=== PATIENT | female | born 1965 | race Caucasian/White ===

== ENCOUNTER 2019-10-14 17:10 | Emergency (ER) | payer MEDICARE, MEDICAID, SELFPAY ==
[2019-10-14 17:58] VITALS: BP 164/110; PULSE 99; RESP 18; TEMP 36.8; O2SAT 96; BMI 38.5
--- NOTE | 2019-10-14 19:07 | W.ED.HA ---
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 She has a past history of migraines and currently sees Dr. Powell for migraines. This headache is her typical migraine. She has right retro-orbital pain, photophobia and nausea. She has not had any vomiting. This started today and she rates this migraine and an 8/10. She denies any chest pain, shortness of breath, abdominal pain, upper respiratory symptoms, sinus pain and pressure. Review of Systems General: Reports: 10 or more systems reviewed and unremarkable except in HPI and below PFSH ED PFSH: Statuses (acute, chronic, etc) shown below reflect problem list status as previously entered and may not be historically accurate Social History Smoking and tobacco status: never smoked Physical Exam Narrative: EXAM NARRATIVE: Patient is a 54-year-old female who was lying in her exam room with the lights off. She appeared to be in moderate pain due to migraine. Const: COMMON NORMALS: oriented x3 HENMT: COMMON NORMALS: normocephalic HEAD & SCALP: normocephalic MOUTH: oral and palatal mucosa normal and moist mucous membranes abnormal (mild dryness) THROAT: posterior oropharynx normal and uvula midline Neck/C-Spine: COMMON NORMALS: supple GENERAL: Yes normal visual inspection Resp: COMMON NORMALS: normal respiratory effort, no retractions, no use of accessory muscles and clear to auscultation bilaterally AUSCULTATION: clear to auscultation bilaterally Cardio: COMMON NORMALS: regular rate, regular rhythm, S1 normal heart sound, S2 normal heart sound, no gallops, no clicks, no murmurs and peripheral pulses 2+ throughout RATE: regular rate RHYTHM: regular rhythm HEART SOUNDS: S1 normal and S2 normal PERIPHERAL PULSES: pulses 2+ throughout GI: COMMON NORMALS: normal to inspection, nondistended, normoactive bowel sounds, soft to palpation, non-tender and no masses PALPATION: Yes soft : COMMON NORMALS: Yes no CVA tenderness BLADDER/KIDNEY EXAM: Yes no CVA tenderness Back/Pelvis: COMMON NORMALS: no CVA tenderness Neuro: COMMON NORMALS: oriented x3, CN's II-XII intact bilaterally, moves all extremities, no focal motor deficits and no sensory deficits noted SENSORY EXAM: Yes extremities (intact) MOTOR EXAM: strength 5/5 throughout Course Vital Signs: Vital signs: Vital Signs Temperature 98.3 F 10/14/19 17:58 Pulse Rate 100 10/14/19 21:05 Respiratory Rate 14 10/14/19 21:05 Blood Pressure 151/97 10/14/19 21:05 Pulse Oximetry 95 10/14/19 21:05 MDM - Headache MDM Narrative: Medical decision making narrative: Patient is a 54-year-old female who comes into the ED with an acute migraine. Patient has a past medical history of chronic migraines and sees Dr. Powell for migraine management. Physical exam was unremarkable and no neurological deficits found upon examination. Patient was given IV fluids, Decadron, Toradol, Reglan, Benadryl While in the ED. Her migraine greatly improved and she was discharged and told to follow-up with primary care doctor in 5-7 days. Discharge Plan Discharge Patient Disposition: Home, Self-Care Clinical Impression: Migraine Qualifiers: Migraine type: ophthalmoplegic Intractability: intractable Qualified Code(s): G43.B1 - Ophthalmoplegic migraine, intractable Condition: Stable Prescriptions: No Action pregabalin [Lyrica] 200 mg capsule 200 mg PO TID RF: 0 albuterol sulfate [ProAir HFA] 90 mcg/actuation HFA aerosol inhaler 2 puff INHALATION QID PRN (Reason: shortness of breath or wheezing) RF: 0 Linzess 290 mcg capsule 290 mcg PO QAM RF: 0 estradiol [Estrace] 2 mg tablet 2 mg PO ONCE RF: 0 losartan 50 mg tablet 50 mg PO ONCE RF: 0 furosemide 20 mg tablet 20 mg PO BID RF: 0 Aimovig Autoinjector 140 mg/mL auto-injector 140 mg SUBCUT .MONTHLY RF: 0 diltiazem HCl [Cardizem CD] 300 mg capsule,extended release 24hr 300 mg PO QAM RF: 0 pantoprazole [Protonix] 40 mg tablet,delayed release (DR/EC) 40 mg PO QAM RF: 0 duloxetine [Cymbalta] 60 mg capsule,delayed release(DR/EC) 60 mg PO BID RF: 0 clonidine HCl 0.1 mg tablet 0.1 mg PO ONCE PRN (Reason: hypertensive emergency) RF: 0 Discharge Orders: Discharge Order (Routine); Ordered 10/14/19 Ordered By: Alex Salazar Referrals: Estephania Booker DO [Primary Care Provider] - Discharge Diet: Regular Discharge Activity: Resume usual activity Activity Restrictions/Additional Instructions: Follow-up here primary care doctor in 5-7 days. Contact neurologist to follow-up on recent migraines. 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
[2019-10-14 19:09] VITALS: BP 136/107; PULSE 91; RESP 16; O2SAT 95
[2019-10-14] MEDS: sodium chloride 0.9% 1,000 ML 999 ML IV (19:49)
[2019-10-14] MEDS: diphenhydrAMINE 50 mg/mL SDV 1mL 25 MG IVP (19:52)
[2019-10-14] MEDS: metoclopramide 5 mg/mL SDV 2 mL 10 MG IV (19:52)
[2019-10-14] MEDS: dexamethasone 10 mg/mL INJ IVP (19:53)
[2019-10-14] MEDS: ketorolac 30 mg/mL INJ IVP (19:54)
[2019-10-14 19:57] VITALS: BP 173/104; PULSE 95; RESP 16; O2SAT 95
[2019-10-14 20:57] VITALS: BP 170/118; PULSE 99; RESP 16; O2SAT 96
[2019-10-14 21:05] VITALS: BP 151/97; PULSE 100; RESP 14; O2SAT 95
--- NOTE | 2019-10-14 21:11 | PC.NURSE ---
CATHETER INTACT UPON REMOVAL
== END 2019-10-14 21:11 | disposition home or self-care (01) ==
PROVIDERS: Emergency Provider Physician Assistant; Family Provider Family Medicine; PCP Family Medicine
DX: G43.B1 Ophthalmoplegic migraine, intractable (principal)
CPT/HCPCS: 96360; 96374; 99281; J1100; J1200; J1885; J2765; J7030

== ENCOUNTER → 2019-10-23 14:13 | Outpatient (BNVA) | payer MEDICARE, MEDICAID, SELFPAY | PROVIDERS: Family Provider Family Medicine; PCP Family Medicine; Visit Provider Specialist | DX: G43.019 Migraine without aura, intractable, without status migrainosus (principal); F44.5 Conversion disorder with seizures or convulsions; F60.3 Borderline personality disorder | CPT/HCPCS: 99214 ==

== ENCOUNTER 2019-10-29 13:19 | Outpatient (CLI) | payer MEDICARE, MEDICAID, SELFPAY ==
--- NOTE | 2019-10-29 13:50 | XR_ITS ---
WS: [id number] RIGHT SHOULDER: 3 VIEW(S) TECHNIQUE: Internal and external rotation with Y view. HISTORY: PAIN IN RIGHT SHOULDER COMPARISON: None available. No fracture or dislocation or soft tissue abnormality. Glenohumeral and AC joints are unremarkable. XR/XR shoulder RT min 2V* [id number] IMPRESSION: Normal RIGHT shoulder.
== END 2019-10-29 13:20 | disposition home or self-care (01) ==
LOC: RADWPI 13:23
PROVIDERS: Family Provider Family Medicine; PCP Family Medicine; Visit Provider Family Medicine
DX: M25.511 Pain in right shoulder (principal)
CPT/HCPCS: 73030

== ENCOUNTER 2019-11-10 19:13 | Emergency (ER) | payer MEDICARE, MEDICAID, SELFPAY ==
[2019-11-10 19:24] VITALS: BP 154/91; PULSE 89; RESP 16; TEMP 36.9; O2SAT 97; BMI 37.4
--- NOTE | 2019-11-10 20:36 | W.ED.HA ---
HPI - Headache General: Chief Complaint: Headache Stated Complaint: MIGRAINE Time Seen by Provider: 11/10/19 20:21 Source: patient Mode of arrival: ambulatory Limitations: no limitations History of Present Illness: HPI Narrative: Patient comes in today for complaints of migraine. Patient reports headache is similar to previous migraines. Patient reports not being able to refill her Aimovig prior to close of pharmacy on Tuesday. Patient tried DHE spray without any relief of pain Review of Systems General: Reports: 10 or more systems reviewed and unremarkable except in HPI and below Neuro: Reports: headache PFSH ED PFSH: Statuses (acute, chronic, etc) shown below reflect problem list status as previously entered and may not be historically accurate Medical History (Updated 11/10/19 @ 23:12 by ELLYN Barksdale) Depression with anxiety (Acute) Herpes genitalia (Acute) Hot flashes (Acute) HTN (hypertension) with goal to be determined (Acute) Irritable bowel disease (Acute) Family History (Updated 10/24/19 @ 13:48 by Inga Damon MA) Other Anesthesia complication CAD (coronary artery disease) Cancer Chronic kidney disease (CKD) Dementia Diabetes Hypertension Psychiatric illness Stroke Suicide Denies family history of Clotting disorder Hyperlipidemia Bleeding disorder Family history of premature coronary artery disease Lung disease Social History Smoking and tobacco status: never smoked Alcohol intake: former Desire information about alcohol rehabilitation?: No Counseling given: No Desire information about substance/drug rehabilitation?: No Counseling given: No Adopted: No Caregiver/support person: Yes Lives independently: Yes Housing: House Marital status: Number of children: 1 Number of grandchildren: 4 Highest education level completed: Some College, No Degree service: No Current occupational status: retired and disabled Current occupational exposures/hazards: No Pets and animals: No History of recent travel: No Leisure activites: reading Sexually active: No Current gender identity: Female Special lisa needs: No Agree to transfusion: Yes Physical Exam Const: COMMON NORMALS: no apparent distress and oriented x3 GENERAL APPEARANCE: cooperative HENMT: COMMON NORMALS: normocephalic, external ears normal, EAC's normal, TM's normal bilaterally and external nose normal HEAD & SCALP: normal to inspection and normocephalic FACE & SINUS: normal facial exam NOSE: external nose normal GENERAL EAR: hearing not grossly impaired EXTERNAL EAR: Yes external ears normal EXTERNAL AUDITORY CANAL: EAC's normal TYMPANIC MEMBRANE: TM's normal bilaterally MOUTH: oral and palatal mucosa normal THROAT: posterior oropharynx normal Eye: COMMON NORMALS: PERRL and EOMs intact bilaterally PUPIL: Yes PERRL Neck/C-Spine: COMMON NORMALS: full ROM and no lymphadenopathy Lymph: LYMPHATIC: no lymphedema noted Chest: COMMONS NORMALS: inspection of chest normal and palpation of chest normal Resp: COMMON NORMALS: normal respiratory effort and clear to auscultation bilaterally AUSCULTATION: clear to auscultation bilaterally Cardio: COMMON NORMALS: regular rate and regular rhythm RATE: regular rate RHYTHM: regular rhythm GI: COMMON NORMALS: normal to inspection, nondistended, normoactive bowel sounds and non-tender : COMMON NORMALS: Yes no CVA tenderness BLADDER/KIDNEY EXAM: Yes no CVA tenderness Back/Pelvis: COMMON NORMALS: no CVA tenderness and thoracic and lumbar spine normal to inspection Extremity: COMMON NORMALS: normal to inspection GENERAL: No edema Neuro: COMMON NORMALS: oriented x3, moves all extremities and no focal motor deficits Psych: COMMON NORMALS: mental status grossly normal and cooperative Skin: COMMON NORMALS: no rashes or lesions noted GENERAL SKIN EXAM: no rashes or lesions noted Course ED course: 2133, patient reports minimal pain relief from treatment at this time, will infuse 500 ml of saline and treat further with 15 mg toradol and 12.5 mg promethazine. wjw Vital Signs: Vital signs: Vital Signs Temperature 98.4 F 11/10/19 19:24 Pulse Rate 74 11/10/19 23:27 Respiratory Rate 18 11/10/19 23:27 Blood Pressure 182/97 11/10/19 23:27 Pulse Oximetry 100 11/10/19 23:27 MDM - Headache MDM Narrative: Medical decision making narrative: Patient comes in today with complaints of migraine. On exam patient appeared well with no focal neural deficits. Differential diagnosis includes migraine, status migrainous, tension headache, malingering. Patient was medicated with Benadryl and Reglan with minimal relief of headache, we then dosed patient with some Toradol and promethazine which she reported some improvement. Patient then asked for a dose of DHE and was given 1 mg. Patient did have some further improvement after the DHE rating her pain at a 4 out of 10 scale. Patient then was wanting to go home to sleep. Patient was recommended to follow-up with primary care or return for worsening signs and symptoms. Patient reports understanding agreed to plan. Discharge Plan Discharge Patient Disposition: Home, Self-Care Clinical Impression: Migraine Qualifiers: Migraine type: without aura Status migrainosus presence: without status migrainosus Intractability: intractable Qualified Code(s): G43.019 - Migraine without aura, intractable, without status migrainosus Condition: Stable Prescriptions: No Action dihydroergotamine [Migranal] 0.5 mg/pump act. (4 mg/mL) spray,non-aerosol 1 spray INTRANASAL .COMPLEX PRN (Reason: Episodic migraine) Qty: 4 RF: 0 clonidine HCl 0.1 mg tablet 0.1 mg PO ONCE PRN (Reason: hypertensive emergency) 30 Days Qty: 30 RF: 0 diltiazem HCl [Cardizem CD] 300 mg capsule,extended release 24hr 300 mg PO QAM 90 Days Qty: 90 RF: 0 duloxetine [Cymbalta] 60 mg capsule,delayed release(DR/EC) 120 mg PO DAILY 90 Days Qty: 180 RF: 0 estradiol [Estrace] 2 mg tablet 2 mg PO DAILY Qty: 30 RF: 0 furosemide 20 mg tablet 20 mg PO BID 90 Days Qty: 180 RF: 0 Linzess 290 mcg capsule 290 mcg PO QAM 90 Days Qty: 90 RF: 0 losartan 50 mg tablet 50 mg PO DAILY 90 Days Qty: 90 RF: 0 pantoprazole [Protonix] 40 mg tablet,delayed release (DR/EC) 40 mg PO QAM 90 Days Qty: 90 RF: 0 pregabalin [Lyrica] 200 mg capsule 200 mg PO TID 30 Days Qty: 90 RF: 0 acyclovir 400 mg tablet 400 mg PO BID 60 Days Qty: 60 RF: 0 Aimovig Autoinjector 140 mg/mL auto-injector 140 mg SUBCUT .MONTHLY RF: 0 dihydroergotamine 0.5 mg/pump act. (4 mg/mL) spray,non-aerosol 1 spray INTRANASAL .prn PRN (Reason: migraine headache) Qty: 5 RF: 3 Seroquel 100 mg tablet 100 mg PO DAILY RF: 0 Discharge Orders: Discharge Order (Routine); Ordered 11/10/19 Ordered By: Daniel Soto Referrals: Estephania Booker DO [Primary Care Provider] - Discharge Diet: Usual diet Discharge Activity: Increase activity as tolerated Patient Instructions: Headache - Migraine (Adult) Activity Restrictions/Additional Instructions: Drink plenty of water Continue routine medications as directed Follow-up with primary care in one week Discharge Date/Time: 11/10/19 23:28 Coding Level of Care Code ED Environmental Compliance Inspector for Chg Fwd Exam Problem Focused
[2019-11-10] MEDS: diphenhydrAMINE 50 mg/mL SDV 1mL IVP (20:48)
[2019-11-10] MEDS: metoclopramide 5 mg/mL SDV 2 mL 10 MG IVP (20:49)
[2019-11-10] MEDS: ketorolac 30 mg/mL INJ 15 MG IVP (21:54)
[2019-11-10] MEDS: promethazine 25 mg/mL SDV 1 mL 12.5 MG IV (21:54)
[2019-11-10] MEDS: sodium chloride 0.9% 500 ML 999 ML IV (21:55)
--- NOTE | 2019-11-10 21:56 | PC.NURSE ---
PHENERGEN 12.5 MG DILUTED IN SALINE BAG OF 500 ML.
[2019-11-10] MEDS: dihydroergotamine 1 mg/mL Inj IVP (22:49)
[2019-11-10 23:27] VITALS: BP 182/97; PULSE 74; RESP 18; O2SAT 100
== END 2019-11-10 23:28 | disposition home or self-care (01) ==
PROVIDERS: Emergency Provider Nurse Practitioner Family; Family Provider Family Medicine; PCP Family Medicine
DX: G43.019 Migraine without aura, intractable, without status migrainosus (principal); I10 Essential (primary) hypertension
CPT/HCPCS: 96360; 96374; 96375; 99282; 99283; J1110; J1200; J1885; J2550; J2765; J7040

== ENCOUNTER 2019-11-13 15:42 | Emergency (ER) | payer MEDICARE, MEDICAID, SELFPAY ==
[2019-11-13 15:48] VITALS: BP 166/88; PULSE 94; RESP 16; TEMP 36.6; O2SAT 98; BMI 38.0
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
[2019-11-13 18:10] VITALS: BP 148/80; PULSE 90; RESP 18; TEMP 37; O2SAT 98
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
[2019-11-13] MEDS: HYDROcodone-acetaminophen 10-325 mg Tablet 1 TAB PO (18:31)
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
[2019-11-13] MEDS: dexamethasone 10 mg/mL INJ IM (20:25)
[2019-11-13] MEDS: diphenhydrAMINE 50 mg/mL SDV 1mL 25 MG IM (20:26)
[2019-11-13] MEDS: metoclopramide 5 mg/mL SDV 2 mL 10 MG IM (20:29)
[2019-11-13] MEDS: SUMAtriptan 6 mg/0.5 mL SDV SUBCUT (20:30)
[2019-11-13 21:22] VITALS: BP 160/82; PULSE 89; RESP 14; TEMP 36.7; O2SAT 97
== END 2019-11-13 20:45 | disposition home or self-care (01) ==
PROVIDERS: Emergency Provider Physician Assistant; Family Provider Family Medicine; PCP Family Medicine
DX: S13.4XXA Sprain of ligaments of cervical spine, initial encounter (principal); G44.209 Tension-type headache, unspecified, not intractable; I10 Essential (primary) hypertension; R40.2412 Glasgow coma scale score 13-15, at arrival to emergency department; V89.2XXA Person injured in unspecified motor-vehicle accident, traffic, initial encounter; Y92.410 Unspecified street and highway as the place of occurrence of the external cause
CPT/HCPCS: 70450; 71046; 72125; 72131; 96372; 99281; 99283; J1100; J1200; J2765; J3030

== ENCOUNTER → 2019-11-22 09:50 | Outpatient (BNVA) | payer MEDICARE, MEDICAID, SELFPAY | PROVIDERS: Family Provider Family Medicine; PCP Family Medicine; Visit Provider Nurse Practitioner | DX: M54.16 Radiculopathy, lumbar region (principal); S13.4XXA Sprain of ligaments of cervical spine, initial encounter; X58.XXXA Exposure to other specified factors, initial encounter; Z79.891 Long term (current) use of opiate analgesic | CPT/HCPCS: 99214 ==

== ENCOUNTER 2019-11-24 18:10 | Emergency (ER) | payer MEDICARE, MEDICAID, SELFPAY ==
[2019-11-24 18:30] VITALS: BP 170/94; PULSE 100; RESP 28; TEMP 36.7; O2SAT 98; BMI 37.4
--- NOTE | 2019-11-24 19:01 | PC.NURSE ---
Patient reports that she has a severe migraine. Patient states this migraine started around 1600. Patient reports that she took her PRN medication that the neurologist prescribed. Patient states nothing has helped. Patient reports that she is nauseous and is having light sensitivity.
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
[2019-11-24] MEDS: ondansetron 2 mg/ML SDV 2 mL 8 MG IVP (19:35)
[2019-11-24] MEDS: ketorolac 30 mg/mL INJ IVP (19:36)
[2019-11-24] MEDS: methocarbamol 750 mg Tablet PO (19:37)
[2019-11-24] MEDS: sodium chloride 0.9% 1,000 ML 999 ML IV (19:41)
[2019-11-24] MEDS: dexamethasone 4 mg/mL INJ 6 MG IVP (20:30)
[2019-11-24] MEDS: diphenhydrAMINE 50 mg/mL SDV 1mL IVP (21:30)
[2019-11-24] MEDS: dihydroergotamine 1 mg/mL Inj 0.5 MG IVP (21:33)
[2019-11-24] MEDS: HYDROcodone-acetaminophen 7.5-325 mg Tablet 1 TAB PO (21:52)
[2019-11-24 22:42] VITALS: BP 142/90; PULSE 98; RESP 16; O2SAT 98
== END 2019-11-24 22:42 | disposition home or self-care (01) ==
PROVIDERS: Emergency Provider Nurse Practitioner Family; Family Provider Family Medicine; PCP Family Medicine
DX: G43.909 Migraine, unspecified, not intractable, without status migrainosus (principal)
CPT/HCPCS: 96360; 96361; 96374; 96375; 99282; 99283; J1100; J1110; J1200; J1885; J2405; J7030

== ENCOUNTER → 2019-11-26 14:10 | Outpatient (BNVA) | payer MEDICARE, MEDICAID, SELFPAY | PROVIDERS: Family Provider Family Medicine; PCP Family Medicine; Visit Provider Nurse Practitioner Psychiatric/Mental Health | DX: F33.3 Major depressive disorder, recurrent, severe with psychotic symptoms (principal); F40.218 Other animal type phobia | CPT/HCPCS: 99214 ==

== ENCOUNTER 2019-12-12 10:34 | Outpatient (RCR) | payer OTHER, MEDICARE, MEDICAID, SELFPAY | END 2020-01-08 23:59 | disposition home or self-care (01) | LOC: SPT 10:34 | PROVIDERS: Family Provider Family Medicine; PCP Family Medicine; Referring Provider Family Medicine; Visit Provider Family Medicine | DX: S13.4XXD Sprain of ligaments of cervical spine, subsequent encounter (principal); X58.XXXD Exposure to other specified factors, subsequent encounter | CPT/HCPCS: 97110; 97161 ==

== ENCOUNTER → 2020-01-14 08:46 | Outpatient (BNVA) | payer MEDICARE, MEDICAID, SELFPAY | PROVIDERS: Family Provider Family Medicine; PCP Family Medicine; Visit Provider Nurse Practitioner Psychiatric/Mental Health | DX: F33.3 Major depressive disorder, recurrent, severe with psychotic symptoms (principal); F40.218 Other animal type phobia | CPT/HCPCS: 99214 ==

== ENCOUNTER → 2020-01-16 08:50 | Outpatient (BNVA) | payer MEDICARE, MEDICAID, SELFPAY | PROVIDERS: Family Provider Family Medicine; PCP Family Medicine; Visit Provider Anesthesiology | DX: G89.29 Other chronic pain (principal); M54.16 Radiculopathy, lumbar region; Z79.891 Long term (current) use of opiate analgesic | CPT/HCPCS: 99214 ==

== ENCOUNTER → 2020-02-05 08:25 | Outpatient (BNVA) | payer MEDICARE, MEDICAID, SELFPAY | PROVIDERS: Family Provider Family Medicine; PCP Family Medicine; Visit Provider Social Worker | DX: F33.3 Major depressive disorder, recurrent, severe with psychotic symptoms (principal); F60.3 Borderline personality disorder | CPT/HCPCS: 90834 ==

== ENCOUNTER 2020-02-12 20:10 | Emergency (ER) | payer MEDICARE, MEDICAID, SELFPAY ==
[2020-02-12 20:16] VITALS: BP 159/99; PULSE 96; RESP 18; TEMP 36.6; O2SAT 99; BMI 35.6
--- NOTE | 2020-02-12 22:01 | ED_ITS ---
HPI - Headache General: Chief Complaint: Headache Stated Complaint: migraine Time Seen by Provider: 02/12/20 21:47 Source: patient Mode of arrival: ambulatory Limitations: no limitations History of Present Illness: HPI Narrative: Patient is a 54-year-old female who presents to ED today with complaints of a migraine headache that began around 1 PM this afternoon. Patient states she has a history of migraine headaches and states her headache today feels identical. She is having some nausea without vomiting. She states she tried to doses of her sumatriptan as well as a Tylenol migraine without relief. She is currently rating her headache at a 9.5/10. MD elicited complaint: headache and migraine Pertinent past history: migraines Onset (ago): hour(s) Onset description: gradually Severity: severe Pain scale (0-10): 9 Relieving factors: rest Associated symptoms: Reports no associated symptoms and nausea; Deny chest pain, confusion, fever(s), malaise, rash or vomiting Treatments prior to arrival: acetaminophen and migraine medication Review of Systems Const: Denies: fever, chills, fatigue or malaise Eyes: Reports: photophobia; Denies: change in vision, blurry vision, eye discomfort, floaters or seeing flashes ENMT: Denies: throat pain, enlarged tonsils, painful swallowing or nasal congestion Card: Denies: chest pain Resp: Denies: shortness of breath GI: Reports: nausea; Denies: abdominal pain or vomiting Musc: Denies: neck pain or back pain Skin/Breast: Denies: rash Neuro: Reports: headache; Denies: numbness in extremities, weakness in extremities, changes in sensation, lack of coordination, difficulty walking, frequent falls, dizziness, vertigo, confusion, behavioral changes, slurred speech, difficulty communicating thoughts or seizure-like activity [facility] ED PFSH: Surgical History (Updated 02/07/20 @ 10:56 by Krys Colón APN, JOHNATHON) H/O tubal ligation (~2008) History of augmentation of both breasts (~2012) SILICONE IMPLANTS Hx of abdominoplasty (~2009) Hx of section (~2008) Hx of decompressive lumbar laminectomy L5-S1 [facility] IN [place], [place]. Hx of hernia repair (~2012) umbilical Hx of hysterectomy (~2008) CHRISTINA-- ovaries spared. Social History Smoking and tobacco status: never smoked Alcohol intake: current Alcohol intake frequency: holidays/special occasions only Physical Exam Const: COMMON NORMALS: no apparent distress, average body habitus, oriented x3, no limitations, healthy appearing, alert and well nourished ORIENTATION/CONSCIOUSNESS: Yes oriented to person, Yes oriented to place and Yes oriented to time HENMT: COMMON NORMALS: normocephalic, head/scalp atraumatic, hearing grossly normal bilaterally, external ears normal, EAC's normal, TM's normal bilaterally, nasal mucous membranes and turbinates normal and oropharynx normal HEAD & SCALP: normocephalic and atraumatic FACE & SINUS: normal facial exam and sinuses nontender NOSE: nasal mucous membranes and turbinates normal EXTERNAL EAR: Yes external ears normal EXTERNAL AUDITORY CANAL: EAC's normal TYMPANIC MEMBRANE: TM's normal bilaterally Eye: COMMON NORMALS: PERRL and EOMs intact bilaterally PUPIL: Yes PERRL Neck/C-Spine: COMMON NORMALS: full ROM, no lymphadenopathy and no meningeal signs Resp: COMMON NORMALS: normal respiratory effort and clear to auscultation bila terally AUSCULTATION: clear to auscultation bilaterally Cardio: COMMON NORMALS: regular rate and regular rhythm RATE: regular rate RHYTHM: regular rhythm Neuro: [place] COMA SCALE: document GCS findings Institute coma scale eye opening: Spontaneous Institute coma scale verbal response: Orientated Institute coma scale motor response: Obey commands Institute coma scale total score: 15 COMMON NORMALS: oriented x3, CN's II-XII intact bilaterally, moves all extremities, no focal motor deficits, no sensory deficits noted and gait normal SENSORIUM/ORIENTATION: Yes alert, Yes oriented to person, Yes oriented to place and Yes oriented to time MENINGEAL SIGNS: Yes no meningeal signs Skin: COMMON NORMALS: no rashes or lesions noted GENERAL SKIN EXAM: no rashes or lesions noted Course Vital Signs: Vital signs: Vital Signs Temperature 97.8 F 02/12/20 20:16 Pulse Rate 96 02/12/20 20:16 Respiratory Rate 18 02/12/20 20:16 Blood Pressure 159/99 02/12/20 20:16 Pulse Oximetry 99 02/12/20 20:16 MDM - Headache MDM Narrative: Medical decision making narrative: pts SILVERMAN down from a 9.5/10 to a 0/10; she is ready to be discharged Discharge Plan Discharge Patient Disposition: Home, Self-Care Clinical Impression: Migraine Qualifiers: Migraine type: without aura Status migrainosus presence: without status migrainosus Intractability: not intractable Qualified Code(s): G43.009 - Migraine without aura, not intractable, without status migrainosus Condition: Stable Prescriptions: No Action diphenhydramine HCl 25 mg tablet 25 mg PO ONCE PRN (Reason: Headache) RF: 0 sumatriptan 5 mg/actuation spray,non-aerosol 20 mg INTRANASAL Q2H MDD 40mg in 24 hours PRN (Reason: migraine headache) Qty : 6 RF: 0 estradiol 2 mg tablet 2 mg PO DAILY Qty: 90 RF: 3 fluconazole [Diflucan] 150 mg tablet 150 mg PO Q5D Qty: 2 RF: 0 clonidine HCl 0.1 mg tablet 0.1 mg PO DAILY PRN (Reason: high bp) RF: 0 pregabalin 150 mg capsule 150 mg PO TID 30 Days Qty: 90 RF: 2 duloxetine [Cymbalta] 60 mg capsule,delayed release(DR/EC) 120 mg PO DAILY 90 Days Qty: 180 RF: 2 Aimovig Autoinjector 140 mg/mL auto-injector 140 mg SUBCUT .MONTHLY Qty: 1 RF: 6 diltiazem HCl 300 mg capsule,extended release 24 hr 300 mg PO DAILY Qty: 90 RF: 3 Discharge Orders: Discharge Order (Routine); Ordered 02/12/20 Ordered By: Emilia Loaiza Referrals: Samuel Miguel MD [Primary Care Provider] - Estephania Booker DO [Family Provider] - Discharge Diet: Usual diet Discharge Activity: Increase activity as tolerated Patient Instructions: Headache - Migraine (Adult), Migraine Headache (ED) Coding Level of Care Code 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
[2020-02-12] MEDS: sodium chloride 0.9% 1,000 ML 999 ML IV (22:26)
[2020-02-12] MEDS: dexamethasone 10 mg/mL INJ 8 MG IVP (22:28)
[2020-02-12] MEDS: ketorolac 60 mg/2 mL INJ 30 MG IVP (22:32)
[2020-02-12] MEDS: diphenhydrAMINE 50 mg/mL SDV 1mL IVP (22:32)
[2020-02-12] MEDS: metoclopramide 5 mg/mL SDV 2 mL 10 MG IVP (22:33)
[2020-02-12 23:10] VITALS: BP 116/55; PULSE 82; RESP 18; O2SAT 98
== END 2020-02-12 23:11 | disposition home or self-care (01) ==
PROVIDERS: Emergency Provider Physician Assistant; Family Provider Family Medicine; PCP Family Medicine
DX: G43.009 Migraine without aura, not intractable, without status migrainosus (principal)
CPT/HCPCS: 12345; 96361; 96374; 96375; 99282; 99283; J1100; J1200; J1885; J2765; J7030

== ENCOUNTER → 2020-02-22 14:49 | Outpatient (BNVA) | payer MEDICARE, MEDICAID, SELFPAY | PROVIDERS: Family Provider Family Medicine; PCP Family Medicine; Visit Provider Obstetrics & Gynecology | DX: N89.8 Other specified noninflammatory disorders of vagina (principal) | CPT/HCPCS: 87491; 87591; 87661 ==

== ENCOUNTER → 2020-03-10 08:20 | Outpatient (BNVA) | payer MEDICARE, MEDICAID, SELFPAY | PROVIDERS: Family Provider Family Medicine; PCP Family Medicine; Visit Provider Nurse Practitioner Psychiatric/Mental Health | DX: F33.3 Major depressive disorder, recurrent, severe with psychotic symptoms (principal); F40.218 Other animal type phobia | CPT/HCPCS: 99214 ==

== ENCOUNTER 2020-03-24 18:32 | Emergency (ER) | payer MEDICARE, MEDICAID, SELFPAY ==
[2020-03-24 18:39] VITALS: BP 111/79; PULSE 96; RESP 15; TEMP 36.5; O2SAT 99; BMI 38.3
--- NOTE | 2020-03-24 18:51 | W.ED.HA ---
HPI - Headache General: Chief Complaint: Headache Stated Complaint: walker Time Seen by Provider: 03/24/20 18:47 History of Present Illness: HPI Narrative: Patient is complaining classic migraine medication she is at home was not working which is sumatriptan and started around 12:00 with the pain MD elicited complaint: migraine Onset (ago): hour(s) Time: 12:00 Location: frontal and occipital Severity: severe Quality & Timing: aching and similar to previous headaches Exacerbating factors: light and noise Relieving factors: nothing Associated symptoms: Reports no associated symptoms; Deny chest pain, fever(s), nausea, rash or vomiting Review of Systems Const: Denies: fever(s), chills or body aches Eyes: Denies: change in vision or blurry vision ENMT: Denies: throat pain or nasal congestion Card: Denies: chest pain or dyspnea on exertion Resp: Denies: dyspnea, productive cough or non-productive cough GI: Denies: abdominal pain, nausea or vomiting Musc: Denies: extremity pain Skin/Breast: Denies: rash Neuro: Denies: headache(s) Psych: Denies: anxiety or depression Cecil/Lymph: Denies: easy bruising PFSH ED PFSH: Medical History Chronic low back pain Depression with anxiety Fear of insects (Unknown) Specifically tics Herpes genitalia Hot flashes HTN (hypertension) with goal to be determined Irritable bowel disease Long-term current use of opiate analgesic Lumbar radiculitis Major depressive disorder, recurrent, severe with psychotic symptoms Pain management contract signed Vaginal Discharge Surgical History H/O tubal ligation (~2008) History of augmentation of both breasts (~2012) SILICONE IMPLANTS Hx of abdominoplasty (~2009) Hx of section (~2008) Hx of decompressive lumbar laminectomy L5-S1 [facility] IN [place], [place]. Hx of hernia repair (~2012) umbilical Hx of hysterectomy (~2008) CHRISTINA-- ovaries spared. Family History Other Anesthesia complication CAD (coronary artery disease) Cancer Chronic kidney disease (CKD) Dementia Diabetes Hypertension Psychiatric illness Stroke Suicide Denies family history of Clotting disorder Hyperlipidemia Bleeding disorder Family history of premature coronary artery disease Lung disease Social History Smoking and tobacco status: never smoked Alcohol intake: current Alcohol intake frequency: holidays/special occasions only Alcohol type: wine Physical Exam Const: COMMON NORMALS: no acute distress, average body habitus and patient oriented x3 HENMT: COMMON NORMALS: normocephalic HEAD & SCALP: normal to inspection and normocephalic FACE & SINUS: normal facial exam Eye: COMMON NORMALS: conjunctivae normal GENERAL EYE: appearance normal, both eyes and all related structures CONJUNCTIVA: Yes conjunctivae normal Neck/C-Spine: COMMON NORMALS: no JVD Chest: COMMONS NORMALS: normal inspection of the chest Resp: COMMON NORMALS: normal respiratory effort and clear to auscultation bilaterally AUSCULTATION: clear to auscultation bilaterally Cardio: COMMON NORMALS: no JVD, regular rate and regular rhythm RATE: regular rate RHYTHM: regular rhythm GI: COMMON NORMALS: Normal to inspection, nondistended, normoactive bowel sounds present Extremity: COMMON NORMALS: normal to inspection and full ROM Neuro: COMMON NORMALS: patient oriented x3, CN's II-XII intact bilaterally, moves all extremities, no focal motor deficits and no sensory deficits noted Course Vital Signs: Vital signs: Vital Signs Temperature 97.7 F 03/24/20 18:39 Pulse Rate 96 03/24/20 18:39 Respiratory Rate 15 03/24/20 18:39 Blood Pressure 111/79 03/24/20 18:39 Pulse Oximetry 99 03/24/20 18:39 Discharge Plan Discharge Prescriptions: No Action diphenhydramine HCl 25 mg tablet 25 mg PO ONCE PRN (Reason: Headache) RF: 0 sumatriptan 5 mg/actuation spray,non-aerosol 20 mg INTRANASAL Q2H MDD 40mg in 24 hours PRN (Reason: migraine headache) Qty: 6 RF: 0 estradiol 2 mg tablet 2 mg PO DAILY Qty: 90 RF: 3 clonidine HCl 0.1 mg tablet 0.1 mg PO DAILY PRN (Reason: high bp) RF: 0 pregabalin 150 mg capsule 150 mg PO TID 30 Days Qty: 90 RF: 2 duloxetine [Cymbalta] 60 mg capsule,delayed release(DR/EC) 120 mg PO DAILY 90 Days Qty: 180 RF: 2 quetiapine [Seroquel] 50 mg tablet 50 mg PO .bedtime Qty: 30 RF: 1 Aimovig Autoinjector 140 mg/mL auto-injector 140 mg SUBCUT .MONTHLY Qty: 1 RF: 6 diltiazem HCl 300 mg capsule,extended release 24 hr 300 mg PO DAILY Qty: 90 RF: 3 Coding Level of Care Code ED 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
[2020-03-24] MEDS: sodium chloride 0.9% 1,000 ML 125 ML IV (19:22)
[2020-03-24] MEDS: dexamethasone 4 mg/mL INJ 8 MG IVP (19:24)
[2020-03-24] MEDS: ondansetron 2 mg/ML SDV 2 mL 8 MG IVP (19:24)
[2020-03-24] MEDS: diphenhydrAMINE 50 mg/mL SDV 1mL IVP (19:24)
[2020-03-24 20:51] VITALS: BP 160/86; PULSE 90; RESP 18; O2SAT 98
[2020-03-24] MEDS: ketorolac 30 mg/mL INJ IVP (20:56)
[2020-03-24 22:11] VITALS: BP 159/85; PULSE 86; RESP 18; O2SAT 97
== END 2020-03-24 22:13 | disposition home or self-care (01) ==
PROVIDERS: Emergency Provider Nurse Practitioner Family; PCP Family Medicine
DX: R51 Headache (principal); I10 Essential (primary) hypertension
CPT/HCPCS: 12345; 96361; 96365; 96374; 96375; 99283; J0131; J1100; J1200; J1885; J2405; J7030

== ENCOUNTER → 2020-03-26 15:20 | Outpatient (BNVA) | payer MEDICARE, MEDICAID, SELFPAY | PROVIDERS: PCP Family Medicine; Visit Provider Specialist | DX: G43.111 Migraine with aura, intractable, with status migrainosus (principal); M54.81 Occipital neuralgia | CPT/HCPCS: 64450; 99214; J1030; J3490 ==

== ENCOUNTER 2020-03-31 19:30 | Emergency (ER) | payer MEDICARE, MEDICAID, SELFPAY ==
[2020-03-31 19:35] VITALS: BP 185/75; PULSE 97; RESP 16; TEMP 37.1; O2SAT 98; BMI 38.7
--- NOTE | 2020-03-31 19:47 | W.ED.HA ---
HPI - Headache General: Chief Complaint: Headache Stated Complaint: migraine Time Seen by Provider: 03/31/20 19:40 Source: patient Mode of arrival: ambulatory Limitations: no limitations History of Present Illness: HPI Narrative: Patient is a 54-year-old female presents to ED today with a complaint of a migraine headache. Patient has an extensive migraine headache history and states her headache today feels identical to previous migraines. Patient recently saw Dr. Powell where she had nerve blocks of her occipital and postauricular nerves with Depo-Medrol and Bupivacaine. She has previously been on Botox and taken several other prophylactic and abortive medications for her migraines. She complains of some nausea without vomiting and blurry vision which is common for her migraines. She has no other complaints at this time. MD elicited complaint: headache and migraine Onset description: gradually Location: right, frontal and parietal Severity: severe Pain scale (0-10): 9 Associated symptoms: Reports nausea; Deny chest pain, confusion, fever(s), malaise, rash or vomiting Review of Systems General: Reports: 10 or more systems reviewed and unremarkable except in HPI and below Const: Denies: fever(s), chills, body aches, change in appetite, change in weight, fatigue or malaise Eyes: Reports: blurry vision and photophobia; Denies: floaters or seeing flashes ENMT: Denies: throat pain, enlarged tonsils or odynophagia Card: Denies: chest pain Resp: Denies: dyspnea GI: Reports: nausea; Denies: abdominal pain, vomiting or diarrhea Musc: Denies: neck pain or back pain Skin/Breast: Denies: rash Neuro: Reports: headache(s); Denies: numbness in extremities, weakness in extremities, sensory changes, lack of coordination, difficulty walking, frequent falls, dizziness, vertigo, confusion or Slurred speech present [facility] ED PFSH: Medical History (Updated 03/31/20 @ 21:19 by BRI Staples) Chronic low back pain Depression with anxiety Fear of insects (Unknown) Specifically tics Herpes genitalia Hot flashes HTN (hypertension) with goal to be determined Irritable bowel disease Long-term current use of opiate analgesic Lumbar radiculitis Major depressive disorder, recurrent, severe with psychotic symptoms Pain management contract signed Vaginal Discharge Surgical History H/O tubal ligation (~2008) History of augmentation of both breasts (~2012) SILICONE IMPLANTS Hx of abdominoplasty (~2009) Hx of section (~2008) Hx of decompressive lumbar laminectomy L5-S1 [facility] IN [place], [place]. Hx of hernia repair (~2012) umbilical Hx of hysterectomy (~2008) CHRISTINA-- ovaries spared. Family History Other Anesthesia complication CAD (coronary artery disease) Cancer Chronic kidney disease (CKD) Dementia Diabetes Hypertension Psychiatric illness Stroke Suicide Denies family history of Clotting disorder Hyperlipidemia Bleeding disorder Family history of premature coronary artery disease Lung disease Social History Smoking and tobacco status: never smoked Alcohol intake: current Alcohol intake frequency: holidays/special occasions only Alcohol type: wine History of recent travel: No Physical Exam Const: COMMON NORMALS: average body habitus, patient oriented x3, no limitations, healthy appearing, alert and well nourished GENERAL APPEARANCE: cooperative and in distress (sitting in dark room with hand over head) ORIENTATION/CONSCIOUSNESS: Yes oriented to person, Yes oriented to place and Yes oriented to time HENMT: COMMON NORMALS: normocephalic, atraumatic, hearing grossly normal bilaterally, external ears normal, EAC's normal, TM's normal bilaterally, Normal external nose present, Normal nasal mucous membranes and turbinates present, moist oral mucous membranes and oropharynx normal HEAD & SCALP: normal to inspection, normocephalic and atraumatic FACE & SINUS: normal facial exam and sinuses nontender NOSE: Normal external nose present and Normal nasal mucous membranes and turbinates present EXTERNAL EAR: Yes external ears normal EXTERNAL AUDITORY CANAL: EAC's normal TYMPANIC MEMBRANE: TM's normal bilaterally Eye: COMMON NORMALS: Equal, round and reactive pupils present, EOMs intact bilaterally, conjunctivae normal and no scleral icterus CONJUNCTIVA: Yes conjunctivae normal PUPIL: Yes Equal, round and reactive pupils present Neck/C-Spine: COMMON NORMALS: full ROM, no lymphadenopathy and no meningeal signs Resp: COMMON NORMALS: normal respiratory effort and clear to auscultation bilaterally AUSCULTATION: clear to auscultation bilaterally Cardio: COMMON NORMALS: regular rate and regular rhythm RATE: regular rate RHYTHM: regular rhythm Neuro: [place] COMA SCALE: document GCS findings [place] coma scale eye opening: Spontaneous [place] coma scale verbal response: Orientated [place] coma scale motor response: Obey commands [place] coma scale total score: 15 COMMON NORMALS: patient oriented x3, CN's II-XII intact bilaterally, moves all extremities, no focal motor deficits, no sensory deficits noted and gait normal SENSORIUM/ORIENTATION: Yes alert, Yes oriented to person, Yes oriented to place and Yes oriented to time MENINGEAL SIGNS: Yes no meningeal signs Skin: COMMON NORMALS: no rashes or lesions noted GENERAL SKIN EXAM: no rashes or lesions noted Course Vital Signs: Vital signs: Vital Signs Temperature 98.7 F 03/31/20 19:35 Pulse Rate 97 03/31/20 19:35 Respiratory Rate 16 03/31/20 19:35 Blood Pressure 185/75 03/31/20 19:35 Pulse Oximetry 98 03/31/20 19:35 MDM - Headache MDM Narrative: Medical decision making narrative: SILVERMAN down from a 06/19 to a 12/17; she feels comfortable and could like to go home; recommend she follow up with Dr. Powell as scheduled or as needed Discharge Plan Discharge Patient Disposition: Home, Self-Care Clinical Impression: Migraine headache Qualifiers: Migraine type: without aura Status migrainosus presence: without status migrainosus Intractability: not intractable Qualified Code(s): G43.009 - Migraine without aura, not intractable, without status migrainosus Condition: Stable Prescriptions: No Action diphenhydramine HCl 25 mg tablet 25 mg PO DAILY PRN (Reason: Headache) RF: 0 sumatriptan 5 mg/actuation spray,non-aerosol 20 mg INTRANASAL Q2H MDD 40mg in 24 hours PRN (Reason: migraine headache) Qty: 6 RF: 0 estradiol 2 mg tablet 2 mg PO DAILY Qty: 90 RF: 3 clonidine HCl 0.1 mg tablet 0.1 mg PO DAILY PRN (Reason: high bp) RF: 0 pregabalin 150 mg capsule 150 mg PO TID 30 Days Qty: 90 RF: 2 duloxetine [Cymbalta] 60 mg capsule,delayed release(DR/EC) 120 mg PO DAILY 90 Days Qty: 180 RF: 2 quetiapine [Seroquel] 50 mg tablet 50 mg PO .bedtime Qty: 30 RF: 1 Aimovig Autoinjector 140 mg/mL auto-injector 140 mg SUBCUT .MONTHLY Qty: 1 RF: 6 acyclovir 400 mg tablet 400 mg PO DAILY RF: 0 acetaminophen [Tylenol Extra Strength] 500 mg Tablet 500 mg PO Q6H PRN (Reason: Pain) RF: 0 pantoprazole 40 mg tablet,delayed release (DR/EC) 40 mg PO DAILY RF: 0 furosemide 20 mg tablet 20 mg PO DAILY RF: 0 diltiazem HCl 300 mg Capsule,Extended Release 24 Hr 300 mg PO DAILY RF: 0 Excedrin Migraine 250-250-65 mg Tablet 2 tab PO PRN PRN (Reason: Migraine Headache) RF: 0 Discharge Orders: Discharge Order (Routine); Ordered 03/31/20 Ordered By: Emilia Loaiza Referrals: Krys Bailey DO [Primary Care Provider] - Patient Instructions: Headache - Migraine (Adult), Migraine Headache (ED) Activity Restrictions/Additional Instructions: Please follow up with Dr. Powell as needed. Coding Level of Care Code ED Pediatrician for Melag Fwd Exam Comprehensive
[2020-03-31] MEDS: ketorolac 60 mg/2 mL INJ 30 MG IVP (20:25)
[2020-03-31] MEDS: dexamethasone 10 mg/mL INJ 6 MG IV (20:25)
[2020-03-31] MEDS: diphenhydrAMINE 50 mg/mL SDV 1mL IVP (20:25)
[2020-03-31] MEDS: ondansetron 2 mg/ML SDV 2 mL 4 MG IVP (20:32)
[2020-03-31] MEDS: sodium chloride 0.9% 1,000 ML 999 ML IV (20:33)
[2020-03-31 22:08] VITALS: BP 162/82; PULSE 88; RESP 18; O2SAT 99
== END 2020-03-31 22:10 | disposition home or self-care (01) ==
PROVIDERS: Emergency Provider Physician Assistant; PCP Family Medicine
DX: G43.009 Migraine without aura, not intractable, without status migrainosus (principal); I10 Essential (primary) hypertension
CPT/HCPCS: 12345; 96361; 96374; 96375; 99282; 99283; J1100; J1200; J1885; J2405; J7030

== ENCOUNTER → 2020-04-07 07:37 | Outpatient (BNVA) | payer MEDICARE, MEDICAID, SELFPAY | PROVIDERS: PCP Family Medicine; Visit Provider Nurse Practitioner Psychiatric/Mental Health | DX: F33.3 Major depressive disorder, recurrent, severe with psychotic symptoms (principal); F40.218 Other animal type phobia | CPT/HCPCS: 99214 ==

== ENCOUNTER 2020-04-13 20:21 | Emergency (ER) | payer MEDICARE, MEDICAID, SELFPAY ==
[2020-04-13 20:36] VITALS: BP 184/92; PULSE 98; RESP 18; TEMP 36.8; O2SAT 98; BMI 39.0
--- NOTE | 2020-04-13 21:21 | ED_ITS ---
HPI - Headache General: Chief Complaint: Headache Stated Complaint: migraine Time Seen by Provider: 04/13/20 21:16 Source: patient Mode of arrival: ambulatory Limitations: no limitations History of Present Illness: HPI Narrative: 54-year-old female who has a long history of migraines. Patient states this began gradually at 2:00 and is worsened. States pain is currently an 8 out of 10. She has photophobia and phonophobia it is improved with dark room. She denies any vomiting or fever. MD elicited complaint: headache Pertinent past history: migraines Onset (ago): hour(s) Onset description: gradually Severity: moderate Quality & Timing: throbbing Associated symptoms: Deny chest pain, fever(s), nausea, rash or vomiting Review of Systems Const: Denies: fever(s), chills, body aches or change in appetite Eyes: Denies: blurry vision or eye discomfort ENMT: Denies: throat pain or dental pain Card: Denies: chest pain Resp: Denies: dyspnea GI: Denies: abdominal pain, nausea, vomiting or diarrhea : Denies: dysuria Musc: Denies: neck pain or back pain Skin/Breast: Denies: rash Neuro: Reports: headache(s) Psych: Denies: depression Cecil/Lymph: Denies: easy bruising All/Imm: Denies: urticaria PFSH ED PFSH: Medical History Chronic low back pain Depression with anxiety Fear of insects (Unknown) Specifically tics Herpes genitalia Hot flashes HTN (hypertension) with goal to be determined Irritable bowel disease Long-term current use of opiate analgesic Lumbar radiculitis Major depressive disorder, recurrent, severe with psychotic symptoms Pain management contract signed Vaginal Discharge Surgical History H/O tubal ligation (~2008) History of augmentation of both breasts (~2012) SILICONE IMPLANTS Hx of abdominoplasty (~2009) Hx of section (~2008) Hx of decompressive lumbar laminectomy L5-S1 [facility] IN [place], [place]. Hx of hernia repair (~2012) umbilical Hx of hysterectomy (~2008) CHRISTINA-- ovaries spared. Family History Other Anesthesia complication CAD (coronary artery disease) Cancer Chronic kidney disease (CKD) Dementia Diabetes Hypertension Psychiatric illness Stroke Suicide Denies family history of Clotting disorder Hyperlipidemia Bleeding disorder Family history of premature coronary artery disease Lung disease Social History Smoking and tobacco status: never smoked Alcohol intake: current Alcohol intake frequency: holidays/special occasions only Alcohol type: wine History of recent travel: No Physical Exam Const: COMMON NORMALS: no acute distress, patient oriented x3 and healthy appearing HENMT: COMMON NORMALS: normocephalic and atraumatic HEAD & SCALP: normocephalic and atraumatic Eye: COMMON NORMALS: Equal, round and reactive pupils present and EOMs intact bilaterally PUPIL: Yes Equal, round and reactive pupils present Neck/C-Spine: COMMON NORMALS: full ROM and supple Chest: COMMONS NORMALS: normal inspection of the chest and normal palpation of entire chest wall Resp: COMMON NORMALS: normal respiratory effort, No retractions, No use of accessory muscles and clear to auscultation bilaterally AUSCULTATION: clear to auscultation bilaterally Cardio: COMMON NORMALS: regular rate, regular rhythm and No murmurs present (Cardio) RATE: regular rate RHYTHM: regular rhythm GI: COMMON NORMALS: Normal to inspection, nondistended, normoactive bowel sounds present, Soft to palpation, non-tender and no masses PALPATION: Yes Soft to palpation Extremity: COMMON NORMALS: normal to inspection and full ROM Neuro: COMMON NORMALS: patient oriented x3, moves all extremities and no focal motor deficits Psych: COMMON NORMALS: mental status grossly normal, Normal thought process present and cooperative THOUGHT PROCESS: Normal thought process present Skin: COMMON NORMALS: no rashes or lesions noted and no wounds GENERAL SKIN EXAM: no rashes or lesions noted Course Vital Signs: Vital signs: Vital Signs Temperature 98.2 F 04/13/20 20:36 Pulse Rate 90 04/13/20 22:17 Respiratory Rate 18 04/13/20 22:17 Blood Pressure 172/104 04/13/20 22:17 Pulse Oximetry 99 04/13/20 22:17 MDM - Headache MDM Narrative: Medical decision making narrative: Patient presents here with headache that is likely a migraine headache. Patient's headache is improved here after Reglan and Benadryl. She has no signs of meningitis or subarachnoid hemorrhage. She does have slight high blood pressure likely due to her headache. Patient's pupils are equal round and reactive. She is to follow-up with primary care doctor in 2 to 4 days and return if worsening. Discharge Plan Discharge Patient Disposition: Home, Self-Care Clinical Impression: Migraine headache Qualifiers: Migraine type: unspecified Status migrainosus presence: without status migrainosus Intractability: not intractable Qualified Code(s): G43.909 - Migraine, unspecified, not intractable, without status migrainosus Condition: Stable Prescriptions: No Action diphenhydramine HCl 25 mg tablet 25 mg PO DAILY PRN (Reason: Headache) RF: 0 sumatriptan 5 mg/actuation spray,non-aerosol 20 mg INTRANASAL Q2H MDD 40mg in 24 hours PRN (Reason: migraine headache) Qty: 6 RF: 0 estradiol 2 mg tablet 2 mg PO DAILY Qty: 90 RF: 3 clonidine HCl 0.1 mg tablet 0.1 mg PO DAILY PRN (Reason: high bp) RF: 0 pregabalin 150 mg capsule 150 mg PO TID 30 Days Qty: 90 RF: 2 duloxetine [Cymbalta] 60 mg capsule,delayed release(DR/EC) 120 mg PO DAILY 90 Days Qty: 180 RF: 2 quetiapine [Seroquel] 50 mg tablet 50 mg PO .bedtime Qty: 30 RF: 3 cyproheptadine 4 mg tablet 4 mg PO .bedtime Qty: 30 RF: 3 Aimovig Autoinjector 140 mg/mL auto-injector 140 mg SUBCUT .MONTHLY Qty: 1 RF: 6 acyclovir 400 mg tablet 400 mg PO DAILY RF: 0 acetaminophen [Tylenol Extra Strength] 500 mg Tablet 500 mg PO Q6H PRN (Reason: Pain) RF: 0 pantoprazole 40 mg tablet,delayed release (DR/EC) 40 mg PO DAILY RF: 0 furosemide 20 mg tablet 20 mg PO DAILY RF: 0 diltiazem HCl 300 mg Capsule,Extended Release 24 Hr 300 mg PO DAILY RF: 0 Excedrin Migraine 250-250-65 mg Tablet 2 tab PO PRN PRN (Reason: Migraine Headache) RF: 0 Discharge Orders: Discharge Order (Routine); Ordered 04/13/20 Ordered By: Urmila Pereyra Referrals: Krys Bailey DO [Primary Care Provider] - 1-3 days Discharge Diet: Advance as tolerated Discharge Activity: Resume usual activity Patient Instructions: Migraine Headache (ED) Coding Level of Care Code ED Technical Communication Teacher for Chg Fwd Exam Comprehensive
[2020-04-13] MEDS: diphenhydrAMINE 50 mg/mL SDV 1mL IVP (22:00)
[2020-04-13] MEDS: ketorolac 30 mg/mL INJ IVP (22:05)
[2020-04-13] MEDS: metoclopramide 5 mg/mL SDV 2 mL 10 MG IVP (22:16)
[2020-04-13 22:17] VITALS: BP 172/104; PULSE 90; RESP 18; O2SAT 99
== END 2020-04-13 23:01 | disposition home or self-care (01) ==
PROVIDERS: Emergency Provider Emergency Medicine; PCP Family Medicine
DX: G43.909 Migraine, unspecified, not intractable, without status migrainosus (principal); I10 Essential (primary) hypertension
CPT/HCPCS: 12345; 96374; 96375; 99283; J1200; J1885; J2765

== ENCOUNTER 2020-04-15 20:18 | Emergency (ER) | payer MEDICARE, MEDICAID, SELFPAY ==
[2020-04-15 20:23] VITALS: BP 203/91; PULSE 102; RESP 17; TEMP 36.9; O2SAT 98; BMI 36.7
--- NOTE | 2020-04-15 21:05 | W.ED.GENADLT ---
HPI - General Adult General: Chief complaint: General Medical Stated complaint: high bp Time Seen by Provider: 04/15/20 21:05 History of Present Illness: HPI narrative: Patient is a 54-year-old female comes to the ED with elevated blood pressure and headache. Patient says that she saw her PCP today and her blood pressure was elevated and doctor was putting her on an additional blood pressure medication. The pharmacy will have the prescription tomorrow morning. She states that after her appointment she started having more elevated blood pressures at home and then developed a headache. She describes the headache is retro-orbital to the left eye. She has nausea and photophobia. She currently rates it a 10 out of 10. Patient says before she came to the ED she did take a clonidine to help with her blood pressure. Denies any fever, chills, numbness tingling to extremities, changes in vision, weakness to extremities, vomiting, bladder or bowel symptoms. Associated symptoms: Reports headache(s) and nausea; Deny chest pain, dyspnea, rash, palpitations or vomiting Review of Systems Const: Denies: fever(s), chills or fatigue Eyes: Reports: photophobia; Denies: change in vision or eye discomfort ENMT: Denies: throat pain, odynophagia, nasal discharge or nasal congestion Card: Denies: chest pain, palpitations, edema, swelling of feet/ankles, dyspnea on exertion or orthopnea Resp: Denies: dyspnea, productive cough or non-productive cough GI: Reports: nausea; Denies: abdominal pain, vomiting, diarrhea, constipation or hematochezia : Denies: flank pain, dysuria or hematuria Musc: Denies: neck pain, back pain or extremity swelling Skin/Breast: Denies: rash or new lesions Neuro: Reports: headache(s); Denies: numbness in extremities or weakness in extremities PFS ED PFSH: Medical History Chronic low back pain Depression with anxiety Fear of insects (Unknown) Specifically tics Herpes genitalia Hot flashes HTN (hypertension) with goal to be determined Irritable bowel disease Long-term current use of opiate analgesic Lumbar radiculitis Major depressive disorder, recurrent, severe with psychotic symptoms Pain management contract signed Vaginal Discharge Surgical History H/O tubal ligation (~2008) History of augmentation of both breasts (~2012) SILICONE IMPLANTS Hx of abdominoplasty (~2009) Hx of section (~2008) Hx of decompressive lumbar laminectomy L5-S1 [facility] IN [place], [place]. Hx of hernia repair (~2012) umbilical Hx of hysterectomy (~2008) CHRISTINA-- ovaries spared. Family History Other Anesthesia complication CAD (coronary artery disease) Cancer Chronic kidney disease (CKD) Dementia Diabetes Hypertension Psychiatric illness Stroke Suicide Denies family history of Clotting disorder Hyperlipidemia Bleeding disorder Family history of premature coronary artery disease Lung disease Social History Smoking and tobacco status: never smoked Alcohol intake: current Alcohol intake frequency: holidays/special occasions only Alcohol type: wine History of recent travel: No Physical Exam Const: COMMON NORMALS: patient oriented x3 HENMT: COMMON NORMALS: normocephalic HEAD & SCALP: normocephalic MOUTH: Normal oral and palatal mucosa present THROAT: posterior oropharynx normal and uvula midline Eye: COMMON NORMALS: Equal, round and reactive pupils present, EOMs intact bilaterally, conjunctivae normal and normal visual escobar by confrontation CONJUNCTIVA: Yes conjunctivae normal PUPIL: Yes Equal, round and reactive pupils present Neck/C-Spine: COMMON NORMALS: supple GENERAL: Yes normal visual inspection Resp: COMMON NORMALS: normal respiratory effort, No retractions, No use of accessory muscles and clear to auscultation bilaterally AUSCULTATION: clear to auscultation bilaterally Cardio: COMMON NORMALS: regular rate, regular rhythm, S1 normal heart sound present, S2 normal heart sound present, No gallops present (Cardio), No clicks present (Cardio), No murmurs present (Cardio) and Peripheral pulses 2+ throughout RATE: regular rate RHYTHM: regular rhythm HEART SOUNDS: S1 normal heart sound present and S2 normal heart sound present PERIPHERAL PULSES: Peripheral pulses 2+ throughout GI: COMMON NORMALS: Normal to inspection, nondistended, normoactive bowel sounds present, Soft to palpation, non-tender and no masses PALPATION: Yes Soft to palpation : COMMON NORMALS: Yes no CVA tenderness BLADDER/KIDNEY EXAM: Yes no CVA tenderness Back/Pelvis: COMMON NORMALS: no CVA tenderness Extremity: COMMON NORMALS: normal to inspection and no pedal edema Neuro: COMMON NORMALS: patient oriented x3, CN's II-XII intact bilaterally, moves all extremities, no focal motor deficits and no sensory deficits noted COORDINATION/BALANCE: ognvxd-dl-drry test normal and pzsu-mh-mjmx test normal SPEECH: speech normal GAIT: Yes Normal gait present SENSORY EXAM: Yes extremities (intact) MOTOR EXAM: 5/5 motor strength present throughout COORDINATION: xoccoh-mn-ywfo test normal and fami-gj-jpxm test normal Skin: COMMON NORMALS: no rashes or lesions noted GENERAL SKIN EXAM: no rashes or lesions noted and dry skin Course Reevaluation(s): Reevaluation #1: Patient's blood pressure decreased and headache have improved after meds. Patient is ready to go home and rest. Vital Signs: Vital signs: Vital Signs Temperature 98.5 F 04/15/20 23:54 Pulse Rate 90 04/15/20 23:54 Respiratory Rate 18 04/15/20 23:54 Blood Pressure 150/82 04/15/20 23:54 Pulse Oximetry 97 04/15/20 23:54 MDM - General Adult MDM Narrative: Medical decision making narrative: Patient is a 54-year-old female comes to the ED with high blood pressure and headache. Patient was seen at PCP today and she had elevated blood pressure and prescribed an additional blood pressure medication for her that she will picker and packer at the pharmacy tomorrow morning. After appointment with PCP her blood pressure continued to elevate and she started developing a headache. Neurological exam was normal and there is no acute findings. Patient's migraine had nausea, photophobia and was retro-orbital to the left eye. EKG showed normal sinus rhythm with no ST segment elevation or depression seen. CT of the head showed no acute findings. Patient's blood pressure decreased and headache improved after IV fluids, Toradol, Decadron, Benadryl, Reglan and hydralazine. Patient's blood pressure was 203/91 when she arrived in the ED and after treatment for discharge her blood pressure was 150/82. Patient was told to follow-up with PCP in 7 to 10 days. She was also told to picker and packer her new blood pressure medication tomorrow and to take as prescribed. She can return to ED if she has any worsening symptoms. Patient understood and agreed with plan. Lab Data: Attestation: I reviewed the patient's lab results. Labs: Lab Results 04/15/20 04/15/20 04/15/20 Range/Units 21:37 21:37 21:45 WBC 7.6 (4.0-10.0) 10^3/ uL RBC 4.36 (4.1-5.3) 10^6/u L Hgb 12.6 (11.5-15.3) g/dL Hct 37.8 (37.0-47.0) % MCV 86.7 (81-99) fL MCH 28.9 (28.0-34.0) pg MCHC 33.3 (30.0-36.0) g/dL RDW 14.0 (12.1-15.1) % Plt Count 249 (130-400) 10^3/c mm MPV 10.9 H (7.4-10.4) fL Neut % (Auto) 58.8 % Lymph % (Auto) 32.6 % Coffey % (Auto) 6.3 % Eos % (Auto) 1.7 % Baso % (Auto) 0.3 % Neut # (Auto) 4.5 (1.8-7.7) 10^3/u L Lymph # (Auto) 2.5 (0.8-4.8) 10^3/u L Coffey # (Auto) 0.5 (0.2-0.9) 10^3/u L Eos # (Auto) 0.1 (0.0-0.8) 10^3/u L Baso # (Auto) 0.0 (0.0-0.1) 10^3/u L Nucleated RBC % (a uto) 0 % Nucleated RBCs # 0.0 /100WBC Sodium 136 (136-145) mmol/L Potassium 3.1 L (3.5-5.1) mmol/L Chloride 97 L (98-107) mmol/L Carbon Dioxide 28 (22-29) mmol/L Anion Gap 14.1 (5-19) BUN 9 (6-20) mg/dL Creatinine 0.9 (0.5-0.9) mg/dL GFR Calculation 65.5 L (90-130) mL/min Glucose 127 H (65-115) mg/dL Calculated Osmolal ity 280 L (285-295) mOsm/k g Calcium 9.1 (8.5-10.5) mg/dL Total Bilirubin 0.2 (0.15-1.2) mg/dL AST 12 (0-32) U/L ALT 12 (0-33) U/L Alkaline Phosphata se 94 (35-105) IU/L Total Protein 6.5 L (6.6-8.7) g/dL Albumin 3.8 (3.5-5.2) g/dL Globulin 2.7 (1.3-4.6) g/dL Urine Color Yellow (Yellow) Urine Appearance Hazy A (CLEAR) Urine pH 5 (5-7) Ur Specific Gravit y 1.015 (1.005-1.030) Urine Protein Neg (Negative) Urine Glucose (UA) Norm (Normal) Urine Ketones Negative (Negative) Urine Blood Neg (Negative) Urine Nitrate Negative (Negative) Urine Bilirubin Neg (NEGATIVE) Urine Urobilinogen Norm (Negative) mg/dL Ur Leukocyte Estelle ase Negative (Negative) Urine RBC 0-4 H (0-2) /hpf Urine WBC None (0-5) /hpf Ur Squamous Epith Cells 10-15 H (0-5) Ur Transition Epit h Cell None /hpf Amorphous Sediment Not Reportable Urine Bacteria Trace (NONE) Urine Mucus 1+ Imaging Data^: CT Head: Attestation: I personally reviewed and interpreted this imaging study as follows: Radiologist's impression: [place] [address] CT Scan Report Signed Patient: Anne Payne Unit #: [id number] : 1965 Age/Sex: 54 / F ADM Date: 04/15/20 Loc: ER Room/Bed: Attending Dr: Ordering Provider/Ordering MD: Alex Salazar Date of Service: 04/15/20 Procedure(s): CT head wo con* [id number] Accession Number(s): [id number] Report Number: [id number] PROCEDURE INFORMATION: Exam: CT Head Without Contrast Exam date and time: 04/15/2020 9:51 PM Age: 54 years old Clinical indication: Pain; Headache and other: High BP; Headache not specified; Additional info: Elevated BP with SILVERMAN TECHNIQUE: Imaging protocol: Computed tomography of the head without contrast. Radiation optimization: All CT scans at this facility use at least one of these dose optimization techniques: automated exposure control; mA and/or kV adjustment per patient size (includes targeted exams where dose is matched to clinical indication); or iterative reconstruction. COMPARISON: CT head wo con* [id number] 11/13/2019 7:17 PM RADIATION DOSE METRICS: Total DLP (mGy-cm): 842.24 FINDINGS: Brain: No acute intracranial hemorrhage or mass effect. No definite acute infarct by CT. Ventricles: Ventricle size is normal for age. Bones/joints: No definite acute skull fracture. Sinuses: Included paranasal sinuses are essentially clear. Mastoid air cells: No significant acute finding. CT/CT head wo con* [id number] IMPRESSION: 1. No acute intracranial hemorrhage or mass effect. 2. Other findings discussed above. Radiation Dose CTDIVOL = (mGy): DLP = 842.24 (mGy-cm) Dictated By: Colton Santillan MD Signed By: Colton Santillan MD Signed Date/Time: 04/15/202223 DD/ 22 EKG Data^: EKG 1: Attestation: I personally reviewed and interpreted this EKG as follows: EKG interpretation date: 04/15/20 Computer generated interpretation: Head CT 04/15/20 21:37 IMPRESSION: 1. No acute intracranial hemorrhage or mass effect. 2. Other findings discussed above. Radiation Dose CTDIVOL = (mGy): DLP = 842.24 (mGy-cm) Normal sinus rhythm. Ventricular rate 89 bpm, no ST segment elevation or depression seen. P waves present. Discharge Plan Discharge Patient Disposition: Home, Self-Care Clinical Impression: Hypertensive urgency Migraine Qualifiers: Migraine type: without aura Status migrainosus presence: without status migrainosus Intractability: not intractable Qualified Code(s): G43.009 - Migraine without aura, not intractable, without status migrainosus Condition: Stable Prescriptions: No Action diphenhydramine HCl 25 mg tablet 25 mg PO DAILY PRN (Reason: Headache) RF: 0 sumatriptan 5 mg/actuation spray,non-aerosol 20 mg INTRANASAL Q2H MDD 40mg in 24 hours PRN (Reason: migraine headache) Qty: 6 RF: 0 estradiol 2 mg tablet 2 mg PO DAILY Qty: 90 RF: 3 clonidine HCl 0.1 mg tablet 0.1 mg PO DAILY PRN (Reason: high bp) RF: 0 pregabalin 150 mg capsule 150 mg PO TID 30 Days Qty: 90 RF: 2 duloxetine [Cymbalta] 60 mg capsule,delayed release(DR/EC) 120 mg PO DAILY 90 Days Qty: 180 RF: 2 quetiapine [Seroquel] 50 mg tablet 50 mg PO .bedtime Qty: 30 RF: 3 cyproheptadine 4 mg tablet 4 mg PO .bedtime Qty: 30 RF: 3 losartan 50 mg tablet 50 mg PO DAILY Qty: 30 RF: 0 Aimovig Autoinjector 140 mg/mL auto-injector 140 mg SUBCUT .MONTHLY Qty: 1 RF: 6 acyclovir 400 mg tablet 400 mg PO DAILY RF: 0 acetaminophen [Tylenol Extra Strength] 500 mg Tablet 500 mg PO Q6H PRN (Reason: Pain) RF: 0 pantoprazole 40 mg tablet,delayed release (DR/EC) 40 mg PO DAILY RF: 0 furosemide 20 mg tablet 40 mg PO DAILY RF: 0 diltiazem HCl 300 mg Capsule,Extended Release 24 Hr 300 mg PO DAILY RF: 0 Excedrin Migraine 250-250-65 mg Tablet 2 tab PO PRN PRN (Reason: Migraine Headache) RF: 0 Discharge Orders: Discharge Order (Routine); Ordered 04/15/20 Ordered By: Alex Salazar Referrals: Krys Bailey DO [Primary Care Provider] - Discharge Diet: Regular Discharge Activity: Increase activity as tolerated Patient Instructions: Headache - Migraine (Adult), Hypertensive Crisis (ED) Activity Restrictions/Additional Instructions: Follow-up with medical provider as directed in 7-10 days. Continue taking all home medications as previously prescribed. Make sure to picker and packer new blood pressure medication tomorrow and take as prescribed. Return to the ER or your medical provider if condition worsens. Please read and understand discharge instructions. If any questions, please ask. Discharge Date/Time: 04/15/20 23:55 Coding Level of Care Code ED Production Line Worker for Melag Fwd Exam Comprehensive
[2020-04-15 21:15] VITALS: RESP 18
--- NOTE | 2020-04-15 21:37 | CTR_ITS ---
PROCEDURE INFORMATION: Exam: CT Head Without Contrast Exam date and time: 04/15/2020 9:51 PM Age: 54 years old Clinical indication: Pain; Headache and other: High BP; Headache not specified; Additional info: Elevated BP with SILVERMAN TECHNIQUE: Imaging protocol: Computed tomography of the head without contrast. Radiation optimization: All CT scans at this facility use at least one of these dose optimization techniques: automated exposure control; mA and/or kV adjustment per patient size (includes targeted exams where dose is matched to clinical indication); or iterative reconstruction. COMPARISON: CT head wo con* [id number] 11/13/2019 7:17 PM RADIATION DOSE METRICS: Total DLP (mGy-cm): 842.24 FINDINGS: Brain: No acute intracranial hemorrhage or mass effect. No definite acute infarct by CT. Ventricles: Ventricle size is normal for age. Bones/joints: No definite acute skull fracture. Sinuses: Included paranasal sinuses are essentially clear. Mastoid air cells: No significant acute finding. CT/CT head wo con* [id number] IMPRESSION: 1. No acute intracranial hemorrhage or mass effect. 2. Other findings discussed above. Radiation Dose CTDIVOL = (mGy): DLP = 842.24 (mGy-cm)
--- NOTE | 2020-04-15 21:45 | ECG_ITS ---
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 Measurements Intervals [place] Rate: 89 P: 49 VA: 155 QRS: 47 QRSD: 84 T: 63 QT: 336 QTc: 409 Interpretive Statements SINUS RHYTHM Compared to ECG 03/20/2019 18:22:07 No significant changes Electronically Signed On 04-17-2020 17:13:26 CDT by Magda Jones M.D. [id number]
[2020-04-15 21:47] LABS: Basophils % 0.3 %; Eosinophils # 0.1 10^3/uL (0.0-0.8); Eosinophils % 1.7 %; Hematocrit 37.8 % (37.0-47.0); Hemoglobin 12.6 g/dL (11.5-15.3); Lymphocytes # 2.5 10^3/uL (0.8-4.8); Lymphocytes % 32.6 %; Mean Corpuscular HGB Conc 33.3 g/dL (30.0-36.0); Mean Corpuscular Hemoglobin 28.9 pg (28.0-34.0); Mean Corpuscular Volume 86.7 fL (81-99); Mean Platelet Volume 10.9 fL (7.4-10.4); Monocytes # 0.5 10^3/uL (0.2-0.9); Monocytes % 6.3 %; Neutrophils # 4.5 10^3/uL (1.8-7.7); Neutrophils % 58.8 %; Nucleated Red Blood Cells % 0 %; Platelet Count 249 10^3/cmm (130-400); Red Blood Count 4.36 10^6/uL (4.1-5.3); White Blood Count 7.6 10^3/uL (4.0-10.0)
[2020-04-15 22:01] LABS: Alanine Aminotransferase 12 U/L (0-33); Albumin Level 3.8 g/dL (3.5-5.2); Alkaline Phosphatase 94 IU/L (35-105); Anion Gap 14.1 (5-19); Aspartate Amino Transferase 12 U/L (0-32); Blood Urea Nitrogen 9 mg/dL (6-20); Calcium 9.1 mg/dL (8.5-10.5); Carbon Dioxide 28 mmol/L (22-29); Chloride 97 mmol/L (98-107); Globulin 2.7 g/dL (1.3-4.6); Glomerular Filtration Rate 65.5 mL/min (90-130); Glucose 127 mg/dL (65-115); Osmolality Calculated 280 mOsm/kg (285-295); Potassium 3.1 mmol/L (3.5-5.1); Sodium 136 mmol/L (136-145); Total Bilirubin 0.2 mg/dL (0.15-1.2); Total Protein 6.5 g/dL (6.6-8.7)
[2020-04-15 22:15] VITALS: BP 200/120; PULSE 90; RESP 18; O2SAT 97
[2020-04-15 22:25] LABS: Add Urine Microscopic? YES; Bilirubin Urine Neg (NEGATIVE); Blood Urine Neg (Negative); Glucose Urine UA Norm (Normal); Ketones Urine Negative (Negative); Leukocyte Esterase Urine Negative (Negative); Nitrate Urine Negative (Negative); Protein Urine Neg (Negative); Specific Gravity, Urine 1.015 (1.005-1.030); Urine Appearance Hazy (CLEAR); Urine Color Yellow (Yellow); Urobilinogen Urine Norm (Negative); pH Urine 5 (5-7)
[2020-04-15 22:26] LABS: Add Urine Culture? No; Bacteria Urine TRACE; Mucus Urine 1+; RBC Urine 0-4 /hpf (0-2)
[2020-04-15] MEDS: potassium chloride ER 10 mEq Tablet 40 MEQ PO (22:55)
[2020-04-15] MEDS: diphenhydrAMINE 50 mg/mL SDV 1mL 25 MG IVP (22:55)
[2020-04-15] MEDS: ketorolac 30 mg/mL INJ IVP (22:55)
[2020-04-15] MEDS: sodium chloride 0.9% 500 ML IV (22:55)
[2020-04-15] MEDS: dexamethasone 10 mg/mL INJ IVP (22:56)
[2020-04-15] MEDS: metoclopramide 5 mg/mL SDV 2 mL 10 MG IVP (22:56)
[2020-04-15 23:00] VITALS: RESP 18
[2020-04-15] MEDS: hyDRALAzine 20 mg/mL INJ 1 mL 10 MG IVP (23:32)
[2020-04-15 23:47] VITALS: BP 150/82
[2020-04-15 23:54] VITALS: BP 150/82; PULSE 90; RESP 18; TEMP 36.9; O2SAT 97
== END 2020-04-15 23:55 | disposition home or self-care (01) ==
PROVIDERS: Emergency Provider Physician Assistant; PCP Family Medicine
DX: I16.0 Hypertensive urgency (principal); G43.009 Migraine without aura, not intractable, without status migrainosus; I10 Essential (primary) hypertension
CPT/HCPCS: 12345; 36415; 70450; 80053; 81001; 81003; 82044; 83036; 85025; 93005; 96360; 96361; 96374; 96375; 99283; 99284; J0360; J1100; J1200; J1885; J2765; J7040

== ENCOUNTER → 2020-04-24 12:36 | Outpatient (BNVA) | payer MEDICARE, MEDICAID, SELFPAY | PROVIDERS: PCP Family Medicine; Visit Provider Specialist | DX: R29.90 Unspecified symptoms and signs involving the nervous system (principal); G43.711 Chronic migraine without aura, intractable, with status migrainosus; F33.3 Major depressive disorder, recurrent, severe with psychotic symptoms; E66.9 Obesity, unspecified; S13.4XXA Sprain of ligaments of cervical spine, initial encounter; X58.XXXA Exposure to other specified factors, initial encounter | CPT/HCPCS: 99213 ==

== ENCOUNTER → 2020-05-14 11:21 | Outpatient (BNVA) | payer MEDICARE, MEDICAID, SELFPAY | PROVIDERS: PCP Family Medicine; Referring Provider Dermatology; Visit Provider Dermatology | DX: D22.9 Melanocytic nevi, unspecified (principal); L82.1 Other seborrheic keratosis; D23.9 Other benign neoplasm of skin, unspecified; L85.3 Xerosis cutis; Z85.820 Personal history of malignant melanoma of skin | CPT/HCPCS: 99203 ==

== ENCOUNTER → 2020-05-20 08:15 | Outpatient (BNVA) | payer MEDICARE, MEDICAID, SELFPAY | PROVIDERS: PCP Family Medicine; Visit Provider Nurse Practitioner Psychiatric/Mental Health | DX: F33.3 Major depressive disorder, recurrent, severe with psychotic symptoms (principal); F40.218 Other animal type phobia | CPT/HCPCS: 99214 ==

== ENCOUNTER 2020-06-07 08:10 | Emergency (ER) | payer MEDICARE, MEDICAID, SELFPAY ==
[2020-06-07 08:15] VITALS: BP 139/79; PULSE 83; RESP 17; TEMP 36.3; O2SAT 99; BMI 38.7
--- NOTE | 2020-06-07 08:18 | ECG_ITS ---
[facility] Test Date: 2020-06-07 Pat Name: Anne Payne Department: Room: Gender: Female Awning Spreader: : 1965 Requested By: Moy Van Order Number: [id number] Reza MD: Pito Ni M.D. Measurements Intervals [place] Rate: 72 P: 37 ID: [id number] QRS: 40 QRSD: 93 T: 50 QT: 400 QTc: 440 Interpretive Statements SINUS RHYTHM LOW QRS VOLTAGE IN PRECORDIAL LEADS [QRS DEFLECTION < 1.0 mV IN CHEST LEADS] Compared to ECG 04/15/2020 22:01:16 Low QRS voltage now present Electronically Signed On 06-07-2020 20:52:30 CDT by Piot Ni M.D. [id number]
--- NOTE | 2020-06-07 08:18 | XRR_ITS ---
PROCEDURE INFORMATION: Exam: XR Chest, 1 View Exam date and time: 06/07/2020 8:19 AM Age: 54 years old Clinical indication: Other: Passed out; Additional info: Dyspnea/cough TECHNIQUE: Imaging protocol: XR of the chest Views: 1 view. COMPARISON: CR XR chest 2V* [id number] 11/13/2019 6:42 PM FINDINGS: Lungs: Unremarkable. No consolidation. Pleural space: Unremarkable. No pleural effusion. No pneumothorax. Heart/Mediastinum: Unremarkable. No cardiomegaly. Bones/joints: Unremarkable. XR/XR chest 1V portable [id number] IMPRESSION: No acute findings.
[2020-06-07] MEDS: sodium chloride 0.9% 1,000 ML 999 ML IV (08:42)
--- NOTE | 2020-06-07 08:50 | ED_ITS ---
HPI - Syncope General: Chief Complaint: Syncope Stated Complaint: SYNCOPE, 9 TEETH PULLED ON TUESDAY Time Seen by Provider: 06/07/20 08:15 History of Present Illness: HPI narrative: 54-year-old female presents emergency room after syncopal episode. She recently had 9 teeth extractions. He is currently on oral antibiotics from the dentist is concerned about having a infection in the gumline. This morning she had gotten up was doing some things about the house got a little bit lightheaded and dizzy sat on the toilet continue to be dizzy and kind of slipped off the toilet she never really passed out there is no loss consciousness she did not strike her head. MD complaint: almost passed out Onset (ago): minute(s) Prodromal symptoms: lightheaded Witnessed: No Context: standing up Associated symptoms: Reports lightheadedness, nausea, vertigo and weakness; Deny abdominal pain, chest pain, fever(s), headache(s) or short of breath Treatments prior to arrival: none Review of Systems Const: Denies: fever(s), chills, body aches, change in appetite, fatigue or malaise ENMT: Denies: throat pain, ear or mastoid pain, nasal discharge or nasal congestion Card: Reports: lightheadedness; Denies: chest pain Resp: Denies: dyspnea, productive cough or non-productive cough GI: Reports: nausea; Denies: abdominal pain : Denies: flank pain, difficulty voiding, dysuria, urinary frequency or urinary urgency Skin/Breast: Denies: rash or pruritus Neuro: Reports: vertigo; Denies: headache(s) PFS ED PFSH: Medical History Chronic low back pain Depression with anxiety Fear of insects (Unknown) Specifically tics Herpes genitalia History of malignant melanoma Hot flashes HTN (hypertension) with goal to be determined Inappropriate sinus tachycardia Irritable bowel disease Long-term current use of opiate analgesic Lumbar radiculitis Major depressive disorder, recurrent, severe with psychotic symptoms Malignant hypertension Pain management contract signed Vaginal Discharge Surgical History H/O tubal ligation (~2008) History of augmentation of both breasts (~2012) SILICONE IMPLANTS Hx of abdominoplasty (~2009) Hx of section (~2008) Hx of decompressive lumbar laminectomy L5-S1 [facility] [place], [place]. Hx of hernia repair (~2012) umbilical Hx of hysterectomy (~2008) CHRISTINA-- ovaries spared. Family History Other Anesthesia complication CAD (coronary artery disease) Cancer Chronic kidney disease (CKD) Dementia Diabetes Hypertension Psychiatric illness Stroke Suicide Denies family history of Clotting disorder Hyperlipidemia Bleeding disorder Family history of premature coronary artery disease Lung disease Social History Smoking and tobacco status: never smoked Alcohol intake: current Alcohol intake frequency: holidays/special occasions only Alcohol type: wine History of recent travel: No Physical Exam Const: COMMON NORMALS: no acute distress GENERAL APPEARANCE: cooperative and comfortable ORIENTATION/CONSCIOUSNESS: Yes awake, Yes oriented to person, Yes oriented to place and Yes oriented to time HENMT: COMMON NORMALS: normocephalic, atraumatic, hearing grossly normal bilaterally, external ears normal, EAC's normal, TM's normal bilaterally, Normal nasal mucous membranes and turbinates present, moist oral mucous membranes and oropharynx normal HEAD & SCALP: normocephalic and atraumatic NOSE: Normal nasal mucous membranes and turbinates present EXTERNAL EAR: Yes external ears normal EXTERNAL AUDITORY CANAL: EAC's normal TYMPANIC MEMBRANE: TM's normal bilaterally OTHER: Gumline looks good no signs of infection or abscess Eye: COMMON NORMALS: Equal, round and reactive pupils present, EOMs intact bilaterally, conjunctivae normal and no scleral icterus CONJUNCTIVA: Yes conjunctivae normal PUPIL: Yes Equal, round and reactive pupils present Neck/C-Spine: COMMON NORMALS: no JVD Lymph: LYMPHATIC: no lymphadenopathy noted and no lymphedema noted Resp: COMMON NORMALS: normal respiratory effort, No retractions, No use of accessory muscles and clear to auscultation bilaterally AUSCULTATION: clear to auscultation bilaterally Cardio: COMMON NORMALS: no JVD, regular rate, regular rhythm and No murmurs present (Cardio) RATE: regular rate RHYTHM: regular rhythm GI: COMMON NORMALS: Soft to palpation and No hepatosplenomegaly present AUSCULTATION: Yes normoactive bowel sounds PALPATION: Yes Soft to palpation, No Tenderness to palpation present (GI), No Guarding due to palpation present (GI) and Yes No hepatosplenomegaly present Extremity: COMMON NORMALS: normal to inspection, capillary refill normal, no clubbing, cyanosis or edema, no calf tenderness and no pedal edema Neuro: SENSORIUM/ORIENTATION: Yes oriented to person, Yes oriented to place and Yes oriented to time Skin: COMMON NORMALS: no rashes or lesions noted GENERAL SKIN EXAM: no rashes or lesions noted Course Vital Signs: Vital signs: Vital Signs Temperature 97.4 F L 06/07/20 08:15 Pulse Rate 77 06/07/20 09:01 Respiratory Rate 17 06/07/20 08:15 Blood Pressure 94/68 06/07/20 09:01 Pulse Oximetry 99 06/07/20 08:15 MDM - Syncope MDM Narrative: Medical decision making narrative: Hold Eve recheck with primary care doctor within the week follow-up with dentist as scheduled continue to take her current antibiotics prescribed by the dentist. Lab Data: Labs: Lab Results 06/07/20 06/07/20 06/07/20 Range/Units 08:33 08:33 08:53 WBC 4.2 (4.0-10.0) 10^3/ uL RBC 3.86 L (4.1-5.3) 10^6/u L Hgb 11.4 L (11.5-15.3) g/dL Hct 34.7 L (37.0-47.0) % MCV 89.9 (81-99) fL MCH 29.5 (28.0-34.0) pg MCHC 32.9 (30.0-36.0) g/dL RDW 13.7 (12.1-15.1) % Plt Count 198 (130-400) 10^3/c mm MPV 12.0 H (7.4-10.4) fL Neut % (Auto) 50.4 % Lymph % (Auto) 37.7 % [place] % (Auto) 8.3 % Eos % (Auto) 2.6 % Baso % (Auto) 0.5 % Neut # (Auto) 2.13 (1.8-7.7) 10^3/u L Lymph # (Auto) 1.6 (0.8-4.8) 10^3/u L [place] # (Auto) 0.4 (0.2-0.9) 10^3/u L Eos # (Auto) 0.1 (0.0-0.8) 10^3/u L Baso # (Auto) 0.0 (0.0-0.1) 10^3/u L Nucleated RBC % (a uto) 0 % Nucleated RBCs # 0.0 /100WBC Sodium 138 (136-145) mmol/L Potassium 3.2 L (3.5-5.1) mmol/L Chloride 100 (98-107) mmol/L Carbon Dioxide 29 (22-29) mmol/L Anion Gap 12.2 (5-19) BUN 27 H (6-20) mg/dL Creatinine 1.2 H (0.5-0.9) mg/dL GFR Calculation 47.0 L (90-130) mL/min Glucose 125 H (65-115) mg/dL Calculated Osmolal ity 284 L (285-295) mOsm/k g Calcium 8.7 (8.5-10.5) mg/dL Magnesium 2.0 (1.7-2.3) mg/dL Total Bilirubin 0.2 (0.15-1.2) mg/dL AST 15 (0-32) U/L ALT 13 (0-33) U/L Alkaline Phosphata se 95 (35-105) IU/L Total Protein 6.2 L (6.6-8.7) g/dL Albumin 3.5 (3.5-5.2) g/dL Globulin 2.7 (1.3-4.6) g/dL Urine Color Straw (Yellow) Urine Appearance Clear (CLEAR) Urine pH 5 (5-7) Ur Specific Gravit y 1.015 (1.005-1.030) Urine Protein Neg (Negative) Urine Glucose (UA) Norm (Normal) Urine Ketones Negative (Negative) Urine Blood Neg (Negative) Urine Nitrate Negative (Negative) Urine Bilirubin Neg (NEGATIVE) Urine Urobilinogen Norm (Negative) mg/dL Ur Leukocyte Estelle ase Negative (Negative) Discharge Plan Discharge Patient Disposition: Home Clinical Impression: Near syncope, Hypokalemia, Medication side effects Condition: Stable Prescriptions: Held furosemide 40 mg tablet 40 mg PO DAILY Qty: 90 RF: 2 Hold Instructions: Resume on 06/18/20. No Action diphenhydramine HCl 25 mg tablet 25 mg PO DAILY PRN (Reason: Headache) RF: 0 sumatriptan 5 mg/actuation spray,non-aerosol 20 mg INTRANASAL Q2H MDD 40mg in 24 hours PRN (Reason: migraine headache) Qty: 6 RF: 0 duloxetine [Cymbalta] 60 mg capsule,delayed release(DR/EC) 60 mg PO .morning 90 Days Qty: 90 RF: 2 quetiapine [Seroquel] 50 mg tablet 50 mg PO .bedtime Qty: 30 RF: 3 estradiol 2 mg tablet 2 mg PO DAILY Qty: 90 RF: 3 clonidine HCl 0.1 mg tablet 0.1 mg PO DAILY PRN (Reason: high bp) RF: 0 pregabalin 150 mg capsule 150 mg PO TID 30 Days Qty: 90 RF: 2 cyproheptadine 4 mg tablet 4 mg PO .bedtime Qty: 30 RF: 3 valsartan-hydrochlorothiazide 160-12.5 mg tablet 1 tab PO BID Qty: 60 RF: 6 Aimovig Autoinjector 140 mg/mL auto-injector 140 mg SUBCUT .MONTHLY Qty: 1 RF: 6 pantoprazole 40 mg tablet,delayed release (DR/EC) 40 mg PO DAILY Qty: 90 RF: 1 carvedilol 6.25 mg tablet 6.25 mg PO BID Qty: 180 RF: 3 potassium chloride [Klor-Con 10] 10 mEq tablet extended release 10 meq PO DAILY Qty: 90 RF: 3 acetaminophen [Tylenol Extra Strength] 500 mg Tablet 500 mg PO Q6H PRN (Reason: Pain) RF: 0 acyclovir 400 mg tablet 400 mg PO DAILY PRNRF: 0 diltiazem HCl 300 mg Capsule,Extended Release 24 Hr 300 mg PO DAILY RF: 0 Excedrin Migraine 250-250-65 mg Tablet 2 tab PO PRN PRN (Reason: Migraine Headache) RF: 0 Discharge Orders: Discharge Order (Routine); Ordered 06/07/20 Ordered By: Moy Galvan Referrals: Krys Bailey DO [Primary Care Provider] - Discharge Diet: Usual diet Discharge Activity: Increase activity as tolerated Activity Restrictions/Additional Instructions: Follow-up with Dr. Bailey in 7 to 10 days sooner if you have further problems. Hold Lasix until you see Dr. Bailey back please Coding Level of Care Code ED Mannequin Molder for Chg Fwd Exam Comprehensive
[2020-06-07 08:53] LABS: Basophils % 0.5 %; Eosinophils # 0.1 10^3/uL (0.0-0.8); Eosinophils % 2.6 %; Hematocrit 34.7 % (37.0-47.0); Hemoglobin 11.4 g/dL (11.5-15.3); Lymphocytes # 1.6 10^3/uL (0.8-4.8); Lymphocytes % 37.7 %; Mean Corpuscular HGB Conc 32.9 g/dL (30.0-36.0); Mean Corpuscular Hemoglobin 29.5 pg (28.0-34.0); Mean Corpuscular Volume 89.9 fL (81-99); Monocytes # 0.4 10^3/uL (0.2-0.9); Monocytes % 8.3 %; Neutrophils # 2.13 10^3/uL (1.8-7.7); Neutrophils % 50.4 %; Nucleated Red Blood Cells % 0 %; Platelet Count 198 10^3/cmm (130-400); Red Blood Count 3.86 10^6/uL (4.1-5.3); Red Cell Distribution Width 13.7 % (12.1-15.1); White Blood Count 4.2 10^3/uL (4.0-10.0)
[2020-06-07 09:01] VITALS: BP 94/63; BP 94/68; BP 96/60; PULSE 77; PULSE 81
[2020-06-07 09:29] LABS: Alanine Aminotransferase 13 U/L (0-33); Albumin Level 3.5 g/dL (3.5-5.2); Alkaline Phosphatase 95 IU/L (35-105); Anion Gap 12.2 (5-19); Aspartate Amino Transferase 15 U/L (0-32); Blood Urea Nitrogen 27 mg/dL (6-20); Calcium 8.7 mg/dL (8.5-10.5); Carbon Dioxide 29 mmol/L (22-29); Chloride 100 mmol/L (98-107); Globulin 2.7 g/dL (1.3-4.6); Glucose 125 mg/dL (65-115); Osmolality Calculated 284 mOsm/kg (285-295); Potassium 3.2 mmol/L (3.5-5.1); Sodium 138 mmol/L (136-145); Total Bilirubin 0.2 mg/dL (0.15-1.2); Total Protein 6.2 g/dL (6.6-8.7)
[2020-06-07 09:47] LABS: Add Urine Microscopic? NO
[2020-06-07 09:49] LABS: Bilirubin Urine Neg (NEGATIVE); Blood Urine Neg (Negative); Glucose Urine UA Norm (Normal); Ketones Urine Negative (Negative); Leukocyte Esterase Urine Negative (Negative); Nitrate Urine Negative (Negative); Protein Urine Neg (Negative); Specific Gravity, Urine 1.015 (1.005-1.030); Urine Appearance Clear (CLEAR); Urine Color Straw (Yellow); Urobilinogen Urine Norm (Negative); pH Urine 5 (5-7)
[2020-06-07] MEDS: potassium chloride oral liq 20 mEq/15 mL UDC 40 MEQ PO (10:14)
[2020-06-07 10:52] VITALS: BP 100/70; PULSE 77; RESP 18; O2SAT 99
== END 2020-06-07 10:54 | disposition home or self-care (01) ==
PROVIDERS: Emergency Provider Family Medicine; PCP Family Medicine
DX: R55 Syncope and collapse (principal); E87.6 Hypokalemia; T50.905A Adverse effect of unspecified drugs, medicaments and biological substances, initial encounter; I10 Essential (primary) hypertension
CPT/HCPCS: 12345; 71045; 80053; 81003; 83735; 85025; 93005; 96360; 99283; J7030

== ENCOUNTER → 2020-06-11 13:23 | Outpatient (BNVA) | payer MEDICARE, MEDICAID, SELFPAY | PROVIDERS: PCP Family Medicine; Visit Provider Anesthesiology | DX: G89.29 Other chronic pain (principal); M54.42 Lumbago with sciatica, left side; M54.41 Lumbago with sciatica, right side; M54.16 Radiculopathy, lumbar region | CPT/HCPCS: 99213; 99214 ==

== ENCOUNTER → 2020-06-24 09:33 | Outpatient (BNVA) | payer MEDICARE, MEDICAID, SELFPAY | PROVIDERS: PCP Family Medicine; Visit Provider Nurse Practitioner Psychiatric/Mental Health | DX: F33.3 Major depressive disorder, recurrent, severe with psychotic symptoms (principal); F40.218 Other animal type phobia | CPT/HCPCS: 99214 ==

== ENCOUNTER 2020-06-27 09:50 | Outpatient (CLI) | payer MEDICARE, MEDICAID, SELFPAY ==
--- NOTE | 2020-06-27 10:00 | XR_ITS ---
WS: [id number] PROCEDURE: XR chest 2V* [id number] CLINICAL INFORMATION: RIGHT SIDED CHEST PAIN COMPARISON: June 07, 2020 FINDINGS: Heart: Normal cardiac silhouette. Lungs: Lungs are clear. No consolidation or pleural fluid. Bones: Normal visualized bony structures. No visualized rib fractures. Cystectomy clips. XR/XR chest 2V* [id number] IMPRESSION: Normal chest
== END 2020-06-27 09:51 | disposition home or self-care (01) ==
PROVIDERS: Family Provider Family Medicine; PCP Family Medicine; Visit Provider Surgery
DX: R07.9 Chest pain, unspecified (principal)
CPT/HCPCS: 71046

== ENCOUNTER → 2020-07-23 07:40 | Outpatient (BNVA) | payer MEDICARE, MEDICAID, SELFPAY | PROVIDERS: Family Provider Family Medicine; PCP Family Medicine; Visit Provider Nurse Practitioner Psychiatric/Mental Health | DX: F33.3 Major depressive disorder, recurrent, severe with psychotic symptoms (principal); F40.218 Other animal type phobia | CPT/HCPCS: 99214 ==

== ENCOUNTER → 2020-08-05 09:00 | Outpatient (BNVA) | payer MEDICARE, MEDICAID, SELFPAY | PROVIDERS: PCP Family Medicine; Referring Provider Dermatology; Visit Provider Orthopaedic Surgery | DX: M48.062 Spinal stenosis, lumbar region with neurogenic claudication (principal); M47.897 Other spondylosis, lumbosacral region | CPT/HCPCS: 72100 ==

== ENCOUNTER 2020-08-08 07:52 | Outpatient (CLI) | payer MEDICARE, MEDICAID, SELFPAY ==
--- NOTE | 2020-08-08 08:00 | USCV_ITS ---
Anne Payne Age: 55 Gender: F : 1965 Exam Date: 08/08/2020 08:16 Ordering Phys: Krys Bailey DO Technologist: Kristy Meehan Exam Location: [facility] [place] Indication: SYNCOPE Risk Factors: Unknown Previous Vascular Surgery: None Right Brachial BP: / Left Brachial BP: / Right Left Velocity (cm/s) Spectral Plaque Velocity (cm/s) Spectral Plaque Syst/Diast Broadening Syst/Diast Broadening 110.30/26.50 Prox CCA 90.10 / 22.30 71.70/ 25.40 Mid CCA 78.00 / 25.70 68.40/ 15.40 Distal CCA 66.00 / 23.20 68.60/ 19.70 Prox ICA 61.00 / 11.50 82.30/ 20.60 Mid ICA 75.00 / 30.50 73.80/ 20.60 Distal ICA 75.80 / 31.30 85.80 ECA 69.20 1.15 ICA/CCA 0.97 Antegrade Vertebral Antegrade 39.30/ 9.70 cm/s 45.30/ 14.00 cm/s Tri Subclavian Tri 44.50 104.6 0 FINDINGS Comparison: none available. No significant elevation of systolic or diastolic velocities. Waveforms are normal. No significant amount of calcified plaque or intimal thickening identified. CONCLUSIONS Normal carotid doppler ultrasound. Dr. Ebony Meléndez DO (Electronically Signed) Final Date: 08 August 2020 09:55 S
--- NOTE | 2020-08-08 08:45 | USCV_ITS ---
Anne Payne Age: 55 Gender: F : 1965 Exam Date: 08/08/2020 07:53 Ordering Phys: Krys Bailey DO Technologist: Kristy Meehan [place] [facility] [place]: syncope BP: 122 / 87 HR: 73 Rhythm: Sinus Technical Quality: Adequate MEASUREMENTS (Male / Female) Normal Values 2D ECHO LV Diastolic Diameter PLAX 3.4 cm 4.2 - 5.9 / 3.9 - 5.3 cm LV Systolic Diameter PLAX 2.4 cm LV Chamber Size 3.3 cm IVS Diastolic Thickness 1.0 cm 0.6 - 1.0 / 0.6 - 0.9 cm IVS Systolic Thickness 2.0 cm LVPW Diastolic Thickness 1.5 cm 0.6 - 1.0 / 0.6 - 0.9 cm LVPW Systolic Thickness 1.4 cm RV Chamber Size 2.9 cm LVOT Diameter 2.0 cm LV Ejection Fraction 2D Teich 60.6 % LV Ejection Fraction MOD 2C 34.6 % LV Ejection Fraction 2C AL 38.4 % LA Diameter 3.3 cm LA Width 2.3 cm LA Height 3.3 cm RA Width 2.9 cm RA Height 3.3 cm Aorta at Sinotubular Diameter 2.7 cm M-MODE LV Diastolic Diameter MM 4.4 cm 4.2 - 5.9 / 3.9 - 5.3 cm LV Systolic Diameter MM 2.6 cm LV Ejection Fraction MM Teich 71.5 % IVS Diastolic Thickness MM 1.2 cm 0.6 - 1.0 / 0.6 - 0.9 cm IVS Systolic Thickness MM 1.3 cm LVPW Diastolic Thickness MM 1.2 cm 0.6 - 1.0 / 0.6 - 0.9 cm LVPW Systolic Thickness MM 1.5 cm RV Diastolic Diameter MM 1.5 cm Aortic Annulus Diameter 3.2 cm LA Ao Ratio MM 1.2 DOPPLER AV Peak Velocity 115.7 cm/s LVOT Peak Velocity 64.0 cm/s AV Area Cont Eq vti 2.0 cm squared AV Area Cont Eq pk 1.8 cm squared MV Area PHT 5.0 cm squared Mitral E to A Ratio 1.3 MV E' Velocity 51.0 cm/s Mitral E to MV E' Ratio 8.9 Mitral E to LV E' Lateral Ratio 8.2 Mitral E to LV E' Septal Ratio 9.8 TR Peak Velocity 240.8 cm/s TR Peak Gradient 23.2 mmHg TR Mean Velocity 179.9 cm/s TR Mean Gradient 14.2 mmHg TR Velocity Time Integral 74.8 cm TV Peak E Velocity 70.0 cm/s PV Peak Velocity 69.0 cm/s RV Acceleration Time 0.2 s RV Ejection Time 0.3 s RV AcT/ET 0.6 FINDINGS Left Ventricle Normal left ventricular cavity size. Normal left ventricular systolic function. No regional wall motion abnormalities. Left ventricular ejection fraction is estimated at 60 %. Normal diastolic function. Right Ventricle The right ventricle is normal in size and function. RVSP could not be calculated due to incomplete tricuspid regurgitation velocity profile. Right Atrium The right atrium is normal in size. Left Atrium The left atrium is normal in size. Mitral Valve Thickened mitral valve. No mitral valve stenosis. Mild mitral valve regurgitation. Aortic Valve Mild aortic valve calcification. No aortic valve stenosis. Trace to mild aortic valve regurgitation. Tricuspid Valve Moderate tricuspid valve regurgitation. Pulmonic Valve Structurally normal pulmonic valve without significant stenosis. There is no pulmonic regurgitation. Pericardium Normal pericardium without effusion. Aorta Normal ascending aorta dimension. CONCLUSIONS 1-Normal left ventricular cavity size. Normal left ventricular systolic function. No regional wall motion abnormalities. Left ventricular ejection fraction is estimated at 60 %. Normal diastolic function. 2-Mild aortic valve calcification. No aortic valve stenosis. Trace to mild aortic valve regurgitation. 3-Moderate tricuspid valve regurgitation. 4-There is no pericardial effusion. 5-The right ventricle is normal in size and function. RVSP could not be calculated due to incomplete tricuspid regurgitation velocity profile. 6-Right atrial pressure is around 5 mm of mercury. 7-No significant change since the prior echocardiogram study of 08/28/2019. Harjit Simon MD (Electronically Signed) Final Date: 08 August 2020 15:34 S
== END 2020-08-08 07:53 | disposition home or self-care (01) ==
LOC: US 07:55
PROVIDERS: PCP Family Medicine; Visit Provider Family Medicine
DX: R55 Syncope and collapse (principal); I08.2 Rheumatic disorders of both aortic and tricuspid valves
CPT/HCPCS: 80048; 93306; 93880

== ENCOUNTER → 2020-08-14 14:21 | Outpatient (BNVA) | payer MEDICARE, MEDICAID, SELFPAY | PROVIDERS: PCP Family Medicine; Visit Provider Family Medicine | DX: R53.83 Other fatigue (principal) | CPT/HCPCS: 84443; 85025 ==

== ENCOUNTER → 2020-08-15 07:42 | Outpatient (BNVA) | payer MEDICARE, MEDICAID, SELFPAY | PROVIDERS: PCP Family Medicine; Visit Provider Family Medicine | DX: R53.83 Other fatigue (principal); D64.9 Anemia, unspecified | CPT/HCPCS: 82607 ==

== ENCOUNTER → 2020-08-19 08:26 | Outpatient (BNVA) | payer MEDICARE, MEDICAID, SELFPAY | PROVIDERS: PCP Family Medicine; Visit Provider Nurse Practitioner Psychiatric/Mental Health | DX: F33.3 Major depressive disorder, recurrent, severe with psychotic symptoms (principal); F40.218 Other animal type phobia | CPT/HCPCS: 99214 ==

== ENCOUNTER 2020-08-26 07:44 | Outpatient (CLI) | payer OTHER, MEDICARE, MEDICAID, SELFPAY ==
--- NOTE | 2020-08-26 07:59 | MR_ITS ---
WS: [id number] MRI LUMBAR SPINE WITH AND WITHOUT CONTRAST. HISTORY: Lumbar stenosis COMPARISON: 12/14/2016 TECHNIQUE: Sagittal and axial multisequence imaging is submitted. Sagittal and axial T1 fat sat seque nces post-ProHance 17 cc IV. Prior LEFT L5-S1 laminectomy defect. Normal posterior lumbar alignment. Disc space narrowing is moderate at L5-S1 with endplate osteochond rosis. No fractures or additional marrow edema. Vertebral body heights are well-maintained. The remaining discs other than L5-S1 are normal. Conus terminates normally at L1-2 disc level. L1-L2: Normal. L2-L3: Normal. L3-L4: Small amount of fluid in the facet joints bilaterally. No stenosis or disc herniations. L4-L5: No central stenosis. Small amount of fluid in the facet joints. No disc protrusions. L5-S1: Central vertebral body osteophyte encroaches upon the ventral thecal sac. This osteophyte exte nds just greater to the LEFT of midline and abuts but does not displace the LEFT S1 nerve root. Addit ional bilateral foraminal osteophytes. Bilateral foraminal osteophytes with encroachment upon the L5 nerve root but no displacement. There is mild leftward deviation of the thecal sac at the L5-S1 level which is probably due to adhesi ons and postsurgical changes. Deviation of the thecal sac extends towards the laminectomy defect. Postoperative changes are noted in the paravertebral soft tissues at the L5 level. No evidence for di scitis or osteomyelitis. MR/MR lumbar spine wo/w con [id number] IMPRESSION: 1. Prior LEFT L5-S1 laminectomy defect. Mild deformity of the thecal sac at th is level is probably due to adhesions and postoperative scarring with the theca l sac being deviated towards the laminectomy site. 2. Central and bilateral foraminal osteophyte disease at the L5-S1 level. Encr oachment upon the LEFT S1 and bilateral L5 nerve roots but no displacement or s evere stenosis.
== END 2020-08-26 07:45 | disposition home or self-care (01) ==
LOC: RADWPI 07:51
PROVIDERS: PCP Family Medicine; Visit Provider Orthopaedic Surgery
DX: M48.062 Spinal stenosis, lumbar region with neurogenic claudication (principal); M96.1 Postlaminectomy syndrome, not elsewhere classified; M25.78 Osteophyte, vertebrae
CPT/HCPCS: 72158; A9579

== ENCOUNTER 2020-09-21 18:41 | Emergency (ER) | payer MEDICARE, MEDICAID, SELFPAY ==
[2020-09-21 18:42] VITALS: BP 163/82; PULSE 86; RESP 18; TEMP 36.8; O2SAT 95; BMI 36.4
--- NOTE | 2020-09-21 18:50 | W.ED.HA ---
HPI - Headache General: Chief Complaint: Headache Stated Complaint: migraine Time Seen by Provider: 09/21/20 18:45 History of Present Illness: HPI Narrative: Patient is a 55-year-old female comes to the ED with a migraine. Patient has a past medical history of migraines. She says this migraine is just like all her past migraines. She symptoms started this morning and she has headache, nausea and photophobia. She took some prescribed sumatriptan nasal spray this morning and it did not help. She rates her migraine at a 8.5 out of 10. Denies any fever, chills, vision changes, weakness or numbness to extremities or face or any other neurological symptoms. Associated symptoms: Reports nausea; Deny chest pain, fever(s), rash or vomiting Review of Systems Const: Denies: fever(s), chills or fatigue Eyes: Reports: photophobia; Denies: change in vision or eye discomfort ENMT: Denies: throat pain, odynophagia, nasal discharge or nasal congestion Card: Denies: chest pain, palpitations, edema, swelling of feet/ankles, dyspnea on exertion or orthopnea Resp: Denies: dyspnea, productive cough or non-productive cough GI: Reports: nausea; Denies: abdominal pain, vomiting, diarrhea, constipation or hematochezia : Denies: flank pain, dysuria or hematuria Musc: Denies: neck pain, back pain or extremity swelling Skin/Breast: Denies: rash or new lesions Neuro: Reports: headache(s); Denies: numbness in extremities or weakness in extremities PFS ED PFSH: Medical History Depression with anxiety Fear of insects (Unknown) Specifically tics Herpes genitalia History of malignant melanoma Hot flashes HTN (hypertension) with goal to be determined Inappropriate sinus tachycardia Irritable bowel disease Long-term current use of opiate analgesic Lumbar radiculitis Major depressive disorder, recurrent, severe with psychotic symptoms Malignant hypertension Pain management contract signed Vaginal Discharge Surgical History H/O tubal ligation (~2008) History of augmentation of both breasts (~2012) SILICONE IMPLANTS Hx of abdominoplasty (~2009) Hx of section (~2008) Hx of decompressive lumbar laminectomy L5-S1 [facility] [place], [place]. Hx of hernia repair (~2012) umbilical Hx of hysterectomy (~2008) CHRISTINA-- ovaries spared. Family History Other Anesthesia complication CAD (coronary artery disease) Cancer Chronic kidney disease (CKD) Dementia Diabetes Hypertension Psychiatric illness Stroke Suicide Denies family history of Clotting disorder Hyperlipidemia Bleeding disorder Family history of premature coronary artery disease Lung disease Social History Smoking and tobacco status: never smoked Alcohol intake: current Alcohol intake frequency: holidays/special occasions only Alcohol type: wine History of recent travel: No Physical Exam Const: COMMON NORMALS: no acute distress, patient oriented x3 and alert GENERAL APPEARANCE: cooperative and comfortable HENMT: COMMON NORMALS: normocephalic HEAD & SCALP: normocephalic MOUTH: Normal oral and palatal mucosa present THROAT: posterior oropharynx normal and uvula midline Eye: COMMON NORMALS: Equal, round and reactive pupils present, EOMs intact bilaterally, conjunctivae normal and normal visual escobar by confrontation CONJUNCTIVA: Yes conjunctivae normal PUPIL: Yes Equal, round and reactive pupils present Neck/C-Spine: COMMON NORMALS: supple GENERAL: Yes normal visual inspection Resp: COMMON NORMALS: normal respiratory effort, No retractions, No use of accessory muscles and clear to auscultation bilaterally AUSCULTATION: clear to auscultation bilaterally Cardio: COMMON NORMALS: regular rate, regular rhythm, S1 normal heart sound present, S2 normal heart sound present, No gallops present (Cardio), No clicks present (Cardio), No murmurs present (Cardio) and Peripheral pulses 2+ throughout RATE: regular rate RHYTHM: regular rhythm HEART SOUNDS: S1 normal heart sound present and S2 normal heart sound present PERIPHERAL PULSES: Peripheral pulses 2+ throughout GI: COMMON NORMALS: Normal to inspection, nondistended, normoactive bowel sounds present, Soft to palpation, non-tender and no masses PALPATION: Yes Soft to palpation : COMMON NORMALS: Yes no CVA tenderness BLADDER/KIDNEY EXAM: Yes no CVA tenderness Back/Pelvis: COMMON NORMALS: no CVA tenderness Extremity: COMMON NORMALS: normal to inspection and no pedal edema Neuro: COMMON NORMALS: patient oriented x3, CN's II-XII intact bilaterally, moves all extremities, no focal motor deficits and no sensory deficits noted SENSORIUM/ORIENTATION: Yes alert SENSORY EXAM: Yes extremities (intact) MOTOR EXAM: 5/5 motor strength present throughout Skin: GENERAL SKIN EXAM: dry skin Course Reevaluation(s): Reevaluation #1: After patient received IV meds she says her migraine is down to a 3 out of 10. Patient is feeling much better and says she would like to go home and rest. Time: 20:01 Vital Signs: Vital signs: Vital Signs Temperature 98.2 F 09/21/20 18:42 Pulse Rate 74 09/21/20 19:48 Respiratory Rate 18 09/21/20 19:48 Blood Pressure 132/70 09/21/20 19:48 Pulse Oximetry 97 09/21/20 19:48 MDM - Headache MDM Narrative: Medical decision making narrative: Patient is a 55-year-old female comes to the ED with a migraine. She has a history of migraines and says that this migraine is just like all her past migraines. Denies any neurological symptoms. Neuro exam is normal. Vitals are stable. Patient was given migraine cocktail of IV fluids, Toradol, Decadron, Reglan and Benadryl. After meds patient's migraine greatly improved and she is ready to go home and rest. Patient was discharged and told to follow-up with PCP at her next scheduled appointment. Return to ED precautions given. Patient understood and agree with plan. Discharge Plan Discharge Patient Disposition: Home Clinical Impression: Migraine headache Qualifiers: Migraine type: without aura Status migrainosus presence: without status migrainosus Intractability: not intractable Qualified Code(s): G43.009 - Migraine without aura, not intractable, without status migrainosus Condition: Stable Prescriptions: No Action diphenhydramine HCl 25 mg tablet 25 mg PO DAILY PRN (Reason: Headache) RF: 0 sumatriptan 5 mg/actuation spray,non-aerosol 20 mg INTRANASAL Q2H MDD 40mg in 24 hours PRN (Reason: migraine headache) Qty: 6 RF: 0 duloxetine [Cymbalta] 60 mg capsule,delayed release(DR/EC) 60 mg PO .morning 90 Days Qty: 90 RF: 2 estradiol 2 mg tablet 2 mg PO DAILY Qty: 90 RF: 3 clonidine HCl 0.1 mg tablet 0.1 mg PO DAILY PRN (Reason: high bp) RF: 0 pregabalin 100 mg capsule 100 mg PO TID 30 Days Qty: 90 RF: 0 valsartan-hydrochlorothiazide 160-12.5 mg tablet 1 tab PO BID Qty: 60 RF: 6 cyproheptadine 4 mg tablet 4 mg PO .bedtime Qty: 30 RF: 3 quetiapine [Seroquel] 50 mg tablet 50 mg PO .bedtime Qty: 30 RF: 3 pantoprazole 40 mg tablet,delayed release (DR/EC) 40 mg PO DAILY Qty: 90 RF: 1 carvedilol 6.25 mg tablet 6.25 mg PO BID Qty: 180 RF: 3 potassium chloride [Klor-Con 10] 10 mEq tablet extended release 10 meq PO DAILY Qty: 90 RF: 3 acetaminophen [Tylenol Extra Strength] 500 mg Tablet 500 mg PO Q6H PRN (Reason: Pain) RF: 0 acyclovir 400 mg tablet 400 mg PO DAILY PRNRF: 0 furosemide 40 mg tablet 40 mg PO DAILY Qty: 90 RF: 2 Hold Instructions: Resume on 06/18/20. Excedrin Migraine 250-250-65 mg Tablet 2 tab PO PRN PRN (Reason: Migraine Headache) RF: 0 diltiazem HCl 300 mg capsule,extended release 24 hr 300 mg PO DAILY RF: 0 Discharge Orders: Discharge ED (Routine); Ordered 09/21/20 Ordered By: Alex Salazar Referrals: Krys Bailey DO [Primary Care Provider] - Discharge Diet: Regular Discharge Activity: Resume usual activity Patient Instructions: Migraine Headache (ED) Activity Restrictions/Additional Instructions: Follow-up with medical provider as directed. Continue taking all home medications as prescribed. Return to the ER or your medical provider if condition worsens. Please read and understand discharge instructions. If any questions, please ask. Coding Level of Care Code ED Yard Jacker for Suzette Fwrichy Exam Comprehensive
[2020-09-21] MEDS: sodium chloride 0.9% 500 ML 999 ML IV (19:25)
[2020-09-21] MEDS: metoclopramide 5 mg/mL SDV 2 mL 10 MG IVP (19:27)
[2020-09-21] MEDS: ketorolac 30 mg/mL INJ IVP (19:30)
[2020-09-21] MEDS: diphenhydrAMINE 50 mg/mL SDV 1mL 25 MG IVP (19:32)
[2020-09-21] MEDS: dexamethasone 4 mg/mL INJ 10 MG IVP (19:35)
[2020-09-21 19:48] VITALS: BP 132/70; PULSE 74; RESP 18; O2SAT 97
--- NOTE | 2020-09-21 19:49 | PC.NURSE ---
pt pain 12/17 from 05/19. 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
== END 2020-09-21 20:35 | disposition home or self-care (01) ==
PROVIDERS: Emergency Provider Physician Assistant; PCP Family Medicine
DX: G43.009 Migraine without aura, not intractable, without status migrainosus (principal); I10 Essential (primary) hypertension
CPT/HCPCS: 12345; 96361; 96374; 96375; 99282; 99283; J1100; J1200; J1885; J2765; J7040

== ENCOUNTER 2020-09-24 13:38 | Emergency (ER) | payer MEDICARE, MEDICAID, SELFPAY ==
[2020-09-24 13:41] VITALS: BP 149/80; PULSE 85; RESP 18; TEMP 36.3; O2SAT 97; BMI 37.7
[2020-09-24 14:19] VITALS: O2SAT 96
[2020-09-24] MEDS: promethazine 25 mg/mL SDV 1 mL IM (15:16)
[2020-09-24] MEDS: ketorolac 30 mg/mL INJ IVP (15:16)
[2020-09-24] MEDS: sodium chloride 0.9% 1,000 ML 999 ML IV (15:17)
[2020-09-24] MEDS: valproic acid inj 500 MG in sodium chloride 0.9% 50 ML 55 MG IV (15:17)
[2020-09-24 15:22] VITALS: BP 131/81; PULSE 80; O2SAT 96
--- NOTE | 2020-09-24 15:37 | W.ED.HA ---
HPI - Headache General: Chief Complaint: Headache Stated Complaint: migraine Time Seen by Provider: 09/24/20 14:10 History of Present Illness: HPI Narrative: 55-year-old female comes in complaining of headache. She has had migraines in the past as well states this feels like her typical migraine. It is on the left side causing photophobia and autophobia and nausea. She has tried several [id number] medications with no relief. MD elicited complaint: migraine Onset description: gradually Location: left, frontal and temporal Severity: severe Quality & Timing: throbbing Exacerbating factors: exertion, light and noise Relieving factors: nothing and dark room Context: occurred at rest Associated symptoms: Deny chest pain, confusion, cough, diaphoresis, eye pain, eye redness, fever(s), lightheadedness, loss of vision, malaise, nausea, neck stiffness, numbness, paresthesias, photophobia, pre-syncope, rash, seizures, short of breath, sound sensitivity, syncope, vomiting or weakness Treatments prior to arrival: acetaminophen and ibuprofen Review of Systems Const: Denies: fever(s), malaise or diaphoresis ENMT: Denies: throat pain, ear or mastoid pain, nasal discharge or nasal congestion Card: Denies: chest pain, lightheadedness, syncope or pre-syncope Resp: Denies: dyspnea, productive cough or non-productive cough GI: Denies: nausea or vomiting : Denies: flank pain, difficulty voiding, dysuria, urinary frequency or urinary urgency Skin/Breast: Denies: rash Neuro: Denies: confusion PFSH ED PFSH: Medical History (Updated 09/24/20 @ 16:20 by Moy Galvan DO) Depression with anxiety Fear of insects (Unknown) Specifically tics Herpes genitalia History of malignant melanoma Hot flashes HTN (hypertension) with goal to be determined Inappropriate sinus tachycardia Irritable bowel disease Long-term current use of opiate analgesic Lumbar radiculitis Major depressive disorder, recurrent, severe with psychotic symptoms Malignant hypertension Pain management contract signed Vaginal Discharge Surgical History H/O tubal ligation (~2008) History of augmentation of both breasts (~2012) SILICONE IMPLANTS Hx of abdominoplasty (~2009) Hx of section (~2008) Hx of decompressive lumbar laminectomy L5-S1 [facility] IN [place], [place]. Hx of hernia repair (~2012) umbilical Hx of hysterectomy (~2008) CHRISTINA-- ovaries spared. Family History Other Anesthesia complication CAD (coronary artery disease) Cancer Chronic kidney disease (CKD) Dementia Diabetes Hypertension Psychiatric illness Stroke Suicide Denies family history of Clotting disorder Hyperlipidemia Bleeding disorder Family history of premature coronary artery disease Lung disease Social History Smoking and tobacco status: never smoked Alcohol intake: current Alcohol intake frequency: holidays/special occasions only Alcohol type: wine History of recent travel: No Physical Exam Const: COMMON NORMALS: no acute distress GENERAL APPEARANCE: cooperative and comfortable ORIENTATION/CONSCIOUSNESS: Yes awake, Yes oriented to person, Yes oriented to place and Yes oriented to time HENMT: COMMON NORMALS: normocephalic, atraumatic and hearing grossly normal bilaterally HEAD & SCALP: normocephalic and atraumatic Eye: COMMON NORMALS: Equal, round and reactive pupils present, EOMs intact bilaterally, conjunctivae normal and no scleral icterus CONJUNCTIVA: Yes conjunctivae normal PUPIL: Yes Equal, round and reactive pupils present DIRECT OPHTHALMOSCOPY: No photophobia Neck/C-Spine: COMMON NORMALS: no JVD Resp: COMMON NORMALS: normal respiratory effort, No retractions, No use of accessory muscles and clear to auscultation bilaterally AUSCULTATION: clear to auscultation bilaterally Cardio: COMMON NORMALS: no JVD, regular rate, regular rhythm and No murmurs present (Cardio) RATE: regular rate RHYTHM: regular rhythm GI: COMMON NORMALS: Soft to palpation and No hepatosplenomegaly present AUSCULTATION: Yes normoactive bowel sounds PALPATION: Yes Soft to palpation, No Tenderness to palpation present (GI), No Guarding due to palpation present (GI) and Yes No hepatosplenomegaly present Extremity: COMMON NORMALS: normal to inspection, capillary refill normal, no clubbing, cyanosis or edema, no calf tenderness and no pedal edema Neuro: SENSORIUM/ORIENTATION: Yes oriented to person, Yes oriented to place and Yes oriented to time Skin: COMMON NORMALS: no rashes or lesions noted GENERAL SKIN EXAM: no rashes or lesions noted Course Vital Signs: Vital signs: Vital Signs Temperature 97.3 F L 09/24/20 13:41 Pulse Rate 80 09/24/20 15:22 Respiratory Rate 18 09/24/20 13:41 Blood Pressure 131/81 09/24/20 15:22 Pulse Oximetry 96 09/24/20 15:22 MDM - Headache MDM Narrative: Medical decision making narrative: improved after meds. d/c home with promethizine to use prn for headaches. Discharge Plan Discharge Patient Disposition: Home Clinical Impression: Migraine Condition: Stable Prescriptions: New promethazine 25 mg tablet 25 mg PO Q6H PRN (Reason: prn headache/migraine) Qty: 20 RF: 0 No Action diphenhydramine HCl 25 mg tablet 25 mg PO DAILY PRN (Reason: Headache) RF: 0 sumatriptan 5 mg/actuation spray,non-aerosol 20 mg INTRANASAL Q2H MDD 40mg in 24 hours PRN (Reason: migraine headache) Qty: 6 RF: 0 clonidine HCl 0.1 mg tablet 0.1 mg PO DAILY PRN (Reason: high bp) RF: 0 acetaminophen [Tylenol Extra Strength] 500 mg Tablet 1,000 mg PO PRN RF: 0 acyclovir 400 mg tablet 400 mg PO DAILY PRN (Reason: UNKNOWN) RF: 0 multivitamin Tablet 1 tab PO DAILY@08 RF: 0 furosemide 40 mg tablet 40 mg PO DAILY@08 RF: 0 carvedilol 6.25 mg tablet 6.25 mg PO BID@08,20 RF: 0 valsartan-hydrochlorothiazide 160-12.5 mg tablet 1 tab PO BID@, RF: 0 Klor-Con 10 10 mEq tablet extended release 10 meq PO DAILY@08 RF: 0 cyproheptadine 4 mg tablet 4 mg PO DAILY@20 RF: 0 pantoprazole 40 mg tablet,delayed release (DR/EC) 40 mg PO DAILY@08 RF: 0 estradiol 2 mg tablet 2 mg PO DAILY@08 RF: 0 Cymbalta 60 mg capsule,delayed release(DR/EC) 60 mg PO DAILY@08 RF: 0 pregabalin 100 mg capsule 100 mg PO TID@08,,20 RF: 0 Seroquel 50 mg tablet 50 mg PO DAILY@20 RF: 0 Excedrin Migraine 250-250-65 mg Tablet 2 tab PO PRN PRN (Reason: Migraine Headache) RF: 0 diltiazem HCl 300 mg capsule,extended release 24 hr 300 mg PO DAILY@08 RF: 0 Discharge Orders: Discharge ED (Routine); Ordered 09/24/20 Ordered By: Moy Galvan Referrals: Krys Bailey DO [Primary Care Provider] - Coding Level of Care Code ED Retail Assistant Store Manager for Chg Fwd Exam Comprehensive
[2020-09-24 16:10] VITALS: BP 136/91; PULSE 78; O2SAT 95
[2020-09-24 16:30] VITALS: BP 136/91; PULSE 82; O2SAT 96
== END 2020-09-24 16:30 | disposition home or self-care (01) ==
PROVIDERS: Emergency Provider Family Medicine; PCP Family Medicine
DX: G43.909 Migraine, unspecified, not intractable, without status migrainosus (principal); I10 Essential (primary) hypertension
CPT/HCPCS: 12345; 96365; 96372; 96375; 99283; J1885; J2550; J7030

== ENCOUNTER → 2020-09-25 08:44 | Outpatient (BNVA) | payer MEDICARE, MEDICAID, SELFPAY | PROVIDERS: PCP Family Medicine; Visit Provider Nurse Practitioner Psychiatric/Mental Health | DX: F33.3 Major depressive disorder, recurrent, severe with psychotic symptoms (principal); F40.218 Other animal type phobia | CPT/HCPCS: 99213 ==

== ENCOUNTER 2020-10-06 14:33 | Outpatient (CLI) | payer MEDICARE, MEDICAID, SELFPAY ==
--- NOTE | 2020-10-06 14:42 | MM_ITS ---
WS: [id number] Exam: [id number] Date/Time of Exam: 10/06/2020 2:46 PM Reason For Exam: SCREENING VIEWS: MLO and CC views both breasts. Breast implant displacement MLO and CC views also included Comparison made with prior exam of 09/20/2018. Findings: There was no sign of mass, architectural distortion or suspicious calcification in either breast. He terogeneously dense MM/[id number] Impression: BI-RADS: 2-Benign FOLLOW-UP: 1 Year Follow-up This mammogram was also analyzed by the Computer Aided Detection System R2 Imag e Police Surgeon.
== END 2020-10-06 14:34 | disposition home or self-care (01) ==
LOC: RADSHAW 14:39
PROVIDERS: PCP Family Medicine; Visit Provider Family Medicine
DX: Z12.31 Encounter for screening mammogram for malignant neoplasm of breast (principal)
CPT/HCPCS: 77067

== ENCOUNTER → 2020-10-14 08:46 | Outpatient (BNVA) | payer MEDICARE, MEDICAID, SELFPAY | PROVIDERS: PCP Family Medicine; Visit Provider Specialist | DX: G43.711 Chronic migraine without aura, intractable, with status migrainosus (principal); R55 Syncope and collapse; F07.81 Postconcussional syndrome; M54.16 Radiculopathy, lumbar region; R26.9 Unspecified abnormalities of gait and mobility | CPT/HCPCS: 99214 ==

== ENCOUNTER 2020-10-20 05:35 | Day surgery (SDC) | payer MEDICARE, MEDICAID, SELFPAY ==
[2020-10-16 10:58] VITALS: BMI 38.8
--- NOTE | 2020-10-16 11:30 | ANES.PREANE2 ---
Pre-Anesthetic Assessment Pre-Anesthetic Assessment: Height/Weight: Height 1.52 m Weight 90.265 kg Preop Diagnosis: Back pain Proposed Procedure: Operation Date: 10/20/20 07:00 Proposed Procedures p left revision L5 S1 decompression M48.062 [id number](Left) - Rell Gómez DO Familial anesthetic complications: PONV Social: Social History: No alcohol and No tobacco Exam: Pre-Anes Outpt Exam: alert, oriented x 3, clear to auscultation bilaterally and regular rate & rhythm Airway: Cervical ROM: WNL MP: 3 Dentition: False (uppers) CV/HEM: CV/HEM: HTN Comments: tachycardia Musc/skel: Comments: chronic pain Neuropsych: Neuropsych: CVA (2016) and Seizure Anesthetic Plan: ASA status: 3 Anesthesia: General and MAC Risk of > 500 ml blood loss (7ml/kg in children): No PFSH Anesthesia PFSH: Medical History (Updated 10/14/20 @ 11:01 by Lynn Powell MD) Depression with anxiety Fear of insects (Unknown) Specifically tics Herpes genitalia History of malignant melanoma Hot flashes HTN (hypertension) with goal to be determined Inappropriate sinus tachycardia Irritable bowel disease Long-term current use of opiate analgesic Lumbar radiculitis Major depressive disorder, recurrent, severe with psychotic symptoms Malignant hypertension Pain management contract signed Vaginal Discharge Surgical History H/O tubal ligation (~2008) History of augmentation of both breasts (~2012) SILICONE IMPLANTS Hx of abdominoplasty (~2009) Hx of section (~2008) Hx of decompressive lumbar laminectomy L5-S1 [facility] IN [place], [place]. Hx of hernia repair (~2012) umbilical Hx of hysterectomy (~2008) CHRISTINA-- ovaries spared. Family History Other Anesthesia complication CAD (coronary artery disease) Cancer Chronic kidney disease (CKD) Dementia Diabetes Hypertension Psychiatric illness Stroke Suicide Denies family history of Clotting disorder Hyperlipidemia Bleeding disorder Family history of premature coronary artery disease Lung disease Social History Smoking and tobacco status: never smoked Alcohol intake: current Alcohol intake frequency: holidays/special occasions only Alcohol type: wine History of recent travel: No Data Anesthesia Cardiac Studies: No Data to Display
[2020-10-20] VITALS (8 sets, daily range): BP systolic 114–163; BP diastolic 53–96; PULSE 71–100; RESP 15–20; TEMP 36.2–36.7; O2SAT 92–99
--- NOTE | 2020-10-20 | XR_ITS ---
WS: [id number] INTRAOPERATIVE TECHNIQUE: 3 Spot fluoroscopic images for intraoperative purposes. FLUOROSCOPY TIME: 18.5 seconds CLINICAL INFORMATION: left revision L5/S1 decompression COMPARISON: None. FINDINGS: Localization marker over the left L5-S1 interspace posteriorly. XR/XR lumbar spine 2-3V* [id number] IMPRESSION: Images obtained for intraoperative purposes.
--- NOTE | 2020-10-20 | SCC_ITS ---
Procedure Done: 1. Revision laminectomy with patial facetectomy L5/S1 18.5 seconds of fluoroscopic guidance, for a cumulative dose of 17.34 mGy, was provided to Dr. Gómez by the radiology department. C-arm images of the lumbar spine were saved for the patient's permanent record. [facility]
[2020-10-20] MEDS: sodium chloride 0.9% 1,000 ML 30 ML IV (06:24)
--- NOTE | 2020-10-20 06:46 | W.PM.OPSUD ---
Surgery/Procedure H&P Update DATE OF PROCEDURE: October 20, 2020 DATE H&P PERFORMED: 10/20/20 PREOP DIAGNOSIS: Lumbar stenosis PLANNED PROCEDURE: Operation Date: 10/20/20 07:00 Proposed Procedures p left revision L5 S1 decompression M48.062 [id number](Left) - Rell Gómez DO
--- NOTE | 2020-10-20 06:47 | P.HP_ITS ---
Providers/Chief Complaint Primary Care Provider: Krys Bailey DO Chief Complaint: left revision l5 s1 decompression History of Present Illness Anne Menezes Elmer is a 55 year old female Details: Onset: Unsure when the back pain started Duration: approx. a few months Characteristics: stabbing Severity: 4 on 1-10 scale Location: lower back Radiating symptoms: down both legs to feet Aggravating factors: standing Alleviating factors: laying down or reclining, getting off feet Neuro deficits: [X] denies numbness, weakness, incontinence of bowel/bladder, saddle anesthesia. Prior tx: Pain management, injections, prescription medications Review of Systems Eyes: Denies: photophobia ENMT: Denies: enlarged tonsils Psych: Denies: sleeping more All/Imm: Denies: acute wheezing Medications/Allergies Home Medications Medication Instructions Recorded Confirmed Last Taken Type diphenhydramine HCl 25 mg tablet 25 mg PO DAILY PRN tab 11/22/19 10/16/20 03/21/20 History clonidine HCl 0.1 mg tablet 0.1 mg PO DAILY PRN tab 11/26/19 10/16/20 04/15/20 History sumatriptan 5 mg/actuation nasal 20 mg INTRANASAL Q2H PRN #6 each 01/11/20 10/16/20 04/15/20 Rx spray MDD 40mg in 24 hours acetaminophen [Tylenol Extra 1,000 mg PO PRN 03/24/20 10/20/20 10/18/20 History Strength] jbghemr-sqawxijrqbsws-dcyzxunt 2 tab PO PRN PRN 03/31/20 10/16/20 09/24/20 08:00 History [Excedrin Migraine] acyclovir 400 mg tablet 400 mg PO DAILY PRN 05/19/20 10/16/20 Unknown History diltiazem HCl 300 mg capsule,24 300 mg PO DAILY@ cap 06/27/20 10/20/20 10/20/20 History hr,extended release carvedilol 6.25 mg PO BID@09/24/20 10/20/20 10/20/20 History estradiol 2 mg PO DAILY@09/24/20 10/20/20 10/19/20 History furosemide 40 mg PO DAILY@09/24/20 10/20/20 09/24/20 History multivitamin 1 tab PO DAILY@08 09/24/20 10/20/20 10/19/20 History pantoprazole 40 mg PO DAILY@08 09/24/20 10/20/20 10/19/20 History potassium chloride [Klor-Con 10] 10 meq PO DAILY@08 09/24/20 10/16/20 09/24/20 History promethazine 25 mg PO Q6H PRN #20 tab 09/24/20 10/16/20 Unknown Rx valsartan-hydrochlorothiazide 1 tab PO BID@,09/24/20 10/20/20 10/20/20 History cyproheptadine 4 mg tablet 4 mg PO .bedtime #30 tab 09/25/20 10/20/20 10/18/20 Rx duloxetine 60 mg capsule,delayed 60 mg PO .morning #30 cap 09/25/20 10/20/20 10/19/20 Rx release pregabalin 100 mg capsule 100 mg PO TID@,, #90 cap 09/25/20 10/20/20 10/19/20 Rx quetiapine 50 mg tablet 50 mg PO .9 pm #30 tab 09/25/20 10/20/20 10/19/20 Rx erenumab-aooe 140 mg/mL 140 mg SUBCUT .monthly #1 ml 10/14/20 10/20/20 10/16/20 Rx subcutaneous auto-injector Allergies Allergy/AdvReac Type Severity Reaction Status Date / Time risperidone [From Risperdal] Allergy Unconscious Verified 10/14/20 08:52 Sulfa (Sulfonamide Allergy ALGY-Hives Verified 10/14/20 08:52 Antibiotics) tramadol Allergy ADR-Migrain Verified 10/14/20 08:52 e PFSH Acute PFSH: Medical History (Updated 10/14/20 @ 11:01 by Lynn Powell MD) Depression with anxiety Fear of insects (Unknown) Specifically tics Herpes genitalia History of malignant melanoma Hot flashes HTN (hypertension) with goal to be determined Inappropriate sinus tachycardia Irritable bowel disease Long-term current use of opiate analgesic Lumbar radiculitis Major depressive disorder, recurrent, severe with psychotic symptoms Malignant hypertension Pain management contract signed Vaginal Discharge Surgical History H/O tubal ligation (~2008) History of augmentation of both breasts (~2012) SILICONE IMPLANTS Hx of abdominoplasty (~2009) Hx of section (~2008) Hx of decompressive lumbar laminectomy L5-S1 [facility] IN [place], [place]. Hx of hernia repair (~2012) umbilical Hx of hysterectomy (~2008) CHRISTINA-- ovaries spared. Family History Other Anesthesia complication CAD (coronary artery disease) Cancer Chronic kidney disease (CKD) Dementia Diabetes Hypertension Psychiatric illness Stroke Suicide Denies family history of Clotting disorder Hyperlipidemia Bleeding disorder Family history of premature coronary artery disease Lung disease Social History Smoking and tobacco status: never smoked Alcohol intake: current Alcohol intake frequency: holidays/special occasions only Alcohol type: wine History of recent travel: No Vitals/I&O/Wt Last Vital Signs Temp 97.1 F L 10/20/20 06:07 Pulse 87 10/20/20 06:07 Resp 18 10/20/20 06:07 BP 114/96 10/20/20 06:07 Pulse Ox 99 10/20/20 06:07 Physical Exam Narrative: EXAM NARRATIVE: CONSTITUTIONAL: The patient is a normal appearing [] in no apparent distress. GENERAL: Patient in no acute distress. CARDIAC: Regular rate and rhythm. CHEST: Normal inspiratory effort, normal respiratory rate. ABDOMEN: Soft and nontender. SKIN: Clear, warm and intact. NEURO?PSYCH: The patient is alert and oriented to person, place and time. Sensorv /SILT Motor StrengthShoulder abduction C5 5/5Wrist extension C6 5/5Elbow extension C7 5/5Hand Drug Safety Data Management Specialist C8 5/5Finger abduction T15/5 Radial/ Ulnar/ Median n intact LowerSensory (SILT)Motor StrengthHin flexion L2/3Ant/inner thigh 5/5Hip adduction L2/3 5/5Knee extension L4 Lat thigh, 5/5Toe dorsiflexion L5 5/5Ankle dorsiflexion L5/ P72Mzddvty flexion S1 5/5 DTRBleeps 2+Triceps 2+Brachioradialis 2+Patellar 2+Achilles 2+ MUSCULOSKELETAL: [] UPPEREXTREMITIES: The patient had full active ROM in fingers, wrist, elbow, and shoulder. The patient demonstrated ability to fully flex/extend/abduct /adduct fingers, make ok sign, cross 2nd/3rd digits, extend 1st digit fully.. Radial pulse 2+, CR<2 seconds. LOWER EXTREMITIES: Pt has full, active ROM of toes, ankle, knee, and hip. Dorsalis pedis/posterior tibialis pulses 2+, CR<2 seconds. SPINE: Skin warm, dry, intact. A&P Assessment and plan (1) Lumbar stenosis with neurogenic claudication: Surgery today revision L5/S1 decompression Status: Acute Attestations Medical Necessity Statement*: radicular pain failed conservative therapy Coding Level of Care Code Acute Die Repair for [facility] Diagnoses Lumbar stenosis with neurogenic claudication M48.062
--- NOTE | 2020-10-20 06:48 | P.ANESUD_ITS ---
Pre-Anesthetic Update Pre-Anesthetic Assessment: Date of Surgery/Procedure: 10/20/20 Preop Fatoumata gnosis: Lumbar stenosis Proposed Procedure: Operation Date: 10/20/20 07:00 Proposed Procedures p left revision L5 S1 decompression M48.062 [id number](Left) - Rell Gómez, DO Any changes to Pre-Anesthetic Assessment?: No Last Intake: Intake Last Liquid Date 10/19/20 Last Liquid Time 20:00 Last Solid Date 10/19/20 Last Solid Time 20:00 Vitals: Temperature 97.1 F L 10/20/20 06:07 Temperature Source Temporal Artery S can 10/20/20 06:07 Pulse Rate 87 10/20/20 06:07 Respiratory Rate 18 10/20/20 06:07 Blood Pressure 114/96 10/20/20 06:07 Blood Pressure Glenna n 102 10/20/20 06:07 Pulse Oximetry 99 10/20/20 06:07 Oxygen Delivery Me thod 10/20/20 06:07 Exam: Pre-Anes Outpt Exam: alert, oriented x 3, clear to auscultation bilaterally and regular rate & rhythm Cardiac Studies: No Data to Display
--- NOTE | 2020-10-20 07:51 | SUR.OPER ---
daughter updated of surgical status
--- NOTE | 2020-10-20 08:35 | PM.OP ---
Operative Report Date of procedure: October 20, 2020 Pre-op Diagnosis: Lumbar stenosis Post-op diagnosis: same Procedure Done: 1. Revision laminectomy with patial facetectomy L5/S1 Surgeon: Rell Gómez Anesthesia: General Estimated blood loss (mL): 5 Condition: stable Disposition: PACU Procedure: 1. Revision laminectomy with patial facetectomy L5/S1 Patient is brought to the operative suite after undergoing anesthesia was placed in the prone position. All areas impingement were well-padded. Patient was prepped and draped normal sterile fashion. Skin incision made over the L5-S1 level using previous skin incision. This was also confirmed using C-arm guidance. Dilators were passed to the retractor was placed and docked onto the L5 lamina and the L5-S1 facet. Scar tissue was taken down from the lamina and the facet joint. Previous laminectomy site was identified. High-speed bur was used take down more of the lamina. More of the medial aspect of facet was taken down. Kerrison rongeur was used to take down the medial aspect of facet joint as well as the remaining lamina. The S1 nerve was directly visualized disc was directly visualize did not see any place where there is any impingement on the nerve. Pelvic the nerve is complete decompressed at this point. Wounds were irrigated and wound was closed with Vicryl and Monocryl suture sterile dressings applied patient transferred to the PACU in stable condition.
--- NOTE | 2020-10-20 15:28 | ANE.PACU2 ---
Inpatient post-anesthesia follow up: Airway intact: Yes Vital signs: Temperature 98.1 F Pulse Rate 71 Respiratory Rate 18 Blood Pressure 148/62 Pulse Oximetry 96 Oxygen Delivery Me thod Room Air Oxygen Flow Rate 8 Fraction of Inspir ed Oxygen Hydration adequate: Yes Nausea and vomiting: No Pain level: 3 Mental status: Baseline
== END 2020-10-20 09:42 | disposition home or self-care (01) ==
PROVIDERS: PCP Family Medicine; Visit Provider Orthopaedic Surgery
PROC: (CPT 63005; principal; 2020-10-20 07:00)
DX: M48.062 Spinal stenosis, lumbar region with neurogenic claudication (principal); Z79.891 Long term (current) use of opiate analgesic; F41.8 Other specified anxiety disorders; I10 Essential (primary) hypertension; Z86.73 Personal history of transient ischemic attack (TIA), and cerebral infarction without residual deficits
CPT/HCPCS: 63042; 12345; 72100; 76000; J0131; J0690; J1100; J2405; J2704; J2710; J3010; J3490; J7030

== ENCOUNTER 2020-11-07 12:45 | Outpatient (CLI) | payer MEDICARE, MEDICAID, SELFPAY ==
--- NOTE | 2020-11-07 13:00 | MR_ITS ---
WS: [id number] MRI HEAD WITHOUT CONTRAST TECHNIQUE: Sagittal T1, T2 axial, T2 axial FLAIR, axial and coronal T1 images, axial susceptibility w eighted imaging, axial diffusion weighted images, and coronal T2 images were obtained. CLINICAL INFORMATION: G43.711 - Chronic migraine without aura, intractable, with status migrainosus COMPARISON: CT April 15, 2020, MRI 5 16,017 FINDINGS: No evidence of restricted diffusion to suggest acute ischemia. Ventricular system and basal cisterns are patent. Small foci of T2 hyperintensity in the frontal subcortical white matter nonspecific in a patient this age but can be seen with migraine headaches. This is slightly progressed since 2017. Mil d parenchymal volume loss. Normal posterior fossa. Normal vascular flow voids at the skull base. No e xtra-axial fluid collections. No evidence of mass or mass effect. Paranasal sinuses and mastoid air cells are well aerated. No hemosiderin on the susceptibly weighted images. Normal optic chiasm and pituitary infundibulum. Mild symmetric atrophy involving the temporal lobes and hippocampal formations. No signal abnormalities in the mesial temporal lobes. MR/MR head wo con* [id number] IMPRESSION: 1. No evidence of restricted diffusion to suggest acute is ischemia. 2. A few tiny foci of T2 hyperintensity in the subcortical white matter nonspe cific but can be seen with migraine headaches. Mild parenchymal volume loss. 3. No extra-axial fluid collections. No evidence of mass or mass effect. 4. No other significant findings.
== END 2020-11-07 12:46 | disposition home or self-care (01) ==
LOC: RADSHAW 12:45
PROVIDERS: PCP Family Medicine; Visit Provider Specialist
DX: G43.711 Chronic migraine without aura, intractable, with status migrainosus (principal)
CPT/HCPCS: 70551; 87635

== ENCOUNTER → 2020-11-20 08:16 | Outpatient (BNVA) | payer MEDICARE, MEDICAID, SELFPAY | PROVIDERS: PCP Family Medicine; Visit Provider Nurse Practitioner Psychiatric/Mental Health | DX: F33.3 Major depressive disorder, recurrent, severe with psychotic symptoms (principal); F40.218 Other animal type phobia | CPT/HCPCS: 99214 ==

== ENCOUNTER 2021-01-04 18:11 | Emergency (ER) | payer MEDICARE, MEDICAID, SELFPAY ==
[2021-01-04 18:23] VITALS: BP 110/67; PULSE 81; RESP 18; TEMP 37.1; O2SAT 98; BMI 34.7
[2021-01-04] MEDS: ketorolac 30 mg/mL INJ IVP (19:44)
[2021-01-04] MEDS: diphenhydrAMINE 50 mg/mL SDV 1mL IVP (19:46)
[2021-01-04 20:09] VITALS: BP 129/76; PULSE 80; RESP 17; O2SAT 98
[2021-01-04 20:29] LABS: ABG PH Result 7.46 (7.35-7.45); Arterial Blood Gas Hematocrit 37.5 % (37-47); Base Excess ABG 4.6 mmol/L (-2.0-2.0); Blood Gas Allen Test Pos; Blood Gas Sample Site Radial, right; Blood Gas Sample Type Arterial; HCO3 ABG 28.9 mmol/L (22-26); Ionized Calcium Level - ABG 1.2 mmol/L (1.1-1.4); Methemoglobin 0.6 % (0.4-1.5); Oxygen Saturation ABG 95.6; PO2 ABG 84.2 mmHg (80.0-100.0); Potassium Level - ABG 3.3 mmol/L (3.5-5.0); Total Hemoglobin 12.2 g/dL (12-16)
[2021-01-04] MEDS: dexamethasone 10 mg/mL INJ IVP (20:32)
[2021-01-04] MEDS: magnesium sulfate premix 2 GM/50 ML PIGGYBACK IV (20:32)
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
[2021-01-04 21:50] VITALS: BP 112/49; PULSE 70; RESP 16; O2SAT 96
== END 2021-01-04 21:51 | disposition home or self-care (01) ==
PROVIDERS: Emergency Provider Family Medicine; PCP Family Medicine
DX: G43.019 Migraine without aura, intractable, without status migrainosus (principal); I10 Essential (primary) hypertension
CPT/HCPCS: 36600; 80051; 82330; 82805; 96365; 96375; 99284; J1100; J1200; J1885; J3475

== ENCOUNTER → 2021-01-07 07:48 | Outpatient (BNVA) | payer MEDICARE, MEDICAID, SELFPAY | PROVIDERS: PCP Family Medicine; Visit Provider Nurse Practitioner Psychiatric/Mental Health | DX: F33.3 Major depressive disorder, recurrent, severe with psychotic symptoms (principal); F40.218 Other animal type phobia | CPT/HCPCS: 99214 ==

== ENCOUNTER 2021-01-10 16:12 | Emergency (ER) | payer MEDICARE, MEDICAID, SELFPAY ==
[2021-01-10 16:15] VITALS: BP 109/73; PULSE 85; RESP 18; TEMP 36.6; O2SAT 97; BMI 34.0
[2021-01-10 17:02] VITALS: O2SAT 96
--- NOTE | 2021-01-10 17:02 | W.ED.ABDPA2 ---
HPI - Abdominal Pain General: Chief Complaint: Abdominal Pain Stated Complaint: N/V/D Time Seen by Provider: 01/10/21 17:00 History of Present Illness: HPI narrative: Patient's had vomiting and nonstop diarrhea since about 2 or 3:00 this morning where woke her up out of her sleep. Patient ate 1 of those mandrin fruit cups that are like in the plastic containers in the juice with the plastic peel-off and it had been since November. In feel it tasted badly. She has had mostly nonstop diarrhea since then and had 2 episodes of vomiting she denies any recent antibiotics as the stool smells like normal diarrhea she denies any fevers. He said at one point she was on the toilet having vomiting and diarrhea at the same time and that she nearly passed out. She is feels really weak and dehydrated she has some mild lower abdominal cramping and spasms as she describes it but denies any significant pain or feeling that she has an acute abdomen like an appendicitis that she feels she has some form of food poisoning She has had her gallbladder out. He said the nausea medication EMS gave in route did help Review of Systems General: Reports: 10 or more systems reviewed and unremarkable except in HPI and below Narrative: General: denies fatigue, fever or chills HEENT: denies ear pain, denies nasal congestion, denies vision changes, denies sore throat Neck: denies masses or pain Resp: denies cough, denies shortness of breath, denies pleuritic pain Cardio: denies chest pain, denies edema GI: crampy abdominal pain, 2 times of vomiting however she did tried to take water and that made her vomit as well she had too numerous times to count her diarrhea, denies black/tarry or bloody stools : denies hematuria, denies dysuria Neuro: denies headache, denies dizziness, denies motor or sensory changes Musculoskeletal: denies pain, denies swelling Skin: denies rashes Psych: denies SI or HI Endocrine: denies thyroid symptoms, denies lymphadenopathy all over ROS reviewed and patient denies PFSH ED PFSH: Medical History (Updated 01/10/21 @ 17:07 by Catie Webber DO) Depression with anxiety Fear of insects (Unknown) Specifically tics Herpes genitalia History of malignant melanoma Hot flashes HTN (hypertension) with goal to be determined Inappropriate sinus tachycardia Irritable bowel disease Long-term current use of opiate analgesic Lumbar radiculitis Major depressive disorder, recurrent, severe with psychotic symptoms Malignant hypertension Pain management contract signed Vaginal Discharge Surgical History H/O tubal ligation (~2008) History of augmentation of both breasts (~2012) SILICONE IMPLANTS Hx of abdominoplasty (~2009) Hx of section (~2008) Hx of decompressive lumbar laminectomy L5-S1 [place]. Hx of hernia repair (~2012) umbilical Hx of hysterectomy (~2008) CHRISTINA-- ovaries spared. Family History Other Anesthesia complication CAD (coronary artery disease) Cancer Chronic kidney disease (CKD) Dementia Diabetes Hypertension Psychiatric illness Stroke Suicide Denies family history of Clotting disorder Hyperlipidemia Bleeding disorder Family history of premature coronary artery disease Lung disease Social History Smoking and tobacco status: never smoked Alcohol intake: current Alcohol intake frequency: holidays/special occasions only Alcohol type: wine History of recent travel: No Physical Exam Narrative: EXAM NARRATIVE: General: a/o/3, no distress Head: atraumatic HEENT: normal eyes, normal conjunctiva, normal hearing, normal external nose, normal mouth, mucous membranes dry Neck: FROM, trachea midline Chest: normal expansion, no gross deformities Resp: normal speech, no retractions, no accessory muscle use, CTA bilaterally Cardio: regular rate and rhythm and no murmur, no peripheral edema, normal peripheral pulses GI: soft, flat mild lower abdominal tenderness bilaterally. More on the left side than the right tender, no guarding normal BS no rebound or guarding : deferred Musculoskeletal: FROM, no pain or gross deformities Neuro: a/o appropriate for age, no gross motor or sensory deficitys, CN II-XII grossly intact, normal coordination, normal speech Skin: no rashes Psych: cooperative, normal mood and effect Course Vital Signs: Vital signs: Vital Signs Temperature 97.8 F 01/10/21 16:15 Pulse Rate 86 01/10/21 17:17 Respiratory Rate 18 01/10/21 16:15 Blood Pressure 107/67 04/03/21 17:17 Pulse Oximetry 96 01/10/21 17:02 MDM - Abdominal Pain MDM Narrative: Medical decision making narrative: Denies an IV in place we will give her a liter of fluids and check some labs her WBC was not elevated she does not appear to have an acute abdomen discussed with her about a CT scan she feels at this time if maybe we could just try to hydrate her up and she could keep some ice chips down she would be fine to go home she denies right lower quadrant pain specifically she says it just feels more crampy and sore from all of the physical activity Patient had some diarrhea here in the emergency department denies any significant pain Discussed with patient Imodium however she is afraid to take any of that which I agree with really if she has some type of viral infection she needs to expel patient agrees she is smiling and laughing Fletcher give her a liter fluids and then discharge her Differential Diagnosis: Differential diagnosis abdominal pain: Likely abdominal pain and gastroenteritis Medical Records: Attestation: I reviewed the patient's medical records. Lab Data: Attestation: I reviewed the patient's lab results. Labs: Lab Results 01/10/21 01/10/21 01/10/21 Range/Units 16:00 16:00 17:25 WBC 9.6 (4.0-10.0) 10^3/ uL RBC 5.35 H (4.1-5.3) 10^6/u L Hgb 15.7 H (11.5-15.3) g/dL Hct 46.9 (37.0-47.0) % MCV 87.7 (81-99) fL MCH 29.3 (28.0-34.0) pg MCHC 33.5 (30.0-36.0) g/dL RDW 13.3 (12.1-15.1) % Plt Count 314 (130-400) 10^3/c mm MPV 12.0 H (7.4-10.4) fL Neut % (Auto) 78.8 % Lymph % (Auto) 14.6 % [place] % (Auto) 5.3 % Eos % (Auto) 0.7 % Baso % (Auto) 0.3 % Neut # (Auto) 7.52 (1.8-7.7) 10^3/u L Lymph # (Auto) 1.4 (0.8-4.8) 10^3/u L [place] # (Auto) 0.5 (0.2-0.9) 10^3/u L Eos # (Auto) 0.1 (0.0-0.8) 10^3/u L Baso # (Auto) 0.0 (0.0-0.1) 10^3/u L Nucleated RBC % (a uto) 0 % Nucleated RBCs # 0.0 /100WBC Sodium 138 (136-145) mmol/L Potassium 3.6 (3.5-5.1) mmol/L Chloride 100 (98-107) mmol/L Carbon Dioxide 27 (22-29) mmol/L Anion Gap 14.6 (5-19) BUN 18 (6-20) mg/dL Calculated Osmolal ity 289 (285-295) mOsm/k g Calcium 9.2 (8.5-10.5) mg/dL Total Bilirubin 0.4 (0.15-1.2) mg/dL AST 9 (0-32) U/L ALT 11 (0-33) U/L Alkaline Phosphata se 94 (35-105) IU/L Albumin 4.2 (3.5-5.2) g/dL Globulin 2.2 (1.3-4.6) g/dL Lipase 30 (13-60) U/L Amorphous Sediment Not Reportable Discharge Plan Discharge Clinical Impression: Gastroenteritis Condition: Stable Prescriptions: New Zofran 4 mg tablet 4 mg PO Q6H Qty: 10 RF: 0 No Action diphenhydramine HCl 25 mg tablet 25 mg PO DAILY PRN (Reason: Headache) RF: 0 sumatriptan 5 mg/actuation spray,non-aerosol 20 mg INTRANASAL Q2H MDD 40mg in 24 hours PRN (Reason: migraine headache) Qty: 6 RF: 0 Aimovig Autoinjector 140 mg/mL auto-injector 140 mg SUBCUT .monthly Qty: 1 RF: 2 Seroquel 50 mg tablet 50 mg PO .9 pm Qty: 30 RF: 6 cyproheptadine 4 mg tablet 4 mg PO .bedtime Qty: 30 RF: 6 clonidine HCl 0.1 mg tablet 0.1 mg PO DAILY PRN (Reason: high bp) RF: 0 Cymbalta 60 mg capsule,delayed release(DR/EC) 60 mg PO .morning Qty: 30 RF: 6 linaclotide 72 mcg capsule 72 mcg PO QAM Qty: 30 RF: 0 pantoprazole 40 mg tablet,delayed release (DR/EC) 40 mg PO DAILY@08 Qty: 90 RF: 0 losartan-hydrochlorothiazide 100-25 mg tablet 1 tab PO DAILY Qty: 90 RF: 3 pregabalin 100 mg capsule 100 mg PO TID@08,13,20 Qty: 90 RF: 0 acetaminophen [Tylenol Extra Strength] 500 mg Tablet 1,000 mg PO PRN RF: 0 acyclovir 400 mg tablet 400 mg PO TID PRN (Reason: herpes outbreak) Qty: 21 RF: 2 multivitamin Tablet 1 tab PO DAILY@08 RF: 0 furosemide 40 mg tablet 40 mg PO DAILY@08 RF: 0 carvedilol 6.25 mg tablet 6.25 mg PO BID@08,20 RF: 0 potassium chloride [Klor-Con 10] 10 mEq tablet extended release 10 meq PO DAILY@08 RF: 0 estradiol 2 mg tablet 2 mg PO DAILY@08 RF: 0 promethazine 25 mg tablet 25 mg PO Q6H PRN (Reason: prn headache/migraine) Qty: 20 RF: 0 Excedrin Migraine 250-250-65 mg Tablet 2 tab PO PRN PRN (Reason: Migraine Headache) RF: 0 diltiazem HCl 300 mg capsule,extended release 24 hr 300 mg PO DAILY@08 RF: 0 Discharge Orders: Discharge ED (Routine); Ordered 01/10/21 Ordered By: Catie Webber Referrals: Krys Bailey DO [Primary Care Provider] - Discharge Diet: Advance as tolerated and Clear Liquid Discharge Activity: Limit activity as instructed Patient Instructions: Gastroenteritis (ED), Acute Nausea and Vomiting (ED) Activity Restrictions/Additional Instructions: Use the nausea medication as needed Clear liquids and advance her diet as tolerated you can try some Imodium [id number] for diarrhea keep hydrated with Sprite and/or Gatorade sometimes soothe your stomach a little bit better than just start water return if you have abdominal pain or fevers especially in her right lower quadrant Return of bloody stools Thank you for choosing [facility] for your healthcare needs today. Please realize this is an emergency room and that we are providing you with a medical screening exam and this may not be complete and all inclusive of all the testing and or work up that you may need to determine your ailment or severity of your illness. It is very important that you follow up as instructed or that you return to the Emergency Department should you have concerns or if your condition changes or worsens in any way. Coding Level of Care Code ED Guidance Director for 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
[2021-01-10 17:09] LABS: Basophils % 0.3 %; Eosinophils # 0.1 10^3/uL (0.0-0.8); Eosinophils % 0.7 %; Hematocrit 46.9 % (37.0-47.0); Hemoglobin 15.7 g/dL (11.5-15.3); Lymphocytes # 1.4 10^3/uL (0.8-4.8); Lymphocytes % 14.6 %; Mean Corpuscular HGB Conc 33.5 g/dL (30.0-36.0); Mean Corpuscular Hemoglobin 29.3 pg (28.0-34.0); Mean Corpuscular Volume 87.7 fL (81-99); Monocytes # 0.5 10^3/uL (0.2-0.9); Monocytes % 5.3 %; Neutrophils # 7.52 10^3/uL (1.8-7.7); Neutrophils % 78.8 %; Nucleated Red Blood Cells % 0 %; Platelet Count 314 10^3/cmm (130-400); Red Blood Count 5.35 10^6/uL (4.1-5.3); Red Cell Distribution Width 13.3 % (12.1-15.1); White Blood Count 9.6 10^3/uL (4.0-10.0)
[2021-01-10] MEDS: sodium chloride 0.9% 1,000 ML 999 ML IV (17:15)
[2021-01-10] MEDS: dicyclomine 20 mg Tablet PO (17:15)
[2021-01-10] MEDS: promethazine 25 mg Tablet PO (17:15)
[2021-01-10 17:17] VITALS: BP 107/67; PULSE 86
[2021-01-10 17:25] LABS: Alanine Aminotransferase 11 U/L (0-33); Albumin Level 4.2 g/dL (3.5-5.2); Alkaline Phosphatase 94 IU/L (35-105); Anion Gap 14.6 (5-19); Aspartate Amino Transferase 9 U/L (0-32); Blood Urea Nitrogen 18 mg/dL (6-20); Calcium 9.2 mg/dL (8.5-10.5); Carbon Dioxide 27 mmol/L (22-29); Chloride 100 mmol/L (98-107); Globulin 2.2 g/dL (1.3-4.6); Glomerular Filtration Rate 57.8 mL/min (90-130); Glucose 124 mg/dL (65-115); Lipase 30 U/L (13-60); Osmolality Calculated 289 mOsm/kg (285-295); Potassium 3.6 mmol/L (3.5-5.1); Sodium 138 mmol/L (136-145); Total Bilirubin 0.4 mg/dL (0.15-1.2); Total Protein 6.4 g/dL (6.6-8.7)
[2021-01-10 17:36] LABS: Bilirubin Urine 1+ (Negative); Blood Urine Neg (Negative); Glucose Urine UA Norm (Normal); Ketones Urine 1+ (Negative); Leukocyte Esterase Urine Negative (Negative); Nitrate Urine Negative (Negative); Protein Urine Neg (Negative); Specific Gravity, Urine 1.025 (1.005-1.030); Urine Appearance Clear (CLEAR); Urine Color Yellow (Yellow); Urobilinogen Urine Norm (Negative); pH Urine 5 (5-7)
[2021-01-10 17:38] LABS: Add Urine Culture? No; Bacteria Urine TRACE /hpf; WBC Urine 0-4 /hpf (0-5)
[2021-01-10 18:10] VITALS: BP 107/93; PULSE 84; O2SAT 94
== END 2021-01-10 18:10 | disposition home or self-care (01) ==
PROVIDERS: Emergency Provider Emergency Medicine; PCP Family Medicine
DX: K52.9 Noninfective gastroenteritis and colitis, unspecified (principal); I10 Essential (primary) hypertension
CPT/HCPCS: 80053; 81001; 83690; 85025; 96360; 99283; J7030; Q0169

== ENCOUNTER 2021-01-12 11:54 | Inpatient (IN) | payer MEDICARE, MEDICAID, SELFPAY ==
[2021-01-12] VITALS (8 sets, daily range): BP systolic 106–138; BP diastolic 66–94; PULSE 87–105; RESP 16–18; TEMP 36.5–36.8; O2SAT 94–96; BMI 33.6
--- NOTE | 2021-01-12 12:45 | CT_ITS ---
WS: [id number] CT ABDOMEN AND PELVIS WITH CONTRAST HISTORY: abdominal pain, N/V/D TECHNIQUE: Imaging performed of the abdomen and pelvis with IV contrast. Single phase imaging of the abdomen. Coronal and sagittal reformats are submitted. All CT scans at [facility] use at least one of these dose optimization techniques: automated exposure control; mA and/or kV adjustment per patient size (includes targeted exams where dose is matched to clinical indication); or iterativ e reconstruction. IV CONTRAST: Omnipaque 300; 95 mL IV. Oral contrast: No DLP: 1817.95 mGy.cm COMPARISON: 07/10/2019 Lower thorax: Bilateral interstitial thickening at the lung bases. Heart is normal size. Small hiatal hernia. Bilateral breast implants. Liver/biliary system: Normal size liver. Low-attenuation lesions along the RIGHT lobe of the liver we re similar to prior study from 03/20/2019. No bile duct dilatation. Gallbladder: Status post cholecystectomy. Pancreas: Normal size pancreas. Pancreatic duct is top normal at 2 mm. Spleen: Normal. Adrenal glands: Normal. Right kidney: Normal. Left kidney: 6 mm cyst cortex upper pole. No obstruction or solid mass. Aorta: Mild atherosclerosis with no aneurysm. Lymphadenopathy: None. Free fluid: Small amount of free fluid in the pelvis. Small amount of free fluid extends along the RI GHT paracolic gutter. GI tract: There is marked dilatation of the small bowel and stomach with fluid. Small bowel loops hammad sure up to 3.6 cm in diameter. There is a transition point in the RIGHT lower quadrant which is proba simone secondary to an adhesion. The appendix is normal. Mildly collapsed colon. No ischemic changes. Abdominal wall: Unremarkable abdominal wall. No hernia. Pelvis: Small amount of free fluid in the pelvis. Prior hysterectomy. Urinary bladder is normal. Bones: Bilateral osteonecrosis involving the femoral heads. CT/CT abdomen pelvis w con* [id number] IMPRESSION: 1. High grade distal small bowel obstruction. Transition point RIGHT lower stephon drant is probably due to an adhesion. 2. Normal appendix. 3. Prior cholecystectomy and hysterectomy. 4. Small amount of ascites. 5. Bilateral femoral head osteonecrosis.
--- NOTE | 2021-01-12 12:46 | W.ED.NAVMDI ---
HPI - Nausea/Vomiting/Diarrhea General: Chief complaint: Nausea/Vomiting/Diarrhea Stated complaint: N/V/D Time Seen by Provider: 01/12/21 12:32 Source: patient Mode of arrival: ambulatory Limitations: no limitations History of Present Illness: HPI Narrative: Patient is a 55-year-old female who presents to ED today for reevaluation for abdominal pain, nausea, vomiting, diarrhea. Patient was seen in our facility 2 days ago. Please refer to providers note for that particular visit. Patient tells me symptoms began 3-4 days ago. She tells me she has having countless episodes of vomiting and diarrhea daily. When asked to specifically quantify she tells me she is having 40 episodes of diarrhea daily and approximately 15 episodes of vomiting. She denies hematochezia, melanotic stools, or hematemesis. She has not been running fevers although feels sweaty. She is complaining of diffuse abdominal cramping. Patient was discharged 2 days ago with a prescription for nausea but states this has not been helping. She denies recent antibiotic use. Denies sick contacts. Denies recent hospitalization. MD elicited complaint: nausea, vomiting, diarrhea and abdominal pain Onset (ago): day(s) Description of diarrhea: watery Associated nausea: Yes Associated abdominal pain: Yes Location of pain: Diffuse Pain consistency: constant Quality: cramping Associated symtoms: Reports nausea; Denies change in vision, chest pain, dysuria, fatigue, headache(s), malaise, palpitations or syncope Review of Systems Const: Denies: fever(s), chills, body aches, fatigue or malaise Eyes: Denies: change in vision or blurry vision Card: Denies: chest pain, palpitations, irregular heart rhythm, lightheadedness, syncope or dyspnea on exertion Resp: Denies: dyspnea, productive cough or pain on inspiration GI: Reports: abdominal pain, nausea, vomiting, diarrhea and GI cramping; Denies: hematemesis, heartburn, pain on defecation, hematochezia, melena or white/light colored stool : Denies: flank pain or dysuria Musc: Denies: neck pain, back pain or joint pain Skin/Breast: Denies: rash Neuro: Denies: headache(s) PFSH ED PFSH: Medical History (Updated 01/12/21 @ 15:50 by BRI Staples) Depression with anxiety Fear of insects (Unknown) Specifically tics Herpes genitalia History of malignant melanoma Hot flashes HTN (hypertension) with goal to be determined Inappropriate sinus tachycardia Irritable bowel disease Long-term current use of opiate analgesic Lumbar radiculitis Major depressive disorder, recurrent, severe with psychotic symptoms Malignant hypertension Pain management contract signed Vaginal Discharge Surgical History H/O tubal ligation (~2008) History of augmentation of both breasts (~2012) SILICONE IMPLANTS Hx of abdominoplasty (~2009) Hx of section (~2008) Hx of decompressive lumbar laminectomy L5-S1 [place]. Hx of hernia repair (~2012) umbilical Hx of hysterectomy (~2008) CHRISTINA-- ovaries spared. Family History Other Anesthesia complication CAD (coronary artery disease) Cancer Chronic kidney disease (CKD) Dementia Diabetes Hypertension Psychiatric illness Stroke Suicide Denies family history of Clotting disorder Hyperlipidemia Bleeding disorder Family history of premature coronary artery disease Lung disease Social History Smoking and tobacco status: never smoked Alcohol intake: current Alcohol intake frequency: holidays/special occasions only Alcohol type: wine History of recent travel: No Physical Exam Const: COMMON NORMALS: no acute distress, patient oriented x3, no limitations and alert GENERAL APPEARANCE: cooperative NUTRITIONAL APPEARANCE: obese ORIENTATION/CONSCIOUSNESS: Yes awake, Yes oriented to person, Yes oriented to place and Yes oriented to time HENMT: COMMON NORMALS: normocephalic and atraumatic HEAD & SCALP: normocephalic and atraumatic Resp: COMMON NORMALS: normal respiratory effort and clear to auscultation bilaterally AUSCULTATION: clear to auscultation bilaterally Cardio: COMMON NORMALS: regular rhythm RATE: tachycardic (mild) RHYTHM: regular rhythm GI: COMMON NORMALS: no masses INSPECTION: Yes scar (previous open hernia repair/c section/lap vinay) AUSCULTATION: Yes Hypoactive bowel sounds present (upper abdomen; normal bowel sounds to lower quadrants ) PALPATION: Yes Tenderness to palpation present (GI) (diffusely) and Yes Guarding due to palpation present (GI) : COMMON NORMALS: Yes no CVA tenderness BLADDER/KIDNEY EXAM: Yes no CVA tenderness Back/Pelvis: COMMON NORMALS: no CVA tenderness Extremity: COMMON NORMALS: normal to inspection Neuro: COMMON NORMALS: patient oriented x3 SENSORIUM/ORIENTATION: Yes alert, Yes oriented to person, Yes oriented to place and Yes oriented to time Skin: COMMON NORMALS: no rashes or lesions noted GENERAL SKIN EXAM: no rashes or lesions noted Course Consultations: Consultation #1: Dr. Lambert-will consult on patient while in hospital Consultation #2: Dr. Cosby-accepts admit Vital Signs: Vital signs: Vital Signs Temperature 97.7 F 01/12/21 12:27 Pulse Rate 87 01/12/21 13:30 Respiratory Rate 16 01/12/21 13:30 Blood Pressure 106/74 01/12/21 13:30 Pulse Oximetry 94 01/12/21 13:30 MDM - Nausea/Vomiting/Diarrhea MDM Narrative: Medical decision making narrative: Patient here with a distal small bowel obstruction most likely from adhesions. Her previous abdominal surgeries include an open ventral hernia repair, complete hysterectomy, laparoscopic cholecystectomy. CBC is nonconcerning. CMP showing a potassium of 2.8. I will start her on 20meq potassium and add a magnesium. She minor renal insufficiency most likely from volume loss. I have spoken to Dr. Lambert who agrees with NG tube and will consult on patient while in the hospital. I spoke to hospitalist Dr. Cosby who will admit patient. I have spoken to Dr. Trammell who will write admit orders on patient. Lab Data: Labs: Lab Results 01/12/21 01/12/21 01/12/21 Range/Units 13:50 13:50 13:50 WBC 5.8 (4.0-10.0) 10^3/ uL RBC 5.26 (4.1-5.3) 10^6/u L Hgb 15.4 H (11.5-15.3) g/dL Hct 46.3 (37.0-47.0) % MCV 88.0 (81-99) fL MCH 29.3 (28.0-34.0) pg MCHC 33.3 (30.0-36.0) g/dL RDW 13.4 (12.1-15.1) % Plt Count 337 (130-400) 10^3/c mm MPV 11.4 H (7.4-10.4) fL Neut % (Auto) 64.2 % Lymph % (Auto) 22.4 % [place] % (Auto) 11.7 % Eos % (Auto) 0.7 % Baso % (Auto) 0.7 % Neut # (Auto) 3.69 (1.8-7.7) 10^3/u L Lymph # (Auto) 1.3 (0.8-4.8) 10^3/u L [place] # (Auto) 0.7 (0.2-0.9) 10^3/u L Eos # (Auto) 0.0 (0.0-0.8) 10^3/u L Baso # (Auto) 0.0 (0.0-0.1) 10^3/u L Nucleated RBC % (a uto) 0 % Nucleated RBCs # 0.0 /100WBC Sodium 134 L (136-145) mmol/L Potassium 2.8 L* (3.5-5.1) mmol/L Chloride 94 L (98-107) mmol/L Carbon Dioxide 26 (22-29) mmol/L Anion Gap 16.8 (5-19) BUN 23 H (6-20) mg/dL Creatinine 1.3 H (0.5-0.9) mg/dL GFR Calculation 42.7 L (90-130) mL/min Glucose 130 H (65-115) mg/dL Calculated Osmolal ity 283 L (285-295) mOsm/k g Lactic Acid 1.2 (0.5-2.2) mmol/L Calcium 8.3 L (8.5-10.5) mg/dL Total Bilirubin 0.5 (0.15-1.2) mg/dL AST 9 (0-32) U/L ALT 12 (0-33) U/L Alkaline Phosphata se 87 (35-105) IU/L Total Protein 7.1 (6.6-8.7) g/dL Albumin 4.0 (3.5-5.2) g/dL Globulin 3.1 (1.3-4.6) g/dL Lipase 17 (13-60) U/L Imaging Data^: CT Abd/Pel: Radiologist's impression: [address] [place] [address] CT Scan Report Signed Patient: Anne Payne #: [id number] : 1965Acct#:[id number] Age/Sex: 55 / FADM Date: 01/12/21 Loc: ERRoom/Bed: Attending Dr: Ordering Provider/Ordering MD: Emilia Loaiza Date of Service: 01/12/21 Procedure(s): CT abdomen pelvis w con* [id number] Accession Number(s): [id number] Report Number: [id number] WS: [id number] CT ABDOMEN AND PELVIS WITH CONTRAST HISTORY: abdominal pain, N/V/D TECHNIQUE: Imaging performed of the abdomen and pelvis with IV contrast. Single phase imaging of the abdomen. Coronal and sagittal reformats are submitted. All CT scans at [facility] use at least one of these dose optimization techniques: automated exposure control; mA and/or kV adjustment per patient size (includes targeted exams where dose is matched to clinical indication); or iterative reconstruction. IV CONTRAST: Omnipaque 300; 95 mL IV. Oral contrast: No DLP: 1817.95 mGy.cm COMPARISON: 07/10/2019 Lower thorax: Bilateral interstitial thickening at the lung bases. Heart is normal size. Small hiatal hernia. Bilateral breast implants. Liver/biliary system: Normal size liver. Low-attenuation lesions along the RIGHT lobe of the liver were similar to prior study from 03/20/2019. No bile duct dilatation. Gallbladder: Status post cholecystectomy. Pancreas: Normal size pancreas. Pancreatic duct is top normal at 2 mm. Spleen: Normal. Adrenal glands: Normal. Right kidney: Normal. Left kidney: 6 mm cyst cortex upper pole. No obstruction or solid mass. Aorta: Mild atherosclerosis with no aneurysm. Lymphadenopathy: None. Free fluid: Small amount of free fluid in the pelvis. Small amount of free fluid extends along the RIGHT paracolic gutter. GI tract: There is marked dilatation of the small bowel and stomach with fluid. Small bowel loops measure up to 3.6 cm in diameter. There is a transition point in the RIGHT lower quadrant which is probably secondary to an adhesion. The appendix is normal. Mildly collapsed colon. No ischemic changes. Abdominal wall: Unremarkable abdominal wall. No hernia. Pelvis: Small amount of free fluid in the pelvis. Prior hysterectomy. Urinary bladder is normal. Bones: Bilateral osteonecrosis involving the femoral heads. CT/CT abdomen pelvis w con* [id number] IMPRESSION: 1. High grade distal small bowel obstruction. Transition point RIGHT lower quadrant is probably due to an adhesion. 2. Normal appendix. 3. Prior cholecystectomy and hysterectomy. 4. Small amount of ascites. 5. Bilateral femoral head osteonecrosis. Dictated By:Ebony Meléndez DO Signed By:Ebony Meléndez DOSigned Date/Time:01/12/21 1431 DD/ 1425 Discharge Plan Discharge Patient Disposition: Admitted As Inpatient Clinical Impression: Small bowel obstruction due to adhesions, Acute hypokalemia Condition: Stable Prescriptions: No Action diphenhydramine HCl 25 mg tablet 25 mg PO DAILY PRN (Reason: Headache) RF: 0 sumatriptan 5 mg/actuation spray,non-aerosol 20 mg INTRANASAL Q2H MDD 40mg in 24 hours PRN (Reason: migraine headache) Qty: 6 RF: 0 Aimovig Autoinjector 140 mg/mL auto-injector 140 mg SUBCUT .monthly Qty: 1 RF: 2 clonidine HCl 0.1 mg tablet 0.1 mg PO DAILY PRN (Reason: high bp) RF: 0 pantoprazole 40 mg tablet,delayed release (DR/EC) 40 mg PO DAILY@08 Qty: 90 RF: 0 pregabalin 100 mg capsule 100 mg PO TID@08,,20 Qty: 90 RF: 0 acetaminophen [Tylenol Extra Strength] 500 mg Tablet 1,000 mg PO PRN RF: 0 acyclovir 400 mg tablet 400 mg PO TID PRN (Reason: herpes outbreak) Qty: 21 RF: 2 furosemide 40 mg tablet See Rx Instructions .ROUTE .COMPLEX RF: 0 carvedilol 6.25 mg tablet 6.25 mg PO BID@,20 RF: 0 potassium chloride [Klor-Con 10] 10 mEq tablet extended release See Rx Instructions .ROUTE .COMPLEX RF: 0 estradiol 2 mg tablet 2 mg PO DAILY@08 RF: 0 promethazine 25 mg tablet 25 mg PO Q6H PRN (Reason: prn headache/migraine) Qty: 20 RF: 0 Excedrin Migraine 250-250-65 mg Tablet 2 tab PO PRN PRN (Reason: Migraine Headache) RF: 0 diltiazem HCl 300 mg capsule,extended release 24 hr 300 mg PO DAILY@08 RF: 0 ondansetron HCl [Zofran] 4 mg tablet 4 mg PO Q6H Qty: 10 RF: 0 losartan-hydrochlorothiazide 100-25 mg tablet 1 tab PO DAILY@0800 RF: 0 Cymbalta 60 mg capsule,delayed release(DR/EC) 60 mg PO DAILY@0800 RF: 0 Referrals: Krys Bailey DO [Primary Care Provider] - Coding Level of Care Code ED Wholesale Account Manager for Chg Fwd Exam Comprehensive
[2021-01-12 14:04] LABS: Basophils % 0.7 %; Eosinophils % 0.7 %; Hematocrit 46.3 % (37.0-47.0); Hemoglobin 15.4 g/dL (11.5-15.3); Lymphocytes # 1.3 10^3/uL (0.8-4.8); Lymphocytes % 22.4 %; Mean Corpuscular HGB Conc 33.3 g/dL (30.0-36.0); Mean Corpuscular Hemoglobin 29.3 pg (28.0-34.0); Mean Platelet Volume 11.4 fL (7.4-10.4); Monocytes # 0.7 10^3/uL (0.2-0.9); Monocytes % 11.7 %; Neutrophils # 3.69 10^3/uL (1.8-7.7); Neutrophils % 64.2 %; Nucleated Red Blood Cells % 0 %; Platelet Count 337 10^3/cmm (130-400); Red Blood Count 5.26 10^6/uL (4.1-5.3); Red Cell Distribution Width 13.4 % (12.1-15.1); White Blood Count 5.8 10^3/uL (4.0-10.0)
[2021-01-12] MEDS: iohexol 300 mg/mL 100 mL Btl IV (14:19)
[2021-01-12 14:54] LABS: Alanine Aminotransferase 12 U/L (0-33); Alkaline Phosphatase 87 IU/L (35-105); Anion Gap 16.8 (5-19); Aspartate Amino Transferase 9 U/L (0-32); Blood Urea Nitrogen 23 mg/dL (6-20); Calcium 8.3 mg/dL (8.5-10.5); Carbon Dioxide 26 mmol/L (22-29); Chloride 94 mmol/L (98-107); Globulin 3.1 g/dL (1.3-4.6); Glomerular Filtration Rate 42.7 mL/min (90-130); Glucose 130 mg/dL (65-115); Lipase 17 U/L (13-60); Osmolality Calculated 283 mOsm/kg (285-295); Sodium 134 mmol/L (136-145); Total Bilirubin 0.5 mg/dL (0.15-1.2); Total Protein 7.1 g/dL (6.6-8.7)
[2021-01-12 15:10] LABS: Potassium 2.8 mmol/L (3.5-5.1)
[2021-01-12] MEDS: sodium chloride 0.9% 1,000 ML 999 ML IV (15:17)
[2021-01-12 15:19] LABS: Lactic Sepsis W/Reflex 1.2 mmol/L (0.5-2.2)
[2021-01-12] MEDS: potassium chloride premix 100 ML 50 MEQ IV (15:36)
--- NOTE | 2021-01-12 16:35 | PM.HP ---
Providers/Chief Complaint Admitting Physician: Jg Cosby MD Primary Care Provider: Krys Bailey DO Chief Complaint: N/V/D SINCE TUESDAY History of Present Illness Anne Payne is a 55 year old female with PMH of HTN, MDD,came in with c/o nausea,multiple vomiting, and generalized abdominal pain started this Tuesday.Upon arrival in the ER she was worked up for above mention complain.She is complaining of intractable non bloody vomiting as well as multiple episodes watery diarrhea. Imaging studies: CT abdomen pelvis w con: High grade distal small bowel obstruction. Transition point RIGHT lower quadrant is probably due to an adhesion. Prior cholecystectomy and hysterectomy. Pertinent Labs : CBC: H/H :Stable, wbc : Stable, BMP : K: 2.8 , BUN/SCR: 23/1.3 . ECA Medications: N.G Tube Placement, I.V Pottasium, Pain medications and I.V fluids. Review of Systems Const: Denies: fever(s), chills or body aches Card: Denies: palpitations or edema Resp: Denies: dyspnea or pain on inspiration : Denies: flank pain Musc: Denies: back pain, extremity pain or extremity swelling Neuro: Denies: headache(s), difficulty walking or confusion Medications/Allergies Home Medications Medication Instructions Recorded Confirmed Last Taken Type diphenhydramine HCl 25 mg tablet 25 mg PO DAILY PRN tab 11/22/19 01/12/21 03/21/20 History clonidine HCl 0.1 mg tablet 0.1 mg PO DAILY PRN tab 11/26/19 01/12/21 04/15/20 History sumatriptan 5 mg/actuation nasal 20 mg INTRANASAL Q2H PRN #6 each 01/11/20 01/12/21 04/15/20 Rx spray MDD 40mg in 24 hours acetaminophen [Tylenol Extra 1,000 mg PO PRN 03/24/20 01/12/21 10/18/20 History Strength] Excedrin Migraine 2 tab PO PRN PRN 03/31/20 01/12/21 09/24/20 08:00 History diltiazem HCl 300 mg capsule,24 300 mg PO DAILY@08 cap 06/27/20 01/12/21 01/11/21 History hr,extended release carvedilol 6.25 mg PO BID@08,20 09/24/20 01/12/21 01/11/21 History estradiol 2 mg PO DAILY@08 09/24/20 01/12/21 01/11/21 History furosemide See Rx Instructions .ROUTE .COMPLEX 09/24/20 01/12/21 09/24/20 History potassium chloride [Klor-Con 10] See Rx Instructions .ROUTE .COMPLEX 09/24/20 01/12/21 09/24/20 History promethazine 25 mg PO Q6H PRN #20 tab 09/24/20 01/12/21 Unknown Rx erenumab-aooe 140 mg/mL 140 mg SUBCUT .monthly #1 ml 10/14/20 01/12/21 10/16/20 Rx subcutaneous auto-injector pantoprazole 40 mg tablet,delayed 40 mg PO DAILY@08 #90 tab 11/20/20 01/12/21 01/11/21 Rx release acyclovir 400 mg tablet 400 mg PO TID PRN #21 tab 12/12/20 01/12/21 Unknown Rx pregabalin 100 mg capsule 100 mg PO TID@08,13,20 #90 cap 01/01/21 01/12/21 01/11/21 Rx ondansetron HCl [Zofran] 4 mg PO Q6H #10 tab 01/10/21 01/12/21 Unknown Rx Cymbalta 60 mg PO DAILY@0800 01/12/21 01/12/21 01/11/21 History losartan-hydrochlorothiazide 1 tab PO DAILY@0800 01/12/21 01/12/21 01/11/21 History Allergies Allergy/AdvReac Type Severity Reaction Status Date / Time risperidone [From Risperdal] Allergy Unconscious Verified 01/04/21 18:23 Sulfa (Sulfonamide Allergy ALGY-Hives Verified 01/04/21 18:23 Antibiotics) tramadol Allergy ADR-Migrain Verified 01/04/21 18:23 e PFSH Acute PFSH: Medical History (Updated 01/12/21 @ 15:50 by BRI Staples) Depression with anxiety Fear of insects (Unknown) Specifically tics Herpes genitalia History of malignant melanoma Hot flashes HTN (hypertension) with goal to be determined Inappropriate sinus tachycardia Irritable bowel disease Long-term current use of opiate analgesic Lumbar radiculitis Major depressive disorder, recurrent, severe with psychotic symptoms Malignant hypertension Pain management contract signed Vaginal Discharge Surgical History H/O tubal ligation (~2008) History of augmentation of both breasts (~2012) SILICONE IMPLANTS Hx of abdominoplasty (~2009) Hx of section (~2008) Hx of decompressive lumbar laminectomy L5-S1 [facility] IN [place], [place]. Hx of hernia repair (~2012) umbilical Hx of hysterectomy (~2008) CHRISTINA-- ovaries spared. Family History Other Anesthesia complication CAD (coronary artery disease) Cancer Chronic kidney disease (CKD) Dementia Diabetes Hypertension Psychiatric illness Stroke Suicide Denies family history of Clotting disorder Hyperlipidemia Bleeding disorder Family history of premature coronary artery disease Lung disease Social History Smoking and tobacco status: never smoked Alcohol intake: current Alcohol intake frequency: holidays/special occasions only Alcohol type: wine History of recent travel: No Vitals/I&O/Wt Last Vital Signs Temp 97.7 F 01/12/21 12:27 Pulse 87 01/12/21 13:30 Resp 16 01/12/21 13:30 BP 106/74 01/12/21 13:30 Pulse Ox 94 01/12/21 13:30 Weight last 48 hrs Weight 80.739 kg Physical Exam Const: COMMON NORMALS: patient oriented x3 HENMT: HEAD & SCALP: normocephalic and atraumatic Resp: AUSCULTATION: clear to auscultation bilaterally Cardio: COMMON NORMALS: regular rate, regular rhythm, S1 normal heart sound present, S2 normal heart sound present, No gallops present (Cardio), No murmurs present (Cardio), No rub (Cardio) and Peripheral pulses 2+ throughout RATE: regular rate RHYTHM: regular rhythm HEART SOUNDS: S1 normal heart sound present and S2 normal heart sound present PERIPHERAL PULSES: Peripheral pulses 2+ throughout GI: COMMON NORMALS: No hepatosplenomegaly present and no masses RECTAL EXAM: deferred OTHER: Obese Abdomen,Hypoactive BS , Mild Epigastric Tenderness Present,no guarding, no rigidity, no rebound tenderness. Extremity: COMMON NORMALS: no clubbing, cyanosis or edema and no pedal edema Neuro: COMMON NORMALS: patient oriented x3 Data : 01/12/21 13:50 01/12/21 13:50 A&P Assessment and plan (1) Small bowel obstruction due to adhesions: NPO N.G tube Placement I.V Hydration Pain Control Zofran Appreciate Surgery recommendations. Status: Acute (2) Acute hypokalemia: Monitor Serum K and replace Status: Acute (3) Obesity (BMI 30-39.9): Status: Acute (4) Malignant hypertension: Currently blood pressure is well controlled. Status: Acute (5) Chronic migraine without aura, intractable, with status migrainosus: Status: Acute Attestations Medical Necessity Statement*: Patient needs to be in hospital for the management of ac small bowel obstruction. Anticipated LOS Greater then 2 midnights. Coding Level of Care Code Acute Technology Assistant for Chg Fwd Exam Detailed Diagnoses Small bowel obstruction due to adhesions K56.50 Acute hypokalemia E87.6 Obesity (BMI 30-39.9) E66.9 Malignant hypertension I10 Chronic migraine without aura, intractable, with status migrainosus G43.711
[2021-01-12] MEDS: LORazepam 2 mg/mL INJ 1 mL 0.5 MG IVP (16:37)
[2021-01-12] MEDS: morphine 4 mg/mL SDV 1 mL IVP ×2 (18:17→21:44)
[2021-01-12] MEDS: ondansetron 2 mg/ML SDV 2 mL 4 MG IVP (18:17)
[2021-01-12] MEDS: sodium chloride 0.9% 1,000 ML 100 ML IV (18:18)
[2021-01-12] MEDS: sodium chlor 0.9% + KCl 20 mEq 20 MEQ/1,000 ML BAG 100 MEQ IV (18:29)
--- NOTE | 2021-01-12 19:16 | PM.CONSULT ---
Providers/Reason For Consult Consulting Physican/Specialty*: General Surgery Jorge Luis Lambert MD Reason for Consult*: Small bowel obstruction. Attending Physician: Jg Cosby MD Primary Care Provider: Krys Bailey DO History of Present Illness History of Present Illness Anne Payne is a 55 year old female who developed some mid abdominal band like pain associated with nausea, vomiting and diarrhea last Tuesday night/early Tuesday morning. She came to the emergency room on Tuesday and was given some antiemetics but no imaging was done. She says she went home and continued to have the same symptoms. She returned to the hospital today and a CAT scan was performed and showed a distal small bowel obstruction. A nasogastric tube was placed and the patient is now on the floor. The patient says this has never happened to her before. As mentioned, she has continued to have loose stools, and had a loose bowel movement just 2 hours before she came into the hospital. She has been passing a little bit of flatus. She does mention that she has lost about 25 pounds intentionally over the past 2 months with a diet that she has been on, but is not eating any unusual foods with it. Review of Systems General: Reports: 10 or more systems reviewed and unremarkable except in HPI and below Const: Denies: fever(s) ENMT: Reports: throat pain (With NG) GI: Reports: abdominal pain, nausea, vomiting and diarrhea; Denies: hematochezia Meds/Allergies Home Medications and Allergies Home Medications Medication Instructions Recorded Confirmed Last Taken Type diphenhydramine HCl 25 mg tablet 25 mg PO DAILY PRN tab 11/22/19 01/12/21 03/21/20 History clonidine HCl 0.1 mg tablet 0.1 mg PO DAILY PRN tab 11/26/19 01/12/21 04/15/20 History sumatriptan 5 mg/actuation nasal 20 mg INTRANASAL Q2H PRN #6 each 01/11/20 01/12/21 04/15/20 Rx spray MDD 40mg in 24 hours acetaminophen [Tylenol Extra 1,000 mg PO PRN 03/24/20 01/12/21 10/18/20 History Strength] Excedrin Migraine 2 tab PO PRN PRN 03/31/20 01/12/21 09/24/20 08:00 History diltiazem HCl 300 mg capsule,24 300 mg PO DAILY@08 cap 06/27/20 01/12/21 01/11/21 History hr,extended release carvedilol 6.25 mg PO BID@08,20 09/24/20 01/12/21 01/11/21 History estradiol 2 mg PO DAILY@08 09/24/20 01/12/21 01/11/21 History furosemide See Rx Instructions .ROUTE .COMPLEX 09/24/20 01/12/21 09/24/20 History potassium chloride [Klor-Con 10] See Rx Instructions .ROUTE .COMPLEX 09/24/20 01/12/21 09/24/20 History promethazine 25 mg PO Q6H PRN #20 tab 09/24/20 01/12/21 Unknown Rx erenumab-aooe 140 mg/mL 140 mg SUBCUT .monthly #1 ml 10/14/20 01/12/21 10/16/20 Rx subcutaneous auto-injector pantoprazole 40 mg tablet,delayed 40 mg PO DAILY@08 #90 tab 11/20/20 01/12/21 01/11/21 Rx release acyclovir 400 mg tablet 400 mg PO TID PRN #21 tab 12/12/20 01/12/21 Unknown Rx pregabalin 100 mg capsule 100 mg PO TID@08,13,20 #90 cap 01/01/21 01/12/21 01/11/21 Rx ondansetron HCl [Zofran] 4 mg PO Q6H #10 tab 01/10/21 01/12/21 Unknown Rx Cymbalta 60 mg PO DAILY@0800 01/12/21 01/12/21 01/11/21 History losartan-hydrochlorothiazide 1 tab PO DAILY@0800 01/12/21 01/12/21 01/11/21 History Allergies Allergy/AdvReac Type Severity Reaction Status Date / Time risperidone [From Risperdal] Allergy Unconscious Verified 01/04/21 18:23 Sulfa (Sulfonamide Allergy ALGY-Hives Verified 01/04/21 18:23 Antibiotics) tramadol Allergy ADR-Migrain Verified 01/04/21 18:23 e Current Medications Current Medications Generic Name Dose Route Start Last Admin Trade Name Freq PRN Reason Stop Dose Admin Potassium Chloride/Sodium Chloride 20 meq in 1,000 mls @ 100 mls/hr 01/12/21 16:30 01/12/21 18:29 Sodium Chlor 0.9% + Kcl 20 Meq IV 100 mls/hr .Q10H CALIN Administration Ondansetron HCl 4 mg 01/12/21 16:30 01/12/21 18:17 Ondansetron 2 Mg/Ml Sdv 2 Ml IVP 4 mg Q8H CALIN Administration PFSH Acute PFSH: Medical History (Updated 01/12/21 @ 15:50 by BRI Staples) Depression with anxiety Fear of insects (Unknown) Specifically tics Herpes genitalia History of malignant melanoma Hot flashes HTN (hypertension) with goal to be determined Inappropriate sinus tachycardia Irritable bowel disease Long-term current use of opiate analgesic Lumbar radiculitis Major depressive disorder, recurrent, severe with psychotic symptoms Malignant hypertension Pain management contract signed Vaginal Discharge Surgical History (Updated 01/12/21 @ 19:19 by Jorge Luis Lambert MD) H/O tubal ligation (~2008) History of augmentation of both breasts (~2012) SILICONE IMPLANTS Hx of abdominoplasty (~2009) Hx of section (~2008) x 1 Hx of decompressive lumbar laminectomy x 2 -- first L5-S1 [facility] IN [place], [place]. Hx of hernia repair (~2012) ventral (patient thinks mesh was used) Hx of hysterectomy (~2008) CHRISTINA-- ovaries spared. Family History Other Anesthesia complication CAD (coronary artery disease) Cancer Chronic kidney disease (CKD) Dementia Diabetes Hypertension Psychiatric illness Stroke Suicide Denies family history of Clotting disorder Hyperlipidemia Bleeding disorder Family history of premature coronary artery disease Lung disease Social History Smoking and tobacco status: never smoked Alcohol intake: current Alcohol intake frequency: holidays/special occasions only Alcohol type: wine History of recent travel: No Vitals/I&O/Wt Last Vital Signs Temp 98.2 F 01/12/21 19:10 Pulse 92 01/12/21 19:10 Resp 17 01/12/21 19:10 BP 137/83 01/12/21 19:10 Pulse Ox 95 01/12/21 19:10 01/12/21 01/12/21 01/12/21 06:59 14:59 22:59 Intake Total 1121.667 / 1121.667 Output Total 100 / 100 Balance 1021.667 / 1021.667 Weight last 48 hrs Weight 178 lb Physical Exam Narrative: EXAM NARRATIVE: The patient was encountered in her hospital room. She has a nasogastric tube in which is draining light brown-colored material. She does not appear to be in any distress. The pupils seem equal. No carotid bruits are heard. The lungs are clear anteriorly. The heart is regular. The abdomen is moderately obese. She has a healed vertical incision and a healed Pfannenstiel incision. She has a circular scar around her umbilicus. Bowel sounds are present and may be somewhat high-pitched at times. The abdomen is moderately obese but is soft. The patient had scattered tenderness about the abdomen with perhaps more noticeable tenderness in the lower midline and right lower quadrant. There is no evidence of peritonitis. No obvious masses are palpated. The extremities reveal no edema. Neurologically the patient is grossly intact. Data Imaging^: CT Abd/Pel: Radiologist's impression: CT abdomen/pelvis 01/12/2021 IMPRESSION: 1. High grade distal small bowel obstruction. Transition point RIGHT lower quadrant is probably due to an adhesion. 2. Normal appendix. 3. Prior cholecystectomy and hysterectomy. 4. Small amount of ascites. 5. Bilateral femoral head osteonecrosis. A&P Assessment and plan (1) Small bowel obstruction due to adhesions: CT reviewed. I agree with the assessment of a small bowel obstruction. Interestingly, the obstruction appears to be fairly high-grade but the patient continues to pass some loose stool. She does have a limited amount of air, fluid, and some stool in the colon, but her colon is clearly very decompressed compared to her small bowel. To me, the transition point appears to be in the medial aspect of the right lower quadrant. We discussed small bowel obstructions in some detail. We discussed conservative management with nasogastric tubes, surgery for those patients who do not get better with conservative measures, etc. The patient seems to understand. She is already feeling better with her nasogastric tube in place. Continue nasogastric tube. Chloraseptic spray for sore throat. Subcutaneous heparin. I will continue to follow with you while the patient is hospitalized. Status: Acute Consult Attestations Medical Necessity Statement: See admitting service's notation. Coding Level of Care Code Acute Urologic Surgeon for Chg Fwd Diagnoses Small bowel obstruction due to adhesions K56.50
[2021-01-12] MEDS: heparin 5,000 unit/mL INJ 1 mL 5000 UNIT SUBCUT (21:05)
[2021-01-12] MEDS: famotidine 20 mg/2 mL INJ IVP (21:39)
[2021-01-12 23:20] LABS: Add Urine Microscopic? YES; Bilirubin Urine 1+ (Negative); Blood Urine Neg (Negative); Glucose Urine UA Norm (Normal); Ketones Urine 1+ (Negative); Leukocyte Esterase Urine Negative (Negative); Nitrate Urine Negative (Negative); Protein Urine 1+ (Negative); Specific Gravity, Urine 1.005 (1.005-1.030); Urine Appearance Clear (CLEAR); Urine Color Yellow (Yellow); Urobilinogen Urine Norm (Negative); pH Urine 7 (5-7)
[2021-01-12 23:21] LABS: Add Urine Culture? No; Amorphous Sediment Urine 1+ /hpf; RBC Urine 0-4 /hpf (0-2); Squamous Epithelial Cell Urine 0-4 /hpf (0-5); WBC Urine 0-4 /hpf (0-5)
[2021-01-13] VITALS (10 sets, daily range): BP systolic 127–159; BP diastolic 76–87; PULSE 76–107; RESP 17–19; TEMP 36.7–37.1; O2SAT 94–97
[2021-01-13] MEDS: phenol oral Spray 177 mL 5 SPRAY MUCOUS MEM (00:57)
[2021-01-13] MEDS: ondansetron 2 mg/ML SDV 2 mL 4 MG IVP ×3 (00:59→17:41)
[2021-01-13] MEDS: sodium chlor 0.9% + KCl 20 mEq 20 MEQ/1,000 ML BAG 100 MEQ IV (04:21)
[2021-01-13] MEDS: morphine 4 mg/mL SDV 1 mL IVP ×2 (04:21→21:42)
[2021-01-13 05:14] LABS: Basophils % 0.5 %; Eosinophils # 0.1 10^3/uL (0.0-0.8); Eosinophils % 1.1 %; Hematocrit 39.5 % (37.0-47.0); Hemoglobin 12.9 g/dL (11.5-15.3); Lymphocytes # 1.7 10^3/uL (0.8-4.8); Lymphocytes % 38.4 %; Mean Corpuscular HGB Conc 32.7 g/dL (30.0-36.0); Mean Corpuscular Hemoglobin 29.6 pg (28.0-34.0); Mean Corpuscular Volume 90.6 fL (81-99); Mean Platelet Volume 11.6 fL (7.4-10.4); Monocytes # 0.6 10^3/uL (0.2-0.9); Monocytes % 13.4 %; Neutrophils # 2.04 10^3/uL (1.8-7.7); Neutrophils % 46.4 %; Nucleated Red Blood Cells % 0 %; Platelet Count 228 10^3/cmm (130-400); Red Blood Count 4.36 10^6/uL (4.1-5.3); Red Cell Distribution Width 13.4 % (12.1-15.1); White Blood Count 4.4 10^3/uL (4.0-10.0)
[2021-01-13 05:37] LABS: Blood Urea Nitrogen 18 mg/dL (6-20); Calcium 7.4 mg/dL (8.5-10.5); Carbon Dioxide 25 mmol/L (22-29); Chloride 100 mmol/L (98-107); Glomerular Filtration Rate 65.2 mL/min (90-130); Glucose 96 mg/dL (65-115); Osmolality Calculated 286 mOsm/kg (285-295); Sodium 137 mmol/L (136-145)
[2021-01-13 05:47] LABS: Anion Gap 14.9 (5-19); Potassium 2.9 mmol/L (3.5-5.1)
[2021-01-13] MEDS: dextrose 5%-ns 0.45% + KCl 40 1,000 ML 125 MEQ IV (07:29)
[2021-01-13] MEDS: heparin 5,000 unit/mL INJ 1 mL 5000 UNIT SUBCUT ×2 (07:32→17:44)
--- NOTE | 2021-01-13 07:40 | PM.PN ---
Subjective Subjective: Interval history: The patient is feeling better today. She is now passing flatus and more stool. She feels like her abdomen is back to normal. Vitals/I&O/Wt Last Vital Signs Temp 98.1 F 01/13/21 07:16 Pulse 93 01/13/21 07:16 Resp 18 01/13/21 07:16 BP 154/77 01/13/21 07:16 Pulse Ox 95 01/13/21 07:16 01/12/21 01/13/21 01/13/21 22:59 06:59 14:59 Intake Total 1121.667 / 2108.334 986.667 / 2108.334 Output Total 300 / 1900 1600 / 1900 Balance 821.667 / 208.334 -613.333 / 208.334 Weight last 48 hrs Weight 178 lb Physical Exam Narrative: EXAM NARRATIVE: The abdomen is soft and has no appreciable tenderness. Data : 01/13/21 04:12 01/13/21 04:12 A&P Assessment and plan (1) Small bowel obstruction due to adhesions: The patient appears to be doing better. I am going to do a trial of NG clamping and see how she does. Status: Acute Attestations Medical Necessity Statement*: See admitting service's notation. Coding Level of Care Code Acute Jumpbasting Collar Baster for 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 Diagnoses Small bowel obstruction due to adhesions K56.50
[2021-01-13] MEDS: famotidine 20 mg/2 mL INJ IVP ×2 (09:25→21:17)
[2021-01-13] MEDS: lidocaine 1% 5 ML in potassium chloride premix 100 ML 25 ML IV (09:35)
--- NOTE | 2021-01-13 11:19 | PM.PN ---
Subjective Subjective: Interval history: Patient was seen and examined today.She is passing gas,diarrhea has improved.Abdominal pain has decreased. Her other vitals and labs have been reviewed. Medications: Reviewed: Yes Vitals/I&O/Wt Last Vital Signs Temp 98.2 F 01/13/21 11:13 Pulse 102 H 01/13/21 11:13 Resp 18 01/13/21 11:13 BP 130/86 01/13/21 11:13 Pulse Ox 95 01/13/21 11:13 01/12/21 01/13/21 01/13/21 22:59 06:59 14:59 Intake Total 1121.667 / 1121.667 986.667 / 2108.334 Output Total 300 / 300 1600 / 1900 Balance 821.667 / 821.667 -613.333 / 208.334 Weight last 48 hrs Weight 80.739 kg Physical Exam Const: COMMON NORMALS: patient oriented x3 HENMT: COMMON NORMALS: normocephalic and atraumatic HEAD & SCALP: normocephalic and atraumatic Resp: COMMON NORMALS: clear to auscultation bilaterally AUSCULTATION: clear to auscultation bilaterally Cardio: COMMON NORMALS: regular rate, regular rhythm, S1 normal heart sound present, S2 normal heart sound present, No gallops present (Cardio), No murmurs present (Cardio), No rub (Cardio) and Peripheral pulses 2+ throughout RATE: regular rate RHYTHM: regular rhythm HEART SOUNDS: S1 normal heart sound present and S2 normal heart sound present PERIPHERAL PULSES: Peripheral pulses 2+ throughout GI: COMMON NORMALS: Soft to palpation and no masses AUSCULTATION: Yes normoactive bowel sounds PALPATION: Yes Soft to palpation RECTAL EXAM: deferred OTHER: obese abdomen Extremity: COMMON NORMALS: no clubbing, cyanosis or edema and no pedal edema Neuro: COMMON NORMALS: patient oriented x3 Data : 01/13/21 04:12 01/13/21 04:12 A&P Assessment and plan (1) Small bowel obstruction due to adhesions: NPO Initially on N.G tube. Now has been clamped I.V Hydration Pain Control Zofran Appreciate Surgery recommendations. Status: Acute (2) Acute hypokalemia: Monitor Serum K and replace Status: Acute (3) Obesity (BMI 30-39.9): Status: Acute (4) Malignant hypertension: Currently blood pressure is well controlled. Status: Acute (5) Chronic migraine without aura, intractable, with status migrainosus: Status: Acute Attestations Medical Necessity Statement*: Patient needs to be in hospital for the management of SBO,recurrent vomitting, diarrhea and the need for I.V Hydration Coding Level of Care Code Acute Decorating Machine Tender for Chg Fwd Diagnoses Small bowel obstruction due to adhesions K56.50 Acute hypokalemia E87.6 Obesity (BMI 30-39.9) E66.9 Malignant hypertension I10 Chronic migraine without aura, intractable, with status migrainosus G43.711
--- NOTE | 2021-01-13 11:28 | PC.NURSE ---
pt not tolerating clamped NG. pt complaining of pain and requested to be hook back to suction.
--- NOTE | 2021-01-13 18:33 | PC.NURSE ---
pt had 1700 output today from NG tube. pt passing gas but no bowel movement since early a.m. pt reports no pain or nausea.
[2021-01-14] MEDS: ondansetron 2 mg/ML SDV 2 mL 4 MG IVP ×3 (00:03→17:01)
--- NOTE | 2021-01-14 02:22 | PC.NURSE ---
NG TUBE: THE PATIENT CALLED THIS NURSE TO ROOM, REPORTED SHE FELT LIKE HER NG TUBE WAS NOT SUCTIONING ANYMORE. TUBE FLUSHED WITH WATER AND AIR, WITH NO RETURN. THIS PREPPED THE PATIENT FOR ADVANCEMENT OF THE TUBE. THE TUBE WAS BEING ADVANCED, THE PATIENT GRABBED MY ARM AND YELLED STOP! I CAN'T DO THIS, PLEASE STOP. TAKE IT OUT! TAKE IT SO I CAN GO HOME. I DON'T WANT IT ANYMORE. THIS NURSE WAS ABLE TO CALM THE PATIENT BY INSTRUCTING HER TO BREATH AND CALM DOWN. I CALLED FOR THE CHARGE NURSE TO COME IN AND TRY TO HELP EXPLAINING THE IMPORTANCE OF THE NG WITH HER HAVING A SBO. THE PATIENT REPORTED SHE UNDERSTOOD, BUT COULD NO HANDLE IT ANYMORE. THIS NURSE THEN EXPLAINED WHAT TO EXPECT WITH THE REMOVAL AND SHE REPORTED UNDERSTANDING. TUBE REMOVED AND DISPOSED OF PROPERLY. PATIENT GIVEN KLEENEX TO CLEAN FACE AND NOSE. INSTRUCTED PATIENT TO REPORT ANY NAUSEA OR VOMITING.
[2021-01-14] MEDS: dextrose 5%-ns 0.45% + KCl 40 1,000 ML 125 MEQ IV (02:58)
[2021-01-14 04:10] VITALS: BP 136/79; PULSE 98; RESP 18; TEMP 37; O2SAT 96
[2021-01-14 05:36] LABS: Basophils % 0.2 %; Eosinophils # 0.1 10^3/uL (0.0-0.8); Hematocrit 36.2 % (37.0-47.0); Lymphocytes # 1.5 10^3/uL (0.8-4.8); Lymphocytes % 29.7 %; Mean Corpuscular HGB Conc 33.1 g/dL (30.0-36.0); Mean Corpuscular Hemoglobin 29.3 pg (28.0-34.0); Mean Corpuscular Volume 88.5 fL (81-99); Mean Platelet Volume 11.4 fL (7.4-10.4); Monocytes # 0.5 10^3/uL (0.2-0.9); Monocytes % 10.1 %; Neutrophils % 58.6 %; Nucleated Red Blood Cells % 0 %; Platelet Count 187 10^3/cmm (130-400); Red Blood Count 4.09 10^6/uL (4.1-5.3); Red Cell Distribution Width 13.2 % (12.1-15.1)
[2021-01-14 06:01] LABS: Anion Gap 10.3 (5-19); Blood Urea Nitrogen 9 mg/dL (6-20); Calcium 7.7 mg/dL (8.5-10.5); Carbon Dioxide 28 mmol/L (22-29); Chloride 103 mmol/L (98-107); Glomerular Filtration Rate 65.2 mL/min (90-130); Glucose 121 mg/dL (65-115); Osmolality Calculated 286 mOsm/kg (285-295); Potassium 3.3 mmol/L (3.5-5.1); Sodium 138 mmol/L (136-145)
[2021-01-14 07:40] VITALS: BP 144/85; PULSE 98; RESP 18; TEMP 37; O2SAT 98
--- NOTE | 2021-01-14 08:58 | P.PN_ITS ---
Subjective Subjective: Interval history: The patient failed her NG tube clamping yesterday. Nursing reports that in the night it was clear that the nasogastric tube had been partially pulled out. They tried to advance it back into the stomach but the patient basically pulled it out all the way and refused to have them insert another one. Fortunately, it sounds like the patient has been doing well since then. She said she is passing flatus and has no abdominal pain. She denies any nausea or vomiting. She says she is hungry and would at least like to try some liquids when I offered. Vitals/I&O/Wt Last Vital Signs Temp 98.6 F 01/14/21 07:40 Pulse 98 01/14/21 07:40 Resp 18 01/14/21 07:40 BP 144/85 01/14/21 07:40 Pulse Ox 98 01/14/21 07:40 01/13/21 01/14/21 01/14/21 22:59 06:59 14:59 Intake Total 1455 / 2105 650 / 2105 0 / 0 Output Total 900 / 1800 0 / 1800 Balance 555 / 305 650 / 305 0 / 0 Weight last 48 hrs Weight 178 lb Physical Exam Narrative: EXAM NARRATIVE: The abdomen reveals minimal tenderness. Bowel sounds are present. Data : 01/14/21 04:52 01/14/21 04:52 A&P Assessment and plan (1) Small bowel obstruction due to adhesions: Nasogastric tube is now out/patient has refused to have another one put back in but so far seems to be doing okay. I will start her on some clear liquids and see how she does. She is aware that if she fails to continue to make progress, a nasogastric tube reinsertion will be the first recommendation. Status: Acute Attestations Medical Necessity Statement*: See admitting service's notation. Coding Level of Care Code Acute Training Associate for [facility]ana Diagnoses Small bowel obstruction due to adhesions K56.50
[2021-01-14] MEDS: heparin 5,000 unit/mL INJ 1 mL 5000 UNIT SUBCUT ×2 (09:23→19:48)
[2021-01-14] MEDS: famotidine 20 mg/2 mL INJ IVP ×2 (09:23→20:13)
[2021-01-14] MEDS: lidocaine 1% 5 ML in potassium chloride premix 100 ML 50 ML IV (09:31)
[2021-01-14 11:04] VITALS: BP 149/96; PULSE 94; RESP 16; TEMP 36.9; O2SAT 99
--- NOTE | 2021-01-14 11:35 | PM.PN ---
Subjective Subjective: Interval history: Patient was seen and examined today.She is passing gas,diarrhea has improved.Abdominal pain has decreased. She pulled out her NG tube last night. Currently she is on clear liquid diets. Tolerating well, plan is to advance the diet as tolerated. Her other vitals and labs have been reviewed. Medications: Reviewed: Yes Vitals/I&O/Wt Last Vital Signs Temp 98.4 F 01/14/21 11:04 Pulse 94 01/14/21 11:04 Resp 16 01/14/21 11:04 BP 149/96 01/14/21 11:04 Pulse Ox 99 01/14/21 11:04 01/13/21 01/14/21 01/14/21 22:59 06:59 14:59 Intake Total 1455 / 1455 650 / 2105 0 / 0 Output Total 900 / 1800 0 / 1800 Balance 555 / -345 650 / 305 0 / 0 Weight last 48 hrs Weight 80.739 kg Physical Exam Const: COMMON NORMALS: patient oriented x3 HENMT: COMMON NORMALS: normocephalic and atraumatic HEAD & SCALP: normocephalic and atraumatic Resp: COMMON NORMALS: clear to auscultation bilaterally AUSCULTATION: clear to auscultation bilaterally Cardio: COMMON NORMALS: regular rate, regular rhythm, S1 normal heart sound present, S2 normal heart sound present, No gallops present (Cardio), No murmurs present (Cardio), No rub (Cardio) and Peripheral pulses 2+ throughout RATE: regular rate RHYTHM: regular rhythm HEART SOUNDS: S1 normal heart sound present and S2 normal heart sound present PERIPHERAL PULSES: Peripheral pulses 2+ throughout GI: COMMON NORMALS: Soft to palpation and no masses AUSCULTATION: Yes normoactive bowel sounds PALPATION: Yes Soft to palpation RECTAL EXAM: deferred OTHER: obese abdomen Extremity: COMMON NORMALS: no clubbing, cyanosis or edema and no pedal edema Neuro: COMMON NORMALS: patient oriented x3 Data : 01/14/21 04:52 01/14/21 04:52 A&P Assessment and plan (1) Small bowel obstruction due to adhesions: NPO Initially on N.G tube. Now has been clamped I.V Hydration Pain Control Zofran Appreciate Surgery recommendations. Status: Acute (2) Acute hypokalemia: Monitor Serum K and replace Status: Acute (3) Obesity (BMI 30-39.9): Status: Acute (4) Malignant hypertension: Currently blood pressure is well controlled. Status: Acute (5) Chronic migraine without aura, intractable, with status migrainosus: Status: Acute Attestations Medical Necessity Statement*: Patient needs to be in hospital for management of small bowel obstruction. Coding Level of Care Code Acute Community Support Associate for [facility] Fwd Diagnoses Small bowel obstruction due to adhesions K56.50 Acute hypokalemia E87.6 Obesity (BMI 30-39.9) E66.9 Malignant hypertension I10 Chronic migraine without aura, intractable, with status migrainosus G43.711
[2021-01-14 16:00] VITALS: BP 141/84; PULSE 95; RESP 16; TEMP 36.8; O2SAT 96
[2021-01-14] MEDS: acetaminophen 325 mg Tablet 650 MG PO (17:01)
--- NOTE | 2021-01-14 18:07 | PC.NURSE ---
Patient is refusing her IV fluids at this time. Dr. Cosby notified.
[2021-01-14 18:55] VITALS: BP 143/84; PULSE 87; RESP 18; TEMP 36.6; O2SAT 97
--- NOTE | 2021-01-14 19:26 | PC.NURSE ---
Report to Janneth ALEXIS at this time.
[2021-01-14] MEDS: metoclopramide 5 mg/mL SDV 2 mL 10 MG IVP (22:48)
--- NOTE | 2021-01-14 23:42 | XRR_ITS ---
PROCEDURE INFORMATION: Exam: XR Chest Exam date and time: 01/14/2021 11:54 PM Age: 55 years old Clinical indication: Device placement; Ng tube; Prior surgery; Surgery type: Gb, hernia; Additional info: Ng placement TECHNIQUE: Imaging protocol: XR of the chest. Views: 1 view. COMPARISON: CR XR chest 2V* [id number] 06/27/2020 10:08 AM FINDINGS: Tubes, catheters and devices: The NG tube terminates in the mid gastric body Lungs: Unremarkable. No consolidation. Pleural spaces: Unremarkable. No pleural effusion. No pneumothorax. Heart/Mediastinum: Unremarkable. No cardiomegaly. Bones/joints: Unremarkable. XR/XR chest 1V portable [id number] IMPRESSION: NG tube in the stomach.
[2021-01-14 23:45] VITALS: BP 164/75; PULSE 91; RESP 18; TEMP 37; O2SAT 98
[2021-01-15] VITALS (22 sets, daily range): BP systolic 120–169; BP diastolic 69–96; PULSE 87–100; RESP 16–20; TEMP 36.6–37; O2SAT 93–100
[2021-01-15] MEDS: ondansetron 2 mg/ML SDV 2 mL 4 MG IVP ×2 (00:20→08:28)
[2021-01-15] MEDS: morphine 4 mg/mL SDV 1 mL IVP (02:32)
[2021-01-15 05:02] LABS: Eosinophils % 0.6 %; Hemoglobin 13.3 g/dL (11.5-15.3); Lymphocytes # 1.2 10^3/uL (0.8-4.8); Lymphocytes % 25.1 %; Mean Corpuscular HGB Conc 33.3 g/dL (30.0-36.0); Mean Corpuscular Volume 90.1 fL (81-99); Mean Platelet Volume 11.7 fL (7.4-10.4); Monocytes # 0.3 10^3/uL (0.2-0.9); Monocytes % 7.4 %; Neutrophils # 3.07 10^3/uL (1.8-7.7); Neutrophils % 66.5 %; Nucleated Red Blood Cells % 0 %; Platelet Count 172 10^3/cmm (130-400); Red Blood Count 4.44 10^6/uL (4.1-5.3); Red Cell Distribution Width 13.2 % (12.1-15.1); White Blood Count 4.6 10^3/uL (4.0-10.0)
[2021-01-15 05:14] LABS: Blood Urea Nitrogen 8 mg/dL (6-20); Calcium 8.4 mg/dL (8.5-10.5); Carbon Dioxide 24 mmol/L (22-29); Chloride 106 mmol/L (98-107); Glomerular Filtration Rate 74.7 mL/min (90-130); Glucose 94 mg/dL (65-115); Osmolality Calculated 286 mOsm/kg (285-295); Sodium 139 mmol/L (136-145)
[2021-01-15 05:20] LABS: Anion Gap 13.2 (5-19); Potassium 4.2 mmol/L (3.5-5.1)
--- NOTE | 2021-01-15 06:30 | CTR_ITS ---
PROCEDURE INFORMATION: Exam: CT Abdomen And Pelvis Without Contrast Exam date and time: 01/15/2021 7:31 AM Age: 55 years old Clinical indication: Abdominal pain; Prior surgery; Additional info: Follow-up small bowel obstruction TECHNIQUE: Imaging protocol: Computed tomography of the abdomen and pelvis without contrast. Radiation optimization: All CT scans at this facility use at least one of these dose optimization techniques: automated exposure control; mA and/or kV adjustment per patient size (includes targeted exams where dose is matched to clinical indication); or iterative reconstruction. COMPARISON: CT abdomen pelvis w con* [id number] 01/12/2021 2:30 PM RADIATION DOSE METRICS: Total DLP (mGy-cm): 1769.03 FINDINGS: Tubes, catheters and devices: The feeding tube enters the stomach with the tip in the lower gastric body. Lungs: Right lower lobe calcified pulmonary parenchymal granuloma. Liver: Normal. No mass. Gallbladder and bile ducts: The gallbladder is surgically absent, with metallic clips in the gallbladder fossa. Pancreas: Normal. No ductal dilation. Spleen: Normal. No splenomegaly. Adrenal glands: Normal. No mass. Kidneys and ureters: Right mid renal posterolateral 1.7 mm calyceal calculus. Left pelvic periureteral calcification, stable. No specific evidence of acute obstructive uropathy. Stomach and bowel: There is less extensive caliber prominence of mid-distal small bowel loops with predominantly fluid-filled loops. A relatively abrupt caliber transition is redemonstrated, currently in the left mid abdomen. Distal small bowel loop decompression. Appendix: The vermiform appendix is not identified on this examination. There is, however, no pericecal abnormality to suggest appendicitis. Intraperitoneal space: Nonspecific mild posterior pelvic peritoneal fluid. Vasculature: Unremarkable. No abdominal aortic aneurysm. Lymph nodes: No enlarged lymph nodes. Urinary bladder: The urinary bladder is decompressed and difficult to assess. Reproductive: The uterus is status post hysterectomy. The right ovary is not identified. Bones/joints: L5-S1 spondylosis with left neural foraminal stenosis. Soft tissues: Bilateral partially imaged mammary implants are present. CT/CT abdomen pelvis wo con [id number] IMPRESSION: 1. Persistent but improved partial small bowel obstruction. 2. Prior cholecystectomy. 3. Right renal calyceal lithiasis. 4. Prior hysterectomy. 5. Nonspecific mild posterior pelvic peritoneal fluid, decreased. Radiation Dose CTDIVOL = (mGy): DLP = 1769.03 (mGy-cm)
--- NOTE | 2021-01-15 06:31 | PM.PN ---
Subjective Subjective: Interval history: The patient says she did fairly well throughout the day without her nasogastric tube yesterday, but started having more problems again last night. She ended up getting sick and vomiting. She ended up having to have a nasogastric tube replaced. She says they got 2 canisters of fluid suctioned out with it. Despite this, she says she continues to pass some loose stool. I am ready for surgery. Vitals/I&O/Wt Last Vital Signs Temp 97.8 F 01/15/21 04:14 Pulse 94 01/15/21 04:14 Resp 18 01/15/21 04:14 BP 145/80 01/15/21 04:14 Pulse Ox 95 01/15/21 04:14 01/14/21 01/14/21 01/15/21 14:59 22:59 06:59 Intake Total 585 / 585 0 / 585 Output Total 100 / 100 Balance 585 / 485 0 / 485 -100 / 485 Physical Exam Narrative: EXAM NARRATIVE: The abdomen is somewhat distended. She has some mild tenderness in the mid and lower abdomen. Data : 01/15/21 04:13 01/15/21 04:13 A&P Assessment and plan (1) Small bowel obstruction due to adhesions: The patient's nasogastric tube had to be replaced last night. She says she is ready to proceed with an exploration. Since she is still passing stool, I told her that it may be worthwhile getting another CAT scan just to make sure we are still fighting what appears to be a significant obstructive process, although I suspect this is probably going to be the case. She is agreeable. If the CAT scan shows continued evidence of an obstruction in the same area, the patient has already indicated that she would like to proceed with surgery. Surgical risks of bleeding, infection, internal organ injury, etc. were all discussed. Status: Acute Attestations Medical Necessity Statement*: See admitting service's notation. Coding Level of Care Code Acute Armored Cable Machine Operator for [facility] Diagnoses Small bowel obstruction due to adhesions K56.50
[2021-01-15] MEDS: heparin 5,000 unit/mL INJ 1 mL 5000 UNIT SUBCUT ×2 (06:32→18:09)
--- NOTE | 2021-01-15 08:21 | P.PN_ITS ---
Subjective Subjective: Interval history: Patient was taken to OR in AM, seen in route. Medications: Reviewed: Yes Vitals/I&O/Wt Last Vital Signs Temp 97.7 F 01/16/21 07:02 Pulse 100 01/16/21 08:16 Resp 17 01/16/21 08:16 BP 152/86 01/16/21 07:02 Pulse Ox 99 01/16/21 08:16 01/15/21 01/16/21 01/16/21 22:59 06:59 14:59 Intake Total 1348.333 / 1398.333 465 / 1863.333 Output Total 350 / 1900 Balance 1348.333 / -151.667 115 / -36.667 Physical Exam Narrative: EXAM NARRATIVE: general: alert, awake HEENT : ng Chest: non-labored respiration ext; no edema Urinary Catheter Management^: Montanez: Cath Placed During This Visit: yes Reason for Continuing Indwelling Catheter: Other Urinary Catheter Date of Insertion: 01/15/21 Urinary Catheter Time of Insertion: 11:05 Data : 01/16/21 06:28 01/16/21 06:28 A&P Assessment and plan (1) Small bowel obstruction due to adhesions: NPO Proceeding with surgery Appreciate Surgery recommendations. Repeat labs in am Status: Acute (2) Acute hypokalemia: Monitor Serum K and replace Status: Acute (3) Obesity (BMI 30-39.9): Status: Acute (4) Malignant hypertension: Currently blood pressure is well controlled. Status: Acute (5) Chronic migraine without aura, intractable, with status migrainosus: Status: Acute Attestations Medical Necessity Statement*: Will require further hospitalization for post op care. Time Spent in Patient Care: Greater than 35 minutes (>than 50% of time spent in counselling and/or direct pt care on unit) . Coding Level of Care Code Acute Supervisor Sunglasses for [facility] Diagnoses Small bowel obstruction due to adhesions K56.50 Acute hypokalemia E87.6 Obesity (BMI 30-39.9) E66.9 Malignant hypertension I10 Chronic migraine without aura, intractable, with status migrainosus G43.711
[2021-01-15] MEDS: famotidine 20 mg/2 mL INJ IVP ×2 (08:28→20:15)
--- NOTE | 2021-01-15 09:10 | PC.SOCIAL ---
IMM Update Pg. 2 of IMM updated and reviewed with patient, who verbalized understanding.
--- NOTE | 2021-01-15 09:35 | PC.NURSE ---
Patient to surgery at this time.
--- NOTE | 2021-01-15 09:53 | ANES.PREANE2 ---
Pre-Anesthetic Assessment Pre-Anesthetic Assessment: Height/Weight: Height 1.55 m Weight 80.739 kg Temp Pulse Resp BP Pulse Ox 98.0 F 100 17 165/96 96 01/15/21 07:00 01/15/21 07:00 01/15/21 07:00 01/15/21 09:48 01/15/21 07:00 Preop Diagnosis: Lumbar stenosis Proposed Procedure: Operation Date: 01/15/21 11:05 Proposed Procedures p Exploratory Laparotomy with release of small bowel obstruction(Not Applicable) - Jorge Luis Lambert MD Familial anesthetic complications: ocassional ponv Was Beta Cristy taken within 24 hours: Yes Was Clonidine taken within 24 hours: N/A Last intake: nPO > 8 hrs, but nG tube inplace Social: Social History: No alcohol and No tobacco Airway: Cervical ROM: WNL MP: 4 Dentition: Other (no teeth) Additional comments: large neck, small mouth opening CV/HEM: CV/HEM: Arrythmia (tachycardia) and HTN GI: GI: GERD Neuropsych: Neuropsych: CVA (2016) and Seizure Anesthetic Plan: ASA status: 3 Anesthesia: General Risk of > 500 ml blood loss (7ml/kg in children): No Meds/Allergies Current Medications: Current Medications Generic Name Dose Route Start Last Admin Trade Name Freq PRN Reason Stop Dose Admin Acetaminophen 650 mg 01/12/21 16:28 01/14/21 17:01 Acetaminophen 32 5 Mg Tablet PO 650 mg Q6H PRN Administration Mild Pain Or Temp >/= 101 Famotidine 20 mg 01/12/21 20:00 01/15/21 08:28 Famotidine 20 Mg /2 Ml Inj IVP 20 mg Q12H CALIN Administration Heparin Sodium (Be ef Lung) 5,000 unit 01/12/21 19:30 01/15/21 06:32 Heparin 5,000 Un it/Ml Inj 1 Ml SUBCUT 5,000 unit Q12H CALIN Administration Morphine Sulfate 2 - 4 mg 01/12/21 19:29 01/15/21 02:32 Morphine 4 Mg/Ml Sdv 1 Ml IVP 4 mg Q4H PRN Administration SEVERE PAIN Ondansetron HCl 4 mg 01/12/21 16:30 01/15/21 08:28 Ondansetron 2 Mg /Ml Sdv 2 Ml IVP 4 mg Q8H CALIN Administration Phenol 5 spray 01/12/21 19:15 01/13/21 00:57 Phenol Oral Spra y 177 Ml MUCOUS MEM 5 spray Q2H PRN Administration SORE THROAT PFSH Anesthesia PFSH: Medical History (Updated 01/12/21 @ 15:50 by BRI Staples) Depression with anxiety Fear of insects (Unknown) Specifically tics Herpes genitalia History of malignant melanoma Hot flashes HTN (hypertension) with goal to be determined Inappropriate sinus tachycardia Irritable bowel disease Long-term current use of opiate analgesic Lumbar radiculitis Major depressive disorder, recurrent, severe with psychotic symptoms Malignant hypertension Pain management contract signed Vaginal Discharge Surgical History (Updated 01/12/21 @ 19:19 by Jorge Luis Lambert MD) H/O tubal ligation (~2008) History of augmentation of both breasts (~2012) SILICONE IMPLANTS Hx of abdominoplasty (~2009) Hx of section (~2008) x 1 Hx of decompressive lumbar laminectomy x 2 -- first L5-S1 [facility] IN [place], [place]. Hx of hernia repair (~2012) ventral (patient thinks mesh was used) Hx of hysterectomy (~2008) CHRISTINA-- ovaries spared. Family History Other Anesthesia complication CAD (coronary artery disease) Cancer Chronic kidney disease (CKD) Dementia Diabetes Hypertension Psychiatric illness Stroke Suicide Denies family history of Clotting disorder Hyperlipidemia Bleeding disorder Family history of premature coronary artery disease Lung disease Social History Smoking and tobacco status: never smoked Alcohol intake: current Alcohol intake frequency: holidays/special occasions only Alcohol type: wine History of recent travel: No Data Anesthesia CBC & Chem 7: 01/15/21 04:13 01/15/21 04:13 Other Labs: Laboratory Results - last 48 hr 01/14/21 01/14/21 01/15/21 04:52 04:52 04:13 WBC 5.0 4.6 RBC 4.09 L 4.44 Hgb 12.0 13.3 Hct 36.2 L 40.0 MCV 88.5 90.1 MCH 29.3 30.0 MCHC 33.1 33.3 RDW 13.2 13.2 Plt Count 187 172 MPV 11.4 H 11.7 H Neut % (Auto) 58.6 66.5 Lymph % (Auto) 29.7 25.1 Gilchrist % (Auto) 10.1 7.4 Eos % (Auto) 1.0 0.6 Baso % (Auto) 0.2 0.0 Neut # (Auto) 2.90 3.07 Lymph # (Auto) 1.5 1.2 Gilchrist # (Auto) 0.5 0.3 Eos # (Auto) 0.1 0.0 Baso # (Auto) 0.0 0.0 Nucleated RBC % (auto) 0 0 Nucleated RBCs # 0.0 0.0 Sodium 138 Potassium 3.3 L Chloride 103 Carbon Dioxide 28 Anion Gap 10.3 BUN 9 Creatinine 0.9 GFR Calculation 65.2 L Glucose 121 H Calculated Osmolality 286 Calcium 7.7 L 01/15/21 04:13 WBC RBC Hgb Hct MCV MCH MCHC RDW Plt Count MPV Neut % (Auto) Lymph % (Auto) Gilchrist % (Auto) Eos % (Auto) Baso % (Auto) Neut # (Auto) Lymph # (Auto) Gilchrist # (Auto) Eos # (Auto) Baso # (Auto) Nucleated RBC % (auto) Nucleated RBCs # Sodium 139 Potassium 4.2 Chloride 106 Carbon Dioxide 24 Anion Gap 13.2 BUN 8 Creatinine 0.8 GFR Calculation 74.7 L Glucose 94 Calculated Osmolality 286 Calcium 8.4 L Cardiac Studies: No Data to Display
--- NOTE | 2021-01-15 11:40 | PM.OP ---
Operative Report Date of procedure: January 15, 2021 Pre-op Diagnosis: Small bowel obstruction. Post-op diagnosis: same (Secondary to adhesions.) Procedure Done: 1. Exploratory laparotomy with adhesiolysis. 2. Incidental appendectomy. Specimens removed/disposition: Appendix (incidental appendectomy). Surgeon: Jorge Luis Lambert Anesthesia: General Estimated blood loss (mL): 5 Complications: None. Condition: stable Disposition: PACU Procedure: The patient was brought to the operating room and was placed in a supine position on the operating room table. General endotracheal anesthesia was induced. A Montanez catheter was inserted by nursing. The abdomen was prepped and draped in a sterile fashion. A midline incision was carried out along the previous scars from the level just above the umbilicus to a level just below the umbilicus. Cautery was used to divide the subcutaneous tissue and the midline fascia and the peritoneal cavity was entered. The patient thought she had had some mesh placed in her previous hernia repairs, but none was ever clearly identified. She had an adhesion of the omentum near the midline below the incision that had been made. This was carefully freed using cautery and this allowed the omentum to be exteriorized and then the small bowel could be seen. It was dilated and very mildly hemorrhagic. This was easily mobilized out of the pelvis and upon mobilizing the bowel a clear demarcation was seen where the bowel had been occluded by an external structure as evidenced by an indentation and a color change back to normal pink distally; the more distal small bowel was obviously more decompressed, as well. No adhesions were present on the bowel itself. Fluid contents within the small bowel had already started moving distally through the site by the time the bowel was exteriorized for inspection. The fluid and air in the proximal small bowel was manipulated proximally into the stomach where it was evacuated with the nasogastric tube that was already in place. Palpation in the pelvis revealed two linear adhesions of fatty tissue in the pelvis creating potential internal hernias, both of which were taken down. The obstruction had occurred approximately a foot proximal to the ileocecal valve. I suspect the bowel had been somehow involved with one of the adhesions in the pelvis. The cecum was identified distally and appeared to be in good condition. The appendix was present and was easily accessible. For that reason an incidental appendectomy was decided upon. The mesoappendix was divided using cautery which was also used to maintain hemostasis. 2 separate ties of 2-0 Vicryl were placed at the base of the appendix and the appendix was excised. The appendiceal stump was briefly cauterized at the mucosal level. The bowel was returned to the abdomen and several liters of saline were used for irrigation. No other abnormalities were seen or palpated in the abdomen. Attention was directed towards closure. The midline fascia was closed using a running looped suture of #1 PDS. The subcutaneous tissue was irrigated and the skin was reapproximated using skin dayton. A sterile bandage was applied and the patient was taken to the recovery room in stable condition postoperatively.
[2021-01-15] MEDS: D5-NS 0.45% + KCL 20 mEq 20 MEQ/1,000 ML BAG 100 MEQ IV ×2 (13:12→23:02)
[2021-01-15] MEDS: ketorolac 30 mg/mL INJ IVP (13:15)
[2021-01-15] MEDS: levalbuterol 0.63 mg/3 mL Neb INHALATION ×3 (13:27→19:59)
--- NOTE | 2021-01-15 13:36 | ANE.PACU2 ---
Inpatient post-anesthesia follow up: Airway intact: Yes Vital signs: Temperature 98.0 F Pulse Rate [Right Radial] 105 Pulse Rate 90 Respiratory Rate 20 Blood Pressure [Or thostatic 106/74 Standing] Blood Pressure [Or thostatic 109/66 Sitting] Blood Pressure [Or thostatic 134/74 Lying] Blood Pressure [Ri ght Arm] 138/94 Blood Pressure 145/71 Pulse Oximetry 93 Oxygen Delivery Me thod [ Room Air Current Rate & Del brenda] Oxygen Delivery Me thod Room Air Oxygen Flow Rate 6 Fraction of Inspir ed Oxygen Hydration adequate: Yes Nausea and vomiting: No Pain level: 2 Mental status: Baseline
[2021-01-15] MEDS: HYDROcodone-acetaminophen 5-325 mg Tablet PO ×2 (16:32→20:26)
[2021-01-15] MEDS: ceFAZolin 1,000 MG in sodium chloride 0.9% (plus) 50 ML 100 MG IV (18:10)
--- NOTE | 2021-01-15 19:31 | PC.NURSE ---
Report to Sushma DECKER at this time.
[2021-01-16] VITALS (8 sets, daily range): BP systolic 138–163; BP diastolic 76–96; PULSE 85–100; RESP 17–22; TEMP 36.5–37; O2SAT 96–99
[2021-01-16] MEDS: ceFAZolin 1,000 MG in sodium chloride 0.9% (plus) 50 ML 100 MG IV ×2 (04:03→11:13)
[2021-01-16] MEDS: HYDROcodone-acetaminophen 5-325 mg Tablet PO ×2 (04:24→08:27)
[2021-01-16] MEDS: heparin 5,000 unit/mL INJ 1 mL 5000 UNIT SUBCUT (06:32)
[2021-01-16] MEDS: morphine 4 mg/mL SDV 1 mL IVP (06:35)
[2021-01-16 06:56] LABS: Basophils % 0.3 %; Eosinophils % 0.6 %; Hematocrit 40.5 % (37.0-47.0); Hemoglobin 12.3 g/dL (11.5-15.3); Lymphocytes # 1.9 10^3/uL (0.8-4.8); Lymphocytes % 29.1 %; Mean Corpuscular HGB Conc 30.4 g/dL (30.0-36.0); Mean Corpuscular Hemoglobin 30.4 pg (28.0-34.0); Mean Platelet Volume 11.2 fL (7.4-10.4); Monocytes # 0.4 10^3/uL (0.2-0.9); Monocytes % 6.5 %; Neutrophils # 4.05 10^3/uL (1.8-7.7); Nucleated Red Blood Cells % 0 %; Platelet Count 166 10^3/cmm (130-400); Red Blood Count 4.05 10^6/uL (4.1-5.3); Red Cell Distribution Width 13.5 % (12.1-15.1); White Blood Count 6.4 10^3/uL (4.0-10.0)
[2021-01-16 06:59] LABS: Blood Urea Nitrogen 8 mg/dL (6-20); Calcium 7.5 mg/dL (8.5-10.5); Carbon Dioxide 20 mmol/L (22-29); Chloride 107 mmol/L (98-107); Glomerular Filtration Rate 74.7 mL/min (90-130); Glucose 116 mg/dL (65-115); Osmolality Calculated 279 mOsm/kg (285-295); Sodium 135 mmol/L (136-145)
[2021-01-16 07:04] LABS: Anion Gap 11.9 (5-19); Potassium 3.9 mmol/L (3.5-5.1)
[2021-01-16] MEDS: levalbuterol 0.63 mg/3 mL Neb INHALATION (08:16)
[2021-01-16] MEDS: duloxetine 60 mg Capsule PO (08:27)
[2021-01-16] MEDS: D5-NS 0.45% + KCL 20 mEq 20 MEQ/1,000 ML BAG 100 MEQ IV (08:29)
[2021-01-16] MEDS: famotidine 20 mg/2 mL INJ IVP (08:34)
--- NOTE | 2021-01-16 09:38 | PM.PN ---
Subjective Subjective: Interval history: The patient reports that she is doing remarkably well. She had a bowel movement and has been passing flatus since her adhesiolysis yesterday. She says she has a little bit of discomfort and does not have a tremendous appetite yet, but is very anxious to try to go home. She mentions that she has only been taking oral pain medications. Vitals/I&O/Wt Last Vital Signs Temp 97.7 F 01/16/21 07:02 Pulse 98 01/16/21 08:21 Resp 17 01/16/21 08:16 BP 152/86 01/16/21 07:02 Pulse Ox 99 01/16/21 08:16 01/15/21 01/16/21 01/16/21 22:59 06:59 14:59 Intake Total 1348.333 / 1863.333 465 / 8666.455 7023 / 1185 Output Total 350 / 1900 Balance 1348.333 / -36.667 115 / -36.667 1185 / 1185 Physical Exam Narrative: EXAM NARRATIVE: The incision looks good. She does have some bowel sounds. Urinary Catheter Management^: Montanez: Cath Placed During This Visit: yes Reason for Continuing Indwelling Catheter: Other Urinary Catheter Date of Insertion: 01/15/21 Urinary Catheter Time of Insertion: 11:05 Data : 01/16/21 06:28 01/16/21 06:28 A&P Assessment and plan (1) Small bowel obstruction due to adhesions: Status post laparotomy with adhesiolysis on 01/15/2021. The patient appears to be doing well. I am going to discontinue her Montanez catheter. She would like to stick with a clear liquid diet for now. I am not necessarily opposed to her going home today as long as she is able to keep herself hydrated and is doing well on oral pain medication. We will see how the morning goes. Status: Acute Attestations Medical Necessity Statement*: See admitting service's notation. Coding Level of Care Code Acute [employer] Set Up Technician for 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 Diagnoses Small bowel obstruction due to adhesions K56.50
--- NOTE | 2021-01-16 12:16 | P.DS_ITS ---
Discharge Providers Date of Admission: 01/12/21 15:44 Date of Discharge: January 16, 2021 Attending Provider at Admission: Jg Cosby MD Attending Provider at Discharge: Poornima Mckeon Primary Care Provider: Krys Bailey DO Diagnoses at Discharge Discharge Diagnosis (1) Small bowel obstruction due to adhesions: Status: Resolved Reason for Visit Reason for Visit: N/V/D SINCE TUESDAY Hospital Course Hospital Course 55 year old female with PMH of HTN, MDD,came in with c/o nausea,multiple vomiting, and generalized abdominal pain started this Tuesday.Upon arrival in the ER she was worked up for above mention complain.She is complaining of intractable non bloody vomiting as well as multiple episodes watery diarrhea. Imaging studies: CT abdomen pelvis w con:High grade distal small bowel obstruction. Transition point RIGHT lower quadrant is probably due to an adhesion. Prior cholecystectomy and hysterectomy.Patient was seen by general surgery and taken to OR for Exploratory laparotomy with adhesiolysis. Incidental appendectomy. Stable post op course. Diet was advanced. Patient was cleared for discharge from general surgery and arranged for close outpatient follow up Physical Exam Narrative: EXAM NARRATIVE: general: alert, awake HEENT : NG removed Abd: Post op Chest: non-labored respiration ext; no edema Urinary Catheter Management^: [place]: Cath Placed During This Visit: yes, but has since been removed by the nurse Reason for Continuing Indwelling Catheter: Decision to DC Catheter Urinary Catheter Date of Insertion: 01/15/21 Urinary Catheter Time of Insertion: 11:05 Date Urinary Catheter Removed: 01/16/21 Time Urinary Catheter Discontinued: 10:25 Discharge Data Data Completed and Pending: Completed Studies During Hospitalization Category Date Time Status CT abdomen pelvis w con* [id number] Urge nt Cat Scan 01/12/21 12:[address] abdomen pelvis wo con [id number] Rout ine Cat Scan 01/15/21 06:30 Completed XR chest 1V kiya ble [id number] Routine Exams 01/14/21 23:42 Completed Pending at discharge Category Date Time Status Clostridioides Di fficile PCR Routin e Lab 01/12/21 12:58 Ordered Enteric Bacterial Panel by PCR Rout ine Lab 01/12/21 12:58 Ordered Enteric Parasite Panel by PCR Routi ne Lab 01/12/21 12:58 Ordered Immunochemical Fe syd OCB Routine Lab 01/12/21 12:58 Ordered Lactoferrin Routi ne Lab 01/12/21 12:58 Ordered Pathology: Surgic al [PTH] Routine Pth 01/15/21 11:57 Received Labs from last 24 hours 01/16/21 01/16/21 06:28 06:28 WBC 6.4 RBC 4.05 L Hgb 12.3 Hct 40.5 MCV 100.0 H MCH 30.4 MCHC 30.4 RDW 13.5 Plt Count 166 MPV 11.2 H Neut % (Auto) 63.0 Lymph % (Auto) 29.1 [place] % (Auto) 6.5 Eos % (Auto) 0.6 Baso % (Auto) 0.3 Neut # (Auto) 4.05 Lymph # (Auto) 1.9 [place] # (Auto) 0.4 Eos # (Auto) 0.0 Baso # (Auto) 0.0 Nucleated RBC % (a uto) 0 Nucleated RBCs # 0.0 Sodium 135 L Potassium 3.9 Chloride 107 Carbon Dioxide 20 L Anion Gap 11.9 BUN 8 Creatinine 0.8 GFR Calculation 74.7 L Glucose 116 H Calculated Osmolal ity 279 L Calcium 7.5 L Vitals: Last Vital Signs Temp 98.0 F 01/16/21 11:14 Pulse 97 01/16/21 11:14 Resp 18 01/16/21 11:14 BP 142/90 01/16/21 11:14 Pulse Ox 97 01/16/21 11:14 Discharge Plan Discharge Patient Disposition: Home Condition: Stable Prescriptions: New hydrocodone-acetaminophen 5-325 mg Tablet 1 tab PO Q4H PRN (Reason: Moderate To Severe Pain) Qty: 15 RF: 0 Continued diphenhydramine HCl 25 mg tablet 25 mg PO DAILY PRN (Reason: Headache) RF: 0 sumatriptan 5 mg/actuation spray,non-aerosol 20 mg INTRANASAL Q2H MDD 40mg in 24 hours PRN (Reason: migraine headache) Qty: 6 RF: 0 Aimovig Autoinjector 140 mg/mL auto-injector 140 mg SUBCUT .monthly Qty: 1 RF: 2 clonidine HCl 0.1 mg tablet 0.1 mg PO DAILY PRN (Reason: high bp) RF: 0 pantoprazole 40 mg tablet,delayed release (DR/EC) 40 mg PO DAILY@08 Qty: 90 RF: 0 pregabalin 100 mg capsule 100 mg PO TID@08,13,20 Qty: 90 RF: 0 acetaminophen [Tylenol Extra Strength] 500 mg Tablet 1,000 mg PO PRN RF: 0 acyclovir 400 mg tablet 400 mg PO TID PRN (Reason: herpes outbreak) Qty: 21 RF: 2 carvedilol 6.25 mg tablet 6.25 mg PO BID@08,20 RF: 0 estradiol 2 mg tablet 2 mg PO DAILY@08 RF: 0 promethazine 25 mg tablet 25 mg PO Q6H PRN (Reason: prn headache/migraine) Qty: 20 RF: 0 Excedrin Migraine 250-250-65 mg Tablet 2 tab PO PRN PRN (Reason: Migraine Headache) RF: 0 diltiazem HCl 300 mg capsule,extended release 24 hr 300 mg PO DAILY@08 RF: 0 ondansetron HCl [Zofran] 4 mg tablet 4 mg PO Q6H Qty: 10 RF: 0 Cymbalta 60 mg capsule,delayed release(DR/EC) 60 mg PO DAILY@0800 RF: 0 Held furosemide 40 mg tablet See Rx Instructions .ROUTE .COMPLEX RF: 0 Hold Instructions: Resume on 01/26/21. potassium chloride [Klor-Con 10] 10 mEq tablet extended release See Rx Instructions .ROUTE .COMPLEX RF: 0 Hold Instructions: Resume on 01/26/21. resume when you restart lasix losartan-hydrochlorothiazide 100-25 mg tablet 1 tab PO DAILY@0800 RF: 0 Hold Instructions: Resume on 01/26/21. Discharge Orders: Discharge Order (Routine); Ordered 01/16/21 Ordered By: Poornima Mckeon Referrals: Jorge Luis Lambert MD [Physician] - 2 weeks (Please call Dr. Lambert's office on Tuesday to schedule an appointment to be seen in 10-14 days.) Krys Bailey DO [Primary Care Provider] - 01/27/21 11:00 am (You have an appointment with Dr. Bailey on January 27 at 11:00 AM.) Discharge Diet: Advance as tolerated Discharge Activity: Limit activity as instructed Patient Instructions: Hydrocodone/Acetaminophen (By mouth), Hypokalemia (DC), Hypertension (DC), Bowel Obstruction (DC) Activity Restrictions/Additional Instructions: 1. Discharge to home today. 2. Appointment to see Dr. Lambert in 10-14 days as above. 3. May shower at home, okay to get incision wet. 4. [place] 5/325 1-2 tablets by mouth every 5 hours as needed for pain. #30, no refills. No lifting over 20 pounds, no repetitive bending or twisting, no strenuous pushing / pulling or other heavy activity. Ambulate regularly. May go up and down steps if needed. Discharge Attestations Time Spent in Discharge Care*: greater than 30 min Specific Discharge Activities: educating patient, educating and/or supporting family/caregiver, discussing with pcp/other providers, discussing with child support case officer/social workers/dc planners, documenting/other paperwork and evaluating patient/reviewing data Status at Discharge: Cognitive status at discharge: cognitively intact , Functional status at discharge: independent ambulation Overall status at discharge: patient is progressing back to baseline Quality Metrics Clinical Quality Measures During this hospital stay, did patient experience: None Coding Level of Care Code Acute Chg DC note Diagnoses Small bowel obstruction due to adhesions K56.50
[2021-01-16] MEDS: ondansetron 2 mg/ML SDV 2 mL 4 MG IVP (12:19)
--- NOTE | 2021-01-16 13:29 | PC.CHAP ---
Pastoral Care Encounter/Spiritual Assessment Type of Contact [] Declined seafood process worker visit [] Patient/Family/Request visit [] Outpatient visit [xx] Follow-up visit [] Physician referral [] Code/Alert [xx] Routine visit [] Staff referral [] Actively dying [] Patient sleeping [] Family support [] [] Out of room [] Palliative care [] [] Receiving care in room [] Pre-surgical visit [] Trauma [xx] Long length of stay [] ICU visit [] Other: Relational/Emotional Strength [xx] Patient feels connected with others/family/visitors/staff [] Distress [] Loneliness/isolation [] Abandonment Spirituality of Patient [xx] Person of Bernarda [] Attends Confucianism of their Bernarda [xx] Believes in Prayer [xx] Reads Bible or Bahai materials [] There are Spiritual issues to be addressed Rn Iv Therapy Interventions [xx] Prayer [xx] Active listening [xx] Non-anxious presence [] Spiritual/emotional support [] Crisis/trauma care [] Spiritual counseling [] Bereavement support [] Provided bereavement packet [] Provided Bible/devotional materials [] Provided toy/stuffed animal, coloring book to patient or family member [] Provided Communion [] Anointing/[place] [] Salvation [xx] Completed spiritual assessment [] Other: Impact on Illness or Injury [] Angry [] Fearful [] Anxious [] Often cries [] Exhaustion [] Unable to work [] Unable to attend islam [] Unable to walk/stand [] Unable to read [] Unable to drive [] Unable to eat/drink [] Unable to sleep [] Unable to be with family [] Patient intubated [] Other: Summary Patient's daughter present as patient expects to be discharged later today. She stated she feels much better. Time spent with patient 6 minutes
--- NOTE | 2021-01-16 13:41 | PC.NURSE ---
discharge instructions were discussed and post op education reviewed with the patient. IV was removed tip intact, bleeding controlled with 2x2, patient tolerated well. patient was taken by wheelchair to private vehicle of daughter with discharge instructions and hard copy of prescription narcotic to be filled.
== END 2021-01-16 13:10 | disposition home or self-care (01) | DRG 336 ==
LOC: ER 15:50 → MEDSURG 16:32
PROVIDERS: Emergency Medicine; Surgery; Admitting Provider Internal Medicine; Emergency Provider Physician Assistant; PCP Family Medicine; Visit Provider Hospitalist
PROC: 0DNU0ZZ Release Omentum, Open Approach (ICD-10-PCS; CPT 49000; principal; 2021-01-15 10:45)
PROC: 0DNU0ZZ Release Omentum, Open Approach (ICD-10-PCS; CPT 44950; 2021-01-15 10:45)
DX: K56.50 Intestinal adhesions [bands], unspecified as to partial versus complete obstruction (principal); F33.3 Major depressive disorder, recurrent, severe with psychotic symptoms; I10 Essential (primary) hypertension; F41.9 Anxiety disorder, unspecified; Z85.820 Personal history of malignant melanoma of skin; K58.9 Irritable bowel syndrome, unspecified; Z79.891 Long term (current) use of opiate analgesic; Z98.1 Arthrodesis status; E87.6 Hypokalemia; E66.9 Obesity, unspecified; Z68.33 Body mass index [BMI] 33.0-33.9, adult; G43.711 Chronic migraine without aura, intractable, with status migrainosus; N20.0 Calculus of kidney; Z79.890 Hormone replacement therapy
CPT/HCPCS: 12345; 36415; 51702; 71045; 74176; 74177; 80048; 80053; 81001; 83605; 83690; 83735; 85025; 88304; 94640; 96360; 96365; 96366; 96367; 96372; 96375; 99283; 99285; J0690; J1100; J1644; J1885; J2060; J2270; J2405; J2704; J2765; J3010; J3480; J3490; J7030; J7614; Q0169; Q9967

== ENCOUNTER 2021-01-28 20:08 | Emergency (ER) | payer MEDICARE, MEDICAID, SELFPAY ==
[2021-01-28 20:12] VITALS: BP 137/84; PULSE 81; RESP 18; TEMP 36.8; O2SAT 99; BMI 34.2
--- NOTE | 2021-01-28 20:21 | ED_ITS ---
HPI - Headache General: Chief Complaint: Headache Stated Complaint: severe migraine Time Seen by Provider: 01/28/21 20:16 Source: patient Mode of arrival: ambulatory Limitations: no limitations History of Present Illness: HPI Narrative: Patient is a 55-year-old female who presents to ED today with a migraine headache. Patient has a longstanding history of migraines and states her headache today feels identical. She has tried sumatriptan without relief. She tells me she is on Aimovig but missed the last month's dose. MD elicited complaint: headache and migraine Pertinent past history: migraines Onset (ago): day(s) Onset description: gradually Exacerbating factors: light and noise Relieving factors: nothing Associated symptoms: Reports nausea; Deny chest pain, confusion, fever(s), rash or vomiting Treatments prior to arrival: migraine medication Review of Systems Const: Denies: fever(s), chills, body aches or fatigue Eyes: Reports: photophobia; Denies: change in vision, blurry vision, floaters or seeing flashes ENMT: Denies: odynophagia Card: Denies: chest pain Resp: Denies: dyspnea GI: Reports: nausea; Denies: vomiting Musc: Denies: neck pain, back pain or joint pain Skin/Breast: Denies: rash Neuro: Reports: headache(s); Denies: numbness in extremities, weakness in extremities, lack of coordination, difficulty walking, frequent falls, dizziness, vertigo, confusion or Slurred speech present [facility] ED PFSH: Medical History Depression with anxiety Fear of insects (Unknown) Specifically tics Herpes genitalia History of malignant melanoma Hot flashes HTN (hypertension) with goal to be determined Inappropriate sinus tachycardia Irritable bowel disease Long-term current use of opiate analgesic Lumbar radiculitis Major depressive disorder, recurrent, severe with psychotic symptoms Malignant hypertension Pain management contract signed Vaginal Discharge Surgical History H/O tubal ligation (~2008) History of augmentation of both breasts (~2012) SILICONE IMPLANTS Hx of abdominoplasty (~2009) Hx of section (~2008) x 1 Hx of decompressive lumbar laminectomy x 2 -- first L5-S1 [facility] IN [place], [place]. Hx of hernia repair (~2012) ventral (patient thinks mesh was used) Hx of hysterectomy (~2008) CHRISTINA-- ovaries spared. Intra-abdominal adhesions adhesiolysis / incidental appendectomy Family History Other Anesthesia complication CAD (coronary artery disease) Cancer Chronic kidney disease (CKD) Dementia Diabetes Hypertension Psychiatric illness Stroke Suicide Denies family history of Clotting disorder Hyperlipidemia Bleeding disorder Family history of premature coronary artery disease Lung disease Social History Smoking and tobacco status: never smoked Alcohol intake: current Alcohol intake frequency: holidays/special occasions only Alcohol type: wine History of recent travel: No Physical Exam Const: COMMON NORMALS: no acute distress, patient oriented x3, no limitations and alert GENERAL APPEARANCE: cooperative ORIENTATION/CONSCIOUSNESS: Yes awake, Yes oriented to person, Yes oriented to place and Yes oriented to time HENMT: COMMON NORMALS: normocephalic and atraumatic HEAD & SCALP: normocephalic and atraumatic Neuro: BLAINE COMA SCALE: document GCS findings [place] coma scale eye opening: Spontaneous [place] coma scale verbal response: Orientated [place] coma scale motor response: Obey commands [place] coma scale total score: 15 COMMON NORMALS: patient oriented x3, CN's II-XII intact bilaterally, moves all extremities, no focal motor deficits, no sensory deficits noted and gait normal SENSORIUM/ORIENTATION: Yes alert, Yes oriented to person, Yes oriented to place and Yes oriented to time Skin: COMMON NORMALS: no rashes or lesions noted GENERAL SKIN EXAM: no rashes or lesions noted Course Vital Signs: Vital signs: Vital Signs Temperature 98.2 F 01/28/21 20:12 Pulse Rate 87 01/28/21 21:01 Respiratory Rate 16 01/28/21 21:01 Blood Pressure 137/84 01/28/21 20:12 Pulse Oximetry 98 01/28/21 21:01 MDM - Headache MDM Narrative: Medical decision making narrative: Headache down from a 06/19 to 01/17. She feels comfortable going home. Discharge Plan Discharge Patient Disposition: Home Clinical Impression: Migraine Qualifiers: Migraine type: without aura Status migrainosus presence: without status migrainosus Intractability: not intractable Qualified Code(s): G43.009 - Migraine without aura, not intractable, without status migrainosus Condition: Stable Prescriptions: No Action diphenhydramine HCl 25 mg tablet 25 mg PO DAILY PRN (Reason: Headache) RF: 0 sumatriptan 5 mg/actuation spray,non-aerosol 20 mg INTRANASAL Q2H MDD 40mg in 24 hours PRN (Reason: migraine headache) Qty: 6 RF: 0 clonidine HCl 0.1 mg tablet 0.1 mg PO DAILY PRN (Reason: high bp) RF: 0 pantoprazole 40 mg tablet,delayed release (DR/EC) 40 mg PO DAILY@08 Qty: 90 RF: 0 pregabalin 100 mg capsule 100 mg PO TID@08,,20 Qty: 90 RF: 0 acetaminophen [Tylenol Extra Strength] 500 mg Tablet 1,000 mg PO PRN PRN (Reason: Pain) RF: 0 furosemide 40 mg tablet See Rx Instructions .ROUTE .COMPLEX RF: 0 Hold Instructions: Resume on 01/26/21. carvedilol 6.25 mg tablet 6.25 mg PO BID@08,20 RF: 0 potassium chloride [Klor-Con 10] 10 mEq tablet extended release See Rx Instructions .ROUTE .COMPLEX RF: 0 Hold Instructions: Resume on 01/26/21. resume when you restart lasix estradiol 2 mg tablet 2 mg PO DAILY@08 RF: 0 promethazine 25 mg tablet 25 mg PO Q6H PRN (Reason: prn headache/migraine) Qty: 20 RF: 0 quetiapine 50 mg tablet 50 mg PO DAILY@0800 RF: 0 Aimovig Autoinjector 140 mg/mL auto-injector 140 mg SUBCUT Q30D RF: 0 Excedrin Migraine 250-250-65 mg Tablet 2 tab PO PRN PRN (Reason: Migraine Headache) RF: 0 diltiazem HCl 300 mg capsule,extended release 24 hr 300 mg PO DAILY@08 RF: 0 ondansetron HCl [Zofran] 4 mg tablet 4 mg PO Q6H Qty: 10 RF: 0 losartan-hydrochlorothiazide 100-25 mg tablet 1 tab PO DAILY@0800 RF: 0 Hold Instructions: Resume on 01/26/21. duloxetine [Cymbalta] 60 mg capsule,delayed release(DR/EC) 60 mg PO DAILY@0800 RF: 0 hydrocodone-acetaminophen 5-325 mg Tablet 1 tab PO Q4H PRN (Reason: Moderate To Severe Pain) Qty: 15 RF: 0 Discharge Orders: Discharge ED (Routine); Ordered 01/28/21 Ordered By: Emilia Loaiza Referrals: Krys Bailey DO [Primary Care Provider] - Patient Instructions: Headache - Migraine (Adult), Migraine Headache (ED) Coding Level of Care Code ED Finance Associate for Chg Fwd Exam Expanded Problem Focused
[2021-01-28] MEDS: sodium chloride 0.9% 1,000 ML 999 ML IV (20:41)
[2021-01-28] MEDS: metoclopramide 5 mg/mL SDV 2 mL 10 MG IVP (20:42)
[2021-01-28] MEDS: ketorolac 60 mg/2 mL INJ 30 MG IVP (20:47)
[2021-01-28] MEDS: diphenhydrAMINE 50 mg/mL SDV 1mL IVP (20:48)
[2021-01-28] MEDS: dexamethasone 10 mg/mL INJ 8 MG IV (20:50)
[2021-01-28 21:01] VITALS: PULSE 87; RESP 16; O2SAT 98
== END 2021-01-28 21:45 | disposition home or self-care (01) ==
PROVIDERS: Emergency Provider Physician Assistant; PCP Family Medicine
DX: G43.009 Migraine without aura, not intractable, without status migrainosus (principal); I10 Essential (primary) hypertension
CPT/HCPCS: 96361; 96374; 96375; 99283; J1100; J1200; J1885; J2765; J7030

== ENCOUNTER → 2021-02-02 08:19 | Outpatient (BNVA) | payer MEDICARE, MEDICAID, SELFPAY | PROVIDERS: PCP Family Medicine; Visit Provider Nurse Practitioner Psychiatric/Mental Health | DX: F33.3 Major depressive disorder, recurrent, severe with psychotic symptoms (principal); F40.218 Other animal type phobia | CPT/HCPCS: 99214 ==

== ENCOUNTER 2021-03-13 04:30 | Emergency (ER) | payer MEDICARE, MEDICAID, SELFPAY ==
[2021-03-13 04:31] VITALS: BP 143/76; PULSE 82; RESP 16; TEMP 36.6; O2SAT 97; BMI 31.9
--- NOTE | 2021-03-13 04:36 | W.ED.ABDPA2 ---
Documented by User: Urmila Pereyra MD 03/13/21 05:52 HPI - Abdominal Pain General: Chief Complaint: Abdominal Pain Stated Complaint: ABD PAIN Time Seen by Provider: 03/13/21 04:34 Source: patient Mode of arrival: ambulatory Limitations: no limitations History of Present Illness: HPI narrative: Anne is a 55-year-old female who has a history of small bowel obstructions in the past from adhesions. She states she had a surgery in January to have adhesions cut down. States that tonight roughly 2 hours ago she started having abdominal pain in the right side along with some diarrhea. States her pain is sharp in nature and rates it a 6 out of 10. She has had some nausea denies any vomiting. She denies any worsening improving factors. Associated Symptoms: Reports diarrhea; Denies chills, dysuria and fever(s) Review of Systems Const: Denies: fever(s), chills, body aches or change in appetite Eyes: Denies: blurry vision or eye discomfort ENMT: Denies: throat pain or dental pain Card: Denies: chest pain Resp: Denies: dyspnea GI: Reports: abdominal pain and diarrhea : Denies: dysuria Musc: Denies: neck pain or back pain Skin/Breast: Denies: rash Neuro: Denies: headache(s) Psych: Denies: depression Cecil/Lymph: Denies: easy bruising All/Imm: Denies: urticaria PFSH ED PFSH: Medical History (Updated 03/13/21 @ 07:22 by Moy Galvan DO) Depression with anxiety Fear of insects (Unknown) Specifically tics Herpes genitalia History of malignant melanoma Hot flashes HTN (hypertension) with goal to be determined Inappropriate sinus tachycardia Irritable bowel disease Long-term current use of opiate analgesic Lumbar radiculitis Major depressive disorder, recurrent, severe with psychotic symptoms Malignant hypertension Pain management contract signed Vaginal Discharge Surgical History H/O tubal ligation (~2008) History of augmentation of both breasts (~2012) SILICONE IMPLANTS Hx of abdominoplasty (~2009) Hx of section (~2008) x 1 Hx of decompressive lumbar laminectomy x 2 -- first L5-S1 [facility] IN [facility] [place] Hx of hernia repair (~2012) ventral (patient thinks mesh was used) Hx of hysterectomy (~2008) CHRISTINA-- ovaries spared. Intra-abdominal adhesions adhesiolysis / incidental appendectomy Family History Other Anesthesia complication CAD (coronary artery disease) Cancer Chronic kidney disease (CKD) Dementia Diabetes Hypertension Psychiatric illness Stroke Suicide Denies family history of Clotting disorder Hyperlipidemia Bleeding disorder Family history of premature coronary artery disease Lung disease Social History Smoking and tobacco status: never smoked Alcohol intake: current Alcohol intake frequency: holidays/special occasions only Alcohol type: wine History of recent travel: No Physical Exam Const: COMMON NORMALS: no acute distress, patient oriented x3 and healthy appearing HENMT: COMMON NORMALS: normocephalic and atraumatic HEAD & SCALP: normocephalic and atraumatic Eye: COMMON NORMALS: Equal, round and reactive pupils present and EOMs intact bilaterally PUPIL: Yes Equal, round and reactive pupils present Neck/C-Spine: COMMON NORMALS: full ROM and supple Chest: COMMONS NORMALS: normal inspection of the chest and normal palpation of entire chest wall Resp: COMMON NORMALS: normal respiratory effort, No retractions, No use of accessory muscles and clear to auscultation bilaterally AUSCULTATION: clear to auscultation bilaterally Cardio: COMMON NORMALS: regular rate, regular rhythm and No murmurs present (Cardio) RATE: regular rate RHYTHM: regular rhythm GI: COMMON NORMALS: Normal to inspection, nondistended, normoactive bowel sounds present, Soft to palpation and no masses PALPATION: Yes Soft to palpation OTHER: Right-sided tenderness. Patient has a incisional scar to mid abdomen that is healing well Extremity: COMMON NORMALS: normal to inspection and full ROM Neuro: COMMON NORMALS: patient oriented x3, moves all extremities and no focal motor deficits Psych: COMMON NORMALS: mental status grossly normal, Normal thought process present and cooperative THOUGHT PROCESS: Normal thought process present Skin: COMMON NORMALS: no rashes or lesions noted and no wounds GENERAL SKIN EXAM: no rashes or lesions noted Course Vital Signs: Vital signs: Vital Signs Temperature 97.9 F 03/13/21 04:31 Pulse Rate 94 03/13/21 05:59 Respiratory Rate 16 03/13/21 05:59 Blood Pressure 134/85 03/13/21 05:59 Pulse Oximetry 98 03/13/21 05:59 MDM - Abdominal Pain Lab Data: Labs: Lab Results 03/13/21 03/13/21 03/13/21 Range/Units 04:41 04:41 05:17 WBC 8.2 (4.0-10.0) 10^3/ uL RBC 4.71 (4.1-5.3) 10^6/u L Hgb 13.8 (11.5-15.3) g/dL Hct 40.3 (37.0-47.0) % MCV 85.6 (81-99) fL MCH 29.3 (28.0-34.0) pg MCHC 34.2 (30.0-36.0) g/dL RDW 13.4 (12.1-15.1) % Plt Count 244 (130-400) 10^3/c mm MPV 11.8 H (7.4-10.4) fL Neut % (Auto) 64.4 % Lymph % (Auto) 28.7 % Schoolcraft % (Auto) 5.4 % Eos % (Auto) 0.6 % Baso % (Auto) 0.5 % Neut # (Auto) 5.30 (1.8-7.7) 10^3/u L Lymph # (Auto) 2.4 (0.8-4.8) 10^3/u L Schoolcraft # (Auto) 0.4 (0.2-0.9) 10^3/u L Eos # (Auto) 0.1 (0.0-0.8) 10^3/u L Baso # (Auto) 0.0 (0.0-0.1) 10^3/u L Nucleated RBC % (a uto) 0 % Nucleated RBCs # 0.0 /100WBC Sodium 140 (136-145) mmol/L Potassium 2.8 L* (3.5-5.1) mmol/L Chloride 98 (98-107) mmol/L Carbon Dioxide 31 H (22-29) mmol/L Anion Gap 13.8 (5-19) BUN 18 (6-20) mg/dL Creatinine 0.8 (0.5-0.9) mg/dL GFR Calculation 74.7 L (90-130) mL/min Glucose 123 H (65-115) mg/dL Calculated Osmolal ity 293 (285-295) mOsm/k g Calcium 8.6 (8.5-10.5) mg/dL Total Bilirubin 0.5 (0.15-1.2) mg/dL AST 19 (0-32) U/L ALT 22 (0-33) U/L Alkaline Phosphata se 113 H (35-105) IU/L Total Protein 6.8 (6.6-8.7) g/dL Albumin 3.8 (3.5-5.2) g/dL Globulin 3.0 (1.3-4.6) g/dL Lipase 109 H (13-60) U/L Urine Color Yellow (Yellow) Urine Appearance Clear (CLEAR) Urine pH 6 (5-7) Ur Specific Gravit y 1.015 (1.005-1.030) Urine Protein Neg (Negative) Urine Glucose (UA) Norm (Normal) Urine Ketones Negative (Negative) Urine Blood Neg (Negative) Urine Nitrate Negative (Negative) Urine Bilirubin 1+ H (Negative) Prot Sulfosalicyli c Acd Negative (Negative) Urine Urobilinogen Norm (Negative) mg/dL Ur Leukocyte Estelle ase Negative (Negative) Discharge Plan Discharge Patient Disposition: Home Clinical Impression: Irritable bowel syndrome, Pancreatitis, Hypokalemia Condition: Stable Prescriptions: New hydrocodone-acetaminophen 5-325 mg tablet 1 tab PO Q6H PRN (Reason: pain) Qty: 15 RF: 0 Zofran 4 mg tablet 4 mg PO Q6H PRN (Reason: nausea and vomiting) Qty: 20 RF: 0 potassium chloride 20 mEq tablet extended release 20 meq PO BID Qty: 10 RF: 0 No Action diphenhydramine HCl 25 mg tablet 25 mg PO DAILY PRN (Reason: Headache) RF: 0 sumatriptan 5 mg/actuation spray,non-aerosol 20 mg INTRANASAL Q2H MDD 40mg in 24 hours PRN (Reason: migraine headache) Qty: 6 RF: 0 clonidine HCl 0.1 mg tablet 0.1 mg PO DAILY PRN (Reason: high bp) RF: 0 ondansetron HCl [Zofran] 4 mg tablet 4 mg PO Q6H PRNRF: 0 duloxetine [Cymbalta] 60 mg capsule,delayed release(DR/EC) 60 mg PO .morning Qty: 30 RF: 3 pregabalin 100 mg capsule 100 mg PO TID@08,13,20 Qty: 90 RF: 0 Aimovig Autoinjector 140 mg/mL auto-injector 140 mg SUBCUT Q30D Qty: 1 RF: 2 pantoprazole 40 mg tablet,delayed release (DR/EC) 40 mg PO DAILY@08 Qty: 90 RF: 1 diltiazem HCl 300 mg capsule,extended release 24 hr 300 mg PO DAILY@08 Qty: 90 RF: 0 estradiol 2 mg tablet See Rx Instructions .ROUTE .COMPLEX Qty: 80 RF: 0 acetaminophen [Tylenol Extra Strength] 500 mg Tablet 1,000 mg PO PRN PRN (Reason: Pain) RF: 0 carvedilol 6.25 mg tablet 6.25 mg PO BID@08,20 RF: 0 promethazine 25 mg tablet 25 mg PO Q6H PRN (Reason: prn headache/migraine) Qty: 20 RF: 0 Excedrin Migraine 250-250-65 mg Tablet 2 tab PO PRN PRN (Reason: Migraine Headache) RF: 0 losartan-hydrochlorothiazide 100-25 mg tablet 1 tab PO DAILY@0800 RF: 0 Hold Instructions: Resume on 01/26/21. Discharge Orders: Discharge ED (Routine); Ordered 03/13/21 Ordered By: Moy Galvan Referrals: Krys Bailey DO [Primary Care Provider] - Discharge Diet: Clear Liquid Discharge Activity: Increase activity as tolerated Patient Instructions: Opioid Safety Activity Restrictions/Additional Instructions: Clear liquid diet for 48 hours then advance to simple carbohydrates. Nausea and pain medications as needed. Follow-up with Dr. Bailey within a week to review abnormal findings on the CT you may benefit from further evaluation including endoscopy. Sign Out Sign Out Data: Patient Sign Out occurred on 03/13/21 at 06:09. Patient's care was discussed, and care was transferred from to Moy Galvan DO. Coding Level of Care Code ED Network Operations Technician for Chg Fwd Exam Comprehensive Documented by User: Moy Galvan DO 03/13/21 07:24 HPI - Abdominal Pain General: Chief Complaint: Abdominal Pain Stated Complaint: ABD PAIN Time Seen by Provider: 03/13/21 04:34 [facility] ED PFSH: Medical History (Updated 03/13/21 @ 07:22 by Moy Galvan DO) Depression with anxiety Fear of insects (Unknown) Specifically tics Herpes genitalia History of malignant melanoma Hot flashes HTN (hypertension) with goal to be determined Inappropriate sinus tachycardia Irritable bowel disease Long-term current use of opiate analgesic Lumbar radiculitis Major depressive disorder, recurrent, severe with psychotic symptoms Malignant hypertension Pain management contract signed Vaginal Discharge Surgical History H/O tubal ligation (~2008) History of augmentation of both breasts (~2012) SILICONE IMPLANTS Hx of abdominoplasty (~2009) Hx of section (~2008) x 1 Hx of decompressive lumbar laminectomy x 2 -- first L5-S1 [facility] [place]. Hx of hernia repair (~2012) ventral (patient thinks mesh was used) Hx of hysterectomy (~2008) CHRISTINA-- ovaries spared. Intra-abdominal adhesions adhesiolysis / incidental appendectomy Family History Other Anesthesia complication CAD (coronary artery disease) Cancer Chronic kidney disease (CKD) Dementia Diabetes Hypertension Psychiatric illness Stroke Suicide Denies family history of Clotting disorder Hyperlipidemia Bleeding disorder Family history of premature coronary artery disease Lung disease Social History Smoking and tobacco status: never smoked Alcohol intake: current Alcohol intake frequency: holidays/special occasions only Alcohol type: wine History of recent travel: No Course Vital Signs: Vital signs: Vital Signs Temperature 97.9 F 03/13/21 04:31 Pulse Rate 94 03/13/21 05:59 Respiratory Rate 16 03/13/21 05:59 Blood Pressure 134/85 03/13/21 05:59 Pulse Oximetry 98 03/13/21 05:59 MDM - Abdominal Pain MDM Narrative: Medical decision making narrative: Patient is feeling significantly better. Again her p.o. potassium which she is tolerated well. Fluids also seem to help. There are some potential skip lesions on her CT with absence of 7-year-old fat. She needs further evaluation potentially including endoscopy for irritable bowel disease Crohn's/ulcerative colitis. Her lipase is elevated however she only has mild pain in the left upper quadrant. We discussed observation versus discharging home she would prefer to go home. Gave her antiemetics and pain medications clear liquid diet for 24 hours and advance as tolerated if has worsening pain or recurrence of diarrhea or vomiting that is uncontrollable return to the emergency room Lab Data: Labs: Lab Results 03/13/21 03/13/21 03/13/21 Range/Units 04:41 04:41 05:17 WBC 8.2 (4.0-10.0) 10^3/ uL RBC 4.71 (4.1-5.3) 10^6/u L Hgb 13.8 (11.5-15.3) g/dL Hct 40.3 (37.0-47.0) % MCV 85.6 (81-99) fL MCH 29.3 (28.0-34.0) pg MCHC 34.2 (30.0-36.0) g/dL RDW 13.4 (12.1-15.1) % Plt Count 244 (130-400) 10^3/c mm MPV 11.8 H (7.4-10.4) fL Neut % (Auto) 64.4 % Lymph % (Auto) 28.7 % Schoolcraft % (Auto) 5.4 % Eos % (Auto) 0.6 % Baso % (Auto) 0.5 % Neut # (Auto) 5.30 (1.8-7.7) 10^3/u L Lymph # (Auto) 2.4 (0.8-4.8) 10^3/u L Schoolcraft # (Auto) 0.4 (0.2-0.9) 10^3/u L Eos # (Auto) 0.1 (0.0-0.8) 10^3/u L Baso # (Auto) 0.0 (0.0-0.1) 10^3/u L Nucleated RBC % (a uto) 0 % Nucleated RBCs # 0.0 /100WBC Sodium 140 (136-145) mmol/L Potassium 2.8 L* (3.5-5.1) mmol/L Chloride 98 (98-107) mmol/L Carbon Dioxide 31 H (22-29) mmol/L Anion Gap 13.8 (5-19) BUN 18 (6-20) mg/dL Creatinine 0.8 (0.5-0.9) mg/dL GFR Calculation 74.7 L (90-130) mL/min Glucose 123 H (65-115) mg/dL Calculated Osmolal ity 293 (285-295) mOsm/k g Calcium 8.6 (8.5-10.5) mg/dL Total Bilirubin 0.5 (0.15-1.2) mg/dL AST 19 (0-32) U/L ALT 22 (0-33) U/L Alkaline Phosphata se 113 H (35-105) IU/L Total Protein 6.8 (6.6-8.7) g/dL Albumin 3.8 (3.5-5.2) g/dL Globulin 3.0 (1.3-4.6) g/dL Lipase 109 H (13-60) U/L Urine Color Yellow (Yellow) Urine Appearance Clear (CLEAR) Urine pH 6 (5-7) Ur Specific Gravit y 1.015 (1.005-1.030) Urine Protein Neg (Negative) Urine Glucose (UA) Norm (Normal) Urine Ketones Negative (Negative) Urine Blood Neg (Negative) Urine Nitrate Negative (Negative) Urine Bilirubin 1+ H (Negative) Prot Sulfosalicyli c Acd Negative (Negative) Urine Urobilinogen Norm (Negative) mg/dL Ur Leukocyte Estelle ase Negative (Negative) Discharge Plan Discharge Patient Disposition: Home Clinical Impression: Irritable bowel syndrome, Pancreatitis, Hypokalemia Condition: Stable Prescriptions: New hydrocodone-acetaminophen 5-325 mg tablet 1 tab PO Q6H PRN (Reason: pain) Qty: 15 RF: 0 Zofran 4 mg tablet 4 mg PO Q6H PRN (Reason: nausea and vomiting) Qty: 20 RF: 0 potassium chloride 20 mEq tablet extended release 20 meq PO BID Qty: 10 RF: 0 No Action diphenhydramine HCl 25 mg tablet 25 mg PO DAILY PRN (Reason: Headache) RF: 0 sumatriptan 5 mg/actuation spray,non-aerosol 20 mg INTRANASAL Q2H MDD 40mg in 24 hours PRN (Reason: migraine headache) Qty: 6 RF: 0 clonidine HCl 0.1 mg tablet 0.1 mg PO DAILY PRN (Reason: high bp) RF: 0 ondansetron HCl [Zofran] 4 mg tablet 4 mg PO Q6H PRNRF: 0 duloxetine [Cymbalta] 60 mg capsule,delayed release(DR/EC) 60 mg PO .morning Qty: 30 RF: 3 pregabalin 100 mg capsule 100 mg PO TID@08,13,20 Qty: 90 RF: 0 Aimovig Autoinjector 140 mg/mL auto-injector 140 mg SUBCUT Q30D Qty: 1 RF: 2 pantoprazole 40 mg tablet,delayed release (DR/EC) 40 mg PO DAILY@08 Qty: 90 RF: 1 diltiazem HCl 300 mg capsule,extended release 24 hr 300 mg PO DAILY@08 Qty: 90 RF: 0 estradiol 2 mg tablet See Rx Instructions .ROUTE .COMPLEX Qty: 80 RF: 0 acetaminophen [Tylenol Extra Strength] 500 mg Tablet 1,000 mg PO PRN PRN (Reason: Pain) RF: 0 carvedilol 6.25 mg tablet 6.25 mg PO BID@08,20 RF: 0 promethazine 25 mg tablet 25 mg PO Q6H PRN (Reason: prn headache/migraine) Qty: 20 RF: 0 Excedrin Migraine 250-250-65 mg Tablet 2 tab PO PRN PRN (Reason: Migraine Headache) RF: 0 losartan-hydrochlorothiazide 100-25 mg tablet 1 tab PO DAILY@0800 RF: 0 Hold Instructions: Resume on 01/26/21. Discharge Orders: Discharge ED (Routine); Ordered 03/13/21 Ordered By: Moy Galvan Referrals: Krys Bailey DO [Primary Care Provider] - Discharge Diet: Clear Liquid Discharge Activity: Increase activity as tolerated Patient Instructions: Opioid Safety Activity Restrictions/Additional Instructions: Clear liquid diet for 48 hours then advance to simple carbohydrates. Nausea and pain medications as needed. Follow-up with Dr. Bailey within a week to review abnormal findings on the CT you may benefit from further evaluation including endoscopy. Sign Out Sign Out Data: Patient Sign Out occurred on 03/13/21 at 06:09. Patient's care was discussed, and care was transferred from to Moy Galvan DO. Coding Level of Care Code ED Network Operations Technician for Chg Fwd Exam Comprehensive
[2021-03-13] MEDS: sodium chloride 0.9% 1,000 ML 999 ML IV (04:47)
[2021-03-13] MEDS: ondansetron 2 mg/ML SDV 2 mL 4 MG IVP (04:48)
[2021-03-13 04:50] VITALS: RESP 16; O2SAT 96
[2021-03-13] MEDS: morphine 4 mg/mL SDV 1 mL IVP (04:50)
[2021-03-13 04:51] LABS: Basophils % 0.5 %; Eosinophils # 0.1 10^3/uL (0.0-0.8); Eosinophils % 0.6 %; Hematocrit 40.3 % (37.0-47.0); Hemoglobin 13.8 g/dL (11.5-15.3); Lymphocytes # 2.4 10^3/uL (0.8-4.8); Lymphocytes % 28.7 %; Mean Corpuscular HGB Conc 34.2 g/dL (30.0-36.0); Mean Corpuscular Hemoglobin 29.3 pg (28.0-34.0); Mean Corpuscular Volume 85.6 fL (81-99); Mean Platelet Volume 11.8 fL (7.4-10.4); Monocytes # 0.4 10^3/uL (0.2-0.9); Monocytes % 5.4 %; Neutrophils % 64.4 %; Nucleated Red Blood Cells % 0 %; Platelet Count 244 10^3/cmm (130-400); Red Blood Count 4.71 10^6/uL (4.1-5.3); Red Cell Distribution Width 13.4 % (12.1-15.1); White Blood Count 8.2 10^3/uL (4.0-10.0)
--- NOTE | 2021-03-13 04:59 | CTR_ITS ---
PROCEDURE INFORMATION: Exam: CT Abdomen And Pelvis With Contrast Exam date and time: 03/13/2021 5:15 AM Age: 55 years old Clinical indication: Abdominal pain; Prior surgery; Surgery type: Appy. Gb. Hysterctomy. Breast augmentation. Enteric adhesiolysis. ; Patient HX: C/O periumbilical pain. History of multiple sbo due to adhesions. ; Additional info: Abd pain TECHNIQUE: Imaging protocol: Computed tomography of the abdomen and pelvis with contrast. Radiation optimization: All CT scans at this facility use at least one of these dose optimization techniques: automated exposure control; mA and/or kV adjustment per patient size (includes targeted exams where dose is matched to clinical indication); or iterative reconstruction. Contrast material: OMNI 300; Contrast volume: 95 ml; Contrast route: INTRAVENOUS (IV); COMPARISON: CT abdomen pelvis wo con [id number] 01/15/2021 7:57 AM RADIATION DOSE METRICS: Total DLP (mGy-cm): 1639.07 FINDINGS: Tubes, catheters and devices: Interval disappearance of the enteric tube. Lungs: Interval slight dependent atelectasis. Continued calcified granuloma in the right lower lobe. Liver: Continued small focus of decreased density in the liver along the gallbladder fossa possibly due to scar. No enhancing liver mass. Gallbladder and bile ducts: Cholecystectomy again evident. Interval worsening of the mild extrahepatic biliary ductal dilatation and appearance of slight intrahepatic biliary ductal dilatation. Pancreas: Interval slight dilatation of the pancreatic duct, with its diameter in the neck being about 5 mm. Spleen: Still no splenomegaly. Adrenal glands: Still no adrenal mass. Kidneys and ureters: Continued very small stone in the upper right kidney. No interval hydronephrosis. No change in the calcification along or in the distal left ureter. Stomach and bowel: Continued increased fat in the ramsey of the terminal ileum and multiple other small bowel loops as well as the right colon. Interval disappearance of the moderate dilatation of numerous small bowel loops. Mild dilatation of a right lower anterior small bowel loop without obvious fat in its wall. Conceivable absence of mural fat in a short segment of the small bowel loop in the right lower abdomen connected to the terminal ileum. Appendix: Possible appendectomy. Intraperitoneal space: Still no free air. Interval decrease in the free fluid in the pelvis. Vasculature: Continued atherosclerosis. Still no aortic aneurysm. Better visualization currently of small varices along the ovaries, but still no ovarian varices. Lymph nodes: Calcified nodes in the right hilum again evident. No new enlarged nodes. Urinary bladder: Still no apparent disease of the small bladder. Reproductive: Hysterectomy again evident. 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 Prominent degeneration of the L5-S1 disc still present and continued suggestion of an extruded fragment inferior to it. Soft tissues: Bilateral breast implants again evident. Continued minimal supraumbilical ventral hernia containing fat. Interval disappearance of the evidence of recent anterior abdominal wall injections. Continued increased fat in the right rectus femoris muscle. CT/CT abdomen pelvis w con* [id number] IMPRESSION: 1. No current small-bowel obstruction. Continued mural fat in multiple small bowel loops including the terminal ileum and the right colon. Current suggestion of 2 segments of small bowel not containing mural fat indicating possible skip lesions and therefore the consideration of Crohn's disease. Interval decrease in the free fluid in the pelvis. Still no free air. 2. Interval slight biliary ductal dilatation and slight dilatation of the pancreatic duct, cause unclear. Cholecystectomy again evident. 3. Continued very small right renal stone. No change in the calcification along or in the distal left ureter. No interval hydronephrosis. 4. Interval disappearance of the enteric tube. 5. Small varices along the ovaries more visible than before. 6. 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 Extruded fragment inferior to the prominently degenerated L5-S1 disc still likely. Other findings detailed above. Radiation Dose CTDIVOL = (mGy): DLP = 1639.07 (mGy-cm)
[2021-03-13 05:06] LABS: Alanine Aminotransferase 22 U/L (0-33); Albumin Level 3.8 g/dL (3.5-5.2); Alkaline Phosphatase 113 IU/L (35-105); Anion Gap 13.8 (5-19); Aspartate Amino Transferase 19 U/L (0-32); Blood Urea Nitrogen 18 mg/dL (6-20); Calcium 8.6 mg/dL (8.5-10.5); Carbon Dioxide 31 mmol/L (22-29); Chloride 98 mmol/L (98-107); Glomerular Filtration Rate 74.7 mL/min (90-130); Glucose 123 mg/dL (65-115); Lipase 109 U/L (13-60); Osmolality Calculated 293 mOsm/kg (285-295); Sodium 140 mmol/L (136-145); Total Bilirubin 0.5 mg/dL (0.15-1.2); Total Protein 6.8 g/dL (6.6-8.7)
[2021-03-13 05:24] LABS: Add Urine Microscopic? NO; Charge for UA Resulting for Rev
[2021-03-13 05:29] VITALS: BP 145/69; PULSE 91; RESP 14; O2SAT 97
[2021-03-13 05:31] LABS: Bilirubin Urine 1+ (Negative); Blood Urine Neg (Negative); Glucose Urine UA Norm (Normal); Ketones Urine Negative (Negative); Leukocyte Esterase Urine Negative (Negative); Nitrate Urine Negative (Negative); Protein Urine Neg (Negative); Specific Gravity, Urine 1.015 (1.005-1.030); Sulfosalicylic Acid Urine Negative (Negative); Urine Appearance Clear (CLEAR); Urine Color Yellow (Yellow); Urobilinogen Urine Norm (Negative); pH Urine 6 (5-7)
[2021-03-13 05:35] LABS: Potassium 2.8 mmol/L (3.5-5.1)
[2021-03-13] MEDS: iohexol 300 mg/mL 100 mL Btl IV (05:47)
[2021-03-13 05:59] VITALS: BP 134/85; PULSE 94; RESP 16; O2SAT 98
[2021-03-13] MEDS: potassium chloride ER 20 mEq Tablet 40 MEQ PO (05:59)
[2021-03-13] MEDS: potassium chloride oral liq 20 mEq/15 mL UDC 40 MEQ PO (07:30)
[2021-03-13 07:31] VITALS: BP 110/71; PULSE 71; RESP 14; O2SAT 95
== END 2021-03-13 07:40 | disposition home or self-care (01) ==
PROVIDERS: Emergency Medicine; Emergency Provider Family Medicine; PCP Family Medicine
DX: K58.9 Irritable bowel syndrome, unspecified (principal); K85.90 Acute pancreatitis without necrosis or infection, unspecified; E87.6 Hypokalemia; I10 Essential (primary) hypertension
CPT/HCPCS: 74177; 80053; 81003; 83690; 85025; 96361; 96374; 96375; 99283; J2270; J2405; J7030; Q9967

== ENCOUNTER → 2021-03-16 08:01 | Outpatient (BNVA) | payer MEDICARE, MEDICAID, SELFPAY | PROVIDERS: PCP Family Medicine; Visit Provider Nurse Practitioner Psychiatric/Mental Health | DX: F33.3 Major depressive disorder, recurrent, severe with psychotic symptoms (principal); F40.218 Other animal type phobia | CPT/HCPCS: 99214 ==

== ENCOUNTER → 2021-03-18 15:04 | Outpatient (BNVA) | payer MEDICARE, MEDICAID, SELFPAY | PROVIDERS: PCP Family Medicine; Visit Provider Family Medicine | DX: E87.6 Hypokalemia (principal); K85.90 Acute pancreatitis without necrosis or infection, unspecified; K58.9 Irritable bowel syndrome, unspecified; J06.9 Acute upper respiratory infection, unspecified | CPT/HCPCS: 80048; 83690 ==

== ENCOUNTER → 2021-05-05 09:40 | Outpatient (BNVA) | payer MEDICARE, MEDICAID, SELFPAY | PROVIDERS: PCP Family Medicine; Visit Provider Specialist | DX: G40.909 Epilepsy, unspecified, not intractable, without status epilepticus (principal); G43.711 Chronic migraine without aura, intractable, with status migrainosus; F07.81 Postconcussional syndrome; M54.16 Radiculopathy, lumbar region | CPT/HCPCS: 99214 ==

== ENCOUNTER → 2021-05-11 13:04 | Outpatient (BNVA) | payer MEDICARE, MEDICAID, SELFPAY | PROVIDERS: PCP Family Medicine; Visit Provider Nurse Practitioner Psychiatric/Mental Health | DX: F33.3 Major depressive disorder, recurrent, severe with psychotic symptoms (principal); F40.218 Other animal type phobia | CPT/HCPCS: 99214 ==

== ENCOUNTER 2021-06-05 08:08 | Outpatient (CLI) | payer MEDICARE, MEDICAID, SELFPAY ==
--- NOTE | 2021-06-05 08:29 | FL_ITS ---
WS: [id number] Exam: FL small bowel series* [id number] Date/Time of Exam: 06/05/2021 8:30 AM Reason For Exam: IRRITABLE BOWEL SYNDROME WITHOUT DIARRHEA Fluoroscopy time: 0.4 minutes Preliminary survey of the abdomen shows no acute finding. Signs of prior cholecystectomy. Barium courses through the small bowel without obstruction. The mucosal pattern of the duodenum, jeju num and ileum appears normal. No sign of bowel loop herniation or displacement. Barium is noted in th e right colon at 1 hour 30 minutes Spot compression images of the ileocecal valve demonstrated no sig nificant abnormal finding. FL/FL small bowel series* [id number] IMPRESSION: 1. Unremarkable small bowel follow-through.
== END 2021-06-05 08:09 | disposition home or self-care (01) ==
PROVIDERS: PCP Family Medicine; Visit Provider Surgery
DX: K58.9 Irritable bowel syndrome, unspecified (principal)
CPT/HCPCS: 74250

== ENCOUNTER 2021-06-11 12:30 | Outpatient (CLI) | payer MEDICARE, MEDICAID, SELFPAY ==
--- NOTE | 2021-06-11 13:00 | XR_ITS ---
WS: [id number] SHOULDER RIGHT TECHNIQUE: 3 views of the right shoulder CLINICAL INFORMATION: chronic right shoulder pain COMPARISON: None. FINDINGS: Normal acromioclavicular joint. Normal glenohumeral joint. Acromion is normal in appearance. Normal g lenoid. No evidence of acute fracture dislocation. XR/XR shoulder RT min 2V* [id number] IMPRESSION: Normal right shoulder.
== END 2021-06-11 12:31 | disposition home or self-care (01) ==
PROVIDERS: PCP Family Medicine; Visit Provider Family Medicine
DX: M25.511 Pain in right shoulder (principal); G89.29 Other chronic pain
CPT/HCPCS: 73030

== ENCOUNTER → 2021-06-23 11:14 | Outpatient (BNVA) | payer MEDICARE, MEDICAID, SELFPAY | PROVIDERS: PCP Family Medicine; Visit Provider Nurse Practitioner Psychiatric/Mental Health | DX: F33.3 Major depressive disorder, recurrent, severe with psychotic symptoms (principal); F40.218 Other animal type phobia | CPT/HCPCS: 99214 ==

== ENCOUNTER 2021-06-28 15:10 | Emergency (ER) | payer MEDICARE, MEDICAID, SELFPAY ==
[2021-06-28] VITALS (8 sets, daily range): BP systolic 141–159; BP diastolic 74–85; PULSE 81; RESP 16; TEMP 36.7; O2SAT 95–98
--- NOTE | 2021-06-28 15:33 | ED_ITS ---
Documented by User: Kandis Banda PA-C 06/28/21 16:34 HPI - Headache General: Chief Complaint: Headache Stated Complaint: Headache Time Seen by Provider: 06/28/21 15:27 Source: patient Mode of arrival: ambulatory Limitations: no limitations History of Present Illness: HPI Narrative: 56-year-old female presents to the ER today for a migraine. Patient reports a history of migraines for which she sees Dr. Powell. Patient reports this started yesterday with a headache and has since progressed to a migraine. Patient reports she thinks this was triggered by a new medication she started on Tuesday. Patient reports the new medications called Saphris and is for the voices she hears. Patient reports she has tried everything at home to help with the migraine including ibuprofen, Tylenol, nasal spray, and caffeine. She reports no improvement in symptoms in that time. She reports nausea and also light sensitivity. Denies any aura. Patient denies that this is the worst headache she has ever had. Patient denies ear pain, runny nose, congestion, sore throat, chest pain, shortness of breath, and vomiting, diarrhea, constipation, change in bowel or bladder habits. MD elicited complaint: migraine Pertinent past history: migraines Onset (ago): day(s) (2) Onset description: gradually Location: generalized Severity: moderate Quality & Timing: throbbing and steady Relieving factors: nothing Associated symptoms: Reports nausea, photophobia and sound sensitivity; Deny chest pain, fever(s), rash or vomiting Review of Systems Const: Denies: fever(s), chills or fatigue Eyes: Reports: photophobia; Denies: change in vision or blurry vision ENMT: Denies: throat pain, nasal discharge or nasal congestion Card: Denies: chest pain, palpitations or edema Resp: Denies: dyspnea or wheezing GI: Reports: nausea; Denies: abdominal pain, vomiting, diarrhea or constipation Musc: Denies: neck pain or back pain Skin/Breast: Denies: rash Neuro: Reports: headache(s) Psych: Reports: auditory hallucinations PFSH ED PFSH: Medical History Depression with anxiety Fear of insects (Unknown) Specifically tics Herpes genitalia History of malignant melanoma Hot flashes HTN (hypertension) with goal to be determined Inappropriate sinus tachycardia Irritable bowel disease Long-term current use of opiate analgesic Lumbar radiculitis Major depressive disorder, recurrent, severe with psychotic symptoms Malignant hypertension Pain management contract signed Vaginal Discharge Surgical History H/O tubal ligation (~2008) History of augmentation of both breasts (~2012) SILICONE IMPLANTS Hx of abdominoplasty (~2009) Hx of section (~2008) x 1 Hx of decompressive lumbar laminectomy x 2 -- first L5-S1 [place], [place]. Hx of hernia repair (~2012) ventral (patient thinks mesh was used) Hx of hysterectomy (~2008) [facility]-- ovaries spared. Intra-abdominal adhesions adhesiolysis / incidental appendectomy Family History Other Anesthesia complication CAD (coronary artery disease) Cancer Chronic kidney disease (CKD) Dementia Diabetes Hypertension Psychiatric illness Stroke Suicide Denies family history of Clotting disorder Hyperlipidemia Bleeding disorder Family history of premature coronary artery disease Lung disease Social History Alcohol intake: current Alcohol intake frequency: holidays/special occasions only Alcohol type: wine History of recent travel: No Physical Exam Const: COMMON NORMALS: average body habitus, patient oriented x3, healthy appearing and alert; apparent distress (Minimal distress noted) GENERAL APPEARANCE: cooperative HENMT: COMMON NORMALS: normocephalic, Normal external nose present and Normal nasal mucous membranes and turbinates present HEAD & SCALP: normocephalic FACE & SINUS: normal facial exam NOSE: Normal external nose present and Normal nasal mucous membranes and turbinates present THROAT: posterior oropharynx normal Eye: COMMON NORMALS: Equal, round and reactive pupils present, EOMs intact bilaterally and conjunctivae normal CONJUNCTIVA: Yes conjunctivae normal PUPIL: Yes Equal, round and reactive pupils present DIRECT OPHTHALMOSCOPY: Yes photophobia Lymph: LYMPHATIC: no lymphadenopathy noted Chest: COMMONS NORMALS: normal inspection of the chest Resp: COMMON NORMALS: normal respiratory effort and No retractions EFFORT & INSPECTION: Yes able to speak in complete sentences Cardio: COMMON NORMALS: regular rate and regular rhythm RATE: regular rate RHYTHM: regular rhythm GI: COMMON NORMALS: Normal to inspection, nondistended, normoactive bowel sounds present, Soft to palpation and non-tender PALPATION: Yes Soft to palpation Extremity: COMMON NORMALS: normal to inspection and full ROM Neuro: COMMON NORMALS: patient oriented x3, moves all extremities, no focal motor deficits and gait normal SENSORIUM/ORIENTATION: Yes alert SPEECH: speech normal Psych: COMMON NORMALS: mental status grossly normal and Normal thought process present THOUGHT PROCESS: Normal thought process present Skin: COMMON NORMALS: no rashes or lesions noted GENERAL SKIN EXAM: no rashes or lesions noted Course ED course: Patient presents to the ER today for a migraine. She has a history of migraines and this is nothing out of the ordinary for her. Pain was not relieved with home medication so she came in today. She thinks this was triggered by new medication she started on Tuesday. Patient has nausea and photophobia along with some sound sensitivity but denies any aura. We will do fluids, Benadryl, Toradol, Zofran and see if this improves patient's symptoms. Reevaluation(s): Reevaluation #1: Pt reports improvement of migraine on pain scale from a 10 to a 7. Time: 16:34 Vital Signs: Vital signs: Vital Signs Temperature 98.1 F 06/28/21 15:21 Pulse Rate 81 06/28/21 15:21 Respiratory Rate 16 06/28/21 15:21 Blood Pressure 159/84 06/28/21 16:30 Pulse Oximetry 95 06/28/21 16:30 Critical Care Time Critical Care Time: Critical Care Time: No Discharge Plan Discharge Patient Disposition: Home Clinical Impression: Migraine headache Qualifiers: Migraine type: without aura Status migrainosus presence: without status migrainosus Intractability: not intractable Qualified Code(s): G43.009 - Migraine without aura, not intractable, without status migrainosus Condition: Stable Prescriptions: No Action diphenhydramine HCl 25 mg tablet 25 mg PO DAILY PRN (Reason: Headache) RF: 0 sumatriptan 5 mg/actuation spray,non-aerosol 20 mg INTRANASAL Q2H MDD 40mg in 24 hours PRN (Reason: migraine headache) Qty: 6 RF: 0 asenapine maleate [Saphris] 5 mg tablet, sublingual 5 mg sublingual .bedtime Qty: 14 RF: 1 trazodone 50 mg tablet 50 mg PO DIRECTED Qty: 30 RF: 1 clonidine HCl 0.1 mg tablet 0.1 mg PO DAILY PRN (Reason: high bp) RF: 0 Aimovig Autoinjector 140 mg/mL auto-injector 140 mg SUBCUT Q30D Qty: 1 RF: 5 duloxetine [Cymbalta] 60 mg capsule,delayed release(DR/EC) 60 mg PO .morning Qty: 30 RF: 3 meloxicam [Mobic] 15 mg tablet 15 mg PO DAILY Qty: 30 RF: 0 pantoprazole 40 mg tablet,delayed release (DR/EC) 40 mg PO DAILY@08 Qty: 90 RF: 1 pregabalin 100 mg capsule 100 mg PO TID@08,13,20 Qty: 90 RF: 1 estradiol 2 mg tablet See Rx Instructions .ROUTE .COMPLEX Qty: 30 RF: 0 diltiazem HCl 300 mg capsule,extended release 24 hr 300 mg PO DAILY@08 Qty: 90 RF: 3 furosemide [Lasix] 20 mg tablet 20 mg PO DAILY PRN (Reason: edema) Qty: 30 RF: 6 bumetanide 1 mg tablet 1 mg PO DAILY Qty: 30 RF: 3 potassium chloride 20 mEq tablet extended release 20 meq PO DAILY Qty: 30 RF: 6 acetaminophen [Tylenol Extra Strength] 500 mg Tablet 1,000 mg PO PRN PRN (Reason: Pain) RF: 0 carvedilol 6.25 mg tablet 6.25 mg PO BID@08,20 RF: 0 promethazine 25 mg tablet 25 mg PO Q6H PRN (Reason: prn headache/migraine) Qty: 20 RF: 0 Zofran 4 mg tablet 4 mg PO Q6H PRN (Reason: nausea and vomiting) Qty: 20 RF: 0 Excedrin Migraine 250-250-65 mg Tablet 2 tab PO PRN PRN (Reason: Migraine Headache) RF: 0 Discharge Orders: Discharge ED (Routine); Ordered 06/28/21 Ordered By: Emilia Loaiza Referrals: Roseanne Marin PA [Primary Care Provider] - Patient Instructions: Headache - Migraine (Adult), Migraine Headache (ED) Sign Out Sign Out Data: Patient Sign Out occurred on 06/28/21 at 16:59. Patient's care was discussed, and care was transferred from to [facility]. Coding Level of Care Code ED Sample Tester Grinder for Chg Fwd Exam Comprehensive Documented by User: [facility] 06/28/21 18:25 HPI - Headache General: Chief Complaint: Headache Stated Complaint: Headache Time Seen by Provider: 06/28/21 15:27 PFSH ED PFSH: Medical History Depression with anxiety Fear of insects (Unknown) Specifically tics Herpes genitalia History of malignant melanoma Hot flashes HTN (hypertension) with goal to be determined Inappropriate sinus tachycardia Irritable bowel disease Long-term current use of opiate analgesic Lumbar radiculitis Major depressive disorder, recurrent, severe with psychotic symptoms Malignant hypertension Pain management contract signed Vaginal Discharge Surgical History H/O tubal ligation (~2008) History of augmentation of both breasts (~2012) SILICONE IMPLANTS Hx of abdominoplasty (~2009) Hx of section (~2008) x 1 Hx of decompressive lumbar laminectomy x 2 -- first L5-S1 [facility] [place], [place]. Hx of hernia repair (~2012) ventral (patient thinks mesh was used) Hx of hysterectomy (~2008) [facility]-- ovaries spared. Intra-abdominal adhesions adhesiolysis / incidental appendectomy Family History Other Anesthesia complication CAD (coronary artery disease) Cancer Chronic kidney disease (CKD) Dementia Diabetes Hypertension Psychiatric illness Stroke Suicide Denies family history of Clotting disorder Hyperlipidemia Bleeding disorder Family history of premature coronary artery disease Lung disease Social History Alcohol intake: current Alcohol intake frequency: holidays/special occasions only Alcohol type: wine History of recent travel: No Course Vital Signs: Vital signs: Vital Signs Temperature 98.1 F 06/28/21 15:21 Pulse Rate 81 06/28/21 15:21 Respiratory Rate 16 06/28/21 15:21 Blood Pressure 159/84 06/28/21 16:30 Pulse Oximetry 95 06/28/21 16:30 MDM - Headache MDM Narrative: Medical decision making narrative: Patient is a nice 56-year-old here for complaints of a migraine headache. Patient has a longs tanding history of migraine headaches and states this headache feels similar. Care was assumed from Kandis Banda PA-C. Headache had decreased from a 10/10 to a 7/10 when I assumed care. Additional medications were given that lowered her headache to a 5/10. She was complaining of some tension in her neck therefore Norflex was ordered however patient refused this stating she feels well enough and would like to go home at this time. Strict return to ED precautions given. She states she will contact her neurologist Dr. Powell for further management. Discharge Plan Discharge Patient Disposition: Home Clinical Impression: Migraine headache Qualifiers: Migraine type: without aura Status migrainosus presence: without status migrainosus Intractability: not intractable Qualified Code(s): G43.009 - Migraine without aura, not intractable, without status migrainosus Condition: Stable Prescriptions: No Action diphenhydramine HCl 25 mg tablet 25 mg PO DAILY PRN (Reason: Headache) RF: 0 sumatriptan 5 mg/actuation spray,non-aerosol 20 mg INTRANASAL Q2H MDD 40mg in 24 hours PRN (Reason: migraine headache) Qty: 6 RF: 0 asenapine maleate [Saphris] 5 mg tablet, sublingual 5 mg sublingual .bedtime Qty: 14 RF: 1 trazodone 50 mg tablet 50 mg PO DIRECTED Qty: 30 RF: 1 clonidine HCl 0.1 mg tablet 0.1 mg PO DAILY PRN (Reason: high bp) RF: 0 Aimovig Autoinjector 140 mg/mL auto-injector 140 mg SUBCUT Q30D Qty: 1 RF: 5 duloxetine [Cymbalta] 60 mg capsule,delayed release(DR/EC) 60 mg PO .morning Qty: 30 RF: 3 meloxicam [Mobic] 15 mg tablet 15 mg PO DAILY Qty: 30 RF: 0 pantoprazole 40 mg tablet,delayed release (DR/EC) 40 mg PO DAILY@08 Qty: 90 RF: 1 pregabalin 100 mg capsule 100 mg PO TID@08,13,20 Qty: 90 RF: 1 estradiol 2 mg tablet See Rx Instructions .ROUTE .COMPLEX Qty: 30 RF: 0 diltiazem HCl 300 mg capsule,extended release 24 hr 300 mg PO DAILY@08 Qty: 90 RF: 3 furosemide [Lasix] 20 mg tablet 20 mg PO DAILY PRN (Reason: edema) Qty: 30 RF: 6 bumetanide 1 mg tablet 1 mg PO DAILY Qty: 30 RF: 3 potassium chloride 20 mEq tablet extended release 20 meq PO DAILY Qty: 30 RF: 6 acetaminophen [Tylenol Extra Strength] 500 mg Tablet 1,000 mg PO PRN PRN (Reason: Pain) RF: 0 carvedilol 6.25 mg tablet 6.25 mg PO BID@, RF: 0 promethazine 25 mg tablet 25 mg PO Q6H PRN (Reason: prn headache/migraine) Qty: 20 RF: 0 Zofran 4 mg tablet 4 mg PO Q6H PRN (Reason: nausea and vomiting) Qty: 20 RF: 0 Excedrin Migraine 250-250-65 mg Tablet 2 tab PO PRN PRN (Reason: Migraine Headache) RF: 0 Discharge Orders: Discharge ED (Routine); Ordered 06/28/21 Ordered By: Emilia Loaiza Referrals: Roseanne Marin PA [Primary Care Provider] - Patient Instructions: Headache - Migraine (Adult), Migraine Headache (ED) Sign Out Sign Out Data: Patient Sign Out occurred on 06/28/21 at 16:59. Patient's care was discussed, and care was transferred from to [facility]. Coding Level of Care Code ED Sample Tester Grinder for Melag Fwd Exam Comprehensive
[2021-06-28] MEDS: diphenhydrAMINE 50 mg/mL SDV 1mL 25 MG IVP ×2 (15:46→17:15)
[2021-06-28] MEDS: sodium chloride 0.9% 1,000 ML 999 ML IV (15:46)
[2021-06-28] MEDS: ondansetron 2 mg/ML SDV 2 mL 4 MG IVP (15:46)
[2021-06-28] MEDS: ketorolac 30 mg/mL INJ 15 MG IVP (15:46)
[2021-06-28] MEDS: dexamethasone 10 mg/mL INJ 6 MG IVP (17:15)
== END 2021-06-28 18:41 | disposition home or self-care (01) ==
PROVIDERS: Emergency Provider Physician Assistant; PCP Physician Assistant
DX: G43.009 Migraine without aura, not intractable, without status migrainosus (principal); I10 Essential (primary) hypertension
CPT/HCPCS: 96361; 96374; 96375; 96376; 99284; J1100; J1200; J1885; J2405; J7030

== ENCOUNTER → 2021-07-07 09:50 | Outpatient (BNVA) | payer MEDICARE, MEDICAID, SELFPAY | PROVIDERS: PCP Physician Assistant; Visit Provider Nurse Practitioner Psychiatric/Mental Health | DX: F33.3 Major depressive disorder, recurrent, severe with psychotic symptoms (principal); F40.218 Other animal type phobia | CPT/HCPCS: 99214 ==

== ENCOUNTER 2021-08-02 08:35 | Inpatient (IN) | payer MEDICARE, MEDICAID, SELFPAY ==
[2021-08-02] VITALS (7 sets, daily range): BP systolic 112–182; BP diastolic 64–91; PULSE 74–97; RESP 16–18; TEMP 36.6–37.3; O2SAT 94–98; BMI 33.0; BMI 34.5
--- NOTE | 2021-08-02 08:55 | ED_ITS ---
HPI - Abdominal Pain General: Chief Complaint: Nausea/Vomiting/Diarrhea Stated Complaint: EXPLOSIVE DIARRHEA-SIMILAR TO HX BOWEL BLOCKAGE Time Seen by Provider: 08/02/21 08:37 Source: patient Mode of arrival: ambulatory Limitations: no limitations History of Present Illness: HPI narrative: Patient is a nice 56-year-old female who presents to ED today with a complaint of abdominal pain, nausea, and countless episodes of diarrhea beginning around midnight last night. Patient states she has had a nonbloody diarrhea stool approximately every 30 minutes since onset. She states she took a promethazine so has not had any active episodes of vomiting-has been belching a lot. She has having diffuse abdominal cramping. Patient concerned stating the last time she had similar symptoms she was diagnosed with a bowel obstruction. She states she underwent surgery by Dr. Lambert (incidental appendectomy performed as well). Patient has had multiple abdominal surgeries including adhesiolysis, ventral hernia repair, laparoscopic hysterectomy, and cholecystectomy. MD elicited complaint: abdominal pain Onset (ago): hour(s) Pain Consistency: constant Location: Diffuse Severity: moderate Quality: cramping Radiation: none Migration to: no migration Relieving factors: nothing Associated Symptoms: Reports belching, GI cramping, diarrhea and nausea; Denies chills, dysuria, fever(s), heartburn, hematochezia, hematemesis, melena and vomiting Review of Systems Const: Denies: fever(s), chills, body aches, fatigue or malaise Card: Denies: chest pain Resp: Denies: dyspnea GI: Reports: abdominal pain, nausea, diarrhea, GI cramping and belching; Denies: vomiting, hematemesis, heartburn, hematochezia or melena : Denies: flank pain or dysuria Musc: Denies: neck pain or back pain Skin/Breast: Denies: rash Neuro: Denies: headache(s), numbness in extremities, weakness in extremities, sensory changes or dizziness PFS ED PFSH: Medical History (Updated 08/02/21 @ 10:48 by BRI Staples) Depression with anxiety Fear of insects (Unknown) Specifically tics Herpes genitalia History of malignant melanoma Hot flashes HTN (hypertension) with goal to be determined Inappropriate sinus tachycardia Irritable bowel disease Long-term current use of opiate analgesic Lumbar radiculitis Major depressive disorder, recurrent, severe with psychotic symptoms Malignant hypertension No pertinent past medical history neghx: dm,thyroid,dvt/pe PCP: Roseanne Marin Pain management contract signed Psychiatric care Surgical History (Updated 06/30/21 @ 12:00 by Krys Colón APN, JOHNATHON) Bowel obstruction (~01/15/21) surgical repair by DR. Lambert H/O tubal ligation (~2008) History of augmentation of both breasts (~2012) SILICONE IMPLANTS Hx of abdominoplasty (~2009) Hx of section (~2008) x 1 Hx of decompressive lumbar laminectomy ---2014 L5-S1 [place], [place]. ---10/20/2020 Revision; Dr Dalia ALBERT Hx of hernia repair (~2012) ventral (patient thinks mesh was used) Hx of hysterectomy (~2008) CHRISTINA-- ovaries spared. Intra-abdominal adhesions (~10/2020) adhesiolysis / incidental appendectomy-- at same time as bowel obstruction Family History Mother Breast cancer dx age unknown Grandmother Breast cancer Maternal--dx age 60's Sister No problems noted. Daughter Uterine cancer dx age 28 Other Cancer Diabetes Hypertension Psychiatric illness Stroke Suicide Denies family history of Colon cancer Ovarian cancer Lung disease Social History Alcohol intake: current Alcohol intake frequency: holidays/special occasions only Alcohol type: wine History of recent travel: No Physical Exam Const: COMMON NORMALS: no acute distress, patient oriented x3, no limitations and alert GENERAL APPEARANCE: cooperative NUTRITIONAL APPEARANCE: obese ORIENTATION/CONSCIOUSNESS: Yes awake, Yes oriented to person, Yes oriented to place and Yes oriented to time HENMT: COMMON NORMALS: normocephalic and atraumatic HEAD & SCALP: normocephalic and atraumatic Resp: COMMON NORMALS: normal respiratory effort and clear to auscultation bilaterally AUSCULTATION: clear to auscultation bilaterally Cardio: COMMON NORMALS: regular rate and regular rhythm RATE: regular rate RHYTHM: regular rhythm GI: COMMON NORMALS: Soft to palpation, No hepatosplenomegaly present and no masses INSPECTION: Yes normal to inspection AUSCULTATION: Yes Hypoactive bowel sounds present (decreased bowel sounds in LUQ/LLQ) PALPATION: Yes Soft to palpation, Yes Tenderness to palpation present (GI) (mainly throughout R side of abdomen) and Yes No hepatosplenomegaly present : COMMON NORMALS: Yes no CVA tenderness BLADDER/KIDNEY EXAM: Yes no CVA tenderness Back/Pelvis: COMMON NORMALS: no CVA tenderness Extremity: COMMON NORMALS: normal to inspection Neuro: COMMON NORMALS: patient oriented x3 SENSORIUM/ORIENTATION: Yes alert, Yes oriented to person, Yes oriented to place and Yes oriented to time Skin: COMMON NORMALS: no rashes or lesions noted GENERAL SKIN EXAM: no rashes or lesions noted Course Consultations: Consultation #1: Dr. Robles-recommends IV abx, stool cultures/c diff, and will graciously consult Consultation #2: Dr. Clifton-accepts admit Vital Signs: Vital signs: Vital Signs Temperature 99.1 F 08/02/21 08:43 Pulse Rate 87 08/02/21 12:23 Respiratory Rate 18 08/02/21 12:23 Blood Pressure 140/78 08/02/21 12:23 Pulse Oximetry 96 08/02/21 12:23 MDM - Abdominal Pain MDM Narrative: Medical decision making narrative: Patient here with almost identical presentation to when I saw her back in January and she was diagnosed with a high-grade bowel obstruction. She does have decreased bowel sounds to the left side of her abdomen. She is complaining of burping/belching and severe abdominal cramping. On her CT scan they did not see a specific point of obstruction. She had multiple loops of dilated fluid-filled bowel that the radiologist thought might be consistent with enterocolitis/inflammatory bowel disease. She is at high risk for developing a SBO with her multiple abdominal surgeries and known abdominal adhesions. Spoke with Dr. Venegas who feels patient most likely would benefit from hospitalization. Spoke to Dr. Robles who recommended IV antibiotics at this time as well as NG tube and with graciously consult on patient. Spoke with Dr. Clifton who accepts patient. Patient did refuse NG tube. Lab Data: Labs: Lab Results 08/02/21 08/02/21 08/02/21 09:00 09:00 09:00 WBC 9.7 10^3/uL 10^3/ uL (4.0-10.0) RBC 5.50 10^6/uL H 10 ^6/uL (4.1-5.3) Hgb 15.3 g/dL g/dL (11.5-15.3) Hct 46.4 % % (37.0-47.0) MCV 84.4 fl fl (81-99) MCH 27.8 pg L pg (28.0-34.0) MCHC 33.0 g/dL g/dL (30.0-36.0) RDW 13.1 % % (12.1-15.1) Plt Count 279 10^3/cmm 10^3 /cmm (130-400) MPV 10.6 fL H fL (7.4-10.4) Neut % (Auto) 80.5 % % Lymph % (Auto) 13.8 % % Sutton % (Auto) 4.8 % % Eos % (Auto) 0.5 % % Baso % (Auto) 0.2 % % Neut # (Auto) 7.78 10^3/uL H 10 ^3/uL (1.8-7.7) Lymph # (Auto) 1.3 10^3/uL 10^3/ uL (0.8-4.8) Sutton # (Auto) 0.5 10^3/uL 10^3/ uL (0.2-0.9) Eos # (Auto) 0.1 10^3/uL 10^3/ uL (0.0-0.8) Baso # (Auto) 0.0 10^3/uL 10^3/ uL (0.0-0.1) Nucleated RBC % (a uto) 0 % % Nucleated RBCs # 0.0 /100WBC /100W BC Sodium 140 mmol/L mmol/L (136-145) Potassium 3.8 mmol/L mmol/L (3.5-5.1) Chloride 102 mmol/L mmol/L (98-107) Carbon Dioxide 26 mmol/L mmol/L (22-29) Anion Gap 15.8 (5-19) BUN 16 mg/dL mg/dL (6-20) Creatinine 1.0 mg/dL H mg/dL (0.5-0.9) GFR Calculation 57.6 mL/min L mL/ min (90-130) Glucose 113 mg/dL mg/dL (65-115) Calculated Osmolal ity 292 mOsm/kg mOsm/ kg (285-295) Lactic Acid Calcium 9.5 mg/dL mg/dL (8.5-10.5) Total Bilirubin 0.3 mg/dL mg/dL (0.15-1.2) AST 10 U/L U/L (0-32) ALT 8 U/L U/L (0-33) Alkaline Phosphata se 102 IU/L IU/L (35-105) C-Reactive Protein 13.8 mg/L H mg/L (0.0-4.9) Total Protein 7.5 g/dL g/dL (6.6-8.7) Albumin 4.1 g/dL g/dL (3.5-5.2) Globulin 3.4 g/dL g/dL (1.3-4.6) Lipase 22 U/L U/L (13-60) Urine Color Urine Appearance Urine pH Ur Specific Gravit y Urine Protein Urine Glucose (UA) Urine Ketones Urine Blood Urine Nitrate Urine Bilirubin Urine Urobilinogen Ur Leukocyte Estelle ase Urine RBC Urine WBC Ur Squamous Epith Cells Amorphous Sediment Urine Bacteria 08/02/21 08/02/21 09:23 10:27 WBC RBC Hgb Hct MCV MCH MCHC RDW Plt Count MPV Neut % (Auto) Lymph % (Auto) Sutton % (Auto) Eos % (Auto) Baso % (Auto) Neut # (Auto) Lymph # (Auto) Sutton # (Auto) Eos # (Auto) Baso # (Auto) Nucleated RBC % (a uto) Nucleated RBCs # Sodium Potassium Chloride Carbon Dioxide Anion Gap BUN Creatinine GFR Calculation Glucose Calculated Osmolal ity Lactic Acid 1.2 mmol/L mmol/L (0.5-2.2) Calcium Total Bilirubin AST ALT Alkaline Phosphata se C-Reactive Protein Total Protein Albumin Globulin Lipase Urine Color Straw (Yellow) Urine Appearance Clear (CLEAR) Urine pH 6.5 (5-7) Ur Specific Gravit y 1.005 (1.005-1.030) Urine Protein Trace (Negative) Urine Glucose (UA) Norm (Normal) Urine Ketones Negative (Negative) Urine Blood Neg (Negative) Urine Nitrate Negative (Negative) Urine Bilirubin Neg (Negative) Urine Urobilinogen Norm mg/dL mg/dL (Negative) Ur Leukocyte Estelle ase Negative (Negative) Urine RBC None /hpf /hpf (0-2) Urine WBC None /hpf /hpf (0-5) Ur Squamous Epith Cells Rare /hpf /hpf (0-5) Amorphous Sediment Not Reportable Urine Bacteria Trace /hpf /hpf (NONE) Imaging Data ^: CT Abd/Pel: Radiologist's impression: [facility] [place], [place] [address]RD Scan ReportSigned Patient: Anne Payne AUnit #: [id number]: 1965Acct#:[id number]/Sex: 56 / FADM Date: 08/02/21Loc: ERRoom/Bed:Attending Dr: Ordering Provider/Ordering MD: Emilia Loaiza Date of Service: 08/02/21 Procedure(s): CT abdomen pelvis w con* [id number] Accession Number(s): [id number] Report Number: [id number] PROCEDURE INFORMATION: Exam: CT Abdomen And Pelvis With Contrast Exam date and time: 08/02/2021 8:54 AM Age: 56 years old Clinical indication: Abdominal pain; Colic; Prior surgery; Surgery date: 6+ months; Surgery type: Colon adhesions; Additional info: Abdominal pain, nausea/diarrhea; HX obstructions TECHNIQUE: Imaging protocol: Computed tomography of the abdomen and pelvis with contrast. Radiation optimization: All CT scans at this facility use at least one of these dose optimization techniques: automated exposure control; mA and/or kV adjustment per patient size (includes targeted exams where dose is matched to clinical indication); or iterative reconstruction. Contrast material: OMNIPAQUE 300; Contrast volume: 95 ml; Contrast route: INTRAVENOUS (IV); COMPARISON: CT abdomen pelvis w con* [id number] 03/13/2021 5:43 AM RADIATION DOSE METRICS: Total DLP (mGy-cm): 1713.37 FINDINGS: Lungs: There is a stable tiny benign calcified granuloma in the right lower lobe. Liver: Unremarkable. Gallbladder and bile ducts: Cholecystectomy. There is mild extrahepatic bile duct dilatation can be normal after cholecystectomy. Pancreas: There is stable mild prominence of the pancreatic duct. The pancreas enhances normally. No pancreatic masses. Spleen: Normal. No splenomegaly. Adrenal glands: Normal. No mass. Kidneys and ureters: There is a tiny nonobstructing calcification in the upper pole of right kidney. There is no hydronephrosis or ureteral calculus. Stomach and bowel: There are multiple loops of dilated predominantly fluid-filled small bowel loops with scattered air-fluid levels. The small bowel is dilated to a diameter of 3.5 cm. In there is fluid throughout nondilated colon. The small bowel is dilated all the way to the ileocecal valve. There is mural thickening and increased sub mucosal fat in most of the mid and distal small bowel loops. This is seen in inflammatory bowel disease. Appendix: No evidence of appendicitis. Intraperitoneal space: Unremarkable. No free air. No significant fluid collection. Vasculature: There is atherosclerotic calcification of the aorta but there is no aneurysm. Lymph nodes: Unremarkable. No enlarged lymph nodes. Urinary bladder: Unremarkable as visualized. Reproductive: Hysterectomy. No pelvic masses. Bones/joints: . No acute fracture. Soft tissues: Bilateral breast implants. CT/CT abdomen pelvis w con* [id number] IMPRESSION: There are multiple loops of dilated fluid-filled mid and distal small bowel and there is fluid throughout nondilated colon. Point of obstruction is not seen. There is mural thickening of the small bowel with prominent subcu coastal fat. These findings are consistent with an enterocolitis and inflammatory bowel disease. 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
[2021-08-02] MEDS: iohexol 300 mg/mL 100 mL Btl IV (09:10)
[2021-08-02 09:15] LABS: Basophils % 0.2 %; Eosinophils # 0.1 10^3/uL (0.0-0.8); Eosinophils % 0.5 %; Hematocrit 46.4 % (37.0-47.0); Hemoglobin 15.3 g/dL (11.5-15.3); Lymphocytes # 1.3 10^3/uL (0.8-4.8); Lymphocytes % 13.8 %; Mean Corpuscular Hemoglobin 27.8 pg (28.0-34.0); Mean Corpuscular Volume 84.4 fl (81-99); Mean Platelet Volume 10.6 fL (7.4-10.4); Monocytes # 0.5 10^3/uL (0.2-0.9); Monocytes % 4.8 %; Neutrophils # 7.78 10^3/uL (1.8-7.7); Neutrophils % 80.5 %; Nucleated Red Blood Cells % 0 %; Platelet Count 279 10^3/cmm (130-400); Red Cell Distribution Width 13.1 % (12.1-15.1); White Blood Count 9.7 10^3/uL (4.0-10.0)
[2021-08-02] MEDS: sodium chloride 0.9% 1,000 ML 999 ML IV (09:26)
[2021-08-02] MEDS: morphine 4 mg/mL SDV 1 mL IVP (09:26)
[2021-08-02] MEDS: ondansetron 2 mg/ML SDV 2 mL 4 MG IVP ×2 (09:26→21:47)
[2021-08-02 09:39] LABS: Alanine Aminotransferase 8 U/L (0-33); Albumin Level 4.1 g/dL (3.5-5.2); Alkaline Phosphatase 102 IU/L (35-105); Anion Gap 15.8 (5-19); Aspartate Amino Transferase 10 U/L (0-32); Blood Urea Nitrogen 16 mg/dL (6-20); Calcium 9.5 mg/dL (8.5-10.5); Carbon Dioxide 26 mmol/L (22-29); Chloride 102 mmol/L (98-107); Globulin 3.4 g/dL (1.3-4.6); Glomerular Filtration Rate 57.6 mL/min (90-130); Glucose 113 mg/dL (65-115); Lipase 22 U/L (13-60); Osmolality Calculated 292 mOsm/kg (285-295); Potassium 3.8 mmol/L (3.5-5.1); Sodium 140 mmol/L (136-145); Total Bilirubin 0.3 mg/dL (0.15-1.2); Total Protein 7.5 g/dL (6.6-8.7)
[2021-08-02 10:21] LABS: Lactic Sepsis W/Reflex 1.2 mmol/L (0.5-2.2)
[2021-08-02 10:41] LABS: Add Urine Microscopic? YES; Bilirubin Urine Neg (Negative); Blood Urine Neg (Negative); Glucose Urine UA Norm (Normal); Ketones Urine Negative (Negative); Leukocyte Esterase Urine Negative (Negative); Nitrate Urine Negative (Negative); Protein Urine Trace (Negative); Specific Gravity, Urine 1.005 (1.005-1.030); Urine Appearance Clear (CLEAR); Urine Color Straw (Yellow); Urobilinogen Urine Norm (Negative); pH Urine 6.5 (5-7)
[2021-08-02 10:49] LABS: Add Urine Culture? No; Bacteria Urine TRACE /hpf; Squamous Epithelial Cell Urine RARE /hpf (0-5)
[2021-08-02 10:53] LABS: C Reactive Protein 13.8 mg/L (0.0-4.9)
--- NOTE | 2021-08-02 12:02 | PM.HP ---
Providers/Chief Complaint Primary Care Provider: Roseanne Marin Chief Complaint: EXPLOSIVE DIARRHEA-SIMILAR TO HX BOWEL BLOCKAGE History of Present Illness Anne Payne is a 56 year old female with past medical history of irritable bowel disease, hypertension, multiple bowel surgeries for bowel obstruction, adhesiolysis incidental appendectomy who presented to the ER today with complaint of abdominal pain, nausea, multiple episodes of diarrhea. Diarrhea started last night and she states she has gone too many times to count. She has not noticed any blood in her stool and has been going every 30 minutes. She did take promethazine at home and therefore has not had any vomiting but states she has been belching a lot. She does complain of abdominal pain all over her abdomen. She also mentions that when she was here the last time she ended up getting diagnosed with a bowel obstruction and had to have surgery and at that point he also took out her appendix. ER course: On arrival blood pressure 182/91, pulse 87, respirate 17, temp 99.1, saturating 97%. She had a CT abdomen performed which showed multiple loops of dilated fluid-filled mid and distal small bowel and there is fluid throughout nondilated colon. Point of obstruction not seen. Mural thickening of small bowel with prominent subq. costal fat. Findings consistent with enterocolitis and inflammatory bowel disease. Dr. Robles general surgery was called from the ER. He recommended NG tube at this time along with IV antibiotics Zosyn and Flagyl. I also discussed case with him over the phone. He did review the CT image and states that he does not think there is an obstruction going on. We will work-up the patient for colitis at this point. We will continue antibiotics and check stool cultures for ova parasite and bacteria. Review of Systems General: Reports: 10 or more systems reviewed and unremarkable except in HPI and below Medications/Allergies Home Medications Medication Instructions Recorded Confirmed Last Taken Type diphenhydramine HCl 25 mg tablet 25 mg PO DAILY PRN tab 11/22/19 08/02/21 01/28/21 History clonidine HCl 0.1 mg tablet 0.1 mg PO DAILY PRN tab 11/26/19 08/02/21 04/15/20 History sumatriptan 5 mg/actuation nasal 20 mg INTRANASAL Q2H PRN #6 each 01/11/20 08/02/21 04/15/20 Rx spray MDD 40mg in 24 hours acetaminophen [Tylenol Extra 1,000 mg PO PRN PRN 03/24/20 08/02/21 01/28/21 History Strength] Excedrin Migraine 2 tab PO PRN PRN 03/31/20 08/02/21 09/24/20 08:00 History promethazine 25 mg PO Q6H PRN #20 tab 09/24/20 08/02/21 Unknown Rx pantoprazole 40 mg tablet,delayed 40 mg PO DAILY@08 #90 tab 02/03/21 08/02/21 08/01/21 Rx release ondansetron HCl [Zofran] 4 mg PO Q6H PRN #20 tab 03/13/21 08/02/21 Unknown Rx pregabalin 100 mg capsule 100 mg PO TID@08,13,20 #90 cap 03/24/21 08/02/21 08/02/21 Rx erenumab-aooe 140 mg/mL 140 mg SUBCUT Q30D #1 ml 05/05/21 08/02/21 Unknown Rx subcutaneous auto-injector diltiazem HCl 300 mg capsule,24 300 mg PO DAILY@08 #90 cap 05/21/21 08/02/21 08/02/21 Rx hr,extended release meloxicam 15 mg tablet 15 mg PO DAILY #30 tab 06/05/21 08/02/21 08/01/21 Rx ascorbic acid (vitamin C) 500 mg 250 mg PO DAILY 06/30/21 08/02/21 08/02/21 History tablet magnesium 30 mg tablet 30 mg PO DAILY 06/30/21 08/02/21 08/02/21 History omega-3 fatty acids 1,000 mg 1,000 mg PO DAILY 06/30/21 08/02/21 08/01/21 History capsule vitamin B complex 1 tab PO DAILY 06/30/21 08/02/21 08/01/21 History vitamin E 200 unit capsule 200 unit PO DAILY 06/30/21 08/02/21 08/01/21 History Cymbalta 60 mg PO DAILY 08/02/21 08/02/21 08/02/21 History Lasix 40 mg PO DAILY 08/02/21 08/02/21 08/02/21 History bumetanide 1 mg PO DAILY PRN 08/02/21 08/02/21 Unknown History carvedilol 25 mg PO BID 08/02/21 08/02/21 08/02/21 History estradiol 2 mg PO DAILY 08/02/21 08/02/21 08/02/21 History multivitamin 1 tab PO DAILY 08/02/21 08/02/21 08/02/21 History potassium chloride [Klor-Con 10] 10 meq PO DAILY 08/02/21 08/02/21 08/01/21 History trazodone 50 mg PO BEDTIME 08/02/21 08/02/21 08/01/21 History turmeric 400 mg PO DAILY 08/02/21 08/02/21 08/02/21 History Allergies Allergy/AdvReac Type Severity Reaction Status Date / Time risperidone [From Risperdal] Allergy Unconscious Verified 08/02/21 14:37 Sulfa (Sulfonamide Allergy ALGY-Hives Verified 08/02/21 14:37 Antibiotics) tramadol Allergy ADR-Migrain Verified 08/02/21 14:37 e PFSH Acute PFSH: Medical History Depression with anxiety Fear of insects (Unknown) Specifically tics Herpes genitalia History of malignant melanoma Hot flashes HTN (hypertension) with goal to be determined Inappropriate sinus tachycardia Irritable bowel disease Long-term current use of opiate analgesic Lumbar radiculitis Major depressive disorder, recurrent, severe with psychotic symptoms Malignant hypertension No pertinent past medical history neghx: dm,thyroid,dvt/pe PCP: Roseanne Marin Pain management contract signed Psychiatric care Surgical History Bowel obstruction (~01/15/21) surgical repair by DR. Lambert H/O tubal ligation (~2008) History of augmentation of both breasts (~2012) SILICONE IMPLANTS Hx of abdominoplasty (~2009) Hx of section (~2008) x 1 Hx of decompressive lumbar laminectomy ---2014 L5-[address] [facility] [place], [place]. ---10/20/2020 Revision; Dr Dalia ALBERT Hx of hernia repair (~2012) ventral (patient thinks mesh was used) Hx of hysterectomy (~2008) CHRISTINA-- ovaries spared. Intra-abdominal adhesions (~10/2020) adhesiolysis / incidental appendectomy-- at same time as bowel obstruction Family History Mother Breast cancer dx age unknown Grandmother Breast cancer Maternal--dx age 60's Sister No problems noted. Daughter Uterine cancer dx age 28 Other Cancer Diabetes Hypertension Psychiatric illness Stroke Suicide Denies family history of Colon cancer Ovarian cancer Lung disease Social History Alcohol intake: current Alcohol intake frequency: holidays/special occasions only Alcohol type: wine History of recent travel: No Vitals/I&O/Wt Last Vital Signs Temp 99.1 F 08/02/21 08:43 Pulse 87 08/02/21 09:50 Resp 17 08/02/21 09:50 BP 182/91 08/02/21 09:50 Pulse Ox 97 08/02/21 09:50 Weight last 48 hrs Weight 79.379 kg Physical Exam Narrative: EXAM NARRATIVE: General: Alert oriented x3, patient seen laying in bed appearing not in acute distress HEENT: Normocephalic, atraumatic, EOMI, breathing room air Cardio: Regular rate rhythm, normal S1-S2, no murmurs rubs gallops Respiratory: Good bilateral air entry, no wheezes no rhonchi appreciated GI: Abdomen soft, mildly tender,, nondistended, bowel sounds + Behavior: Appropriate and cooperative Extremities: no edema, no cyanosis Data : 08/02/21 09:00 08/02/21 09:00 A&P Assessment and plan (1) Enterocolitis: Status: Acute (2) Irritable bowel disease: Status: Acute Qualifiers: Irritable bowel syndrome type: with constipation Qualified Code(s): K58.1 - Irritable bowel syndrome with constipation (3) Hypertension: Status: Acute (4) Migraine headache: Status: Acute Qualifiers: Intractability: not intractable Migraine type: without aura Status migrainosus presence: without status migrainosus Qualified Code(s): G43.009 - Migraine without aura, not intractable, without status migrainosus Additional A&P Information #Enterocolitis #History of irritable bowel disease #History of multiple bowel surgeries for bowel obstruction, adhesiolysis, incidental appendectomy Most likely patient has a viral etiology at this point. General surgery has seen the patient in consultation already. We will place her on IV fluids. NG tube. Will allow for ice chips at this point. Follow stool studies. Will place patient on ciprofloxacin and Flagyl. She was given zosyn and flagyl in ER. #Migraine headaches Patient does take Excedrin and Tylenol for migraines which she says does seem to help. She sees Dr. Powell for follow-up. She is also intranasal sumatriptan as needed for migraines every 2 hours. #Uncontrolled hypertension At home she takes clonidine 0.1 as needed if systolic blood pressures greater than 180 Diltiazem 300 mg daily Lasix 40 daily. In addition she takes Bumex 1 mg as needed the day she has extra edema Continue Coreg 25 twice daily Fluids: Normal saline 75 cc/h Electrolytes: Replete as needed Nutrition: N.p.o. for now Activity: As tolerated DVT prophylaxis: Heparin. Attestations Medical Necessity Statement*: Anticipate greater than 48-hour stay. Time Spent in Patient Care: 16 - 35 minutes Coding Level of Care Code Acute Lace Pinner for [facility] Fwd Diagnoses Enterocolitis K52.9 Irritable bowel disease K58.1 Irritable bowel syndrome type: with constipation Hypertension I10 Migraine headache G43.009 Intractability: not intractable Migraine type: without aura Status migrainosus presence: without status migrainosus
[2021-08-02] MEDS: metroNIDAZOLE IV 500 MG/100 ML PREMIX 100 MG IV ×2 (12:20→20:35)
[2021-08-02] MEDS: diphenhydrAMINE 50 mg/mL SDV 1mL 25 MG IVP (13:18)
[2021-08-02] MEDS: ciprofloxacin 400 MG/200 ML PREMIX 200 MG IV (13:19)
--- NOTE | 2021-08-02 14:30 | PM.CONSULT ---
Providers/Reason For Consult Consulting Physician/Specialty*: Malvin Robles MD Reason for Consult*: Abdominal pain Requesting Physician: Malvin Robles MD Attending Physician: Stephanie Clifton MD Primary Care Provider: Roseanne Marin History of Present Illness History of Present Illness Chief Complaint: My tumchristo hurts History of present illness: Ms Anne Payne is a pleasant 56 year old female well-known to me from previous clinical encounters. She presents to the emergency department today complaining of abdominal pain associated with nausea and repetitive episodes of nonbloody diarrhea that started midnight last night, patient denies history of vomiting. She did undergo expiratory laparotomy back in January by Dr. Lambert for adhesive bowel obstruction and incidental appendectomy was done at the same time. Previous surgeries ventral hernia repair, laparoscopic hysterectomy and cholecystectomy. Patient was seen in my office back in May 2021 and at that time patient was concerned about issues with her bowels and has been having constipation. Patient had a colonoscopy in 2018 and showed hyperplastic polyp and it seems that she has been having alternating bowel movements. At that time a small bowel follow-through was requested by me that showed insignificant findings. Patient reports history of diarrhea, nonbloody in nature, has been going since yesterday midnight. Patient denies history of recent travels, antibiotics, change in medications,or questionable source of water, no history of sick contacts, no history of thyroid disorders. At the emergency room visit today 08/02/2021 Blood work was within normal limits. CRP was requested by me that showed 13.[address] scan of the abdomen and pelvis that showed Lungs: There is a stable tiny benign calcified granuloma in the right lower lobe. Liver: Unremarkable. Gallbladder and bile ducts: Cholecystectomy. There is mild extrahepatic bile duct dilatation can be normal after cholecystectomy. Pancreas: There is stable mild prominence of the pancreatic duct. The pancreas enhances normally. No pancreatic masses. Spleen: Normal. No splenomegaly. Adrenal glands: Normal. No mass. Kidneys and ureters: There is a tiny nonobstructing calcification in the upper pole of right kidney. There is no hydronephrosis or ureteral calculus. Stomach and bowel: There are multiple loops of dilated predominantly fluid-filled small bowel loops with scattered air-fluid levels. The small bowel is dilated to a diameter of 3.5 cm. In there is fluid throughout nondilated colon. The small bowel is dilated all the way to the ileocecal valve. There is mural thickening and increased sub mucosal fat in most of the mid and distal small bowel loops. This is seen in inflammatory bowel disease. Appendix: No evidence of appendicitis. Intraperitoneal space: Unremarkable. No free air. No significant fluid collection. Vasculature: There is atherosclerotic calcification of the aorta but there is no aneurysm. Lymph nodes: Unremarkable. No enlarged lymph nodes. Urinary bladder: Unremarkable as visualized. Reproductive: Hysterectomy. No pelvic masses. Bones/joints: . No acute fracture. Soft tissues: Bilateral breast implants. General surgery was consulted for further evaluation. Further history patient reports that she had peanut butter and honey yesterday morning and had a cheeseburger later on through the day and that did not make her sick, she was helping her friend in moving to another place and by midnight yesterday she got sick. Review of Systems General: Reports: 10 or more systems reviewed and unremarkable except in HPI and below Meds/Allergies Home Medications and Allergies Home Medications Medication Instructions Recorded Confirmed Last Taken Type diphenhydramine HCl 25 mg tablet 25 mg PO DAILY PRN tab 11/22/19 08/02/21 01/28/21 History clonidine HCl 0.1 mg tablet 0.1 mg PO DAILY PRN tab 11/26/19 08/02/21 04/15/20 History sumatriptan 5 mg/actuation nasal 20 mg INTRANASAL Q2H PRN #6 each 01/11/20 08/02/21 04/15/20 Rx spray MDD 40mg in 24 hours acetaminophen [Tylenol Extra 1,000 mg PO PRN PRN 03/24/20 08/02/21 01/28/21 History Strength] Excedrin Migraine 2 tab PO PRN PRN 03/31/20 08/02/21 09/24/20 08:00 History promethazine 25 mg PO Q6H PRN #20 tab 09/24/20 08/02/21 Unknown Rx pantoprazole 40 mg tablet,delayed 40 mg PO DAILY@08 #90 tab 02/03/21 08/02/21 08/01/21 Rx release ondansetron HCl [Zofran] 4 mg PO Q6H PRN #20 tab 03/13/21 08/02/21 Unknown Rx pregabalin 100 mg capsule 100 mg PO TID@,13,20 #90 cap 03/24/21 08/02/21 08/02/21 Rx erenumab-aooe 140 mg/mL 140 mg SUBCUT Q30D #1 ml 05/05/21 08/02/21 Unknown Rx subcutaneous auto-injector diltiazem HCl 300 mg capsule,24 300 mg PO DAILY@08 #90 cap 05/21/21 08/02/21 08/02/21 Rx hr,extended release meloxicam 15 mg tablet 15 mg PO DAILY #30 tab 06/05/21 08/02/21 08/01/21 Rx ascorbic acid (vitamin C) 500 mg 250 mg PO DAILY 06/30/21 08/02/21 08/02/21 History tablet magnesium 30 mg tablet 30 mg PO DAILY 06/30/21 08/02/21 08/02/21 History omega-3 fatty acids 1,000 mg 1,000 mg PO DAILY 06/30/21 08/02/21 08/01/21 History capsule vitamin B complex 1 tab PO DAILY 06/30/21 08/02/21 08/01/21 History vitamin E 200 unit capsule 200 unit PO DAILY 06/30/21 08/02/21 08/01/21 History Cymbalta 60 mg PO DAILY 08/02/21 08/02/21 08/02/21 History Lasix 40 mg PO DAILY 08/02/21 08/02/21 08/02/21 History bumetanide 1 mg PO DAILY PRN 08/02/21 08/02/21 Unknown History carvedilol 25 mg PO BID 08/02/21 08/02/21 08/02/21 History estradiol 2 mg PO DAILY 08/02/21 08/02/21 08/02/21 History multivitamin 1 tab PO DAILY 08/02/21 08/02/21 08/02/21 History potassium chloride [Klor-Con 10] 10 meq PO DAILY 08/02/21 08/02/21 08/01/21 History trazodone 50 mg PO BEDTIME 08/02/21 08/02/21 08/01/21 History turmeric 400 mg PO DAILY 08/02/21 08/02/21 08/02/21 History Allergies Allergy/AdvReac Type Severity Reaction Status Date / Time risperidone [From Risperdal] Allergy Unconscious Verified 08/02/21 14:37 Sulfa (Sulfonamide Allergy ALGY-Hives Verified 08/02/21 14:37 Antibiotics) tramadol Allergy ADR-Migrain Verified 08/02/21 14:37 e PFSH Acute PFSH: Medical History Depression with anxiety Fear of insects (Unknown) Specifically tics Herpes genitalia History of malignant melanoma Hot flashes HTN (hypertension) with goal to be determined Inappropriate sinus tachycardia Irritable bowel disease Long-term current use of opiate analgesic Lumbar radiculitis Major depressive disorder, recurrent, severe with psychotic symptoms Malignant hypertension No pertinent past medical history neghx: dm,thyroid,dvt/pe PCP: Roseanne Marin Pain management contract signed Psychiatric care Surgical History Bowel obstruction (~01/15/21) surgical repair by DR. Lambert H/O tubal ligation (~2008) History of augmentation of both breasts (~2012) SILICONE IMPLANTS Hx of abdominoplasty (~2009) Hx of section (~2008) x 1 Hx of decompressive lumbar laminectomy ---2014 L5-S1 [facility] IN [place], [place] ---10/20/2020 Revision; Dr Dalia ALBERT Hx of hernia repair (~2012) ventral (patient thinks mesh was used) Hx of hysterectomy (~2008) CHRISTINA-- ovaries spared. Intra-abdominal adhesions (~10/2020) adhesiolysis / incidental appendectomy-- at same time as bowel obstruction Family History Mother Breast cancer dx age unknown Grandmother Breast cancer Maternal--dx age 60's Sister No problems noted. Daughter Uterine cancer dx age 28 Other Cancer Diabetes Hypertension Psychiatric illness Stroke Suicide Denies family history of Colon cancer Ovarian cancer Lung disease Social History Alcohol intake: current Alcohol intake frequency: holidays/special occasions only Alcohol type: wine History of recent travel: No Vitals/I&O/Wt Last Vital Signs Temp 99.1 F 08/02/21 08:43 Pulse 87 08/02/21 12:23 Resp 18 10/24/21 12:23 BP 140/78 08/02/21 12:23 Pulse Ox 96 08/02/21 12:23 08/01/21 08/02/21 08/02/21 22:59 06:59 14:59 Intake Total 1100 / 1100 Balance 1100 / 1100 Weight last 48 hrs Weight 175 lb Physical Exam Narrative: EXAM NARRATIVE: Patient is conscious alert oriented X3 BMI 33.1 Head and neck examination PERRLA no masses no cervical lymphadenopathy no jaundice Cardiac examination audible S1-S2 no murmurs no gallops no arrhythmias Chest is clear bilateral,abscence of Rhonchi or wheezes,no surgical emphysema Abdomen diffuse tender nondistended soft no organomegaly guarding or rigidity/no signs of peritonitis. Well-healed midline scar. Extremities no cyanosis no clubbing no edema Data Micro: Micro: Microbiology 08/02/21 08:35 Enteric Pathogens (PCR) - Final Stool C.difficile Toxin B Gene (PCR) - Fin al 08/02/21 08:35 Stool Lactoferrin - Final Stool Occult Blood (FIT) - Final A&P Assessment and plan (1) Enterocolitis: After thorough history physical examination and reviewing the chart and images with my personal interpretation. Likely the patient has enterocolitis. No evidence of bowel obstruction, no evidence of transition point(s). From surgical standpoint of view there is no indication for surgical intervention. My recommendations are as follows: IV fluid resuscitation Cipro and Flagyl Patient can have some ice chips Repeated physical examination Strict I's and O Follow on stool studies Assurance and education All questions have been answered and all concerns have been addressed to patient's satisfaction. Thank you for consulting general surgery to participate taking care Ms. Cantrell Status: Acute Consult Attestations Medical Necessity Statement: Per admitting service Time Spent in Patient Care: (>than 50% of time spent in counselling and/or direct pt care on unit). 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
[2021-08-02] MEDS: piperacillin-tazobactam 3.375 GM in sodium chloride 0.9% (plus) 50 ML IV ×2 (14:40→20:02)
[2021-08-02] MEDS: acetaminophen 500 mg Tablet 1000 MG PO (14:40)
[2021-08-02] MEDS: heparin 5,000 unit/mL INJ 1 mL 5000 UNIT SUBCUT (15:03)
[2021-08-02] MEDS: pantoprazole 40 mg SDV IVP (15:03)
[2021-08-02] MEDS: morphine 4 mg/mL SDV 1 mL 1 MG IVP (17:22)
[2021-08-02] MEDS: carvedilol 25 mg Tablet PO (17:22)
[2021-08-02] MEDS: sodium chloride 0.9% 1,000 ML 75 ML IV (21:42)
[2021-08-02] MEDS: trazodone 50 mg Tablet PO (21:42)
[2021-08-03] VITALS: BP 121/70; PULSE 89; RESP 18; TEMP 36.6; O2SAT 94
[2021-08-03 03:38] VITALS: BP 128/67; PULSE 77; RESP 18; TEMP 36.7; O2SAT 97
[2021-08-03] MEDS: piperacillin-tazobactam 3.375 GM in sodium chloride 0.9% (plus) 50 ML IV (04:07)
[2021-08-03] MEDS: heparin 5,000 unit/mL INJ 1 mL 5000 UNIT SUBCUT (04:08)
[2021-08-03] MEDS: metroNIDAZOLE IV 500 MG/100 ML PREMIX 100 MG IV (04:08)
[2021-08-03 05:49] VITALS: PULSE 66
[2021-08-03 06:33] LABS: Basophils % 0.2 %; Eosinophils # 0.1 10^3/uL (0.0-0.8); Eosinophils % 1.7 %; Hematocrit 36.9 % (37.0-47.0); Hemoglobin 11.7 g/dL (11.5-15.3); Lymphocytes # 1.7 10^3/uL (0.8-4.8); Lymphocytes % 31.6 %; Mean Corpuscular HGB Conc 31.7 g/dL (30.0-36.0); Mean Corpuscular Hemoglobin 27.9 pg (28.0-34.0); Mean Corpuscular Volume 88.1 fl (81-99); Mean Platelet Volume 10.9 fL (7.4-10.4); Monocytes # 0.5 10^3/uL (0.2-0.9); Monocytes % 8.6 %; Neutrophils # 3.14 10^3/uL (1.8-7.7); Neutrophils % 57.5 %; Nucleated Red Blood Cells % 0 %; Platelet Count 220 10^3/cmm (130-400); Red Blood Count 4.19 10^6/uL (4.1-5.3); Red Cell Distribution Width 13.7 % (12.1-15.1); White Blood Count 5.5 10^3/uL (4.0-10.0)
[2021-08-03 06:47] LABS: Lactic Sepsis W/Reflex 0.8 mmol/L (0.5-2.2)
[2021-08-03 06:57] LABS: Thyroid Stimulating Hormone 1.55 uIU/mL (0.27-4.20)
[2021-08-03 07:09] LABS: Alanine Aminotransferase 9 U/L (0-33); Alkaline Phosphatase 77 IU/L (35-105); Aspartate Amino Transferase 11 U/L (0-32); Blood Urea Nitrogen 13 mg/dL (6-20); Calcium 7.8 mg/dL (8.5-10.5); Carbon Dioxide 22 mmol/L (22-29); Chloride 107 mmol/L (98-107); Globulin 2.4 g/dL (1.3-4.6); Glomerular Filtration Rate 74.5 mL/min (90-130); Glucose 97 mg/dL (65-115); Osmolality Calculated 288 mOsm/kg (285-295); Phosphorus 2.7 mg/dL (2.5-4.5); Sodium 139 mmol/L (136-145); Total Bilirubin 0.5 mg/dL (0.15-1.2); Total Protein 5.4 g/dL (6.6-8.7)
[2021-08-03 07:23] VITALS: BP 99/58; PULSE 74; RESP 16; TEMP 36.7; O2SAT 94
--- NOTE | 2021-08-03 07:45 | P.PN_ITS ---
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
[2021-08-03] MEDS: carvedilol 25 mg Tablet PO (08:21)
[2021-08-03] MEDS: dilTIAZem ER (24HR) 300 mg Capsule PO (08:21)
[2021-08-03] MEDS: duloxetine 60 mg Capsule PO (08:21)
--- NOTE | 2021-08-03 09:40 | PC.CHAP ---
Pastoral Care Encounter/Spiritual Assessment Type of Contact [] Declined driver license technician visit [] Patient/Family/Request visit [] Outpatient visit [] Follow-up visit [] Physician referral [] Code/Alert [x] Routine visit [] Staff referral [] Actively dying [] Patient sleeping [] Family support [] [] Out of room [] Palliative care [] [] Receiving care in room [] Pre-surgical visit [] Trauma [] Long length of stay [] ICU visit [] Other: Relational/Emotional Strength [x] Patient feels connected with others/family/visitors/staff [] Distress [] Loneliness/isolation [] Abandonment Spirituality of Patient [x] Person of Bernarda [] Attends Moravian of their Bernarda [x] Believes in Prayer [] Reads Bible or Rastafarian materials [] There are Spiritual issues to be addressed [employer]ant [employer] Interventions [x] Prayer [x] Active listening [x] Non-anxious presence [x] Spiritual/emotional support [] Crisis/trauma care [] Spiritual counseling [] Bereavement support [] Provided bereavement packet [] Provided Bible/devotional materials [] Provided toy/stuffed animal, coloring book to patient or family member [] Provided Communion [] Anointing/[place] [] Salvation [x] Completed spiritual assessment [] Other: Impact on Illness or Injury [] Angry [] Fearful [] Anxious [] Often cries [] Exhaustion [] Unable to work [] Unable to attend taoist [] Unable to walk/stand [] Unable to read [] Unable to drive [] Unable to eat/drink [] Unable to sleep [] Unable to be with family [] Patient intubated [] Other: Summary 15 min Time spent with patient
[2021-08-03 11:10] VITALS: BP 103/63; PULSE 70; RESP 14; TEMP 36.4; O2SAT 96
--- NOTE | 2021-08-03 13:31 | PM.DCS ---
Discharge Providers Date of Admission: 08/02/21 11:36 Date of Discharge: August 03, 2021 Attending Provider at Admission: Stephanie Clifton MD Attending Provider at Discharge: Stephanie Clifton MD Primary Care Provider: Roseanne Marin Diagnoses at Discharge Discharge Diagnosis (1) Enterocolitis: Status: Acute (2) Irritable bowel disease: Status: Acute Qualifiers: Irritable bowel syndrome type: with constipation Qualified Code(s): K58.1 - Irritable bowel syndrome with constipation (3) Hypertension: Status: Acute (4) Migraine headache: Status: Acute Qualifiers: Intractability: not intractable Migraine type: without aura Status migrainosus presence: without status migrainosus Qualified Code(s): G43.009 - Migraine without aura, not intractable, without status migrainosus Reason for Visit Reason for Visit: EXPLOSIVE DIARRHEA-SIMILAR TO HX BOWEL BLOCKAGE Hospital Course Hospital Course Anne Payne is a 56 year old female with past medical history of irritable bowel disease, hypertension, multiple bowel surgeries for bowel obstruction, adhesiolysis incidental appendectomy who presented to the ER today with complaint of abdominal pain, nausea, multiple episodes of diarrhea. Diarrhea started last night and she states she has gone too many times to count. She has not noticed any blood in her stool and has been going every 30 minutes. She did take promethazine at home and therefore has not had any vomiting but states she has been belching a lot. She does complain of abdominal pain all over her abdomen. She also mentions that when she was here the last time she ended up getting diagnosed with a bowel obstruction and had to have surgery and at that point he also took out her appendix. ER course: On arrival blood pressure 182/91, pulse 87, respirate 17, temp 99.1, saturating 97%. She had a CT abdomen performed which showed multiple loops of dilated fluid-filled mid and distal small bowel and there is fluid throughout nondilated colon. Point of obstruction not seen. Mural thickening of small bowel with prominent subq. costal fat. Findings consistent with enterocolitis and inflammatory bowel disease. Dr. Robles general surgery was called from the ER. He recommended NG tube at this time along with IV antibiotics Zosyn and Flagyl. I also discussed case with him over the phone. He did review the CT image and states that he does not think there is an obstruction going on. We will work-up the patient for colitis at this point. We will continue antibiotics and check stool cultures for ova parasite and bacteria. Course: Patient was observed overnight. NG tube was not placed. Stool studies are negative at this point. Lactoferrin also negative. It is possible this was just an episode of her irritable bowel syndrome at this point. She did get antibiotics so on her white count came down. She has not had any more diarrhea since 8 PM yesterday. Patient is tolerating a diet and passing gas. Did not have any more diarrheal episodes today. She is requesting to go home. I discussed with Dr. Robles over the phone as well. She will follow up with him as an outpatient. She will be discharged on ciprofloxacin and Flagyl for 7 days. Abdominal exam is benign today. She feels back to normal. Physical Exam Narrative: EXAM NARRATIVE: General: Alert oriented x3, patient seen laying in bed appearing not in acute distress HEENT: Normocephalic, atraumatic, EOMI, breathing room air Cardio: Regular rate rhythm, normal S1-S2, no murmurs rubs gallops Respiratory: Good bilateral air entry, no wheezes no rhonchi appreciated GI: Abdomen soft, nontender, nondistended, bowel sounds + exam significantly improved compared to yesterday. Behavior: Appropriate and cooperative Extremities: no edema, no cyanosis Discharge Data Data Completed and Pending: Completed Studies During Hospitalization Category Date Time Status CT abdomen pelvis w con* [id number] Urge nt Cat Scan 08/02/21 08:54 Completed Pending at discharge Category Date Time Status Erythrocyte Sedim entation Rate Stat Lab 08/02/21 09:00 Received Labs from last 24 hours 08/03/21 08/03/21 08/03/21 06:17 06:17 06:17 WBC 5.5 Corrected WBC RBC 4.19 Hgb 11.7 Hct 36.9 L MCV 88.1 MCH 27.9 L MCHC 31.7 RDW 13.7 Plt Count 220 MPV 10.9 H Gran % Neut % (Auto) 57.5 Lymph % (Auto) 31.6 Amelia % (Auto) 8.6 Eos % (Auto) 1.7 Baso % (Auto) 0.2 Neut # (Auto) 3.14 Lymph # (Auto) 1.7 Amelia # (Auto) 0.5 Eos # (Auto) 0.1 Baso # (Auto) 0.0 Absolute Gran (aut o) Nucleated RBC % (a uto) 0 Nucleated RBCs # 0.0 Sodium 139 Potassium 4.0 Chloride 107 Carbon Dioxide 22 Anion Gap 14.0 BUN 13 Creatinine 0.8 GFR Calculation 74.5 L Glucose 97 Calculated Osmolal ity 288 Lactic Acid 0.8 Calcium 7.8 L Phosphorus 2.7 Magnesium 2.0 Total Bilirubin 0.5 AST 11 ALT 9 Alkaline Phosphata se 77 Total Protein 5.4 L D Albumin 3.0 L Globulin 2.4 Procalcitonin 0.10 TSH 1.55 08/03/21 08/03/21 08/03/21 04:25 04:25 04:25 WBC Cancelled Corrected WBC Cancelled RBC Cancelled Hgb Cancelled Hct Cancelled MCV Cancelled MCH Cancelled MCHC Cancelled RDW Cancelled Plt Count Cancelled MPV Cancelled Gran % Cancelled Neut % (Auto) Cancelled Lymph % (Auto) Cancelled Amelia % (Auto) Cancelled Eos % (Auto) Cancelled Baso % (Auto) Cancelled Neut # (Auto) Cancelled Lymph # (Auto) Cancelled Amelia # (Auto) Cancelled Eos # (Auto) Cancelled Baso # (Auto) Cancelled Absolute Gran (aut o) Cancelled Nucleated RBC % (a uto) Cancelled Nucleated RBCs # Cancelled Sodium Cancelled Potassium Cancelled Chloride Cancelled Carbon Dioxide Cancelled Anion Gap Cancelled BUN Cancelled Creatinine Cancelled GFR Calculation Cancelled Glucose Cancelled Calculated Osmolal ity Cancelled Lactic Acid Calcium Cancelled Phosphorus Cancelled Magnesium Cancelled Total Bilirubin Cancelled AST Cancelled ALT Cancelled Alkaline Phosphata se Cancelled Total Protein Cancelled Albumin Cancelled Globulin Cancelled Procalcitonin Cancelled TSH Cancelled Vitals: Last Vital Signs Temp 97.6 F 08/03/21 11:10 Pulse 70 08/03/21 11:10 Resp 14 08/03/21 11:10 BP 103/63 08/03/21 11:10 Pulse Ox 96 08/03/21 11:10 Discharge Plan Discharge Patient Disposition: Home Condition: Stable Prescriptions: New ciprofloxacin HCl 500 mg tablet 500 mg PO Q12H 7 Days Qty: 14 RF: 0 Flagyl 500 mg tablet 500 mg PO TID 7 Days Qty: 21 RF: 0 Continued diphenhydramine HCl 25 mg tablet 25 mg PO DAILY PRN (Reason: Headache) RF: 0 sumatriptan 5 mg/actuation spray,non-aerosol 20 mg INTRANASAL Q2H MDD 40mg in 24 hours PRN (Reason: migraine headache) Qty: 6 RF: 0 clonidine HCl 0.1 mg tablet 0.1 mg PO DAILY PRN (Reason: high bp) RF: 0 Aimovig Autoinjector 140 mg/mL auto-injector 140 mg SUBCUT Q30D Qty: 1 RF: 5 vitamin B complex [B Complex-Vitamin B12] Tablet 1 tab PO DAILY RF: 0 vitamin E 200 unit capsule 200 unit PO DAILY RF: 0 ascorbic acid (vitamin C) 500 mg tablet 250 mg PO DAILY RF: 0 magnesium 30 mg tablet 30 mg PO DAILY RF: 0 omega-3 fatty acids [Fish Oil Concentrate] 1,000 mg capsule 1,000 mg PO DAILY RF: 0 meloxicam [Mobic] 15 mg tablet 15 mg PO DAILY Qty: 30 RF: 0 pantoprazole 40 mg tablet,delayed release (DR/EC) 40 mg PO DAILY@08 Qty: 90 RF: 1 pregabalin 100 mg capsule 100 mg PO TID@08,13,20 Qty: 90 RF: 1 diltiazem HCl 300 mg capsule,extended release 24 hr 300 mg PO DAILY@08 Qty: 90 RF: 3 acetaminophen [Tylenol Extra Strength] 500 mg Tablet 1,000 mg PO PRN PRN (Reason: Pain) RF: 0 promethazine 25 mg tablet 25 mg PO Q6H PRN (Reason: prn headache/migraine) Qty: 20 RF: 0 ondansetron HCl [Zofran] 4 mg tablet 4 mg PO Q6H PRN (Reason: nausea and vomiting) Qty: 20 RF: 0 Excedrin Migraine 250-250-65 mg Tablet 2 tab PO PRN PRN (Reason: Migraine Headache) RF: 0 carvedilol 25 mg tablet 25 mg PO BID RF: 0 Klor-Con 10 10 mEq tablet extended release 10 meq PO DAILY RF: 0 trazodone 50 mg tablet 50 mg PO BEDTIME RF: 0 estradiol 2 mg tablet 2 mg PO DAILY RF: 0 bumetanide 1 mg tablet 1 mg PO DAILY PRN (Reason: Edema) RF: 0 Lasix 20 mg tablet 40 mg PO DAILY RF: 0 Cymbalta 60 mg capsule,delayed release(DR/EC) 60 mg PO DAILY RF: 0 multivitamin Tablet 1 tab PO DAILY RF: 0 turmeric 400 mg Capsule 400 mg PO DAILY RF: 0 Discharge Orders: Discharge Order (Routine); Ordered 08/03/21 Ordered By: Stephanie Clifton Referrals: Malvin Robles MD [Physician] - 08/17/21 8:15 am Roseanne Marin PA [Primary Care Provider] - 08/10/21 3:00 pm Discharge Diet: GI Soft Discharge Activity: Resume usual activity Patient Instructions: Ciprofloxacin (By mouth), Metronidazole (By mouth), Colitis (ED), Opioid Safety Discharge Attestations Time Spent in Discharge Care*: less than 30 min Status at Discharge: Cognitive status at discharge: cognitively intact, Quality Metrics Clinical Quality Measures During this hospital stay, did patient experience: None Coding Level of Care Code Acute Chg FW DC note Diagnoses Enterocolitis K52.9 Irritable bowel disease K58.1 Irritable bowel syndrome type: with constipation Hypertension I10 Migraine headache G43.009 Intractability: not intractable Migraine type: without aura Status migrainosus presence: without status migrainosus
[2021-08-03 16:02] VITALS: BP 103/63; PULSE 70; RESP 14; TEMP 36.4; O2SAT 96
[2021-08-04 09:49] LABS: Erythrocyte Sedimentation Rate 6 mm/hr (0-15)
== END 2021-08-03 15:00 | disposition home or self-care (01) | DRG 392 ==
LOC: ER 10:59 → MEDSURG 12:33
PROVIDERS: Admitting Provider Internal Medicine; Emergency Provider Physician Assistant; PCP Physician Assistant; Visit Provider Internal Medicine
DX: K58.1 Irritable bowel syndrome with constipation (principal); F33.3 Major depressive disorder, recurrent, severe with psychotic symptoms; F41.9 Anxiety disorder, unspecified; Z85.820 Personal history of malignant melanoma of skin; I10 Essential (primary) hypertension; G43.009 Migraine without aura, not intractable, without status migrainosus
CPT/HCPCS: 36415; 74177; 80053; 81001; 82274; 83605; 83630; 83690; 83735; 84100; 84145; 84443; 85025; 85651; 86140; 87493; 87506; 94664; 96365; 96366; 96367; 96372; 96375; 96376; 99285; C9113; J0744; J1200; J1644; J2270; J2405; J2543; J7030; Q9967; S0030

== ENCOUNTER → 2021-08-04 09:01 | Outpatient (BNVA) | payer MEDICARE, MEDICAID, SELFPAY | PROVIDERS: PCP Physician Assistant; Visit Provider Nurse Practitioner Psychiatric/Mental Health | DX: F33.3 Major depressive disorder, recurrent, severe with psychotic symptoms (principal); F40.218 Other animal type phobia | CPT/HCPCS: 99214 ==

== ENCOUNTER → 2021-09-28 08:38 | Outpatient (BNVA) | payer MEDICARE, MEDICAID, SELFPAY | PROVIDERS: PCP Physician Assistant; Visit Provider Nurse Practitioner Psychiatric/Mental Health | DX: F33.3 Major depressive disorder, recurrent, severe with psychotic symptoms (principal); F40.218 Other animal type phobia | CPT/HCPCS: 99214 ==

== ENCOUNTER → 2022-01-07 08:59 | Outpatient (BNVA) | payer MEDICARE, MEDICAID, SELFPAY | PROVIDERS: PCP Physician Assistant; Visit Provider Nurse Practitioner Psychiatric/Mental Health | DX: F33.3 Major depressive disorder, recurrent, severe with psychotic symptoms (principal); F40.218 Other animal type phobia; F60.3 Borderline personality disorder; Z03.89 Encounter for observation for other suspected diseases and conditions ruled out; Z79.899 Other long term (current) drug therapy | CPT/HCPCS: 80053; 80306; 81001; 85025; 99214 ==

== ENCOUNTER → 2022-01-26 09:32 | Outpatient (BNVA) | payer MEDICARE, MEDICAID, SELFPAY | PROVIDERS: PCP Physician Assistant; Visit Provider Nurse Practitioner Family | DX: I10 Essential (primary) hypertension (principal) | CPT/HCPCS: 99213 ==

== ENCOUNTER → 2022-01-28 10:52 | Outpatient (BNVA) | payer MEDICARE, MEDICAID, SELFPAY | PROVIDERS: PCP Physician Assistant; Visit Provider Nurse Practitioner Psychiatric/Mental Health | DX: F33.3 Major depressive disorder, recurrent, severe with psychotic symptoms (principal); F40.218 Other animal type phobia; F60.3 Borderline personality disorder; Z03.89 Encounter for observation for other suspected diseases and conditions ruled out | CPT/HCPCS: 99214 ==

== ENCOUNTER → 2022-02-17 10:28 | Outpatient (BNVA) | payer MEDICARE, MEDICAID, SELFPAY | PROVIDERS: PCP Physician Assistant; Visit Provider Surgery | DX: Z86.010 Personal history of colon polyps (principal) | CPT/HCPCS: 99213 ==

== ENCOUNTER → 2022-03-02 14:17 | Outpatient (BNVA) | payer MEDICARE, MEDICAID, SELFPAY | PROVIDERS: PCP Physician Assistant; Visit Provider Nurse Practitioner Psychiatric/Mental Health | DX: F33.3 Major depressive disorder, recurrent, severe with psychotic symptoms (principal); F40.218 Other animal type phobia; F60.3 Borderline personality disorder | CPT/HCPCS: 99214 ==

== ENCOUNTER 2022-03-26 09:04 | Outpatient (CLI) | payer MEDICARE, MEDICAID, SELFPAY ==
--- NOTE | 2022-03-26 09:10 | MM_ITS ---
WS: [id number] BILATERAL SCREENING DIGITAL BREAST MAMMOGRAPHY WITH NO DISPLACEMENT VIEWS. CAD PERFORMED. HISTORY: SCREEN COMPARISON: 10/06/2020 and 09/20/2018 Bilateral craniocaudal and mediolateral oblique views are performed with tomosynthesis and SM. No displacement views in CC and MLO projection also performed. Breasts composition: The breasts are heterogeneously dense, which may obscure small masses. Developm ent of numerous calcifications in the upper-outer quadrant of the LEFT breast. Some these calcificati ons are rodlike and benign in appearance. Other calcifications are more scattered and punctate. No di stortion. The implants remain intact. These calcifications may be dystrophic. MM/[place] [id number] IMPRESSION: BI-RADS: 0-Incomplete: Need additional imaging evaluation FOLLOW-UP: Need Additional Imaging LEFT BREAST: Magnification views of suspicious calcification CC and MLO. Hernan Altman
== END 2022-03-26 09:05 | disposition home or self-care (01) ==
PROVIDERS: PCP Physician Assistant; Visit Provider Physician Assistant
DX: Z12.31 Encounter for screening mammogram for malignant neoplasm of breast (principal)
CPT/HCPCS: 77063; 77067

== ENCOUNTER 2022-04-06 12:52 | Outpatient (CLI) | payer MEDICARE, MEDICAID, SELFPAY ==
--- NOTE | 2022-04-06 13:08 | MM_ITS ---
WS: [id number] ADDITIONAL VIEWS LEFT MAMMOGRAM WITH NO DISPLACEMENT VIEWS. HISTORY: ABNORMAL MAMMO COMPARISON: 03/26/2022 and 10/06/2020 Magnification views LEFT breast in CC, MLO projections and true ML submitted with digital breast sabina synthesis and SM. Increasing calcifications in the upper outer quadrant of the LEFT breast adjacent to the implant. Sev eral of these calcifications in a ductal distribution. Additional calcifications are benign in appear ance and rodlike. Recommend attempting stereotactic biopsy of the most concerning calcifications. MM/[id number] IMPRESSION: BI-RADS: 4-Suspicious Finding-Biopsy Should Be Considered FOLLOW UP: Biopsy Recommended Stereotactic biopsy recommended of calcifications in the LEFT breast.
== END 2022-04-06 12:53 | disposition home or self-care (01) ==
LOC: RAD 12:55
PROVIDERS: PCP Physician Assistant; Visit Provider Physician Assistant
DX: R92.8 Other abnormal and inconclusive findings on diagnostic imaging of breast (principal); R92.1 Mammographic calcification found on diagnostic imaging of breast
CPT/HCPCS: 77061

== ENCOUNTER 2022-04-09 13:40 | Emergency (ER) | payer MEDICARE, MEDICAID, SELFPAY ==
[2022-04-09 13:48] VITALS: BP 137/69; PULSE 69; RESP 16; TEMP 36.3; O2SAT 97; BMI 28.0
--- NOTE | 2022-04-09 13:55 | CT_ITS ---
WS: [id number] CT HEAD NONCONTRAST HISTORY: headache TECHNIQUE: Contiguous axial imaging performed through the brain in 2.5 mm imaging. Bone and soft tiss ue windows. Sagittal and coronal reformats reviewed. All CT scans at [facility] use at least one of these dose optimization techniques: automated exposure control; mA and/or kV adjustment per pa tient size (includes targeted exams where dose is matched to clinical indication); or iterative recon struction. DLP: 837.5 mGy.cm COMPARISON: 04/15/2020 No acute intracranial hemorrhage, midline shift or mass effect. No atrophy or prior infarcts or herniation. Ventricles: Normal size with no hydrocephalus. Paranasal sinuses: As visualized are clear. Mastoid air cells: Well pneumatized. Calvarium and scalp: Skull is intact with no soft tissue edema or swelling. CT/CT head wo con* [id number] IMPRESSION: Negative head CT.
--- NOTE | 2022-04-09 13:55 | ED_ITS ---
HPI - Syncope General: Chief Complaint: Syncope Stated Complaint: SYNCOPAL EPISODE Time Seen by Provider: 04/09/22 13:45 PFSH ED PFSH: Medical History Borderline personality disorder Depression with anxiety Fear of insects (Unknown) Specifically tics Herpes genitalia History of malignant melanoma Hot flashes HTN (hypertension) with goal to be determined Inappropriate sinus tachycardia Irritable bowel disease Long-term current use of opiate analgesic Lumbar radiculitis Major depressive disorder, recurrent, severe with psychotic symptoms [facility] managing Malignant hypertension No pertinent past medical history neghx: dm,thyroid,dvt/pe PCP: Roseanne Marin Pain management contract signed Psychiatric care Surgical History Bowel obstruction (~01/15/21) surgical repair by DR. Lambert H/O tubal ligation (~2008) History of augmentation of both breasts (~2012) SILICONE IMPLANTS Hx of abdominoplasty (~2009) Hx of section (~2008) x 1 Hx of decompressive lumbar laminectomy ---2014 L5-S1 [facility] IN [place], [place] ---10/20/2020 Revision; Dr Dalia ALBERT Hx of hernia repair (~2012) ventral (patient thinks mesh was used) Hx of hysterectomy (~2008) CHRISTINA-- ovaries spared. Intra-abdominal adhesions (~10/2020) adhesiolysis / incidental appendectomy-- at same time as bowel obstruction Family History Mother Breast cancer dx age unknown Hypertension Grandmother Breast cancer Maternal--dx age 60's Hypertension Maternal and Paternal Sister No problems noted. Daughter Uterine cancer dx age 28 Father Diabetes Hypertension Stroke Grandfather Hypertension maternal and Paternal Denies family history of Colon cancer Ovarian cancer Social History Smoking and tobacco status: never smoked Alcohol intake: current Alcohol intake frequency: holidays/special occasions only Alcohol type: wine History of recent travel: No Female Reproductive History: Date of last menstrual period: 10/10/08 Course Vital Signs: Vital signs: Vital Signs Temperature 97.4 F L 04/09/22 13:48 Pulse Rate 69 04/09/22 13:48 Respiratory Rate 16 04/09/22 13:48 Blood Pressure 137/69 04/09/22 13:48 Pulse Oximetry 97 04/09/22 13:48 Discharge Plan Discharge Condition: Stable Prescriptions: No Action clonidine HCl 0.1 mg tablet 0.1 mg PO DAILY PRN (Reason: high bp) Qty: 90 3RF carvedilol 25 mg tablet 25 mg PO BID Qty: 180 3RF ondansetron HCl 4 mg tablet 4 mg PO Q6H PRN (Reason: nausea and vomiting) Qty: 30 1RF topiramate [Topamax] 25 mg tablet 25 mg PO BID 0RF sertraline [Zoloft] 50 mg tablet 50 mg PO .morning Qty: 30 3RF Rx Instructions: Take one tablet every morning trazodone 100 mg tablet 100 mg PO BEDTIME PRN (Reason: sleep) Qty: 30 3RF Rx Instructions: Take one tablet at bedtime as needed for sleep acyclovir 400 mg tablet 400 mg PO BID PRN0RF fluconazole [Diflucan] 200 mg tablet 200 mg PO DAILY Qty: 5 0RF pregabalin 100 mg capsule 100 mg PO TID@08,13,20 Qty: 90 1RF pantoprazole 40 mg tablet,delayed release (DR/EC) 40 mg PO DAILY@08 Qty: 90 0RF promethazine 25 mg tablet 25 mg PO Q6H PRN (Reason: prn headache/migraine) Qty: 20 0RF Referrals: Roseanne Marin PA [Primary Care Provider] - Coding Level of Care Code ED 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
--- NOTE | 2022-04-09 13:55 | ECG_ITS ---
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 Measurements Intervals [place] Rate: 65 P: 55 DE: 155 QRS: 57 QRSD: 81 T: 70 QT: 376 QTc: 392 Interpretive Statements SINUS RHYTHM Compared to ECG 06/07/2020 08:37:47 No significant changes Electronically Signed On 04-10-2022 12:21:52 CDT by Seb Chawla M.D. [id number]
[2022-04-09 14:06] LABS: Basophils % 0.4 %; Eosinophils # 0.1 10^3/uL (0.0-0.8); Eosinophils % 2.4 %; Hemoglobin 12.7 g/dL (11.5-15.3); Lymphocytes # 1.7 10^3/uL (0.8-4.8); Lymphocytes % 34.3 %; Mean Corpuscular HGB Conc 33.4 g/dL (30.0-36.0); Mean Corpuscular Hemoglobin 27.7 pg (28.0-34.0); Mean Corpuscular Volume 82.8 fl (81-99); Mean Platelet Volume 12.8 fL (7.4-10.4); Monocytes # 0.4 10^3/uL (0.2-0.9); Monocytes % 7.6 %; Neutrophils # 2.76 10^3/uL (1.8-7.7); Neutrophils % 55.1 %; Nucleated Red Blood Cells % 0 %; Platelet Count 182 10^3/cmm (130-400); Red Blood Count 4.59 10^6/uL (4.1-5.3); Red Cell Distribution Width 13.2 % (12.1-15.1)
--- NOTE | 2022-04-09 14:15 | ED_ITS ---
HPI - General Adult General: Chief complaint: Syncope Stated complaint: SYNCOPAL EPISODE Time Seen by Provider: 04/09/22 13:45 History of Present Illness: Patient is a 56-year-old female history of complex migraine on Topamax followed by neurology in [place] presenting to the [facility] room for concerns of syncope which happened around 10:00 lasting for 2 minutes. Patient tells me that she has been having headache for the last month. Yesterday at 2 AM, she woke up in the middle of her night with complaints of bifrontal headache. Early this morning around 10:00, patient was out and about when she was noted to have an episode of syncope witnessed by family. Patient did not hit her head per family. Patient was out for 2 minutes. Patient tells me that she felt lightheaded prior to the episode of syncope. Patient tells me that she has never had syncope before. Patient still continues to report bifrontal headache with nausea without vomiting. Patient has aura similar to baseline headache. Patient has not been taking any medicine other than Topamax twice daily. Patient tells me she has not been able to follow-up with neurology in [place]. Patient has no complaints of chest pain shortness of breath, focal weakness in arms or legs, language difficulty, diplopia, slurring of speech, difficulty swallowing or vertical sensation. Patient tells me that she currently has a 6 out of 10 headache with aura. Patient denies any family history of aneurysm. Onset:syncope at 10am Duration:2 minutes Location:home Severity:moderate Associated symptoms: Reports headache(s) and nausea; Deny chest pain, dyspnea, rash, palpitations or vomiting Review of Systems Const: Denies: fever(s) or chills Eyes: Denies: change in vision ENMT: Denies: mouth pain Card: Denies: chest pain or palpitations Resp: Denies: dyspnea or non-productive cough GI: Reports: nausea; Denies: abdominal pain, vomiting or diarrhea : Denies: dysuria Musc: Denies: extremity pain Skin/Breast: Denies: rash or new lesions Neuro: Reports: headache(s) and other (+syncope x 1); Denies: weakness in extremities Psych: Reports: other (Normal mood) Cecil/Lymph: Denies: easy bruising PFS ED PFSH: Medical History Borderline personality disorder Depression with anxiety Fear of insects (Unknown) Specifically tics Herpes genitalia History of malignant melanoma Hot flashes HTN (hypertension) with goal to be determined Inappropriate sinus tachycardia Irritable bowel disease Long-term current use of opiate analgesic Lumbar radiculitis Major depressive disorder, recurrent, severe with psychotic symptoms [facility] managing Malignant hypertension No pertinent past medical history neghx: dm,thyroid,dvt/pe PCP: Roseanne Marin Pain management contract signed Psychiatric care Surgical History Bowel obstruction (~01/15/21) surgical repair by DR. Lambert H/O tubal ligation (~2008) History of augmentation of both breasts (~2012) SILICONE IMPLANTS Hx of abdominoplasty (~2009) Hx of section (~2008) x 1 Hx of decompressive lumbar laminectomy ---2014 L5-S1 [facility] IN [place], [place]. ---10/20/2020 Revision; Dr Dalia ALBERT Hx of hernia repair (~2012) ventral (patient thinks mesh was used) Hx of hysterectomy (~2008) CHRISTINA-- ovaries spared. Intra-abdominal adhesions (~10/2020) adhesiolysis / incidental appendectomy-- at same time as bowel obstruction Family History Mother Breast cancer dx age unknown Hypertension Grandmother Breast cancer Maternal--dx age 60's Hypertension Maternal and Paternal Sister No problems noted. Daughter Uterine cancer dx age 28 Father Diabetes Hypertension Stroke Grandfather Hypertension maternal and Paternal Denies family history of Colon cancer Ovarian cancer Social History Smoking and tobacco status: never smoked Alcohol intake: current Alcohol intake frequency: holidays/special occasions only Alcohol type: wine History of recent travel: No Physical Exam Const: COMMON NORMALS: alert HENMT: COMMON NORMALS: atraumatic HEAD & SCALP: atraumatic MOUTH: moist mucous membranes not abnormal Eye: COMMON NORMALS: EOMs intact bilaterally and conjunctivae normal CONJUNCTIVA: Yes conjunctivae normal Neck/C-Spine: COMMON NORMALS: full ROM and supple Resp: COMMON NORMALS: normal respiratory effort and clear to auscultation bilaterally AUSCULTATION: clear to auscultation bilaterally Cardio: COMMON NORMALS: regular rate RATE: regular rate GI: COMMON NORMALS: Soft to palpation and non-tender PALPATION: Yes Soft to palpation Extremity: COMMON NORMALS: full ROM Neuro: SENSORIUM/ORIENTATION: Yes alert MOTOR EXAM: No Abnormal motor strength present and Other motor observations present (no focal motor deficits) OTHER: Mental status? Awake, alert, and oriented to self, year, month, location, and situation.? Following simple axial and appendicular commands.? Has appropriate fund of knowledge, comprehension, and insight.? Able to recall and understands pertinent aspects of medical history and current treatment status.? ? Language? Speech is fluent without word-finding difficulties.? Intact naming, expression, administrative receptionist, and repetition.? ? Cranial nerves? 2,3,4,6: PERRL, EOMI with no nystagmus. 5: Intact sensation to light touch, symmetric? 7: Smile symmetrical, no facial droop.? 8: Hearing grossly intact.? 9,10: Normal palate movement.? 11: Normal strength in trapezius bilaterally 12: Tongue protrudes midline.? ? Motor examination? Normal bulk & tone. Strength as follows (R/L): Delts (5/5), Biceps (5/5), Triceps (5/5), Wrist ext (5/5), hip flexors (5/5), plantarflexors (5/5), dorsiflexors (5/5). ? Sensation? Light Touch: Grossly intact and equal in upper and lower extremities bilaterally? Romberg: Negative.? Distal joint position sense intact ? Coordination? Gxdiuk-dc-lqgj-finger movements intact without dysmetria or past-pointing.? Rapid fingertaps: preserved amplitude without decriment.? No tremor, myoclonus or truncal ataxia.? ? Gait/stance? Steady, normal narrow base gait with appropriate arm swing and turning.? Tandem gait without hesitation or loss of balance. Psych: COMMON NORMALS: speech normal SPEECH: Yes normal speech MOOD & AFFECT: Yes euthymic mood Course Vital Signs: Vital signs: Vital Signs Temperature 97.6 F 04/09/22 14:22 Pulse Rate 63 04/09/22 14:22 Respiratory Rate 16 04/09/22 14:22 Blood Pressure 108/65 04/09/22 14:22 Pulse Oximetry 94 04/09/22 14:22 MDM - General Adult Medical Decision Making 56-year-old female history complex migraine on Topamax daily presenting to the emergency room for evaluation of syncope in the setting headache. On physical exam, patient neurologically intact. Patient is afebrile today with white count of 5.0. He has negative for any brain. CTA head and neck negative for any aneurysms. At the present time, given the fact the patient has had a persistent headache for the last month in the setting of the syncope, do not suspect this is subarachnoid hemorrhage or other acute intracranial pathologies. Received a headache cocktail including IVF, Reglan, Benadryl, Toradol, tylenol and magnesium with improvement in headache. I have given patient follow up with our case assistant to be seen by our [facility] Neurology for headache. Patient aware of a call from our case assistant to schedule for appointment(s) and verbalizes understanding of the importance of following up. Rx: Magnesium oxide, Tylenol, Reglan as needed for headache Disposition: Discharge. Patient counseled regarding diagnostic impression, treatment plan. Patient given ED strict return precautions to return for continuation, worsening, or development of new symptoms. Instructed to f/u w/ PCP regarding symptoms today. Patient verbalized understanding. Lab Data : 04/09/22 13:53 04/09/22 13:[address] 04/09/22 13:55 IMPRESSION: Negative head CT. Head/Neck CTA 04/09/22 14:16 IMPRESSION: No acute intracranial vascular abnormality identified. IMPRESSION: No acute extracranial vascular abnormality identified. REFERENCES: NASCET CRITERIA. The degree of internal carotid artery stenosis is based on NASCET criteria. Normal is no stenosis. Mild is less than 50% stenosis. Moderate is 50-69% stenosis. Severe is 70% to 99% stenosis. Total occlusion is no detectable patent lumen. Laboratory Results WBC 5.0 10^3/uL (4.0-10.0) 04/09/22 13:53 RBC 4.59 10^6/uL (4.1-5.3) 04/09/22 13:53 Hgb 12.7 g/dL (11.5-15.3) 04/09/22 13:53 Hct 38.0 % (37.0-47.0) 04/09/22 13:53 MCV 82.8 fl (81-99) 04/09/22 13:53 MCH 27.7 pg (28.0-34.0) L 04/09/22 13:53 MCHC 33.4 g/dL (30.0-36.0) 04/09/22 13:53 RDW 13.2 % (12.1-15.1) 04/09/22 13:53 Plt Count 182 10^3/cmm (130-400) 04/09/22 13:53 MPV 12.8 fL (7.4-10.4) H 04/09/22 13:53 Neut % (Auto) 55.1 % 04/09/22 13:53 Lymph % (Auto) 34.3 % 04/09/22 13:53 Cannon % (Auto) 7.6 % 04/09/22 13:53 Eos % (Auto) 2.4 % 04/09/22 13:53 Baso % (Auto) 0.4 % 04/09/22 13:53 Neut # (Auto) 2.76 10^3/uL (1.8-7.7) 04/09/22 13:53 Lymph # (Auto) 1.7 10^3/uL (0.8-4.8) 04/09/22 13:53 Cannon # (Auto) 0.4 10^3/uL (0.2-0.9) 04/09/22 13:53 Eos # (Auto) 0.1 10^3/uL (0.0-0.8) 04/09/22 13:53 Baso # (Auto) 0.0 10^3/uL (0.0-0.1) 04/09/22 13:53 Nucleated RBC % (auto) 0 % 04/09/22 13:53 Nucleated RBCs # 0.0 /100WBC 04/09/22 13:53 Sodium 140 mmol/L (136-145) 04/09/22 13:53 Potassium 3.8 mmol/L (3.5-5.1) 04/09/22 13:53 Chloride 107 mmol/L (98-107) 04/09/22 13:53 Carbon Dioxide 20 mmol/L (22-29) L 04/09/22 13:53 Anion Gap 16.8 (5-19) 04/09/22 13:53 BUN 11 mg/dL (6-20) 04/09/22 13:53 Creatinine 1.2 mg/dL (0.5-0.9) H 04/09/22 13:53 GFR Calculation 46.6 mL/min (90-130) L 04/09/22 13:53 Glucose 93 mg/dL (65-115) 04/09/22 13:53 Calculated Osmolality 289 mOsm/kg (285-295) 04/09/22 13:53 Calcium 9.0 mg/dL (8.5-10.5) 04/09/22 13:53 Troponin T Baseline 7 ng/L (0-10) 04/09/22 13:53 Troponin T 120 Minute 6.09 ng/L (0-10) 04/09/22 16:11 Imaging Data Other Imaging: Radiologist's impression: [place] [address] CT Scan Report Signed Patient: Anne Payne Unit #: [id number] : 1965 Age/Sex: 56 / F ADM Date: 04/09/22 Loc: ER Room/Bed: Attending Dr: Ordering Provider/Ordering MD: Truman Joy MD Date of Service: 04/09/22 Procedure(s): CT angio headneck* [id number] Accession Number(s): [id number] Report Number: [id number] PROCEDURE INFORMATION: Exam: CTA Head With Contrast, Arteriography Exam date and time: 04/09/2022 2:46 PM Age: 56 years old Clinical indication: Pain; Headache; Patient HX: HX of melanoma TECHNIQUE: Imaging protocol: Computed tomographic angiography of the head with contrast. Exam focused on the arteries. 3D rendering (Not supervised by radiologist): MIP reconstructed images were created by the technologist. Radiation optimization: All CT scans at this facility use at least one of these dose optimization techniques: automated exposure control; mA and/or kV adjustment per patient size (includes targeted exams where dose is matched to clinical indication); or iterative reconstruction. Contrast material: OMNI 350; Contrast volume: 95 ml; Contrast route: INTRAVENOUS (IV);? COMPARISON: CT head wo con* [id number] 04/09/2022 2:16 PM RADIATION DOSE METRICS: Total DLP (mGy-cm): 1929. FINDINGS: ANTERIOR CIRCULATION: Right internal carotid artery: Unremarkable. Intracranial segment is patent with no significant stenosis. No aneurysm. Right middle cerebral artery: Unremarkable. No occlusion or significant stenosis. No aneurysm.? Right anterior cerebral artery: Unremarkable. No occlusion or significant stenosis. No aneurysm.? Left internal carotid artery: Unremarkable. Intracranial segment is patent with no significant stenosis. No aneurysm. Left middle cerebral artery: Unremarkable. No occlusion or significant stenosis. No aneurysm.? Left anterior cerebral artery: Unremarkable. No occlusion or significant stenosis. No aneurysm.? POSTERIOR CIRCULATION: Right vertebral artery: Unremarkable. No occlusion or significant stenosis. No aneurysm.? Left vertebral artery: Unremarkable. No occlusion or significant stenosis. No aneurysm.? Basilar artery: Unremarkable. No occlusion or significant stenosis. No aneurysm. Right posterior cerebral artery: Unremarkable. No occlusion or significant stenosis. No aneurysm.? Left posterior cerebral artery: Unremarkable. No occlusion or significant stenosis. No aneurysm.? Brain: No intracranial enhancing lesions identified. Cerebral ventricles: No ventriculomegaly. Bones/joints: Unremarkable. No acute fracture. Soft tissues: Unremarkable. PROCEDURE INFORMATION: Exam: CTA Neck With Contrast Exam date and time: 04/09/2022 2:46 PM Age: 56 years old Clinical indication: Pain; Headache; Patient HX: HX of melanoma TECHNIQUE: Imaging protocol: Computed tomographic angiography of the neck with contrast. 3D rendering (Not supervised by radiologist): MIP reconstructed images were created by the technologist. Radiation optimization: All CT scans at this facility use at least one of these dose optimization techniques: automated exposure control; mA and/or kV adjustment per patient size (includes targeted exams where dose is matched to clinical indication); or iterative reconstruction. Contrast material: OMNI 350; Contrast volume: 95 ml; Contrast route: INTRAVENOUS (IV);? COMPARISON: CT head con* [id number] 04/09/2022 2:16 PM RADIATION DOSE METRICS: Total DLP (mGy-cm): 1929. FINDINGS: Right common carotid artery: No stenosis. No dissection or occlusion. Right internal carotid artery: No stenosis of the extracranial segment. No dissection or occlusion. Right external carotid artery: No occlusion or stenosis of the origin.? Left common carotid artery: No stenosis. No dissection or occlusion. Left internal carotid artery: No stenosis of the extracranial segment. No dissection or occlusion. Left external carotid artery: No occlusion or stenosis of the origin.? Right vertebral artery: No stenosis. No dissection or occlusion. Left vertebral artery: No stenosis. No dissection or occlusion. Thyroid: Right thyroid hypodensity measuring 4.1 mm. No specific follow-up imaging is recommended. Dental: Edentulous maxilla and mandible. Lymph nodes: No significant lymphadenopathy. Soft tissues: No skin lesions identified. Bones/joints: No destructive bony process identified. CT/CT angio headneck* [id number] IMPRESSION: No acute intracranial vascular abnormality identified. ? ? IMPRESSION: No acute extracranial vascular abnormality identified. ? REFERENCES: NASCET CRITERIA. The degree of internal carotid artery stenosis is based on NASCET criteria. Normal is no stenosis. Mild is less than 50% stenosis. Moderate is 50-69% stenosis. Severe is 70% to 99% stenosis. Total occlusion is no detectable patent lumen. ? Dictated By: Juwan Cunha MD Signed By: Juwan Cunha MD Signed Date/Time: 04/09/22 1647 DD/ 1446 Anne Payne?(c)??56??F??1965 ? Allergy/Adv: risperidone, Sulfa (Sulfonamide Antibiotics) (More??) Close Head/Neck CTA (Signed) Jose Cunha - 04/09/[address] (Signed) Ebony Meléndez - 04/09/22 Mammogram Diagnostic (Signed) Ebony Meléndez - 04/06/22 Mammogram Screening (Signed) Ebony Meléndez - 03/26/22 Abdomen/Pelvis CT (Signed) Tony Barragan - 08/02/21 Shoulder X-Ray (Signed) Morgan Rodriguez - 06/11/21 Upper GI and Small Bowel X-Ray (Signed) Last Mejias - 06/05/21 Abdomen/Pelvis CT (Signed) Shuana Buckley - 03/13/21 Abdomen/Pelvis CT (Signed) Jose Cunha - 01/15/21 Chest X-Ray (Signed) JoellenSeb - 01/14/21 Abdomen/Pelvis CT (Signed) Ebony Meléndez - 01/12/21 Head MRI (Signed) Morgan Rodriguez - 11/07/20 Lumbar Spine X-Ray (Signed) Morgan Rodriguez - 10/20/20 C-Arm Fluoroscopy (Signed) Rell Gómez - 10/20/20 Mammogram Screening (Signed) Last Mejias - 10/06/20 Lumbar Spine MRI (Signed) Ebony Meléndez - 08/26/20 Echocardiogram Ultrasound (Signed) Harjit Simon - 08/08/20 Carotid Doppler Study (Signed) Ebony Meléndez - 08/08/20 Lumbar Spine X-Ray (Signed) Last Mejias - 08/05/20 Chest X-Ray (Signed) Morgan Rodriguez - 06/27/20 Chest X-Ray (Signed) Seb Ying - 06/07/[address] (Signed) TyrellColton - 04/15/[address] (Signed) Minal Ellison - 11/13/[address] (Signed) Minal Ellison - 11/13/19 Chest X-Ray (Signed) Morgan Rodriguez - 11/13/[address] (Signed) Minal Ellison - 11/13/19 Shoulder X-Ray (Signed) Ebony Meléndez - 10/29/19 Launch?Image [address] [place] [address] CT Scan Report Signed Patient: Anne Payne Unit #: [id number] : 1965 Age/Sex: 56 / F ADM Date: 04/09/22 Loc: ER Room/Bed: Attending Dr: Ordering Provider/Ordering MD: Truman Joy MD Date of Service: 04/09/22 Procedure(s): CT head wo con* [id number] Accession Number(s): [id number] Report Number: [id number] WS: [id number] CT HEAD NONCONTRAST HISTORY: headache TECHNIQUE: Contiguous axial imaging performed through the brain in 2.5 mm imaging. Bone and soft tissue windows. Sagittal and coronal reformats reviewed.? [facility] scans at [facility] use at least one of these dose optimization techniques: automated exposure control; mA and/or kV adjustment per patient size (includes targeted exams where dose is matched to clinical indication); or iterative reconstruction. DLP: 837.5 mGy.cm COMPARISON: 04/15/2020 No acute intracranial hemorrhage, midline shift or mass effect. No atrophy or prior infarcts or herniation. Ventricles:? Normal size with no hydrocephalus. Paranasal sinuses: As visualized are clear. Mastoid air cells: Well pneumatized. Calvarium and scalp: Skull is intact with no soft tissue edema or swelling. CT/CT head wo con* [id number] IMPRESSION: ? Negative head CT. ? Dictated By: Ebony Meléndez DO Signed By: Ebony Meléndez DO Signed Date/Time: 04/09/221452 DD/ 145 Discharge Plan Discharge Patient Disposition: Home Clinical Impression: Headache, Syncope and collapse Condition: Stable Prescriptions: New acetaminophen 500 mg tablet 500 mg PO Q6H PRN (Reason: pain) 5 Days Qty: 20 0RF Reglan 5 mg tablet 5 mg PO BID PRN (Reason: nausea and vomiting) 5 Days Qty: 10 0RF magnesium oxide 400 mg magnesium capsule 400 mg PO DAILY PRN (Reason: headache) 10 Days Qty: 10 0RF No Action clonidine HCl 0.1 mg tablet 0.1 mg PO DAILY PRN (Reason: high bp) Qty: 90 3RF carvedilol 25 mg tablet 25 mg PO BID Qty: 180 3RF ondansetron HCl 4 mg tablet 4 mg PO Q6H PRN (Reason: nausea and vomiting) Qty: 30 1RF topiramate [Topamax] 25 mg tablet 25 mg PO BID 0RF sertraline [Zoloft] 50 mg tablet 50 mg PO .morning Qty: 30 3RF Rx Instructions: Take one tablet every morning trazodone 100 mg tablet 100 mg PO BEDTIME PRN (Reason: sleep) Qty: 30 3RF Rx Instructions: Take one tablet at bedtime as needed for sleep acyclovir 400 mg tablet 400 mg PO BID PRN0RF fluconazole [Diflucan] 200 mg tablet 200 mg PO DAILY Qty: 5 0RF pregabalin 100 mg capsule 100 mg PO TID@08,13,20 Qty: 90 1RF pantoprazole 40 mg tablet,delayed release (DR/EC) 40 mg PO DAILY@08 Qty: 90 0RF promethazine 25 mg tablet 25 mg PO Q6H PRN (Reason: prn headache/migraine) Qty: 20 0RF Discharge Orders: Discharge ED (Routine); Ordered 04/09/22 Ordered By: Truman Joy Referrals: Roseanne Marin PA [Primary Care Provider] - Discharge Diet: Advance as tolerated Discharge Activity: Increase activity as tolerated Patient Instructions: Syncope (ED), Acute Headache (ED) Activity Restrictions/Additional Instructions: Please come back to the emergency room for any more breakthrough episodes of passing out. Come back if any weakness in her arms, drooling, difficulty speaking, any neurological symptoms, chest pain/shortness of breath/palpitation or any new or concerning issues. Please do not swim, bathe, operate heavy machinery or drive a vehicle unattended. Coding Level of Care Code ED Coke Production Heater for Melag Fwd Exam Comprehensive
--- NOTE | 2022-04-09 14:16 | CTR_ITS ---
PROCEDURE INFORMATION: Exam: CTA Head With Contrast, Arteriography Exam date and time: 04/09/2022 2:46 PM Age: 56 years old Clinical indication: Pain; Headache; Patient HX: HX of melanoma TECHNIQUE: Imaging protocol: Computed tomographic angiography of the head with contrast. Exam focused on the arteries. 3D rendering (Not supervised by radiologist): MIP reconstructed images were created by the technologist. Radiation optimization: All CT scans at this facility use at least one of these dose optimization techniques: automated exposure control; mA and/or kV adjustment per patient size (includes targeted exams where dose is matched to clinical indication); or iterative reconstruction. Contrast material: OMNI 350; Contrast volume: 95 ml; Contrast route: INTRAVENOUS (IV); COMPARISON: CT head wo con* [id number] 04/09/2022 2:16 PM RADIATION DOSE METRICS: Total DLP (mGy-cm): 1930.52 FINDINGS: ANTERIOR CIRCULATION: Right internal carotid artery: Unremarkable. Intracranial segment is patent with no significant stenosis. No aneurysm. Right middle cerebral artery: Unremarkable. No occlusion or significant stenosis. No aneurysm. Right anterior cerebral artery: Unremarkable. No occlusion or significant stenosis. No aneurysm. Left internal carotid artery: Unremarkable. Intracranial segment is patent with no significant stenosis. No aneurysm. Left middle cerebral artery: Unremarkable. No occlusion or significant stenosis. No aneurysm. Left anterior cerebral artery: Unremarkable. No occlusion or significant stenosis. No aneurysm. POSTERIOR CIRCULATION: Right vertebral artery: Unremarkable. No occlusion or significant stenosis. No aneurysm. Left vertebral artery: Unremarkable. No occlusion or significant stenosis. No aneurysm. Basilar artery: Unremarkable. No occlusion or significant stenosis. No aneurysm. Right posterior cerebral artery: Unremarkable. No occlusion or significant stenosis. No aneurysm. Left posterior cerebral artery: Unremarkable. No occlusion or significant stenosis. No aneurysm. Brain: No intracranial enhancing lesions identified. Cerebral ventricles: No ventriculomegaly. Bones/joints: Unremarkable. No acute fracture. Soft tissues: Unremarkable. PROCEDURE INFORMATION: Exam: CTA Neck With Contrast Exam date and time: 04/09/2022 2:46 PM Age: 56 years old Clinical indication: Pain; Headache; Patient HX: HX of melanoma TECHNIQUE: Imaging protocol: Computed tomographic angiography of the neck with contrast. 3D rendering (Not supervised by radiologist): MIP reconstructed images were created by the technologist. Radiation optimization: All CT scans at this facility use at least one of these dose optimization techniques: automated exposure control; mA and/or kV adjustment per patient size (includes targeted exams where dose is matched to clinical indication); or iterative reconstruction. Contrast material: OMNI 350; Contrast volume: 95 ml; Contrast route: INTRAVENOUS (IV); COMPARISON: CT head wo con* [id number] 04/09/2022 2:16 PM RADIATION DOSE METRICS: Total DLP (mGy-cm): 1930.52 FINDINGS: Right common carotid artery: No stenosis. No dissection or occlusion. Right internal carotid artery: No stenosis of the extracranial segment. No dissection or occlusion. Right external carotid artery: No occlusion or stenosis of the origin. Left common carotid artery: No stenosis. No dissection or occlusion. Left internal carotid artery: No stenosis of the extracranial segment. No dissection or occlusion. Left external carotid artery: No occlusion or stenosis of the origin. Right vertebral artery: No stenosis. No dissection or occlusion. Left vertebral artery: No stenosis. No dissection or occlusion. Thyroid: Right thyroid hypodensity measuring 4.1 mm. No specific follow-up imaging is recommended. Dental: Edentulous maxilla and mandible. Lymph nodes: No significant lymphadenopathy. Soft tissues: No skin lesions identified. Bones/joints: No destructive bony process identified. CT/CT angio headneck* [id number] IMPRESSION: No acute intracranial vascular abnormality identified. IMPRESSION: No acute extracranial vascular abnormality identified. REFERENCES: NASCET CRITERIA. The degree of internal carotid artery stenosis is based on NASCET criteria. Normal is no stenosis. Mild is less than 50% stenosis. Moderate is 50-69% stenosis. Severe is 70% to 99% stenosis. Total occlusion is no detectable patent lumen.
[2022-04-09] MEDS: acetaminophen 500 mg Tablet PO (14:20)
[2022-04-09 14:22] VITALS: BP 108/65; PULSE 63; RESP 16; TEMP 36.4; O2SAT 94
[2022-04-09] MEDS: sodium chloride 0.9% 1,000 ML 999 ML IV (14:32)
[2022-04-09 14:49] LABS: Anion Gap 16.8 (5-19); Blood Urea Nitrogen 11 mg/dL (6-20); Carbon Dioxide 20 mmol/L (22-29); Chloride 107 mmol/L (98-107); Glomerular Filtration Rate 46.6 mL/min (90-130); Glucose 93 mg/dL (65-115); Osmolality Calculated 289 mOsm/kg (285-295); Potassium 3.8 mmol/L (3.5-5.1); Sodium 140 mmol/L (136-145)
[2022-04-09 14:51] LABS: Troponin(5th) Baseline 7 ng/L (0-10)
[2022-04-09] MEDS: magnesium sulfate premix 2 GM/50 ML PIGGYBACK IV (15:39)
[2022-04-09] MEDS: diphenhydrAMINE 50 mg/mL SDV 1mL IVP (15:40)
[2022-04-09] MEDS: ketorolac 30 mg/mL INJ IVP (15:40)
[2022-04-09] MEDS: metoclopramide 5 mg/mL SDV 2 mL IVP (15:40)
--- NOTE | 2022-04-09 15:55 | ECG_ITS ---
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 Measurements Intervals [place] Rate: 65 P: 50 SC: 168 QRS: 31 QRSD: 80 T: 50 QT: 391 QTc: 408 Interpretive Statements SINUS RHYTHM Compared to ECG 04/09/2022 14:09:43 No significant changes Electronically Signed On 04-10-2022 12:33:51 CDT by Seb Chawla M.D. [id number]
[2022-04-09 16:48] LABS: Troponin 5 2HR 6.09 ng/L (0-10)
[2022-04-09 16:54] LABS: Troponin 5 2HR Delta -0.91 ABS# (0-10)
[2022-04-09 17:29] VITALS: BP 122/67; PULSE 71; RESP 17; O2SAT 98
--- NOTE | 2022-04-13 13:53 | DCPLANNER ---
Addendum entered by Moni Duran 06/01/22 16:18: Patient had a follow up appointment scheduled with neurology - patient did attend appointment. Addendum entered by Moni Duran 05/03/22 15:01: Patient has a follow up appointment scheduled for Thursday May 12, 2022 at 10:[address] Powell. Clinic will call patient with appointment information. Original Note: materials manager had message to schedule a follow up appointment for patient with neurology. materials manager sent patients information to the front office staff at neurology. Patients information will be printed and reviewed. Clinic will call patient with appointment information.
== END 2022-04-09 17:32 | disposition home or self-care (01) ==
PROVIDERS: Emergency Provider Emergency Medicine; PCP Physician Assistant
DX: R55 Syncope and collapse (principal); R51.9 Headache, unspecified; I10 Essential (primary) hypertension
CPT/HCPCS: 70450; 70496; 70498; 80048; 84484; 85025; 93005; 96365; 96375; 99285; J1200; J1885; J2765; J3475; J7030; Q9967

== ENCOUNTER → 2022-04-20 11:36 | Outpatient (BNVA) | payer MEDICARE, MEDICAID, SELFPAY | PROVIDERS: PCP Physician Assistant; Visit Provider Internal Medicine Cardiovascular Disease | DX: R55 Syncope and collapse (principal); R00.0 Tachycardia, unspecified; I10 Essential (primary) hypertension; F33.3 Major depressive disorder, recurrent, severe with psychotic symptoms | CPT/HCPCS: 99213; 99214 ==

== ENCOUNTER → 2022-05-04 15:42 | Outpatient (BNVA) | payer MEDICARE, MEDICAID, SELFPAY | PROVIDERS: PCP Physician Assistant; Visit Provider Obstetrics & Gynecology | DX: R10.2 Pelvic and perineal pain (principal) | CPT/HCPCS: 76830; 76856 ==

== ENCOUNTER → 2022-05-12 09:44 | Outpatient (BNVA) | payer MEDICARE, MEDICAID, SELFPAY | PROVIDERS: PCP Physician Assistant; Visit Provider Specialist | DX: R55 Syncope and collapse (principal); G43.711 Chronic migraine without aura, intractable, with status migrainosus; F44.5 Conversion disorder with seizures or convulsions; F60.3 Borderline personality disorder; F33.3 Major depressive disorder, recurrent, severe with psychotic symptoms; G31.84 Mild cognitive impairment of uncertain or unknown etiology | CPT/HCPCS: 96116; 99214; 99215 ==

== ENCOUNTER → 2022-05-17 14:53 | Outpatient (BNVA) | payer MEDICARE, MEDICAID, SELFPAY | PROVIDERS: PCP Physician Assistant; Referring Provider Specialist; Visit Provider Specialist | DX: F44.5 Conversion disorder with seizures or convulsions (principal); R55 Syncope and collapse | CPT/HCPCS: 95816 ==

== ENCOUNTER 2022-06-22 12:08 | Outpatient (CLI) | payer MEDICARE, MEDICAID, SELFPAY ==
--- NOTE | 2022-06-22 12:14 | MM_ITS ---
WS: [id number] STEREOTACTIC LEFT BREAST BIOPSY WITH VACUUM ASSISTANCE. History: Heterogeneous LEFT breast calcifications. Biopsy recommended for suspicious calcifications. Comparison: April 06, 2022 Procedure, risks, and complications were discussed the patient who agreed to proceed. Prior imaging w as reviewed. Cluster of calcifications within the LEFT breast are localized. Stereotactic imaging was performed. P atient was prepped and draped in usual sterile fashion. After 1% lidocaine, calcifications were targe chas stereotactically in the LEFT breast. Small incision was made. Needle advanced into the cluster of calcifications LEFT breast with imaging demonstrating appropriate position relative to the calcifica tions. Multiple vacuum-assisted core biopsies were obtained. Postprocedure imaging demonstrates calci fications within the biopsy specimen. The biopsy cavity was lavaged. Titanium clip was placed at the biopsy site. Postprocedure imaging dem onstrates clip in good position. No immediate complications. MM/[place] [id number] IMPRESSION: 1. Uncomplicated vacuum-assisted stereotactic biopsy of calcifications in the LEFT breast 2:00 position. 2. Pathology demonstrates ductal carcinoma in situ, grade 3 with comedo necros is. 3. Recommend breast surgery consultation for surgical resection. PATHOLOGY: Ductal carcinoma in situ, grade 3 with comedo necrosis. Microcalcifications identified within nonneoplastic tissue and DCIS Breast profile studies have been performed and will be reported separately by p athology. Microinvasion carcinoma not excluded. RECOMMEND BREAST SURGERY EVALUATION FOR SURGICAL RESECTION.
--- NOTE | 2022-06-22 12:14 | MM_ITS ---
WS: [id number] STEREOTACTIC LEFT BREAST BIOPSY WITH VACUUM ASSISTANCE. History: Heterogeneous LEFT breast calcifications. Biopsy recommended for suspicious calcifications. Comparison: April 06, 2022 Procedure, risks, and complications were discussed the patient who agreed to proceed. Prior imaging w as reviewed. Cluster of calcifications within the LEFT breast are localized. Stereotactic imaging was performed. P atient was prepped and draped in usual sterile fashion. After 1% lidocaine, calcifications were targe chas stereotactically in the LEFT breast. Small incision was made. Needle advanced into the cluster of calcifications LEFT breast with imaging demonstrating appropriate position relative to the calcifica tions. Multiple vacuum-assisted core biopsies were obtained. Postprocedure imaging demonstrates calci fications within the biopsy specimen. The biopsy cavity was lavaged. Titanium clip was placed at the biopsy site. Postprocedure imaging dem onstrates clip in good position. No immediate complications. MM/MM surgical specimen LT IMPRESSION: 1. Uncomplicated vacuum-assisted stereotactic biopsy of calcifications in the LEFT breast 2:00 position. 2. Pathology demonstrates ductal carcinoma in situ, grade 3 with comedo necros is. 3. Recommend breast surgery consultation for surgical resection. PATHOLOGY: Ductal carcinoma in situ, grade 3 with comedo necrosis. Microcalcifications identified within nonneoplastic tissue and DCIS Breast profile studies have been performed and will be reported separately by p athology. Microinvasion carcinoma not excluded. RECOMMEND BREAST SURGERY EVALUATION FOR SURGICAL RESECTION.
--- NOTE | 2022-06-22 12:14 | MM_ITS ---
WS: [id number] STEREOTACTIC LEFT BREAST BIOPSY WITH VACUUM ASSISTANCE. History: Heterogeneous LEFT breast calcifications. Biopsy recommended for suspicious calcifications. Comparison: April 06, 2022 Procedure, risks, and complications were discussed the patient who agreed to proceed. Prior imaging w as reviewed. Cluster of calcifications within the LEFT breast are localized. Stereotactic imaging was performed. P atient was prepped and draped in usual sterile fashion. After 1% lidocaine, calcifications were targe chas stereotactically in the LEFT breast. Small incision was made. Needle advanced into the cluster of calcifications LEFT breast with imaging demonstrating appropriate position relative to the calcifica tions. Multiple vacuum-assisted core biopsies were obtained. Postprocedure imaging demonstrates calci fications within the biopsy specimen. The biopsy cavity was lavaged. Titanium clip was placed at the biopsy site. Postprocedure imaging dem onstrates clip in good position. No immediate complications. MM/MM biopsy LT vac assist [id number] IMPRESSION: 1. Uncomplicated vacuum-assisted stereotactic biopsy of calcifications in the LEFT breast 2:00 position. 2. Pathology demonstrates ductal carcinoma in situ, grade 3 with comedo necros is. 3. Recommend breast surgery consultation for surgical resection. PATHOLOGY: Ductal carcinoma in situ, grade 3 with comedo necrosis. Microcalcifications identified within nonneoplastic tissue and DCIS Breast profile studies have been performed and will be reported separately by p athology. Microinvasion carcinoma not excluded. RECOMMEND BREAST SURGERY EVALUATION FOR SURGICAL RESECTION.
[2022-06-28 14:18] LABS: Breast Profile ER,PR,HER2,Ki-6 See Report
== END 2022-06-22 12:09 | disposition home or self-care (01) ==
LOC: RAD 12:08
PROVIDERS: PCP Physician Assistant; Visit Provider Physician Assistant
DX: R92.1 Mammographic calcification found on diagnostic imaging of breast (principal); D05.92 Unspecified type of carcinoma in situ of left breast
CPT/HCPCS: 19081; 77065; 88305; 88361; 88374

== ENCOUNTER 2022-07-01 10:49 | Outpatient (CLI) | payer MEDICARE, MEDICAID, SELFPAY ==
--- NOTE | 2022-07-01 11:00 | MR_ITS ---
WS: [id number] MRI BRAIN WITHOUT CONTRAST HISTORY: R55 - Syncope and collapse COMPARISON: 11/07/2020 TECHNIQUE: Diffusion imaging, multiplanar T1, T2 and FLAIR imaging obtained. No evidence for acute infarct or hemorrhage. Henry-white matter differentiation is normal. Very minimal atrophy is stable. Small foci of increased T2 signal in the frontal subcortical white ma tter, LEFT greater than RIGHT. No interval change. Ventricles and extra-axial spaces are normal. No inferior displacement of cerebellar tonsils. The sella turcica and pituitary gland are unremarkabl e. Dural venous sinuses and quinault of [place] demonstrate no abnormality on this unenhanced studies. Paranasal sinuses: Clear. Mastoid air cells: Normal. Calvarium and scalp: Intact. MR/MR head wo con* [id number] IMPRESSION: 1. No acute intracranial hemorrhage or edema. 2. No acute infarct. 3. Stable very small foci of T2 hyperintensity in the subcortical white matter . Nonspecific but can be seen with migraines. No change since 02/22/2017.
== END 2022-07-01 10:50 | disposition home or self-care (01) ==
LOC: RAD 10:50
PROVIDERS: PCP Physician Assistant; Visit Provider Specialist
DX: R55 Syncope and collapse (principal); R41.3 Other amnesia
CPT/HCPCS: 70551; 95816

== ENCOUNTER → 2022-07-06 09:19 | Outpatient (BNVA) | payer MEDICARE, MEDICAID, SELFPAY | PROVIDERS: PCP Physician Assistant; Visit Provider Specialist | DX: R56.9 Unspecified convulsions (principal); G43.711 Chronic migraine without aura, intractable, with status migrainosus; F33.3 Major depressive disorder, recurrent, severe with psychotic symptoms; C50.919 Malignant neoplasm of unspecified site of unspecified female breast | CPT/HCPCS: 99214 ==

== ENCOUNTER 2022-09-02 12:52 | Emergency (ER) | payer MEDICARE, MEDICAID, SELFPAY ==
[2022-09-02 13:05] VITALS: BP 83/49
[2022-09-02 13:06] VITALS: PULSE 103; RESP 18; TEMP 37.6; O2SAT 95
--- NOTE | 2022-09-02 13:32 | ED_ITS ---
HPI - Syncope General: Chief Complaint: Syncope Stated Complaint: Passed out, High bp, Headache Time Seen by Provider: 09/02/22 13:25 Source: patient Mode of arrival: ambulatory History of Present Illness: 57-year-old female who presents to the emergency room after 2 syncopal episode at home she was standing in the bathroom for p eriod of time really lightheaded and dizzy and passed out. She did not strike her head but the second time she fell her brought her in. She recently had a mastectomy. She is reporting little bit of drainage from the. She has very low-grade fever no recent cough. MD complaint: almost passed out and collapsed Onset (ago): hour(s) Prodromal symptoms: lightheaded Context: standing up Injuries sustained associated with event: none Associated symptoms: Deny abdominal pain, chest pain, fever(s), headache(s), lightheadedness, nausea, short of breath, vertigo or weakness History: other (Recent mastectomy drain still in place) Treatments prior to arrival: none Review of Systems Const: Denies: fever(s) ENMT: Denies: throat pain, ear or mastoid pain, nasal discharge or nasal congestion Card: Denies: chest pain or lightheadedness Resp: Denies: dyspnea, productive cough or non-productive cough GI: Denies: abdominal pain or nausea : Denies: flank pain, difficulty voiding, dysuria, urinary frequency or urinary urgency Skin/Breast: Denies: rash or pruritus Neuro: Denies: headache(s) or vertigo PFS ED PFSH: Medical History Borderline personality disorder Depression with anxiety Fear of insects (Unknown) Specifically tics Herpes genitalia History of malignant melanoma Hot flashes HTN (hypertension) with goal to be determined Inappropriate sinus tachycardia Irritable bowel disease Long-term current use of opiate analgesic Lumbar radiculitis Major depressive disorder, recurrent, severe with psychotic symptoms [facility] managing Malignant hypertension No pertinent past medical history neghx: dm,thyroid,dvt/pe PCP: Roseanne Marin Pain management contract signed Psychiatric care Surgical History Bowel obstruction (~01/15/21) surgical repair by DR. Lambert H/O tubal ligation (~2008) History of augmentation of both breasts (~2012) SILICONE IMPLANTS History of colonoscopy Hx of abdominoplasty (~2009) Hx of section (~2008) x 1 Hx of decompressive lumbar laminectomy ---2014 L5-S1 [facility] IN [place], [place] ---10/20/2020 Revision; Dr Dalia ALBERT Hx of hernia repair (~2012) ventral (patient thinks mesh was used) Hx of hysterectomy (~2008) CHRISTINA-- ovaries spared. Intra-abdominal adhesions (~10/2020) adhesiolysis / incidental appendectomy-- at same time as bowel obstruction Family History Mother Breast cancer dx age unknown Hypertension Grandmother Breast cancer Maternal--dx age 60's Hypertension Maternal and Paternal Sister No problems noted. Daughter Uterine cancer dx age 28 Father Diabetes Hypertension Stroke Grandfather Hypertension maternal and Paternal Denies family history of Colon cancer Ovarian cancer Social History Smoking and tobacco status: never smoked Alcohol intake: current Alcohol intake frequency: holidays/special occasions only Alcohol type: wine History of recent travel: No Physical Exam Const: GENERAL APPEARANCE: cooperative and comfortable ORIENTATION/CON SCIOUSNESS: Yes awake, Yes oriented to person, Yes oriented to place and Yes oriented to time HENMT: COMMON NORMALS: normocephalic, atraumatic and hearing grossly normal bilaterally HEAD & SCALP: normocephalic and atraumatic Chest: OTHER: Drainage in the tubes and bulbs is serous. There is mild redness along the incision line on the right anterior chest wall the left appears normal. There is dry eschar in place with Betadine staining of the eschars bilaterally. No purulent drainage from either incision site. No fluctuance with palpation Resp: COMMON NORMALS: normal respiratory effort, No retractions, No use of accessory muscles and clear to auscultation bilaterally AUSCULTATION: clear to auscultation bilaterally Cardio: COMMON NORMALS: regular rate, regular rhythm and No murmurs present (Cardio) RATE: regular rate RHYTHM: regular rhythm GI: COMMON NORMALS: Soft to palpation and No hepatosplenomegaly present AUSCULTATION: Yes normoactive bowel sounds PALPATION: Yes Soft to palpation, No Tenderness to palpation present (GI), No Guarding due to palpation present (GI) and Yes No hepatosplenomegaly present Extremity: COMMON NORMALS: normal to inspection, capillary refill normal, no clubbing, cyanosis or edema, no calf tenderness and no pedal edema Neuro: SENSORIUM/ORIENTATION: Yes oriented to person, Yes oriented to place and Yes oriented to time Skin: COMMON NORMALS: no rashes or lesions noted GENERAL SKIN EXAM: no rashes or lesions noted Course Vital Signs: Vital signs: Vital Signs Temperature 99.6 F 09/02/22 13:06 Pulse Rate 103 H 09/02/22 13:06 Respiratory Rate 18 09/02/22 13:06 Blood Pressure 135/56 09/02/22 14:49 Pulse Oximetry 95 09/02/22 13:06 Oxygen Delivery Me thod 09/02/22 13:06 MDM - Syncope Medical Decision Making Patient mildly anemic compared to preoperatively. She has been standing for period time I think that is what caused her syncopal episode. In addition to this she is on carvedilol which probably also contributed to it. Blood pressure initially was pretty significantly low improved with fluids. She has a low- grade temp she has no other symptoms. We will go ahead and treat her with some Keflex for a cellulitis based on the appearance of the chest wall. Return if she has any other symptoms. We have asked her to stop the clonidine potassium and Lasix at this point I do not think she needs these and are probably contributing to the episode she had today she should follow-up with her primary care doctor early next week. Medical Records I reviewed the patient's medical records. Lab Data I reviewed the patient's lab results. 09/02/22 13:37 09/02/22 13:[address] 09/02/22 13:37 IMPRESSION: No acute intracranial abnormality. Chest X-Ray 09/02/22 13:38 IMPRESSION: 1. No acute findings. 2. Bilateral mastectomy Laboratory Results WBC 7.6 10^3/uL (4.0-10.0) 09/02/22 13:37 RBC 4.16 10^6/uL (4.1-5.3) 09/02/22 13:37 Hgb 10.8 g/dL (11.5-15.3) L 09/02/22 13:37 Hct 34.6 % (37.0-47.0) L 09/02/22 13:37 MCV 83.2 fl (81-99) 09/02/22 13:37 MCH 26.0 pg (28.0-34.0) L 09/02/22 13:37 MCHC 31.2 g/dL (30.0-36.0) 09/02/22 13:37 RDW 14.7 % (12.1-15.1) 09/02/22 13:37 Plt Count 165 10^3/cmm (130-400) 09/02/22 13:37 MPV 11.9 fL (7.4-10.4) H 09/02/22 13:37 Neut % (Auto) 73.2 % 09/02/22 13:37 Lymph % (Auto) 16.2 % 09/02/22 13:37 Sandoval % (Auto) 8.3 % 09/02/22 13:37 Eos % (Auto) 1.7 % 09/02/22 13:37 Baso % (Auto) 0.3 % 09/02/22 13:37 Neut # (Auto) 5.56 10^3/uL (1.8-7.7) 09/02/22 13:37 Lymph # (Auto) 1.2 10^3/uL (0.8-4.8) 09/02/22 13:37 Sandoval # (Auto) 0.6 10^3/uL (0.2-0.9) 09/02/22 13:37 Eos # (Auto) 0.1 10^3/uL (0.0-0.8) 09/02/22 13:37 Baso # (Auto) 0.0 10^3/uL (0.0-0.1) 09/02/22 13:37 Nucleated RBC % (auto) 0 % 09/02/22 13:37 Nucleated RBCs # 0.0 /100WBC 09/02/22 13:37 Sodium 138 mmol/L (136-145) 09/02/22 13:37 Potassium 4.5 mmol/L (3.5-5.1) 09/02/22 13:37 Chloride 102 mmol/L (98-107) 09/02/22 13:37 Carbon Dioxide 26 mmol/L (22-29) 09/02/22 13:37 Anion Gap 14.5 (5-19) 09/02/22 13:37 BUN 15 mg/dL (6-20) 09/02/22 13:37 Creatinine 1.1 mg/dL (0.5-0.9) H 09/02/22 13:37 GFR Calculation 51.4 mL/min (90-130) L 09/02/22 13:37 Glucose 121 mg/dL (65-115) H 09/02/22 13:37 Calculated Osmolality 288 mOsm/kg (285-295) 09/02/22 13:37 Calcium 9.0 mg/dL (8.5-10.5) 09/02/22 13:37 Total Bilirubin 0.4 mg/dL (0.15-1.2) 09/02/22 13:37 AST 12 U/L (0-32) 09/02/22 13:37 ALT 8 U/L (0-33) 09/02/22 13:37 Alkaline Phosphatase 79 U/L (35-105) 09/02/22 13:37 Total Protein 6.0 g/dL (6.6-8.7) L 09/02/22 13:37 Albumin 3.4 g/dL (3.5-5.2) L 09/02/22 13:37 Globulin 2.6 g/dL (1.3-4.6) 09/02/22 13:37 Urine Color Dark yellow (Yellow) 09/02/22 14:05 Urine Appearance Hazy (CLEAR) A 09/02/22 14:05 Urine pH 5 (5-7) 09/02/22 14:05 Ur Specific Mckenzie 1.020 (1.005-1.030) 09/02/22 14:05 Urine Protein Neg (Negative) 09/02/22 14:05 Urine Glucose (UA) Norm (Normal) 09/02/22 14:05 Urine Ketones Negative (Negative) 09/02/22 14:05 Urine Blood Neg (Negative) 09/02/22 14:05 Urine Nitrate Negative (Negative) 09/02/22 14:05 Urine Bilirubin Neg (Negative) 09/02/22 14:05 Urine Urobilinogen 1 mg/dL (Negative) H 09/02/22 14:05 Ur Leukocyte Esterase Negative (Negative) 09/02/22 14:05 Urine RBC None /hpf (0-2) 09/02/22 14:05 Urine WBC Rare /hpf (0-5) 09/02/22 14:05 Ur Squamous Epith Cells 5-10 /hpf (0-5) H 09/02/22 14:05 Amorphous Sediment 1+ /hpf 09/02/22 14:05 Urine Bacteria Trace /hpf (NONE) 09/02/22 14:05 Urine Mucus 1+ /hpf 09/02/22 14:05 Influenza Type A Ag negative (Negative) 09/02/22 14:00 Influenza Type B Ag negative (Negative) 09/02/22 14:00 Discharge Plan Discharge Patient Disposition: Home Clinical Impression: Orthostatic hypotension, Anemia, Hypotension, S/P bilateral mastectomy, Cellulitis Condition: Stable Prescriptions: New cephalexin 750 mg capsule 750 mg PO BID 7 Days Qty: 14 0RF Discontinued clonidine HCl 0.1 mg tablet 0.1 mg PO DAILY PRN (Reason: high bp) Qty: 90 3RF potassium chloride 10 mEq capsule, extended release 10 meq PO .DAILY MON,WED,FRI furosemide 20 mg tablet 20 mg PO .DAILY MON,WED,FRI No Action carvedilol 25 mg tablet 25 mg PO BID Qty: 180 3RF pantoprazole 40 mg tablet,delayed release (DR/EC) 40 mg PO DAILY@08 Qty: 90 0RF lorazepam [Ativan] 0.5 mg tablet 0.5 mg PO DAILY PRN (Reason: anxiety) Qty: 30 1RF fluconazole 150 mg tablet 150 mg PO .ONCE hydroxyzine pamoate 50 mg capsule 50 mg PO BID PRN (Reason: Anxiety) acyclovir 800 mg tablet 800 mg PO TID PRN (Reason: BREAKOUTS) Migraine Pain Reliever 250-250-65 mg Tablet 3 tab PO Q6H PRN (Reason: Migraine Headache) Zoloft 100 mg tablet 150 mg PO QAM trazodone 100 mg tablet 200 mg PO BEDTIME pregabalin 100 mg capsule 100 mg PO Q12H Aimovig Autoinjector 140 mg/mL auto-injector 140 mg SUBCUT Q30D Rx Instructions: Inject subcutaneously once a month for Migraines. Discharge Orders: Discharge ED (Routine); Ordered 09/02/22 Ordered By: Moy Galvan Referrals: Roseanne Marin PA [Primary Care Provider] - Discharge Diet: Usual diet Patient Instructions: Opioid Safety, Pain Management Coding Level of Care Code ED Commercial [employer] Specialist for 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
--- NOTE | 2022-09-02 13:37 | CTR_ITS ---
PROCEDURE INFORMATION: Exam: CT Head Without Contrast Exam date and time: 09/02/2022 2:20 PM Age: 57 years old Clinical indication: Altered mental status/memory loss and syncope and collapse; Additional info: AMS, loc TECHNIQUE: Imaging protocol: Computed tomography of the head without contrast. Radiation optimization: All CT scans at this facility use at least one of these dose optimization techniques: automated exposure control; mA and/or kV adjustment per patient size (includes targeted exams where dose is matched to clinical indication); or iterative reconstruction. COMPARISON: MR head wo con* [id number] 07/01/2022 11:06 AM RADIATION DOSE METRICS: Total DLP (mGy-cm): 1004.38 FINDINGS: Brain: Normal. No hemorrhage. Unremarkable white matter. No mass effect. Cerebral ventricles: No ventriculomegaly. Paranasal sinuses: Visualized sinuses are unremarkable. No fluid levels. Mastoid air cells: Visualized mastoid air cells are well aerated. Bones/joints: Unremarkable. No acute fracture. Soft tissues: Unremarkable. CT/CT head wo con* [id number] IMPRESSION: No acute intracranial abnormality.
--- NOTE | 2022-09-02 13:38 | XRR_ITS ---
PROCEDURE INFORMATION: Exam: XR Chest Exam date and time: 09/02/2022 2:42 PM Age: 57 years old Clinical indication: Other: General weakness after double mastectomy 08/10/22; Prior surgery; Surgery date: <1 month; Additional info: Dyspnea/cough TECHNIQUE: Imaging protocol: Radiologic exam of the chest. Views: 1 view. COMPARISON: CR XR chest 1V portable [id number] 01/14/2021 11:53 PM FINDINGS: Lungs: Unremarkable. No consolidation. Pleural spaces: Unremarkable. No pleural effusion. No pneumothorax. Heart/Mediastinum: Unremarkable. No cardiomegaly. Bones/joints: Unremarkable. Soft tissues: Bilateral mastectomy is seen. XR/XR chest 1V portable [id number] IMPRESSION: 1. No acute findings. 2. Bilateral mastectomy
[2022-09-02] MEDS: sodium chloride 0.9% 1,000 ML 999 ML IV (13:50)
[2022-09-02 13:53] LABS: Basophils % 0.3 %; Eosinophils # 0.1 10^3/uL (0.0-0.8); Eosinophils % 1.7 %; Hematocrit 34.6 % (37.0-47.0); Hemoglobin 10.8 g/dL (11.5-15.3); Lymphocytes # 1.2 10^3/uL (0.8-4.8); Lymphocytes % 16.2 %; Mean Corpuscular HGB Conc 31.2 g/dL (30.0-36.0); Mean Corpuscular Volume 83.2 fl (81-99); Mean Platelet Volume 11.9 fL (7.4-10.4); Monocytes # 0.6 10^3/uL (0.2-0.9); Monocytes % 8.3 %; Neutrophils # 5.56 10^3/uL (1.8-7.7); Neutrophils % 73.2 %; Nucleated Red Blood Cells % 0 %; Platelet Count 165 10^3/cmm (130-400); Red Blood Count 4.16 10^6/uL (4.1-5.3); Red Cell Distribution Width 14.7 % (12.1-15.1); White Blood Count 7.6 10^3/uL (4.0-10.0)
--- NOTE | 2022-09-02 13:55 | ECG_ITS ---
[facility] Test Date: 2022-09-02 Pat Name: Anne Payne Department: Room: Gender: Female It Teacher: : 1965 Requested By: Moy Van Order Number: [id number] Reza MD: Simon Robison M.D. Measurements Intervals [place] Rate: 95 P: 35 WY: 136 QRS: 18 QRSD: 80 T: 36 QT: 331 QTc: 417 Interpretive Statements SINUS RHYTHM Compared to ECG 04/09/2022 16:23:07 No significant changes Electronically Signed On 09-03-2022 11:10:30 GRANTS DIRECTOR by Simon Robison M.D. [email or web address] [email or web address] memorial [email or web address] [email or web address] st[facility] [email or web address] hospitalMir [email or web address]/[id number]
[2022-09-02 14:10] LABS: Alanine Aminotransferase 8 U/L (0-33); Albumin Level 3.4 g/dL (3.5-5.2); Alkaline Phosphatase 79 U/L (35-105); Anion Gap 14.5 (5-19); Aspartate Amino Transferase 12 U/L (0-32); Blood Urea Nitrogen 15 mg/dL (6-20); Carbon Dioxide 26 mmol/L (22-29); Chloride 102 mmol/L (98-107); Globulin 2.6 g/dL (1.3-4.6); Glomerular Filtration Rate 51.4 mL/min (90-130); Glucose 121 mg/dL (65-115); Osmolality Calculated 288 mOsm/kg (285-295); Potassium 4.5 mmol/L (3.5-5.1); Sodium 138 mmol/L (136-145); Total Bilirubin 0.4 mg/dL (0.15-1.2)
[2022-09-02 14:49] VITALS: BP 135/56
[2022-09-02 14:52] LABS: Influenza A by IFA negative (Negative); Influenza B by IFA negative (Negative)
[2022-09-02 15:13] LABS: Add Urine Microscopic? YES; Bilirubin Urine Neg (Negative); Blood Urine Neg (Negative); Glucose Urine UA Norm (Normal); Ketones Urine Negative (Negative); Leukocyte Esterase Urine Negative (Negative); Nitrate Urine Negative (Negative); Protein Urine Neg (Negative); Urine Appearance Hazy (CLEAR); Urine Color Dark Yellow (Yellow); Urobilinogen Urine 1 mg/dL (Negative); pH Urine 5 (5-7)
[2022-09-02 15:39] LABS: WBC Urine RARE /hpf (0-5)
[2022-09-02 15:40] LABS: Add Urine Culture? No; Amorphous Sediment Urine 1+ /hpf; Bacteria Urine TRACE /hpf; Mucus Urine 1+ /hpf
== END 2022-09-02 16:16 | disposition home or self-care (01) ==
PROVIDERS: Emergency Provider Family Medicine; PCP Physician Assistant
DX: I95.1 Orthostatic hypotension (principal); D64.9 Anemia, unspecified; L03.313 Cellulitis of chest wall; Z90.13 Acquired absence of bilateral breasts and nipples; I10 Essential (primary) hypertension
CPT/HCPCS: 70450; 71045; 80053; 81001; 85025; 87040; 87804; 93005; 96360; 99285; J7030

== ENCOUNTER → 2022-10-12 11:08 | Outpatient (BNVA) | payer MEDICARE, MEDICAID, SELFPAY | PROVIDERS: PCP Physician Assistant; Visit Provider Internal Medicine Cardiovascular Disease | DX: I10 Essential (primary) hypertension (principal); Z86.74 Personal history of sudden cardiac arrest; R00.0 Tachycardia, unspecified; F33.3 Major depressive disorder, recurrent, severe with psychotic symptoms; R73.03 Prediabetes | CPT/HCPCS: 99214 ==

== ENCOUNTER → 2022-10-26 08:53 | Outpatient (BNVA) | payer MEDICARE, MEDICAID, SELFPAY | PROVIDERS: PCP Physician Assistant; Visit Provider Specialist | DX: G40.909 Epilepsy, unspecified, not intractable, without status epilepticus (principal); G43.711 Chronic migraine without aura, intractable, with status migrainosus; R55 Syncope and collapse; Z79.899 Other long term (current) drug therapy; Z90.13 Acquired absence of bilateral breasts and nipples | CPT/HCPCS: 99214 ==

== ENCOUNTER 2023-01-17 17:05 | Emergency (ER) | payer MEDICARE, MEDICAID, SELFPAY ==
[2023-01-17 17:13] VITALS: BP 171/82; PULSE 74; RESP 16; TEMP 36.8; O2SAT 98
--- NOTE | 2023-01-17 17:20 | W.ED.HA ---
HPI - Headache General: Chief Complaint: Headache Stated Complaint: headache Time Seen by Provider: 01/17/23 17:18 History of Present Illness: 57-year-old female comes in today for complaints of migraine headache. Patient has a long history of migraine headaches and has taken her Excedrin Migraine and Imitrex at home without any relief. Patient appears nontoxic. Patient appears in mild to moderate pain. Patient denies any differences in than her usual migraine. Associated symptoms: Reports nausea and vomiting; Deny chest pain, fever(s) or rash Review of Systems General: Reports: 10 or more systems reviewed and unremarkable except in HPI and below Const: Denies: fever(s) Eyes: Denies: change in vision ENMT: Denies: throat pain Card: Denies: chest pain Resp: Denies: dyspnea GI: Reports: nausea and vomiting; Denies: diarrhea or constipation : Denies: difficulty voiding Musc: Denies: neck pain Skin/Breast: Denies: rash Neuro: Reports: headache(s) PFS ED PFSH: Medical History Borderline personality disorder Depression with anxiety Fear of insects (Unknown) Specifically tics Herpes genitalia History of malignant melanoma Hot flashes HTN (hypertension) with goal to be determined Inappropriate sinus tachycardia Irritable bowel disease Long-term current use of opiate analgesic Lumbar radiculitis Major depressive disorder, recurrent, severe with psychotic symptoms [facility] [place] managing Malignant hypertension No pertinent past medical history neghx: dm,thyroid,dvt/pe PCP: Roseanne Marin Pain management contract signed Psychiatric care Surgical History Bowel obstruction (~01/15/21) surgical repair by DR. Lambert H/O tubal ligation (~2008) History of augmentation of both breasts (~2012) SILICONE IMPLANTS History of colonoscopy Hx of abdominoplasty (~2009) Hx of section (~2008) x 1 Hx of decompressive lumbar laminectomy ---2014 L5-S1 [facility] IN [place], [place]. ---10/20/2020 Revision; Dr Dalia ALBERT Hx of hernia repair (~2012) ventral (patient thinks mesh was used) Hx of hysterectomy (~2008) CHRISTINA-- ovaries spared. Intra-abdominal adhesions (~10/2020) adhesiolysis / incidental appendectomy-- at same time as bowel obstruction Family History Mother Breast cancer dx age unknown Hypertension Grandmother Breast cancer Maternal--dx age 60's Hypertension Maternal and Paternal Sister No problems noted. Daughter Uterine cancer dx age 28 Father Diabetes Hypertension Stroke Grandfather Hypertension maternal and Paternal Denies family history of Colon cancer Ovarian cancer Social History Smoking and tobacco status: never smoked Alcohol intake: current Alcohol intake frequency: holidays/special occasions only Alcohol type: wine Physical Exam Const: COMMON NORMALS: alert HENMT: COMMON NORMALS: atraumatic HEAD & SCALP: atraumatic Neck/C-Spine: COMMON NORMALS: full ROM Resp: COMMON NORMALS: normal respiratory effort Cardio: COMMON NORMALS: regular rate RATE: regular rate Back/Pelvis: COMMON NORMALS: thoracic and lumbar spine normal to inspection Extremity: COMMON NORMALS: no pedal edema Neuro: SENSORIUM/ORIENTATION: Yes alert Skin: COMMON NORMALS: turgor normal GENERAL SKIN EXAM: turgor normal Course Vital Signs: Vital signs: Vital Signs Temperature 98.2 F 01/17/23 17:13 Pulse Rate 74 01/17/23 17:13 Respiratory Rate 16 01/17/23 17:13 Blood Pressure 171/82 01/17/23 17:13 Pulse Oximetry 98 01/17/23 17:13 Oxygen Delivery Me thod 01/17/23 17:13 MDM - Headache Medical Decision Making 57-year-old female comes in today with complaints of migraine headache. Patient had used her sumatriptan and Excedrin Migraine at home with no relief. Patient reports significant nausea with her headache. Patient appears nontoxic. Patient moves all extremities well. No swelling is noted in the extremities. Vital signs are normal except for some elevation of blood pressure. Differential diagnosis includes but not limited to migraine headache, tension headache, hypertension. Patient was treated for migraine with Reglan 10 mg, ketorolac 15 mg, and 10 mg dexamethasone. Patient had full resolution of headache and was released to home. Discharge Plan Discharge Patient Disposition: Home Clinical Impression: Migraine Condition: Stable Prescriptions: No Action carvedilol 25 mg tablet 25 mg PO BID Qty: 180 3RF ferrous sulfate 325 mg (65 mg iron) tablet 325 mg PO DAILY sertraline [Zoloft] 100 mg tablet 150 mg PO .morning Qty: 45 4RF Rx Instructions: Take one and half tablet every morning trazodone 100 mg tablet 200 mg PO BEDTIME PRN (Reason: sleep) Qty: 60 4RF Rx Instructions: Take one to two tablets at bedtime as needed for sleep quetiapine [Seroquel] 25 mg tablet 25 mg PO DAILY PRN (Reason: psychosis) Qty: 30 1RF Rx Instructions: May take one tablet daily as needed for psychosis sumatriptan succinate [Imitrex] 100 mg tablet See Rx Instructions PO .COMPLEX Qty: 90 3RF Rx Instructions: take 1 tab at onset of headache; if no relief, may repeat 1 tab after at least 2 hrs; max = 2 tabs/24 hrs PO pantoprazole 40 mg tablet,delayed release (DR/EC) 40 mg PO DAILY@08 Qty: 90 0RF lorazepam [Ativan] 0.5 mg tablet 0.5 mg PO DAILY PRN (Reason: anxiety) Qty: 30 1RF Aimovig Autoinjector 140 mg/mL auto-injector See Rx Instructions .ROUTE .COMPLEX Qty: 1 0RF Dose Instruction: INJECT ONE PEN SUBCUTANEOUSLY ONCE PER MONTH FOR MIGRAINES Rx Instructions: INJECT ONE PEN SUBCUTANEOUSLY ONCE PER MONTH FOR MIGRAINES acyclovir 800 mg tablet 800 mg PO TID PRN (Reason: BREAKOUTS) Migraine Pain Reliever 250-250-65 mg Tablet 3 tab PO Q6H PRN (Reason: Migraine Headache) pregabalin 100 mg capsule 100 mg PO Q12H Discharge Orders: Discharge ED (Routine); Ordered 01/17/23 Ordered By: Daniel Soto Referrals: Roseanne Marin PA [Primary Care Provider] - Discharge Diet: Usual diet Discharge Activity: Increase activity as tolerated Patient Instructions: Migraine Headache (ED) Activity Restrictions/Additional Instructions: Home and rest. Drink plenty of water and fluids. Continue with routine care. Follow-up with primary care for further instructions. Return to ED for new concerns. Coding Level of Care Code ED Tool And Gauge Inspector for 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
[2023-01-17] MEDS: sodium chloride 0.9% 500 ML 999 ML IV (18:18)
[2023-01-17] MEDS: metoclopramide 5 mg/mL SDV 2 mL 10 MG IVP (18:19)
[2023-01-17] MEDS: ketorolac 30 mg/mL INJ 15 MG IVP (18:19)
[2023-01-17] MEDS: dexamethasone 10 mg/mL INJ IVP (18:19)
[2023-01-17 18:43] VITALS: PULSE 74; RESP 18; O2SAT 98
== END 2023-01-17 18:44 | disposition home or self-care (01) ==
PROVIDERS: Emergency Provider Nurse Practitioner Family; PCP Physician Assistant
DX: G43.909 Migraine, unspecified, not intractable, without status migrainosus (principal); I10 Essential (primary) hypertension
CPT/HCPCS: 96361; 96374; 96375; 99284; J1100; J1885; J2765; J7040

== ENCOUNTER → 2023-03-17 09:33 | Outpatient (BNVA) | payer MEDICARE, MEDICAID, SELFPAY | PROVIDERS: PCP Physician Assistant; Visit Provider Nurse Practitioner Family | DX: L57.0 Actinic keratosis (principal); L57.8 Other skin changes due to chronic exposure to nonionizing radiation; Z87.2 Personal history of diseases of the skin and subcutaneous tissue; L82.1 Other seborrheic keratosis; L85.3 Xerosis cutis; L81.4 Other melanin hyperpigmentation; D22.5 Melanocytic nevi of trunk; Z71.89 Other specified counseling; Z80.8 Family history of malignant neoplasm of other organs or systems | CPT/HCPCS: 17000; 17003; 99213 ==

== ENCOUNTER 2023-03-21 09:18 | Outpatient (CLI) | payer MEDICARE, MEDICAID, SELFPAY ==
[2023-03-21 12:53] LABS: Alanine Aminotransferase 14 U/L (0-33); Alkaline Phosphatase 80 U/L (35-105); Aspartate Amino Transferase 15 U/L (0-32); Blood Urea Nitrogen 18 mg/dL (6-20); Calcium 9.4 mg/dL (8.5-10.5); Carbon Dioxide 18 mmol/L (22-29); Chloride 105 mmol/L (98-107); Chol HDL Ratio 5.91 mg/dL (0.0-4.40); Cholesterol 207 mg/dL (0-200); Globulin 2.7 g/dL (1.3-4.6); Glomerular Filtration Rate 74.2 mL/min (90-130); Glucose 79 mg/dL (65-115); HDL Cholesterol 35 mg/dL (60-100); LDL Cholesterol Calculated 126 mg/dL (50-129); Osmolality Calculated 283 mOsm/kg (285-295); Sodium 136 mmol/L (136-145); Total Bilirubin 0.2 mg/dL (0.15-1.2); Total Protein 6.7 g/dL (6.6-8.7); Triglycerides 229 mg/dL (0-150)
[2023-03-21 12:58] LABS: Anion Gap 17.7 (5-19); Potassium 4.7 mmol/L (3.5-5.1)
[2023-03-21 13:02] LABS: Estmated Average Glucose 117; Hemoglobin A1C 5.7 % (4.0-6.0)
== END 2023-03-21 09:19 | disposition home or self-care (01) ==
PROVIDERS: PCP Physician Assistant; Visit Provider Nurse Practitioner Psychiatric/Mental Health
DX: Z79.899 Other long term (current) drug therapy (principal)
CPT/HCPCS: 36415; 80053; 80061; 83036

== ENCOUNTER 2023-03-22 08:53 | Outpatient (CLI) | payer MEDICARE, MEDICAID, SELFPAY ==
--- NOTE | 2023-03-22 09:09 | MR_ITS ---
WS: [id number] MRI HEAD WITH CONTRAST WITH ATTENTION TO THE INTERNAL AUDITORY CANALS TECHNIQUE: Sagittal T1, T2 axial, T2 axial flair, axial susceptibility weighted imaging, axial diffus ion weighted images, and coronal T2 images were obtained. Pre and post T1 axial and post T1 coronal i mages. ADC and FSPGR images. Post gadolinium images with attention to the internal auditory canals. A xial fiesta imaging. CLINICAL INFORMATION: VERTIGO COMPARISON: MRI [address] August 2022 FINDINGS: No evidence of restricted diffusion to suggest acute ischemia. Minimal supratentorial white matter ch anges stable compared to previous. This is nonspecific in a patient this age but can be seen with manda jeffery headaches and minimal small vessel changes. No significant parenchymal volume loss. Normal posterior fossa. Normal vascular flow voids at the skull base. Normal vascular flow voids at t he skull base. No extra axial fluid collections. No evidence of mass or mass effect. Paranasal sinuse s and mastoid air cells well aerated. Normal parapharyngeal fat. No hemosiderin on the susceptibly weighted images. Temporal lobes and hippocampal formations are norm al in appearance.Proximal 7th and 8th cranial nerves are normal in appearance. Normal trigeminal nerv e root entry zones. No evidence of enhancing IAC or CP angle mass. No abnormal intracranial enhancement. Normal visualize d dural venous sinuses. Normal optic chiasm and pituitary infundibulum. Normal cavernous sinuses and Meckel's cave. MR/MR iac's wo/w con* [id number] IMPRESSION: 1. No evidence of restricted diffusion to suggest acute ischemia. 2. Minimal supratentorial white matter changes stable compared to previous. Th is can be seen with minimal small vessel changes and migraine headaches. 3. No significant parenchymal volume loss. 4. Proximal 7th and 8th cranial nerves are normal in appearance. Normal trigem inal nerve root entry zones. 5. No evidence of enhancing IAC or CP angle mass. 6. No hemosiderin on susceptibly weighted views.
[2023-03-22] MEDS: gadobenate dimeglumine 20 mL vial IV (10:25)
== END 2023-03-22 08:54 | disposition home or self-care (01) ==
LOC: RAD 08:53
PROVIDERS: PCP Physician Assistant; Visit Provider Physician Assistant
DX: H81.4 Vertigo of central origin (principal)
CPT/HCPCS: 70553; A9577

== ENCOUNTER 2023-03-29 13:40 | Oncology outpatient (recurring) (ONCR) | payer MEDICARE, MEDICAID, SELFPAY | END 2023-04-08 23:59 | disposition home or self-care (01) | PROVIDERS: PCP Physician Assistant; Visit Provider Internal Medicine Medical Oncology | DX: D05.12 Intraductal carcinoma in situ of left breast (principal); Z17.1 Estrogen receptor negative status [ER-]; Z90.13 Acquired absence of bilateral breasts and nipples | CPT/HCPCS: 99204; 99214 ==

== ENCOUNTER 2023-04-16 08:05 | Inpatient (IN) | payer MEDICARE, MEDICAID, SELFPAY ==
[2023-04-16] VITALS (7 sets, daily range): BP systolic 116–135; BP diastolic 72–89; PULSE 67–89; RESP 16–18; TEMP 36.5–36.9; O2SAT 94–100; BMI 31.8
--- NOTE | 2023-04-16 08:42 | ED_ITS ---
HPI - Abdominal Pain General: Chief Complaint: Abdominal Pain Stated Complaint: abd pain, N/V Time Seen by Provider: 04/16/23 08:17 Source: patient Mode of arrival: ambulatory History of Present Illness: 57-year-old female presents to the emergency room with complaint of abdominal pain bloating. She has not had a bowel movement for the last 3 days. She has been vomiting unable to eat or drink. She has a previous history of adhesion which caused a bowel obstruction she had a laparotomy which the adhesion was released and she did not require any kind of bowel resection. She states she feels she has similar bloating and discomfort. MD elicited complaint: abdominal pain Onset (ago): day(s) Pain Consistency: constant Location: Diffuse Severity: moderate Quality: cramping Radiation: none Exacerbating factors: eating Relieving factors: nothing Associated Symptoms: Reports bloating, change in bowel habits, GI cramping, nausea and poor appetite; Denies anorexia, belching, change in stool character, chills, coffee ground emesis, constipation, diarrhea, dyspepsia, dysuria, excessive flatus, fever(s), heartburn, hematochezia, hematuria, hematemesis, fecal incontinence, loose stools, melena, syncope and vomiting Review of Systems Const: Denies: fever(s) or chills Card: Denies: chest pain, palpitations or syncope Resp: Denies: dyspnea, productive cough or non-productive cough GI: Reports: abdominal pain, nausea, bloating, GI cramping and change in bowel habits; Denies: vomiting, hematemesis, coffee ground emesis, heartburn, diarrhea, constipation, belching, excessive flatus, fecal incontinence, change in stool character, hematochezia or melena : Denies: dysuria, urinary frequency, urinary urgency or hematuria Skin/Breast: Denies: rash or pruritus PFSH ED PFSH: Medical History Borderline personality disorder Breast cancer Chronic migraine without aura, intractable, with status migrainosus Depression with anxiety Fear of insects (Unknown) Specifically tics Herpes genitalia History of cardiac arrest History of malignant melanoma Hot flashes HTN (hypertension) with goal to be determined Inappropriate sinus tachycardia Irritable bowel disease Long-term current use of opiate analgesic Lumbar radiculitis Major depressive disorder, recurrent, severe with psychotic symptoms [facility] managing Malignant hypertension No pertinent past medical history neghx: dm,thyroid,dvt/pe PCP: Roseanne Marin Pain management contract signed Psychiatric care Surgical History Bowel obstruction (~01/15/21) surgical repair by DR. Lambert H/O tubal ligation (~2008) History of augmentation of both breasts (~2012) SILICONE IMPLANTS History of colonoscopy Hx of abdominoplasty (~2009) Hx of bilateral mastectomy Hx of section (~2008) x 1 Hx of decompressive lumbar laminectomy ---2014 L5-S1 [facility] IN [place], [place]. ---10/20/2020 Revision; Dr Dalia ALBERT Hx of hernia repair (~2012) ventral (patient thinks mesh was used) Hx of hysterectomy (~2008) CHRISTINA-- ovaries spared. Intra-abdominal adhesions (~10/2020) adhesiolysis / incidental appendectomy-- at same time as bowel obstruction Family History Mother Breast cancer dx age unknown Hypertension Grandmother Breast cancer Maternal--dx age 60's Hypertension Maternal and Paternal Sister No problems noted. Daughter Uterine cancer dx age 28 Father Diabetes Hypertension Stroke Grandfather Hypertension maternal and Paternal Denies family history of Colon cancer Ovarian cancer Social History Smoking and tobacco status: never smoked Alcohol intake: current Alcohol intake frequency: holidays/special occasions only Alcohol type: wine Substance/Drug Use: never Do you think of yourself as: Straight/Heterosexual Physical Exam Const: GENERAL APPEARANCE: cooperative and comfortable ORIENTATION/CONSCIOUSNESS: Yes awake, Yes oriented to person, Yes oriented to place and Yes oriented to time HENMT: COMMON NORMALS: normocephalic, atraumatic and hearing grossly normal bilaterally HEAD & SCALP: normocephalic and atraumatic Resp: COMMON NORMALS: normal respiratory effort, No retractions, No use of accessory muscles and clear to auscultation bilaterally AUSCULTATION: clear to auscultation bilaterally Cardio: COMMON NORMALS: regular rate, regular rhythm and No murmurs present (Cardio) RATE: regular rate RHYTHM: regular rhythm GI: COMMON NORMALS: No hepatosplenomegaly present AUSCULTATION: Yes Hypoactive bowel sounds present PALPATION: Yes Tenderness to palpation present (GI), No Guarding due to palpation present (GI) and Yes No hepatosplenomegaly present PERCUSSION: tympanic to percussion Extremity: COMMON NORMALS: normal to inspection, capillary refill normal, no clubbing, cyanosis or edema, no calf tenderness and no pedal edema Neuro: SENSORIUM/ORIENTATION: Yes oriented to person, Yes oriented to place a nd Yes oriented to time Skin: COMMON NORMALS: no rashes or lesions noted GENERAL SKIN EXAM: no rashes or lesions noted Course Vital Signs: Vital signs: Vital Signs Temperature 97.7 F 04/16/23 12:43 Pulse Rate 89 04/16/23 12:43 Respiratory Rate 16 04/16/23 12:43 Blood Pressure 125/75 04/16/23 12:43 Pulse Oximetry 97 04/16/23 12:43 Oxygen Delivery Me thod Room Air 04/16/23 08:33 MDM - Abdominal Pain Medical Decision Making Bowel obstruction with possible tethering points Place NG keep patient n.p.o. consult surgery admit discussed with hospitalist and general surgery. Medical Records I reviewed the patient's medical records. Lab Data I reviewed the patient's lab results. 04/16/23 08:49 04/16/23 08:33 Labs/Radiology: Radiology Impressions Abdomen/Pelvis CT 04/16/23 08:43 IMPRESSION: 1. Multiple dilated small bowel loops without definite transition point. Focal narrowing with tethered appearance of a small bowel loop in the central lower abdomen with dilated bowel loops proximal and distal. Suspect adhesive disease causing at least partial small bowel obstruction. 2. Additional chronic and incidental findings, to include punctate nonobstructive left nephrolith and atherosclerosis. THIS REPORT CONTAINS FINDINGS THAT MAY BE CRITICAL TO PATIENT CARE. The findings were verbally communicated via telephone conference with BLADE PAGAN at 9:38 AM CDT on 04/16/2023. The findings were acknowledged and understood. Laboratory Results WBC 4.0 10^3/uL (4.0-10.0) 04/16/23 08:49 Corrected WBC Cancelled 04/16/23 08:33 RBC 4.65 10^6/uL (4.1-5.3) 04/16/23 08:49 Hgb 12.2 g/dL (11.5-15.3) 04/16/23 08:49 Hct 38.4 % (37.0-47.0) 04/16/23 08:49 MCV 82.6 fl (81-99) 04/16/23 08:49 MCH 26.2 pg (28.0-34.0) L 04/16/23 08:49 MCHC 31.8 g/dL (30.0-36.0) 04/16/23 08:49 RDW 14.9 % (12.1-15.1) 04/16/23 08:49 Plt Count 172 10^3/cmm (130-400) 04/16/23 08:49 MPV 11.2 fL (7.4-10.4) H 04/16/23 08:49 Gran % Cancelled 04/16/23 08:33 Neut % (Auto) 54.9 % 04/16/23 08:49 Lymph % (Auto) 36.5 % 04/16/23 08:49 Page % (Auto) 6.5 % 04/16/23 08:49 Eos % (Auto) 1.7 % 04/16/23 08:49 Baso % (Auto) 0.2 % 04/16/23 08:49 Neut # (Auto) 2.21 10^3/uL (1.8-7.7) 04/16/23 08:49 Lymph # (Auto) 1.5 10^3/uL (0.8-4.8) 04/16/23 08:49 Page # (Auto) 0.3 10^3/uL (0.2-0.9) 04/16/23 08:49 Eos # (Auto) 0.1 10^3/uL (0.0-0.8) 04/16/23 08:49 Baso # (Auto) 0.0 10^3/uL (0.0-0.1) 04/16/23 08:49 Absolute Gran (auto) Cancelled 04/16/23 08:33 Nucleated RBC % (auto) 0 % 04/16/23 08:49 Nucleated RBCs # 0.0 /100WBC 04/16/23 08:49 Sodium 137 mmol/L (136-145) 04/16/23 08:33 Potassium 4.6 mmol/L (3.5-5.1) 04/16/23 08:33 Chloride 103 mmol/L (98-107) 04/16/23 08:33 Carbon Dioxide 22 mmol/L (22-29) 04/16/23 08:33 Anion Gap 16.6 (5-19) 04/16/23 08:33 BUN 16 mg/dL (6-20) 04/16/23 08:33 Creatinine 1.2 mg/dL (0.5-0.9) H 04/16/23 08:33 GFR Calculation 46.5 mL/min (90-130) L 04/16/23 08:33 Glucose 99 mg/dL (65-115) 04/16/23 08:33 Calculated Osmolality 285 mOsm/kg (285-295) 04/16/23 08:33 Lactic Acid 1.0 mmol/L (0.5-2.2) 04/16/23 08:48 Calcium 9.1 mg/dL (8.5-10.5) 04/16/23 08:33 Total Bilirubin 0.5 mg/dL (0.15-1.2) 04/16/23 08:33 AST 18 U/L (0-32) 04/16/23 08:33 ALT 18 U/L (0-33) 04/16/23 08:33 Alkaline Phosphatase 74 U/L (35-105) 04/16/23 08:33 Total Protein 7.0 g/dL (6.6-8.7) 04/16/23 08:33 Albumin 4.2 g/dL (3.5-5.2) 04/16/23 08:33 Globulin 2.8 g/dL (1.3-4.6) 04/16/23 08:33 Lipase 112 U/L (13-60) H 04/16/23 08:33 Urine Color Yellow (Yellow) 04/16/23 08:58 Urine Appearance Clear (CLEAR) 04/16/23 08:58 Urine pH 5 (5-7) 04/16/23 08:58 Ur Specific [place] 1.015 (1.005-1.030) 04/16/23 08:58 Urine Protein Neg (Negative) 04/16/23 08:58 Urine Glucose (UA) Norm (Normal) 04/16/23 08:58 Urine Ketones Negative (Negative) 04/16/23 08:58 Urine Blood Neg (Negative) 04/16/23 08:58 Urine Nitrate Negative (Negative) 04/16/23 08:58 Urine Bilirubin Neg (Negative) 04/16/23 08:58 Urine Urobilinogen Norm mg/dL (Negative) 04/16/23 08:58 Ur Leukocyte Esterase Negative (Negative) 04/16/23 08:58 Discharge Plan Discharge Patient Disposition: Admitted As Inpatient Admit Provider: Isauro Mitchell Clinical Impression: Small bowel obstruction, Breast cancer Condition: Stable Coding Level of Care Code ED Professional Employer Consultant for 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
--- NOTE | 2023-04-16 08:43 | CTR_ITS ---
PROCEDURE INFORMATION: Exam: CT Abdomen And Pelvis Without Contrast Exam date and time: 04/16/2023 8:59 AM Age: 57 years old Clinical indication: Abdominal pain; Prior surgery; Surgery date: 6+ months; Surgery type: Previous bowel obstruction surgery, 2019. TECHNIQUE: Imaging protocol: Computed tomography of the abdomen and pelvis without contrast. Radiation optimization: All CT scans at this facility use at least one of these dose optimization techniques: automated exposure control; mA and/or kV adjustment per patient size (includes targeted exams where dose is matched to clinical indication); or iterative reconstruction. REPORTING DATA: Count of CT and Cardiac NM exams in prior 12 months: This patient has received [address] and 0 known cardiac nuclear medicine studies in the 12 months prior to the current study. COMPARISON: 1. CT abdomen pelvis w con* [id number] 08/02/2021 9:[address] abdomen pelvis w con* [id number] 03/13/2021 5:[address] abdomen pelvis wo con [id number] 01/15/2021 7:57 AM RADIATION DOSE METRICS: Total DLP (mGy-cm): 674.63 FINDINGS: Liver: Normal. No mass. Gallbladder and bile ducts: Prior cholecystectomy without biliary ductal dilatation. Pancreas: Normal. No ductal dilation. Spleen: Normal. No splenomegaly. Adrenal glands: Normal. No mass. Kidneys and ureters: Tiny left lower renal stone. No hydronephrosis. Normal right kidney. Normal ureters. Stomach and bowel: There are multiple loops of dilated small bowel measuring up to 3.5 cm in caliber with air-fluid levels. No definite transition point is visualized. There appears to be focal narrowing of a small bowel loop in the central lower abdomen with dilatation proximal and distal to this point, axial images 53 and 54 of series 3, sagittal image 32 of series 6. There is air-fluid levels within the normal caliber ascending colon with air in the normal caliber transverse colon. The descending and sigmoid colon are decompressed. Appendix: Appendix not visualized. Intraperitoneal space: Mild mesenteric edema. Small volume free pelvic fluid. No free air. Vasculature: Moderate aortic atherosclerotic calcification without aneurysmal dilatation. Lymph nodes: Unremarkable. No enlarged lymph nodes. Urinary bladder: Unremarkable as visualized. Reproductive: The uterus is surgically absent. Bones/joints: Unremarkable. No acute fracture. Soft tissues: Postsurgical removal of bilateral breast implants with [id number] taky-hxntppa-chnp-right chest fluid collections and bilateral surgical clips. Postsurgical scarring of the midline ventral abdominopelvic wall. Mild soft tissue stranding and punctate focus of air at the left gluteal subcutaneous tissues likely on the basis of recent injection. CT/CT abdomen pelvis wo con [id number] IMPRESSION: 1. Multiple dilated small bowel loops without definite transition point. Focal narrowing with tethered appearance of a small bowel loop in the central lower abdomen with dilated bowel loops proximal and distal. Suspect adhesive disease causing at least partial small bowel obstruction. 2. Additional chronic and incidental findings, to include punctate nonobstructive left nephrolith and atherosclerosis. THIS REPORT CONTAINS FINDINGS THAT MAY BE CRITICAL TO PATIENT CARE. The findings were verbally communicated via telephone conference with BLADE PAGAN at 9:38 AM CDT on 04/16/2023. The findings were acknowledged and understood.
[2023-04-16] MEDS: sodium chloride 0.9% 1,000 ML 999 ML IV (08:54)
[2023-04-16] MEDS: ondansetron 2 mg/ML SDV 2 mL 4 MG IVP (08:54)
[2023-04-16 08:58] LABS: Basophils % 0.2 %; Eosinophils # 0.1 10^3/uL (0.0-0.8); Eosinophils % 1.7 %; Hematocrit 38.4 % (37.0-47.0); Hemoglobin 12.2 g/dL (11.5-15.3); Lymphocytes # 1.5 10^3/uL (0.8-4.8); Lymphocytes % 36.5 %; Mean Corpuscular HGB Conc 31.8 g/dL (30.0-36.0); Mean Corpuscular Hemoglobin 26.2 pg (28.0-34.0); Mean Corpuscular Volume 82.6 fl (81-99); Mean Platelet Volume 11.2 fL (7.4-10.4); Monocytes # 0.3 10^3/uL (0.2-0.9); Monocytes % 6.5 %; Neutrophils # 2.21 10^3/uL (1.8-7.7); Neutrophils % 54.9 %; Nucleated Red Blood Cells % 0 %; Platelet Count 172 10^3/cmm (130-400); Red Blood Count 4.65 10^6/uL (4.1-5.3); Red Cell Distribution Width 14.9 % (12.1-15.1)
[2023-04-16 09:01] LABS: Alanine Aminotransferase 18 U/L (0-33); Albumin Level 4.2 g/dL (3.5-5.2); Alkaline Phosphatase 74 U/L (35-105); Aspartate Amino Transferase 18 U/L (0-32); Blood Urea Nitrogen 16 mg/dL (6-20); Calcium 9.1 mg/dL (8.5-10.5); Carbon Dioxide 22 mmol/L (22-29); Chloride 103 mmol/L (98-107); Globulin 2.8 g/dL (1.3-4.6); Glomerular Filtration Rate 46.5 mL/min (90-130); Glucose 99 mg/dL (65-115); Lipase 112 U/L (13-60); Osmolality Calculated 285 mOsm/kg (285-295); Sodium 137 mmol/L (136-145); Total Bilirubin 0.5 mg/dL (0.15-1.2)
[2023-04-16 09:18] LABS: Add Urine Microscopic? NO; Charge for UA Resulting for Rev
[2023-04-16 09:24] LABS: Anion Gap 16.6 (5-19); Potassium 4.6 mmol/L (3.5-5.1)
[2023-04-16 09:32] LABS: Bilirubin Urine Neg (Negative); Blood Urine Neg (Negative); Glucose Urine UA Norm (Normal); Ketones Urine Negative (Negative); Leukocyte Esterase Urine Negative (Negative); Nitrate Urine Negative (Negative); Protein Urine Neg (Negative); Specific Gravity, Urine 1.015 (1.005-1.030); Urine Appearance Clear (CLEAR); Urine Color Yellow (Yellow); Urobilinogen Urine Norm (Negative); pH Urine 5 (5-7)
[2023-04-16] MEDS: pantoprazole 40 mg SDV IVP (10:07)
[2023-04-16] MEDS: LORazepam 2 mg/mL INJ 1 mL IVP (10:31)
[2023-04-16] MEDS: cetacaine Spray 5 gm Can 1 SPRAY TOPICAL (10:31)
--- NOTE | 2023-04-16 11:12 | PC.NURSE ---
RN attempted to insert 18G NG tube as ordered by . Unable to insert into R and L nostril. Another RN attempted insertion with 14G after administration of ativan and tetracaine. Attempts unsuccessful. MD notified.
[2023-04-16] MEDS: lidocaine 2% Urojet 20 mL TOPICAL (12:02)
--- NOTE | 2023-04-16 12:42 | PC.NURSE ---
MD into room to insert NG tube. MD administered urojet into nose with RN at bedside. MD inserted NG tube into R nostril. Aspirated stomach contents brown and green upon insertion. NG secured at the nose with tape.
--- NOTE | 2023-04-16 13:18 | P.HP_ITS ---
Providers/Chief Complaint Admitting Physician: Isauro Mitchell Primary Care Provider: Roseanne Marin Chief Complaint: abd pain, N/V History of Present Illness 57-year-old lady with past history of bowel obstruction, multiple abdominal surgeries, including requiring adhesiolysis back in 2020, came into ER for evaluation due to 3 days of nausea and vomiting. Abdominal discomfort and bloating. Denies diarrhea. Unable to keep down food or drink. Review of Systems Const: Reports: change in appetite; Denies: fever(s), chills, body aches or malaise Card: Denies: chest pain, edema, pre-syncope or dyspnea on exertion Resp: Denies: dyspnea, productive cough, change in phlegm color or hemoptysis GI: Reports: abdominal pain, nausea and vomiting; Denies: diarrhea, constipation, hematochezia or melena : Denies: flank pain, urinary frequency or hematuria Musc: Denies: back pain, joint swelling or joint redness Skin/Breast: Denies: rash or new lesions Medications/Allergies Home Medications Medication Instructions Recorded Confirmed Last Taken Type pantoprazole 40 mg tablet,delayed 40 mg PO DAILY@08 #90 tabs 09/29/21 04/16/23 04/16/23 Rx release acyclovir 800 mg tablet 800 mg PO TID PRN BREAKOUTS 09/02/22 04/16/23 Unknown History pregabalin 100 mg capsule 100 mg PO Q12H 09/02/22 04/16/23 04/16/23 History sumatriptan succinate 100 mg See Rx Instructions PO .COMPLEX 10/26/22 04/16/23 Unknown Rx tablet (Imitrex) #90 tabs carvedilol 25 mg tablet 25 mg PO BID #180 tabs 02/02/23 04/16/23 04/16/23 Rx erenumab-aooe 140 mg/mL See Rx Instructions .Route 02/15/23 04/16/23 04/11/23 Rx subcutaneous auto-injector .COMPLEX #1 mL (Aimovig Autoinjector) furosemide 40 mg tablet 40 mg PO DAILY 03/16/23 04/16/23 04/16/23 History potassium chloride 10 mEq 10 meq PO DAILY 03/16/23 04/16/23 04/16/23 History capsule,extended release tamoxifen 20 mg tablet 20 mg PO DAILY #30 tabs 03/29/23 04/16/23 04/16/23 Rx quetiapine 25 mg tablet (Seroquel) 25 mg PO BEDTIME #30 tabs 04/01/23 04/16/23 04/15/23 Rx cyclobenzaprine 10 mg tablet 10 mg PO DAILY 04/16/23 04/16/23 Unknown History inulin-sorbitol 2 gram chewable 3 tab PO DAILY 04/16/23 04/16/23 04/16/23 History tablet meloxicam 15 mg tablet 15 mg PO DAILY 04/16/23 04/16/23 Unknown History sertraline 100 mg tablet (Zoloft) 200 mg PO .morning 04/16/23 04/16/23 04/16/23 History trazodone 100 mg tablet 200 mg PO BEDTIME PRN Sleep 04/16/23 04/16/23 Unknown History Allergies Allergy/AdvReac Type Severity Reaction Status Date / Time Sulfa (Sulfonamide Allergy ALGY-Hives Verified 04/16/23 08:26 Antibiotics) PFSH Acute PFSH: Medical History Borderline personality disorder Breast cancer Chronic migraine without aura, intractable, with status migrainosus Depression with anxiety Fear of insects (Unknown) Specifically tics Herpes genitalia History of cardiac arrest History of malignant melanoma Hot flashes HTN (hypertension) with goal to be determined Inappropriate sinus tachycardia Irritable bowel disease Long-term current use of opiate analgesic Lumbar radiculitis Major depressive disorder, recurrent, severe with psychotic symptoms [facility] managing Malignant hypertension No pertinent past medical history neghx: dm,thyroid,dvt/pe PCP: Roseanne Marin Pain management contract signed Psychiatric care Surgical History Bowel obstruction (~01/15/21) surgical repair by DR. Lambert H/O tubal ligation (~2008) History of augmentation of both breasts (~2012) SILICONE IMPLANTS History of colonoscopy Hx of abdominoplasty (~2009) Hx of bilateral mastectomy Hx of section (~2008) x 1 Hx of decompressive lumbar laminectomy ---2014 L5-S1 [facility] IN [place], [place] ---10/20/2020 Revision; Dr Dalia ALBERT Hx of hernia repair (~2012) ventral (patient thinks mesh was used) Hx of hysterectomy (~2008) CHRISTINA-- ovaries spared. Intra-abdominal adhesions (~10/2020) adhesiolysis / incidental appendectomy-- at same time as bowel obstruction Family History Mother Breast cancer dx age unknown Hypertension Grandmother Breast cancer Maternal--dx age 60's Hypertension Maternal and Paternal Sister No problems noted. Daughter Uterine cancer dx age 28 Father Diabetes Hypertension Stroke Grandfather Hypertension maternal and Paternal Denies family history of Colon cancer Ovarian cancer Social History Smoking and tobacco status: never smoked Alcohol intake: current Alcohol intake frequency: holidays/special occasions only Alcohol type: wine Substance/Drug Use: never Do you think of yourself as: Straight/Heterosexual Vitals/I&O/Wt Last Vital Signs Temp 97.7 F 04/16/23 12:43 Pulse 89 04/16/23 12:43 Resp 16 04/16/23 12:43 BP 125/75 04/16/23 12:43 Pulse Ox 97 04/16/23 12:43 O2 Del Method Room Air 04/16/23 08:33 Weight last 48 hrs Weight 78.925 kg Physical Exam Const: GENERAL APPEARANCE: cooperative ORIENTATION/CONSCIOUSNESS: Yes awake HENMT: COMMON NORMALS: oropharynx normal Neck/C-Spine: COMMON NORMALS: no JVD Resp: COMMON NORMALS: normal respiratory effort and clear to auscultation bilaterally AUSCULTATION: clear to auscultation bilaterally Cardio: COMMON NORMALS: no JVD, regular rhythm, S1 normal heart sound present, S2 normal heart sound present and No murmurs present (Cardio) RHYTHM: regular rhythm HEART SOUNDS: S1 normal heart sound present and S2 normal heart sound present GI: COMMON NORMALS: Soft to palpation INSPECTION: Yes abdominal distension PALPATION: Yes Soft to palpation Extremity: COMMON NORMALS: no joint enlargement and no pedal edema Neuro: COMMON NORMALS: moves all extremities SENSORIUM/ORIENTATION: Yes alert Skin: COMMON NORMALS: no rashes or lesions noted GENERAL SKIN EXAM: no rashes or lesions noted Data 04/16/23 08:49 07/08/23 08:33 A&P Assessment and plan (1) Partial small bowel obstruction: Partial small bowel obstruction with multiple episodes of nausea vomiting, unable to tolerate oral intake. Focal narrowing with dilated appearance of small bowel loops in the central lower abdomen on CT. Bowel rest. Surgery on consult, placing NG at bedside for NGT decompression. Noted mild MARIBELL, creatinine up to 1.2. Baseline with some fluctuation but was 0.8 back in March. At risk of severe and/or life-threatening dehydration, kidney injury, electrolyte abnormality, reassess chemistry. With reported history of cardiac arrest, monitor on telemetry. IV hydration. Otherwise without sign of infection currently. With vomiting at risk of chemical pneumonitis. However, currently saturation 97% on room air, no respiratory symptoms or distress. Monitor breathing. CBC with normal leukocyte count. She is afebrile. Lipase noted 112 due to vomiting. Follow-up in the morning. Plan P.o. meds held for now. Hold diuretic. Change PPI to IV for now. ER documentation reviewed, discussed with ER physician. Attestations Medical Necessity Statement*: Admission over 2 midnights anticipated for assessment management of partial sm all bowel obstruction with focal point of narrowing with dilated appearance of small bowel in central lower abdomen. Diagnoses Partial small bowel obstruction K56.600
--- NOTE | 2023-04-16 16:01 | XRR_ITS ---
PROCEDURE INFORMATION: Exam: XR Chest Exam date and time: 04/16/2023 4:37 PM Age: 57 years old Clinical indication: Device placement; Ng tube; Additional info: Ng placement TECHNIQUE: Imaging protocol: Radiologic exam of the chest. Views: 1 view. COMPARISON: CR XR chest 1V portable [id number] 09/02/2022 2:42 PM FINDINGS: Tubes, catheters and devices: There is a orogastric tube with tip in the fundus of stomach. The side hole is just below the diaphragm and for ideal placement, the tube should be advanced about 4 cm. Lungs: Unremarkable. No consolidation. Pleural spaces: Unremarkable. No pleural effusion. No pneumothorax. Heart/Mediastinum: Unremarkable. No cardiomegaly. Bones/joints: No acute abnormality. XR/XR chest 1V portable [id number] IMPRESSION: There is a orogastric tube with tip in the fundus of stomach. The side hole is just below the diaphragm and for ideal placement, the tube should be advanced about 4 cm.
--- NOTE | 2023-04-16 16:28 | PM.CONSULT ---
Providers/Reason For Consult Consulting Physician/Specialty*: Tejas aguirre MD general surgeon Reason for Consult*: recurrent SBO Requesting Physician: see below Attending Physician: Isauro Mitchell Primary Care Provider: Roseanne Marin History of Present Illness History of Present Illness Anne Payne is a 57 year old female who has had lysis of adhesions years ago and also conservative management of recurrent SBO. She comes in with similar recuurence with N/V and generalized crampy abdominal pain. She denies any F/C/S or bloody emesis or bloody stools. CT is c/w partial SBO and no definite transition point seen. Review of Systems Narrative: Constitutional: denies rigors, singnificant weight gain, increased appetite HEENT: denies chronic cough, blurry vision, excessive tearing, eye pain, flashing lights, odynophagia, painful mastication, change in voice, change in taste, chronic sore throat, hypersalivation Heart: denies racing heart, palpitations, othropnea, PND Lungs: denies hemoptysis, pain with deep inspiration, chronic bronchitis GI: denies hematemesis, hematochezia, dysphagia, tenesmus : denies polyuria, hematuria, painful micturation Musculoskeletal: denies hemarthrosis, Muscle wasting, change in amubation Neuro: denies new onset syncope, dysesthesia, dysequilibrium, ptosis eyelid or face SKin: denies new onset hyperalgia, new rash new cyanosis Endocrine: denies new polyuria, polydipsia, polyphagia, heat intolerance, excessive energy Hem/Onc: denies new petechiae, swollen glands, new excessive epstaxis Psych: denies racing thought Medications/Allergies Home Medications Medication Instructions Recorded Confirmed Last Taken Type pantoprazole 40 mg tablet,delayed 40 mg PO DAILY@08 #90 tabs 09/29/21 04/16/23 04/16/23 Rx release acyclovir 800 mg tablet 800 mg PO TID PRN BREAKOUTS 09/02/22 04/16/23 Unknown History pregabalin 100 mg capsule 100 mg PO Q12H 09/02/22 04/16/23 04/16/23 History sumatriptan succinate 100 mg See Rx Instructions PO .COMPLEX 10/26/22 04/16/23 Unknown Rx tablet (Imitrex) #90 tabs carvedilol 25 mg tablet 25 mg PO BID #180 tabs 02/02/23 04/16/23 04/16/23 Rx erenumab-aooe 140 mg/mL See Rx Instructions .Route 02/15/23 04/16/23 04/11/23 Rx subcutaneous auto-injector .COMPLEX #1 mL (Aimovig Autoinjector) furosemide 40 mg tablet 40 mg PO DAILY 03/16/23 04/16/23 04/16/23 History potassium chloride 10 mEq 10 meq PO DAILY 03/16/23 04/16/23 04/16/23 History capsule,extended release tamoxifen 20 mg tablet 20 mg PO DAILY #30 tabs 03/29/23 04/16/23 04/16/23 Rx quetiapine 25 mg tablet (Seroquel) 25 mg PO BEDTIME #30 tabs 04/01/23 04/16/23 04/15/23 Rx cyclobenzaprine 10 mg tablet 10 mg PO DAILY 04/16/23 04/16/23 Unknown History inulin-sorbitol 2 gram chewable 3 tab PO DAILY 04/16/23 04/16/23 04/16/23 History tablet meloxicam 15 mg tablet 15 mg PO DAILY 04/16/23 04/16/23 Unknown History sertraline 100 mg tablet (Zoloft) 200 mg PO .morning 04/16/23 04/16/23 04/16/23 History trazodone 100 mg tablet 200 mg PO BEDTIME PRN Sleep 04/16/23 04/16/23 Unknown History Allergies Allergy/AdvReac Type Severity Reaction Status Date / Time Sulfa (Sulfonamide Allergy ALGY-Hives Verified 04/16/23 08:26 Antibiotics) PFSH Acute PFSH: Medical History Borderline personality disorder Breast cancer Chronic migraine without aura, intractable, with status migrainosus Depression with anxiety Fear of insects (Unknown) Specifically tics Herpes genitalia History of cardiac arrest History of malignant melanoma Hot flashes HTN (hypertension) with goal to be determined Inappropriate sinus tachycardia Irritable bowel disease Long-term current use of opiate analgesic Lumbar radiculitis Major depressive disorder, recurrent, severe with psychotic symptoms [facility] managing Malignant hypertension No pertinent past medical history neghx: dm,thyroid,dvt/pe PCP: Roseanne Marin Pain management contract signed Psychiatric care Surgical History Bowel obstruction (~01/15/21) surgical repair by DR. Lambert H/O tubal ligation (~2008) History of augmentation of both breasts (~2012) SILICONE IMPLANTS History of colonoscopy Hx of abdominoplasty (~2009) Hx of bilateral mastectomy Hx of section (~2008) x 1 Hx of decompressive lumbar laminectomy ---2014 L5-[address] [facility] IN [place], [place]. ---10/20/2020 Revision; Dr Dalia ALBERT Hx of hernia repair (~2012) ventral (patient thinks mesh was used) Hx of hysterectomy (~2008) CHRISTINA-- ovaries spared. Intra-abdominal adhesions (~10/2020) adhesiolysis / incidental appendectomy-- at same time as bowel obstruction Family History Mother Breast cancer dx age unknown Hypertension Grandmother Breast cancer Maternal--dx age 60's Hypertension Maternal and Paternal Sister No problems noted. Daughter Uterine cancer dx age 28 Father Diabetes Hypertension Stroke Grandfather Hypertension maternal and Paternal Denies family history of Colon cancer Ovarian cancer Social History Smoking and tobacco status: never smoked Alcohol intake: current Alcohol intake frequency: holidays/special occasions only Alcohol type: wine Substance/Drug Use: never Do you think of yourself as: Straight/Heterosexual Vitals/I&O/Wt Last Vital Signs Temp 97.9 F 04/16/23 15:45 Pulse 67 04/16/23 15:45 Resp 16 04/16/23 15:45 BP 122/72 04/16/23 15:45 Pulse Ox 94 04/16/23 15:45 O2 Del Method Room Air 04/16/23 08:33 Weight last 48 hrs Weight 174 lb Physical Exam Narrative: Patient is a well developed well nourished and in NAD and is afebrile with vitals stable and is answering questions appropriately with a normal affect and is alert and oriented x3 HEENT: normocephalic with normal external ears and nonicteric, oral mucosa moist and dentition normal for age, trachea midline with no large masses visualized Heart: RRR, no gallops murmurs or rubs, normal PMI with no thrills Lungs: normal excursions, no loud audible wheezing, no subcutaneous emphysema Abdomen: slightly distended, no gross hepatosplenomegaly, no masses, no rigidity or rebound, no loud borborygmi Neuro: nonfocal, RAINES, grossly normal sensation Musculoskeletal: good muscle tone, no fasciculations, normal gait Skin: pink warm and dry with no rashes or ecchymosis Vascular: good radial pulses, no ulceration, less than 2 second capillary refill in hand : deferred Data 04/16/23 08:49 04/16/23 08:33 A&P Assessment and plan (1) Small bowel obstruction: I placed NG tube by bedside through right nares because nurse was having trouble getting it in. Would keep bowels at rest with NG tube. Clean out from below and above. Consider TPN if it goes a week since last ate. Coding Level of Care Code 71692 Diagnoses Small bowel obstruction K56.609
--- NOTE | 2023-04-16 16:45 | PC.NURSE ---
Patient got up and walked to the bathroom and almost pulled her NG tube out. Replaced NG tube to where is should have been and chest x-ray ordered to confirm placement.
[2023-04-16] MEDS: D5-NS 0.45% + KCL 20 mEq 20 MEQ/1,000 ML BAG 100 MEQ IV (18:42)
[2023-04-16] MEDS: mineral oil 30 mL UDC NG-TUBE (18:42)
[2023-04-16] MEDS: simethicone 80 mg Chew PO (19:22)
--- NOTE | 2023-04-16 19:36 | PC.NURSE ---
Addendum entered by Cary Ying RN 04/16/23 20:58: No new orders received. Original Note: Patient asking for something to help her sleep. Dr. Clifton notified.
[2023-04-16] MEDS: mineral oil ENEMA 133 mL PR (21:37)
[2023-04-16] MEDS: acetaminophen 325 mg Tablet 650 MG PO (23:49)
[2023-04-17] VITALS (10 sets, daily range): BP systolic 140–152; BP diastolic 76–82; PULSE 72–86; RESP 16–18; TEMP 36.4–36.8; O2SAT 95–100; BMI 32.2
--- NOTE | 2023-04-17 00:36 | PC.NURSE ---
Enema administered per order. Patient was left side lying. Patient instructed to try to hold in the enema to allow it to work properly. During administration, large amount of enema was returned. No amount of stool returned. Patient educated again during administration to try to hold it in. Patient was not able to retain to the enema. It appeared that the majority of the enema was not held in and was returned immediately when administered.
[2023-04-17] MEDS: heparin 5,000 unit/mL INJ 1 mL 5000 UNIT SUBCUT (01:06)
[2023-04-17] MEDS: D5-NS 0.45% + KCL 20 mEq 20 MEQ/1,000 ML BAG 100 MEQ IV ×2 (01:06→18:40)
--- NOTE | 2023-04-17 01:09 | PC.NURSE ---
Addendum entered by Cary Ying RN 04/17/23 01:41: 15 mg Toradol x1 ordered. Original Note: Patient states the Tylenol did not help her headache. Patient states can I have something else for this migraine? Patient states that she takes Imitrex/sumatripatin at home. Dr. Clifton notified.
[2023-04-17] MEDS: ketorolac 30 mg/mL INJ 15 MG IVP (01:46)
--- NOTE | 2023-04-17 04:43 | PC.NURSE ---
Addendum entered by Cary Ying RN 04/17/23 04:51: Morphine 2 mg x1 ordered. Addendum entered by Cary Ying RN 04/17/23 04:50: Ordered to place patient on 2 liters nasal cannula for migraine. Original Note: Patient states the Torodol didn't help her headache. Patient is asking for her Imitrex that she takes at home. Dr. Clifton notified.
[2023-04-17] MEDS: morphine 4 mg/mL SDV 1 mL 2 MG IVP (05:10)
[2023-04-17 05:52] LABS: Basophils % 0.3 %; Eosinophils # 0.1 10^3/uL (0.0-0.8); Eosinophils % 2.5 %; Lymphocytes # 1.5 10^3/uL (0.8-4.8); Lymphocytes % 40.7 %; Mean Corpuscular HGB Conc 31.6 g/dL (30.0-36.0); Mean Corpuscular Hemoglobin 26.8 pg (28.0-34.0); Mean Corpuscular Volume 84.8 fl (81-99); Mean Platelet Volume 11.8 fL (7.4-10.4); Monocytes # 0.2 10^3/uL (0.2-0.9); Neutrophils # 1.83 10^3/uL (1.8-7.7); Neutrophils % 50.2 %; Nucleated Red Blood Cells % 0 %; Platelet Count 155 10^3/cmm (130-400); Red Blood Count 4.48 10^6/uL (4.1-5.3); Red Cell Distribution Width 15.1 % (12.1-15.1); White Blood Count 3.6 10^3/uL (4.0-10.0)
[2023-04-17 06:11] LABS: Alanine Aminotransferase 13 U/L (0-33); Albumin Level 3.4 g/dL (3.5-5.2); Alkaline Phosphatase 59 U/L (35-105); Anion Gap 11.2 (5-19); Aspartate Amino Transferase 12 U/L (0-32); Blood Urea Nitrogen 12 mg/dL (6-20); Calcium 8.4 mg/dL (8.5-10.5); Carbon Dioxide 21 mmol/L (22-29); Chloride 108 mmol/L (98-107); Globulin 2.3 g/dL (1.3-4.6); Glomerular Filtration Rate 57.4 mL/min (90-130); Glucose 111 mg/dL (65-115); Lipase 25 U/L (13-60); Osmolality Calculated 282 mOsm/kg (285-295); Potassium 4.2 mmol/L (3.5-5.1); Sodium 136 mmol/L (136-145); Total Bilirubin 0.4 mg/dL (0.15-1.2); Total Protein 5.7 g/dL (6.6-8.7)
[2023-04-17] MEDS: pantoprazole 40 mg SDV IVP (10:16)
[2023-04-17] MEDS: simethicone 80 mg Chew PO ×3 (10:33→20:22)
[2023-04-17] MEDS: morphine 4 mg/mL SDV 1 mL IVP ×3 (10:33→21:19)
--- NOTE | 2023-04-17 12:20 | XRR_ITS ---
PROCEDURE INFORMATION: Exam: XR Abdomen Exam date and time: 04/17/2023 12:42 PM Age: 57 years old Clinical indication: Abdominal pain; Generalized; Additional info: Sbo TECHNIQUE: Imaging protocol: Radiologic exam of the abdomen. Views: 2 Views. Upright and supine views. COMPARISON: CT abdomen pelvis wo con [id number] 04/16/2023 8:59 AM FINDINGS: Gastrointestinal tract: Nonspecific bowel gas pattern. Mild gaseous distention of colon in the central abdomen. Gas distended bowel in the right and left mid to lower abdomen may represent colon or small bowel. Intraperitoneal space: No gross free air. Organs: Cholecystectomy clips are seen in the right upper quadrant. Bones/joints: Bones are unremarkable. Soft tissues: There are surgical clips in both breasts. XR/XR abdomen min 2V [id number] IMPRESSION: Nonspecific bowel gas pattern with gaseous distention of colon and probably small bowel.
[2023-04-17] MEDS: polyethylene glycol 3350 Pkt 17 gm NG-TUBE (13:03)
[2023-04-17] MEDS: carvedilol 25 mg Tablet PO ×2 (13:04→18:41)
[2023-04-17] MEDS: Fleet Enema 133 mL Enema PR (13:05)
[2023-04-17] MEDS: mineral oil 30 mL UDC NG-TUBE (13:07)
--- NOTE | 2023-04-17 14:07 | PM.PN ---
Subjective Subjective: No complaints Vitals/I&O/Wt Last Vital Signs Temp 97.8 F 04/17/23 12:00 Pulse 83 04/17/23 12:00 Resp 16 04/17/23 12:00 BP 140/81 04/17/23 12:00 Pulse Ox 100 04/17/23 12:00 O2 Del Method Nasal Cannula 04/17/23 12:00 04/16/23 04/17/23 04/17/23 22:59 06:59 14:59 Intake Total 1000 / 1000 640 / 1640 Output Total 100 / 100 Balance 1000 / 1000 540 / 1540 Weight last 48 hrs Weight 176 lb 4 oz Weight 174 lb Physical Exam Narrative: Patient is a well developed well nourished and in NAD and is afebrile with vitals stable and is answering questions appropriately with a normal affect and is alert and oriented x3 HEENT: normocephalic with normal external ears and nonicteric, oral mucosa moist and dentition normal for age, trachea midline with no large masses visualized Heart: RRR, no gallops murmurs or rubs, normal PMI with no thrills Lungs: normal excursions, no loud audible wheezing, no subcutaneous emphysema Abdomen: nondistended, no gross hepatosplenomegaly, no masses, no rigidity or rebound, no loud borborygmi Neuro: nonfocal, RAINES, grossly normal sensation Musculoskeletal: good muscle tone, no fasciculations, normal gait Skin: pink warm and dry with no rashes or ecchymosis Vascular: good radial pulses, no ulceration, less than 2 second capillary refill in hand : deferred Data 04/17/23 05:10 04/17/23 05:10 A&P Assessment and plan (1) Small bowel obstruction: Patient denies any flatus. AXR shows nonspecific gas pattern. Clean out from above and below. Attestations Medical Necessity Statement*: see hospitalist note Coding Level of Care Code Acute Code for Chg Fwd Diagnoses Small bowel obstruction K56.609
[2023-04-17] MEDS: ondansetron 2 mg/ML SDV 2 mL 4 MG IVP (14:18)
--- NOTE | 2023-04-17 17:30 | XRR_ITS ---
PROCEDURE INFORMATION: Exam: XR Chest Exam date and time: 04/17/2023 5:42 PM Age: 57 years old Clinical indication: Device placement; Ng tube; Additional info: Ng tube placement TECHNIQUE: Imaging protocol: Radiologic exam of the chest. Views: 1 view. COMPARISON: CR (CHEST, ) 04/16/2023 4:37 PM FINDINGS: Tubes, catheters and devices: Nasogastric tube is seen with tip of the catheter at the expected level of the distal stomach to the right of midline in the mid to upper abdomen. NG tube appears in good position with today's exam. Lungs: Unremarkable. No consolidation. Pleural spaces: Unremarkable. No pleural effusion. No pneumothorax. Heart/Mediastinum: Unremarkable. No cardiomegaly. Bones/joints: Visualized osseous structures show no acute abnormality. Soft tissues: Surgical clips inferior axillary region bilaterally and right upper quadrant. XR/XR chest 1V [id number] IMPRESSION: Nasogastric tube appears in good position with tip of the catheter at the expected level of the distal stomach.
[2023-04-17] MEDS: cetylpyridinium Lozenge 1 EACH MUCOUS MEM ×2 (18:39→21:25)
--- NOTE | 2023-04-17 19:44 | P.PN_ITS ---
Subjective Subjective: She has not had a bowel movement so far to manage this morning, has not passed flatus. They have been discussing options with surgery for conservative versus surgical intervention, and for now surgery has recommended continuing conservative management. Vitals/I&O/Wt Last Vital Signs Temp 98.1 F 04/17/23 16:00 Pulse 81 04/17/23 16:00 Resp 17 04/17/23 16:00 BP 152/82 04/17/23 16:00 Pulse Ox 96 04/17/23 16:00 O2 Del Method Room Air 04/17/23 16:00 04/17/23 04/17/23 04/17/23 06:59 14:59 22:59 Intake Total 640 / 1640 1000 / 1000 Output Total 100 / 100 750 / 750 Balance 540 / 1540 1000 / 1000 -750 / 250 Weight last 48 hrs Weight 79.946 kg Weight 78.925 kg Physical Exam Const: COMMON NORMALS: alert GENERAL APPEARANCE: cooperative ORIENTATION/CONSCIOUSNESS: Yes awake HENMT: COMMON NORMALS: oropharynx normal Neck/C-Spine: COMMON NORMALS: no JVD Resp: COMMON NORMALS: normal respiratory effort and clear to auscultation bilaterally AUSCULTATION: clear to auscultation bilaterally Cardio: COMMON NORMALS: no JVD, regular rhythm, S1 normal heart sound present, S2 normal heart sound present and No murmurs present (Cardio) RHYTHM: regular rhythm HEART SOUNDS: S1 normal heart sound present and S2 normal heart sound present GI: COMMON NORMALS: Soft to palpation INSPECTION: Yes abdominal distension AUSCULTATION: Yes Hypoactive bowel sounds present PALPATION: Yes Soft to palpation Extremity: COMMON NORMALS: no joint enlargement and no pedal edema Neuro: COMMON NORMALS: moves all extremities SENSORIUM/ORIENTATION: Yes alert Skin: COMMON NORMALS: no rashes or lesions noted GENERAL SKIN EXAM: no rashes or lesions noted Data 04/17/23 05:10 04/17/23 05:10 A&P Assessment and plan (1) Small bowel obstruction: Surgery continuing with conservative measures at this time including NGT decompression, bowel regimen, bowel rest. Continue IV hydration, at risk of severe and/or life-threatening dehydration, kidney injury, electrolyte abnormality, reassess chemistry. With reported history of cardiac arrest, monitor on telemetry. Reassessment chemistry requested. Today noted potassium 4.2, renal function noted improved with improvement in MARIBELL, BUN 12, creatinine 1. Liver parameters noted normal. Lipase normalized at 25. Likely secondary to vomiting. Otherwise without sign of infection currently. At risk of pneumonitis: Vomiting, but so far has had no signs. Follow-up CBC. Surgery documentation reviewed. Discussed with case management. Plan Resume additional home medications. She states particularly gets headaches without carvedilol, resumed. Changed PPI to IV for now. Attestations Medical Necessity Statement*: Continue admission for assessment management of small bowel obstruction. Diagnoses Small bowel obstruction K56.609
[2023-04-17] MEDS: quetiapine 25 mg Tablet PO (20:22)
[2023-04-17] MEDS: pregabalin 100 mg Capsule PO (20:22)
[2023-04-18] VITALS: BP 140/80; PULSE 79; RESP 18; TEMP 37; O2SAT 97
[2023-04-18] MEDS: heparin 5,000 unit/mL INJ 1 mL 5000 UNIT SUBCUT (01:54)
[2023-04-18] MEDS: cetylpyridinium Lozenge 1 EACH MUCOUS MEM ×3 (01:54→11:12)
[2023-04-18 04:00] VITALS: BP 131/78; PULSE 77; RESP 18; TEMP 36.6; O2SAT 97
[2023-04-18] MEDS: ketorolac 30 mg/mL INJ 15 MG IVP (05:23)
[2023-04-18] MEDS: sertraline 100 mg Tablet 200 MG PO (05:24)
[2023-04-18] MEDS: D5-NS 0.45% + KCL 20 mEq 20 MEQ/1,000 ML BAG 100 MEQ IV (05:24)
[2023-04-18 08:00] VITALS: BP 145/83; PULSE 74; RESP 16; TEMP 36.5; O2SAT 98
--- NOTE | 2023-04-18 08:00 | XR_ITS ---
WS: [id number] XR abdomen min 2V [id number] REASON FOR EXAM: sbo FINDINGS: Nasogastric tube overlying the fundus of the stomach. Mild gaseous distention of colon and a segment of small bowel. Nonspecific pattern. Appears to be dec reased distention of bowel compared to 04/17/2023. No free air or retroperitoneal air. No mass or significant calcification. XR/XR abdomen min 2V [id number] IMPRESSION: Nonspecific L gas pattern with mild distention of stomach and a loop of small b owel. The distention appears somewhat decreased compared to the previous day.
[2023-04-18] MEDS: pregabalin 100 mg Capsule PO ×2 (08:25→19:42)
[2023-04-18] MEDS: pantoprazole 40 mg SDV IVP (08:25)
[2023-04-18] MEDS: carvedilol 25 mg Tablet PO ×2 (08:25→18:07)
[2023-04-18] MEDS: cyclobenzaprine 10 mg Tablet PO (08:25)
[2023-04-18 09:47] LABS: Basophils % 0.3 %; Eosinophils # 0.1 10^3/uL (0.0-0.8); Eosinophils % 3.6 %; Hematocrit 35.1 % (37.0-47.0); Hemoglobin 11.1 g/dL (11.5-15.3); Lymphocytes # 1.1 10^3/uL (0.8-4.8); Lymphocytes % 26.8 %; Mean Corpuscular HGB Conc 31.6 g/dL (30.0-36.0); Mean Corpuscular Hemoglobin 25.9 pg (28.0-34.0); Mean Corpuscular Volume 81.8 fl (81-99); Mean Platelet Volume 11.1 fL (7.4-10.4); Monocytes # 0.2 10^3/uL (0.2-0.9); Monocytes % 5.6 %; Neutrophils # 2.49 10^3/uL (1.8-7.7); Neutrophils % 63.4 %; Nucleated Red Blood Cells % 0 %; Platelet Count 143 10^3/cmm (130-400); Red Blood Count 4.29 10^6/uL (4.1-5.3); Red Cell Distribution Width 14.6 % (12.1-15.1); White Blood Count 3.9 10^3/uL (4.0-10.0)
[2023-04-18 10:02] LABS: Alanine Aminotransferase 12 U/L (0-33); Albumin Level 3.6 g/dL (3.5-5.2); Alkaline Phosphatase 59 U/L (35-105); Anion Gap 9.9 (5-19); Aspartate Amino Transferase 11 U/L (0-32); Blood Urea Nitrogen 9 mg/dL (6-20); Calcium 8.2 mg/dL (8.5-10.5); Carbon Dioxide 25 mmol/L (22-29); Chloride 103 mmol/L (98-107); Globulin 2.1 g/dL (1.3-4.6); Glomerular Filtration Rate 64.8 mL/min (90-130); Glucose 115 mg/dL (65-115); Osmolality Calculated 278 mOsm/kg (285-295); Potassium 3.9 mmol/L (3.5-5.1); Sodium 134 mmol/L (136-145); Total Bilirubin 0.3 mg/dL (0.15-1.2); Total Protein 5.7 g/dL (6.6-8.7)
[2023-04-18] MEDS: bisacodyl 10 mg Supp PR (11:09)
[2023-04-18 12:00] VITALS: BP 163/83; PULSE 81; RESP 16; TEMP 36.4; O2SAT 98
--- NOTE | 2023-04-18 13:14 | PM.PN ---
Subjective Subjective: Patient seen and examined. Reports no nausea or emesis. Positive BM but she says she is not passing flatus Vitals/I&O/Wt Last Vital Signs Temp 97.7 F 04/18/23 08:00 Pulse 74 04/18/23 08:00 Resp 16 04/18/23 08:00 BP 145/83 04/18/23 08:00 Pulse Ox 98 04/18/23 08:00 O2 Del Method Room Air 04/18/23 08:00 04/17/23 04/18/23 04/18/23 22:59 06:59 14:59 Intake Total 1000 / 2000 Output Total 750 / 750 Balance -750 / 250 1000 / 1250 Weight last 48 hrs Weight 173 lb 4.8 oz Weight 176 lb 4 oz Physical Exam Narrative: General: No acute distress, awake alert and oriented x3 Abdomen: Soft, mild distention, mild diffuse tenderness, no guarding rebound or masses Data 04/18/23 09:24 04/18/23 09:24 A&P Assessment and plan (1) Small bowel obstruction: Plan Abdominal x-ray shows nonspecific bowel gas pattern. We will continue with conservative management for now. If she does not begin passing flatus in the next couple of days, we will have to consider diagnostic laparoscopy versus exploratory laparotomy. Medical management per hospitalist Attestations Medical Necessity Statement*: Per primary Coding Level of Care Code Acute Code for Chg Fwd Diagnoses Small bowel obstruction K56.609
[2023-04-18] MEDS: ondansetron 2 mg/ML SDV 2 mL 4 MG IVP (13:17)
--- NOTE | 2023-04-18 14:14 | PM.PN ---
Subjective Subjective: Patient was very anxious when I entered the room Had small bowel movement yesterday Patient was concerned that she will need surgery because last time she was asymptomatic and required surgical intervention by Dr. Petra Segura has not recommended any surgical intervention at this point Patient is not endorsing passage of flatus, continuation of conservative management for today, if no significant improvement then she might need diagnostic laparoscopy Vitals/I&O/Wt Last Vital Signs Temp 97.6 F 04/18/23 12:00 Pulse 81 04/18/23 12:00 Resp 16 04/18/23 12:00 BP 163/83 04/18/23 12:00 Pulse Ox 98 04/18/23 12:00 O2 Del Method Room Air 04/18/23 12:00 04/17/23 04/18/23 04/18/23 22:59 06:59 14:59 Intake Total 1000 / 2000 Output Total 750 / 750 Balance -750 / 250 1000 / 1250 Weight last 48 hrs Weight 78.608 kg Weight 79.946 kg Physical Exam Narrative: Abdomen is soft, bowel sounds present Patient looks comfortable No active distress No signs of peritonitis Currently on room air GCS 15 Hemodynamic stable Appears hydrated No signs of dehydration Data 04/18/23 09:24 04/18/23 09:24 A&P Assessment and plan (1) Small bowel obstruction: (2) Breast cancer: (3) DCIS (ductal carcinoma in situ): (4) Benign essential HTN: (5) History of cardiac arrest: (6) Recurrent syncope: (7) Borderline personality disorder: (8) Functional neurological symptom disorder with attacks or seizures: Plan Small bowel obstruction Conservative management Small bowel movement yesterday Not passing flatus Abdomen soft Abdominal series showing mild improvement as of today Abdomen is soft Clinically doing well without any active distress Patient was evaluated by Dr. Segura today In case of failure to show response with conservative management she may need surgical intervention DVT prophylaxis heparin Patient has history of functional neurological changes, personality disorder and depression continue antidepressants, she has been started on IV fluids because of her n.p.o. status N.p.o. Full code Attestations Medical Necessity Statement*: Continue medical management Diagnoses Small bowel obstruction K56.609 Breast cancer C50.919 DCIS (ductal carcinoma in situ) D05.10 Benign essential HTN I10 History of cardiac arrest Z86.74 Recurrent syncope R55 Borderline personality disorder F60.3 Functional neurological symptom disorder with attacks or seizures F44.5
[2023-04-18 16:00] VITALS: BP 156/69; PULSE 81; RESP 18; TEMP 36.8; O2SAT 99
--- NOTE | 2023-04-18 16:00 | PC.NURSE ---
Patient had a moderate bowel movement and is passing gas. Notified Dr. Segura. Orders to discontinue the NG tube and start clear liquids received. Patient given clear liquids at this time.
[2023-04-18] MEDS: acetaminophen 325 mg Tablet 650 MG PO (19:44)
[2023-04-18 20:00] VITALS: BP 132/71; PULSE 90; RESP 17; TEMP 36.6; O2SAT 97
[2023-04-18] MEDS: quetiapine 25 mg Tablet PO (20:40)
[2023-04-18] MEDS: simethicone 80 mg Chew PO (20:40)
[2023-04-19] VITALS: BP 132/80; PULSE 87; RESP 17; TEMP 36.1; O2SAT 98
[2023-04-19] MEDS: heparin 5,000 unit/mL INJ 1 mL 5000 UNIT SUBCUT (01:30)
[2023-04-19 04:00] VITALS: BP 129/68; PULSE 76; RESP 16; TEMP 36.7; O2SAT 97
[2023-04-19 05:46] LABS: Basophils % 0.3 %; Eosinophils # 0.1 10^3/uL (0.0-0.8); Eosinophils % 2.4 %; Hematocrit 34.8 % (37.0-47.0); Lymphocytes # 1.4 10^3/uL (0.8-4.8); Lymphocytes % 41.7 %; Mean Corpuscular HGB Conc 31.6 g/dL (30.0-36.0); Mean Corpuscular Hemoglobin 26.1 pg (28.0-34.0); Mean Corpuscular Volume 82.5 fl (81-99); Mean Platelet Volume 11.2 fL (7.4-10.4); Monocytes # 0.3 10^3/uL (0.2-0.9); Monocytes % 7.4 %; Neutrophils # 1.63 10^3/uL (1.8-7.7); Neutrophils % 48.2 %; Nucleated Red Blood Cells % 0 %; Platelet Count 146 10^3/cmm (130-400); Red Blood Count 4.22 10^6/uL (4.1-5.3); Red Cell Distribution Width 14.4 % (12.1-15.1); White Blood Count 3.4 10^3/uL (4.0-10.0)
[2023-04-19] MEDS: sertraline 100 mg Tablet 200 MG PO (05:46)
[2023-04-19 06:14] LABS: Alanine Aminotransferase 16 U/L (0-33); Albumin Level 3.5 g/dL (3.5-5.2); Alkaline Phosphatase 62 U/L (35-105); Anion Gap 11.1 (5-19); Aspartate Amino Transferase 16 U/L (0-32); Blood Urea Nitrogen 10 mg/dL (6-20); Calcium 8.7 mg/dL (8.5-10.5); Carbon Dioxide 27 mmol/L (22-29); Chloride 107 mmol/L (98-107); Globulin 2.3 g/dL (1.3-4.6); Glomerular Filtration Rate 64.8 mL/min (90-130); Glucose 81 mg/dL (65-115); Osmolality Calculated 290 mOsm/kg (285-295); Potassium 4.1 mmol/L (3.5-5.1); Sodium 141 mmol/L (136-145); Total Bilirubin 0.5 mg/dL (0.15-1.2); Total Protein 5.8 g/dL (6.6-8.7)
[2023-04-19 06:16] LABS: Magnesium 2.2 mg/dL (1.7-2.3)
[2023-04-19 07:54] VITALS: BP 145/85; PULSE 70; RESP 17; TEMP 36.3; O2SAT 98
[2023-04-19] MEDS: carvedilol 25 mg Tablet PO (09:36)
[2023-04-19] MEDS: pregabalin 100 mg Capsule PO (09:36)
[2023-04-19] MEDS: cyclobenzaprine 10 mg Tablet PO (09:36)
[2023-04-19] MEDS: simethicone 80 mg Chew PO (09:37)
--- NOTE | 2023-04-19 09:59 | P.DS_ITS ---
Discharge Providers Date of Admission: 04/16/23 10:01 Date of Discharge: April 19, 2023 Attending Provider at Admission: Isauro Mitchell Attending Provider at Discharge: Harjit Cardenas MD Primary Care Provider: Roseanne Marin Diagnoses at Discharge Discharge Diagnosis (1) Small bowel obstruction: Status: Acute (2) Breast cancer: Status: Acute (3) DCIS (ductal carcinoma in situ): Status: Acute (4) Benign essential HTN: Status: Acute (5) History of cardiac arrest: Status: Acute (6) Recurrent syncope: Status: Acute (7) Borderline personality disorder: Status: Chronic (8) Functional neurological symptom disorder with attacks or seizures: Status: Chronic Permanent problem details: Dr. Chepe Pickering-- Neurology [facility] Reason for Visit Reason for Visit: abd pain, N/V Hospital Course Hospital Course 57-year-old female who has history of DCIS/breast cancer, syncopal events, finished Holter monitoring with Dr. Jones, recurrent bowel obstruction, had adhesiolysis by Dr. Lambert in 2020 presented with chief complaint of recurrent nausea vomiting 3 days prior to admission, she was managed conservatively with NG to suction, antiemetics, her abdomen remains soft, she was experiencing bowel movement on daily basis throughout hospitalization, tolerating diet, NG tube has been removed, patient is being discharged with stable hemodynamics. She is tolerating her diet, no active nausea or vomiting. Repeat KUB showed improvement as well. Physical Exam Narrative: Awake and alert GCS 15 Abdomen soft Bowel sound present Doing well on room air Nonfocal neuro exam Pleasant and cooperative Discharge Data Studies Completed and Pending Completed Studies During Hospitalization Category Date Time Status CT abdomen pelvis wo con [id number] Stat Cat Scan 04/16/23 08:43 Completed XR abdomen min 2V [id number] Routine Exams 04/18/23 08:00 Completed XR abdomen min 2V [id number] Stat Exams 04/17/23 12:20 Completed XR chest 1V [id number] Stat Exams 04/17/23 17:30 Completed XR chest 1V portable [id number] Urgent Exams 04/16/23 16:01 Completed Radiology Impressions Abdomen/Pelvis CT 04/16/23 08:43 IMPRESSION: 1. Multiple dilated small bowel loops without definite transition point. Focal narrowing with tethered appearance of a small bowel loop in the central lower abdomen with dilated bowel loops proximal and distal. Suspect adhesive disease causing at least partial small bowel obstruction. 2. Additional chronic and incidental findings, to include punctate nonobstructive left nephrolith and atherosclerosis. THIS REPORT CONTAINS FINDINGS THAT MAY BE CRITICAL TO PATIENT CARE. The findings were verbally communicated via telephone conference with BLADE PAGAN at 9:38 AM CDT on 04/16/2023. The findings were acknowledged and understood. Chest X-Ray 04/17/23 17:30 IMPRESSION: Nasogastric tube appears in good position with tip of the catheter at the expected level of the distal stomach. Abdomen X-Ray 04/18/23 08:00 IMPRESSION: Nonspecific L gas pattern with mild distention of stomach and a loop of small bowel. The distention appears somewhat decreased compared to the previous day. Laboratory Results WBC 3.4 10^3/uL (4.0-10.0) L 04/19/23 05:32 Corrected WBC Cancelled 04/16/23 08:33 RBC 4.22 10^6/uL (4.1-5.3) 04/19/23 05:32 Hgb 11.0 g/dL (11.5-15.3) L 04/19/23 05:32 Hct 34.8 % (37.0-47.0) L 04/19/23 05:32 MCV 82.5 fl (81-99) 04/19/23 05:32 MCH 26.1 pg (28.0-34.0) L 04/19/23 05:32 MCHC 31.6 g/dL (30.0-36.0) 04/19/23 05:32 RDW 14.4 % (12.1-15.1) 04/19/23 05:32 Plt Count 146 10^3/cmm (130-400) 04/19/23 05:32 MPV 11.2 fL (7.4-10.4) H 04/19/23 05:32 Gran % Cancelled 04/16/23 08:33 Neut % (Auto) 48.2 % 04/19/23 05:32 Lymph % (Auto) 41.7 % 04/19/23 05:32 [place] % (Auto) 7.4 % 04/19/23 05:32 Eos % (Auto) 2.4 % 04/19/23 05:32 Baso % (Auto) 0.3 % 04/19/23 05:32 Neut # (Auto) 1.63 10^3/uL (1.8-7.7) L 04/19/23 05:32 Lymph # (Auto) 1.4 10^3/uL (0.8-4.8) 04/19/23 05:32 [place] # (Auto) 0.3 10^3/uL (0.2-0.9) 04/19/23 05:32 Eos # (Auto) 0.1 10^3/uL (0.0-0.8) 04/19/23 05:32 Baso # (Auto) 0.0 10^3/uL (0.0-0.1) 04/19/23 05:32 Absolute Gran (auto) Cancelled 04/16/23 08:33 Nucleated RBC % (auto) 0 % 04/19/23 05:32 Nucleated RBCs # 0.0 /100WBC 04/19/23 05:32 Sodium 141 mmol/L (136-145) 04/19/23 05:32 Potassium 4.1 mmol/L (3.5-5.1) 04/19/23 05:32 Chloride 107 mmol/L (98-107) 04/19/23 05:32 Carbon Dioxide 27 mmol/L (22-29) 04/19/23 05:32 Anion Gap 11.1 (5-19) 04/19/23 05:32 BUN 10 mg/dL (6-20) 04/19/23 05:32 Creatinine 0.9 mg/dL (0.5-0.9) 04/19/23 05:32 GFR Calculation 64.8 mL/min (90-130) L 04/19/23 05:32 Glucose 81 mg/dL (65-115) 04/19/23 05:32 Calculated Osmolality 290 mOsm/kg (285-295) 04/19/23 05:32 Lactic Acid 1.0 mmol/L (0.5-2.2) 04/16/23 08:48 Calcium 8.7 mg/dL (8.5-10.5) 04/19/23 05:32 Magnesium 2.2 mg/dL (1.7-2.3) 04/19/23 05:32 Total Bilirubin 0.5 mg/dL (0.15-1.2) 04/19/23 05:32 AST 16 U/L (0-32) 04/19/23 05:32 ALT 16 U/L (0-33) 04/19/23 05:32 Alkaline Phosphatase 62 U/L (35-105) 04/19/23 05:32 Total Protein 5.8 g/dL (6.6-8.7) L 04/19/23 05:32 Albumin 3.5 g/dL (3.5-5.2) 04/19/23 05:32 Globulin 2.3 g/dL (1.3-4.6) 04/19/23 05:32 Lipase 25 U/L (13-60) 04/17/23 05:10 Urine Color Yellow (Yellow) 04/16/23 08:58 Urine Appearance Clear (CLEAR) 04/16/23 08:58 Urine pH 5 (5-7) 04/16/23 08:58 Ur Specific [place] 1.015 (1.005-1.030) 04/16/23 08:58 Urine Protein Neg (Negative) 04/16/23 08:58 Urine Glucose (UA) Norm (Normal) 04/16/23 08:58 Urine Ketones Negative (Negative) 04/16/23 08:58 Urine Blood Neg (Negative) 04/16/23 08:58 Urine Nitrate Negative (Negative) 04/16/23 08:58 Urine Bilirubin Neg (Negative) 04/16/23 08:58 Urine Urobilinogen Norm mg/dL (Negative) 04/16/23 08:58 Ur Leukocyte Esterase Negative (Negative) 04/16/23 08:58 Vitals Last Vital Signs Temp 97.3 F L 04/19/23 07:54 Pulse 70 04/19/23 07:54 Resp 17 04/19/23 07:54 BP 145/85 04/19/23 07:54 Pulse Ox 98 04/19/23 07:54 O2 Del Method Room Air 04/19/23 07:54 Discharge Plan Discharge Patient Disposition: Home Condition: Stable Prescriptions: New lactulose [Constulose] 10 gram/15 mL solution 10 g PO DAILY PRN (Reason: laxative effect) Qty: 473 0RF Continued quetiapine [Seroquel] 25 mg tablet 25 mg PO BEDTIME Qty: 30 3RF sumatriptan succinate [Imitrex] 100 mg tablet See Rx Instructions PO .COMPLEX Qty: 90 3RF Rx Instructions: take 1 tab at onset of headache; if no relief, may repeat 1 tab after at least 2 hrs; max = 2 tabs/24 hrs PO furosemide 40 mg tablet 40 mg PO DAILY potassium chloride 10 mEq capsule, extended release 10 meq PO DAILY tamoxifen 20 mg tablet 20 mg PO DAILY Qty: 30 0RF pantoprazole 40 mg tablet,delayed release (DR/EC) 40 mg PO DAILY@08 Qty: 90 0RF carvedilol 25 mg tablet 25 mg PO BID Qty: 180 3RF Aimovig Autoinjector 140 mg/mL auto-injector See Rx Instructions .ROUTE .COMPLEX Qty: 1 5RF Dose Instruction: INJECT ONE PEN SUBCUTANEOUSLY ONCE PER MONTH FOR MIGRAINES Rx Instructions: INJECT ONE PEN SUBCUTANEOUSLY ONCE PER MONTH FOR MIGRAINES - ON THE 3RD OF EACH MONTH cyclobenzaprine 10 mg tablet 10 mg PO DAILY meloxicam 15 mg tablet 15 mg PO DAILY trazodone 100 mg tablet 200 mg PO BEDTIME PRN (Reason: Sleep) inulin-sorbitol 2 gram Tablet,Chewable 3 tab PO DAILY Zoloft 100 mg tablet 200 mg PO .morning acyclovir 800 mg tablet 800 mg PO TID PRN (Reason: BREAKOUTS) pregabalin 100 mg capsule 100 mg PO Q12H Discharge Orders: Discharge Order (Routine); Ordered 04/19/23 Ordered By: Harjit Cardenas Referrals: Roseanne Marin PA [Primary Care Provider] - Discharge Diet: As Directed Patient Instructions: Opioid Safety Activity Restrictions/Additional Instructions: Please try full liquids for 2 days and then soft diet for 3 days, advance gradually depending on your tolerance Discharge Attestations Time Spent in Discharge Care*: greater than 30 min Status at Discharge: Cognitive status at discharge: cognitively intact , Quality Metrics Clinical Quality Measures [ No reported AMI, CVA or VTE this stay] Coding Level of Care Code Acute Code for Chg Fwd Diagnoses Small bowel obstruction K56.609 Breast cancer C50.919 DCIS (ductal carcinoma in situ) D05.10 Benign essential HTN I10 History of cardiac arrest Z86.74 Recurrent syncope R55 Borderline personality disorder F60.3 Functional neurological symptom disorder with attacks or seizures F44.5
--- NOTE | 2023-04-19 11:04 | PC.SOCIAL ---
Pg 2 IMM Chema Collins Explained to pt Pg 2 IMM. No questions voiced. Provided pt a copy. Initialed, dated, & timed a copy & placed in chart.
[2023-04-19 12:56] VITALS: BP 145/85; PULSE 70; RESP 17; TEMP 36.3; O2SAT 98
== END 2023-04-19 12:58 | disposition home or self-care (01) | DRG 390 ==
LOC: ER 08:42 → MEDSURG 10:42
PROVIDERS: Physician Assistant; Admitting Provider Internal Medicine; Emergency Provider Family Medicine; PCP Physician Assistant; Visit Provider Internal Medicine
DX: K56.600 Partial intestinal obstruction, unspecified as to cause (principal); Z85.3 Personal history of malignant neoplasm of breast; Z79.891 Long term (current) use of opiate analgesic; Z79.4 Long term (current) use of insulin; I10 Essential (primary) hypertension; F60.3 Borderline personality disorder; F44.5 Conversion disorder with seizures or convulsions; Z85.820 Personal history of malignant melanoma of skin; Z90.13 Acquired absence of bilateral breasts and nipples
CPT/HCPCS: 36415; 71045; 74019; 74176; 80053; 81003; 83605; 83690; 83735; 85025; 96361; 96372; 96374; 96375; 99285; C9113; J1644; J1885; J2060; J2270; J2405; J7030

== ENCOUNTER → 2023-05-09 08:48 | Outpatient (BNVA) | payer MEDICARE, MEDICAID, SELFPAY | PROVIDERS: PCP Physician Assistant; Visit Provider Specialist | DX: G43.711 Chronic migraine without aura, intractable, with status migrainosus; R41.82 Altered mental status, unspecified; F60.3 Borderline personality disorder; R55 Syncope and collapse | CPT/HCPCS: 99214 ==

== ENCOUNTER → 2023-05-13 07:39 | Outpatient (BNVA) | payer MEDICAID, SELFPAY | PROVIDERS: PCP Physician Assistant; Referring Provider Specialist; Visit Provider Specialist | DX: R41.82 Altered mental status, unspecified (principal) | CPT/HCPCS: 95812; 95816 ==

== ENCOUNTER 2023-05-24 08:22 | Outpatient (RCR) | payer MEDICARE, MEDICAID, SELFPAY | END 2023-06-09 23:59 | disposition home or self-care (01) | LOC: SPT 08:22 | PROVIDERS: PCP Physician Assistant; Visit Provider Physician Assistant | DX: M54.2 Cervicalgia (principal); G89.29 Other chronic pain | CPT/HCPCS: 97110; 97140; 97162 ==

== ENCOUNTER 2023-05-29 15:16 | Emergency (ER) | payer MEDICARE, MEDICAID, SELFPAY ==
[2023-05-29 15:20] VITALS: BP 147/88; PULSE 86; RESP 18; TEMP 36.9; O2SAT 97
--- NOTE | 2023-05-29 16:02 | ED_ITS ---
HPI - Abdominal Pain General: Chief Complaint: Abdominal Pain Stated Complaint: constipation Time Seen by Provider: 05/29/23 15:48 Source: patient Mode of arrival: ambulatory History of Present Illness: This 57-year-old female with a history of hypertension, migraine headaches and small bowel obstruction presents to the ER with upper abdominal pain that started 2 days ago. Pain is constant, sharp in nature and has progressively worsened. She is nauseated but has no vomiting. Following her last visit, she was sent home with laxatives which she has been taking. As a result, she has been having occasional diarrhea from it. Last bowel movement was shortly before she came to the ER. Patient denies fever, headaches, chest pain or shortness of breath. She rates the pain at 8 out of 10. She appears clinically stable and not toxic appearing. Associated Symptoms: Reports nausea; Denies chills, dysuria and vomiting Review of Systems Const: Denies: chills, body aches or change in appetite Eyes: Denies: change in vision or eye discharge ENMT: Denies: throat pain, dental pain or nasal discharge Card: Denies: chest pain or lightheadedness GI: Reports: abdominal pain (Upper abdomen) and nausea; Denies: vomiting : Denies: dysuria Musc: Denies: neck pain or back pain Neuro: Denies: headache(s) or weakness in extremities Psych: Denies: depression Cecil/Lymph: Denies: easy bruising All/Imm: Denies: urticaria, tongue swelling or facial swelling PFSH ED PFSH: Medical History Benign essential HTN Borderline personality disorder Breast cancer Chronic migraine without aura, intractable, with status migrainosus DCIS (ductal carcinoma in situ) Depression with anxiety Fear of insects (Unknown) Specifically tics Functional neurological symptom disorder with attacks or seizures Dr. Chepe Pickering-- Neurology [facility] Herpes genitalia History of cardiac arrest History of malignant melanoma Hot flashes HTN (hypertension) with goal to be determined Inappropriate sinus tachycardia Irritable bowel disease Long-term current use of opiate analgesic Lumbar radiculitis Major depressive disorder, recurrent, severe with psychotic symptoms [facility] managing Malignant hypertension Pain management contract signed Psychiatric care Recurrent syncope Small bowel obstruction Surgical History Bowel obstruction (~01/15/21) surgical repair by DR. Lambert H/O tubal ligation (~2008) History of augmentation of both breasts (~2012) SILICONE IMPLANTS History of colonoscopy Hx of abdominoplasty (~2009) Hx of bilateral mastectomy Hx of section (~2008) x 1 Hx of decompressive lumbar laminectomy ---2014 L5-S1 [facility][1] IN [place], [place] ---10/20/2020 Revision; Dr Dalia ALBERT Hx of hernia repair (~2012) ventral (patient thinks mesh was used) Hx of hysterectomy (~2008) CHRISTINA-- ovaries spared. Intra-abdominal adhesions (~10/2020) adhesiolysis / incidental appendectomy-- at same time as bowel obstruction Family History Mother Breast cancer dx age unknown Hypertension Grandmother Breast cancer Maternal--dx age 60's Hypertension Maternal and Paternal Sister No problems noted. Daughter Uterine cancer dx age 28 Father Diabetes Hypertension Stroke Grandfather Hypertension maternal and Paternal Denies family history of Colon cancer Ovarian cancer Social History Smoking and tobacco status: never smoked Alcohol intake: current Alcohol intake frequency: holidays/special occasions only Alcohol type: wine Substance/Drug Use: never Do you think of yourself as: Straight/Heterosexual Physical Exam Const: COMMON NORMALS: no acute distress, patient oriented x3, no limitations and alert HENMT: COMMON NORMALS: normocephalic HEAD & SCALP: normocephalic Eye: COMMON NORMALS: EOMs intact bilaterally Neck/C-Spine: COMMON NORMALS: full ROM and supple Chest: COMMONS NORMALS: normal inspection of the chest Resp: COMMON NORMALS: normal respiratory effort, No retractions, No use of accessory muscles and clear to auscultation bilaterally AUSCULTATION: clear to auscultation bilaterally Cardio: COMMON NORMALS: regular rate, regular rhythm and No murmurs present (Cardio) RATE: regular rate RHYTHM: regular rhythm GI: COMMON NORMALS: No hepatosplenomegaly present PALPATION: Yes Tenderness to palpation present (GI) (Upper abdomen) and Yes No hepatosplenomegaly present GI image (female): 1. Tenderness in upper abdomen. No abdominal distention or rigidity. Normal bowel sounds. : COMMON NORMALS: Yes no CVA tenderness BLADDER/KIDNEY EXAM: Yes no CVA tenderness Back/Pelvis: COMMON NORMALS: no CVA tenderness and no thoracic nor lumbar tenderness Extremity: GENERAL: Yes normal exam except as noted Neuro: COMMON NORMALS: patient oriented x3 and no focal motor deficits SENSORIUM/ORIENTATION: Yes alert Psych: COMMON NORMALS: mental status grossly normal and cooperative Course Vital Signs: Vital signs: Vital Signs Temperature 98.4 F 05/29/23 15:20 Pulse Rate 86 05/29/23 15:20 Respiratory Rate 18 05/29/23 15:20 Blood Pressure 147/88 05/29/23 15:20 Pulse Oximetry 97 05/29/23 18:06 Oxygen Delivery Me thod Room Air 05/29/23 15:20 MDM - Abdominal Pain Medical Decision Making Medical decision making: Patient's pain is located in the upper half of the abdomen, mainly in the epigastric region. It started 2 days ago. On exam, there is tenderness in the area but abdomen is nonsurgical. CT abdomen/pelvis shows mild wall thickening within the stomach and proximal small bowel. GI cocktail was given. There is no sign of acute obstruction. Patient's symptoms are most consistent with gastritis and she was advised to take 40 mg of Protonix daily. Prescription for tramadol was given. She will follow-up with her primary care physician. Reasons to return were discussed. Lab Data 05/29/23 16:32 05/29/23 16:32 Labs/Radiology: Radiology Impressions Abdomen/Pelvis CT 05/29/23 16:23 IMPRESSION: 1. Previous cholecystectomy and hysterectomy. 2. No bowel obstruction. 3. Mild wall thickening within the stomach and proximal small bowel along with fluid content in the colon. Consider underlying inflammation or infection/gastroenteritis. 4. Other nonacute chronic changes with prior exam as noted above. COMMENTS: Consistent with the [employer]'s Incidental Findings Committee white paper (J Am Giuliano Radiol 2018): Any incidental renal lesion less than 1 cm or classified as too small to characterize, or any incidental cystic renal lesion characterized as simple-appearing, is likely benign. No follow-up imaging is recommended for these lesions per consensus recommendations based on imaging criteria. Laboratory Results WBC 4.6 10^3/uL (4.0-10.0) 05/29/23 16:32 RBC 4.37 10^6/uL (4.1-5.3) 05/29/23 16:32 Hgb 12.2 g/dL (11.5-15.3) 05/29/23 16:32 Hct 36.6 % (37.0-47.0) L 05/29/23 16:32 MCV 83.8 fl (81-99) 05/29/23 16:32 MCH 27.9 pg (28.0-34.0) L 05/29/23 16: MCHC 33.3 g/dL (30.0-36.0) 05/29/23 16:32 RDW 14.6 % (12.1-15.1) 05/29/23 16:32 Plt Count 166 10^3/cmm (130-400) 05/29/23 16: MPV 10.5 fL (7.4-10.4) H 05/29/23 16:32 Neut % (Auto) 41.2 % 05/29/23 16:32 Lymph % (Auto) 47.5 % 05/29/23 16:32 [place] % (Auto) 8.5 % 05/29/23 16:32 Eos % (Auto) 2.2 % 05/29/23 16:32 Baso % (Auto) 0.4 % 05/29/23 16: Neut # (Auto) 1.88 10^3/uL (1.8-7.7) 05/29/23 16:32 Lymph # (Auto) 2.2 10^3/uL (0.8-4.8) 05/29/23 16:32 [place] # (Auto) 0.4 10^3/uL (0.2-0.9) 05/29/23 16:32 Eos # (Auto) 0.1 10^3/uL (0.0-0.8) 05/29/23 16:32 Baso # (Auto) 0.0 10^3/uL (0.0-0.1) 05/29/23 16:32 Nucleated RBC % (auto) 0 % 05/29/23 16:32 Nucleated RBCs # 0.0 /100WBC 05/29/23 16:32 Sodium 138 mmol/L (136-145) 05/29/23 16:32 Potassium 3.9 mmol/L (3.5-5.1) 05/29/23 16:32 Chloride 105 mmol/L (98-107) 05/29/23 16:32 Carbon Dioxide 24 mmol/L (22-29) 05/29/23 16:32 Anion Gap 12.9 (5-19) 05/29/23 16:32 BUN 11 mg/dL (6-20) 05/29/23 16:32 Creatinine 1.1 mg/dL (0.5-0.9) H 05/29/23 16:32 GFR Calculation 51.4 mL/min (90-130) L 05/29/23 16:32 Glucose 82 mg/dL (65-115) 05/29/23 16:32 Calculated Osmolality 284 mOsm/kg (285-295) L 05/29/23 16:32 Calcium 8.5 mg/dL (8.5-10.5) 05/29/23 16:32 Total Bilirubin 0.4 mg/dL (0.15-1.2) 05/29/23 16:32 AST 23 U/L (0-32) 05/29/23 16:32 ALT 21 U/L (0-33) 05/29/23 16:32 Alkaline Phosphatase 68 U/L (35-105) 05/29/23 16:32 Total Protein 6.2 g/dL (6.6-8.7) L 05/29/23 16:32 Albumin 4.2 g/dL (3.5-5.2) 05/29/23 16:32 Globulin 2.0 g/dL (1.3-4.6) 05/29/23 16:32 Lipase 32 U/L (13-60) 05/29/23 16:32 Urine Color Yellow (Yellow) 05/29/23 16:16 Urine Appearance Clear (CLEAR) 05/29/23 16:16 Urine pH 7 (5-7) 05/29/23 16:16 Ur Specific [place] 1.010 (1.005-1.030) 05/29/23 16:16 Urine Protein Neg (Negative) 05/29/23 16:16 Urine Glucose (UA) Norm (Normal) 05/29/23 16:16 Urine Ketones Negative (Negative) 05/29/23 16:16 Urine Blood Neg (Negative) 05/29/23 16:16 Urine Nitrate Negative (Negative) 05/29/23 16:16 Urine Bilirubin Neg (Negative) 05/29/23 16:16 Urine Urobilinogen Norm mg/dL (Negative) 05/29/23 16:16 Ur Leukocyte Esterase Negative (Negative) 05/29/23 16:16 Discharge Plan Discharge Patient Disposition: Home Clinical Impression: Gastritis Condition: Stable Prescriptions: New tramadol 50 mg tablet 50 mg PO TID PRN (Reason: pain) Qty: 20 0RF No Action quetiapine [Seroquel] 25 mg tablet 25 mg PO BEDTIME Qty: 30 3RF sumatriptan succinate [Imitrex] 100 mg tablet See Rx Instructions PO .COMPLEX Qty: 90 3RF Rx Instructions: take 1 tab at onset of headache; if no relief, may repeat 1 tab after at least 2 hrs; max = 2 tabs/24 hrs PO furosemide 40 mg tablet 40 mg PO DAILY potassium chloride 10 mEq capsule, extended release 10 meq PO DAILY sertraline [Zoloft] 100 mg tablet 100 mg PO .morning Qty: 30 3RF Rx Instructions: Take one tablet every morning pantoprazole 40 mg tablet,delayed release (DR/EC) 40 mg PO DAILY@08 Qty: 90 0RF carvedilol 25 mg tablet 25 mg PO BID Qty: 180 3RF Aimovig Autoinjector 140 mg/mL auto-injector See Rx Instructions .ROUTE .COMPLEX Qty: 1 5RF Dose Instruction: INJECT ONE PEN SUBCUTANEOUSLY ONCE PER MONTH FOR MIGRAINES Rx Instructions: INJECT ONE PEN SUBCUTANEOUSLY ONCE PER MONTH FOR MIGRAINES - ON THE 3RD OF EACH MONTH cyclobenzaprine 10 mg tablet 10 mg PO DAILY meloxicam 15 mg tablet 15 mg PO DAILY inulin-sorbitol 2 gram Tablet,Chewable 3 tab PO DAILY Constulose 10 gram/15 mL solution 10 g PO DAILY PRN (Reason: laxative effect) Qty: 473 0RF acyclovir 800 mg tablet 800 mg PO TID PRN (Reason: BREAKOUTS) pregabalin 100 mg capsule 100 mg PO Q12H Discharge Orders: Discharge ED (Routine); Ordered 05/29/23 Ordered By: Jeff King Referrals: Roseanne Marin PA [Primary Care Provider] - Patient Instructions: Opioid Safety, Pain Management Activity Restrictions/Additional Instructions: Take pantoprazole 40 mg daily. Take tramadol as needed for pain. Maintain adequate fluid intake. Follow-up with your primary care physician within a week for reevaluation. Return if you develop fever, worsening pain, intractable vomiting or any new concerning symptoms. Coding Level of Care Code ED Volunteer Services Coordinator for 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
--- NOTE | 2023-05-29 16:23 | CTR_ITS ---
PROCEDURE INFORMATION: Exam: CT Abdomen And Pelvis With Contrast Exam date and time: 05/29/2023 4:46 PM Age: 57 years old Clinical indication: Abdominal pain; Localized; Upper; Prior surgery; Surgery date: 6+ months; Surgery type: Hernia hysto bowel; Additional info: Upper abdominal pain TECHNIQUE: Imaging protocol: Computed tomography of the abdomen and pelvis with contrast. Radiation optimization: All CT scans at this facility use at least one of these dose optimization techniques: automated exposure control; mA and/or kV adjustment per patient size (includes targeted exams where dose is matched to clinical indication); or iterative reconstruction. Contrast material: [id number]; Contrast volume: 100 ml; Contrast route: INTRAVENOUS (IV); REPORTING DATA: Count of CT and Cardiac NM exams in prior 12 months: This patient has received 2 known CTs and 0 known cardiac nuclear medicine studies in the 12 months prior to the current study. COMPARISON: CT abdomen pelvis wo con [id number] 04/16/2023 8:59 AM RADIATION DOSE METRICS: Total DLP (mGy-cm): 594.39 FINDINGS: Lungs: No significant infiltrate or effusion is seen within the visualized lung bases. Liver: Normal. No mass. Gallbladder and bile ducts: Cholecystectomy. No biliary ductal dilatation. Pancreas: Normal. No ductal dilation. Spleen: Normal. No splenomegaly. Adrenal glands: Normal. No mass. Kidneys and ureters: Small or tiny rounded hypodense focus mid to upper pole cortex of the left kidney likely small renal cyst. Small chronic nonobstructing renal calculus lower pole left kidney with prior exam. No obstructive uropathy or perinephric stranding. Stomach and bowel: No significant dilatation of small-bowel or small bowel obstruction. Fluid content is seen within bowel, including the colon. Mild wall thickening within proximal small bowel and stomach. No focal mesenteric stranding. Appendix: The appendix is not visualized. No pericecal inflammatory change. Intraperitoneal space: Postsurgical scarring of the anterior abdominal/pelvic wall as noted with prior exam. No free fluid or ascites. No free air. Vasculature: Mild atherosclerotic vascular disease without aneurysmal dilatation of the abdominal aorta. Lymph nodes: Unremarkable. No enlarged lymph nodes. Urinary bladder: Unremarkable as visualized. Reproductive: Previous hysterectomy. Bones/joints: Moderate degenerative disc disease at the lumbosacral junction. Soft tissues: Small chronic appearing fluid collections along the chest wall/breast region with prior exam with previous reported postsurgical removal breast implants. CT/CT abdomen pelvis w con* [id number] IMPRESSION: 1. Previous cholecystectomy and hysterectomy. 2. No bowel obstruction. 3. Mild wall thickening within the stomach and proximal small bowel along with fluid content in the colon. Consider underlying inflammation or infection/gastroenteritis. 4. Other nonacute chronic changes with prior exam as noted above. COMMENTS: Consistent with the [place] [employer]'s Incidental Findings Committee white paper (J Am Giuliano Radiol 2018): Any incidental renal lesion less than 1 cm or classified as too small to characterize, or any incidental cystic renal lesion characterized as simple-appearing, is likely benign. No follow-up imaging is recommended for these lesions per consensus recommendations based on imaging criteria.
[2023-05-29 16:28] LABS: Add Urine Microscopic? NO; Charge for UA Resulting for Rev
[2023-05-29] MEDS: metoclopramide 5 mg/mL SDV 2 mL 10 MG IVP (16:32)
[2023-05-29] MEDS: sodium chloride 0.9% 1,000 ML 999 ML IV (16:32)
[2023-05-29 16:36] LABS: Bilirubin Urine Neg (Negative); Blood Urine Neg (Negative); Glucose Urine UA Norm (Normal); Ketones Urine Negative (Negative); Leukocyte Esterase Urine Negative (Negative); Nitrate Urine Negative (Negative); Protein Urine Neg (Negative); Urine Appearance Clear (CLEAR); Urine Color Yellow (Yellow); Urobilinogen Urine Norm (Negative); pH Urine 7 (5-7)
[2023-05-29 16:48] LABS: Basophils % 0.4 %; Eosinophils # 0.1 10^3/uL (0.0-0.8); Eosinophils % 2.2 %; Hematocrit 36.6 % (37.0-47.0); Hemoglobin 12.2 g/dL (11.5-15.3); Lymphocytes # 2.2 10^3/uL (0.8-4.8); Lymphocytes % 47.5 %; Mean Corpuscular HGB Conc 33.3 g/dL (30.0-36.0); Mean Corpuscular Hemoglobin 27.9 pg (28.0-34.0); Mean Corpuscular Volume 83.8 fl (81-99); Mean Platelet Volume 10.5 fL (7.4-10.4); Monocytes # 0.4 10^3/uL (0.2-0.9); Monocytes % 8.5 %; Neutrophils # 1.88 10^3/uL (1.8-7.7); Neutrophils % 41.2 %; Nucleated Red Blood Cells % 0 %; Platelet Count 166 10^3/cmm (130-400); Red Blood Count 4.37 10^6/uL (4.1-5.3); Red Cell Distribution Width 14.6 % (12.1-15.1); White Blood Count 4.6 10^3/uL (4.0-10.0)
[2023-05-29] MEDS: iohexol 350 mg/mL 500 mL Btl (per mL) IV (16:49)
[2023-05-29] MEDS: morphine 4 mg/mL SDV 1 mL IVP (16:53)
[2023-05-29 17:05] LABS: Alanine Aminotransferase 21 U/L (0-33); Albumin Level 4.2 g/dL (3.5-5.2); Alkaline Phosphatase 68 U/L (35-105); Anion Gap 12.9 (5-19); Aspartate Amino Transferase 23 U/L (0-32); Blood Urea Nitrogen 11 mg/dL (6-20); Calcium 8.5 mg/dL (8.5-10.5); Carbon Dioxide 24 mmol/L (22-29); Chloride 105 mmol/L (98-107); Glomerular Filtration Rate 51.4 mL/min (90-130); Glucose 82 mg/dL (65-115); Osmolality Calculated 284 mOsm/kg (285-295); Potassium 3.9 mmol/L (3.5-5.1); Sodium 138 mmol/L (136-145); Total Bilirubin 0.4 mg/dL (0.15-1.2); Total Protein 6.2 g/dL (6.6-8.7)
[2023-05-29] MEDS: aluminum-mag hydrox-simethicon 30 ML, sucralfate oral liq 1 GM PO (18:03)
[2023-05-29 18:06] VITALS: O2SAT 97
[2023-05-29 18:25] LABS: Lipase 32 U/L (13-60)
== END 2023-05-29 19:04 | disposition home or self-care (01) ==
PROVIDERS: Emergency Medicine; Emergency Provider Family Medicine; PCP Physician Assistant
DX: K29.70 Gastritis, unspecified, without bleeding (principal); Z85.3 Personal history of malignant neoplasm of breast; I10 Essential (primary) hypertension
CPT/HCPCS: 74177; 80053; 81003; 83690; 85025; 96361; 96374; 96375; 99285; J2270; J2765; J7030; Q9967

== ENCOUNTER 2023-06-14 01:55 | Emergency (ER) | payer MEDICARE, MEDICAID, SELFPAY ==
[2023-06-14 01:56] VITALS: BP 137/64; PULSE 85; RESP 18; TEMP 36.6; O2SAT 98; BMI 32.1
--- NOTE | 2023-06-14 02:00 | ECG_ITS ---
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 Measurements Intervals [place] Rate: 78 P: 43 OR: 150 QRS: 25 QRSD: 88 T: 37 QT: 349 QTc: 400 Interpretive Statements SINUS RHYTHM WITH OCCASIONAL VENTRICULAR PREMATURE COMPLEXES Compared to ECG 09/02/2022 13:55:34 Ventricular premature complex(es) now present Electronically Signed On 06-14-2023 12:05:23 CDT by Simon Robison M.D. [email or web address] [email or web address].[employer]/store/NU/[id number] f
--- NOTE | 2023-06-14 02:03 | ED_ITS ---
HPI - Syncope General: Chief Complaint: Syncope Stated Complaint: fatigue, diarrhea, syncope Time Seen by Provider: 06/14/23 02:00 History of Present Illness: Patient presents to the ER by EMS with complaints of a syncopal episode and diarrhea. Patient says she passed out while getting ready go to the bathroom and woke up with a bowel movement all over her that was diarrhea. Patient reports she may have been down and out for an unknown amount of time. Patient states she is normally constipated but today she had diarrhea multiple times. Patient also was complaining of leg cramps bilaterally. Patient is currently on Lasix but she also takes potassium. Patient does have a history of acute hypokalemia. Review of Systems General: Reports: 10 or more systems reviewed and unremarkable except in HPI and below PFSH ED PFSH: Medical History Benign essential HTN Borderline personality disorder Breast cancer Chronic migraine without aura, intractable, with status migrainosus DCIS (ductal carcinoma in situ) Depression with anxiety Fear of insects (Unknown) Specifically tics Functional neurological symptom disorder with attacks or seizures Dr. Chepe Pickering-- Neurology [facility] Herpes genitalia History of cardiac arrest History of malignant melanoma Hot flashes HTN (hypertension) with goal to be determined Inappropriate sinus tachycardia Irritable bowel disease Long-term current use of opiate analgesic Lumbar radiculitis Major depressive disorder, recurrent, severe with psychotic symptoms [facility] managing Malignant hypertension Pain management contract signed Psychiatric care Recurrent syncope Small bowel obstruction Surgical History Bowel obstruction (~01/15/21) surgical repair by DR. Lambert H/O tubal ligation (~2008) History of augmentation of both breasts (~2012) SILICONE IMPLANTS History of colonoscopy Hx of abdominoplasty (~2009) Hx of bilateral mastectomy Hx of section (~2008) x 1 Hx of decompressive lumbar laminectomy ---2014 L5-S1 [facility] IN [place], [place] ---10/20/2020 Revision; Dr Dalia ALBERT Hx of hernia repair (~2012) ventral (patient thinks mesh was used) Hx of hysterectomy (~2008) CHRISTINA-- ovaries spared. Intra-abdominal adhesions (~10/2020) adhesiolysis / incidental appendectomy-- at same time as bowel obstruction Family History Mother Breast cancer dx age unknown Hypertension Grandmother Breast cancer Maternal--dx age 60's Hypertension Maternal and Paternal Sister No problems noted. Daughter Uterine cancer dx age 28 Father Diabetes Hypertension Stroke Grandfather Hypertension maternal and Paternal Denies family history of Colon cancer Ovarian cancer Social History Smoking and tobacco status: never smoked Alcohol intake: current Alcohol intake frequency: holidays/special occasions only Alcohol type: wine Substance/Drug Use: never Do you think of yourself as: Straight/Heterosexual Physical Exam Const: COMMON NORMALS: no acute distress, average body habitus, patient oriented x3, no limitations, healthy appearing, alert and well nourished HENMT: COMMON NORMALS: normocephalic, atraumatic, hearing grossly normal bilaterally, external ears normal, Normal external nose present and moist oral mucous membranes HEAD & SCALP: normocephalic and atraumatic NOSE: Normal external nose present EXTERNAL EAR: Yes external ears normal Eye: COMMON NORMALS: Equal, round and reactive pupils present, EOMs intact bilaterally, conjunctivae normal and no scleral icterus CONJUNCTIVA: Yes conjunctivae normal PUPIL: Yes Equal, round and reactive pupils present Neck/C-Spine: COMMON NORMALS: full ROM, no lymphadenopathy, supple, no meningeal signs, no JVD and Thyroid normal THYROID: Thyroid normal Lymph: LYMPHATIC: no lymphadenopathy noted Chest: COMMONS NORMALS: normal inspection of the chest and normal palpation of entire chest wall Resp: COMMON NORMALS: normal respiratory effort, No retractions, No use of accessory muscles and clear to auscultation bilaterally AUSCULTATION: clear to auscultation bilaterally Cardio: COMMON NORMALS: no JVD, regular rate, regular rhythm, S1 normal heart sound present, S2 normal heart sound present, No gallops present (Cardio), No clicks present (Cardio), No murmurs present (Cardio) and No rub (Cardio) RATE: regular rate RHYTHM: regular rhythm HEART SOUNDS: S1 normal heart sound present and S2 normal heart sound present GI: COMMON NORMALS: Normal to inspection, nondistended, normoactive bowel sounds present, Soft to palpation, non-tender, No hepatosplenomegaly present and no masses PALPATION: Yes Soft to palpation and Yes No hepatosplenomegaly present : COMMON NORMALS: Yes no CVA tenderness BLADDER/KIDNEY EXAM: Yes no CVA tenderness Back/Pelvis: COMMON NORMALS: no CVA tenderness Neuro: COMMON NORMALS: patient oriented x3 SENSORIUM/ORIENTATION: Yes alert MENINGEAL SIGNS: Yes no meningeal signs Course Vital Signs: Vital signs: Vital Signs Temperature 97.8 F 06/14/23 01:56 Pulse Rate 78 06/14/23 03:56 Respiratory Rate 16 06/14/23 03:56 Blood Pressure 128/60 06/14/23 03:56 Pulse Oximetry 97 06/14/23 03:56 Oxygen Delivery Me thod Room Air 06/14/23 03:08 MDM - Syncope Medical Decision Making Patient presents to the ER with complaints of diarrhea and passing out. Appears patient had a vasovagal episode after having diarrhea. Lab work was obtained which was essentially benign. These findings was detailed to the patient. Patient is okay with being discharged home to follow-up with her PCP on an as- needed basis. Differential Diagnosis Likely vasovagal syncope; Unlikely syncope due to orthostatic hypotension, complete atrioventricular block, subarachnoid hemorrhage, pulmonary embolism or dehydration Medical Records I reviewed the patient's medical records. Lab Data I reviewed the patient's lab results. 06/14/23 02:25 06/14/23 02:25 Laboratory Results WBC 9.19 10^3/uL (3.29-11.43) 06/14/23 02:25 RBC 5.29 10^6/uL (3.85-5.65) 06/14/23 02:25 Hgb 14.90 g/dL (11.27-16.99) 06/14/23 02:25 Hct 44.3 % (36-47) 06/14/23 02:25 MCV 83.7 fl (85-98) L 06/14/23 02:25 MCH 28.2 pg (27-33) 06/14/23 02:25 MCHC 33.6 g/dL (30-55) 06/14/23 02:25 RDW 14.0 % (12.1-15.1) 06/14/23 02:25 Plt Count 236 10^3/cmm (157-399) 06/14/23 02:25 MPV 11.1 fL (7.4-10.4) H 06/14/23 02:25 Neut % (Auto) 72.8 % 06/14/23 02:25 Lymph % (Auto) 20.2 % 06/14/23 02:25 [place] % (Auto) 5.0 % 06/14/23 02:25 Eos % (Auto) 1.4 % 06/14/23 02:25 Baso % (Auto) 0.4 % 06/14/23 02:25 Neut # (Auto) 6.68 10^3/uL (1.8-7.7) 06/14/23 02:25 Lymph # (Auto) 1.9 10^3/uL (0.8-4.8) 06/14/23 02:25 [place] # (Auto) 0.5 10^3/uL (0.2-0.9) 06/14/23 02:25 Eos # (Auto) 0.1 10^3/uL (0.0-0.8) 06/14/23 02:25 Baso # (Auto) 0.0 10^3/uL (0.0-0.1) 06/14/23 02:25 Nucleated RBC % (auto) 0 % 06/14/23 02:25 Nucleated RBCs # 0.0 /100WBC 06/14/23 02:25 Sodium 139 mmol/L (136-145) 06/14/23 02:25 Potassium 4.4 mmol/L (3.5-5.1) 06/14/23 02:25 Chloride 106 mmol/L (98-107) 06/14/23 02:25 Carbon Dioxide 22 mmol/L (22-29) 06/14/23 02:25 Anion Gap 15.4 (5-19) 06/14/23 02:25 BUN 31 mg/dL (6-20) H 06/14/23 02:25 Creatinine 1.3 mg/dL (0.5-0.9) H 06/14/23 02:25 GFR Calculation 42.4 mL/min (90-130) L 06/14/23 02:25 Glucose 141 mg/dL (65-115) H 06/14/23 02:25 Calculated Osmolality 297 mOsm/kg (285-295) H 06/14/23 02:25 Calcium 9.8 mg/dL (8.5-10.5) 06/14/23 02:25 Magnesium 2.2 mg/dL (1.7-2.3) 06/14/23 02:25 Total Bilirubin 0.4 mg/dL (0.15-1.2) 06/14/23 02:25 AST 14 U/L (0-32) 06/14/23 02:25 ALT 15 U/L (0-33) 06/14/23 02:25 Alkaline Phosphatase 79 U/L (35-105) 06/14/23 02:25 Total Protein 7.4 g/dL (6.6-8.7) 06/14/23 02:25 Albumin 4.7 g/dL (3.5-5.2) 06/14/23 02:25 Globulin 2.7 g/dL (1.3-4.6) 06/14/23 02:25 Prolactin 15.65 ng/mL (4.8-23.3) 06/14/23 02:25 Urine Color Yellow (Yellow) 06/14/23 02:45 Urine Appearance Cloudy (CLEAR) A 06/14/23 02:45 Urine pH 5 (5-7) 06/14/23 02:45 Ur Specific [place] 1.030 (1.005-1.030) 06/14/23 02:45 Urine Protein 1+ (Negative) H 06/14/23 02:45 Urine Glucose (UA) Norm (Normal) 06/14/23 02:45 Urine Ketones 1+ (Negative) H 06/14/23 02:45 Urine Blood Neg (Negative) 06/14/23 02:45 Urine Nitrate Negative (Negative) 06/14/23 02:45 Urine Bilirubin 1+ (Negative) H 06/14/23 02:45 Prot Sulfosalicylic Acd Shook Machine Operator 06/14/23 02:45 Urine Urobilinogen 1 mg/dL (Negative) H 06/14/23 02:45 Ur Leukocyte Esterase Negative (Negative) 06/14/23 02:45 Urine RBC None /hpf (0-2) 06/14/23 02:45 Urine WBC 0-4 /hpf (0-5) H 06/14/23 02:45 Ur Squamous Epith Cells 10-15 /hpf (0-5) H 06/14/23 02:45 Ur Transition Epith Cell Shook Machine Operator 06/14/23 02:45 Ur Renal Epithelial Cell Shook Machine Operator 06/14/23 02:45 Calcium Oxalate Crystal 5-10 /hpf H 06/14/23 02:45 Uric Acid Crystals Shook Machine Operator 06/14/23 02:45 Triple Phos Crystals Shook Machine Operator 06/14/23 02:45 Other Crystals Shook Machine Operator 06/14/23 02:45 Amorphous Sediment Shook Machine Operator 06/14/23 02:45 Urine Bacteria 1+ /hpf (NONE) H 06/14/23 02:45 Hyaline Casts 0-4 /lpf H 06/14/23 02:45 Fine Granular Casts Shook Machine Operator 06/14/23 02:45 Coarse Granular Casts Shook Machine Operator 06/14/23 02:45 RBC Casts Shook Machine Operator 06/14/23 02:45 Other Casts Shook Machine Operator 06/14/23 02:45 Urine Mucus 2+ /hpf 06/14/23 02:45 Urine Trichomonas Shook Machine Operator 06/14/23 02:45 Urine Yeast Shook Machine Operator 06/14/23 02:45 Urine Sperm Shook Machine Operator 06/14/23 02:45 Ur Oval Fat Bodies Shook Machine Operator 06/14/23 02:45 EKG Data EKG 1: I personally reviewed and interpreted this EKG as follows: EKG interpretation date: 06/14/23 EKG interpretation time: 02:36 Prior EKG tracings: not available for review Interpretation: EKG showed ventricular rate 78 bpm, SC interval 150, QRS duration 88, QTc of 383, sinus rhythm with occasional PVCs, no ST-T wave changes Discharge Plan Discharge Patient Disposition: Home Clinical Impression: Vasovagal syncope Condition: Stable Prescriptions: No Action sumatriptan succinate [Imitrex] 100 mg tablet See Rx Instructions PO .COMPLEX Qty: 90 3RF Rx Instructions: take 1 tab at onset of headache; if no relief, may repeat 1 tab after at least 2 hrs; max = 2 tabs/24 hrs PO furosemide 40 mg tablet 40 mg PO DAILY potassium chloride 10 mEq capsule, extended release 10 meq PO DAILY sertraline [Zoloft] 100 mg tablet 100 mg PO .morning Qty: 30 3RF Rx Instructions: Take one tablet every morning quetiapine [Seroquel] 100 mg tablet 100 mg PO BEDTIME Qty: 30 3RF Rx Instructions: Take one tablet at bedtime pantoprazole 40 mg tablet,delayed release (DR/EC) 40 mg PO DAILY@08 Qty: 90 0RF carvedilol 25 mg tablet 25 mg PO BID Qty: 180 3RF Aimovig Autoinjector 140 mg/mL auto-injector See Rx Instructions .ROUTE .COMPLEX Qty: 1 5RF Dose Instruction: INJECT ONE PEN SUBCUTANEOUSLY ONCE PER MONTH FOR MIGRAINES Rx Instructions: INJECT ONE PEN SUBCUTANEOUSLY ONCE PER MONTH FOR MIGRAINES - ON THE 3RD OF EACH MONTH cyclobenzaprine 10 mg tablet 10 mg PO DAILY meloxicam 15 mg tablet 15 mg PO DAILY inulin-sorbitol 2 gram Tablet,Chewable 3 tab PO DAILY Constulose 10 gram/15 mL solution 10 g PO DAILY PRN (Reason: laxative effect) Qty: 473 0RF acyclovir 800 mg tablet 800 mg PO TID PRN (Reason: BREAKOUTS) pregabalin 100 mg capsule 100 mg PO Q12H tramadol 50 mg tablet 50 mg PO TID PRN (Reason: pain) Qty: 20 0RF Discharge Orders: Discharge ED (Routine); Ordered 06/14/23 Ordered By: Ruben Russo Referrals: Roseanne Marin PA [Primary Care Provider] - 1 week Patient Instructions: Syncope (ED) Activity Restrictions/Additional Instructions: Please push plenty of clear fluids. Please follow-up with your family practice doctor in approximately 7 days or sooner as needed. If your symptoms return please feel free to return to the ER for further evaluation. Coding Level of Care Code ED Clinical Case Manager for 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
[2023-06-14 02:32] LABS: Basophils % 0.4 %; Eosinophils # 0.1 10^3/uL (0.0-0.8); Eosinophils % 1.4 %; Hematocrit 44.3 % (36-47); Lymphocytes # 1.9 10^3/uL (0.8-4.8); Lymphocytes % 20.2 %; Mean Corpuscular HGB Conc 33.6 g/dL (30-55); Mean Corpuscular Hemoglobin 28.2 pg (27-33); Mean Corpuscular Volume 83.7 fl (85-98); Mean Platelet Volume 11.1 fL (7.4-10.4); Monocytes # 0.5 10^3/uL (0.2-0.9); Neutrophils # 6.68 10^3/uL (1.8-7.7); Neutrophils % 72.8 %; Nucleated Red Blood Cells % 0 %; Platelet Count 236 10^3/cmm (157-399); Red Blood Count 5.29 10^6/uL (3.85-5.65); White Blood Count 9.19 10^3/uL (3.29-11.43)
[2023-06-14 02:47] VITALS: BP 123/73; PULSE 81; RESP 20; O2SAT 96
[2023-06-14 02:53] LABS: Alanine Aminotransferase 15 U/L (0-33); Albumin Level 4.7 g/dL (3.5-5.2); Alkaline Phosphatase 79 U/L (35-105); Anion Gap 15.4 (5-19); Aspartate Amino Transferase 14 U/L (0-32); Blood Urea Nitrogen 31 mg/dL (6-20); Calcium 9.8 mg/dL (8.5-10.5); Carbon Dioxide 22 mmol/L (22-29); Chloride 106 mmol/L (98-107); Globulin 2.7 g/dL (1.3-4.6); Glomerular Filtration Rate 42.4 mL/min (90-130); Glucose 141 mg/dL (65-115); Magnesium 2.2 mg/dL (1.7-2.3); Osmolality Calculated 297 mOsm/kg (285-295); Potassium 4.4 mmol/L (3.5-5.1); Sodium 139 mmol/L (136-145); Total Bilirubin 0.4 mg/dL (0.15-1.2); Total Protein 7.4 g/dL (6.6-8.7)
[2023-06-14 03:06] LABS: Add Urine Culture? No; Add Urine Microscopic? YES; Bacteria Urine 1+ /hpf; Bilirubin Urine 1+ (Negative); Blood Urine Neg (Negative); Glucose Urine UA Norm (Normal); Hyaline Casts Urine 0-4 /lpf; Ketones Urine 1+ (Negative); Leukocyte Esterase Urine Negative (Negative); Mucus Urine 2+ /hpf; Nitrate Urine Negative (Negative); Protein Urine 1+ (Negative); Urine Appearance Cloudy (CLEAR); Urine Color Yellow (Yellow); Urobilinogen Urine 1 mg/dL (Negative); WBC Urine 0-4 /hpf (0-5); pH Urine 5 (5-7)
[2023-06-14 03:08] VITALS: BP 125/74; PULSE 98; RESP 20; O2SAT 99
[2023-06-14] MEDS: cyclobenzaprine 10 mg Tablet PO (03:26)
[2023-06-14] MEDS: ondansetron 2 mg/ML SDV 2 mL 4 MG IVP (03:26)
[2023-06-14 03:32] LABS: Prolactin 15.65 ng/mL (4.8-23.3)
[2023-06-14 03:56] VITALS: BP 128/60; PULSE 78; RESP 16; O2SAT 97
== END 2023-06-14 03:58 | disposition home or self-care (01) ==
PROVIDERS: Emergency Provider Emergency Medicine; PCP Physician Assistant
DX: R55 Syncope and collapse (principal); I10 Essential (primary) hypertension; Z85.3 Personal history of malignant neoplasm of breast; R19.7 Diarrhea, unspecified; E86.0 Dehydration; R25.2 Cramp and spasm; K58.1 Irritable bowel syndrome with constipation
CPT/HCPCS: 36415; 74018; 74176; 80053; 81001; 81003; 82274; 83630; 83690; 83735; 84146; 85025; 85651; 86140; 87493; 87506; 93005; 96361; 96365; 96366; 96374; 96375; 99284; 99285; G0378; J2405; J7030

== ENCOUNTER 2023-06-14 10:47 | Observation (INO) | payer MEDICARE, MEDICAID, SELFPAY ==
[2023-06-14 11:14] LABS: Basophils % 0.5 %; Eosinophils # 0.1 10^3/uL (0.0-0.8); Eosinophils % 0.7 %; Hematocrit 47.1 % (36-47); Lymphocytes # 2.1 10^3/uL (0.8-4.8); Lymphocytes % 26.5 %; Mean Corpuscular HGB Conc 32.5 g/dL (30-55); Mean Corpuscular Hemoglobin 27.8 pg (27-33); Mean Corpuscular Volume 85.6 fl (85-98); Mean Platelet Volume 10.9 fL (7.4-10.4); Monocytes # 0.5 10^3/uL (0.2-0.9); Neutrophils # 5.31 10^3/uL (1.8-7.7); Neutrophils % 65.9 %; Nucleated Red Blood Cells % 0 %; Platelet Count 232 10^3/cmm (157-399); Red Cell Distribution Width 14.1 % (12.1-15.1); White Blood Count 8.05 10^3/uL (3.29-11.43)
[2023-06-14 11:15] VITALS: BP 176/91; PULSE 83; RESP 18; TEMP 36.7; O2SAT 100; BMI 31.1
--- NOTE | 2023-06-14 11:20 | ED_ITS ---
HPI - Abdominal Pain General: Chief Complaint: Abdominal Pain Stated Complaint: n/v , leg cramps, Time Seen by Provider: 06/14/23 11:11 History of Present Illness: 57-year-old female presents emergency room complaining of episodes of diarrhea and a syncopal episode that she had this morning. She had gotten up was not feeling well meant to go to the restroom she had a syncopal episode in route woke up in the restroom on the floor she had a bowel movement large amount of liquid stool she cleaned up head couple other more bowel movements some cramping in her legs. She never had any hematochezia or melena. She came into the emergency room early this morning was seen and evaluated and discharged home after receiving fluids. She returns now stating she does not feel any better. She was using some antiemetics for the nausea. No fever no dysuria urgency or frequency denies shortness of breath or chest pain. PFS ED 2 PFSH: Medical History (Updated 06/14/23 @ 17:10 by Moy Galvan DO) Benign essential HTN Borderline personality disorder Breast cancer Chronic migraine without aura, intractable, with status migrainosus DCIS (ductal carcinoma in situ) ER/AZ negative, tamoxifen Depression with anxiety Fear of insects (Unknown) Specifically tics Functional neurological symptom disorder with attacks or seizures Dr. Chepe Pickering-- Neurology [facility] Herpes genitalia History of cardiac arrest History of colon polyps History of electroencephalogram 05/2023 IMPRESSION: This was a normal routine EEG, awake and drowsy and asleep, with no behavioral or electrographic epileptiform activity. A normal EEG does not exclude a diagnosis of epilepsy. History of Holter monitoring 04/2023 Baseline rhythm is sinus rhythm. HR ranged from 56-135, avg 80 bpm, nnspecified patient symptom correlated with isolated PVC History of malignant melanoma Hot flashes HTN (hypertension) with goal to be determined Inappropriate sinus tachycardia Irritable bowel disease Lumbar radiculitis Major depressive disorder, recurrent, severe with psychotic symptoms [facility] [place] managing Malignant hypertension Psychiatric care Recurrent syncope Small bowel obstruction Surgical History (Updated 06/14/23 @ 17:07 by Cathryn Avila MD) H/O tubal ligation (~2008) History of appendectomy (01/2021) History of augmentation of both breasts (~2012) SILICONE IMPLANTS History of colonoscopy History of exploratory laparotomy (01/2021) with lysis of adhesions, performed due to SBO Hx of abdominoplasty (~2009) Hx of bilateral mastectomy Hx of section (~2008) x 1 Hx of decompressive lumbar laminectomy ---2014 L5-S1 [place], [place]. ---10/20/2020 Revision; Dr Dalia ALBERT Hx of hernia repair (~2012) ventral (patient thinks mesh was used) Hx of hysterectomy (~2008) CHRISTINA-- ovaries spared. Intra-abdominal adhesions (~10/2020) adhesiolysis / incidental appendectomy-- at same time as bowel obstruction Family History Mother Breast cancer dx age unknown Hypertension Grandmother Breast cancer Maternal--dx age 60's Hypertension Maternal and Paternal Sister No problems noted. Daughter Uterine cancer dx age 28 Father Diabetes Hypertension Stroke Grandfather Hypertension maternal and Paternal Denies family history of Colon cancer Ovarian cancer Social History Smoking and tobacco status: never smoked Alcohol intake: current Alcohol intake frequency: holidays/special occasions only Alcohol type: wine Substance/Drug Use: never Do you think of yourself as: Straight/Heterosexual Course Vital Signs: Vital signs: Vital Signs Temperature 98.1 F 06/14/23 11:15 Pulse Rate 71 06/14/23 14:06 Respiratory Rate 17 06/14/23 14:06 Blood Pressure 161/90 06/14/23 14:06 Pulse Oximetry 97 06/14/23 14:06 Oxygen Delivery Me thod Room Air 06/14/23 11:15 MDM - Abdominal Pain Medical Decision Making Syncope and mild acute kidney injury. Possible underlying inflammatory bowel disease. IV fluids we will admit discussed with hospitalist orders written. Medical Records I reviewed the patient's medical records. Lab Data I reviewed the patient's lab results. 06/14/23 11:10 06/14/23 11:10 Labs/Radiology: Radiology Impressions KUB X-Ray 06/14/23 11:21 IMPRESSION: Dilated air-filled loops of small bowel in the central abdomen. Early or partial small bowel obstruction not excluded Laboratory Results WBC 8.05 10^3/uL (3.29-11.43) 06/14/23 11:10 RBC 5.50 10^6/uL (3.85-5.65) 06/14/23 11:10 Hgb 15.30 g/dL (11.27-16.99) 06/14/23 11:10 Hct 47.1 % (36-47) H 06/14/23 11:10 MCV 85.6 fl (85-98) 06/14/23 11:10 MCH 27.8 pg (27-33) 06/14/23 11:10 MCHC 32.5 g/dL (30-55) 06/14/23 11:10 RDW 14.1 % (12.1-15.1) 06/14/23 11:10 Plt Count 232 10^3/cmm (157-399) 06/14/23 11:10 MPV 10.9 fL (7.4-10.4) H 06/14/23 11:10 Neut % (Auto) 65.9 % 06/14/23 11:10 Lymph % (Auto) 26.5 % 06/14/23 11:10 [place] % (Auto) 6.0 % 06/14/23 11:10 Eos % (Auto) 0.7 % 06/14/23 11:10 Baso % (Auto) 0.5 % 06/14/23 11:10 Neut # (Auto) 5.31 10^3/uL (1.8-7.7) 06/14/23 11:10 Lymph # (Auto) 2.1 10^3/uL (0.8-4.8) 06/14/23 11:10 [place] # (Auto) 0.5 10^3/uL (0.2-0.9) 06/14/23 11:10 Eos # (Auto) 0.1 10^3/uL (0.0-0.8) 06/14/23 11:10 Baso # (Auto) 0.0 10^3/uL (0.0-0.1) 06/14/23 11:10 Nucleated RBC % (auto) 0 % 06/14/23 11:10 Nucleated RBCs # 0.0 /100WBC 06/14/23 11:10 Sodium 139 mmol/L (136-145) 06/14/23 11:10 Potassium 4.7 mmol/L (3.5-5.1) 06/14/23 11:10 Chloride 105 mmol/L (98-107) 06/14/23 11:10 Carbon Dioxide 24 mmol/L (22-29) 06/14/23 11:10 Anion Gap 14.7 (5-19) 06/14/23 11:10 BUN 34 mg/dL (6-20) H 06/14/23 11:10 Creatinine 1.4 mg/dL (0.5-0.9) H 06/14/23 11:10 GFR Calculation 38.9 mL/min (90-130) L 06/14/23 11:10 Glucose 107 mg/dL (65-115) 06/14/23 11:10 Calculated Osmolality 296 mOsm/kg (285-295) H 06/14/23 11:10 Calcium 9.7 mg/dL (8.5-10.5) 06/14/23 11:10 Magnesium 2.3 mg/dL (1.7-2.3) 06/14/23 11:10 Total Bilirubin 0.6 mg/dL (0.15-1.2) 06/14/23 11:10 AST 13 U/L (0-32) 06/14/23 11:10 ALT 15 U/L (0-33) 06/14/23 11:10 Alkaline Phosphatase 83 U/L (35-105) 06/14/23 11:10 Total Protein 7.5 g/dL (6.6-8.7) 06/14/23 11:10 Albumin 4.8 g/dL (3.5-5.2) 06/14/23 11:10 Globulin 2.7 g/dL (1.3-4.6) 06/14/23 11:10 Lipase 27 U/L (13-60) 06/14/23 11:10 Discharge Plan Discharge Patient Disposition: Placed in Observation Admit Provider: Cathryn Avila Clinical Impression: Syncope, Diarrhea, Dehydration, Acute kidney injury Condition: Stable Coding Level of Care Code ED Garbage Person for 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
--- NOTE | 2023-06-14 11:21 | XRR_ITS ---
PROCEDURE INFORMATION: Exam: XR Abdomen Exam date and time: 06/14/2023 11:29 AM Age: 57 years old Clinical indication: Constipation; Prior surgery; Surgery date: 6+ months; Surgery type: Breast, hernia; Patient HX: HX of breast cancer; Additional info: Constipated TECHNIQUE: Imaging protocol: Radiologic exam of the abdomen. Views: Frontal supine view of the abdomen. 1 View. COMPARISON: CT abdomen pelvis w con* [id number] 05/29/2023 4:46 PM FINDINGS: Gastrointestinal tract: Dilated air-filled loops of small bowel in the central abdomen. Early or partial small bowel obstruction not excluded Bones/joints: Unremarkable. XR/XR KUB portable [id number] IMPRESSION: Dilated air-filled loops of small bowel in the central abdomen. Early or partial small bowel obstruction not excluded
[2023-06-14 11:39] LABS: Alanine Aminotransferase 15 U/L (0-33); Albumin Level 4.8 g/dL (3.5-5.2); Alkaline Phosphatase 83 U/L (35-105); Anion Gap 14.7 (5-19); Aspartate Amino Transferase 13 U/L (0-32); Blood Urea Nitrogen 34 mg/dL (6-20); Calcium 9.7 mg/dL (8.5-10.5); Carbon Dioxide 24 mmol/L (22-29); Chloride 105 mmol/L (98-107); Globulin 2.7 g/dL (1.3-4.6); Glomerular Filtration Rate 38.9 mL/min (90-130); Glucose 107 mg/dL (65-115); Lipase 27 U/L (13-60); Osmolality Calculated 296 mOsm/kg (285-295); Potassium 4.7 mmol/L (3.5-5.1); Sodium 139 mmol/L (136-145); Total Bilirubin 0.6 mg/dL (0.15-1.2); Total Protein 7.5 g/dL (6.6-8.7)
[2023-06-14 11:40] LABS: Magnesium 2.3 mg/dL (1.7-2.3)
[2023-06-14 11:41] VITALS: BP 176/91; PULSE 74; RESP 17; O2SAT 97
[2023-06-14] MEDS: ondansetron 2 mg/ML SDV 2 mL 4 MG IVP (11:57)
[2023-06-14] MEDS: sodium chloride 0.9% 1,000 ML 999 ML IV (11:58)
--- NOTE | 2023-06-14 12:02 | CT_ITS ---
WS: [id number] CT ABDOMEN PELVIS TECHNIQUE: Noncontrast CT of the abdomen and pelvis with coronal and sagittal reformatted images. CLINICAL INFORMATION: Abdominal pain COMPARISON: CT 05/29/2023 DLP: 721.[address] scans at [facility] use at least one of these dose optimization techniques: automated e xposure control; mA and/or kV adjustment per patient size (includes targeted exams where dose is matc hed to clinical indication); or iterative reconstruction. FINDINGS: Prior cholecystectomy and hysterectomy. Diffuse distention of the stomach with air-fluid levels. Norm al sigmoid colon. Colon is decompressed. Tiny fat-containing umbilical hernia. Small supraumbilical h ernia. No herniated bowel. Lung bases are well aerated. Normal noncontrast liver and spleen. Prior ch olecystectomy. Normal caliber abdominal aorta. Aortic calcification. Adrenal glands are normal. No hy dronephrosis in either kidney. Noncontrast pancreas is normal. No abdominal or pelvic lymphadenopathy. Diffuse transmural thickening involving the distal small bowel with prominent submucosal fat. Findings can be seen with inflammato ry bowel disease. A few air-fluid levels. Small bowel involvement extends from the distal ileum into the mid small bowel. Proximal jejunum has a more normal appearance. Findings are similar to the prior examinations in particular 08/02/2021. Trace free fluid in the cul-de-sac. Disc space narrowing worse at L5-S1. Slight sclerosis with cystic changes in the femoral heads bilaterally. IMPRESSION: 1. Diffuse transmural small bowel thickening involving the mid and distal small bowel extending to t he terminal ileum with prominent submucosal fat. Findings suspicious for inflammatory bowel disease. Mild induration about the terminal ileum. 2. Mild distention of the small bowel with air-fluid levels. No transition point. Colon is normal ca liber. 3. Normal sigmoid colon. 4. Fluid distended stomach with air-fluid levels. Proximal jejunum has a more normal appearance. 5. No hydronephrosis in either kidney. 6. No other acute findings. 7. Prior cholecystectomy and hysterectomy. Notified Moy Galvan DO at 06/14/2023 1:08 PM.
--- NOTE | 2023-06-14 13:12 | PC.PHAR ---
pt states she takes care of her own medications-pt states she no longer takes zoloft 100mg bid rx filled 04/25/23 30d/s pt states not taken in a month-
[2023-06-14 14:06] VITALS: BP 161/90; PULSE 71; RESP 17; O2SAT 97
[2023-06-14] MEDS: D5-NS 0.45% + KCL 20 mEq 20 MEQ/1,000 ML BAG 150 MEQ IV ×2 (16:28→22:52)
--- NOTE | 2023-06-14 16:48 | PM.HP ---
Providers/Chief Complaint Admitting Physician: Cathryn Avila MD Primary Care Provider: Roseanne Marin Chief Complaint: diarrhea, leg cramps History of Present Illness Anne Payne is a 57 year old female who presented to the emergency room with a chief complaint of ongoing diarrhea and bilateral leg cramps. She has been having loose stools and cramping abdominal discomfort for several days. She has a history of small bowel obstructions and irritable bowel syndrome dating back quite a few years. Most recent hospitalization with GI complaints was in April of this year. She had a partial small bowel obstruction presenting predominantly with nausea and vomiting. She was treated with conservative measures including NG tube decompression and a bowel regimen. At discharge she had been prescribed lactulose to take as needed for constipation. She was subsequently instructed to use daily MiraLAX, daily fiber pill and daily stool softener. She had been taking this regimen regularly until her loose stools started. On Tuesday 2 days prior to admission she was having an increased frequency of loose stools with crampy abdominal pain to the point that she almost did not go visit family. She ended up making the trip and her GI symptoms seem to do okay but she began having cramping pain in her right lower extremity at the time. She has had some nausea but no vomiting. She has experienced a few deep belches with an acidic taste in the back of her mouth. Last night she got up to go to the bathroom. She had some diarrhea in the toilet, stood up to get off of the toilet and had an episode of syncope with loss of consciousness. She was alone so does not know how long she was out. When she came to she was between the toilet and the wall. She had evidently had a very large volume liquid stool after passing out and she and the floor were covered. She cleaned herself up and presented to the emergency room around 2 AM. Vital signs are stable. Laboratory studies were done revealing an increased BUN and creatinine from prior values. She was given some IV fluids. Clinically felt to have had vasovagal syncopal episode. Around midday she presented again to the emergency room with continued loose stools and generally not feeling well. She was having severe leg cramps of both lower extremities below the calf. She continued to have some lower abdominal discomfort predominantly crampy in nature. No fever. Repeat laboratory studies in the emergency room showed continued elevation in BUN and creatinine from her baseline. KUB showed dilated air-filled loops of small bowel. A subsequent CT of the abdomen and pelvis showed diffuse transmural small bowel thickening with findings suspicious for inflammatory bowel disease. Mild distention of the small bowel with air-fluid levels was noted but no transition point. Colon was noted to be normal in caliber. Stomach described as fluid distended with air-fluid levels. Hospitalist were contacted for admission. After arrival to the emergency room today she had some chills but no temperature was noted with vital sign checks. She has been trying to lose weight in anticipation of yet another reconstructive breast surgery at the end of this month on July 08. She has lost some pounds with this effort. At no point has she noted any blood in her stools. Stools have been liquid brown. In talking with her her last colonoscopy was in 2017. At that time she was found to have a hyperplastic polyp. In 2020 she had small bowel follow-through that showed insignificant findings with normal-appearing mucosal pattern of the duodenum, jejunum and ileum described. In January 2021 she had a small bowel obstruction leading to exploratory laparotomy with lysis of adhesions and incidental appendectomy. She has had several CT scans of the abdomen and pelvis over the years describing mural and submucosal thickening in mid to distal small bowel loops suggesting inflammatory bowel disease. She carries a diagnosis of irritable bowel disease and has had issues with constipation related to pain medication use in postoperative scenarios. Prior to the onset of her loose stools she was having regular bowel movements for her which she described as not firm poop. After her loose stool started she held the stool softener regimen. She has had decreased oral intake today due to her symptoms as anytime she tried to take something by mouth she would experience diarrhea a short time later. Presently she feels some better. She has had 2 episodes of a small amount of diarrhea since arrival to the floor. Still some crampy pain in her lower abdomen. Not currently having leg cramps. She did take a Flexeril to see if it would help with the leg cramps at home without much improvement. Review of Systems General: Reports: Other (ROS as per HPI or as otherwise noted here) Const: Reports: fatigue Card: Denies: chest pain Resp: Denies: dyspnea : Denies: flank pain or difficulty voiding Medications/Allergies Home Medications Medication Instructions Recorded Confirmed Last Taken Type acyclovir 800 mg tablet 800 mg PO TID PRN BREAKOUTS 09/02/22 06/14/23 Unknown History pregabalin 100 mg capsule 100 mg PO Q12H 09/02/22 06/14/23 06/14/23 History sumatriptan succinate 100 mg See Rx Instructions PO .COMPLEX 10/26/22 06/14/23 Unknown Rx tablet (Imitrex) #90 tabs carvedilol 25 mg tablet 25 mg PO BID #180 tabs 02/02/23 06/14/23 06/14/23 06:30 Rx erenumab-aooe 140 mg/mL See Rx Instructions .Route 02/15/23 06/14/23 04/11/23 Rx subcutaneous auto-injector .COMPLEX #1 mL (Aimovig Autoinjector) potassium chloride 10 mEq 10 meq PO QAM 03/16/23 06/14/23 06/14/23 History capsule,extended release cyclobenzaprine 10 mg tablet 10 mg PO DAILY PRN Muscle Spasm 04/16/23 06/14/23 06/14/23 History meloxicam 15 mg tablet 15 mg PO QAM 04/16/23 06/14/23 06/14/23 History lactulose 10 gram/15 mL oral 10 g (15 mL) PO DAILY PRN laxative 04/19/23 06/14/23 Unknown Rx solution (Constulose) effect #473 mL quetiapine 100 mg tablet (Seroquel) 100 mg PO BEDTIME #30 tabs 06/09/23 06/14/23 06/13/23 Rx furosemide 20 mg tablet 20 mg PO QAM 06/14/23 06/14/23 06/14/23 History pantoprazole 40 mg tablet,delayed 40 mg PO QAM 06/14/23 06/14/23 06/14/23 History release psyllium husk 0.4 gram capsule 1.2 g PO DAILY 06/14/23 06/14/23 06/14/23 History (Fiber (psyllium husk)) trazodone 100 mg tablet 100 - 200 mg PO BEDTIME PRN Sleep 06/14/23 06/14/23 Unknown History Allergies Allergy/AdvReac Type Severity Reaction Status Date / Time dexchlorpheniramine Allergy ADR-Faintin Verified 06/14/23 19:35 [From Rymed g (dexchlorpheniramine-PE)] phenylephrine Allergy ADR-Faintin Verified 06/14/23 19:35 [From Rymed g (dexchlorpheniramine-PE)] risperidone [From Risperdal] Allergy Unknown Verified 06/14/23 13:02 Sulfa (Sulfonamide Allergy ALGY-Hives Verified 06/14/23 13:02 Antibiotics) PFSH Acute PFSH: Medical History (Updated 06/14/23 @ 21:09 by Cathryn Avila MD) Benign essential HTN Borderline personality disorder Breast cancer Chronic migraine without aura, intractable, with status migrainosus DCIS (ductal carcinoma in situ) ER/RI negative, tamoxifen Depression with anxiety Fear of insects (Unknown) Specifically tics Functional neurological symptom disorder with attacks or seizures Dr. Chepe Pickering-- Neurology [facility] Herpes genitalia History of cardiac arrest History of colon polyps History of electroencephalogram 05/2023 IMPRESSION: This was a normal routine EEG, awake and drowsy and asleep, with no behavioral or electrographic epileptiform activity. A normal EEG does not exclude a diagnosis of epilepsy. History of Holter monitoring 04/2023 Baseline rhythm is sinus rhythm. HR ranged from 56-135, avg 80 bpm, nnspecified patient symptom correlated with isolated PVC History of malignant melanoma Hot flashes HTN (hypertension) with goal to be determined Inappropriate sinus tachycardia Irritable bowel disease Lumbar radiculitis Major depressive disorder, recurrent, severe with psychotic symptoms [facility] managing Malignant hypertension Psychiatric care Recurrent syncope Small bowel obstruction Surgical History (Updated 06/14/23 @ 19:42 by Cathryn Avila MD) H/O tubal ligation (~2008) History of appendectomy (01/2021) History of augmentation of both breasts 2012 silicone implants, removed at time of mastectomies History of colonoscopy History of exploratory laparotomy (01/2021) with lysis of adhesions, performed due to SBO Hx of abdominoplasty (~2009) Hx of bilateral mastectomy Hx of section (~2008) x 1 Hx of decompressive lumbar laminectomy ---2014 L5-S1 [facility] IN [place], [place] ---10/20/2020 Revision; Dr Dalia ALBERT Hx of hernia repair (~2012) ventral (patient thinks mesh was used) Hx of hysterectomy (~2008) CHRISTINA-- ovaries spared. Intra-abdominal adhesions (~10/2020) adhesiolysis / incidental appendectomy-- at same time as bowel obstruction Family History Mother Breast cancer dx age unknown Hypertension Grandmother Breast cancer Maternal--dx age 60's Hypertension Maternal and Paternal Sister No problems noted. Daughter Uterine cancer dx age 28 Father Diabetes Hypertension Stroke Grandfather Hypertension maternal and Paternal Denies family history of Colon cancer Ovarian cancer Social History Smoking and tobacco status: never smoked Alcohol intake: current Alcohol intake frequency: holidays/special occasions only Alcohol type: wine Substance/Drug Use: never Do you think of yourself as: Straight/Heterosexual Vitals/I&O/Wt Last Vital Signs Temp 98.1 F 06/14/23 11:15 Pulse 71 06/14/23 14:06 Resp 17 06/14/23 14:06 BP 161/90 06/14/23 14:06 Pulse Ox 97 06/14/23 14:06 O2 Del Method Room Air 06/14/23 11:15 Weight last 48 hrs Weight 77.111 kg Physical Exam Narrative: Patient is awake and alert, able to provide history. Normocephalic. Extraocular movements are intact. Oropharynx with dry mucous membranes. Neck is supple. Lungs are clear. Regular rhythm. Abdomen is soft. Mild tenderness in both lower quadrants without any rebound or guarding noted. No epigastric or upper quadrant tenderness. No flank pain. Positive bowel sounds. No pitting edema in the lower extremities. No calf tenderness. Brisk capillary refill x4. Skin is dry. Speech clear, face symmetric, moves all extremities. Data 06/14/23 11:10 06/14/23 11:10 Other Labs: Radiology Impressions KUB X-Ray 06/14/23 11:21 IMPRESSION: Dilated air-filled loops of small bowel in the central abdomen. Early or partial small bowel obstruction not excluded CT Abd/Pelvis IMPRESSION: 1.? Diffuse transmural small bowel thickening involving the mid and distal small bowel extending to the terminal ileum with prominent submucosal fat. Findings suspicious for inflammatory bowel disease. Mild induration about the terminal ileum. 2.? Mild distention of the small bowel with air-fluid levels. No transition point. Colon is normal caliber. 3.? Normal sigmoid colon. 4.? Fluid distended stomach with air-fluid levels. Proximal jejunum has a more normal appearance. 5.? No hydronephrosis in either kidney. 6.? No other acute findings. 7.? Prior cholecystectomy and hysterectomy. Laboratory Results WBC 8.05 10^3/uL (3.29-11.43) 06/14/23 11:10 RBC 5.50 10^6/uL (3.85-5.65) 06/14/23 11:10 Hgb 15.30 g/dL (11.27-16.99) 06/14/23 11:10 Hct 47.1 % (36-47) H 06/14/23 11:10 MCV 85.6 fl (85-98) 06/14/23 11:10 MCH 27.8 pg (27-33) 06/14/23 11:10 MCHC 32.5 g/dL (30-55) 06/14/23 11:10 RDW 14.1 % (12.1-15.1) 06/14/23 11:10 Plt Count 232 10^3/cmm (157-399) 06/14/23 11:10 MPV 10.9 fL (7.4-10.4) H 06/14/23 11:10 Neut % (Auto) 65.9 % 06/14/23 11:10 Lymph % (Auto) 26.5 % 06/14/23 11:10 Chester % (Auto) 6.0 % 06/14/23 11:10 Eos % (Auto) 0.7 % 06/14/23 11:10 Baso % (Auto) 0.5 % 06/14/23 11:10 Neut # (Auto) 5.31 10^3/uL (1.8-7.7) 06/14/23 11:10 Lymph # (Auto) 2.1 10^3/uL (0.8-4.8) 06/14/23 11:10 Chester # (Auto) 0.5 10^3/uL (0.2-0.9) 06/14/23 11:10 Eos # (Auto) 0.1 10^3/uL (0.0-0.8) 06/14/23 11:10 Baso # (Auto) 0.0 10^3/uL (0.0-0.1) 06/14/23 11:10 Nucleated RBC % (auto) 0 % 06/14/23 11:10 Nucleated RBCs # 0.0 /100WBC 06/14/23 11:10 Sodium 139 mmol/L (136-145) 06/14/23 11:10 Potassium 4.7 mmol/L (3.5-5.1) 06/14/23 11:10 Chloride 105 mmol/L (98-107) 06/14/23 11:10 Carbon Dioxide 24 mmol/L (22-29) 06/14/23 11:10 Anion Gap 14.7 (5-19) 06/14/23 11:10 BUN 34 mg/dL (6-20) H 06/14/23 11:10 Creatinine 1.4 mg/dL (0.5-0.9) H 06/14/23 11:10 GFR Calculation 38.9 mL/min (90-130) L 06/14/23 11:10 Glucose 107 mg/dL (65-115) 06/14/23 11:10 Calculated Osmolality 296 mOsm/kg (285-295) H 06/14/23 11:10 Calcium 9.7 mg/dL (8.5-10.5) 06/14/23 11:10 Magnesium 2.3 mg/dL (1.7-2.3) 06/14/23 11:10 Total Bilirubin 0.6 mg/dL (0.15-1.2) 06/14/23 11:10 AST 13 U/L (0-32) 06/14/23 11:10 ALT 15 U/L (0-33) 06/14/23 11:10 Alkaline Phosphatase 83 U/L (35-105) 06/14/23 11:10 Total Protein 7.5 g/dL (6.6-8.7) 06/14/23 11:10 Albumin 4.8 g/dL (3.5-5.2) 06/14/23 11:10 Globulin 2.7 g/dL (1.3-4.6) 06/14/23 11:10 Lipase 27 U/L (13-60) 06/14/23 11:10 A&P Assessment and plan (1) Diarrhea: In a patient historically with issues related to constipation from IBS diagnosis and intermittently from impact of narcotic pain medications prescribed postsurgically. She also has a history of small bowel obstructions with most recent being in April of this year when her bowel regimen was adjusted to include fiber, MiraLAX and an vuyx-ded-sldqsea stool softener regularly. Clinically this sounds like her irritable bowel syndrome along with a more regular bowel regimen but she does have abnormalities noted on CT imaging suggesting an inflammatory bowel process. Similar findings have been noted previously dating back quite a few years including prior to colonoscopy and small bowel follow-through studies that did not reveal any confirmatory findings. She has not had reports of fever. She has lost some weight but has been trying to lose weight. No other recent new complaints that might suggest other manifestations of inflammatory bowel disease noted at this time. No current indication of obstruction. Gastroenteritis is within the differential but given the change in bowel regimen and her history leaning towards medication effect in the setting of IBD at this time. (2) Dehydration: Mild to moderate dehydration with increase in BUN and creatinine from baseline. Cannot currently completely rule out acute kidney injury related to ATN from hypotension with vasovagal episode along with potential impact of medications including meloxicam and Lasix. (3) Syncope: Vasovagal syncope occurring at the time of a bowel movement preceded ER visit earlier today, no recurrence but has not felt well since then (4) Bilateral leg cramps: Most likely related to electrolyte disturbances/dehydration. Not intractable. (5) Irritable bowel disease: Chronic diagnoses typically associated with constipation. As discussed above, she has CT findings suggesting potential for inflammatory bowel disease though colonoscopy nor small bowel follow-through studies in 2018 found confirmatory evidence. Qualifiers: Irritable bowel syndrome type: with constipation Qualified Code(s): K58.1 - Irritable bowel syndrome with constipation (6) Hypertension: Primary hypertension, chronically on carvedilol and Lasix plus potassium Plan Chronic migraines on erenumab-aooe AOE and as needed sumatriptan Gastroesophageal reflux disease on PPI Chronic back pain on Lyrica and meloxicam Chronically on quetiapine and trazodone as needed History of breast cancer status post bilateral mastectomy with subsequent acquired breast deformity due for another attempt at surgical reconstruction at the end of this month in [place] Observation admission Continue IV fluids Replace electrolytes as needed We will hold home Lasix and potassium along with meloxicam secondary to renal function Recheck laboratory studies including magnesium and phosphorus Stool studies including Hemoccult, lactoferrin, c diff and enteric bacterial panel Check Sed rate and CRP Urinalysis Pending results of above will determine next steps May benefit from repeat endoscopy and small bowel evaluation/gastroenterology referral if has ongoing similar episodes or newly developing issues/indications of progressive inflammation Clear liquid diet advancing as tolerated Continue home carvedilol for blood pressure Continue home Lyrica Continue home quetiapine Hold stool softeners Continue home PPI Careful with position changes Supportive care otherwise Findings, concerns and plans were discussed with patient and she was given an opportunity to ask questions VTE prophylaxis: currently low risk in observation status GI Prophylaxis: PPI Telemetry: currently ordered given syncope today [place]: not currently indicated Line(s): peripheral IV Disposition plan: Currently anticipate home with close follow-up primary care provider including repeat electrolytes plus or minus potential referral to gastroenterology depending on results of above Code Status: Full code Attestations Medical Necessity Statement*: Currently anticipate a stay less than two midnights in this patient presenting for the second time in less than 24 hours with complaints of diarrhea, leg cramps and having had a likely vasovagal syncopal episode in the bank representative hours. Currently receiving IV fluids and repeat laboratory studies plus close monitoring for escalation of symptoms. Diagnoses Diarrhea R19.7 Dehydration E86.0 Syncope R55 Bilateral leg cramps R25.2 Irritable bowel disease K58.1 Irritable bowel syndrome type: with constipation Hypertension I10
[2023-06-14 16:57] VITALS: BP 115/61; PULSE 79; RESP 16; TEMP 36.3; O2SAT 100
[2023-06-14 20:00] VITALS: BP 120/71; PULSE 79; RESP 15; TEMP 36.4; O2SAT 93
[2023-06-14 20:12] LABS: Erythrocyte Sedimentation Rate 14 mm/hr (0-15)
[2023-06-14] MEDS: quetiapine 100 mg Tablet PO (20:28)
[2023-06-14] MEDS: carvedilol 25 mg Tablet PO (20:28)
[2023-06-14] MEDS: pregabalin 100 mg Capsule PO (20:28)
[2023-06-14 21:47] LABS: Add Urine Microscopic? NO; Charge for UA Resulting for Rev
[2023-06-14 21:54] LABS: Bilirubin Urine Neg (Negative); Blood Urine Neg (Negative); Glucose Urine UA Norm (Normal); Ketones Urine Negative (Negative); Leukocyte Esterase Urine Negative (Negative); Nitrate Urine Negative (Negative); Protein Urine Neg (Negative); Urine Appearance Clear (CLEAR); Urine Color Yellow (Yellow); Urobilinogen Urine Neg (Negative); pH Urine 5 (5-7)
[2023-06-14 22:00] VITALS: PULSE 80
[2023-06-14] MEDS: acetaminophen 325 mg Tablet 650 MG PO (22:44)
[2023-06-15] VITALS (7 sets, daily range): BP systolic 91–122; BP diastolic 59–75; PULSE 70–86; RESP 14–16; TEMP 36.4–36.6; O2SAT 96–99
[2023-06-15] MEDS: D5-NS 0.45% + KCL 20 mEq 20 MEQ/1,000 ML BAG 150 MEQ IV (04:59)
[2023-06-15] MEDS: pantoprazole DR 40 mg Tablet PO (04:59)
[2023-06-15 05:10] LABS: Anion Gap 11.3 (5-19); Blood Urea Nitrogen 26 mg/dL (6-20); Calcium 8.1 mg/dL (8.5-10.5); Carbon Dioxide 21 mmol/L (22-29); Chloride 112 mmol/L (98-107); Glomerular Filtration Rate 46.5 mL/min (90-130); Glucose 115 mg/dL (65-115); Magnesium 1.9 mg/dL (1.7-2.3); Osmolality Calculated 296 mOsm/kg (285-295); Phosphorus 3.4 mg/dL (2.5-4.5); Potassium 4.3 mmol/L (3.5-5.1); Sodium 140 mmol/L (136-145)
[2023-06-15] MEDS: carvedilol 25 mg Tablet PO (09:47)
[2023-06-15] MEDS: pregabalin 100 mg Capsule PO (09:47)
--- NOTE | 2023-06-15 12:05 | P.DS_ITS ---
Discharge Providers Date of Admission: 06/14/23 14:35 Date of Discharge: June 15, 2023 Attending Provider at Admission: Cathryn Avila MD Attending Provider at Discharge: Alyssia East MD Primary Care Provider: Roseanne Marin Diagnoses at Discharge Discharge Diagnosis (1) Diarrhea: Status: Acute (2) Dehydration: Status: Acute (3) Syncope: Status: Chronic (4) Bilateral leg cramps: Status: Acute (5) Irritable bowel disease: Status: Chronic Qualifiers: Irritable bowel syndrome type: with constipation Qualified Code(s): K58.1 - Irritable bowel syndrome with constipation (6) Hypertension: Status: Chronic Reason for Visit Reason for Visit: diarrhea, leg cramps Hospital Course Hospital Course This is a 57-year-old lady with a past medical history of what appears to be irritable bowel syndrome, history of recurrent SBO's, most recently in April 2023, history of breast cancer, history of recurrent syncope for which no obvious cause has been found and spite of extensive cardiac and neurogenic evaluation. She presented to the emergency room yesterday due to chief complaints of multiple episodes of diarrhea. Historically she has constipation from her IBS diagnosis and intermittently from opiates which have been prescribed to her postsurgically. Clinically at overall impression is that of irritable bowel sy ndrome causing her current symptoms. However her CT imaging suggested an inflammatory bowel process in the small bowel. Some of these findings have been noted previously dating back to a few years. She has had a colonoscopy and a small bowel follow-through studies that did not reveal any confirmatory findings. She reports she has not seen gastroenterology in the past. Gastroenteritis either viral versus mild bacterial does remain in the differential for which supportive management was provided. Patient had evidence of mild MARIBELL with creatinine at 1.4. She received IV hydration and supportive management. Creatinine is improving to 1.2. Urine output has been robust. Today she feels much better. States that her abdominal pain is nearly resolved. Diarrhea is still persisting, however reports that it is manageable today and she would like to return home and willing to try Imodium at home. C. difficile was tested and is negative. Referral has been provided to gastroenterology [facility] in [place] due to abnormal CT findings and current concern for possible inflammatory bowel disease. recommend to stay hydrated. Physical Exam Narrative: General: No acute distress, AO x3 HEENT: PERRLA, pupils bilaterally equal and reactive, pallors not present Chest: Normal vesicular breath sounds, no added sounds, equal good air entry bilaterally CVS: S1-S2 regular, no murmurs, no tachycardia, no gallops, no rubs Abdomen: Soft, nontender, no organomegaly, bowel sounds present, overall benign abdominal exam Neuro: No focal deficits, no facial deformity, AO x3, power 5/5 in all limbs Discharge Data Studies Completed and Pending Completed Studies During Hospitalization Category Date Time Status CT abdomen pelvis wo con [id number] Stat Cat Scan 06/14/23 12:02 Completed XR KUB portable [id number] Stat Exams 06/14/23 11:21 Completed Radiology Impressions KUB X-Ray 06/14/23 11:21 IMPRESSION: Dilated air-filled loops of small bowel in the central abdomen. Early or partial small bowel obstruction not excluded Laboratory Results WBC 8.05 10^3/uL (3.29-11.43) 06/14/23 11:10 RBC 5.50 10^6/uL (3.85-5.65) 06/14/23 11:10 Hgb 15.30 g/dL (11.27-16.99) 06/14/23 11:10 Hct 47.1 % (36-47) H 06/14/23 11:10 MCV 85.6 fl (85-98) 06/14/23 11:10 MCH 27.8 pg (27-33) 06/14/23 11:10 MCHC 32.5 g/dL (30-55) 06/14/23 11:10 RDW 14.1 % (12.1-15.1) 06/14/23 11:10 Plt Count 232 10^3/cmm (157-399) 06/14/23 11:10 MPV 10.9 fL (7.4-10.4) H 06/14/23 11:10 Neut % (Auto) 65.9 % 06/14/23 11:10 Lymph % (Auto) 26.5 % 06/14/23 11:10 [place] % (Auto) 6.0 % 06/14/23 11:10 Eos % (Auto) 0.7 % 06/14/23 11:10 Baso % (Auto) 0.5 % 06/14/23 11:10 Neut # (Auto) 5.31 10^3/uL (1.8-7.7) 06/14/23 11:10 Lymph # (Auto) 2.1 10^3/uL (0.8-4.8) 06/14/23 11:10 [place] # (Auto) 0.5 10^3/uL (0.2-0.9) 06/14/23 11:10 Eos # (Auto) 0.1 10^3/uL (0.0-0.8) 06/14/23 11:10 Baso # (Auto) 0.0 10^3/uL (0.0-0.1) 06/14/23 11:10 Nucleated RBC % (auto) 0 % 06/14/23 11:10 Nucleated RBCs # 0.0 /100WBC 06/14/23 11:10 ESR 14 mm/hr (0-15) 06/14/23 11:10 Sodium 140 mmol/L (136-145) 06/15/23 04:03 Potassium 4.3 mmol/L (3.5-5.1) 06/15/23 04:03 Chloride 112 mmol/L (98-107) H 06/15/23 04:03 Carbon Dioxide 21 mmol/L (22-29) L 06/15/23 04:03 Anion Gap 11.3 (5-19) 06/15/23 04:03 BUN 26 mg/dL (6-20) H 06/15/23 04:03 Creatinine 1.2 mg/dL (0.5-0.9) H 06/15/23 04:03 GFR Calculation 46.5 mL/min (90-130) L 06/15/23 04:03 Glucose 115 mg/dL (65-115) 06/15/23 04:03 Calculated Osmolality 296 mOsm/kg (285-295) H 06/15/23 04:03 Calcium 8.1 mg/dL (8.5-10.5) L 06/15/23 04:03 Phosphorus 3.4 mg/dL (2.5-4.5) 06/15/23 04:03 Magnesium 1.9 mg/dL (1.7-2.3) 06/15/23 04:03 Total Bilirubin 0.6 mg/dL (0.15-1.2) 06/14/23 11:10 AST 13 U/L (0-32) 06/14/23 11:10 ALT 15 U/L (0-33) 06/14/23 11:10 Alkaline Phosphatase 83 U/L (35-105) 06/14/23 11:10 C-Reactive Protein 3.0 mg/L (0.0-4.9) 06/14/23 11:10 Total Protein 7.5 g/dL (6.6-8.7) 06/14/23 11:10 Albumin 4.8 g/dL (3.5-5.2) 06/14/23 11:10 Globulin 2.7 g/dL (1.3-4.6) 06/14/23 11:10 Lipase 27 U/L (13-60) 06/14/23 11:10 Urine Color Yellow (Yellow) 06/14/23 21:36 Urine Appearance Clear (CLEAR) 06/14/23 21:36 Urine pH 5 (5-7) 06/14/23 21:36 Ur Specific [place] 1.020 (1.005-1.030) 06/14/23 21:36 Urine Protein Neg (Negative) 06/14/23 21:36 Urine Glucose (UA) Norm (Normal) 06/14/23 21:36 Urine Ketones Negative (Negative) 06/14/23 21:36 Urine Blood Neg (Negative) 06/14/23 21:36 Urine Nitrate Negative (Negative) 06/14/23 21:36 Urine Bilirubin Neg (Negative) 06/14/23 21:36 Urine Urobilinogen Neg mg/dL (Negative) 06/14/23 21:36 Ur Leukocyte Esterase Negative (Negative) 06/14/23 21:36 Vitals Last Vital Signs Temp 97.5 F L 06/15/23 11:23 Pulse 82 06/15/23 11:38 Resp 15 06/15/23 11:23 BP 105/70 06/15/23 11:23 Pulse Ox 97 06/15/23 11:38 O2 Del Method Room Air 06/15/23 11:38 Discharge Plan Discharge Patient Disposition: Home Condition: Stable Prescriptions: Continued sumatriptan succinate [Imitrex] 100 mg tablet See Rx Instructions PO .COMPLEX Qty: 90 3RF Rx Instructions: take 1 tab at onset of headache; if no relief, may repeat 1 tab after at least 2 hrs; max = 2 tabs/24 hrs PO potassium chloride 10 mEq capsule, extended release 10 meq PO QAM quetiapine [Seroquel] 100 mg tablet 100 mg PO BEDTIME Qty: 30 3RF carvedilol 25 mg tablet 25 mg PO BID Qty: 180 3RF Aimovig Autoinjector 140 mg/mL auto-injector See Rx Instructions .ROUTE .COMPLEX Qty: 1 5RF Dose Instruction: INJECT ONE PEN SUBCUTANEOUSLY ONCE PER MONTH FOR MIGRAINES Rx Instructions: INJECT ONE PEN SUBCUTANEOUSLY ONCE PER MONTH FOR MIGRAINES - ON THE 3RD OF EACH MONTH cyclobenzaprine 10 mg tablet 10 mg PO DAILY PRN (Reason: Muscle Spasm) meloxicam 15 mg tablet 15 mg PO QAM lactulose [Constulose] 10 gram/15 mL solution 10 g PO DAILY PRN (Reason: laxative effect) Qty: 473 0RF furosemide 20 mg tablet 20 mg PO QAM Fiber (psyllium husk) 0.4 gram Capsule 1.2 g PO DAILY trazodone 100 mg Tablet 100 - 200 mg PO BEDTIME PRN (Reason: Sleep) pantoprazole 40 mg tablet,delayed release (DR/EC) 40 mg PO QAM acyclovir 800 mg tablet 800 mg PO TID PRN (Reason: BREAKOUTS) pregabalin 100 mg capsule 100 mg PO Q12H Discharge Orders: Discharge Order (Routine); Ordered 06/15/23 Ordered By: Alyssia East Referrals: Roseanne Marin PA [Primary Care Provider] - 7-10 days Discharge Diet: Usual diet Discharge Activity: Resume usual activity Patient Instructions: Opioid Safety Discharge Attestations Time Spent in Discharge Care*: greater than 30 min Status at Discharge: Cognitive status at discharge: cognitively intact , Quality Metrics Clinical Quality Measures [ No reported AMI, CVA or VTE this stay] Coding Level of Care Code Acute Code for Chg Fwd Diagnoses Diarrhea R19.7 Dehydration E86.0 Syncope R55 Bilateral leg cramps R25.2 Irritable bowel disease K58.1 Irritable bowel syndrome type: with constipation Hypertension I10
--- NOTE | 2023-06-16 13:18 | PC.SOCIAL ---
Follow Up CM called patient for follow up and she reports that she was supposed to have referral to Gastroenterology. She is requesting [facility] if possible. Discussed w/ Dr. East and she is agreeable. New referral efaxed to [facility] to Dr. Priti Vasquez for Gastroenterology @ this time.
== END 2023-06-15 13:15 | disposition home or self-care (01) ==
LOC: ER 11:21 → MEDSURG 17:08
PROVIDERS: Emergency Medicine; Admitting Provider Hospitalist; Emergency Provider Family Medicine; PCP Physician Assistant; Visit Provider Student in an Organized Health Care Education/Training Program
DX: R19.7 Diarrhea, unspecified (principal); E86.0 Dehydration; R55 Syncope and collapse; R25.2 Cramp and spasm; K58.1 Irritable bowel syndrome with constipation; I10 Essential (primary) hypertension; Z85.3 Personal history of malignant neoplasm of breast
CPT/HCPCS: 36415; 74018; 74176; 80048; 80053; 81003; 82274; 83630; 83690; 83735; 84100; 85025; 85651; 86140; 87493; 87506; 96361; 96365; 96366; 96375; 99285; G0378; J2405; J7030

== ENCOUNTER 2023-06-30 11:42 | Emergency (ER) | payer MEDICARE, MEDICAID, SELFPAY ==
[2023-06-30 11:45] VITALS: BP 143/79; PULSE 80; RESP 16; TEMP 36.7; O2SAT 96
--- NOTE | 2023-06-30 12:10 | ED_ITS ---
HPI - Abdominal Pain General: Chief Complaint: Abdominal Pain Stated Complaint: NVD Time Seen by Provider: 06/30/23 11:47 Source: patient Mode of arrival: ambulatory Limitations: no limitations History of Present Illness: Patient is a 58-year-old female who presents to ED today with complaint of abdominal pain and diarrhea starting this morning when she woke up. She states she has a longstanding history of abdominal pains, enterocolitis, recurrent bowel obstructions. Previous abdominal surgeries include adhesiolysis, ventral hernia repair, laparoscopic hysterectomy, and cholecystectomy, appendectomy. Patient states she feels nauseous but has not had any episodes of vomiting. Patient is not running fevers. Denies melena or hematochezia. MD elicited complaint: abdominal pain Onset (ago): hour(s) Pain Consistency: constant Location: Diffuse Severity: severe Quality: cramping Radiation: none Migration to: no migration Exacerbating factors: eating Relieving factors: nothing Context: history of similar episodes Associated Symptoms: Reports GI cramping, diarrhea and nausea; Denies chills, dysuria, fever(s), hematochezia, hematuria, hematemesis, melena and vomiting Related Data: Patient : No Review of Systems Const: Denies: fever(s), chills, body aches, fatigue or malaise Card: Denies: chest pain Resp: Denies: dyspnea GI: Reports: abdominal pain, nausea, diarrhea and GI cramping; Denies: vomiting, hematemesis, rectal pain, hematochezia or melena : Denies: flank pain, dysuria or hematuria Musc: Denies: neck pain, back pain, extremity pain or joint pain Skin/Breast: Denies: rash Neuro: Denies: headache(s), numbness in extremities, weakness in extremities or sensory changes PFS ED PFSH: Medical History Benign essential HTN Borderline personality disorder Breast cancer Chronic migraine without aura, intractable, with status migrainosus DCIS (ductal carcinoma in situ) ER/MA negative, tamoxifen Depression with anxiety Fear of insects (Unknown) Specifically tics Functional neurological symptom disorder with attacks or seizures Dr. Chepe Pickering-- Neurology [facility] Herpes genitalia History of cardiac arrest History of colon polyps History of electroencephalogram 05/2023 IMPRESSION: This was a normal routine EEG, awake and drowsy and asleep, with no behavioral or electrographic epileptiform activity. A normal EEG does not exclude a diagnosis of epilepsy. History of Holter monitoring 04/2023 Baseline rhythm is sinus rhythm. HR ranged from 56-135, avg 80 bpm, nnspecified patient symptom correlated with isolated PVC History of malignant melanoma Hot flashes HTN (hypertension) with goal to be determined Inappropriate sinus tachycardia Irritable bowel disease Lumbar radiculitis Major depressive disorder, recurrent, severe with psychotic symptoms [facility] managing Malignant hypertension Psychiatric care Recurrent syncope Small bowel obstruction Surgical History H/O tubal ligation (~2008) History of appendectomy (01/2021) History of augmentation of both breasts 2012 silicone implants, removed at time of mastectomies History of colonoscopy History of exploratory laparotomy (01/2021) with lysis of adhesions, performed due to SBO Hx of abdominoplasty (~2009) Hx of bilateral mastectomy Hx of section (~2008) x 1 Hx of decompressive lumbar laminectomy ---2014 L5-S1 [facility] IN [place], [place] ---10/20/2020 Revision; Dr Dalia ALBERT Hx of hernia repair (~2012) ventral (patient thinks mesh was used) Hx of hysterectomy (~2008) CHRISTINA-- ovaries spared. Intra-abdominal adhesions (~10/2020) adhesiolysis / incidental appendectomy-- at same time as bowel obstruction Family History Mother Breast cancer dx age unknown Hypertension Grandmother Breast cancer Maternal--dx age 60's Hypertension Maternal and Paternal Sister No problems noted. Daughter Uterine cancer dx age 28 Father Diabetes Hypertension Stroke Grandfather Hypertension maternal and Paternal Denies family history of Colon cancer Ovarian cancer Social History Smoking and tobacco status: never smoked Alcohol intake: current Alcohol intake frequency: holidays/special occasions only Alcohol type: wine Substance/Drug Use: never Do you think of yourself as: Straight/Heterosexual Physical Exam Const: COMMON NORMALS: no acute distress, patient oriented x3, no limitations, healthy appearing, alert and well nourished GENERAL APPEARANCE: cooperative ORIENTATION/CONSCIOUSNESS: Yes awake, Yes oriented to person, Yes oriented to place and Yes oriented to time HENMT: COMMON NORMALS: normocephalic and atraumatic HEAD & SCALP: normal to inspection, normocephalic and atraumatic Resp: COMMON NORMALS: normal respiratory effort and clear to auscultation bilaterally AUSCULTATION: clear to auscultation bilaterally Cardio: COMMON NORMALS: regular rate and regular rhythm RATE: regular rate RHYTHM: regular rhythm GI: COMMON NORMALS: Soft to palpation INSPECTION: Yes normal to inspection and Yes scar AUSCULTATION: Yes Hypoactive bowel sounds present PALPATION: Yes Soft to palpation, Yes Tenderness to palpation present (GI) (diffuse), No Guarding due to palpation present (GI) and No Rigid due to palpation : COMMON NORMALS: Yes no CVA tenderness BLADDER/KIDNEY EXAM: Yes no CVA tenderness Back/Pelvis: COMMON NORMALS: no CVA tenderness Extremity: COMMON NORMALS: normal to inspection GENERAL: Yes normal exam except as noted Neuro: [place] COMA SCALE: document GCS findings [place] coma scale eye o pening: Spontaneous [place] coma scale verbal response: Orientated [place] coma scale motor response: Obey commands [place] coma scale total score: 15 COMMON NORMALS: patient oriented x3, moves all extremities, no focal motor deficits and no sensory deficits noted SENSORIUM/ORIENTATION: Yes alert, Yes oriented to person, Yes oriented to place and Yes oriented to time Skin: COMMON NORMALS: no rashes or lesions noted GENERAL SKIN EXAM: no rashes or lesions noted Course Vital Signs: Vital signs: Vital Signs Temperature 98.0 F 06/30/23 11:45 Pulse Rate 83 06/30/23 13:09 Respiratory Rate 18 06/30/23 13:09 Blood Pressure 143/79 06/30/23 13:09 Pulse Oximetry 95 06/30/23 13:09 Oxygen Delivery Me thod Room Air 06/30/23 13:09 MDM - Abdominal Pain Medical Decision Making Patient's vital signs are normal. She has not had any episodes of vomiting or diarrhea while here. Blood work overall is unremarkable. Her initial UA was contaminated with 25-40 squamous cells. We instructions on clean-catch procedure and collected additional sample to retest however patient states she does not want to stay for these results. She states she is ready to go home. Her abdominal x-ray showing no acute findings. We did discuss doing a bland liquid diet over the next 48 hours and slowly advance as tolerated. I will send her home with a prescription for Zofran. She states she has appointment with primary care tomorrow that she will follow-up with. Return to ED precautions given. Lab Data 06/30/23 12:05 06/30/23 12:05 Labs/Radiology: Radiology Impressions Abdomen X-Ray 06/30/23 12:31 IMPRESSION: No acute findings. Laboratory Results WBC 8.06 10^3/uL (3.29-11.43) 06/30/23 12:05 RBC 5.20 10^6/uL (3.85-5.65) 06/30/23 12:05 Hgb 14.70 g/dL (11.27-16.99) 06/30/23 12:05 Hct 43.7 % (36-47) 06/30/23 12:05 MCV 84.0 fl (85-98) L 06/30/23 12:05 MCH 28.3 pg (27-33) 06/30/23 12:05 MCHC 33.6 g/dL (30-55) 06/30/23 12:05 RDW 14.1 % (12.1-15.1) 06/30/23 12:05 Plt Count 235 10^3/cmm (157-399) 06/30/23 12:05 MPV 11.5 fL (7.4-10.4) H 06/30/23 12:05 Neut % (Auto) 64.3 % 06/30/23 12:05 Lymph % (Auto) 28.2 % 06/30/23 12:05 [place] % (Auto) 5.5 % 06/30/23 12:05 Eos % (Auto) 1.5 % 06/30/23 12:05 Baso % (Auto) 0.4 % 06/30/23 12:05 Neut # (Auto) 5.19 10^3/uL (1.8-7.7) 06/30/23 12:05 Lymph # (Auto) 2.3 10^3/uL (0.8-4.8) 06/30/23 12:05 [place] # (Auto) 0.4 10^3/uL (0.2-0.9) 06/30/23 12:05 Eos # (Auto) 0.1 10^3/uL (0.0-0.8) 06/30/23 12:05 Baso # (Auto) 0.0 10^3/uL (0.0-0.1) 06/30/23 12:05 Nucleated RBC % (auto) 0 % 06/30/23 12:05 Nucleated RBCs # 0.0 /100WBC 06/30/23 12:05 Sodium 142 mmol/L (136-145) 06/30/23 12:05 Potassium 4.0 mmol/L (3.5-5.1) 06/30/23 12:05 Chloride 106 mmol/L (98-107) 06/30/23 12:05 Carbon Dioxide 26 mmol/L (22-29) 06/30/23 12:05 Anion Gap 14.0 (5-19) 06/30/23 12:05 BUN 14 mg/dL (6-20) 06/30/23 12:05 Creatinine 1.0 mg/dL (0.5-0.9) H 06/30/23 12:05 GFR Calculation 57.1 mL/min (90-130) L 06/30/23 12:05 Glucose 107 mg/dL (65-115) 06/30/23 12:05 Calculated Osmolality 295 mOsm/kg (285-295) 06/30/23 12:05 Calcium 9.1 mg/dL (8.5-10.5) 06/30/23 12:05 Total Bilirubin 0.5 mg/dL (0.15-1.2) 06/30/23 12:05 AST 12 U/L (0-32) 06/30/23 12:05 ALT 15 U/L (0-33) 06/30/23 12:05 Alkaline Phosphatase 75 U/L (35-105) 06/30/23 12:05 Total Protein 6.5 g/dL (6.6-8.7) L 06/30/23 12:05 Albumin 4.2 g/dL (3.5-5.2) 06/30/23 12:05 Globulin 2.3 g/dL (1.3-4.6) 06/30/23 12:05 Lipase 25 U/L (13-60) 06/30/23 12:05 Urine Color Yellow (Yellow) 06/30/23 12:30 Urine Appearance Cloudy (CLEAR) A 06/30/23 12:30 Urine pH 5 (5-7) 06/30/23 12:30 Ur Specific [place] 1.025 (1.005-1.030) 06/30/23 12:30 Urine Protein Trace (Negative) 06/30/23 12:30 Urine Glucose (UA) Norm (Normal) 06/30/23 12:30 Urine Ketones 1+ (Negative) H 06/30/23 12:30 Urine Blood Neg (Negative) 06/30/23 12:30 Urine Nitrate Negative (Negative) 06/30/23 12:30 Urine Bilirubin 1+ (Negative) H 06/30/23 12:30 Urine Urobilinogen 1 mg/dL (Negative) H 06/30/23 12:30 Ur Leukocyte Esterase 1+ (Negative) H 06/30/23 12:30 Urine RBC 0-4 /hpf (0-2) H 06/30/23 12:30 Urine WBC 40-55 /hpf (0-5) H 06/30/23 12:30 Ur Squamous Epith Cells 25-40 /hpf (0-5) H 06/30/23 12:30 Amorphous Sediment Not Reportable 06/30/23 12:30 Urine Bacteria 2+ /hpf (NONE) H 06/30/23 12:30 Urine Mucus 1+ /hpf 06/30/23 12:30 All radiology interpretation(s) finalized by discharge Discharge Plan Discharge Patient Disposition: Home Clinical Impression: Diarrhea Qualifiers: Diarrhea type: unspecified type Qualified Code(s): R19.7 - Diarrhea, unspecified Abdominal pain Qualifiers: Abdominal location: generalized Qualified Code(s): R10.84 - Generalized abdominal pain Condition: Stable Prescriptions: New ondansetron 4 mg tablet,disintegrating 4 mg PO Q8H PRN (Reason: nausea and vomiting) Qty: 14 0RF No Action sumatriptan succinate [Imitrex] 100 mg tablet See Rx Instructions PO .COMPLEX Qty: 90 3RF Rx Instructions: take 1 tab at onset of headache; if no relief, may repeat 1 tab after at least 2 hrs; max = 2 tabs/24 hrs PO carvedilol 25 mg tablet 25 mg PO BID Qty: 180 3RF Aimovig Autoinjector 140 mg/mL auto-injector See Rx Instructions .ROUTE .COMPLEX Qty: 1 5RF Dose Instruction: INJECT ONE PEN SUBCUTANEOUSLY ONCE PER MONTH FOR MIGRAINES Rx Instructions: INJECT ONE PEN SUBCUTANEOUSLY ONCE PER MONTH FOR MIGRAINES - ON THE 3RD OF EACH MONTH psyllium husk [Fiber (psyllium husk)] 0.4 gram Capsule 1.2 g PO DAILY pantoprazole 40 mg tablet,delayed release (DR/EC) 40 mg PO QAM acyclovir 800 mg tablet 800 mg PO TID PRN (Reason: BREAKOUTS) pregabalin 100 mg capsule 100 mg PO Q12H quetiapine 25 mg tablet See Rx Instructions .ROUTE .COMPLEX PRN (Reason: Anxiety) Rx Instructions: 25 mg orally daily as needed for anixiety or psychosis Discharge Orders: Discharge ED (Routine); Ordered 06/30/23 Ordered By: Emilia Loaiza Referrals: Roseanne Marin PA [Primary Care Provider] - Patient Instructions: Acute Diarrhea (ED), Abdominal Pain (ED) Activity Restrictions/Additional Instructions: As we discussed your vital signs are stable. Your blood work is non-concerning. Your initial urine analysis was contaminated. We attempted to repeat this but you did not want to stay for results. Your x-ray did not show any acute bowel obstruction. As we discussed I would like you to do a bland liquid diet over the next 48 hours and slowly advance to soft foods and then further as tolerated. Please follow-up with your primary care provider at your scheduled appointment tomorrow. I hope you begin to feel better soon. You may return to the emergency department for worsening abdominal pain, worsening diarrhea or vomiting, fevers, generally feeling worse or unwell, or any other concerns you may have. Coding Level of Care Code ED Media Liaison Officer for 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
[2023-06-30 12:13] LABS: Basophils % 0.4 %; Eosinophils # 0.1 10^3/uL (0.0-0.8); Eosinophils % 1.5 %; Hematocrit 43.7 % (36-47); Lymphocytes # 2.3 10^3/uL (0.8-4.8); Lymphocytes % 28.2 %; Mean Corpuscular HGB Conc 33.6 g/dL (30-55); Mean Corpuscular Hemoglobin 28.3 pg (27-33); Mean Platelet Volume 11.5 fL (7.4-10.4); Monocytes # 0.4 10^3/uL (0.2-0.9); Monocytes % 5.5 %; Neutrophils # 5.19 10^3/uL (1.8-7.7); Neutrophils % 64.3 %; Nucleated Red Blood Cells % 0 %; Platelet Count 235 10^3/cmm (157-399); Red Cell Distribution Width 14.1 % (12.1-15.1); White Blood Count 8.06 10^3/uL (3.29-11.43)
--- NOTE | 2023-06-30 12:31 | XRR_ITS ---
PROCEDURE INFORMATION: Exam: XR Abdomen Exam date and time: 06/30/2023 1:31 PM Age: 58 years old Clinical indication: Nausea and vomiting; Abdominal pain; Prior surgery; Surgery date: 6+ months; Surgery type: Bowel obstruction, hyst, appy, gb, double mast; Additional info: Adominal pain, diarrhea TECHNIQUE: Imaging protocol: Radiologic exam of the abdomen. Views: 2 Views. Upright and supine views. COMPARISON: CT abdomen pelvis con [id number] 06/14/2023 12:31 PM FINDINGS: Gastrointestinal tract: Normal. No bowel dilation. Intraperitoneal space: Normal. No free air. Organs: Previous cholecystectomy. Bones/joints: Unremarkable for age. XR/XR abdomen min 2V [id number] IMPRESSION: No acute findings.
[2023-06-30 12:32] LABS: Alanine Aminotransferase 15 U/L (0-33); Albumin Level 4.2 g/dL (3.5-5.2); Alkaline Phosphatase 75 U/L (35-105); Aspartate Amino Transferase 12 U/L (0-32); Blood Urea Nitrogen 14 mg/dL (6-20); Calcium 9.1 mg/dL (8.5-10.5); Carbon Dioxide 26 mmol/L (22-29); Chloride 106 mmol/L (98-107); Globulin 2.3 g/dL (1.3-4.6); Glomerular Filtration Rate 57.1 mL/min (90-130); Glucose 107 mg/dL (65-115); Lipase 25 U/L (13-60); Osmolality Calculated 295 mOsm/kg (285-295); Sodium 142 mmol/L (136-145); Total Bilirubin 0.5 mg/dL (0.15-1.2); Total Protein 6.5 g/dL (6.6-8.7)
[2023-06-30 12:59] LABS: Bilirubin Urine 1+ (Negative); Blood Urine Neg (Negative); Glucose Urine UA Norm (Normal); Ketones Urine 1+ (Negative); Leukocyte Esterase Urine 1+ (Negative); Nitrate Urine Negative (Negative); Protein Urine Trace (Negative); Specific Gravity, Urine 1.025 (1.005-1.030); Urine Appearance Cloudy (CLEAR); Urine Color Yellow (Yellow); Urobilinogen Urine 1 mg/dL (Negative); pH Urine 5 (5-7)
[2023-06-30 13:00] LABS: Add Urine Culture? No; Add Urine Microscopic? YES; Bacteria Urine 2+ /hpf; Mucus Urine 1+ /hpf; RBC Urine 0-4 /hpf (0-2); Squamous Epithelial Cell Urine 25-40 /hpf (0-5); WBC Urine 40-55 /hpf (0-5)
[2023-06-30] MEDS: sodium chloride 0.9% 1,000 ML 999 ML IV (13:08)
[2023-06-30 13:09] VITALS: BP 143/79; PULSE 83; RESP 18; O2SAT 95
[2023-06-30] MEDS: ondansetron 2 mg/ML SDV 2 mL 4 MG IVP (13:09)
[2023-06-30 14:37] LABS: Charge for UA Resulting for Rev
[2023-06-30 14:57] VITALS: PULSE 83; RESP 18; O2SAT 99
[2023-06-30 15:00] LABS: Add Urine Microscopic? YES; Bilirubin Urine 1+ (Negative); Blood Urine Neg (Negative); Glucose Urine UA Norm (Normal); Ketones Urine 1+ (Negative); Leukocyte Esterase Urine Trace (Negative); Nitrate Urine Negative (Negative); Protein Urine Neg (Negative); Urine Appearance SL Hazy (CLEAR); Urine Color Yellow (Yellow); Urobilinogen Urine 1 mg/dL (Negative); pH Urine 5 (5-7)
== END 2023-06-30 14:58 | disposition home or self-care (01) ==
PROVIDERS: Emergency Provider Physician Assistant; PCP Physician Assistant
DX: R10.84 Generalized abdominal pain (principal); R19.7 Diarrhea, unspecified; I10 Essential (primary) hypertension; Z85.3 Personal history of malignant neoplasm of breast
CPT/HCPCS: 36415; 74019; 80053; 81001; 81003; 83690; 85025; 96361; 96374; 99284; J2405; J7030

== ENCOUNTER 2023-07-20 21:59 | Emergency (ER) | payer MEDICARE, MEDICAID, SELFPAY ==
[2023-07-20 22:06] VITALS: BP 201/97; PULSE 69; RESP 20; TEMP 36.4; O2SAT 99; BMI 32.0
--- NOTE | 2023-07-20 22:53 | W.ED.HA ---
HPI - Headache General: Chief Complaint: Headache Stated Complaint: migraine Time Seen by Provider: 07/20/23 22:32 History of Present Illness: 58-year-old female comes in today with complaints of a headache. Patient is needing treatment for migraine headache. Patient has a history of migraine headaches and this is similar to her previous migraines. Patient this morning had breast reconstruction surgery for breast cancer. Patient reports no pain or discomfort with the procedure but has a severe headache. Patient appears nontoxic. Patient is verbal. No focal neural deficits are noted. Patient believes migraine was set off by being n.p.o. prior to the procedure. Patient reports prior migraine episodes with a similar instance. Review of Systems General: Reports: 10 or more systems reviewed and unremarkable except in HPI and below Neuro: Reports: headache(s) PFSH ED PFSH: Medical History Benign essential HTN Borderline personality disorder Breast cancer Chronic migraine without aura, intractable, with status migrainosus DCIS (ductal carcinoma in situ) ER/[place] negative, tamoxifen Depression with anxiety Fear of insects (Unknown) Specifically tics Functional neurological symptom disorder with attacks or seizures Dr. Chepe Pickering-- Neurology [facility] Herpes genitalia History of cardiac arrest History of colon polyps History of electroencephalogram 05/2023 IMPRESSION: This was a normal routine EEG, awake and drowsy and asleep, with no behavioral or electrographic epileptiform activity. A normal EEG does not exclude a diagnosis of epilepsy. History of Holter monitoring 04/2023 Baseline rhythm is sinus rhythm. HR ranged from 56-135, avg 80 bpm, nnspecified patient symptom correlated with isolated PVC History of malignant melanoma Hot flashes HTN (hypertension) with goal to be determined Inappropriate sinus tachycardia Irritable bowel disease Lumbar radiculitis Major depressive disorder, recurrent, severe with psychotic symptoms [facility] managing Malignant hypertension Psychiatric care Recurrent syncope Small bowel obstruction Surgical History H/O tubal ligation (~2008) History of appendectomy (01/2021) History of augmentation of both breasts 2013 silicone implants, removed at time of mastectomies History of colonoscopy History of exploratory laparotomy (01/2021) with lysis of adhesions, performed due to SBO Hx of abdominoplasty (~2009) Hx of bilateral mastectomy Hx of section (~2008) x 1 Hx of decompressive lumbar laminectomy ---2014 L5-S1 [facility] IN [place], [place] ---10/20/2020 Revision; Dr Dalia ALBERT Hx of hernia repair (~2012) ventral (patient thinks mesh was used) Hx of hysterectomy (~2008) CHRISTINA-- ovaries spared. Intra-abdominal adhesions (~10/2020) adhesiolysis / incidental appendectomy-- at same time as bowel obstruction Family History Mother Breast cancer dx age unknown Hypertension Grandmother Breast cancer Maternal--dx age 60's Hypertension Maternal and Paternal Sister No problems noted. Daughter Uterine cancer dx age 28 Father Diabetes Hypertension Stroke Grandfather Hypertension maternal and Paternal Denies family history of Colon cancer Ovarian cancer Social History Smoking and tobacco/nicotine status: never used tobacco/nicotine Alcohol intake: current Alcohol intake frequency: holidays/special occasions only Alcohol type: wine Substance/Drug Use: never Do you think of yourself as: Straight/Heterosexual Physical Exam Const: COMMON NORMALS: alert HENMT: COMMON NORMALS: normocephalic HEAD & SCALP: normocephalic Neck/C-Spine: COMMON NORMALS: full ROM Resp: COMMON NORMALS: normal respiratory effort and clear to auscultation bilaterally AUSCULTATION: clear to auscultation bilaterally Cardio: COMMON NORMALS: regular rate RATE: regular rate Extremity: COMMON NORMALS: normal to inspection Neuro: SENSORIUM/ORIENTATION: Yes alert Skin: COMMON NORMALS: turgor normal GENERAL SKIN EXAM: turgor normal Course Vital Signs: Vital signs: Vital Signs Temperature 97.6 F 07/20/23 22:06 Pulse Rate 69 07/20/23 22:06 Respiratory Rate 20 H 07/20/23 22:06 Blood Pressure 201/97 07/20/23 22:06 Pulse Oximetry 99 07/20/23 22:06 MDM - Headache Medical Decision Making 58-year-old female comes in today for concerns of migraine headache. Patient appears nontoxic. No focal neural deficits are noted. Vital signs are normal except for elevated blood pressure. Differential diagnosis includes but not limited to migraine, adverse drug effect, post anesthesia headache. Patient was given migraine cocktail of ketorolac, Reglan, dexamethasone, and diphenhydramine. Patient was also given 10 mg of hydralazine for elevated blood pressure. Patient was monitored and then released to home after improvement of headache. No radiology studies performed this visit Discharge Plan Discharge Patient Disposition: Home Clinical Impression: Migraine Qualifiers: Migraine type: unspecified Status migrainosus presence: without status migrainosus Intractability: not intractable Qualified Code(s): G43.909 - Migraine, unspecified, not intractable, without status migrainosus Condition: Stable Prescriptions: No Action quetiapine [Seroquel] 50 mg tablet 50 mg PO BEDTIME Qty: 30 3RF Rx Instructions: Take one tablet at bedtime sertraline [Zoloft] 50 mg tablet 50 mg PO .morning Qty: 30 3RF Rx Instructions: Take one tablet every morning sumatriptan succinate [Imitrex] 100 mg tablet See Rx Instructions PO .COMPLEX Qty: 90 3RF Rx Instructions: take 1 tab at onset of headache; if no relief, may repeat 1 tab after at least 2 hrs; max = 2 tabs/24 hrs PO carvedilol 25 mg tablet 25 mg PO BID Qty: 180 3RF Aimovig Autoinjector 140 mg/mL auto-injector See Rx Instructions .ROUTE .COMPLEX Qty: 1 5RF Dose Instruction: INJECT ONE PEN SUBCUTANEOUSLY ONCE PER MONTH FOR MIGRAINES Rx Instructions: INJECT ONE PEN SUBCUTANEOUSLY ONCE PER MONTH FOR MIGRAINES - ON THE 3RD OF EACH MONTH psyllium husk [Fiber (psyllium husk)] 0.4 gram Capsule 1.2 g PO DAILY pantoprazole 40 mg tablet,delayed release (DR/EC) 40 mg PO QAM acyclovir 800 mg tablet 800 mg PO TID PRN (Reason: BREAKOUTS) pregabalin 100 mg capsule 100 mg PO Q12H ondansetron 4 mg tablet,disintegrating 4 mg PO Q8H PRN (Reason: nausea and vomiting) Qty: 14 0RF Discharge Orders: Discharge ED (Routine); Ordered 07/21/23 Ordered By: Daniel Soto Referrals: Roseanne Marin PA [Primary Care Provider] - Discharge Diet: Usual diet Discharge Activity: Increase activity as tolerated Patient Instructions: Migraine Headache (ED) Activity Restrictions/Additional Instructions: Continue routine care. 3 plenty of water. Follow-up with primary care for further instructions. Return to ED for new concerns. Coding Level of Care Code ED Wire Steward for 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
[2023-07-20] MEDS: metoclopramide 5 mg/mL SDV 2 mL 10 MG IVP (23:32)
[2023-07-20] MEDS: dexamethasone 10 mg/mL INJ IVP (23:32)
[2023-07-20] MEDS: sodium chloride 0.9% 1,000 ML 999 ML IV (23:32)
[2023-07-20] MEDS: hyDRALAzine 20 mg/mL INJ 1 mL 10 MG IVP (23:33)
[2023-07-20] MEDS: ketorolac 30 mg/mL INJ 15 MG IVP (23:33)
[2023-07-20] MEDS: diphenhydrAMINE 50 mg/mL SDV 1mL 12.5 MG IVP (23:33)
[2023-07-21 00:13] VITALS: BP 157/84; PULSE 88; RESP 18; O2SAT 98
== END 2023-07-21 00:36 | disposition home or self-care (01) ==
PROVIDERS: Emergency Provider Nurse Practitioner Family; PCP Physician Assistant
DX: G43.909 Migraine, unspecified, not intractable, without status migrainosus (principal); I10 Essential (primary) hypertension; Z85.3 Personal history of malignant neoplasm of breast
CPT/HCPCS: 96361; 96374; 96375; 99284; J0360; J1100; J1200; J1885; J2765; J7030

== ENCOUNTER → 2023-08-09 07:45 | Outpatient (BNVA) | payer MEDICAID, SELFPAY | PROVIDERS: PCP Physician Assistant; Visit Provider Specialist | DX: G40.909 Epilepsy, unspecified, not intractable, without status epilepticus (principal); G43.711 Chronic migraine without aura, intractable, with status migrainosus | CPT/HCPCS: 99214 ==

== ENCOUNTER 2023-10-03 22:07 | Emergency (ER) | payer MEDICARE, MEDICAID, SELFPAY ==
[2023-10-03 22:08] VITALS: BP 135/88; PULSE 82; RESP 18; TEMP 36.7; O2SAT 96; BMI 31.1
[2023-10-03] MEDS: sodium chloride 0.9% 1,000 ML 999 ML IV (22:51)
[2023-10-03] MEDS: ondansetron 2 mg/ML SDV 2 mL 4 MG IVP (22:51)
[2023-10-03 23:30] LABS: Alanine Aminotransferase 15 U/L (0-33); Albumin Level 4.4 g/dL (3.5-5.2); Alkaline Phosphatase 115 U/L (35-105); Anion Gap 16.8 (5-19); Aspartate Amino Transferase 15 U/L (0-32); Blood Urea Nitrogen 12 mg/dL (6-20); C Reactive Protein 10.8 mg/L (0.0-4.9); Carbon Dioxide 25 mmol/L (22-29); Chloride 101 mmol/L (98-107); Globulin 3.1 g/dL (1.3-4.6); Glomerular Filtration Rate 57.1 mL/min (90-130); Glucose 106 mg/dL (65-115); Lipase 22 U/L (13-60); Osmolality Calculated 286 mOsm/kg (285-295); Potassium 4.8 mmol/L (3.5-5.1); Sodium 138 mmol/L (136-145); Total Bilirubin 0.4 mg/dL (0.15-1.2); Total Protein 7.5 g/dL (6.6-8.7)
[2023-10-03 23:43] LABS: Basophils % 0.2 %; Eosinophils # 0.1 10^3/uL (0.0-0.8); Eosinophils % 1.3 %; Hematocrit 49.2 % (36-47); Lymphocytes # 1.7 10^3/uL (0.8-4.8); Lymphocytes % 20.8 %; Mean Corpuscular HGB Conc 32.7 g/dL (30-55); Mean Corpuscular Hemoglobin 26.9 pg (27-33); Mean Corpuscular Volume 82.1 fl (85-98); Mean Platelet Volume 11.9 fL (7.4-10.4); Monocytes # 0.5 10^3/uL (0.2-0.9); Monocytes % 5.7 %; Neutrophils # 5.91 10^3/uL (1.8-7.7); Neutrophils % 71.8 %; Nucleated Red Blood Cells % 0 %; Platelet Count 247 10^3/cmm (157-399); Red Blood Count 5.99 10^6/uL (3.85-5.65); White Blood Count 8.24 10^3/uL (3.29-11.43)
--- NOTE | 2023-10-04 00:01 | ED_ITS ---
HPI - Nausea/Vomiting/Diarrhea 2 General: Chief complaint: Nausea/Vomiting/Diarrhea Stated complaint: N/V/D Time Seen by Provider: 10/03/23 22:52 History of Present Illness: 58-year-old female presenting with nause a vomiting and diarrhea since this morning. She does not believe she had temperature. No blood in the stool or vomitus. She has vomited 2 times, large amounts. She has had multiple episodes of diarrhea. Mild cramping belly pain. She has some leg cramps as well. She took Zofran at home, without improvement. She is currently improved after administration of Toradol Zofran and fluids here. Associated nausea: Yes Associated symtoms: Reports nausea; Denies change in vision, chest pain, dizziness, headache(s) or palpitations Review of Systems 2 Const: Denies: fever(s), chills or body aches Eyes: Denies: change in vision Card: Denies: chest pain or palpitations Resp: Reports: non-productive cough; Denies: dyspnea, productive cough or wheezing GI: Reports: abdominal pain, nausea, vomiting and diarrhea; Denies: hematochezia : Denies: difficulty voiding Skin/Breast: Denies: rash Neuro: Denies: headache(s), weakness in extremities, dizziness or confusion PFSH ED 2 PFSH: Medical History History of Holter monitoring 04/2023 Baseline rhythm is sinus rhythm. HR ranged from 56-135, avg 80 bpm, nnspecified patient symptom correlated with isolated PVC History of electroencephalogram 05/2023 IMPRESSION: This was a normal routine EEG, awake and drowsy and asleep, with no behavioral or electrographic epileptiform activity. A normal EEG does not exclude a diagnosis of epilepsy. Small bowel obstruction DCIS (ductal carcinoma in situ) ER/[place] negative, tamoxifen History of cardiac arrest Benign essential HTN Breast cancer Chronic migraine without aura, intractable, with status migrainosus Recurrent syncope History of colon polyps Psychiatric care Inappropriate sinus tachycardia Malignant hypertension History of malignant melanoma Fear of insects (Unknown) Specifically tics Major depressive disorder, recurrent, severe with psychotic symptoms [facility] managing Lumbar radiculitis Herpes genitalia Hot flashes Irritable bowel disease Depression with anxiety HTN (hypertension) with goal to be determined Borderline personality disorder Functional neurological symptom disorder with attacks or seizures Dr. Chepe Pickering-- Neurology [facility] Surgical History History of appendectomy (01/2021) History of exploratory laparotomy (01/2021) with lysis of adhesions, performed due to SBO Hx of bilateral mastectomy History of colonoscopy Intra-abdominal adhesions (~10/2020) adhesiolysis / incidental appendectomy-- at same time as bowel obstruction H/O tubal ligation (~2008) Hx of abdominoplasty (~2009) History of augmentation of both breasts 2012 silicone implants, removed at time of mastectomies Hx of section (~2008) x 1 Hx of hernia repair (~2012) ventral (patient thinks mesh was used) Hx of hysterectomy (~2008) CHRISTINA-- ovaries spared. Hx of decompressive lumbar laminectomy ---2014 L5-S1 [facility] IN [place], [place]. ---10/20/2020 Revision; Dr Dalia ALBERT Family History Mother Breast cancer dx age unknown Hypertension Grandmother Breast cancer Maternal--dx age 60's Hypertension Maternal and Paternal Sister No problems noted. Daughter Uterine cancer dx age 28 Father Diabetes Hypertension Stroke Grandfather Hypertension maternal and Paternal Denies family history of Colon cancer Ovarian cancer Social History Smoking and tobacco/nicotine status: never used tobacco/nicotine Alcohol intake: current Alcohol intake frequency: holidays/special occasions only Alcohol type: wine Substance/Drug Use: never Do you think of yourself as: Straight/Heterosexual Physical Exam 2 Const: COMMON NORMALS: no acute distress GENERAL APPEARANCE: cooperative; not ill appearing and not frail appearing HENMT: COMMON NORMALS: normocephalic, atraumatic and Normal external nose present HEAD & SCALP: normocephalic and atraumatic FACE & SINUS: normal facial exam and face symmetric NOSE: Normal external nose present Eye: COMMON NORMALS: Equal, round and reactive pupils present and EOMs intact bilaterally PUPIL: Yes Equal, round and reactive pupils present Neck/C-Spine: GENERAL: Yes trachea midline Chest: CHEST: Yes Symmetrical chest wall rise Resp: COMMON NORMALS: normal respiratory effort, No retractions, No use of accessory muscles and clear to auscultation bilaterally AUSCULTATION: clear to auscultation bilaterally Cardio: COMMON NORMALS: regular rate and regular rhythm RATE: regular rate RHYTHM: regular rhythm GI: COMMON NORMALS: Normal to inspection, nondistended, normoactive bowel sounds present Extremity: COMMON NORMALS: no pedal edema Neuro: BLAINE COMA SCALE: document GCS findings [place] coma scale eye opening: Spontaneous [place] coma scale verbal response: Orientated [place] coma scale motor response: Obey commands [place] coma scale total score: 15 S ENSORY EXAM: Yes extremities (intact) Psych: COMMON NORMALS: speech normal SPEECH: Yes normal speech Skin: COMMON NORMALS: no rashes or lesions noted GENERAL SKIN EXAM: no rashes or lesions noted Course 2 Vital Signs: Vital signs: Vital Signs Temperature 98.0 F 10/04/23 03:05 Pulse Rate 82 10/04/23 03:05 Respiratory Rate 18 10/04/23 03:05 Blood Pressure 135/88 10/04/23 03:05 Pulse Oximetry 96 10/04/23 03:05 Oxygen Delivery Me thod Room Air 10/03/23 22:08 MDM - Nausea/Vomiting/Diarrhea Medical Decision Making White blood cell count is 8. Hemoglobin is 16. Creatinine is 1. Lipase is 22. CRP is 11. Lactic acid is 1. She is feeling improved. She does have a history of obstruction. Will obtain KUB. Abdominal film show some dilated loops of small bowel. Because of this, CT was ordered. There is no small bowel obstruction. There Is an enteritis present . There is some suspicion of inflammatory bowel disease given prior picture that looks similar on previous imaging. She will be treated symptomatically. UTI is present urinalysis. She'll be treated for this. close out patient follow up. Lab Data 10/03/23 22:49 10/03/23 22:49 Radiology Impressions KUB X-Ray 10/04/23 00:07 IMPRESSION: Two dilated loops of small bowel projecting over the upper abdomen, indeterminate for early small bowel obstruction given otherwise unremarkable bowel gas pattern. Abdomen/Pelvis CT 10/04/23 00:15 IMPRESSION: Similar distribution of small bowel wall thickening extending to the terminal ileum compared to 06/14/2023, suspicious for inflammatory bowel disease. Slightly increased distention of inflamed bowel loops compared to prior but without convincing transition point to suggest bowel obstruction. COMMENTS: Consistent with the [employer]'s Incidental Findings Committee white paper (J Am Giuliano Radiol 2018): Any incidental renal lesion less than 1 cm or classified as too small to characterize, or any incidental cystic renal lesion characterized as simple-appearing, is likely benign. No follow-up imaging is recommended for these lesions per consensus recommendations based on imaging criteria. Laboratory Results WBC 8.24 10^3/uL (3.29-11.43) 10/03/23 22:49 RBC 5.99 10^6/uL (3.85-5.65) H 10/03/23 22:49 Hgb 16.10 g/dL (11.27-16.99) 10/03/23 22:49 Hct 49.2 % (36-47) H 10/03/23 22:49 MCV 82.1 fl (85-98) L 10/03/23 22:49 MCH 26.9 pg (27-33) L 10/03/23 22:49 MCHC 32.7 g/dL (30-55) 10/03/23 22:49 RDW 13.0 % (12.1-15.1) 10/03/23 22:49 Plt Count 247 10^3/cmm (157-399) 10/03/23 22:49 MPV 11.9 fL (7.4-10.4) H 10/03/23 22:49 Neut % (Auto) 71.8 % 10/03/23 22:49 Lymph % (Auto) 20.8 % 10/03/23 22:49 [place] % (Auto) 5.7 % 10/03/23 22:49 Eos % (Auto) 1.3 % 10/03/23 22:49 Baso % (Auto) 0.2 % 10/03/23 22:49 Neut # (Auto) 5.91 10^3/uL (1.8-7.7) 10/03/23 22:49 Lymph # (Auto) 1.7 10^3/uL (0.8-4.8) 10/03/23 22:49 [place] # (Auto) 0.5 10^3/uL (0.2-0.9) 10/03/23 22:49 Eos # (Auto) 0.1 10^3/uL (0.0-0.8) 10/03/23 22:49 Baso # (Auto) 0.0 10^3/uL (0.0-0.1) 10/03/23 22:49 Nucleated RBC % (auto) 0 % 10/03/23 22:49 Nucleated RBCs # 0.0 /100WBC 10/03/23 22:49 Sodium 138 mmol/L (136-145) 10/03/23 22:49 Potassium 4.8 mmol/L (3.5-5.1) 10/03/23 22:49 Chloride 101 mmol/L (98-107) 10/03/23 22:49 Carbon Dioxide 25 mmol/L (22-29) 10/03/23 22:49 Anion Gap 16.8 (5-19) 10/03/23 22:49 BUN 12 mg/dL (6-20) 10/03/23 22:49 Creatinine 1.0 mg/dL (0.5-0.9) H 10/03/23 22:49 GFR Calculation 57.1 mL/min (90-130) L 10/03/23 22:49 Glucose 106 mg/dL (65-115) 10/03/23 22:49 Calculated Osmolality 286 mOsm/kg (285-295) 10/03/23 22:49 Lactic Acid 1.0 mmol/L (0.5-2.2) 10/03/23 22:44 Calcium 10.0 mg/dL (8.5-10.5) 10/03/23 22:49 Total Bilirubin 0.4 mg/dL (0.15-1.2) 10/03/23 22:49 AST 15 U/L (0-32) 10/03/23 22:49 ALT 15 U/L (0-33) 10/03/23 22:49 Alkaline Phosphatase 115 U/L (35-105) H 10/03/23 22:49 C-Reactive Protein 10.8 mg/L (0.0-4.9) H 10/03/23 22:49 Total Protein 7.5 g/dL (6.6-8.7) 10/03/23 22:49 Albumin 4.4 g/dL (3.5-5.2) 10/03/23 22:49 Globulin 3.1 g/dL (1.3-4.6) 10/03/23 22:49 Lipase 22 U/L (13-60) 10/03/23 22:49 Urine Color Yellow (Yellow) 10/03/23 23:45 Urine Appearance Hazy (CLEAR) A 10/03/23 23:45 Urine pH 5 (5-7) 10/03/23 23:45 Ur Specific [place] 1.025 (1.005-1.030) 10/03/23 23:45 Urine Protein 1+ (Negative) H 10/03/23 23:45 Urine Glucose (UA) Norm (Normal) 10/03/23 23:45 Urine Ketones 1+ (Negative) H 10/03/23 23:45 Urine Blood Neg (Negative) 10/03/23 23:45 Urine Nitrate Positive (Negative) H 10/03/23 23:45 Urine Bilirubin Neg (Negative) 10/03/23 23:45 Urine Urobilinogen Neg mg/dL (Negative) 10/03/23 23:45 Ur Leukocyte Esterase 1+ (Negative) H 10/03/23 23:45 Urine RBC 15-25 /hpf (0-2) H 10/03/23 23:45 Urine WBC 25-40 /hpf (0-5) H 10/03/23 23:45 Ur Squamous Epith Cells 15-25 /hpf (0-5) H 10/03/23 23:45 Amorphous Sediment Not Reportable 10/03/23 23:45 Urine Bacteria 3+ /hpf (NONE) H 10/03/23 23:45 Influenza Type A Ag negative (Negative) 10/03/23 23:50 Influenza Type B Ag negative (Negative) 10/03/23 23:50 SARS-CoV-2 Ag (Rapid) negative (Negative) 10/03/23 23:50 All radiology interpretation(s) finalized by discharge Discharge Plan Discharge Patient Disposition: Home Clinical Impression: Enteritis, UTI (urinary tract infection) Condition: Stable Prescriptions: New ondansetron 4 mg tablet,disintegrating 4 mg PO Q6H PRN (Reason: nausea and vomiting) Qty: 14 0RF Macrobid 100 mg capsule 100 mg PO BID 7 Days Qty: 14 0RF Rx Instructions: must administer with a meal/food No Action potassium chloride 10 mEq capsule, extended release PO fluconazole 150 mg tablet PO hydrocodone-acetaminophen 5-325 mg tablet PO meloxicam 15 mg tablet PO cephalexin 500 mg capsule PO folic acid 1 mg tablet PO furosemide 20 mg tablet PO doxycycline hyclate 100 mg tablet PO Aimovig Autoinjector 140 mg/mL auto-injector See Rx Instructions .ROUTE .COMPLEX Qty: 1 3RF Dose Instruction: INJECT ONE PEN SUBCUTANEOUSLY ONCE PER MONTH FOR MIGRAINES Rx Instructions: INJECT ONE PEN SUBCUTANEOUSLY ONCE PER MONTH FOR MIGRAINES sertraline [Zoloft] 50 mg tablet 50 mg PO .morning Qty: 30 3RF Rx Instructions: Take one tablet every morning quetiapine [Seroquel] 50 mg tablet 50 mg PO BEDTIME Qty: 30 3RF Rx Instructions: Take one tablet at bedtime sumatriptan succinate [Imitrex] 100 mg tablet See Rx Instructions PO .COMPLEX Qty: 90 3RF Rx Instructions: take 1 tab at onset of headache; if no relief, may repeat 1 tab after at least 2 hrs; max = 2 tabs/24 hrs PO carvedilol 25 mg tablet 25 mg PO BID Qty: 180 3RF psyllium husk [Fiber (psyllium husk)] 0.4 gram Capsule 1.2 g PO DAILY pantoprazole 40 mg tablet,delayed release (DR/EC) 40 mg PO QAM acyclovir 800 mg tablet 800 mg PO TID PRN (Reason: BREAKOUTS) pregabalin 100 mg capsule 100 mg PO Q12H ondansetron 4 mg tablet,disintegrating 4 mg PO Q8H PRN (Reason: nausea and vomiting) Qty: 14 0RF Discharge Orders: Discharge ED (Routine); Ordered 10/04/23 Ordered By: Lul Minor Referrals: Roseanne Marin PA [Primary Care Provider] - 1-3 days Patient Instructions: Urinary Tract Infection in Women (ED), Enteritis (ED), Opioid Safety, Pain Management Activity Restrictions/Additional Instructions: Follow a liquid diet for the next 24 hours, then increase as tolerated. Use nausea medication every 4 hours while awake whether nauseated or not for the first 24 hours, then as needed following. Antibiotics as directed for bladder infection. Return for problems. Coding Level of Care Code ED Optical Glass Sawyer for 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
--- NOTE | 2023-10-04 00:07 | XRR_ITS ---
PROCEDURE INFORMATION: Exam: XR Abdomen Exam date and time: 10/04/2023 12:10 AM Age: 58 years old Clinical indication: Nausea and vomiting; Abdominal pain; Generalized; Prior surgery; Surgery date: 6+ months; Surgery type: Mastectomy with aug. Appy. Csection. Hysterectomy. Hernia repair. Multiple ashesion procedures. Patient HX: Abd pain with n/v/d. History of obstruction. ; Additional info: Vomiting history of bowel obstruction TECHNIQUE: Imaging protocol: Radiologic exam of the abdomen. Views: Frontal supine view of the abdomen. 1 View. COMPARISON: CR XR abdomen min 2V [id number] 06/30/2023 1:31 PM FINDINGS: Gastrointestinal tract: Two dilated loops of small bowel projecting over the upper abdomen. Otherwise unremarkable bowel gas pattern. Bones/joints: No acute osseous abnormality. XR/XR KUB portable [id number] IMPRESSION: Two dilated loops of small bowel projecting over the upper abdomen, indeterminate for early small bowel obstruction given otherwise unremarkable bowel gas pattern.
[2023-10-04 00:11] LABS: Add Urine Microscopic? YES; Bilirubin Urine Neg (Negative); Blood Urine Neg (Negative); Glucose Urine UA Norm (Normal); Ketones Urine 1+ (Negative); Leukocyte Esterase Urine 1+ (Negative); Nitrate Urine Positive (Negative); Protein Urine 1+ (Negative); Specific Gravity, Urine 1.025 (1.005-1.030); Urine Appearance Hazy (CLEAR); Urine Color Yellow (Yellow); Urobilinogen Urine Neg (Negative); pH Urine 5 (5-7)
[2023-10-04 00:13] LABS: Bacteria Urine 3+ /hpf; RBC Urine 15-25 /hpf (0-2); Squamous Epithelial Cell Urine 15-25 /hpf (0-5); WBC Urine 25-40 /hpf (0-5)
[2023-10-04 00:14] LABS: Add Urine Culture? No
--- NOTE | 2023-10-04 00:15 | CTR_ITS ---
PROCEDURE INFORMATION: Exam: CT Abdomen And Pelvis With Contrast Exam date and time: 10/04/2023 12:27 AM Age: 58 years old Clinical indication: Nausea and vomiting; Abdominal pain; Generalized; Prior surgery; Surgery date: 6+ months; Surgery type: Mastectomy with aug. Appy. Csection. Hysterectomy. Hernia repair. Multiple adhesion procedures. Patient HX: Abd pain with n/v/d. History of obstruction. ; Additional info: Abdominal pain vomiting TECHNIQUE: Imaging protocol: Computed tomography of the abdomen and pelvis with contrast. Radiation optimization: All CT scans at this facility use at least one of these dose optimization techniques: automated exposure control; mA and/or kV adjustment per patient size (includes targeted exams where dose is matched to clinical indication); or iterative reconstruction. Contrast material: OMNI 350; Contrast volume: 100 ml; Contrast route: INTRAVENOUS (IV); REPORTING DATA: Count of CT and Cardiac NM exams in prior 12 months: This patient has received 3 known CTs and 0 known cardiac nuclear medicine studies in the 12 months prior to the current study. COMPARISON: CT abdomen pelvis wo con [id number] 06/14/2023 12:31 PM RADIATION DOSE METRICS: Total DLP (mGy-cm): 699.01 FINDINGS: Lungs: Calcified granulomas in the right lower lobe. Liver: Unremarkable. Gallbladder and bile ducts: Post cholecystectomy. Pancreas: Unremarkable. Spleen: Unremarkable. Adrenal glands: Unremarkable. Kidneys and ureters: Renal cyst. Stomach and bowel: Distended stomach. Prominent wall thickening of multiple loops small bowel extending to the terminal ileum with areas of mural stratification and submucosal fatty deposition. This is similar in distribution compared to the 06/14/2023 exam but with areas of slightly increased bowel dilation compared to prior. Appendix: Appendix not definitely visualized, but no inflammatory changes in the right lower quadrant in the expected location of the appendix. Intraperitoneal space: Unremarkable. Vasculature: Mild atherosclerotic disease in the abdomen and pelvis. Lymph nodes: Unremarkable. Urinary bladder: Underdistended bladder. Reproductive: Post hysterectomy. Bones/joints: No acute osseous abnormality. Soft tissues: Unremarkable. Other findings: Trace fluid in the pelvis. CT/CT abdomen pelvis w con* [id number] IMPRESSION: Similar distribution of small bowel wall thickening extending to the terminal ileum compared to 06/14/2023, suspicious for inflammatory bowel disease. Slightly increased distention of inflamed bowel loops compared to prior but without convincing transition point to suggest bowel obstruction. COMMENTS: Consistent with the [employer] [employer]'s Incidental Findings Committee white paper (J Am Giuliano Radiol 2018): Any incidental renal lesion less than 1 cm or classified as too small to characterize, or any incidental cystic renal lesion characterized as simple-appearing, is likely benign. No follow-up imaging is recommended for these lesions per consensus recommendations based on imaging criteria.
[2023-10-04 00:16] LABS: Influenza A by IFA negative (Negative); Influenza B by IFA negative (Negative); SARS Covid-2 Antigen negative (Negative)
[2023-10-04] MEDS: iohexol 350 mg/mL 500 mL Btl (per mL) IV (00:31)
[2023-10-04] MEDS: ketorolac 30 mg/mL INJ 15 MG IVP (02:57)
[2023-10-04] MEDS: metoclopramide 5 mg/mL SDV 2 mL 10 MG IVP (02:57)
[2023-10-04 03:05] VITALS: BP 135/88; PULSE 82; RESP 18; TEMP 36.7; O2SAT 96
== END 2023-10-04 03:06 | disposition home or self-care (01) ==
PROVIDERS: Emergency Provider Emergency Medicine; PCP Physician Assistant
DX: K52.9 Noninfective gastroenteritis and colitis, unspecified (principal); N39.0 Urinary tract infection, site not specified; Z11.52 Encounter for screening for COVID-19; I10 Essential (primary) hypertension; Z85.3 Personal history of malignant neoplasm of breast
CPT/HCPCS: 74018; 74177; 80053; 81001; 81003; 83605; 83690; 85025; 86140; 87426; 87804; 96374; 96375; 99285; J1885; J2405; J2765; J7030; Q9967

== ENCOUNTER → 2023-10-12 10:33 | Outpatient (BNVA) | payer MEDICARE, MEDICAID, SELFPAY ==
[2023-10-05 11:47] VITALS: BP 131/76; BMI 30.5
== END ==
PROVIDERS: PCP Physician Assistant; Visit Provider Internal Medicine Cardiovascular Disease
DX: R00.0 Tachycardia, unspecified (principal); I10 Essential (primary) hypertension; F60.3 Borderline personality disorder; F33.3 Major depressive disorder, recurrent, severe with psychotic symptoms
CPT/HCPCS: 99214

== ENCOUNTER 2023-11-03 16:49 | Emergency (ER) | payer MEDICARE, MEDICAID, SELFPAY ==
[2023-10-05 11:47] VITALS: BP 131/76; BMI 30.5
[2023-11-03 16:53] VITALS: BP 118/70; PULSE 99; RESP 17; TEMP 37; O2SAT 96
[2023-11-03 17:27] LABS: Basophils % 0.4 %; Eosinophils # 0.1 10^3/uL (0.0-0.8); Eosinophils % 1.3 %; Hematocrit 45.3 % (36-47); Lymphocytes # 2.6 10^3/uL (0.8-4.8); Mean Corpuscular HGB Conc 33.1 g/dL (30-55); Mean Corpuscular Hemoglobin 27.2 pg (27-33); Mean Corpuscular Volume 82.2 fl (85-98); Mean Platelet Volume 12.3 fL (7.4-10.4); Monocytes # 0.5 10^3/uL (0.2-0.9); Neutrophils # 3.84 10^3/uL (1.8-7.7); Neutrophils % 53.7 %; Nucleated Red Blood Cells % 0 %; Platelet Count 215 10^3/cmm (157-399); Red Blood Count 5.51 10^6/uL (3.85-5.65); Red Cell Distribution Width 14.5 % (12.1-15.1); White Blood Count 7.14 10^3/uL (3.29-11.43)
--- NOTE | 2023-11-03 17:55 | W.ED.ABDPA2 ---
Documented by User: Moy Galvan DO 11/09/23 06:10 HPI - Abdominal Pain General: Chief Complaint: Abdominal Pain Stated Complaint: abd pain Time Seen by Provider: 11/03/23 17:32 Source: patient Mode of arrival: ambulatory History of Present Illness: 58-year-old female presents emergency room complaining of abdominal pain and bloating. Began yesterday around 2 in the afternoon she said several episodes of loose stools she denies any medic easy melena hematemesis or coffee-ground emesis she has vomited several times bilious like vomit she has not had a bowel movement however since this morning at 3:30 AM. She has had previous episodes of partial bowel obstructions multiple times including hospitalizations and 1 episode that she required lysis of adhesions to release transition point that was several years ago at this facility done by Dr. Eck. VALE elicited complaint: abdominal pain Pertinent past history: other (Previous bowel obstructions, lysis of adhesions abdomen) Onset (ago): day(s) Pain Consistency: constant Location: Diffuse Quality: cramping Exacerbating factors: nothing Relieving factors: nothing Associated Symptoms: Reports bloating, change in stool character, GI cramping, diarrhea, nausea and vomiting; Denies anorexia, belching, change in bowel habits, chills, coffee ground emesis, constipation, dyspepsia, dysuria, excessive flatus, fever(s), heartburn, hematochezia, hematuria, hematemesis, fecal incontinence, loose stools, melena, poor appetite and syncope Review of Systems Const: Denies: fever(s) or chills Card: Denies: syncope Resp: Denies: dyspnea GI: Reports: abdominal pain, nausea, vomiting, diarrhea, bloating, GI cramping and change in stool character; Denies: hematemesis, coffee ground emesis, heartburn, constipation, belching, excessive flatus, fecal incontinence, change in bowel habits, hematochezia or melena : Denies: dysuria or hematuria Musc: Denies: neck pain or back pain Skin/Breast: Denies: rash PFS ED PFSH: Medical History History of Holter monitoring 04/2023 Baseline rhythm is sinus rhythm. HR ranged from 56-135, avg 80 bpm, nnspecified patient symptom correlated with isolated PVC History of electroencephalogram 05/2023 IMPRESSION: This was a normal routine EEG, awake and drowsy and asleep, with no behavioral or electrographic epileptiform activity. A normal EEG does not exclude a diagnosis of epilepsy. Small bowel obstruction DCIS (ductal carcinoma in situ) ER/[place] negative, tamoxifen History of cardiac arrest Benign essential HTN Breast cancer Chronic migraine without aura, intractable, with status migrainosus Recurrent syncope History of colon polyps Psychiatric care Inappropriate sinus tachycardia Malignant hypertension History of malignant melanoma Fear of insects (Unknown) Specifically tics Major depressive disorder, recurrent, severe with psychotic symptoms [facility] managing Lumbar radiculitis Herpes genitalia Hot flashes Irritable bowel disease Depression with anxiety HTN (hypertension) with goal to be determined Borderline personality disorder Functional neurological symptom disorder with attacks or seizures Dr. Chepe Pickering-- [facility] Surgical History History of appendectomy (01/2021) History of exploratory laparotomy (01/2021) with lysis of adhesions, performed due to SBO Hx of bilateral mastectomy History of colonoscopy Intra-abdominal adhesions (~10/2020) adhesiolysis / incidental appendectomy-- at same time as bowel obstruction H/O tubal ligation (~2008) Hx of abdominoplasty (~2009) History of augmentation of both breasts 2013 silicone implants, removed at time of mastectomies Hx of section (~2008) x 1 Hx of hernia repair (~2012) ventral (patient thinks mesh was used) Hx of hysterectomy (~2008) CHRISTINA-- ovaries spared. Hx of decompressive lumbar laminectomy ---2014 L5-S1 [facility] IN [place], [place] ---10/20/2020 Revision; Dr Dalia ALBERT Family History Mother Breast cancer dx age unknown Hypertension Grandmother Breast cancer Maternal--dx age 60's Hypertension Maternal and Paternal Sister No problems noted. Daughter Uterine cancer dx age 28 Father Diabetes Hypertension Stroke Grandfather Hypertension maternal and Paternal Denies family history of Colon cancer Ovarian cancer Social History Smoking and tobacco/nicotine status: never used tobacco/nicotine Alcohol intake: current Alcohol intake frequency: holidays/special occasions only Alcohol type: wine Substance/Drug Use: never Do you think of yourself as: Straight/Heterosexual Physical Exam Const: GENERAL APPEARANCE: cooperative and comfortable ORIENTATION/CONSCIOUSNESS: Yes awake, Yes oriented to person, Yes oriented to place and Yes oriented to time HENMT: COMMON NORMALS: normocephalic, atraumatic and hearing grossly normal bilaterally HEAD & SCALP: normocephalic and atraumatic Resp: COMMON NORMALS: normal respiratory effort, No retractions, No use of accessory muscles and clear to auscultation bilaterally AUSCULTATION: clear to auscultation bilaterally Cardio: COMMON NORMALS: regular rate, regular rhythm and No murmurs present (Cardio) RATE: regular rate RHYTHM: regular rhythm GI: COMMON NORMALS: No hepatosplenomegaly present AUSCULTATION: Yes Absent bowel sounds PALPATION: Yes Tenderness to palpation present (GI), No Guarding due to palpation present (GI) and Yes No hepatosplenomegaly present Extremity: COMMON NORMALS: normal to inspection, capillary refill normal, no clubbing, cyanosis or edema, no calf tenderness and no pedal edema Neuro: SENSORIUM/ORIENTATION: Yes oriented to person, Yes oriented to place and Yes oriented to time Skin: COMMON NORMALS: no rashes or lesions noted GENERAL SKIN EXAM: no rashes or lesions noted Course Vital Signs: Vital signs: Vital Signs Temperature 98.6 F 11/03/23 16:53 Pulse Rate 88 11/03/23 20:17 Respiratory Rate 18 11/03/23 18:11 Blood Pressure 126/83 11/03/23 20:17 Pulse Oximetry 96 11/03/23 20:17 Oxygen Delivery Me thod Room Air 11/03/23 18:11 MDM - Abdominal Pain Medical Decision Making Care signed out to Dr. Russo at change of shift. See final notes for diagnosis and disposition. Lab Data 11/03/23 17:11 11/03/23 17:11 Labs/Radiology: Radiology Impressions Abdomen/Pelvis CT 11/03/23 18:00 IMPRESSION: 1. Prominent fluid in the small bowel and colon with diffuse submucosal fat deposition in the small bowel, findings are concerning for underlying inflammatory bowel disease or another enteritis with perhaps an active component, please correlate clinically. 2. Small amount of nonspecific fluid in the pelvis. 3. Hepatic steatosis. 4. Cholecystectomy. 5. Left kidney nonobstructing calyceal stone. Laboratory Results WBC 7.14 10^3/uL (3.29-11.43) 11/03/23 17:11 RBC 5.51 10^6/uL (3.85-5.65) 11/03/23 17:11 Hgb 15.00 g/dL (11.27-16.99) 11/03/23 17:11 Hct 45.3 % (36-47) 11/03/23 17:11 MCV 82.2 fl (85-98) L 11/03/23 17:11 MCH 27.2 pg (27-33) 11/03/23 17:11 MCHC 33.1 g/dL (30-55) 11/03/23 17:11 RDW 14.5 % (12.1-15.1) 11/03/23 17:11 Plt Count 215 10^3/cmm (157-399) 11/03/23 17:11 MPV 12.3 fL (7.4-10.4) H 11/03/23 17:11 Neut % (Auto) 53.7 % 11/03/23 17:11 Lymph % (Auto) 37.0 % 11/03/23 17:11 Holt % (Auto) 7.0 % 11/03/23 17:11 Eos % (Auto) 1.3 % 11/03/23 17:11 Baso % (Auto) 0.4 % 11/03/23 17:11 Neut # (Auto) 3.84 10^3/uL (1.8-7.7) 11/03/23 17:11 Lymph # (Auto) 2.6 10^3/uL (0.8-4.8) 11/03/23 17:11 Holt # (Auto) 0.5 10^3/uL (0.2-0.9) 11/03/23 17:11 Eos # (Auto) 0.1 10^3/uL (0.0-0.8) 11/03/23 17:11 Baso # (Auto) 0.0 10^3/uL (0.0-0.1) 11/03/23 17:11 Nucleated RBC % (auto) 0 % 11/03/23 17:11 Nucleated RBCs # 0.0 /100WBC 11/03/23 17:11 Sodium 140 mmol/L (136-145) 11/03/23 17:11 Potassium 3.8 mmol/L (3.5-5.1) 11/03/23 17:11 Chloride 102 mmol/L (98-107) 11/03/23 17:11 Carbon Dioxide 26 mmol/L (22-29) 11/03/23 17:11 Anion Gap 15.8 (5-19) 11/03/23 17:11 BUN 21 mg/dL (6-20) H 11/03/23 17:11 Creatinine 1.4 mg/dL (0.5-0.9) H 11/03/23 17:11 GFR Calculation 38.8 mL/min (90-130) L 11/03/23 17:11 Glucose 100 mg/dL (65-115) 11/03/23 17:11 Calculated Osmolality 293 mOsm/kg (285-295) 11/03/23 17:11 Lactic Acid 0.8 mmol/L (0.5-2.2) 11/03/23 17:11 Calcium 9.5 mg/dL (8.5-10.5) 11/03/23 17:11 Total Bilirubin 0.6 mg/dL (0.15-1.2) 11/03/23 17:11 AST 11 U/L (0-32) 11/03/23 17:11 ALT 11 U/L (0-33) 11/03/23 17:11 Alkaline Phosphatase 90 U/L (35-105) 11/03/23 17:11 C-Reactive Protein 3.8 mg/L (0.0-4.9) 11/03/23 17:11 Total Protein 7.3 g/dL (6.6-8.7) 11/03/23 17:11 Albumin 4.1 g/dL (3.5-5.2) 11/03/23 17:11 Globulin 3.2 g/dL (1.3-4.6) 11/03/23 17:11 Lipase 37 U/L (13-60) 11/03/23 17:11 Urine Color Dark yellow (Yellow) 11/03/23 18:07 Urine Appearance Sl hazy (CLEAR) A 11/03/23 18:07 Urine pH 5 (5-7) 11/03/23 18:07 Ur Specific [place] 1.030 (1.005-1.030) 11/03/23 18:07 Urine Protein Trace (Negative) 11/03/23 18:07 Urine Glucose (UA) Norm (Normal) 11/03/23 18:07 Urine Ketones 1+ (Negative) H 11/03/23 18:07 Urine Blood Neg (Negative) 11/03/23 18:07 Urine Nitrate Negative (Negative) 11/03/23 18:07 Urine Bilirubin 1+ (Negative) H 11/03/23 18:07 Urine Urobilinogen 1 mg/dL (Negative) H 11/03/23 18:07 Ur Leukocyte Esterase Negative (Negative) 11/03/23 18:07 Urine RBC 0-4 /hpf (0-2) H 11/03/23 18:07 Urine WBC 10-15 /hpf (0-5) H 11/03/23 18:07 Ur Squamous Epith Cells 10-15 /hpf (0-5) H 11/03/23 18:07 Calcium Oxalate Crystal 25-40 /hpf H 11/03/23 18:07 Amorphous Sediment Not Reportable 11/03/23 18:07 Urine Bacteria Trace /hpf (NONE) 11/03/23 18:07 Hyaline Casts 0-4 /lpf H 11/03/23 18:07 Urine Mucus 1+ /hpf 11/03/23 18:07 Discharge Plan Discharge Patient Disposition: Home Clinical Impression: Enteritis Abdominal pain Qualifiers: Abdominal location: generalized Qualified Code(s): R10.84 - Generalized abdominal pain Condition: Stable Prescriptions: No Action potassium chloride 10 mEq capsule, extended release PO fluconazole 150 mg tablet PO hydrocodone-acetaminophen 5-325 mg tablet PO meloxicam 15 mg tablet PO cephalexin 500 mg capsule PO folic acid 1 mg tablet PO furosemide 20 mg tablet PO doxycycline hyclate 100 mg tablet PO Aimovig Autoinjector 140 mg/mL auto-injector See Rx Instructions .ROUTE .COMPLEX Qty: 1 3RF Dose Instruction: INJECT ONE PEN SUBCUTANEOUSLY ONCE PER MONTH FOR MIGRAINES Rx Instructions: INJECT ONE PEN SUBCUTANEOUSLY ONCE PER MONTH FOR MIGRAINES sertraline [Zoloft] 50 mg tablet 50 mg PO .morning Qty: 30 3RF Rx Instructions: Take one tablet every morning quetiapine [Seroquel] 50 mg tablet 50 mg PO BEDTIME Qty: 30 3RF Rx Instructions: Take one tablet at bedtime sumatriptan succinate [Imitrex] 100 mg tablet See Rx Instructions PO .COMPLEX Qty: 90 3RF Rx Instructions: take 1 tab at onset of headache; if no relief, may repeat 1 tab after at least 2 hrs; max = 2 tabs/24 hrs PO carvedilol 25 mg tablet 25 mg PO BID Qty: 180 3RF psyllium husk [Fiber (psyllium husk)] 0.4 gram Capsule 1.2 g PO DAILY pantoprazole 40 mg tablet,delayed release (DR/EC) 40 mg PO QAM acyclovir 800 mg tablet 800 mg PO TID PRN (Reason: BREAKOUTS) pregabalin 100 mg capsule 100 mg PO Q12H ondansetron 4 mg tablet,disintegrating 4 mg PO Q8H PRN (Reason: nausea and vomiting) Qty: 14 0RF ondansetron 4 mg tablet,disintegrating 4 mg PO Q6H PRN (Reason: nausea and vomiting) Qty: 14 0RF Discharge Orders: Discharge ED (Routine); Ordered 11/03/23 Ordered By: Ruben Russo Referrals: Roseanne Marin PA [Primary Care Provider] - 1 week Patient Instructions: Abdominal Pain (ED), Enteritis (ED) Activity Restrictions/Additional Instructions: Activity restrictions/additional instructions: Thank you for choosing [facility] for your healthcare needs today. Please realize that you were seen in the emergency department and that we are providing you with an emergency medical screening exam and this may not be a complete and all exclusive of all testing and/or medical workup we may need to determine your element or severity of your illness. It is very important that you follow-up as instructed with your primary care provider or specialist for the additional evaluation and to discuss your medical treatment plan. You may return to the emergency department should you have concerns or if your condition changes or worsens in any way. Coding Level of Care Code ED Clerical Adjudicator for 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 Documented by User: Ruben Russo DO 11/03/23 20:11 HPI - Abdominal Pain General: Chief Complaint: Abdominal Pain Stated Complaint: abd pain Time Seen by Provider: 11/03/23 17:32 [facility] ED PFSH: Medical History History of Holter monitoring 04/2023 Baseline rhythm is sinus rhythm. HR ranged from 56-135, avg 80 bpm, nnspecified patient symptom correlated with isolated PVC History of electroencephalogram 05/2023 IMPRESSION: This was a normal routine EEG, awake and drowsy and asleep, with no behavioral or electrographic epileptiform activity. A normal EEG does not exclude a diagnosis of epilepsy. Small bowel obstruction DCIS (ductal carcinoma in situ) ER/[place] negative, tamoxifen History of cardiac arrest Benign essential HTN Breast cancer Chronic migraine without aura, intractable, with status migrainosus Recurrent syncope History of colon polyps Psychiatric care Inappropriate sinus tachycardia Malignant hypertension History of malignant melanoma Fear of insects (Unknown) Specifically tics Major depressive disorder, recurrent, severe with psychotic symptoms [facility] managing Lumbar radiculitis Herpes genitalia Hot flashes Irritable bowel disease Depression with anxiety HTN (hypertension) with goal to be determined Borderline personality disorder Functional neurological symptom disorder with attacks or seizures Dr. Chepe Pickering-- [facility] Surgical History History of appendectomy (01/2021) History of exploratory laparotomy (01/2021) with lysis of adhesions, performed due to SBO Hx of bilateral mastectomy History of colonoscopy Intra-abdominal adhesions (~10/2020) adhesiolysis / incidental appendectomy-- at same time as bowel obstruction H/O tubal ligation (~2008) Hx of abdominoplasty (~2009) History of augmentation of both breasts 2013 silicone implants, removed at time of mastectomies Hx of section (~2008) x 1 Hx of hernia repair (~2012) ventral (patient thinks mesh was used) Hx of hysterectomy (~2008) CHRISTINA-- ovaries spared. Hx of decompressive lumbar laminectomy ---2014 L5-S1 [facility] IN [place], [place]. ---10/20/2020 Revision; Dr Dalia ALBERT Family History Mother Breast cancer dx age unknown Hypertension Grandmother Breast cancer Maternal--dx age 60's Hypertension Maternal and Paternal Sister No problems noted. Daughter Uterine cancer dx age 28 Father Diabetes Hypertension Stroke Grandfather Hypertension maternal and Paternal Denies family history of Colon cancer Ovarian cancer Social History Smoking and tobacco/nicotine status: never used tobacco/nicotine Alcohol intake: current Alcohol intake frequency: holidays/special occasions only Alcohol type: wine Substance/Drug Use: never Do you think of yourself as: Straight/Heterosexual Course Vital Signs: Vital signs: Vital Signs Temperature 98.6 F 11/03/23 16:53 Pulse Rate 88 11/03/23 20:17 Respiratory Rate 18 11/03/23 18:11 Blood Pressure 126/83 11/03/23 20:17 Pulse Oximetry 96 11/03/23 20:17 Oxygen Delivery Me thod Room Air 11/03/23 18:11 MDM - Abdominal Pain Medical Decision Making Care signed out to Dr. Russo at change of shift. See final notes for diagnosis and disposition. Lab work reviewed as well as CT scan of the abdomen pelvis with contrast that showed prominent fluid in the small bowel and colon concerning for underlying IBS or other enteritis no bowel obstruction noted lab work revealed normal white count, otherwise only benign findings. These results was explained to the patient patient be discharged with diagnosis of enteritis. Lab Data 11/03/23 17:11 11/03/23 17:11 Labs/Radiology: Radiology Impressions Abdomen/Pelvis CT 11/03/23 18:00 IMPRESSION: 1. Prominent fluid in the small bowel and colon with diffuse submucosal fat deposition in the small bowel, findings are concerning for underlying inflammatory bowel disease or another enteritis with perhaps an active component, please correlate clinically. 2. Small amount of nonspecific fluid in the pelvis. 3. Hepatic steatosis. 4. Cholecystectomy. 5. Left kidney nonobstructing calyceal stone. Laboratory Results WBC 7.14 10^3/uL (3.29-11.43) 11/03/23 17:11 RBC 5.51 10^6/uL (3.85-5.65) 11/03/23 17:11 Hgb 15.00 g/dL (11.27-16.99) 11/03/23 17:11 Hct 45.3 % (36-47) 11/03/23 17:11 MCV 82.2 fl (85-98) L 11/03/23 17:11 MCH 27.2 pg (27-33) 11/03/23 17:11 MCHC 33.1 g/dL (30-55) 11/03/23 17:11 RDW 14.5 % (12.1-15.1) 11/03/23 17:11 Plt Count 215 10^3/cmm (157-399) 11/03/23 17:11 MPV 12.3 fL (7.4-10.4) H 11/03/23 17:11 Neut % (Auto) 53.7 % 11/03/23 17:11 Lymph % (Auto) 37.0 % 11/03/23 17:11 Holt % (Auto) 7.0 % 11/03/23 17:11 Eos % (Auto) 1.3 % 11/03/23 17:11 Baso % (Auto) 0.4 % 11/03/23 17:11 Neut # (Auto) 3.84 10^3/uL (1.8-7.7) 11/03/23 17:11 Lymph # (Auto) 2.6 10^3/uL (0.8-4.8) 11/03/23 17:11 Holt # (Auto) 0.5 10^3/uL (0.2-0.9) 11/03/23 17:11 Eos # (Auto) 0.1 10^3/uL (0.0-0.8) 11/03/23 17:11 Baso # (Auto) 0.0 10^3/uL (0.0-0.1) 11/03/23 17:11 Nucleated RBC % (auto) 0 % 11/03/23 17:11 Nucleated RBCs # 0.0 /100WBC 11/03/23 17:11 Sodium 140 mmol/L (136-145) 11/03/23 17:11 Potassium 3.8 mmol/L (3.5-5.1) 11/03/23 17:11 Chloride 102 mmol/L (98-107) 11/03/23 17:11 Carbon Dioxide 26 mmol/L (22-29) 11/03/23 17:11 Anion Gap 15.8 (5-19) 11/03/23 17:11 BUN 21 mg/dL (6-20) H 11/03/23 17:11 Creatinine 1.4 mg/dL (0.5-0.9) H 11/03/23 17:11 GFR Calculation 38.8 mL/min (90-130) L 11/03/23 17:11 Glucose 100 mg/dL (65-115) 11/03/23 17:11 Calculated Osmolality 293 mOsm/kg (285-295) 11/03/23 17:11 Lactic Acid 0.8 mmol/L (0.5-2.2) 11/03/23 17:11 Calcium 9.5 mg/dL (8.5-10.5) 11/03/23 17:11 Total Bilirubin 0.6 mg/dL (0.15-1.2) 11/03/23 17:11 AST 11 U/L (0-32) 11/03/23 17:11 ALT 11 U/L (0-33) 11/03/23 17:11 Alkaline Phosphatase 90 U/L (35-105) 11/03/23 17:11 C-Reactive Protein 3.8 mg/L (0.0-4.9) 11/03/23 17:11 Total Protein 7.3 g/dL (6.6-8.7) 11/03/23 17:11 Albumin 4.1 g/dL (3.5-5.2) 11/03/23 17:11 Globulin 3.2 g/dL (1.3-4.6) 11/03/23 17:11 Lipase 37 U/L (13-60) 11/03/23 17:11 Urine Color Dark yellow (Yellow) 11/03/23 18:07 Urine Appearance Sl hazy (CLEAR) A 11/03/23 18:07 Urine pH 5 (5-7) 11/03/23 18:07 Ur Specific [place] 1.030 (1.005-1.030) 11/03/23 18:07 Urine Protein Trace (Negative) 11/03/23 18:07 Urine Glucose (UA) Norm (Normal) 11/03/23 18:07 Urine Ketones 1+ (Negative) H 11/03/23 18:07 Urine Blood Neg (Negative) 11/03/23 18:07 Urine Nitrate Negative (Negative) 11/03/23 18:07 Urine Bilirubin 1+ (Negative) H 11/03/23 18:07 Urine Urobilinogen 1 mg/dL (Negative) H 11/03/23 18:07 Ur Leukocyte Esterase Negative (Negative) 11/03/23 18:07 Urine RBC 0-4 /hpf (0-2) H 11/03/23 18:07 Urine WBC 10-15 /hpf (0-5) H 11/03/23 18:07 Ur Squamous Epith Cells 10-15 /hpf (0-5) H 11/03/23 18:07 Calcium Oxalate Crystal 25-40 /hpf H 11/03/23 18:07 Amorphous Sediment Not Reportable 11/03/23 18:07 Urine Bacteria Trace /hpf (NONE) 11/03/23 18:07 Hyaline Casts 0-4 /lpf H 11/03/23 18:07 Urine Mucus 1+ /hpf 11/03/23 18:07 All radiology interpretation(s) finalized by discharge Discharge Plan Discharge Patient Disposition: Home Clinical Impression: Enteritis Abdominal pain Qualifiers: Abdominal location: generalized Qualified Code(s): R10.84 - Generalized abdominal pain Condition: Stable Prescriptions: No Action potassium chloride 10 mEq capsule, extended release PO fluconazole 150 mg tablet PO hydrocodone-acetaminophen 5-325 mg tablet PO meloxicam 15 mg tablet PO cephalexin 500 mg capsule PO folic acid 1 mg tablet PO furosemide 20 mg tablet PO doxycycline hyclate 100 mg tablet PO Aimovig Autoinjector 140 mg/mL auto-injector See Rx Instructions .ROUTE .COMPLEX Qty: 1 3RF Dose Instruction: INJECT ONE PEN SUBCUTANEOUSLY ONCE PER MONTH FOR MIGRAINES Rx Instructions: INJECT ONE PEN SUBCUTANEOUSLY ONCE PER MONTH FOR MIGRAINES sertraline [Zoloft] 50 mg tablet 50 mg PO .morning Qty: 30 3RF Rx Instructions: Take one tablet every morning quetiapine [Seroquel] 50 mg tablet 50 mg PO BEDTIME Qty: 30 3RF Rx Instructions: Take one tablet at bedtime sumatriptan succinate [Imitrex] 100 mg tablet See Rx Instructions PO .COMPLEX Qty: 90 3RF Rx Instructions: take 1 tab at onset of headache; if no relief, may repeat 1 tab after at least 2 hrs; max = 2 tabs/24 hrs PO carvedilol 25 mg tablet 25 mg PO BID Qty: 180 3RF psyllium husk [Fiber (psyllium husk)] 0.4 gram Capsule 1.2 g PO DAILY pantoprazole 40 mg tablet,delayed release (DR/EC) 40 mg PO QAM acyclovir 800 mg tablet 800 mg PO TID PRN (Reason: BREAKOUTS) pregabalin 100 mg capsule 100 mg PO Q12H ondansetron 4 mg tablet,disintegrating 4 mg PO Q8H PRN (Reason: nausea and vomiting) Qty: 14 0RF ondansetron 4 mg tablet,disintegrating 4 mg PO Q6H PRN (Reason: nausea and vomiting) Qty: 14 0RF Discharge Orders: Discharge ED (Routine); Ordered 11/03/23 Ordered By: Ruben Russo Referrals: Roseanne Marin PA [Primary Care Provider] - 1 week Patient Instructions: Abdominal Pain (ED), Enteritis (ED) Activity Restrictions/Additional Instructions: Activity restrictions/additional instructions: Thank you for choosing [facility] for your healthcare needs today. Please realize that you were seen in the emergency department and that we are providing you with an emergency medical screening exam and this may not be a complete and all exclusive of all testing and/or medical workup we may need to determine your element or severity of your illness. It is very important that you follow-up as instructed with your primary care provider or specialist for the additional evaluation and to discuss your medical treatment plan. You may return to the emergency department should you have concerns or if your condition changes or worsens in any way. Coding Level of Care Code ED Clerical Adjudicator for 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
[2023-11-03 17:56] LABS: Alanine Aminotransferase 11 U/L (0-33); Albumin Level 4.1 g/dL (3.5-5.2); Alkaline Phosphatase 90 U/L (35-105); Anion Gap 15.8 (5-19); Aspartate Amino Transferase 11 U/L (0-32); Blood Urea Nitrogen 21 mg/dL (6-20); Calcium 9.5 mg/dL (8.5-10.5); Carbon Dioxide 26 mmol/L (22-29); Chloride 102 mmol/L (98-107); Globulin 3.2 g/dL (1.3-4.6); Glomerular Filtration Rate 38.8 mL/min (90-130); Glucose 100 mg/dL (65-115); Lipase 37 U/L (13-60); Osmolality Calculated 293 mOsm/kg (285-295); Potassium 3.8 mmol/L (3.5-5.1); Sodium 140 mmol/L (136-145); Total Bilirubin 0.6 mg/dL (0.15-1.2); Total Protein 7.3 g/dL (6.6-8.7)
[2023-11-03 17:59] VITALS: BP 139/92; PULSE 91; RESP 18; O2SAT 94
--- NOTE | 2023-11-03 18:00 | CTR_ITS ---
PROCEDURE INFORMATION: Exam: CT Abdomen And Pelvis Without Contrast Exam date and time: 11/03/2023 6:12 PM Age: 58 years old Clinical indication: Abdominal pain; Generalized; Prior surgery; Surgery date: 6+ months; Surgery type: Appy, hyst, hernia TECHNIQUE: Imaging protocol: Computed tomography of the abdomen and pelvis without contrast. Radiation optimization: All CT scans at this facility use at least one of these dose optimization techniques: automated exposure control; mA and/or kV adjustment per patient size (includes targeted exams where dose is matched to clinical indication); or iterative reconstruction. COMPARISON: CT abdomen pelvis w con* [id number] 10/04/2023 12:27 AM RADIATION DOSE METRICS: Total DLP (mGy-cm): 546 FINDINGS: Liver: Hepatic steatosis. Gallbladder and bile ducts: Cholecystectomy. Pancreas: Normal. No ductal dilation. Spleen: Normal. No splenomegaly. Adrenal glands: Normal. No mass. Kidneys and ureters: Left kidney nonobstructing calyceal stone. Stomach and bowel: Prominent fluid in the small bowel and colon with diffuse submucosal fat deposition in the small bowel, findings are concerning for underlying inflammatory bowel disease or another enteritis with perhaps an active component, please correlate clinically. Appendix: No evidence of appendicitis. Intraperitoneal space: Unremarkable. No free air. No significant fluid collection. Vasculature: Unremarkable. No abdominal aortic aneurysm. Lymph nodes: Unremarkable. No enlarged lymph nodes. Urinary bladder: Unremarkable as visualized. Reproductive: Unremarkable as visualized. Bones/joints: Unremarkable. No acute fracture. Soft tissues: Unremarkable. Other findings: Small amount of nonspecific fluid in the pelvis. CT/CT abdomen pelvis con [id number] IMPRESSION: 1. Prominent fluid in the small bowel and colon with diffuse submucosal fat deposition in the small bowel, findings are concerning for underlying inflammatory bowel disease or another enteritis with perhaps an active component, please correlate clinically. 2. Small amount of nonspecific fluid in the pelvis. 3. Hepatic steatosis. 4. Cholecystectomy. 5. Left kidney nonobstructing calyceal stone.
[2023-11-03 18:11] VITALS: BP 130/83; PULSE 88; RESP 18; O2SAT 97
[2023-11-03 18:51] LABS: Urine Appearance SL Hazy (CLEAR); Urine Color Dark Yellow (Yellow)
[2023-11-03 18:52] LABS: Add Urine Microscopic? YES; Bacteria Urine TRACE /hpf; Bilirubin Urine 1+ (Negative); Blood Urine Neg (Negative); Glucose Urine UA Norm (Normal); Ketones Urine 1+ (Negative); Leukocyte Esterase Urine Negative (Negative); Nitrate Urine Negative (Negative); Protein Urine Trace (Negative); RBC Urine 0-4 /hpf (0-2); Urobilinogen Urine 1 mg/dL (Negative); pH Urine 5 (5-7)
[2023-11-03 18:53] LABS: Calcium Oxalate Crystals Urine 25-40 /hpf; Mucus Urine 1+ /hpf
[2023-11-03 18:55] LABS: Add Urine Culture? No; Hyaline Casts Urine 0-4 /lpf
[2023-11-03 19:07] VITALS: BP 118/71; PULSE 81; O2SAT 93
[2023-11-03 20:05] LABS: C Reactive Protein 3.8 mg/L (0.0-4.9); Lactic Sepsis W/Reflex 0.8 mmol/L (0.5-2.2)
--- NOTE | 2023-11-03 20:09 | PC.NURSE ---
Patient pressed call light and stated that she wanted to know results of tests and stated that she was wanting to leave as soon as possible. Patient's desires communicated to Dr Russo. Dr Russo instructed this nurse to explain to patient results, and that if patient was wanting to discharge, then discharge orders could be put in. Information communicated to this patient by this nurse and patient stated that she was ready to leave.
[2023-11-03 20:17] VITALS: BP 126/83; PULSE 88; O2SAT 96
== END 2023-11-03 20:18 | disposition home or self-care (01) ==
PROVIDERS: Emergency Medicine; Emergency Provider Family Medicine; PCP Physician Assistant
DX: K52.9 Noninfective gastroenteritis and colitis, unspecified (principal); I10 Essential (primary) hypertension; Z85.3 Personal history of malignant neoplasm of breast
CPT/HCPCS: 36415; 74176; 80053; 81001; 83605; 83690; 85025; 86140; 99284

== ENCOUNTER 2023-12-17 17:59 | Emergency (ER) | payer MEDICARE, MEDICAID, SELFPAY ==
[2023-10-05 11:47] VITALS: BP 131/76; BMI 30.5
[2023-12-17 18:17] VITALS: BP 162/76; PULSE 76; RESP 14; TEMP 36.7; O2SAT 97
--- NOTE | 2023-12-17 18:48 | ED_ITS ---
Documented by User: BRI House 12/17/23 19:57 HPI - Headache General: Chief Complaint: Headache Stated Complaint: Migraine Time Seen by Provider: 12/17/23 18:35 Source: patient Mode of arrival: ambulatory Limitations: no limitations History of Present Illness: Patient is a 58-year-old female past medical history of migraine headaches who presents to the emergency room complaining of headache onset last 2 days. Patient states she sees Dr. Powell for migraines in which she receives monthly Aimovig injections. She says that she is currently assisting a friend who is about to undergo heart surgery, but is also heavy smoker. She states that since being around secondhand smoke she has developed the onset of migraine symptoms. She reports associated nausea and neck pain, but denies any new symptoms such as blurred vision or vomiting. She states she normally receives a migraine cocktail which helps her symptoms. She denies any other symptoms at t his time. MD elicited complaint: migraine Pertinent past history: migraines Onset (ago): day(s) (2) Onset description: suddenly Location: down into neck and generalized Quality & Timing: throbbing, squeezing and constant Relieving factors: nothing Context: other (Exposure to secondhand tobacco) Associated symptoms: Reports nausea; Deny chest pain, fever(s), lightheadedness or rash Review of Systems General: Reports: 10 or more systems reviewed and unremarkable except in HPI and below Const: Denies: fever(s), chills or fatigue Eyes: Denies: change in vision ENMT: Denies: throat pain, ear or mastoid pain or nasal discharge Card: Denies: chest pain, palpitations, swelling of feet/ankles or lightheadedness Resp: Denies: dyspnea, productive cough or wheezing GI: Reports: nausea : Denies: flank pain, difficulty voiding, dysuria or urinary frequency Musc: Reports: neck pain; Denies: back pain or joint pain Skin/Breast: Denies: rash Neuro: Reports: headache(s); Denies: numbness in extremities or weakness in extremities PFSH ED PFSH: Medical History History of Holter monitoring 04/2023 Baseline rhythm is sinus rhythm. HR ranged from 56-135, avg 80 bpm, nnspecified patient symptom correlated with isolated PVC History of electroencephalogram 05/2023 IMPRESSION: This was a normal routine EEG, awake and drowsy and asleep, with no behavioral or electrographic epileptiform activity. A normal EEG does not exclude a diagnosis of epilepsy. 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, tamoxifen History of cardiac arrest Benign essential HTN Breast cancer Chronic migraine without aura, intractable, with status migrainosus Recurrent syncope History of colon polyps Psychiatric care Inappropriate sinus tachycardia Malignant hypertension History of malignant melanoma Fear of insects (Unknown) Specifically tics Major depressive disorder, recurrent, severe with psychotic symptoms [facility] managing Lumbar radiculitis Herpes genitalia Hot flashes Irritable bowel disease Depression with anxiety HTN (hypertension) with goal to be determined Borderline personality disorder Functional neurological symptom disorder with attacks or seizures Dr. Chepe Pickering-- Neurology [facility] Surgical History History of appendectomy (01/2021) History of exploratory laparotomy (01/2021) with lysis of adhesions, performed due to SBO Hx of bilateral mastectomy History of colonoscopy Intra-abdominal adhesions (~10/2020) adhesiolysis / incidental appendectomy-- at same time as bowel obstruction H/O tubal ligation (~2008) Hx of abdominoplasty (~2009) History of augmentation of both breasts 2013 silicone implants, removed at time of mastectomies Hx of section (~2008) x 1 Hx of hernia repair (~2012) ventral (patient thinks mesh was used) Hx of hysterectomy (~2008) CHRISTINA-- ovaries spared. Hx of decompressive lumbar laminectomy ---2014 L5-S1 [facility] IN [place], [place]. ---10/20/2020 Revision; Dr Dalia ALBERT Family History Mother Breast cancer dx age unknown Hypertension Grandmother Breast cancer Maternal--dx age 60's Hypertension Maternal and Paternal Sister No problems noted. Daughter Uterine cancer dx age 28 Father Diabetes Hypertension Stroke Grandfather Hypertension maternal and Paternal Denies family history of Colon cancer Ovarian cancer Social History Smoking and tobacco/nicotine status: never used tobacco/nicotine Alcohol intake: current Alcohol intake frequency: holidays/special occasions only Alcohol type: wine Substance/Drug Use: never Do you think of yourself as: Straight/Heterosexual Physical Exam Const: COMMON NORMALS: no acute distress, patient oriented x3 and no limitations GENERAL APPEARANCE: cooperative, comfortable and well developed ORIENTATION/CONSCIOUSNESS: Yes awake, Yes oriented to person, Yes oriented to place and Yes oriented to time HENMT: COMMON NORMALS: normocephalic, atraumatic and hearing grossly normal bilaterally HEAD & SCALP: normocephalic and atraumatic Eye: COMMON NORMALS: Equal, round and reactive pupils present, EOMs intact bilaterally and conjunctivae normal CONJUNCTIVA: Yes conjunctivae normal PUPIL: Yes Equal, round and reactive pupils present Neck/C-Spine: COMMON NORMALS: full ROM, supple and no JVD Resp: COMMON NORMALS: normal respiratory effort, No retractions, No use of accessory muscles and clear to auscultation bilaterally AUSCULTATION: clear to auscultation bilaterally Cardio: COMMON NORMALS: no JVD, regular rate, regular rhythm, No clicks present (Cardio), No murmurs present (Cardio) and No rub (Cardio) RATE: regular rate RHYTHM: regular rhythm GI: COMMON NORMALS: Soft to palpation and non-tender PALPATION: Yes Soft to palpation RECTAL EXAM: deferred Extremity: COMMON NORMALS: normal to inspection, full ROM and capillary refill normal Neuro: COMMON NORMALS: patient oriented x3, CN's II-XII intact bilaterally, moves all extremities, no focal motor deficits and no sensory deficits noted SENSORIUM/ORIENTATION: Yes oriented to person, Yes oriented to place and Yes oriented to time Psych: COMMON NORMALS: mental status grossly normal and Normal thought process present THOUGHT PROCESS: Normal thought process present Skin: COMMON NORMALS: no rashes or lesions noted GENERAL SKIN EXAM: no rashes or lesions noted Course Vital Signs: Vital signs: Vital Signs Temperature 98.0 F 12/17/23 20:24 Pulse Rate 69 12/17/23 20:24 Respiratory Rate 16 12/17/23 20:24 Blood Pressure 166/99 12/17/23 20:24 Pulse Oximetry 97 12/17/23 20:24 Oxygen Delivery Me thod Room Air 12/17/23 19:23 MDM - Headache Medical Decision Making Patient was seen in the emergency department today for migraine headache for the past 2 days. Patient had noted exposure to secondhand tobacco smoke, which she states is a known trigger of hers. She gets monthly injections of Aimovig with Dr. Powell, with her next one due in about a week. On arrival patient's vitals were normal. Patient states that migraine cocktail that worked for her in the past. I started her on a mix of IV fluids, Toradol, Zofran, dexamethasone, and Benadryl. Upon recheck patient states that she feels better. Patient will be discharged home and follow-up with her neurologist as usual. All other questions and concerns addressed at this time. Medical Records I reviewed the patient's medical records. No radiology studies performed this visit Discharge Plan Discharge Patient Disposition: Home Clinical Impression: Migraine headache Qualifiers: Migraine type: unspecified Status migrainosus presence: without status migrainosus Intractability: intractable Qualified Code(s): G43.919 - Migraine, unspecified, intractable, without status migrainosus Condition: Stable Prescriptions: No Action potassium chloride 10 mEq capsule, extended release PO fluconazole 150 mg tablet PO hydrocodone-acetaminophen 5-325 mg tablet PO meloxicam 15 mg tablet PO cephalexin 500 mg capsule PO folic acid 1 mg tablet PO furosemide 20 mg tablet PO doxycycline hyclate 100 mg tablet PO sumatriptan succinate [Imitrex] 100 mg tablet See Rx Instructions PO .COMPLEX Qty: 90 3RF Rx Instructions: take 1 tab at onset of headache; if no relief, may repeat 1 tab after at least 2 hrs; max = 2 tabs/24 hrs PO sertraline [Zoloft] 50 mg tablet 50 mg PO .morning Qty: 30 6RF Rx Instructions: Take one tablet every morning quetiapine [Seroquel] 50 mg tablet 50 mg PO BEDTIME Qty: 30 6RF Rx Instructions: Take one tablet at bedtime carvedilol 25 mg tablet 25 mg PO BID Qty: 180 3RF Aimovig Autoinjector 140 mg/mL auto-injector See Rx Instructions .ROUTE .COMPLEX Qty: 1 3RF Dose Instruction: INJECT ONE PEN SUBCUTANEOUSLY ONCE PER MONTH FOR MIGRAINES Rx Instructions: INJECT ONE PEN SUBCUTANEOUSLY ONCE PER MONTH FOR MIGRAINES psyllium husk [Fiber (psyllium husk)] 0.4 gram Capsule 1.2 g PO DAILY pantoprazole 40 mg tablet,delayed release (DR/EC) 40 mg PO QAM acyclovir 800 mg tablet 800 mg PO TID PRN (Reason: BREAKOUTS) pregabalin 100 mg capsule 100 mg PO Q12H ondansetron 4 mg tablet,disintegrating 4 mg PO Q8H PRN (Reason: nausea and vomiting) Qty: 14 0RF ondansetron 4 mg tablet,disintegrating 4 mg PO Q6H PRN (Reason: nausea and vomiting) Qty: 14 0RF Discharge Orders: Discharge ED (Routine); Ordered 12/17/23 Ordered By: Colton Nunez Referrals: Roseanne Marin PA [Primary Care Provider] - Discharge Diet: Usual diet Discharge Activity: Increase activity as tolerated Patient Instructions: Migraine Headache (ED) Activity Restrictions/Additional Instructions: Plenty of fluids. Follow-up with your neurologist as planned. Avoid triggers to the best of your ability. Follow-up with your primary care provider. Return with any new or worsening symptoms. Coding Level of Care Code ED Graphic Artist for Chg Fwd Documented by User: Moy Galvan DO 12/19/23 11:30 HPI - Headache General: Chief Complaint: Headache Stated Complaint: Migraine Time Seen by Provider: 12/17/23 18:35 PFSH ED PFSH: Medical History History of Holter monitoring 04/2023 Baseline rhythm is sinus rhythm. HR ranged from 56-135, avg 80 bpm, nnspecified patient symptom correlated with isolated PVC History of electroencephalogram 05/2023 IMPRESSION: This was a normal routine EEG, awake and drowsy and asleep, with no behavioral or electrographic epileptiform activity. A normal EEG does not exclude a diagnosis of epilepsy. 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, tamoxifen History of cardiac arrest Benign essential HTN Breast cancer Chronic migraine without aura, intractable, with status migrainosus Recurrent syncope History of colon polyps Psychiatric care Inappropriate sinus tachycardia Malignant hypertension History of malignant melanoma Fear of insects (Unknown) Specifically tics Major depressive disorder, recurrent, severe with psychotic symptoms [facility] managing Lumbar radiculitis Herpes genitalia Hot flashes Irritable bowel disease Depression with anxiety HTN (hypertension) with goal to be determined Borderline personality disorder Functional neurological symptom disorder with attacks or seizures Dr. Chepe Pickering-- Neurology [facility] Surgical History History of appendectomy (01/2021) History of exploratory laparotomy (01/2021) with lysis of adhesions, performed due to SBO Hx of bilateral mastectomy History of colonoscopy Intra-abdominal adhesions (~10/2020) adhesiolysis / incidental appendectomy-- at same time as bowel obstruction H/O tubal ligation (~2008) Hx of abdominoplasty (~2009) History of augmentation of both breasts 2013 silicone implants, removed at time of mastectomies Hx of section (~2008) x 1 Hx of hernia repair (~2012) ventral (patient thinks mesh was used) Hx of hysterectomy (~2008) [facility]RISTINA-- ovaries spared. Hx of decompressive lumbar laminectomy ---2014 L5-S1 [facility] IN [place], [place]. ---10/20/2020 Revision; Dr Dalia ALBERT Family History Mother Breast cancer dx age unknown Hypertension Grandmother Breast cancer Maternal--dx age 60's Hypertension Maternal and Paternal Sister No problems noted. Daughter Uterine cancer dx age 28 Father Diabetes Hypertension Stroke Grandfather Hypertension maternal and Paternal Denies family history of Colon cancer Ovarian cancer Social History Smoking and tobacco/nicotine status: never used tobacco/nicotine Alcohol intake: current Alcohol intake frequency: holidays/special occasions only Alcohol type: wine Substance/Drug Use: never Do you think of yourself as: Straight/Heterosexual Course Vital Signs: Vital signs: Vital Signs Temperature 98.0 F 12/17/23 20:24 Pulse Rate 69 12/17/23 20:24 Respiratory Rate 16 12/17/23 20:24 Blood Pressure 166/99 12/17/23 20:24 Pulse Oximetry 97 12/17/23 20:24 Oxygen Delivery Me thod Room Air 12/17/23 19:23 MDM - Headache Medical Decision Making Patient was seen in the emergency department today for migraine headache for the past 2 days. Patient had noted exposure to secondhand tobacco smoke, which she states is a known trigger of hers. She gets monthly injections of Aimovig with Dr. Powell, with her next one due in about a week. On arrival patient's vitals were normal. Patient states that migraine cocktail that worked for her in the past. I started her on a mix of IV fluids, Toradol, Zofran, dexamethasone, and Benadryl. Upon recheck patient states that she feels better. Patient will be discharged home and follow-up with her neurologist as usual. All other questions and concerns addressed at this time. Chart reviewed Discharge Plan Discharge Patient Disposition: Home Clinical Impression: Migraine headache Qualifiers: Migraine type: unspecified Status migrainosus presence: without status migrainosus Intractability: intractable Qualified Code(s): G43.919 - Migraine, unspecified, intractable, without status migrainosus Condition: Stable Prescriptions: No Action potassium chloride 10 mEq capsule, extended release PO fluconazole 150 mg tablet PO hydrocodone-acetaminophen 5-325 mg tablet PO meloxicam 15 mg tablet PO cephalexin 500 mg capsule PO folic acid 1 mg tablet PO furosemide 20 mg tablet PO doxycycline hyclate 100 mg tablet PO sumatriptan succinate [Imitrex] 100 mg tablet See Rx Instructions PO .COMPLEX Qty: 90 3RF Rx Instructions: take 1 tab at onset of headache; if no relief, may repeat 1 tab after at least 2 hrs; max = 2 tabs/24 hrs PO sertraline [Zoloft] 50 mg tablet 50 mg PO .morning Qty: 30 6RF Rx Instructions: Take one tablet every morning quetiapine [Seroquel] 50 mg tablet 50 mg PO BEDTIME Qty: 30 6RF Rx Instructions: Take one tablet at bedtime carvedilol 25 mg tablet 25 mg PO BID Qty: 180 3RF Aimovig Autoinjector 140 mg/mL auto-injector See Rx Instructions .ROUTE .COMPLEX Qty: 1 3RF Dose Instruction: INJECT ONE PEN SUBCUTANEOUSLY ONCE PER MONTH FOR MIGRAINES Rx Instructions: INJECT ONE PEN SUBCUTANEOUSLY ONCE PER MONTH FOR MIGRAINES psyllium husk [Fiber (psyllium husk)] 0.4 gram Capsule 1.2 g PO DAILY pantoprazole 40 mg tablet,delayed release (DR/EC) 40 mg PO QAM acyclovir 800 mg tablet 800 mg PO TID PRN (Reason: BREAKOUTS) pregabalin 100 mg capsule 100 mg PO Q12H ondansetron 4 mg tablet,disintegrating 4 mg PO Q8H PRN (Reason: nausea and vomiting) Qty: 14 0RF ondansetron 4 mg tablet,disintegrating 4 mg PO Q6H PRN (Reason: nausea and vomiting) Qty: 14 0RF Discharge Orders: Discharge ED (Routine); Ordered 12/17/23 Ordered By: Colton Nunez Referrals: Roseanne Marin PA [Primary Care Provider] - Discharge Diet: Usual diet Discharge Activity: Increase activity as tolerated Patient Instructions: Migraine Headache (ED) Activity Restrictions/Additional Instructions: Plenty of fluids. Follow-up with your neurologist as planned. Avoid triggers to the best of your ability. Follow-up with your primary care provider. Return with any new or worsening symptoms. Coding Level of Care Code ED Graphic Artist for 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
[2023-12-17] MEDS: sodium chloride 0.9% 1,000 ML 999 ML IV (19:12)
[2023-12-17] MEDS: ondansetron 2 mg/ML SDV 2 mL 4 MG IVP (19:22)
[2023-12-17] MEDS: ketorolac 60 mg/2 mL INJ 10 MG IVP (19:22)
[2023-12-17 19:23] VITALS: BP 166/99; PULSE 69; RESP 16; O2SAT 97
[2023-12-17] MEDS: dexamethasone 10 mg/mL INJ 8 MG IVP (19:23)
[2023-12-17] MEDS: diphenhydrAMINE 50 mg/mL SDV 1mL IVP (19:24)
[2023-12-17 20:24] VITALS: BP 166/99; PULSE 69; RESP 16; TEMP 36.7; O2SAT 97
== END 2023-12-17 20:34 | disposition home or self-care (01) ==
PROVIDERS: Emergency Provider Physician Assistant; PCP Physician Assistant
DX: G43.919 Migraine, unspecified, intractable, without status migrainosus (principal); I10 Essential (primary) hypertension; Z85.3 Personal history of malignant neoplasm of breast
CPT/HCPCS: 96361; 96374; 96375; 99284; J1100; J1200; J1885; J2405; J7030

== ENCOUNTER 2023-12-26 19:09 | Emergency (ER) | payer MEDICARE, MEDICAID, SELFPAY ==
[2023-10-05 11:47] VITALS: BP 131/76; BMI 30.5
[2023-12-26 19:11] VITALS: BP 193/110; PULSE 72; RESP 16; TEMP 36.6; O2SAT 98
--- NOTE | 2023-12-26 19:19 | CTR_ITS ---
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 Radiation optimization: All CT scans at this facility use at least one of these dose optimization techniques: automated exposure control; mA and/or kV adjustment per patient size (includes targeted exams where dose is matched to clinical indication); or iterative reconstruction. COMPARISON: CT angio headneck* [id number] 04/09/2022 2:46 PM RADIATION DOSE METRICS: Total DLP (mGy-cm): 1033.08 FINDINGS: Brain: Normal. No hemorrhage. Unremarkable white matter. No mass effect or acute infarct. Cerebral ventricles: No ventriculomegaly. No midline shift. Paranasal sinuses: Visualized sinuses are unremarkable. No fluid levels. Mastoid air cells: Visualized mastoid air cells are well aerated. Bones/joints: Unremarkable. No acute fracture. Soft tissues: Unremarkable. CT/CT head wo con* [id number] IMPRESSION: No acute intracranial abnormality.
--- NOTE | 2023-12-26 19:20 | W.ED.HA ---
HPI - Headache General: Chief Complaint: Headache Stated Complaint: Migraine Time Seen by Provider: 12/26/23 19:15 Source: patient Mode of arrival: ambulatory Limitations: no limitations History of Present Illness: 58-year-old female states she has a history of migraines states she has had a headache since Tuesday it worsened today. States that Tuesday she had some vomiting and had a syncopal event in her bathroom and hit her head that is when the headache began states headaches currently a 7 out of 10 it feels like her previous migraines she has photophobia and phonophobia still has some nausea but no more vomiting or diarrhea. Associated symptoms: Reports nausea and vomiting; Deny chest pain, fever(s) or rash Review of Systems Const: Denies: fever(s), chills, body aches or change in appetite ENMT: Denies: throat pain or dental pain Card: Denies: chest pain Resp: Denies: dyspnea GI: Reports: nausea and vomiting; Denies: abdominal pain Musc: Denies: neck pain or back pain Skin/Breast: Denies: rash Neuro: Reports: headache(s) PFSH ED PFSH: Medical History History of Holter monitoring 04/2023 Baseline rhythm is sinus rhythm. HR ranged from 56-135, avg 80 bpm, nnspecified patient symptom correlated with isolated PVC History of electroencephalogram 05/2023 IMPRESSION: This was a normal routine EEG, awake and drowsy and asleep, with no behavioral or electrographic epileptiform activity. A normal EEG does not exclude a diagnosis of epilepsy. Small bowel obstruction DCIS (ductal carcinoma in situ) ER/OR negative, tamoxifen History of cardiac arrest Benign essential HTN Breast cancer Chronic migraine without aura, intractable, with status migrainosus Recurrent syncope History of colon polyps Psychiatric care Inappropriate sinus tachycardia Malignant hypertension History of malignant melanoma Fear of insects (Unknown) Specifically tics Major depressive disorder, recurrent, severe with psychotic symptoms [facility] managing Lumbar radiculitis Herpes genitalia Hot flashes Irritable bowel disease Depression with anxiety HTN (hypertension) with goal to be determined Borderline personality disorder Functional neurological symptom disorder with attacks or seizures Dr. Chepe Pickering-- Neurology [facility] Surgical History History of appendectomy (01/2021) History of exploratory laparotomy (01/2021) with lysis of adhesions, performed due to SBO Hx of bilateral mastectomy History of colonoscopy Intra-abdominal adhesions (~10/2020) adhesiolysis / incidental appendectomy-- at same time as bowel obstruction H/O tubal ligation (~2008) Hx of abdominoplasty (~2009) History of augmentation of both breasts 2012 silicone implants, removed at time of mastectomies Hx of section (~2008) x 1 Hx of hernia repair (~2012) ventral (patient thinks mesh was used) Hx of hysterectomy (~2008) [facility]-- ovaries spared. Hx of decompressive lumbar laminectomy ---2014 L5-S1 [place], [place] ---10/20/2020 Revision; Dr Dalia ALBERT Family History Mother Breast cancer dx age unknown Hypertension Grandmother Breast cancer Maternal--dx age 60's Hypertension Maternal and Paternal Sister No problems noted. Daughter Uterine cancer dx age 28 Father Diabetes Hypertension Stroke Grandfather Hypertension maternal and Paternal Denies family history of Colon cancer Ovarian cancer Social History Smoking and tobacco/nicotine status: never used tobacco/nicotine Alcohol intake: current Alcohol intake frequency: holidays/special occasions only Alcohol type: wine Substance/Drug Use: never Do you think of yourself as: Straight/Heterosexual Physical Exam Const: COMMON NORMALS: no acute distress, patient oriented x3 and healthy appearing HENMT: COMMON NORMALS: normocephalic and atraumatic HEAD & SCALP: normocephalic and atraumatic Eye: COMMON NORMALS: Equal, round and reactive pupils present and conjunctivae normal CONJUNCTIVA: Yes conjunctivae normal PUPIL: Yes Equal, round and reactive pupils present Neck/C-Spine: COMMON NORMALS: full ROM and supple Chest: COMMONS NORMALS: normal inspection of the chest Resp: COMMON NORMALS: normal respiratory effort Extremity: COMMON NORMALS: normal to inspection and full ROM Neuro: COMMON NORMALS: patient oriented x3, moves all extremities and no focal motor deficits Psych: COMMON NORMALS: mental status grossly normal, Normal thought process present and cooperative THOUGHT PROCESS: Normal thought process present Skin: COMMON NORMALS: no rashes or lesions noted and no wounds GENERAL SKIN EXAM: no rashes or lesions noted Course Vital Signs: Vital signs: Vital Signs Temperature 97.9 F 12/26/23 19:11 Pulse Rate 72 12/26/23 19:11 Respiratory Rate 16 12/26/23 19:11 Blood Pressure 193/110 12/26/23 19:11 Pulse Oximetry 98 12/26/23 19:11 Oxygen Delivery Me thod Room Air 12/26/23 19:11 MDM - Headache Medical Decision Making Patient presents here with headache consistent with her migraine headaches head CT is normal her headaches now much improved her headaches at 3 out of 10 she is stable for discharge she is follow-up with neurologist return if worsening she understands agrees to plan Medical Records I reviewed the patient's medical records. Lab Data Radiology Impressions Head CT 12/26/23 19:19 IMPRESSION: No acute intracranial abnormality. All radiology interpretation(s) finalized by discharge Discharge Plan Discharge Patient Disposition: Home Clinical Impression: Headache Condition: Stable Prescriptions: No Action potassium chloride 10 mEq capsule, extended release PO fluconazole 150 mg tablet PO hydrocodone-acetaminophen 5-325 mg tablet PO meloxicam 15 mg tablet PO cephalexin 500 mg capsule PO folic acid 1 mg tablet PO furosemide 20 mg tablet PO doxycycline hyclate 100 mg tablet PO sumatriptan succinate [Imitrex] 100 mg tablet See Rx Instructions PO .COMPLEX Qty: 90 3RF Rx Instructions: take 1 tab at onset of headache; if no relief, may repeat 1 tab after at least 2 hrs; max = 2 tabs/24 hrs PO sertraline [Zoloft] 50 mg tablet 50 mg PO .morning Qty: 30 6RF Rx Instructions: Take one tablet every morning quetiapine [Seroquel] 50 mg tablet 50 mg PO BEDTIME Qty: 30 6RF Rx Instructions: Take one tablet at bedtime carvedilol 25 mg tablet 25 mg PO BID Qty: 180 3RF Aimovig Autoinjector 140 mg/mL auto-injector See Rx Instructions .ROUTE .COMPLEX Qty: 1 3RF Dose Instruction: INJECT ONE PEN SUBCUTANEOUSLY ONCE PER MONTH FOR MIGRAINES Rx Instructions: INJECT ONE PEN SUBCUTANEOUSLY ONCE PER MONTH FOR MIGRAINES psyllium husk [Fiber (psyllium husk)] 0.4 gram Capsule 1.2 g PO DAILY pantoprazole 40 mg tablet,delayed release (/EC) 40 mg PO QAM acyclovir 800 mg tablet 800 mg PO TID PRN (Reason: BREAKOUTS) pregabalin 100 mg capsule 100 mg PO Q12H ondansetron 4 mg tablet,disintegrating 4 mg PO Q8H PRN (Reason: nausea and vomiting) Qty: 14 0RF ondansetron 4 mg tablet,disintegrating 4 mg PO Q6H PRN (Reason: nausea and vomiting) Qty: 14 0RF Discharge Orders: Discharge ED (Routine); Ordered 12/26/23 Ordered By: Urmila Pereyra Referrals: Roseanne Marin PA [Primary Care Provider] - 4-7 days Discharge Diet: Advance as tolerated Discharge Activity: Resume usual activity Patient Instructions: Migraine Headache (ED) Coding Level of Care Code ED Transportation Engineer for 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
[2023-12-26] MEDS: sodium chloride 0.9% 1,000 ML 999 ML IV (20:01)
[2023-12-26] MEDS: metoclopramide 5 mg/mL SDV 2 mL 10 MG IVP (20:01)
[2023-12-26] MEDS: diphenhydrAMINE 50 mg/mL SDV 1mL IVP (20:01)
[2023-12-26] MEDS: ketorolac 30 mg/mL INJ IVP (20:01)
[2023-12-26] MEDS: dexamethasone 10 mg/mL INJ IVP (20:45)
[2023-12-26] MEDS: HYDROmorphone 1 mg/mL INJ 1 mL IVP (20:45)
[2023-12-26] MEDS: hyDRALAzine 20 mg/mL INJ 1 mL 10 MG IVP (20:51)
[2023-12-26 22:20] VITALS: BP 163/90; PULSE 72; RESP 16; TEMP 36.6; O2SAT 98
== END 2023-12-26 21:40 | disposition home or self-care (01) ==
PROVIDERS: Emergency Provider Emergency Medicine; PCP Physician Assistant
DX: R51.9 Headache, unspecified (principal); Z85.3 Personal history of malignant neoplasm of breast; I10 Essential (primary) hypertension
CPT/HCPCS: 70450; 96361; 96374; 96375; 99285; J0360; J1100; J1170; J1200; J1885; J2765; J7030

== ENCOUNTER 2024-01-16 14:25 | Emergency (ER) | payer MEDICARE, MEDICAID, SELFPAY ==
[2023-10-05 11:47] VITALS: BP 131/76; BMI 30.5
[2024-01-16 14:30] VITALS: BP 160/77; PULSE 89; RESP 16; TEMP 36.7; O2SAT 98; BMI 33.0
[2024-01-16 15:27] LABS: Basophils % 0.5 %; Eosinophils # 0.2 10^3/uL (0.0-0.8); Eosinophils % 3.7 %; Hematocrit 36.9 % (36-47); Lymphocytes % 34.9 %; Mean Corpuscular HGB Conc 31.7 g/dL (30-55); Mean Corpuscular Hemoglobin 26.8 pg (27-33); Mean Corpuscular Volume 84.4 fl (85-98); Mean Platelet Volume 11.2 fL (7.4-10.4); Monocytes # 0.4 10^3/uL (0.2-0.9); Monocytes % 7.3 %; Neutrophils # 2.97 10^3/uL (1.8-7.7); Neutrophils % 53.1 %; Nucleated Red Blood Cells % 0 %; Platelet Count 174 10^3/cmm (157-399); Red Blood Count 4.37 10^6/uL (3.85-5.65); Red Cell Distribution Width 13.9 % (12.1-15.1); White Blood Count 5.61 10^3/uL (3.29-11.43)
[2024-01-16 15:38] LABS: INR 0.86 (0.8-1.2)
[2024-01-16 15:45] LABS: Alanine Aminotransferase 17 U/L (0-33); Albumin Level 3.8 g/dL (3.5-5.2); Alkaline Phosphatase 76 U/L (35-105); Anion Gap 13.2 (5-19); Aspartate Amino Transferase 16 U/L (0-32); Blood Urea Nitrogen 14 mg/dL (6-20); Calcium 8.9 mg/dL (8.5-10.5); Carbon Dioxide 25 mmol/L (22-29); Chloride 107 mmol/L (98-107); Creatinine Clr Calc Pharmacy 68.4814; Globulin 2.6 g/dL (1.3-4.6); Glomerular Filtration Rate 64.5 mL/min (90-130); Glucose 121 mg/dL (65-115); Osmolality Calculated 294 mOsm/kg (285-295); Potassium 4.2 mmol/L (3.5-5.1); Sodium 141 mmol/L (136-145); Total Bilirubin 0.2 mg/dL (0.15-1.2); Total Protein 6.4 g/dL (6.6-8.7)
[2024-01-16 16:14] VITALS: BP 199/88; PULSE 79; RESP 16; O2SAT 98
--- NOTE | 2024-01-16 16:26 | PC.PHAR ---
Addendum entered by Rachael Ying 01/16/24 16:30: Tuesday01/11/24 dced amlodipine Original Note: pt states she takes care of her own medications-pt states she dced her amlodipine 5mg daily on 01/12/24 pt states she told the dr she wasnt going to take it -
--- NOTE | 2024-01-16 16:45 | CTR_ITS ---
PROCEDURE INFORMATION: Exam: CT Abdomen And Pelvis Without Contrast Exam date and time: 01/16/2024 4:57 PM Age: 58 years old Clinical indication: Abdominal pain; Generalized; Prior surgery; Surgery date: 6+ months; Surgery type: Hernia, bowel obstruction, vinay; Additional info: Abdominal pain/rectal bleeding TECHNIQUE: Imaging protocol: Computed tomography of the abdomen and pelvis without contrast. Radiation optimization: All CT scans at this facility use at least one of these dose optimization techniques: automated exposure control; mA and/or kV adjustment per patient size (includes targeted exams where dose is matched to clinical indication); or iterative reconstruction. COMPARISON: CT abdomen pelvis wo con [id number] 11/03/2023 6:12 PM RADIATION DOSE METRICS: Total DLP (mGy-cm): 793.96 FINDINGS: Lungs: Incidental small lung calcified granuloma in the right lower lobe. Liver: Normal. No mass. Gallbladder and bile ducts: Gallbladder is absent. No biliary dilatation. Pancreas: Normal. No ductal dilation. Spleen: Normal. No splenomegaly. Adrenal glands: Normal. No mass. Kidneys and ureters: Nonobstructive 3 mm stone in the lower pole of the left kidney. Stomach and bowel: Mild wall thickening of the ileum and distal jejunum with chronic fat deposition in the submucosa suggestive of sequelae of prior inflammation/inflammatory bowel disease. Previous wall thickening has improved significantly from 11/03/2023. Additional chronic fat deposition in the 3rd portion of the duodenal. Appendix: No evidence of appendicitis. Intraperitoneal space: Surgical scar in the epigastrium, umbilical region and infraumbilical midline anterior abdomen. Vasculature: Unremarkable. No abdominal aortic aneurysm. Lymph nodes: Unremarkable. No enlarged lymph nodes. Urinary bladder: Unremarkable as visualized. Reproductive: Uterus is absent. Bones/joints: Mild cystic change of the central/superior articular aspect of the right femoral head and anterior superior aspect of the left femoral head. Moderate disc space narrowing at L5-S1 with at least mild canal and foraminal stenosis again noted. Soft tissues: Partially imaged bilateral breast implants. CT/CT abdomen pelvis con [id number] IMPRESSION: 1. Residual submucosal fat deposition in the ileum and 3rd portion of the duodenum, suggestive of sequelae of inflammatory bowel disease. Previous bowel thickening has significantly improved /resolved compared to 11/03/2023. 2. Nonobstructive 3 mm left renal stone and other chronic findings detailed above.
[2024-01-16] MEDS: diphenhydrAMINE 50 mg/mL SDV 1mL IVP (17:26)
--- NOTE | 2024-01-16 17:26 | ED_ITS ---
HPI - Abdominal Pain 2 General: Chief Complaint: Abdominal Pain Stated Complaint: migraine, nausea, blood in stool Time Seen by Provider: 01/16/24 16:13 Source: patient Mode of arrival: ambulatory History of Present Illness: 58-year-old female presents emergency ro om with migraine and nausea she is also noticed bright red blood per rectum. Migraines are typical for she has had them before and this is similar to what she has had in the past. She has bright red blood per rectum she has noticed over the last 2 days. No melena no hematemesis. She had previously had a colonoscopy. She does have a known history of irritable bowel disease. MD elicited complaint: abdominal pain Onset (ago): day(s) (1) Exacerbating factors: nothing Relieving factors: nothing Associated Symptoms: Reports hematochezia; Denies anorexia, belching, bloating, change in bowel habits, change in stool character, chills, coffee ground emesis, constipation, GI cramping, diarrhea, dyspepsia, dysuria, excessive flatus, fever(s), heartburn, hematuria, hematemesis, fecal incontinence, loose stools, melena, nausea, poor appetite, syncope and vomiting Review of Systems 2 Const: Denies: fever(s) or chills Card: Denies: syncope Resp: Denies: dyspnea GI: Reports: abdominal pain and hematochezia; Denies: nausea, vomiting, hematemesis, coffee ground emesis, heartburn, diarrhea, constipation, bloating, GI cramping, belching, excessive flatus, fecal incontinence, change in bowel habits, change in stool character or melena : Denies: dysuria, urinary frequency, urinary urgency or hematuria Musc: Denies: neck pain or back pain Skin/Breast: Denies: rash PFSH ED 2 PFSH: Medical History History of Holter monitoring 04/2023 Baseline rhythm is sinus rhythm. HR ranged from 56-135, avg 80 bpm, nnspecified patient symptom correlated with isolated PVC History of electroencephalogram 05/2023 IMPRESSION: This was a normal routine EEG, awake and drowsy and asleep, with no behavioral or electrographic epileptiform activity. A normal EEG does not exclude a diagnosis of epilepsy. Small bowel obstruction DCIS (ductal carcinoma in situ) ER/[place] negative, tamoxifen History of cardiac arrest Benign essential HTN Breast cancer Chronic migraine without aura, intractable, with status migrainosus Recurrent syncope History of colon polyps Psychiatric care Inappropriate sinus tachycardia Malignant hypertension History of malignant melanoma Fear of insects (Unknown) Specifically tics Major depressive disorder, recurrent, severe with psychotic symptoms [facility] managing Lumbar radiculitis Herpes genitalia Hot flashes Irritable bowel disease Depression with anxiety HTN (hypertension) with goal to be determined Borderline personality disorder Functional neurological symptom disorder with attacks or seizures Dr. Chepe Pickering-- Neurology [facility] Surgical History History of appendectomy (01/2021) History of exploratory laparotomy (01/2021) with lysis of adhesions, performed due to SBO Hx of bilateral mastectomy History of colonoscopy Intra-abdominal adhesions (~10/2020) adhesiolysis / incidental appendectomy-- at same time as bowel obstruction H/O tubal ligation (~2008) Hx of abdominoplasty (~2009) History of augmentation of both breasts 2012 silicone implants, removed at time of mastectomies Hx of section (~2008) x 1 Hx of hernia repair (~2012) ventral (patient thinks mesh was used) Hx of hysterectomy (~2008) [facility]-- ovaries spared. Hx of decompressive lumbar laminectomy ---2014 L5-S1 [facility] [place], [place]. ---10/20/2020 Revision; Dr Dalia ALBERT Family History Mother Breast cancer dx age unknown Hypertension Grandmother Breast cancer Maternal--dx age 60's Hypertension Maternal and Paternal Sister No problems noted. Daughter Uterine cancer dx age 28 Father Diabetes Hypertension Stroke Grandfather Hypertension maternal and Paternal Denies family history of Colon cancer Ovarian cancer Social History Smoking and tobacco/nicotine status: never used tobacco/nicotine Alcohol intake: current Alcohol intake frequency: holidays/special occasions only Alcohol type: wine Substance/Drug Use: never Do you think of yourself as: Straight/Heterosexual Physical Exam 2 Const: GENERAL APPEARANCE: cooperative and comfortable O RIENTATION/CONSCIOUSNESS: Yes awake, Yes oriented to person, Yes oriented to place and Yes oriented to time HENMT: COMMON NORMALS: normocephalic, atraumatic and hearing grossly normal bilaterally HEAD & SCALP: normocephalic and atraumatic Resp: COMMON NORMALS: normal respiratory effort, No retractions, No use of accessory muscles and clear to auscultation bilaterally AUSCULTATION: clear to auscultation bilaterally Cardio: COMMON NORMALS: regular rate, regular rhythm and No murmurs present (Cardio) RATE: regular rate RHYTHM: regular rhythm GI: COMMON NORMALS: No hepatosplenomegaly present AUSCULTATION: Yes normoactive bowel sounds PALPATION: Yes Tenderness to palpation present (GI) (mild diffuse), No Guarding due to palpation present (GI) and Yes No hepatosplenomegaly present Extremity: COMMON NORMALS: normal to inspection, capillary refill normal, no clubbing, cyanosis or edema, no calf tenderness and no pedal edema Neuro: SENSORIUM/ORIENTATION: Yes oriented to person, Yes oriented to place and Yes oriented to time Skin: COMMON NORMALS: no rashes or lesions noted GENERAL SKIN EXAM: no rashes or lesions noted Course 2 Vital Signs: Vital signs: Vital Signs Temperature 98.0 F 01/16/24 14:30 Pulse Rate 82 01/16/24 17:38 Respiratory Rate 16 01/16/24 17:38 Blood Pressure 176/100 01/16/24 17:38 Pulse Oximetry 98 01/16/24 17:38 Oxygen Delivery Me thod Room Air 01/16/24 14:30 MDM - Abdominal Pain Medical Decision Making Migraine symptoms improved with medications given. Will discharge patient home white count normal she has a history of irritable bowel she has had rectal bleeding before. Hemoglobin today is 11.7 which is down slightly patient is not on any anticoagulants she should have a repeat hemoglobin in the next 24 to 48 hours with her primary care doctor she has an upcoming appointment with [facility] gastroenterology via her primary care. CT does not show any site of acute diverticulitis we will use steroids. Recheck for his worsening symptoms Medical Records I reviewed the patient's medical records. Lab Data I reviewed the patient's lab results. 01/16/24 15:19 01/16/24 15:19 Labs/Radiology: Radiology Impressions Abdomen/Pelvis CT 01/16/24 16:45 IMPRESSION: 1. Residual submucosal fat deposition in the ileum and 3rd portion of the duodenum, suggestive of sequelae of inflammatory bowel disease. Previous bowel thickening has significantly improved /resolved compared to 11/03/2023. 2. Nonobstructive 3 mm left renal stone and other chronic findings detailed above. Laboratory Results WBC 5.61 10^3/uL (3.29-11.43) 01/16/24 15:19 RBC 4.37 10^6/uL (3.85-5.65) 01/16/24 15:19 Hgb 11.70 g/dL (11.27-16.99) 01/16/24 15:19 Hct 36.9 % (36-47) 01/16/24 15:19 MCV 84.4 fl (85-98) L 01/16/24 15:19 MCH 26.8 pg (27-33) L 01/16/24 15:19 MCHC 31.7 g/dL (30-55) 01/16/24 15:19 RDW 13.9 % (12.1-15.1) 01/16/24 15:19 Plt Count 174 10^3/cmm (157-399) 01/16/24 15:19 MPV 11.2 fL (7.4-10.4) H 01/16/24 15:19 Neut % (Auto) 53.1 % 01/16/24 15:19 Lymph % (Auto) 34.9 % 01/16/24 15:19 Shoshone % (Auto) 7.3 % 01/16/24 15:19 Eos % (Auto) 3.7 % 01/16/24 15:19 Baso % (Auto) 0.5 % 01/16/24 15:19 Neut # (Auto) 2.97 10^3/uL (1.8-7.7) 01/16/24 15:19 Lymph # (Auto) 2.0 10^3/uL (0.8-4.8) 01/16/24 15:19 Shoshone # (Auto) 0.4 10^3/uL (0.2-0.9) 01/16/24 15:19 Eos # (Auto) 0.2 10^3/uL (0.0-0.8) 01/16/24 15:19 Baso # (Auto) 0.0 10^3/uL (0.0-0.1) 01/16/24 15:19 Nucleated RBC % (auto) 0 % 01/16/24 15:19 Nucleated RBCs # 0.0 /100WBC 01/16/24 15:19 PT 12.00 SECONDS (12.1-14.9) L 01/16/24 15:19 INR 0.86 (0.8-1.2) 01/16/24 15:19 Sodium 141 mmol/L (136-145) 01/16/24 15:19 Potassium 4.2 mmol/L (3.5-5.1) 01/16/24 15:19 Chloride 107 mmol/L (98-107) 01/16/24 15:19 Carbon Dioxide 25 mmol/L (22-29) 01/16/24 15:19 Anion Gap 13.2 (5-19) 01/16/24 15:19 BUN 14 mg/dL (6-20) 01/16/24 15:19 Creatinine 0.9 mg/dL (0.5-0.9) 01/16/24 15:19 GFR Calculation 64.5 mL/min (90-130) L 01/16/24 15:19 Glucose 121 mg/dL (65-115) H 01/16/24 15:19 Calculated Osmolality 294 mOsm/kg (285-295) 01/16/24 15:19 Calcium 8.9 mg/dL (8.5-10.5) 01/16/24 15:19 Total Bilirubin 0.2 mg/dL (0.15-1.2) 01/16/24 15:19 AST 16 U/L (0-32) 01/16/24 15:19 ALT 17 U/L (0-33) 01/16/24 15:19 Alkaline Phosphatase 76 U/L (35-105) 01/16/24 15:19 Total Protein 6.4 g/dL (6.6-8.7) L 01/16/24 15:19 Albumin 3.8 g/dL (3.5-5.2) 01/16/24 15:19 Globulin 2.6 g/dL (1.3-4.6) 01/16/24 15:19 All radiology interpretation(s) finalized by discharge Discharge Plan Discharge Patient Disposition: Home Clinical Impression: Migraine Irritable bowel disease Qualifiers: Irritable bowel syndrome type: with constipation Qualified Code(s): K58.1 - Irritable bowel syndrome with constipation Condition: Stable Prescriptions: New prednisone 20 mg tablet 20 mg PO TID Qty: 15 0RF Rx Instructions: 1 p.o. 3 times daily x3 days, 1 p.o. twice daily x2 days, 1 p.o. daily x2 days promethazine 25 mg tablet 25 mg PO Q6H PRN (Reason: nausea and vomiting) Qty: 20 0RF No Action quetiapine [Seroquel] 50 mg tablet 50 mg PO BEDTIME Qty: 30 6RF carvedilol 25 mg tablet 25 mg PO BID Qty: 180 3RF Aimovig Autoinjector 140 mg/mL auto-injector See Rx Instructions .ROUTE .COMPLEX Qty: 1 3RF Dose Instruction: INJECT ONE PEN SUBCUTANEOUSLY ONCE PER MONTH FOR MIGRAINES Rx Instructions: INJECT ONE PEN SUBCUTANEOUSLY ONCE PER MONTH FOR MIGRAINES amlodipine 5 mg tablet 5 mg PO DAILY Qty: 30 0RF Rx Instructions: pt states dced 01/11/24 pantoprazole 40 mg tablet,delayed release (DR/EC) 40 mg PO QAM sertraline [Zoloft] 50 mg tablet 50 mg PO QAM Women's Multivitamin 18 mg iron-400 mcg-500 mg Tablet 1 tab PO DAILY acyclovir 800 mg tablet 800 mg PO TID PRN (Reason: BREAKOUTS) pregabalin 100 mg capsule 100 mg PO Q12H MDD 2 caps ondansetron 4 mg tablet,disintegrating 4 mg PO Q6H PRN (Reason: nausea and vomiting) Qty: 14 0RF Discharge Orders: Discharge ED (Routine); Ordered 01/16/24 Ordered By: Moy Galvan Referrals: Roseanne Marin PA [Primary Care Provider] - Discharge Diet: Clear Liquid Discharge Activity: Increase activity as tolerated Patient Instructions: Opioid Safety, Pain Management Activity Restrictions/Additional Instructions: Thank you for choosing [facility] for your healthcare needs today. Please realize this is an emergency room and that we are providing you with a medical screening exam and this may not be complete and all inclusive of all the testing and or work up that you may need to determine your ailment or severity of your illness. It is very important that you follow up as instructed or that you return to the Emergency Department should you have concerns or if your condition changes or worsens in any way. Follow-up with your primary care doctor for repeat hemoglobin and 2 days. Return to emergency room if worsening symptoms. Clear liquid diet for the next 24 to 48 hours. Start oral steroids tomorrow. Coding Level of Care Code ED Gunner'S Mate for 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
[2024-01-16] MEDS: ketorolac 30 mg/mL INJ IVP (17:27)
[2024-01-16] MEDS: valproic acid inj 500 MG in sodium chloride 0.9% 50 ML 55 MG IV (17:28)
[2024-01-16 17:38] VITALS: BP 176/100; PULSE 82; RESP 16; O2SAT 98
[2024-01-16] MEDS: dexamethasone 10 mg/mL INJ IM (18:38)
[2024-01-16 19:31] VITALS: BP 163/74; PULSE 78; RESP 16; O2SAT 97
== END 2024-01-16 19:31 | disposition home or self-care (01) ==
PROVIDERS: Emergency Medicine; Emergency Provider Family Medicine; PCP Physician Assistant
DX: G43.909 Migraine, unspecified, not intractable, without status migrainosus (principal); K58.1 Irritable bowel syndrome with constipation; I10 Essential (primary) hypertension; Z85.3 Personal history of malignant neoplasm of breast
CPT/HCPCS: 36415; 74176; 80053; 85025; 85610; 96372; 96374; 96375; 99285; J1100; J1200; J1885; J3490

== ENCOUNTER → 2024-03-19 08:30 | Outpatient (BNVA) | payer MEDICARE, MEDICAID, SELFPAY ==
[2023-10-05 11:47] VITALS: BP 131/76; BMI 30.5
== END ==
PROVIDERS: PCP Physician Assistant; Visit Provider Nurse Practitioner Family
DX: L57.8 Other skin changes due to chronic exposure to nonionizing radiation (principal); L57.0 Actinic keratosis; Z87.2 Personal history of diseases of the skin and subcutaneous tissue; L82.1 Other seborrheic keratosis; Z85.820 Personal history of malignant melanoma of skin
CPT/HCPCS: 17000; 99213

== ENCOUNTER 2024-03-22 19:22 | Emergency (ER) | payer MEDICARE, MEDICAID, SELFPAY ==
[2023-10-05 11:47] VITALS: BP 131/76; BMI 30.5
[2024-03-22 19:25] VITALS: BP 148/83; PULSE 96; RESP 16; TEMP 37.1; O2SAT 95; BMI 35.3
--- NOTE | 2024-03-22 19:41 | XRR_ITS ---
PROCEDURE INFORMATION: Exam: XR Abdomen Exam date and time: 03/22/2024 9:16 PM Age: 58 years old Clinical indication: Nausea and vomiting; Prior surgery; Surgery date: 6+ months; Surgery type: Ila/bowl obstruction/hernia; Patient HX: HX of bowl obstruction; Additional info: Abd pain, n/v, HX of bowel obs TECHNIQUE: Imaging protocol: Radiologic exam of the abdomen. Views: Frontal supine view of the abdomen. 1 View. COMPARISON: CT abdomen pelvis con [id number] 01/16/2024 4:57 PM FINDINGS: Gastrointestinal tract: Normal. No bowel dilation. Organs: Stable cholecystectomy. Bones/joints: Unremarkable. XR/XR abdomen 1V* [id number] IMPRESSION: No acute findings.
[2024-03-22 20:00] LABS: Basophils % 0.4 %; Eosinophils # 0.1 10^3/uL (0.0-0.8); Eosinophils % 1.2 %; Hematocrit 45.8 % (36-47); Lymphocytes # 1.6 10^3/uL (0.8-4.8); Lymphocytes % 17.7 %; Mean Corpuscular HGB Conc 33.2 g/dL (30-55); Mean Corpuscular Hemoglobin 27.4 pg (27-33); Mean Corpuscular Volume 82.5 fl (85-98); Mean Platelet Volume 11.7 fL (7.4-10.4); Monocytes # 0.5 10^3/uL (0.2-0.9); Neutrophils # 6.81 10^3/uL (1.8-7.7); Neutrophils % 75.5 %; Nucleated Red Blood Cells % 0 %; Platelet Count 263 10^3/cmm (157-399); Red Blood Count 5.55 10^6/uL (3.85-5.65); Red Cell Distribution Width 14.4 % (12.1-15.1); White Blood Count 9.03 10^3/uL (3.29-11.43)
[2024-03-22 20:20] LABS: Alanine Aminotransferase 25 U/L (0-33); Albumin Level 4.8 g/dL (3.5-5.2); Alkaline Phosphatase 83 U/L (35-105); Anion Gap 18.7 (5-19); Aspartate Amino Transferase 22 U/L (0-32); Blood Urea Nitrogen 19 mg/dL (6-20); Calcium 10.1 mg/dL (8.5-10.5); Carbon Dioxide 22 mmol/L (22-29); Chloride 103 mmol/L (98-107); Creatinine Clr Calc Pharmacy 51.1233; Globulin 3.3 g/dL (1.3-4.6); Glomerular Filtration Rate 46.3 mL/min (90-130); Glucose 118 mg/dL (65-115); Lipase 25 U/L (13-60); Magnesium 2.4 mg/dL (1.7-2.3); Osmolality Calculated 291 mOsm/kg (285-295); Potassium 4.7 mmol/L (3.5-5.1); Sodium 139 mmol/L (136-145); Total Bilirubin 0.5 mg/dL (0.15-1.2); Total Protein 8.1 g/dL (6.6-8.7)
== END 2024-03-22 23:04 | disposition left against medical advice (07) ==
PROVIDERS: Emergency Medicine; Emergency Provider Nurse Practitioner Family; PCP Physician Assistant
DX: Z53.21 Procedure and treatment not carried out due to patient leaving prior to being seen by health care provider (principal)
CPT/HCPCS: 36415; 74018; 80053; 83605; 83690; 83735; 85025

== ENCOUNTER 2024-03-24 12:07 | Emergency (ER) | payer MEDICARE, MEDICAID, SELFPAY ==
[2023-10-05 11:47] VITALS: BP 131/76; BMI 30.5
[2024-03-24 12:22] VITALS: BP 161/89; PULSE 74; RESP 15; TEMP 36.4; O2SAT 97
--- NOTE | 2024-03-24 13:02 | CTR_ITS ---
PROCEDURE INFORMATION: Exam: CT Abdomen And Pelvis Without Contrast Exam date and time: 03/24/2024 1:30 PM Age: 58 years old Clinical indication: Abdominal pain; Generalized; Prior surgery; Surgery date: 6+ months; Surgery type: Bowel resection, gb, c section, appy, TECHNIQUE: Imaging protocol: Computed tomography of the abdomen and pelvis without contrast. Radiation optimization: All CT scans at this facility use at least one of these dose optimization techniques: automated exposure control; mA and/or kV adjustment per patient size (includes targeted exams where dose is matched to clinical indication); or iterative reconstruction. COMPARISON: CT abdomen pelvis wo con [id number] 01/16/2024 4:57 PM RADIATION DOSE METRICS: Total DLP (mGy-cm): 1061.5 FINDINGS: Lungs: There is subpleural atelectasis of the dependent portions of the lungs. Unchanged calcified pulmonary granuloma right lower lobe. Liver: There is a diffuse decrease in hepatic parenchymal density, consistent with fatty infiltration. Gallbladder and bile ducts: There has been a cholecystectomy. There is no common bile duct dilation. Pancreas: The pancreas is normal. Spleen: The spleen is normal. Adrenal glands: The adrenal glands are normal. Kidneys and ureters: There is a 3 mm nonobstructive calculus lower pole left kidney. There is no evidence of hydronephrosis. Stomach and bowel: There is new long segment of wall thickening of distal small bowel with hazy infiltration the previously noted submucosal fat deposition compatible with new/active inflammatory bowel disease superimposed on sequela of chronic inflammation. There is no evidence of intestinal perforation or obstruction. There is no evidence of colitis/diverticulitis. Appendix: There has been an appendectomy. Intraperitoneal space: Postoperative scar in the epigastrium, umbilical region and infraumbilical midline abdomen. There is trace fluid in the lower abdomen and the pelvis. No abscess or free intraperitoneal air. Vasculature: Unremarkable.No abdominal aortic aneurysm. Lymph nodes: Unremarkable.No enlarged lymph nodes. Urinary bladder: The bladder is normal. Reproductive: There has been a hysterectomy. Bones/joints: Unremarkable. No acute fracture. Soft tissues: Partially imaged bilateral breast implants. CT/CT abdomen pelvis wo con [id number] IMPRESSION: There is new long segment of wall thickening of distal small bowel with hazy infiltration the previously noted submucosal fat deposition compatible with new/active inflammatory small bowel disease superimposed on sequela of chronic inflammation. No bowel obstruction.
[2024-03-24 13:22] LABS: Basophils % 0.4 %; Eosinophils # 0.1 10^3/uL (0.0-0.8); Eosinophils % 2.8 %; Hematocrit 43.3 % (36-47); Lymphocytes # 1.7 10^3/uL (0.8-4.8); Lymphocytes % 36.9 %; Mean Corpuscular HGB Conc 32.3 g/dL (30-55); Mean Corpuscular Hemoglobin 26.9 pg (27-33); Mean Corpuscular Volume 83.3 fl (85-98); Mean Platelet Volume 11.5 fL (7.4-10.4); Monocytes # 0.4 10^3/uL (0.2-0.9); Monocytes % 8.3 %; Neutrophils # 2.42 10^3/uL (1.8-7.7); Neutrophils % 51.4 %; Nucleated Red Blood Cells % 0 %; Platelet Count 191 10^3/cmm (157-399); White Blood Count 4.71 10^3/uL (3.29-11.43)
--- NOTE | 2024-03-24 13:31 | ED_ITS ---
HPI - Abdominal Pain 2 General: Chief Complaint: Abdominal Pain Stated Complaint: sent by tayler saha pain Time Seen by Provider: 03/24/24 12:59 Source: patient Mode of arrival: ambulatory History of Present Illness: 58-year-old female with a history of rec urrent bowel obstruction presents emergency room with a 2-day history of worsening abdominal pain 1 episode of vomiting multiple episodes of loose stools abdomen has become distended and painful. Subjective low-grade fever denies dysuria urgency or frequency MD elicited complaint: abdominal pain Onset (ago): day(s) Pain Consistency: constant Location: Diffuse Severity: moderate Quality: cramping Exacerbating factors: nothing Relieving factors: nothing Associated Symptoms: Reports bloating, change in bowel habits, change in stool character, GI cramping, diarrhea, nausea, poor appetite and vomiting; Denies anorexia, belching, chills, coffee ground emesis, constipation, dyspepsia, dysuria, excessive flatus, fever(s), heartburn, hematochezia, hematuria, hematemesis, fecal incontinence, loose stools, melena and syncope Review of Systems 2 Const: Denies: fever(s) or chills Card: Denies: syncope Resp: Denies: dyspnea GI: Reports: abdominal pain, nausea, vomiting, diarrhea, bloating, GI cramping, change in bowel habits and change in stool character; Denies: hematemesis, coffee ground emesis, heartburn, constipation, belching, excessive flatus, fecal incontinence, hematochezia or melena : Denies: dysuria or hematuria Musc: Denies: neck pain or back pain Skin/Breast: Denies: rash PFSH ED 2 PFSH: Medical History History of Holter monitoring 04/2023 Baseline rhythm is sinus rhythm. HR ranged from 56-135, avg 80 bpm, nnspecified patient symptom correlated with isolated PVC History of electroencephalogram 05/2023 IMPRESSION: This was a normal routine EEG, awake and drowsy and asleep, with no behavioral or electrographic epileptiform activity. A normal EEG does not exclude a diagnosis of epilepsy. Small bowel obstruction DCIS (ductal carcinoma in situ) ER/ND negative, tamoxifen History of cardiac arrest Benign essential HTN Breast cancer Chronic migraine without aura, intractable, with status migrainosus Recurrent syncope History of colon polyps Psychiatric care Inappropriate sinus tachycardia Malignant hypertension History of malignant melanoma Fear of insects (Unknown) Specifically tics Major depressive disorder, recurrent, severe with psychotic symptoms [facility] managing Lumbar radiculitis Herpes genitalia Hot flashes Irritable bowel disease Depression with anxiety HTN (hypertension) with goal to be determined Borderline personality disorder Functional neurological symptom disorder with attacks or seizures Dr. Chepe Pickering-- Neurology [facility] Surgical History History of appendectomy (01/2021) History of exploratory laparotomy (01/2021) with lysis of adhesions, performed due to SBO Hx of bilateral mastectomy History of colonoscopy Intra-abdominal adhesions (~10/2020) adhesiolysis / incidental appendectomy-- at same time as bowel obstruction H/O tubal ligation (~2008) Hx of abdominoplasty (~2009) History of augmentation of both breasts 2012 silicone implants, removed at time of mastectomies Hx of section (~2008) x 1 Hx of hernia repair (~2012) ventral (patient thinks mesh was used) Hx of hysterectomy (~2008) CHRISTINA-- ovaries spared. Hx of decompressive lumbar laminectomy ---2014 L5-S1 [facility] IN [place], [place]. ---10/20/2020 Revision; Dr Dalia ALBERT Family History Mother Breast cancer dx age unknown Hypertension Grandmother Breast cancer Maternal--dx age 60's Hypertension Maternal and Paternal Sister No problems noted. Daughter Uterine cancer dx age 28 Father Diabetes Hypertension Stroke Grandfather Hypertension maternal and Paternal Denies family history of Colon cancer Ovarian cancer Social History Smoking and tobacco/nicotine status: never used tobacco/nicotine Alcohol intake: current Alcohol intake frequency: holidays/special occasions only Alcohol type: wine Substance/Drug Use: never Do you think of yourself as: Straight/Heterosexual Physical Exam 2 Const: GENERAL APPEARANCE: cooperative and comfortable O RIENTATION/CONSCIOUSNESS: Yes awake, Yes oriented to person, Yes oriented to place and Yes oriented to time HENMT: COMMON NORMALS: normocephalic, atraumatic and hearing grossly normal bilaterally HEAD & SCALP: normocephalic and atraumatic Resp: COMMON NORMALS: normal respiratory effort, No retractions, No use of accessory muscles and clear to auscultation bilaterally AUSCULTATION: clear to auscultation bilaterally Cardio: COMMON NORMALS: regular rate, regular rhythm and No murmurs present (Cardio) RATE: regular rate RHYTHM: regular rhythm GI: AUSCULTATION: Yes Hypoactive bowel sounds present PALPATION: Yes Tenderness to palpation present (GI) and No Guarding due to palpation present (GI) PERCUSSION: tympanic to percussion Extremity: COMMON NORMALS: normal to inspection, capillary refill normal, no clubbing, cyanosis or edema, no calf tenderness and no pedal edema Neuro: SENSORIUM/ORIENTATION: Yes oriented to person, Yes oriented to place and Yes oriented to time Skin: COMMON NORMALS: no rashes or lesions noted GENERAL SKIN EXAM: no rashes or lesions noted Course 2 Vital Signs: Vital signs: Vital Signs Temperature 97.6 F 03/24/24 12:22 Pulse Rate 72 03/24/24 16:33 Respiratory Rate 15 03/24/24 12:22 Blood Pressure 131/92 03/24/24 16:33 Pulse Oximetry 97 03/24/24 16:33 Oxygen Delivery Me thod Room Air 03/24/24 12:22 MDM - Abdominal Pain Medical Decision Making Small bowel enteritis no sign of bowel obstruction. Patient has had problems with enteritis in the past. Will put her on a short course of steroids given promethazine and hydrocodone to use for pain. Clinical diet for 24 to 48 hours and advance as tolerated she has any colonoscopy scheduled later this week encouraged her to follow-up with her surgeon early in the week reviewed with him the findings from the emergency room to see if they still wish to proceed with the scheduled colonoscopy they may wish to put it off for a time. Recheck fasting worsening symptoms. She is also relatively hyponatremic however she is asymptomatic of this at this time Medical Records I reviewed the patient's medical records. Lab Data I reviewed the patient's lab results. 03/24/24 13:16 03/24/24 13:16 Labs/Radiology: Radiology Impressions Abdomen/Pelvis CT 03/24/24 13:02 IMPRESSION: There is new long segment of wall thickening of distal small bowel with hazy infiltration the previously noted submucosal fat deposition compatible with new/active inflammatory small bowel disease superimposed on sequela of chronic inflammation. No bowel obstruction. Laboratory Results WBC 4.71 10^3/uL (3.29-11.43) 03/24/24 13:16 RBC 5.20 10^6/uL (3.85-5.65) 03/24/24 13:16 Hgb 14.00 g/dL (11.27-16.99) 03/24/24 13:16 Hct 43.3 % (36-47) 03/24/24 13:16 MCV 83.3 fl (85-98) L 03/24/24 13:16 MCH 26.9 pg (27-33) L 03/24/24 13:16 MCHC 32.3 g/dL (30-55) 03/24/24 13:16 RDW 14.0 % (12.1-15.1) 03/24/24 13:16 Plt Count 191 10^3/cmm (157-399) 03/24/24 13:16 MPV 11.5 fL (7.4-10.4) H 03/24/24 13:16 Neut % (Auto) 51.4 % 03/24/24 13:16 Lymph % (Auto) 36.9 % 03/24/24 13:16 [place] % (Auto) 8.3 % 03/24/24 13:16 Eos % (Auto) 2.8 % 03/24/24 13:16 Baso % (Auto) 0.4 % 03/24/24 13:16 Neut # (Auto) 2.42 10^3/uL (1.8-7.7) 03/24/24 13:16 Lymph # (Auto) 1.7 10^3/uL (0.8-4.8) 03/24/24 13:16 [place] # (Auto) 0.4 10^3/uL (0.2-0.9) 03/24/24 13:16 Eos # (Auto) 0.1 10^3/uL (0.0-0.8) 03/24/24 13:16 Baso # (Auto) 0.0 10^3/uL (0.0-0.1) 03/24/24 13:16 Nucleated RBC % (auto) 0 % 03/24/24 13:16 Nucleated RBCs # 0.0 /100WBC 03/24/24 13:16 Sodium 137 mmol/L (136-145) 03/24/24 13:16 Potassium 4.6 mmol/L (3.5-5.1) 03/24/24 13:16 Chloride 102 mmol/L (98-107) 03/24/24 13:16 Carbon Dioxide 25 mmol/L (22-29) 03/24/24 13:16 Anion Gap 14.6 (5-19) 03/24/24 13:16 BUN 21 mg/dL (6-20) H 03/24/24 13:16 Creatinine 1.2 mg/dL (0.5-0.9) H 03/24/24 13:16 GFR Calculation 46.3 mL/min (90-130) L 03/24/24 13:16 Glucose 86 mg/dL (65-115) 03/24/24 13:16 Calculated Osmolality 286 mOsm/kg (285-295) 03/24/24 13:16 Lactic Acid 0.8 mmol/L (0.5-2.2) 03/24/24 13:16 Calcium 9.2 mg/dL (8.5-10.5) 03/24/24 13:16 Total Bilirubin 0.5 mg/dL (0.15-1.2) 03/24/24 13:16 AST 20 U/L (0-32) 03/24/24 13:16 ALT 21 U/L (0-33) 03/24/24 13:16 Alkaline Phosphatase 76 U/L (35-105) 03/24/24 13:16 Total Protein 7.4 g/dL (6.6-8.7) 03/24/24 13:16 Albumin 4.4 g/dL (3.5-5.2) 03/24/24 13:16 Globulin 3.0 g/dL (1.3-4.6) 03/24/24 13:16 Urine Color Yellow (Yellow) 03/24/24 13:44 Urine Appearance Clear (CLEAR) 03/24/24 13:44 Urine pH 5 (5-7) 03/24/24 13:44 Ur Specific [place] 1.025 (1.005-1.030) 03/24/24 13:44 Urine Protein Neg (Negative) 03/24/24 13:44 Urine Glucose (UA) Norm (Normal) 03/24/24 13:44 Urine Ketones Negative (Negative) 03/24/24 13:44 Urine Blood Neg (Negative) 03/24/24 13:44 Urine Nitrate Negative (Negative) 03/24/24 13:44 Urine Bilirubin Neg (Negative) 03/24/24 13:44 Urine Urobilinogen Norm mg/dL (Negative) 03/24/24 13:44 Ur Leukocyte Esterase Negative (Negative) 03/24/24 13:44 All radiology interpretation(s) finalized by discharge Discharge Plan Discharge Patient Disposition: Home Clinical Impression: Enteritis of small bowel Condition: Stable Prescriptions: New hydrocodone-acetaminophen 5-325 mg tablet 1 tab PO Q6H PRN (Reason: pain) Qty: 10 0RF promethazine 25 mg tablet 25 mg PO Q6H PRN (Reason: nausea and vomiting) Qty: 20 0RF Medrol (Reggie) 4 mg tablets,dose pack See Rx Instructions .ROUTE .COMPLEX Qty: 21 0RF Rx Instructions: orally per package directions No Action trazodone 100 mg tablet 200 mg PO BEDTIME PRN (Reason: Sleep) Qty: 60 6RF Rx Instructions: Take two tablets at bedtime as needed for sleep sertraline [Zoloft] 50 mg tablet 50 mg PO QAM Qty: 30 4RF Rx Instructions: Take one tablet every morning quetiapine [Seroquel] 25 mg tablet 25 mg PO BID PRN (Reason: anxiety/psychosis) Qty: 60 3RF Rx Instructions: Take one tablet twice per day as needed for anxiety/psychosis quetiapine [Seroquel] 50 mg tablet 50 mg PO BEDTIME Qty: 30 6RF Aimovig Autoinjector 140 mg/mL auto-injector See Rx Instructions .ROUTE .COMPLEX Qty: 1 3RF Dose Instruction: INJECT ONE PEN SUBCUTANEOUSLY ONCE PER MONTH FOR MIGRAINES Rx Instructions: INJECT ONE PEN SUBCUTANEOUSLY ONCE PER MONTH FOR MIGRAINES carvedilol 25 mg tablet 25 mg PO BID Qty: 180 3RF pantoprazole 40 mg tablet,delayed release (DR/EC) 40 mg PO QAM Women's Multivitamin 18 mg iron-400 mcg-500 mg Tablet 1 tab PO DAILY prednisone 20 mg tablet 20 mg PO TID Qty: 15 0RF Rx Instructions: 1 p.o. 3 times daily x3 days, 1 p.o. twice daily x2 days, 1 p.o. daily x2 days promethazine 25 mg tablet 25 mg PO Q6H PRN (Reason: nausea and vomiting) Qty: 20 0RF acyclovir 800 mg tablet 800 mg PO TID PRN (Reason: BREAKOUTS) pregabalin 100 mg capsule 100 mg PO Q12H MDD 2 caps ondansetron 4 mg tablet,disintegrating 4 mg PO Q6H PRN (Reason: nausea and vomiting) Qty: 14 0RF Discharge Orders: Discharge ED (Routine); Ordered 03/24/24 Ordered By: Moy Galvan Referrals: Roseanne Marin PA [Primary Care Provider] - Discharge Diet: Clear Liquid Discharge Activity: Increase activity as tolerated Patient Instructions: Opioid Safety, Pain Management Activity Restrictions/Additional Instructions: Thank you for choosing [facility] for your healthcare needs today. It is very important that you follow up as instructed or that you return to the Emergency Department should you have concerns or if your condition changes or worsens in any way. You are seen today with enteritis (a small bowel irritation/inflammation). Recommend a short course of steroids clear liquid diet for 48 hours then advance as tolerated. You can use pain and nausea medications as needed. You had mentioned that you have an upcoming colonoscopy with Dr. Lambert. You should contact them as soon as you are able inform him of the findings on the CT to see if he wishes to continue with the colonoscopy as scheduled or wishes to put it on hold. 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
[2024-03-24 13:41] LABS: Alanine Aminotransferase 21 U/L (0-33); Albumin Level 4.4 g/dL (3.5-5.2); Alkaline Phosphatase 76 U/L (35-105); Anion Gap 14.6 (5-19); Aspartate Amino Transferase 20 U/L (0-32); Blood Urea Nitrogen 21 mg/dL (6-20); Calcium 9.2 mg/dL (8.5-10.5); Carbon Dioxide 25 mmol/L (22-29); Chloride 102 mmol/L (98-107); Creatinine Clr Calc Pharmacy 50.5305; Glomerular Filtration Rate 46.3 mL/min (90-130); Glucose 86 mg/dL (65-115); Osmolality Calculated 286 mOsm/kg (285-295); Potassium 4.6 mmol/L (3.5-5.1); Sodium 137 mmol/L (136-145); Total Bilirubin 0.5 mg/dL (0.15-1.2); Total Protein 7.4 g/dL (6.6-8.7)
[2024-03-24 14:04] LABS: Add Urine Microscopic? NO; Charge for UA Resulting for Rev
[2024-03-24 14:08] LABS: Bilirubin Urine Neg (Negative); Blood Urine Neg (Negative); Glucose Urine UA Norm (Normal); Ketones Urine Negative (Negative); Leukocyte Esterase Urine Negative (Negative); Nitrate Urine Negative (Negative); Protein Urine Neg (Negative); Specific Gravity, Urine 1.025 (1.005-1.030); Urine Appearance Clear (CLEAR); Urine Color Yellow (Yellow); Urobilinogen Urine Norm (Negative); pH Urine 5 (5-7)
[2024-03-24 14:22] LABS: Lactic Sepsis W/Reflex 0.8 mmol/L (0.5-2.2)
[2024-03-24] MEDS: ondansetron 2 mg/ML SDV 2 mL 4 MG IVP (15:45)
[2024-03-24] MEDS: sodium chloride 0.9% 1,000 ML 999 ML IV (15:45)
[2024-03-24 16:33] VITALS: BP 131/92; PULSE 72; O2SAT 97
== END 2024-03-24 16:33 | disposition home or self-care (01) ==
PROVIDERS: Emergency Provider Family Medicine; PCP Physician Assistant
DX: K52.9 Noninfective gastroenteritis and colitis, unspecified (principal); I10 Essential (primary) hypertension; Z85.3 Personal history of malignant neoplasm of breast
CPT/HCPCS: 74176; 80053; 81003; 83605; 85025; 96374; 99285; J2405; J7030

== ENCOUNTER 2024-04-05 20:18 | Emergency (ER) | payer MEDICARE, MEDICAID, SELFPAY ==
[2023-10-05 11:47] VITALS: BP 131/76; BMI 30.5
[2024-04-05 20:20] VITALS: BP 134/83; PULSE 75; RESP 16; TEMP 36.6; O2SAT 98; BMI 34.7
--- NOTE | 2024-04-05 20:44 | W.ED.HA ---
HPI - Headache General: Chief Complaint: Headache Stated Complaint: severe migraine Time Seen by Provider: 04/05/24 20:37 History of Present Illness: 58-year-old female with a history of migraines who follows with Dr. Powell with neurology and receives injections for this who started having a severe migraine headache today at about 4 PM. About 5 hours ago. She took her abortive medications and has had no success. She is having nausea and photophobia. Phonophobia. No focal motor deficits. No altered mental status. Review of Systems Narrative: Constitutional symptoms: Negative except as documented in HPI. Skin symptoms: Negative except as documented in HPI. Eye symptoms: Negative except as documented in HPI. ENMT symptoms: Negative except as documented in HPI. Respiratory symptoms: Negative except as documented in HPI. Cardiovascular symptoms: Negative except as documented in HPI. Gastrointestinal symptoms: Negative except as documented in HPI. Genitourinary symptoms: Negative except as documented in HPI. Musculoskeletal symptoms: Negative except as documented in HPI. Neurologic symptoms: Negative except as documented in HPI. Psychiatric symptoms: Negative except as documented in HPI. Endocrine symptoms: Negative except as documented in HPI. PFSH ED PFSH: Medical History History of Holter monitoring 04/2023 Baseline rhythm is sinus rhythm. HR ranged from 56-135, avg 80 bpm, nnspecified patient symptom correlated with isolated PVC History of electroencephalogram 05/2023 IMPRESSION: This was a normal routine EEG, awake and drowsy and asleep, with no behavioral or electrographic epileptiform activity. A normal EEG does not exclude a diagnosis of epilepsy. Small bowel obstruction DCIS (ductal carcinoma in situ) ER/DC negative, tamoxifen History of cardiac arrest Benign essential HTN Breast cancer Chronic migraine without aura, intractable, with status migrainosus Recurrent syncope History of colon polyps Psychiatric care Inappropriate sinus tachycardia Malignant hypertension History of malignant melanoma Fear of insects (Unknown) Specifically tics Major depressive disorder, recurrent, severe with psychotic symptoms [facility] managing Lumbar radiculitis Herpes genitalia Hot flashes Irritable bowel disease Depression with anxiety HTN (hypertension) with goal to be determined Borderline personality disorder Functional neurological symptom disorder with attacks or seizures Dr. Chepe Pickering-- Neurology [facility] Surgical History History of appendectomy (01/2021) History of exploratory laparotomy (01/2021) with lysis of adhesions, performed due to SBO Hx of bilateral mastectomy History of colonoscopy Intra-abdominal adhesions (~10/2020) adhesiolysis / incidental appendectomy-- at same time as bowel obstruction H/O tubal ligation (~2008) Hx of abdominoplasty (~2009) History of augmentation of both breasts 2012 silicone implants, removed at time of mastectomies Hx of section (~2008) x 1 Hx of hernia repair (~2012) ventral (patient thinks mesh was used) Hx of hysterectomy (~2008) CHRISTINA-- ovaries spared. Hx of decompressive lumbar laminectomy ---2014 L5-S1 [facility] IN [place], [place]. ---10/20/2020 Revision; Dr Dalia ALBERT Family History Mother Breast cancer dx age unknown Hypertension Grandmother Breast cancer Maternal--dx age 60's Hypertension Maternal and Paternal Sister No problems noted. Daughter Uterine cancer dx age 28 Father Diabetes Hypertension Stroke Grandfather Hypertension maternal and Paternal Denies family history of Colon cancer Ovarian cancer Social History Smoking and tobacco/nicotine status: never used tobacco/nicotine Alcohol intake: current Alcohol intake frequency: holidays/special occasions only Alcohol type: wine Substance/Drug Use: never Do you think of yourself as: Straight/Heterosexual Physical Exam Narrative: EXAM NARRATIVE: General: Alert, no acute distress. Skin: warm and dry Head: Normocephalic Neck: Trachea midline Eye: Extraocular movements are intact. Ears, nose, mouth and throat: Oral mucosa moist Respiratory: Respirations are non-labored Musculoskeletal: Normal ROM Neurological: Alert and oriented, No focal neurological deficit observed. Psychiatric: Cooperative, appropriate mood & affect. Course Vital Signs: Vital signs: Vital Signs Temperature 97.9 F 04/05/24 20:20 Pulse Rate 75 04/05/24 20:20 Respiratory Rate 16 04/05/24 20:20 Blood Pressure 134/83 04/05/24 20:20 Pulse Oximetry 98 04/05/24 20:20 Oxygen Delivery Me thod Room Air 04/05/24 20:20 MDM - Headache Medical Decision Making Assessment and plan: Migraine headache ?IV Depacon, IV fluids, IV Zofran, and IV Toradol here in the emergency room. - Discharged home - Discussed plan with patient. Answered any questions. - Evaluation and treatment of this problem were appropriate in the emergency setting. No radiology studies performed this visit Discharge Plan Discharge Patient Disposition: Home Clinical Impression: Migraine Qualifiers: Migraine type: unspecified Status migrainosus presence: without status migrainosus Intractability: intractable Qualified Code(s): G43.919 - Migraine, unspecified, intractable, without status migrainosus Condition: Stable Prescriptions: No Action trazodone 100 mg tablet 200 mg PO BEDTIME PRN (Reason: Sleep) Qty: 60 6RF Rx Instructions: Take two tablets at bedtime as needed for sleep quetiapine [Seroquel] 50 mg tablet 50 mg PO BEDTIME Qty: 30 6RF quetiapine [Seroquel] 25 mg tablet 25 mg PO BID PRN (Reason: anxiety/psychosis) Qty: 60 3RF Rx Instructions: Take one tablet twice per day as needed for anxiety/psychosis sertraline [Zoloft] 50 mg tablet 50 mg PO QAM Qty: 30 4RF Rx Instructions: Take one tablet every morning carvedilol 25 mg tablet 25 mg PO BID Qty: 180 3RF Aimovig Autoinjector 140 mg/mL auto-injector See Rx Instructions .ROUTE .COMPLEX Qty: 1 0RF Dose Instruction: INJECT 1 PEN SUB-Q ONCE MONTHLY FOR MIGRAINES Rx Instructions: INJECT 1 PEN SUB-Q ONCE MONTHLY FOR MIGRAINES pantoprazole 40 mg tablet,delayed release (DR/EC) 40 mg PO QAM Women's Multivitamin 18 mg iron-400 mcg-500 mg Tablet 1 tab PO DAILY prednisone 20 mg tablet 20 mg PO TID Qty: 15 0RF Rx Instructions: 1 p.o. 3 times daily x3 days, 1 p.o. twice daily x2 days, 1 p.o. daily x2 days promethazine 25 mg tablet 25 mg PO Q6H PRN (Reason: nausea and vomiting) Qty: 20 0RF hydrocodone-acetaminophen 5-325 mg tablet 1 tab PO Q6H PRN (Reason: pain) Qty: 10 0RF promethazine 25 mg tablet 25 mg PO Q6H PRN (Reason: nausea and vomiting) Qty: 20 0RF Medrol (Reggie) 4 mg tablets,dose pack See Rx Instructions .ROUTE .COMPLEX Qty: 21 0RF Rx Instructions: orally per package directions acyclovir 800 mg tablet 800 mg PO TID PRN (Reason: BREAKOUTS) pregabalin 100 mg capsule 100 mg PO Q12H MDD 2 caps ondansetron 4 mg tablet,disintegrating 4 mg PO Q6H PRN (Reason: nausea and vomiting) Qty: 14 0RF Discharge Orders: Discharge ED (Routine); Ordered 04/05/24 Ordered By: Thais Espino Referrals: Roseanne Marin PA [Primary Care Provider] - Discharge Diet: Usual diet Discharge Activity: Increase activity as tolerated Patient Instructions: Migraine Headache (ED) Activity Restrictions/Additional Instructions: Thank you for choosing [facility] for your healthcare needs today. Please realize this is an emergency room and that we are providing you with a medical screening exam and this may not be complete and all inclusive of all the testing and or work up that you may need to determine your ailment or severity of your illness. You have been screened and evaluated and felt safe for discharge. Health conditions do change or evolve sometimes and as such it is important that you follow up with your Primary Doctor to be re checked, 3-5 days is a general good time frame for follow up. 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
[2024-04-05] MEDS: ondansetron 2 mg/ML SDV 2 mL 4 MG IVP (21:15)
[2024-04-05] MEDS: ketorolac 30 mg/mL INJ IVP (21:16)
[2024-04-05] MEDS: valproic acid inj 500 MG in sodium chloride 0.9% 50 ML 55 MG IV (21:17)
[2024-04-05] MEDS: sodium chloride 0.9% 1,000 ML 999 ML IV (21:17)
[2024-04-05 22:25] VITALS: PULSE 70; RESP 16; O2SAT 99
== END 2024-04-05 22:28 | disposition home or self-care (01) ==
PROVIDERS: Emergency Provider Emergency Medicine; PCP Physician Assistant
DX: G43.919 Migraine, unspecified, intractable, without status migrainosus (principal); I10 Essential (primary) hypertension; Z85.3 Personal history of malignant neoplasm of breast
CPT/HCPCS: 96365; 96375; 99284; J1885; J2405; J3490; J7030

== ENCOUNTER 2024-05-29 12:12 | Inpatient (IN) | payer MEDICARE, MEDICAID, SELFPAY ==
[2023-10-05 11:47] VITALS: BP 131/76; BMI 30.5
[2024-05-29] VITALS (8 sets, daily range): BP systolic 130–191; BP diastolic 85–106; PULSE 79–98; RESP 17–22; TEMP 36.8–36.9; O2SAT 94–97; BMI 34.2
--- NOTE | 2024-05-29 12:30 | CT_ITS ---
WS: [id number] CT ABDOMEN AND PELVIS WITH CONTRAST HISTORY: abdominal pain, vomiting, diarrhea TECHNIQUE: Imaging performed of the abdomen and pelvis with IV contrast. Single phase imaging of the abdomen. Coronal and sagittal reformats are submitted. All CT scans at [facility] use at [address] one of these dose optimization techniques: automated exposure control; mA and/or kV adjustment per patient size (includes targeted exams where dose is matched to clinical indication); or iterative re construction. IV CONTRAST: Omnipaque 350; 100 mL IV. Oral contrast: No DLP: 760.43 mGy.cm COMPARISON: 03/24/2024, 01/16/2024 Lower thorax: Bilateral breast implants. Heart is normal size. No hiatal hernia. Liver/biliary system: Normal size with no intrahepatic dilatation. Gallbladder: Prior cholecystectomy. Pancreas: Normal size pancreas and pancreatic duct. No adjacent inflammation. Spleen: Normal size spleen. No mass or infarct. Adrenal glands: Normal. Right kidney: Normal. Left kidney: Stable cortical mid kidney measures 5 mm. Nonobstructing calcification in the lower pole . Aorta: Mild atherosclerosis aorta. Mesenteric arteries are well opacified. Lymphadenopathy: None. Free fluid: None. GI tract: Stomach is significantly distended with food products and fluid and air. There is fluid dis tention through the duodenum into the jejunum. Beginning within the jejunum there is hyperemia of the jejunum and also increased fluid within the small bowel. The distal small bowel is less distended. N o transition point is identified. There is submucosal fat within the distal small bowel extending thr ough the terminal ileum suggesting this is a chronic process. Also noted on the prior CT of 01/16/2024 and 03/24/2024. Colon is not distended. Abdominal wall: Small ventral abdominal wall hernia. Pelvis: Prior hysterectomy. Urinary bladder is contracted. No free fluid or adenopathy. Bones: Early changes of osteonecrosis at the femoral heads. CT/CT abdomen pelvis w con* [id number] IMPRESSION: 1. Significant distention of the stomach, duodenum and portions of the jejunum with fluid consistent with partial small bowel obstruction. There is mild hype remia also of the jejunum. The transition point is not identified. Distal small bowel contain submucosal fat and the lumen is narrowed. Submucosal fat is seen with a more chronic process. There may be adhesions or stricture present causi ng the obstruction. No ascites or abscess. 2. No free air. 3. Prior cholecystectomy and hysterectomy. 4. Bilateral breast implants. 5. Prior appendectomy.
--- NOTE | 2024-05-29 12:31 | W.ED.NAVMDI ---
HPI - Nausea/Vomiting/Diarrhea General: Chief complaint: Abdominal Pain Stated complaint: Vomiting, diarrhea for two weeks Time Seen by Provider: 05/29/24 12:21 Source: patient Mode of arrival: ambulatory Limitations: no limitations History of Present Illness: Patient is a nice 58-year-old female presents to ED today with a complaint of nausea, vomiting, diarrhea, and abdominal pain over the past 2 weeks. Patient states she is having approximately 1-2 episodes of vomiting daily and 10+ watery stools. She complains of abdominal pain and cramping. She states she does have a history of a bowel obstruction requiring surgery and states her symptoms then feel similar to now. She has not been running fevers. No known poor food exposures. No recent antibiotic use. Previous abdominal surgeries include exploratory laparotomy with lysis of adhesions, hysterectomy, tubal ligation, ventral hernia repair, cholecystectomy. PMH per patient includes HTN, chronic back pain, hernia/GERD, lower extremity swelling that she treats with Lasix/potassium (no history of CHF), and insomnia. MD elicited complaint: nausea, vomiting, diarrhea and abdominal pain Pertinent past history: bowel obstruction Onset (ago): week(s) Description of diarrhea: watery Associated nausea: Yes Associated abdominal pain: Yes Location of pain: Diffuse Radiation: diffuse Severity: moderate Quality: cramping Exacerbating factors: eating Relieving factors: none Associated symtoms: Reports nausea; Denies chest pain, dysuria, fatigue, headache(s) or malaise Related Data Home Medications Medication Instructions Recorded Confirmed acyclovir 800 mg tablet 800 mg PO TID PRN BREAKOUTS 09/02/22 05/29/24 pregabalin 100 mg capsule 100 mg PO Q12H 09/02/22 05/29/24 pantoprazole 40 mg tablet,delayed 40 mg PO QAM 06/14/23 05/29/24 release furosemide 20 mg tablet 20 mg PO DAILY PRN Edema 05/29/24 05/29/24 phentermine 37.5 mg tablet 37.5 mg PO DAILY 05/29/24 05/29/24 potassium chloride 10 mEq 10 meq PO DAILY PRN Edema 05/29/24 05/29/24 tablet,extended release Previous Rx's Medication Instructions Recorded ondansetron 4 mg disintegrating 4 mg PO Q6H PRN nausea and 10/04/23 tablet vomiting #14 tabs promethazine 25 mg tablet 25 mg PO Q6H PRN nausea and 01/16/24 vomiting #20 tabs carvedilol 25 mg tablet 25 mg PO BID #180 tabs 01/30/24 trazodone 100 mg tablet 200 mg (2 x 100 mg) PO BEDTIME PRN 02/29/24 Sleep #60 tabs quetiapine 25 mg tablet (Seroquel) 25 mg PO BID PRN anxiety/psychosis 04/05/24 #60 tabs quetiapine 50 mg tablet (Seroquel) 50 mg PO BEDTIME #30 tabs 04/05/24 sertraline 50 mg tablet (Zoloft) 50 mg PO QAM #30 tabs 04/05/24 erenumab-aooe 140 mg/mL See Rx Instructions .Route 05/28/24 subcutaneous auto-injector .COMPLEX #1 mL (Aimovig Autoinjector) Allergies Allergy/AdvReac Type Severity Reaction Status Date / Time risperidone [From Risperdal] Allergy Severe ADR-Faintin Verified 04/05/24 13:07 g dexchlorpheniramine Allergy ADR-Faintin Verified 04/05/24 13:07 [From Rymed g (dexchlorpheniramine-PE)] phenylephrine Allergy ADR-Faintin Verified 04/05/24 13:07 [From Rymed g (dexchlorpheniramine-PE)] Sulfa (Sulfonamide Allergy ALGY-Hives Verified 04/05/24 13:07 Antibiotics) amlodipine AdvReac Mild Unknown Verified 04/05/24 13:07 Review of Systems Const: Denies: fever(s), chills, body aches, fatigue or malaise Card: Denies: chest pain Resp: Denies: dyspnea GI: Reports: abdominal pain, nausea, vomiting, diarrhea and GI cramping; Denies: hematemesis, rectal pain, hematochezia or melena : Denies: flank pain, difficulty voiding, dysuria, urinary frequency, urinary urgency or urinary hesitancy Musc: Denies: neck pain, back pain, extremity pain or joint pain Skin/Breast: Denies: rash Neuro: Denies: headache(s), numbness in extremities, weakness in extremities or sensory changes PFSH ED PFSH: Medical History History of Holter monitoring 04/2023 Baseline rhythm is sinus rhythm. HR ranged from 56-135, avg 80 bpm, nnspecified patient symptom correlated with isolated PVC History of electroencephalogram 05/2023 IMPRESSION: This was a normal routine EEG, awake and drowsy and asleep, with no behavioral or electrographic epileptiform activity. A normal EEG does not exclude a diagnosis of epilepsy. Small bowel obstruction DCIS (ductal carcinoma in situ) ER/AK negative, tamoxifen History of cardiac arrest Benign essential HTN Breast cancer Chronic migraine without aura, intractable, with status migrainosus Recurrent syncope History of colon polyps Psychiatric care Inappropriate sinus tachycardia Malignant hypertension History of malignant melanoma Fear of insects (Unknown) Specifically tics Major depressive disorder, recurrent, severe with psychotic symptoms [facility] managing Lumbar radiculitis Herpes genitalia Hot flashes Irritable bowel disease Depression with anxiety HTN (hypertension) with goal to be determined Borderline personality disorder Functional neurological symptom disorder with attacks or seizures Dr. Chepe Pickering-- Neurology [facility] Surgical History History of appendectomy (01/2021) History of exploratory laparotomy (01/2021) with lysis of adhesions, performed due to SBO Hx of bilateral mastectomy History of colonoscopy Intra-abdominal adhesions (~10/2020) adhesiolysis / incidental appendectomy-- at same time as bowel obstruction H/O tubal ligation (~2008) Hx of abdominoplasty (~2009) History of augmentation of both breasts 2013 silicone implants, removed at time of mastectomies Hx of section (~2008) x 1 Hx of hernia repair (~2012) ventral (patient thinks mesh was used) Hx of hysterectomy (~2008) CHRISTINA-- ovaries spared. Hx of decompressive lumbar laminectomy ---2014 L5-S1 [facility] IN [place], [place] ---10/20/2020 Revision; Dr Dalia ALBERT Family History Mother Breast cancer dx age unknown Hypertension Grandmother Breast cancer Maternal--dx age 60's Hypertension Maternal and Paternal Sister No problems noted. Daughter Uterine cancer dx age 28 Father Diabetes Hypertension Stroke Grandfather Hypertension maternal and Paternal Denies family history of Colon cancer Ovarian cancer Social History (Reviewed 05/29/24 @ 12:34 by GLADIS Staples Smoking and tobacco/nicotine status: never used tobacco/nicotine Alcohol intake: current Alcohol intake frequency: holidays/special occasions only Alcohol type: wine Substance/Drug Use: never Do you think of yourself as: Straight/Heterosexual Physical Exam Const: COMMON NORMALS: no acute distress, patient oriented x3, no limitations, alert and well nourished GENERAL APPEARANCE: cooperative NUTRITIONAL APPEARANCE: overweight ORIENTATION/CONSCIOUSNESS: Yes awake, Yes oriented to person, Yes oriented to place and Yes oriented to time Eye: COMMON NORMALS: no scleral icterus Resp: COMMON NORMALS: normal respiratory effort and clear to auscultation bilaterally AUSCULTATION: clear to auscultation bilaterally Cardio: COMMON NORMALS: regular rate and regular rhythm RATE: regular rate RHYTHM: regular rhythm GI: COMMON NORMALS: Soft to palpation, No hepatosplenomegaly present and no masses INSPECTION: Yes normal to inspection and No abdominal distension AUSCULTATION: Yes Hypoactive bowel sounds present PALPATION: Yes Soft to palpation, Yes Tenderness to palpation present (GI) (diffusely), No Rigid due to palpation and Yes No hepatosplenomegaly present : COMMON NORMALS: Yes no CVA tenderness BLADDER/KIDNEY EXAM: Yes no CVA tenderness Back/Pelvis: COMMON NORMALS: no CVA tenderness and thoracic and lumbar spine normal to inspection Extremity: GENERAL: Yes normal exam except as noted Neuro: BLAINE COMA SCALE: document GCS findings [place]idan coma scale eye opening: Spontaneous Bliane coma scale verbal response: Orientated Blaine coma scale motor response: Obey commands Sheridan coma scale total score: 15 COMMON NORMALS: patient oriented x3, moves all extremities, no focal motor deficits, no sensory deficits noted and gait normal SENSORIUM/ORIENTATION: Yes alert, Yes oriented to person, Yes oriented to place and Yes oriented to time Skin: COMMON NORMALS: no rashes or lesions noted GENERAL SKIN EXAM: no rashes or lesions noted Course Consultations: Consultation #1: Dr. Segura-recommends NG tube, 1L fluid bolus, and 150cc/hr maintenance fluids and recommends admission to hospitalist and he will consult Consultation #2: Dr. Cardenas-accepts hospitalization, recommends D5LR maintenance fluids, 1g Rocephin every 24 hours for her UTI Vital Signs: Vital signs: Vital Signs Temperature 98.2 F 05/29/24 12:15 Pulse Rate 91 05/29/24 13:51 Respiratory Rate 18 05/29/24 12:15 Blood Pressure 168/106 05/29/24 13:51 Pulse Oximetry 94 05/29/24 13:51 Oxygen Delivery Me thod Room Air 05/29/24 13:51 MDM - Nausea/Vomiting/Diarrhea Medical Decision Making Patient 58-year-old female here for diffuse abdominal pain, nausea, vomiting, diarrhea over the past 2 weeks. She has a history of SBO and multiple previous abdominal surgeries. CT scan today showing a significantly distended stomach with findings consistent for a partial small bowel obstruction. She also has a UTI. Remainder of blood work overall is unremarkable. She will be admitted to hospitalist with Dr. Segura to consult. Dr. Pereyra aware of patient will place admit orders. Medical Records I reviewed the patient's medical records. Lab Data I reviewed the patient's lab results. 05/29/24 12:51 05/29/24 12:51 Radiology Impressions Abdomen/Pelvis CT 05/29/24 12:30 IMPRESSION: 1. Significant distention of the stomach, duodenum and portions of the jejunum with fluid consistent with partial small bowel obstruction. There is mild hyperemia also of the jejunum. The transition point is not identified. Distal small bowel contain submucosal fat and the lumen is narrowed. Submucosal fat is seen with a more chronic process. There may be adhesions or stricture present causing the obstruction. No ascites or abscess. 2. No free air. 3. Prior cholecystectomy and hysterectomy. 4. Bilateral breast implants. 5. Prior appendectomy. Laboratory Results WBC 5.20 10^3/uL (3.29-11.43) 05/29/24 12:51 RBC 4.64 10^6/uL (3.85-5.65) 05/29/24 12:51 Hgb 12.80 g/dL (11.27-16.99) 05/29/24 12:51 Hct 41.3 % (36-47) 05/29/24 12:51 MCV 89.0 fl (85-98) 05/29/24 12:51 MCH 27.6 pg (27-33) 05/29/24 12:51 MCHC 31.0 g/dL (30-55) 05/29/24 12:51 RDW 13.9 % (12.1-15.1) 05/29/24 12:51 Plt Count 155 10^3/cmm (157-399) L 05/29/24 12:51 MPV 11.8 fL (7.4-10.4) H 05/29/24 12:51 Neut % (Auto) 62.3 % 05/29/24 12:51 Lymph % (Auto) 28.5 % 05/29/24 12:51 [place] % (Auto) 6.9 % 05/29/24 12:51 Eos % (Auto) 1.7 % 05/29/24 12:51 Baso % (Auto) 0.6 % 05/29/24 12:51 Neut # (Auto) 3.24 10^3/uL (1.8-7.7) 05/29/24 12:51 Lymph # (Auto) 1.5 10^3/uL (0.8-4.8) 05/29/24 12:51 [place] # (Auto) 0.4 10^3/uL (0.2-0.9) 05/29/24 12:51 Eos # (Auto) 0.1 10^3/uL (0.0-0.8) 05/29/24 12:51 Baso # (Auto) 0.0 10^3/uL (0.0-0.1) 05/29/24 12:51 Nucleated RBC % (auto) 0 % 05/29/24 12:51 Nucleated RBCs # 0.0 /100WBC 05/29/24 12:51 Sodium 140 mmol/L (136-145) 05/29/24 12:51 Potassium 4.0 mmol/L (3.5-5.1) 05/29/24 12:51 Chloride 107 mmol/L (98-107) 05/29/24 12:51 Carbon Dioxide 20 mmol/L (22-29) L 05/29/24 12:51 Anion Gap 17.0 (5-19) 05/29/24 12:51 BUN 12 mg/dL (6-20) 05/29/24 12:51 Creatinine 1.0 mg/dL (0.5-0.9) H 05/29/24 12:51 GFR Calculation 57.1 mL/min (90-130) L 05/29/24 12:51 Glucose 82 mg/dL (65-115) 05/29/24 12:51 Calculated Osmolality 289 mOsm/kg (285-295) 05/29/24 12:51 Calcium 8.7 mg/dL (8.5-10.5) 05/29/24 12:51 Total Bilirubin 0.4 mg/dL (0.15-1.2) 05/29/24 12:51 AST 15 U/L (0-32) 05/29/24 12:51 ALT 18 U/L (0-33) 05/29/24 12:51 Alkaline Phosphatase 86 U/L (35-105) 05/29/24 12:51 Total Protein 6.4 g/dL (6.6-8.7) L 05/29/24 12:51 Albumin 3.8 g/dL (3.5-5.2) 05/29/24 12:51 Globulin 2.6 g/dL (1.3-4.6) 05/29/24 12:51 Lipase 24 U/L (13-60) 05/29/24 12:51 Urine Color Yellow (Yellow) 05/29/24 12:42 Urine Appearance Cloudy (CLEAR) A 05/29/24 12:42 Urine pH 6 (5-7) 05/29/24 12:42 Ur Specific [place] 1.025 (1.005-1.030) 05/29/24 12:42 Urine Protein Trace (Negative) 05/29/24 12:42 Urine Glucose (UA) Norm (Normal) 05/29/24 12:42 Urine Ketones Negative (Negative) 05/29/24 12:42 Urine Blood 2+ (Negative) H 05/29/24 12:42 Urine Nitrate Negative (Negative) 05/29/24 12:42 Urine Bilirubin Neg (Negative) 05/29/24 12:42 Urine Urobilinogen Norm mg/dL (Negative) 05/29/24 12:42 Ur Leukocyte Esterase 1+ (Negative) H 05/29/24 12:42 Urine RBC 5-10 /hpf (0-2) H 05/29/24 12:42 Urine WBC >100 /hpf (0-5) H 05/29/24 12:42 Ur Squamous Epith Cells 5-10 /hpf (0-5) H 05/29/24 12:42 Amorphous Sediment Not Reportable 05/29/24 12:42 Urine Bacteria 2+ /hpf (NONE) H 05/29/24 12:42 Urine Mucus 1+ /hpf 05/29/24 12:42 All radiology interpretation(s) finalized by discharge Discharge Plan Discharge Patient Disposition: Admitted As Inpatient Clinical Impression: Partial small bowel obstruction, Acute cystitis without hematuria Condition: Stable Prescriptions: No Action trazodone 100 mg tablet 200 mg PO BEDTIME PRN (Reason: Sleep) Qty: 60 6RF Rx Instructions: Take two tablets at bedtime as needed for sleep quetiapine [Seroquel] 50 mg tablet 50 mg PO BEDTIME Qty: 30 6RF quetiapine [Seroquel] 25 mg tablet 25 mg PO BID PRN (Reason: anxiety/psychosis) Qty: 60 3RF Rx Instructions: Take one tablet twice per day as needed for anxiety/psychosis sertraline [Zoloft] 50 mg tablet 50 mg PO QAM Qty: 30 4RF Rx Instructions: Take one tablet every morning carvedilol 25 mg tablet 25 mg PO BID Qty: 180 3RF Aimovig Autoinjector 140 mg/mL auto-injector See Rx Instructions .ROUTE .COMPLEX Qty: 1 0RF Dose Instruction: INJECT 1 PEN SUB-Q ONCE MONTHLY FOR MIGRAINES Rx Instructions: INJECT 1 PEN SUB-Q ONCE MONTHLY FOR MIGRAINES pantoprazole 40 mg tablet,delayed release (DR/EC) 40 mg PO QAM Women's Multivitamin 18 mg iron-400 mcg-500 mg Tablet 1 tab PO DAILY prednisone 20 mg tablet 20 mg PO TID Qty: 15 0RF Rx Instructions: 1 p.o. 3 times daily x3 days, 1 p.o. twice daily x2 days, 1 p.o. daily x2 days promethazine 25 mg tablet 25 mg PO Q6H PRN (Reason: nausea and vomiting) Qty: 20 0RF hydrocodone-acetaminophen 5-325 mg tablet 1 tab PO Q6H PRN (Reason: pain) Qty: 10 0RF promethazine 25 mg tablet 25 mg PO Q6H PRN (Reason: nausea and vomiting) Qty: 20 0RF Medrol (Reggie) 4 mg tablets,dose pack See Rx Instructions .ROUTE .COMPLEX Qty: 21 0RF Rx Instructions: orally per package directions acyclovir 800 mg tablet 800 mg PO TID PRN (Reason: BREAKOUTS) pregabalin 100 mg capsule 100 mg PO Q12H MDD 2 caps ondansetron 4 mg tablet,disintegrating 4 mg PO Q6H PRN (Reason: nausea and vomiting) Qty: 14 0RF Referrals: Roseanne Marin PA [Primary Care Provider] - Coding Level of Care Code ED Forensic Ballistics Expert for 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
[2024-05-29 12:56] LABS: Basophils % 0.6 %; Eosinophils # 0.1 10^3/uL (0.0-0.8); Eosinophils % 1.7 %; Hematocrit 41.3 % (36-47); Lymphocytes # 1.5 10^3/uL (0.8-4.8); Lymphocytes % 28.5 %; Mean Corpuscular Hemoglobin 27.6 pg (27-33); Mean Platelet Volume 11.8 fL (7.4-10.4); Monocytes # 0.4 10^3/uL (0.2-0.9); Monocytes % 6.9 %; Neutrophils # 3.24 10^3/uL (1.8-7.7); Neutrophils % 62.3 %; Nucleated Red Blood Cells % 0 %; Platelet Count 155 10^3/cmm (157-399); Red Blood Count 4.64 10^6/uL (3.85-5.65); Red Cell Distribution Width 13.9 % (12.1-15.1)
[2024-05-29 13:13] LABS: Alanine Aminotransferase 18 U/L (0-33); Albumin Level 3.8 g/dL (3.5-5.2); Alkaline Phosphatase 86 U/L (35-105); Aspartate Amino Transferase 15 U/L (0-32); Blood Urea Nitrogen 12 mg/dL (6-20); Calcium 8.7 mg/dL (8.5-10.5); Carbon Dioxide 20 mmol/L (22-29); Chloride 107 mmol/L (98-107); Globulin 2.6 g/dL (1.3-4.6); Glomerular Filtration Rate 57.1 mL/min (90-130); Glucose 82 mg/dL (65-115); Lipase 24 U/L (13-60); Osmolality Calculated 289 mOsm/kg (285-295); Sodium 140 mmol/L (136-145); Total Bilirubin 0.4 mg/dL (0.15-1.2); Total Protein 6.4 g/dL (6.6-8.7)
[2024-05-29] MEDS: sodium chloride 0.9% 1,000 ML 999 ML IV (13:17)
[2024-05-29 13:19] LABS: Creatinine Clr Calc Pharmacy 60.2811
[2024-05-29] MEDS: iohexol 350 mg/mL 500 mL Btl (per mL) IV (13:20)
[2024-05-29 13:22] LABS: Charge for UA Resulting for Rev
[2024-05-29 13:31] LABS: Bilirubin Urine Neg (Negative); Blood Urine 2+ (Negative); Glucose Urine UA Norm (Normal); Ketones Urine Negative (Negative); Leukocyte Esterase Urine 1+ (Negative); Nitrate Urine Negative (Negative); Protein Urine Trace (Negative); Specific Gravity, Urine 1.025 (1.005-1.030); UA Manual Slide Review YES; UA Slide Review UA Slide Review Perf; Urine Appearance Cloudy (CLEAR); Urine Color Yellow (Yellow); Urobilinogen Urine Norm (Negative); pH Urine 6 (5-7)
[2024-05-29 13:33] LABS: Add Urine Culture? Yes; Bacteria Urine 2+ /hpf; Mucus Urine 1+ /hpf; WBC Urine >100 /hpf (0-5)
--- NOTE | 2024-05-29 14:47 | P.HP_ITS ---
Providers/Chief Complaint 2 Primary Care Provider: Roseanne Marin Chief Complaint: Vomiting, diarrhea for two weeks History of Present Illness Anne Payne is a 58 year old female presented with chief complaint of recurrent nausea vomiting inability to eat anything. Patient stating that her symptoms started 2 weeks ago but she was waiting come to the hospital, she got better in the middle as well her last meal was yesterday she ate a burger and a steak, she has been diagnosed with type 2 diabetes and started using Ozempic. She decided to come to the hospital today for intractable nausea vomiting. In the ER she has been diagnosed with SBO. NG tube has been placed. D5 LR started. For UTI she is getting ceftriaxone. Review of Systems 2 Const: Denies: fever(s) Eyes: Denies: change in vision ENMT: Denies: throat pain Card: Denies: chest pain Resp: Denies: dyspnea GI: Reports: abdominal pain, nausea and vomiting : Denies: flank pain Medications/Allergies Home Medications Medication Instructions Recorded Confirmed Last Taken Type acyclovir 800 mg tablet 800 mg PO TID PRN BREAKOUTS 09/02/22 05/29/24 Unknown History pregabalin 100 mg capsule 100 mg PO Q12H 09/02/22 05/29/24 05/29/24 History pantoprazole 40 mg tablet,delayed 40 mg PO QAM 06/14/23 05/29/24 05/29/24 History release ondansetron 4 mg disintegrating 4 mg PO Q6H PRN nausea and 10/04/23 05/29/24 Unknown Rx tablet vomiting #14 tabs promethazine 25 mg tablet 25 mg PO Q6H PRN nausea and 01/16/24 05/29/24 Unknown Rx vomiting #20 tabs carvedilol 25 mg tablet 25 mg PO BID #180 tabs 01/30/24 05/29/24 05/29/24 Rx trazodone 100 mg tablet 200 mg (2 x 100 mg) PO BEDTIME PRN 02/29/24 05/29/24 Unknown Rx Sleep #60 tabs quetiapine 25 mg tablet (Seroquel) 25 mg PO BID PRN anxiety/psychosis 04/05/24 05/29/24 Unknown Rx #60 tabs quetiapine 50 mg tablet (Seroquel) 50 mg PO BEDTIME #30 tabs 04/05/24 05/29/24 05/28/24 Rx sertraline 50 mg tablet (Zoloft) 50 mg PO QAM #30 tabs 04/05/24 05/29/24 05/29/24 Rx erenumab-aooe 140 mg/mL See Rx Instructions .Route 05/28/24 05/29/24 04/28/24 Rx subcutaneous auto-injector .COMPLEX #1 mL (Aimovig Autoinjector) furosemide 20 mg tablet 20 mg PO DAILY PRN Edema 05/29/24 05/29/24 Unknown History phentermine 37.5 mg tablet 37.5 mg PO DAILY 05/29/24 05/29/24 05/29/24 History potassium chloride 10 mEq 10 meq PO DAILY PRN Edema 05/29/24 05/29/24 Unknown History tablet,extended release semaglutide 1 mg/dose (4 mg/3 mL) 1 mg SUBCUT Q7D 05/29/24 05/29/24 05/23/24 History subcutaneous pen injector (Ozempic) Allergies Allergy/AdvReac Type Severity Reaction Status Date / Time risperidone [From Risperdal] Allergy Severe ADR-Faintin Verified 04/05/24 13:07 g dexchlorpheniramine Allergy ADR-Faintin Verified 04/05/24 13:07 [From Rymed g (dexchlorpheniramine-PE)] phenylephrine Allergy ADR-Faintin Verified 04/05/24 13:07 [From Rymed g (dexchlorpheniramine-PE)] Sulfa (Sulfonamide Allergy ALGY-Hives Verified 04/05/24 13:07 Antibiotics) amlodipine AdvReac Mild Unknown Verified 04/05/24 13:07 PFSH Acute 2 PFSH: Medical History History of Holter monitoring 04/2023 Baseline rhythm is sinus rhythm. HR ranged from 56-135, avg 80 bpm, nnspecified patient symptom correlated with isolated PVC History of electroencephalogram 05/2023 IMPRESSION: This was a normal routine EEG, awake and drowsy and asleep, with no behavioral or electrographic epileptiform activity. A normal EEG does not exclude a diagnosis of epilepsy. Small bowel obstruction DCIS (ductal carcinoma in situ) ER/OR negative, tamoxifen History of cardiac arrest Benign essential HTN Breast cancer Chronic migraine without aura, intractable, with status migrainosus Recurrent syncope History of colon polyps Psychiatric care Inappropriate sinus tachycardia Malignant hypertension History of malignant melanoma Fear of insects (Unknown) Specifically tics Major depressive disorder, recurrent, severe with psychotic symptoms [facility] managing Lumbar radiculitis Herpes genitalia Hot flashes Irritable bowel disease Depression with anxiety HTN (hypertension) with goal to be determined Borderline personality disorder Functional neurological symptom disorder with attacks or seizures Dr. Chepe Pickering-- Neurology [facility] Surgical History History of appendectomy (01/2021) History of exploratory laparotomy (01/2021) with lysis of adhesions, performed due to SBO Hx of bilateral mastectomy History of colonoscopy Intra-abdominal adhesions (~10/2020) adhesiolysis / incidental appendectomy-- at same time as bowel obstruction H/O tubal ligation (~2008) Hx of abdominoplasty (~2009) History of augmentation of both breasts 2012 silicone implants, removed at time of mastectomies Hx of section (~2008) x 1 Hx of hernia repair (~2012) ventral (patient thinks mesh was used) Hx of hysterectomy (~2008) CHRISTINA-- ovaries spared. Hx of decompressive lumbar laminectomy ---2014 L5-S1 [facility] [place], [place] ---10/20/2020 Revision; Dr Dalia ALBERT Family History Mother Breast cancer dx age unknown Hypertension Grandmother Breast cancer Maternal--dx age 60's Hypertension Maternal and Paternal Sister No problems noted. Daughter Uterine cancer dx age 28 Father Diabetes Hypertension Stroke Grandfather Hypertension maternal and Paternal Denies family history of Colon cancer Ovarian cancer Social History Smoking and tobacco/nicotine status: never used tobacco/nicotine Alcohol intake: current Alcohol intake frequency: holidays/special occasions only Alcohol type: wine Substance/Drug Use: never Do you think of yourself as: Straight/Heterosexual Vitals/I&O/Wt Last Vital Signs Temp 98.2 F 05/29/24 12:15 Pulse 91 05/29/24 13:51 Resp 18 05/29/24 12:15 BP 168/106 05/29/24 13:51 Pulse Ox 94 05/29/24 13:51 O2 Del Method Room Air 05/29/24 13:51 Weight last 48 hrs Weight 82.1 kg Physical Exam 2 Narrative: Patient is awake and alert Clinical signs of mild dehydration Abdomen distended nontender Epistaxis improved NG tube in place GCS 15 S1, S2 Hemodynamically stable Currently on room air Data 05/29/24 12:51 05/29/24 12:51 A&P Assessment and plan (1) Borderline personality disorder: (2) Obesity (BMI 30-39.9): (3) Partial small bowel obstruction: (4) Acute cystitis without hematuria: (5) Dehydration: Plan SBO N.p.o. NG tube placement Start IV fluids Please use opioids and anesthesia basis Hold antihypertensive regimen Hold Ozempic Start D5 LR Will consult general surgery as well Full code DVT prophylaxis: Lovenox If she is not able to eat by we will start PPN with dietary consultation Attestations 2 Medical Necessity Statement*: More than 2 midnights anticipated Diagnoses Borderline personality disorder F60.3 Obesity (BMI 30-39.9) E66.9 Partial small bowel obstruction K56.600 Acute cystitis without hematuria N30.00 Dehydration E86.0
--- NOTE | 2024-05-29 14:50 | XRR_ITS ---
PROCEDURE INFORMATION: Exam: XR Chest Exam date and time: 05/29/2024 2:55 PM Age: 58 years old Clinical indication: Other: N/v; Prior surgery; Surgery date: 6+ months; Surgery type: Spinal, bilat mastectomy; Patient HX: HX of breast cancer; Additional info: Chest pain TECHNIQUE: Imaging protocol: Radiologic exam of the chest. Views: 1 view. COMPARISON: CR XR chest 1V [id number] 04/17/2023 5:42 PM FINDINGS: Lungs: No focal consolidation. Pleural spaces: No evidence of pneumothorax. No evidence of pleural effusion. Heart/Mediastinum: Cardiomediastinal silhouette is within normal limits. Enteric tube in place with tip in the region of the gastric body and side hole distal to the GE junction. Bones/joints: No evidence of acute osseous abnormality. XR/XR chest 1V portable [id number] IMPRESSION: 1. Enteric tube in place with tip in the region of the gastric body and side hole distal to the GE junction.
[2024-05-29] MEDS: ondansetron 2 mg/ML SDV 2 mL 4 MG IVP (15:08)
[2024-05-29] MEDS: morphine 4 mg/mL SDV 1 mL IVP (15:09)
[2024-05-29] MEDS: cefTRIAXone 1,000 mg SDV 1000 MG IVP (16:42)
[2024-05-29] MEDS: dextrose 5%-lactated ringers 1,000 ML 125 ML IV (16:49)
[2024-05-29] MEDS: pantoprazole 40 mg SDV IVP (18:12)
[2024-05-29] MEDS: enoxaparin 40 mg/0.4 mL Syringe SUBCUT (18:12)
[2024-05-29] MEDS: dextrose 5%-lactated ringers 1,000 ML 75 ML IV (18:13)
[2024-05-29] MEDS: morphine 4 mg/mL SDV 1 mL 2 MG IVP (18:13)
[2024-05-29 18:31] LABS: Vitamin B12 685 pg/mL (232-1245)
[2024-05-29] MEDS: metoclopramide 5 mg/mL SDV 2 mL IVP (21:24)
[2024-05-29] MEDS: ketorolac 30 mg/mL INJ 15 MG IVP (21:24)
[2024-05-29] MEDS: diphenhydrAMINE 50 mg/mL SDV 1mL 25 MG IVP (21:25)
[2024-05-29] MEDS: acetaminophen 325 mg Tablet 650 MG PO (21:25)
--- NOTE | 2024-05-29 22:14 | PC.NURSE ---
Pt stated she has a migraine. She sees Dr. Powell outpatient for chronic migraines. Pt states whenever she gets a severe migraine, she goes to the ER and gets a migraine cocktail and requested one now. Dr. Mitchell notified and he ordered the migraine cocktail, which consisted of Tyelenol 650mg PO, Toradol 15mg IVP, Reglan 5mg IVP, and Benadryl 25mg IVP. This nurse administered the cocktail to the pt. Upon reassessment, pt states her migraine is gone. Pt is resting comfortably in bed at this time. Plan of care continued.
[2024-05-30] VITALS (9 sets, daily range): BP systolic 125–192; BP diastolic 75–102; PULSE 67–93; RESP 16–20; TEMP 36.6–36.8; O2SAT 95–99
[2024-05-30] MEDS: hyDRALAzine 20 mg/mL INJ 1 mL 5 MG IVP ×3 (00:21→11:13)
[2024-05-30 05:29] LABS: Basophils % 0.5 %; Eosinophils # 0.1 10^3/uL (0.0-0.8); Hematocrit 38.2 % (36-47); Lymphocytes # 1.6 10^3/uL (0.8-4.8); Lymphocytes % 39.6 %; Mean Corpuscular HGB Conc 32.5 g/dL (30-55); Mean Corpuscular Hemoglobin 28.1 pg (27-33); Mean Corpuscular Volume 86.4 fl (85-98); Monocytes # 0.3 10^3/uL (0.2-0.9); Monocytes % 7.4 %; Neutrophils # 1.99 10^3/uL (1.8-7.7); Neutrophils % 49.3 %; Nucleated Red Blood Cells % 0 %; Platelet Count 136 10^3/cmm (157-399); Red Blood Count 4.42 10^6/uL (3.85-5.65); Red Cell Distribution Width 13.7 % (12.1-15.1); White Blood Count 4.04 10^3/uL (3.29-11.43)
[2024-05-30 05:59] LABS: Alanine Aminotransferase 17 U/L (0-33); Albumin Level 3.6 g/dL (3.5-5.2); Alkaline Phosphatase 94 U/L (35-105); Aspartate Amino Transferase 17 U/L (0-32); Blood Urea Nitrogen 8 mg/dL (6-20); Calcium 8.6 mg/dL (8.5-10.5); Carbon Dioxide 23 mmol/L (22-29); Chloride 109 mmol/L (98-107); Creatinine Clr Calc Pharmacy 60.2811; Globulin 2.5 g/dL (1.3-4.6); Glomerular Filtration Rate 57.1 mL/min (90-130); Glucose 97 mg/dL (65-115); Magnesium 2.1 mg/dL (1.7-2.3); Osmolality Calculated 292 mOsm/kg (285-295); Phosphorus 4.2 mg/dL (2.5-4.5); Sodium 142 mmol/L (136-145); Total Bilirubin 0.3 mg/dL (0.15-1.2); Total Protein 6.1 g/dL (6.6-8.7)
[2024-05-30 06:01] LABS: Anion Gap 14.2 (5-19); Potassium 4.2 mmol/L (3.5-5.1)
[2024-05-30] MEDS: dextrose 5%-lactated ringers 1,000 ML 75 ML IV ×2 (06:09→18:44)
[2024-05-30] MEDS: cefTRIAXone 1,000 MG in sodium chloride 0.9% (plus) 50 ML 100 MG IV (08:18)
[2024-05-30] MEDS: pantoprazole 40 mg SDV IVP ×2 (08:19→17:54)
--- NOTE | 2024-05-30 09:19 | PC.CHAP ---
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 [] Patient/Family/Request visit [] Outpatient visit [] Follow-up visit [] Physician referral [] Code/Alert [] Routine visit [] Staff referral [] Actively dying [x] Patient sleeping [] Family support [] [] Out of room [] Palliative care [] [] Receiving care in room [] Pre-surgical visit [] Trauma [] Long length of stay [] ICU visit [] Other: Relational/Emotional Strength [] Patient feels connected with others/family/visitors/staff [] Distress [] Loneliness/isolation [] Abandonment Spirituality of Patient [] Person of Bernarda [] Attends Islam of their Bernarda [] Believes in Prayer [] Reads Bible or Scientology materials [] There are Spiritual issues to be addressed Performance Consultant Interventions [] Prayer [] Active listening [] Non-anxious presence [] Spiritual/emotional support [] Crisis/trauma care [] Spiritual counseling [] Bereavement support [] Provided bereavement packet [] Provided Bible/devotional materials [] Provided toy/stuffed animal, coloring book to patient or family member [] Provided Communion [] Anointing/[place] [] Salvation [] Completed spiritual assessment [] Other: Impact on Illness or Injury [] Angry [] Fearful [] Anxious [] Often cries [] Exhaustion [] Unable to work [] Unable to attend uatsdin [] Unable to walk/stand [] Unable to read [] Unable to drive [] Unable to eat/drink [] Unable to sleep [] Unable to be with family [] Patient intubated [] Other: Summary Time spent with patient
--- NOTE | 2024-05-30 09:20 | P.PN_ITS ---
Subjective 2 Subjective: Patient complaining of migraine Received migraine cocktail overnight as well Hypertensive she is on hydralazine as needed IV as needed use Vitals/I&O/Wt Last Vital Signs Temp 98.1 F 05/30/24 07:37 Pulse 87 05/30/24 07:37 Resp 16 05/30/24 07:37 BP 160/80 05/30/24 08:16 Pulse Ox 96 05/30/24 07:37 O2 Del Method Room Air 05/30/24 07:37 05/29/24 05/30/24 05/30/24 22:59 06:59 14:59 Intake Total 1120.833 / 1120.833 895 / 2015.833 Output Total 350 / 350 150 / 500 Balance 770.833 / 770.833 745 / 1515.833 Weight last 48 hrs Weight 82.1 kg Weight 82.1 kg Weight 82.1 kg Physical Exam 2 Narrative: Bowel sound present, no active passage of gas, no active bowel movement 150 mL of bile in the container NG to low intermittent suction Abdomen soft distended nontender and bloated Pleasant cooperative S1, S2 Afebrile Hypertensive Complaining of migraine No sign of stroke Appears anxious Data 05/30/24 04:48 05/30/24 04:48 A&P Assessment and plan (1) Borderline personality disorder: (2) Hypertension: Qualifiers: Hypertension type: primary hypertension Qualified Code(s): I10 - Essential (primary) hypertension (3) Irritable bowel disease: Qualifiers: Irritable bowel syndrome type: with constipation Qualified Code(s): K 58.1 - Irritable bowel syndrome with constipation (4) Partial small bowel obstruction: (5) Dehydration: (6) Chronic migraine without aura, intractable, with status migrainosus: Plan Partial bowel obstruction Positive bowel sound Abdominal exam is benign no sign of peritonitis Will request KUB today Continue IV fluids Patient is n.p.o. Migraine with hypertension Would use hydralazine on as needed basis, patient has received migraine cocktail History of syncope no active symptoms Patient appears very anxious DVT prophylaxis Lovenox Continue ceftriaxone for UTI Protonix 40 mg IV twice daily Diet: If she is not able to start eating by 06/01 may use PPN Further plans will be made after general surgery recommendations and KUB report Attestations 2 Medical Necessity Statement*: Continue medical management Diagnoses Borderline personality disorder F60.3 Primary hypertension I10 Hypertension type: primary hypertension Irritable bowel syndrome with constipation K58.1 Irritable bowel syndrome type: with constipation Partial small bowel obstruction K56.600 Dehydration E86.0 Chronic migraine without aura, intractable, with status migrainosus G43.711
--- NOTE | 2024-05-30 09:24 | XRR_ITS ---
PROCEDURE INFORMATION: Exam: XR Abdomen Exam date and time: 05/30/2024 11:00 AM Age: 58 years old Clinical indication: Condition or disease; Intestinal condition; Obstruction; Additional info: Bowel obstruction TECHNIQUE: Imaging protocol: Radiologic exam of the abdomen. Views: Frontal supine view of the abdomen. 1 View. COMPARISON: CT abdomen pelvis w con* [id number] 05/29/2024 1:17 PM FINDINGS: Tubes, catheters and devices: NG tube tip is visible in the central upper abdomen. The side port lies beyond the expected position of the diaphragmatic hiatus which is incompletely visualized. Diaphragm: The diaphragm is not included on the image. Gastrointestinal tract: There is gas in the nondistended colon. There is a paucity of small bowel gas. Intraperitoneal space: No gross free air. Organs: Cholecystectomy clips are seen in the right upper quadrant. Bones/joints: Bones are unremarkable. XR/XR KUB portable [id number] IMPRESSION: 1. No sign of bowel obstruction. 2. Appropriately positioned NG tube.
[2024-05-30] MEDS: ondansetron 2 mg/ML SDV 2 mL 4 MG IVP (09:40)
[2024-05-30] MEDS: dihydroergotamine 1 mg/mL Inj 0.5 MG IVP (10:49)
[2024-05-30] MEDS: metoclopramide 5 mg/mL SDV 2 mL IVP (12:40)
--- NOTE | 2024-05-30 16:19 | PM.CONSULT ---
Providers/Reason For Consult Consulting Physician/Specialty*: Dr. Alex Segura, DO/General Surgery Reason for Consult*: Small bowel obstruction Attending Physician: Harjit Cardenas MD Primary Care Provider: Roseanne Marin History of Present Illness History of Present Illness Anne Payne is a 58 year old female who presented to the hospital with nausea vomiting and abdominal pain. Imaging of the abdomen shows a small bowel obstruction. She reports that since getting the NG tube placed she has started passing flatus and feels much better. She denies any abdominal pain, hematochezia and/or melena Review of Systems General: Reports: 10 or more systems reviewed and unremarkable except in HPI and below Medications/Allergies Home Medications Medication Instructions Recorded Confirmed Last Taken Type acyclovir 800 mg tablet 800 mg PO TID PRN BREAKOUTS 09/02/22 05/29/24 Unknown History pregabalin 100 mg capsule 100 mg PO Q12H 09/02/22 05/29/24 05/29/24 History pantoprazole 40 mg tablet,delayed 40 mg PO QAM 06/14/23 05/29/24 05/29/24 History release ondansetron 4 mg disintegrating 4 mg PO Q6H PRN nausea and 10/04/23 05/29/24 Unknown Rx tablet vomiting #14 tabs promethazine 25 mg tablet 25 mg PO Q6H PRN nausea and 01/16/24 05/29/24 Unknown Rx vomiting #20 tabs carvedilol 25 mg tablet 25 mg PO BID #180 tabs 01/30/24 05/29/24 05/29/24 Rx trazodone 100 mg tablet 200 mg (2 x 100 mg) PO BEDTIME PRN 02/29/24 05/29/24 Unknown Rx Sleep #60 tabs quetiapine 25 mg tablet (Seroquel) 25 mg PO BID PRN anxiety/psychosis 04/05/24 05/29/24 Unknown Rx #60 tabs quetiapine 50 mg tablet (Seroquel) 50 mg PO BEDTIME #30 tabs 04/05/24 05/29/24 05/28/24 Rx sertraline 50 mg tablet (Zoloft) 50 mg PO QAM #30 tabs 04/05/24 05/29/24 05/29/24 Rx erenumab-aooe 140 mg/mL See Rx Instructions .Route 05/28/24 05/29/24 04/28/24 Rx subcutaneous auto-injector .COMPLEX #1 mL (Aimovig Autoinjector) furosemide 20 mg tablet 20 mg PO DAILY PRN Edema 05/29/24 05/29/24 Unknown History phentermine 37.5 mg tablet 37.5 mg PO DAILY 05/29/24 05/29/24 05/29/24 History potassium chloride 10 mEq 10 meq PO DAILY PRN Edema 05/29/24 05/29/24 Unknown History tablet,extended release semaglutide 1 mg/dose (4 mg/3 mL) 1 mg SUBCUT Q7D 05/29/24 05/29/24 05/23/24 History subcutaneous pen injector (Ozempic) Allergies Allergy/AdvReac Type Severity Reaction Status Date / Time risperidone [From Risperdal] Allergy Severe ADR-Faintin Verified 04/05/24 13:07 g dexchlorpheniramine Allergy ADR-Faintin Verified 04/05/24 13:07 [From Rymed g (dexchlorpheniramine-PE)] phenylephrine Allergy ADR-Faintin Verified 04/05/24 13:07 [From Rymed g (dexchlorpheniramine-PE)] Sulfa (Sulfonamide Allergy ALGY-Hives Verified 04/05/24 13:07 Antibiotics) amlodipine AdvReac Mild Unknown Verified 04/05/24 13:07 Current Medications Generic Name Dose Route Start Last Admin Trade Name Freq PRN Reason Stop Dose Admin Enoxaparin Sodium 40 mg 05/29/24 18:00 05/30/24 17:53 Enoxaparin 40 Mg/0.4 Ml Syringe SUBCUT 40 mg Q24H CALIN Administration Hydralazine HCl 5 mg 05/30/24 08:51 05/30/24 11:13 Hydralazine 20 Mg/Ml Inj 1 Ml IVP 5 mg Q6H PRN Administration bp>180/90 Ceftriaxone Sodium 1,000 mg/ 50 mls @ 100 mls/hr 05/30/24 09:00 05/30/24 09:42 Sodium Chloride IV Infused DAILY CALIN Infusion Protocol Dextrose/Lactated Ringer's 1,000 mls @ 150 mls/hr 05/29/24 17:01 05/31/24 05:15 Dextrose 5%-Lactated Ringers IV 150 mls/hr .Q6H40M CALIN Infusion Morphine Sulfate 2 mg 05/29/24 17:01 05/29/24 18:13 Morphine 4 Mg/Ml Sdv 1 Ml IVP 2 mg Q4H PRN Administration abd pain Ondansetron HCl 4 mg 05/29/24 17:01 05/30/24 09:40 Ondansetron 2 Mg/Ml Sdv 2 Ml IVP 4 mg Q6H PRN Administration NAUSEA AND VOMITING Pantoprazole Sodium 40 mg 05/29/24 18:00 05/30/24 17:54 Pantoprazole 40 Mg Sdv IVP 40 mg BID CALIN Administration PFSH Acute PFSH: Medical History (Updated 06/18/24 @ 06:26 by Alex Segura DO) Small bowel obstruction Acute cystitis without hematuria Partial small bowel obstruction Dehydration Hypertension Obesity (BMI 30-39.9) History of Holter monitoring 04/2023 Baseline rhythm is sinus rhythm. HR ranged from 56-135, avg 80 bpm, nnspecified patient symptom correlated with isolated PVC History of electroencephalogram 05/2023 IMPRESSION: This was a normal routine EEG, awake and drowsy and asleep, with no behavioral or electrographic epileptiform activity. A normal EEG does not exclude a diagnosis of epilepsy. DCIS (ductal carcinoma in situ) ER/[place] negative, tamoxifen History of cardiac arrest Benign essential HTN Breast cancer Chronic migraine without aura, intractable, with status migrainosus Recurrent syncope History of colon polyps Psychiatric care Inappropriate sinus tachycardia Malignant hypertension History of malignant melanoma Fear of insects (Unknown) Specifically tics Major depressive disorder, recurrent, severe with psychotic symptoms [facility] managing Lumbar radiculitis Herpes genitalia Hot flashes Irritable bowel disease Depression with anxiety HTN (hypertension) with goal to be determined Borderline personality disorder Functional neurological symptom disorder with attacks or seizures Dr. Chepe Pickering-- Neurology [facility] Surgical History History of appendectomy (01/2021) History of exploratory laparotomy (01/2021) with lysis of adhesions, performed due to SBO Hx of bilateral mastectomy History of colonoscopy Intra-abdominal adhesions (~10/2020) adhesiolysis / incidental appendectomy-- at same time as bowel obstruction H/O tubal ligation (~2008) Hx of abdominoplasty (~2009) History of augmentation of both breasts 2013 silicone implants, removed at time of mastectomies Hx of section (~2008) x 1 Hx of hernia repair (~2012) ventral (patient thinks mesh was used) Hx of hysterectomy (~2008) CHRISTINA-- ovaries spared. Hx of decompressive lumbar laminectomy ---2014 L5-S1 [facility] IN [place], [place]. ---10/20/2020 Revision; Dr Dalia ALBERT Family History Mother Breast cancer dx age unknown Hypertension Grandmother Breast cancer Maternal--dx age 60's Hypertension Maternal and Paternal Sister No problems noted. Daughter Uterine cancer dx age 28 Father Diabetes Hypertension Stroke Grandfather Hypertension maternal and Paternal Denies family history of Colon cancer Ovarian cancer Social History Smoking and tobacco/nicotine status: never used tobacco/nicotine Alcohol intake: current Alcohol intake frequency: holidays/special occasions only Alcohol type: wine Substance/Drug Use: never Do you think of yourself as: Straight/Heterosexual Vitals/I&O/Wt Last Vital Signs Temp 98.3 F 05/31/24 07:30 Pulse 101 H 05/31/24 07:30 Resp 17 05/31/24 07:30 BP 147/84 05/31/24 07:30 Pulse Ox 98 05/31/24 07:30 O2 Del Method Room Air 05/31/24 07:30 05/30/24 05/31/24 05/31/24 22:59 06:59 14:59 Intake Total 943.75 / 993.75 1090.0 / 2083.75 Output Total 1400 / 1400 Balance 943.75 / 993.75 -310.0 / 683.75 Weight last 48 hrs Weight 176 lb 9.6 oz Weight 181 lb Weight 181 lb Weight 181 lb Physical Exam Narrative: General : Patient is well developed , no acute distress, oriented x3 Head : Normal cephalic, a-traumatic. Ears : Pinnae and external canal are normal. Hearing is normal. Eyes : PERRLA, Sclera and injection are normal. No conjunctival discharge. Nose : Mucous membranes are without erythema. Throat : buccal mucosa is normal, gums are without significant recession or hypertrophy. Lungs : Equal chest rise bilaterally, no use of accessory muscles, trachea is midline. Cor : Rate and rhythm are normal. Abdomen : Soft, ND, NT, no g/r/m Extremities : No edema, no cyanosis or clubbing, dorsalis pedis pulses are present bilaterally, non-tender to palpation of calves. Upper extremities are normal bilaterally. Back : non-tender to palpation, no CVA tenderness. Neuro : CN II - XII intact, Upper and lower extremities have equal and full strength Data 05/31/24 04:32 05/31/24 04:32 A&P Assessment and plan (1) Small bowel obstruction: Plan Resolving DC NG tube and give clear liquids IV fluids Medical management per hospitalist Coding Level of Care Code 57383 Diagnoses Small bowel obstruction K56.609
[2024-05-30] MEDS: enoxaparin 40 mg/0.4 mL Syringe SUBCUT (17:53)
[2024-05-31] VITALS: BP 163/76; PULSE 100; RESP 17; TEMP 37; O2SAT 96
[2024-05-31] MEDS: dextrose 5%-lactated ringers 1,000 ML 150 ML IV (02:06)
[2024-05-31 03:58] VITALS: BP 152/79; PULSE 87; RESP 16; TEMP 36.8; O2SAT 96
[2024-05-31] MEDS: acetaminophen 1,000 MG/100 ML PIGGYBACK 400 MG IV (04:49)
[2024-05-31 05:13] LABS: Basophils % 0.4 %; Eosinophils # 0.1 10^3/uL (0.0-0.8); Eosinophils % 1.4 %; Hematocrit 39.7 % (36-47); Lymphocytes # 1.3 10^3/uL (0.8-4.8); Lymphocytes % 23.7 %; Mean Corpuscular HGB Conc 32.2 g/dL (30-55); Mean Corpuscular Hemoglobin 27.9 pg (27-33); Mean Corpuscular Volume 86.5 fl (85-98); Monocytes # 0.3 10^3/uL (0.2-0.9); Monocytes % 5.8 %; Neutrophils # 3.79 10^3/uL (1.8-7.7); Neutrophils % 68.5 %; Nucleated Red Blood Cells % 0 %; Platelet Count 166 10^3/cmm (157-399); Red Blood Count 4.59 10^6/uL (3.85-5.65); Red Cell Distribution Width 13.6 % (12.1-15.1); White Blood Count 5.53 10^3/uL (3.29-11.43)
[2024-05-31 05:40] LABS: Blood Urea Nitrogen 4 mg/dL (6-20); Calcium 8.3 mg/dL (8.5-10.5); Carbon Dioxide 19 mmol/L (22-29); Chloride 107 mmol/L (98-107); Creatinine Clr Calc Pharmacy 74.3734; Glomerular Filtration Rate 73.9 mL/min (90-130); Glucose 118 mg/dL (65-115); Osmolality Calculated 284 mOsm/kg (285-295); Sodium 138 mmol/L (136-145)
[2024-05-31 05:42] LABS: Anion Gap 16.3 (5-19); Potassium 4.3 mmol/L (3.5-5.1)
[2024-05-31 07:30] VITALS: BP 147/84; PULSE 101; RESP 17; TEMP 36.8; O2SAT 98
--- NOTE | 2024-05-31 08:15 | XR_ITS ---
WS: [id number] ABDOMEN 1 VIEW(S) HISTORY: sbo COMPARISON: 05/29/2024 CT and KUB 05/30/2024 The diaphragm is not included nor the upper abdomen on this portable exam. Prior cholecystectomy. Mildly dilated small bowel loop in the RIGHT lower quadrant. There is increasi ng air throughout the colon. There is still a paucity of air in the LEFT mid abdomen. Nasogastric tub e is no longer present in the stomach. Urinary bladder is distended. Osseous structures are negative. XR/XR KUB portable [id number] IMPRESSION: 1. Mild dilatation of small bowel loops in the RIGHT lower quadrant. 2. Increasing air within the colon suggesting improving small bowel obstructio n.
[2024-05-31 08:23] VITALS: PULSE 96; RESP 16; O2SAT 98
[2024-05-31] MEDS: pantoprazole 40 mg SDV IVP (08:45)
[2024-05-31] MEDS: cefTRIAXone 1,000 MG in sodium chloride 0.9% (plus) 50 ML 100 MG IV (08:46)
--- NOTE | 2024-05-31 08:58 | P.PN_ITS ---
Subjective 2 Subjective: NG tube removed, start clear liquid diet If patient tolerates diet and no vomiting she may be able to go home by tomorrow Repeat KUB Patient is endorsing passing gas Discontinue IV fluids Hemodynamically stable Currently on room air 500 cc of bilious content in the contain er Vitals/I&O/Wt Last Vital Signs Temp 98.3 F 05/31/24 07:30 Pulse 96 05/31/24 08:23 Resp 16 05/31/24 08:23 BP 147/84 05/31/24 07:30 Pulse Ox 98 05/31/24 08:23 O2 Del Method Room Air 05/31/24 08:23 05/30/24 05/31/24 05/31/24 22:59 06:59 14:59 Intake Total 943.75 / 993.75 1090.0 / 2083.75 Output Total 1400 / 1400 Balance 943.75 / 993.75 -310.0 / 683.75 Weight last 48 hrs Weight 80.104 kg Weight 82.1 kg Weight 82.1 kg Weight 82.1 kg Physical Exam 2 Narrative: Abdomen soft Bowel sound present GCS 15 Awake and alert Signs of dehydration improved Nonfocal neuroexam No audible stridor or wheezing S1, S2 Pleasant and cooperative Data 05/31/24 04:32 05/31/24 04:32 A&P Assessment and plan (1) Borderline personality disorder: (2) Chronic migraine without aura, intractable, with status migrainosus: (3) Irritable bowel disease: Qualifiers: Irritable bowel syndrome type: with constipation Qualified Code(s): K 58.1 - Irritable bowel syndrome with constipation (4) Partial small bowel obstruction: (5) Hypertension: Qualifiers: Hypertension type: primary hypertension Qualified Code(s): I10 - Essential (primary) hypertension Plan Start liquid diet today NG tube removed 500 cc of bilious content in the container Bowel sound present Passing flatus Start clear liquid diet Discharge tomorrow Discontinue IV fluids Discontinue antibiotics Attestations 2 Medical Necessity Statement*: Discharge tomorrow Diagnoses Borderline personality disorder F60.3 Chronic migraine without aura, intractable, with status migrainosus G43.711 Irritable bowel syndrome with constipation K58.1 Irritable bowel syndrome type: with constipation Partial small bowel obstruction K56.600 Primary hypertension I10 Hypertension type: primary hypertension
[2024-05-31] MEDS: pregabalin 100 mg Capsule PO (09:21)
[2024-05-31] MEDS: carvedilol 25 mg Tablet PO (09:21)
[2024-05-31 11:13] VITALS: BP 119/74; PULSE 108; RESP 18; TEMP 36.7; O2SAT 97
--- NOTE | 2024-05-31 11:43 | PM.DCS ---
Discharge Providers Date of Admission: 05/29/24 15:05 Date of Discharge: May 31, 2024 Attending Provider at Admission: Harjit Cardenas MD Attending Provider at Discharge: Harjit Cardenas MD Primary Care Provider: Roseanne Marin Diagnoses at Discharge Discharge Diagnosis (1) Borderline personality disorder: Status: Chronic (2) Chronic migraine without aura, intractable, with status migrainosus: Status: Chronic (3) Irritable bowel disease: Status: Chronic Qualifiers: Irritable bowel syndrome type: with constipation Qualified Code(s): K58.1 - Irritable bowel syndrome with constipation (4) Partial small bowel obstruction: Status: Acute (5) Hypertension: Status: Chronic Qualifiers: Hypertension type: primary hypertension Qualified Code(s): I10 - Essential (primary) hypertension Reason for Visit Reason for Visit: Vomiting, diarrhea for two weeks Hospital Course Hospital Course 58-year female who was admitted for management evaluation of partial SBO. NG tube was placed she was managed conservatively, general surgery was consulted, patient was passing flatus, NG tube was removed, she was put on clear liquid diet which she tolerated, patient had a large bowel movement afterwards. Decision was made to discharge her home. She takes several medications for migraine which were held during hospitalization. She was given migraine cocktail. Repeat KUB showed improvement of SBO. Physical Exam Narrative: Awake and alert DC 50 Nonfocal neuroexam S1, S2 abdomen soft bowel sounds present Discharge Data Studies Completed and Pending Completed Studies During Hospitalization Category Date Time Status CT abdomen pelvis w con* [id number] Urgent Cat Scan 05/29/24 12:30 Completed XR KUB portable [id number] Routine Exams 05/30/24 09:24 Completed XR KUB portable [id number] Routine Exams 05/31/24 08:15 Completed XR chest 1V portable [id number] Stat Exams 05/29/24 14:50 Completed Pending at discharge Category Date Time Status C.Diff PCR (Lab) Routine Lab 05/29/24 12:30 Ordered Immunochemical Fecal OCB Routine Lab 05/29/24 12:30 Ordered Lactoferrin Routine Lab 05/29/24 12:30 Ordered OVA and Parasites, Conc and PE Routine Lab 05/29/24 12:30 Ordered Salmonella / Shigella / Campy Routine Lab 05/29/24 12:30 Ordered Urine Culture Stat Lab 05/29/24 12:42 Results Radiology Impressions Abdomen/Pelvis CT 05/29/24 12:30 IMPRESSION: 1. Significant distention of the stomach, duodenum and portions of the jejunum with fluid consistent with partial small bowel obstruction. There is mild hyperemia also of the jejunum. The transition point is not identified. Distal small bowel contain submucosal fat and the lumen is narrowed. Submucosal fat is seen with a more chronic process. There may be adhesions or stricture present causing the obstruction. No ascites or abscess. 2. No free air. 3. Prior cholecystectomy and hysterectomy. 4. Bilateral breast implants. 5. Prior appendectomy. Chest X-Ray 05/29/24 14:50 IMPRESSION: 1. Enteric tube in place with tip in the region of the gastric body and side hole distal to the GE junction. KUB X-Ray 05/31/24 08:15 IMPRESSION: 1. Mild dilatation of small bowel loops in the RIGHT lower quadrant. 2. Increasing air within the colon suggesting improving small bowel obstruction. Laboratory Results WBC 5.53 10^3/uL (3.29-11.43) 05/31/24 04:32 RBC 4.59 10^6/uL (3.85-5.65) 05/31/24 04:32 Hgb 12.80 g/dL (11.27-16.99) 05/31/24 04:32 Hct 39.7 % (36-47) 05/31/24 04:32 MCV 86.5 fl (85-98) 05/31/24 04:32 MCH 27.9 pg (27-33) 05/31/24 04:32 MCHC 32.2 g/dL (30-55) 05/31/24 04:32 RDW 13.6 % (12.1-15.1) 05/31/24 04:32 Plt Count 166 10^3/cmm (157-399) 05/31/24 04:32 MPV 12.0 fL (7.4-10.4) H 05/31/24 04:32 Neut % (Auto) 68.5 % 05/31/24 04:32 Lymph % (Auto) 23.7 % 05/31/24 04:32 [place] % (Auto) 5.8 % 05/31/24 04:32 Eos % (Auto) 1.4 % 05/31/24 04:32 Baso % (Auto) 0.4 % 05/31/24 04:32 Neut # (Auto) 3.79 10^3/uL (1.8-7.7) 05/31/24 04:32 Lymph # (Auto) 1.3 10^3/uL (0.8-4.8) 05/31/24 04:32 [place] # (Auto) 0.3 10^3/uL (0.2-0.9) 05/31/24 04:32 Eos # (Auto) 0.1 10^3/uL (0.0-0.8) 05/31/24 04:32 Baso # (Auto) 0.0 10^3/uL (0.0-0.1) 05/31/24 04:32 Nucleated RBC % (auto) 0 % 05/31/24 04:32 Nucleated RBCs # 0.0 /100WBC 05/31/24 04:32 Sodium 138 mmol/L (136-145) 05/31/24 04:32 Potassium 4.3 mmol/L (3.5-5.1) 05/31/24 04:32 Chloride 107 mmol/L (98-107) 05/31/24 04:32 Carbon Dioxide 19 mmol/L (22-29) L 05/31/24 04:32 Anion Gap 16.3 (5-19) 05/31/24 04:32 BUN 4 mg/dL (6-20) L 05/31/24 04:32 Creatinine 0.8 mg/dL (0.5-0.9) 05/31/24 04:32 GFR Calculation 73.9 mL/min (90-130) L 05/31/24 04:32 Glucose 118 mg/dL (65-115) H 05/31/24 04:32 Calculated Osmolality 284 mOsm/kg (285-295) L 05/31/24 04:32 Calcium 8.3 mg/dL (8.5-10.5) L 05/31/24 04:32 Phosphorus 4.2 mg/dL (2.5-4.5) 05/30/24 04:48 Magnesium 2.1 mg/dL (1.7-2.3) 05/30/24 04:48 Total Bilirubin 0.3 mg/dL (0.15-1.2) 05/30/24 04:48 AST 17 U/L (0-32) 05/30/24 04:48 ALT 17 U/L (0-33) 05/30/24 04:48 Alkaline Phosphatase 94 U/L (35-105) 05/30/24 04:48 Total Protein 6.1 g/dL (6.6-8.7) L 05/30/24 04:48 Albumin 3.6 g/dL (3.5-5.2) 05/30/24 04:48 Globulin 2.5 g/dL (1.3-4.6) 05/30/24 04:48 Lipase 24 U/L (13-60) 05/29/24 12:51 Vitamin B12 685 pg/mL (232-1245) 05/29/24 12:51 Urine Color Yellow (Yellow) 05/29/24 12:42 Urine Appearance Cloudy (CLEAR) A 05/29/24 12:42 Urine pH 6 (5-7) 05/29/24 12:42 Ur Specific [place] 1.025 (1.005-1.030) 05/29/24 12:42 Urine Protein Trace (Negative) 05/29/24 12:42 Urine Glucose (UA) Norm (Normal) 05/29/24 12:42 Urine Ketones Negative (Negative) 05/29/24 12:42 Urine Blood 2+ (Negative) H 05/29/24 12:42 Urine Nitrate Negative (Negative) 05/29/24 12:42 Urine Bilirubin Neg (Negative) 05/29/24 12:42 Urine Urobilinogen Norm mg/dL (Negative) 05/29/24 12:42 Ur Leukocyte Esterase 1+ (Negative) H 05/29/24 12:42 Urine RBC 5-10 /hpf (0-2) H 05/29/24 12:42 Urine WBC >100 /hpf (0-5) H 05/29/24 12:42 Ur Squamous Epith Cells 5-10 /hpf (0-5) H 05/29/24 12:42 Amorphous Sediment Not Reportable 05/29/24 12:42 Urine Bacteria 2+ /hpf (NONE) H 05/29/24 12:42 Urine Mucus 1+ /hpf 05/29/24 12:42 Vitals Last Vital Signs Temp 98.1 F 05/31/24 11:13 Pulse 108 H 05/31/24 11:13 Resp 18 05/31/24 11:13 BP 119/74 05/31/24 11:13 Pulse Ox 97 05/31/24 11:13 O2 Del Method Room Air 05/31/24 11:13 Discharge Plan Discharge Patient Disposition: Home Condition: Stable Prescriptions: Continued trazodone 100 mg tablet 200 mg PO BEDTIME PRN (Reason: Sleep) Qty: 60 6RF quetiapine [Seroquel] 50 mg tablet 50 mg PO BEDTIME Qty: 30 6RF quetiapine [Seroquel] 25 mg tablet 25 mg PO BID PRN (Reason: anxiety/psychosis) Qty: 60 3RF sertraline [Zoloft] 50 mg tablet 50 mg PO QAM Qty: 30 4RF carvedilol 25 mg tablet 25 mg PO BID Qty: 180 3RF Aimovig Autoinjector 140 mg/mL auto-injector See Rx Instructions .ROUTE .COMPLEX Qty: 1 0RF Dose Instruction: INJECT 1 PEN SUB-Q ONCE MONTHLY FOR MIGRAINES Rx Instructions: INJECT 1 PEN SUB-Q ONCE MONTHLY FOR MIGRAINES pantoprazole 40 mg tablet,delayed release (DR/EC) 40 mg PO QAM promethazine 25 mg tablet 25 mg PO Q6H PRN (Reason: nausea and vomiting) Qty: 20 0RF potassium chloride 10 mEq tablet extended release 10 meq PO DAILY PRN (Reason: Edema) phentermine 37.5 mg tablet 37.5 mg PO DAILY furosemide 20 mg tablet 20 mg PO DAILY PRN (Reason: Edema) Ozempic 1 mg/dose (4 mg/3 mL) pen injector 1 mg SUBCUT Q7D acyclovir 800 mg tablet 800 mg PO TID PRN (Reason: BREAKOUTS) pregabalin 100 mg capsule 100 mg PO Q12H MDD 2 caps ondansetron 4 mg tablet,disintegrating 4 mg PO Q6H PRN (Reason: nausea and vomiting) Qty: 14 0RF Discharge Orders: Discharge Order (Routine); Ordered 05/31/24 Ordered By: Harjit Cardenas Referrals: Roseanne Marin PA [Primary Care Provider] - 06/06/24 2:00 pm Patient Instructions: Bowel Obstruction (DC), Opioid Safety Discharge Attestations Time Spent in Discharge Care*: greater than 30 min Status at Discharge: Cognitive status at discharge: cognitively intact, Quality Metrics Clinical Quality Measures [ No reported AMI, CVA or VTE this stay] Coding Level of Care Code Acute Code for Chg Fwd Diagnoses Borderline personality disorder F60.3 Chronic migraine without aura, intractable, with status migrainosus G43.711 Irritable bowel syndrome with constipation K58.1 Irritable bowel syndrome type: with constipation Partial small bowel obstruction K56.600 Primary hypertension I10 Hypertension type: primary hypertension
[2024-05-31 12:09] VITALS: BP 119/74; PULSE 108; RESP 18; TEMP 36.7; O2SAT 97
== END 2024-05-31 11:55 | disposition home or self-care (01) | DRG 389 ==
LOC: ER 14:56 → MEDSURG 15:05
PROVIDERS: Admitting Provider Internal Medicine; Emergency Provider Physician Assistant; PCP Physician Assistant; Visit Provider Internal Medicine
DX: K56.600 Partial intestinal obstruction, unspecified as to cause (principal); N30.00 Acute cystitis without hematuria; K58.9 Irritable bowel syndrome, unspecified; F60.9 Personality disorder, unspecified; G43.711 Chronic migraine without aura, intractable, with status migrainosus; I10 Essential (primary) hypertension; E11.9 Type 2 diabetes mellitus without complications; E66.9 Obesity, unspecified; E86.0 Dehydration; Z68.33 Body mass index [BMI] 33.0-33.9, adult; Z79.85 Long-term (current) use of injectable non-insulin antidiabetic drugs; Z85.3 Personal history of malignant neoplasm of breast
CPT/HCPCS: 36415; 71045; 74018; 74177; 80048; 80053; 81003; 81015; 82607; 83690; 83735; 84100; 85025; 87077; 87086; 87186; 96372; 96374; 96375; 99285; J0131; J0360; J0696; J1110; J1200; J1650; J1885; J2270; J2405; J2470; J2765; J7030; J7121; Q9967

== ENCOUNTER → 2024-06-21 10:03 | Outpatient (BNVA) | payer MEDICARE, MEDICAID, SELFPAY ==
[2023-10-05 11:47] VITALS: BP 131/76; BMI 30.5
== END ==
PROVIDERS: PCP Physician Assistant; Visit Provider Internal Medicine Cardiovascular Disease
DX: I47.11 Inappropriate sinus tachycardia, so stated (principal); R73.03 Prediabetes; R19.7 Diarrhea, unspecified; I10 Essential (primary) hypertension; F33.3 Major depressive disorder, recurrent, severe with psychotic symptoms
CPT/HCPCS: 99214

== ENCOUNTER → 2024-06-26 14:39 | Outpatient (BNVA) | payer MEDICARE, MEDICAID, SELFPAY ==
[2023-10-05 11:47] VITALS: BP 131/76; BMI 30.5
== END ==
PROVIDERS: PCP Physician Assistant; Visit Provider Nurse Practitioner Family
DX: L82.0 Inflamed seborrheic keratosis (principal); L91.8 Other hypertrophic disorders of the skin; L57.8 Other skin changes due to chronic exposure to nonionizing radiation; L81.4 Other melanin hyperpigmentation; D22.5 Melanocytic nevi of trunk; Z85.820 Personal history of malignant melanoma of skin
CPT/HCPCS: 17110; 99213

== ENCOUNTER → 2024-06-29 09:41 | Outpatient (BNVA) | payer MEDICARE, MEDICAID, SELFPAY ==
[2023-10-05 11:47] VITALS: BP 131/76; BMI 30.5
== END ==
PROVIDERS: PCP Physician Assistant; Visit Provider Nurse Practitioner Psychiatric/Mental Health
DX: Z79.899 Other long term (current) drug therapy (principal)
CPT/HCPCS: 80061; 83036

== ENCOUNTER → 2024-08-08 08:23 | Outpatient (BNVA) | payer MEDICARE, MEDICAID, SELFPAY ==
[2024-07-05 16:24] VITALS: BP 145/82; BMI 33.1
== END ==
PROVIDERS: PCP Physician Assistant; Visit Provider Specialist
DX: G40.909 Epilepsy, unspecified, not intractable, without status epilepticus (principal); G43.711 Chronic migraine without aura, intractable, with status migrainosus; R41.82 Altered mental status, unspecified; F60.3 Borderline personality disorder; R55 Syncope and collapse
CPT/HCPCS: 99213; 99214

== ENCOUNTER 2024-08-17 10:03 | Inpatient (IN) | payer MEDICARE, MEDICAID, SELFPAY ==
[2024-07-05 16:24] VITALS: BP 145/82; BMI 33.1
[2024-08-17] VITALS (18 sets, daily range): BP systolic 97–174; BP diastolic 60–89; PULSE 84–104; RESP 14–18; TEMP 36.1–37.3; O2SAT 90–100; BMI 34.2
--- NOTE | 2024-08-17 10:39 | CT_ITS ---
WS: [id number] CT ABDOMEN PELVIS TECHNIQUE: Contrast-enhanced CT of the abdomen and pelvis with coronal and sagittal reformatted image s. CLINICAL INFORMATION: abd pain COMPARISON: 05/29/2024 DLP: 728.[address] scans at [facility] use at least one of these dose optimization techniques: automated e xposure control; mA and/or kV adjustment per patient size (includes targeted exams where dose is matc hed to clinical indication); or iterative reconstruction. FINDINGS: Diffuse fluid distention of small bowel with wall thickening and submucosal enhancement inv olving the mid and distal small bowel. Associated submucosal fat deposition can be seen with inflamma tory bowel disease. Small bowel is dilated to the ileocecal valve. Area of transition in the mid abdo men suspicious for adhesions or internal hernia with partial developing small bowel obstruction Air-fluid level in the stomach. More normal-appearing small bowel in the LEFT upper quadrant proximal to the transition point. Small amount of free fluid in the pelvis. Mucosal enhancement involving the sigmoid colon suspicious for colitis. Diffuse fatty infiltration of the liver. Cholecystectomy clips. Normal portal vein and splenic vein. Normal spleen. Lung bases are well aerated. Normal pancreatic parenchymal enhancement. Adrenal glands are normal. Normal renal parenchymal enhancement. A few small LEFT renal cysts. No hydronephrosis. N ormal caliber abdominal aorta. Tiny fat-containing umbilical hernia. Prior cholecystectomy and hysterectomy. Prior appendectomy. CT/CT abdomen pelvis w con* [id number] IMPRESSION: 1. Fluid distended loops of mid and distal small bowel extending to the ileoce syd valve with marked diffuse hyperemia and wall thickening with associated sub mucosal fat deposition. This can be seen with inflammatory bowel disease. Recom mend correlation for superimposed acute infectious or inflammatory enteritis. 2. Suspected area of transition in the mid abdomen with a small amount of asso ciated fluid may be due to adhesions or internal hernia. Findings suspicious fo r developing partial small bowel obstruction. Area of transition noted on the b ookmarked images 3. Mucosal enhancement involving the sigmoid colon compatible with mild distal colitis. 4. Air-fluid level in the stomach. 5. Cholecystectomy clips. 6. Small amount of free fluid in the pelvis.
--- NOTE | 2024-08-17 10:48 | ED_ITS ---
HPI - Nausea/Vomiting/Diarrhea 2 General: Chief complaint: Nausea/Vomiting/Diarrhea Stated complaint: dirrhea, vommiting, abd pain Time Seen by Provider: 08/17/24 10:22 History of Present Illness: 59-year-old female who presents to the e mergency room with complaints of abdominal pain with vomiting and diarrhea that began overnight. She has had some bloating and cramping as well. She had a previous small bowel obstruction. She denies any medic easy melena hematemesis cough. Notes no dysuria urgency or frequency. Associated symtoms: Denies chest pain or dysuria Related Data Home Medications Medication Instructions Recorded Confirmed acyclovir 800 mg tablet 800 mg PO TID PRN BREAKOUTS 09/02/22 08/17/24 pregabalin 100 mg capsule 100 mg PO Q12H 09/02/22 08/17/24 pantoprazole 40 mg tablet,delayed 40 mg PO QAM 06/14/23 08/17/24 release furosemide 20 mg tablet 20 mg PO DAILY PRN Edema 05/29/24 08/17/24 potassium chloride 10 mEq 10 meq PO DAILY PRN Edema 05/29/24 08/17/24 tablet,extended release semaglutide 1 mg/dose (4 mg/3 mL) 25 mg SUBCUT Q7D 08/17/24 08/17/24 subcutaneous pen injector (Ozempic) Previous Rx's Medication Instructions Recorded ondansetron 4 mg disintegrating 4 mg PO Q6H PRN nausea and 10/04/23 tablet vomiting #14 tabs promethazine 25 mg tablet 25 mg PO Q6H PRN nausea and 01/16/24 vomiting #20 tabs quetiapine 25 mg tablet (Seroquel) 25 mg PO BID PRN anxiety/psychosis 04/05/24 #60 tabs quetiapine 50 mg tablet (Seroquel) 50 mg PO BEDTIME #30 tabs 04/05/24 carvedilol 25 mg tablet 25 mg PO BID #180 tabs 06/21/24 sertraline 50 mg tablet (Zoloft) 50 mg PO QAM #30 tabs 06/29/24 trazodone 100 mg tablet 200 mg (2 x 100 mg) PO BEDTIME 06/29/24 Sleep #30 tabs erenumab-aooe 140 mg/mL See Rx Instructions .Route 08/08/24 subcutaneous auto-injector .COMPLEX #1 mL (Aimovig Autoinjector) sumatriptan succinate 100 mg tablet See Rx Instructions .Route 08/08/24 .COMPLEX #12 tabs topiramate 100 mg tablet (Topamax) 100 mg PO DAILY #30 tabs 08/08/24 Allergies Allergy/AdvReac Type Severity Reaction Status Date / Time risperidone [From Risperdal] Allergy Severe ADR-Faintin Verified 08/08/24 08:33 g dexchlorpheniramine Allergy ADR-Faintin Verified 08/08/24 08:33 [From Rymed g (dexchlorpheniramine-PE)] morphine Allergy ADR-Migrain Verified 08/08/24 08:33 e phenylephrine Allergy ADR-Faintin Verified 08/08/24 08:33 [From Rymed g (dexchlorpheniramine-PE)] Sulfa (Sulfonamide Allergy ALGY-Hives Verified 08/08/24 08:33 Antibiotics) amlodipine AdvReac Mild Unknown Verified 08/08/24 08:33 Review of Systems 2 Const: Denies: fever(s) or chills Card: Denies: chest pain Resp: Denies: dyspnea GI: Denies: abdominal pain : Denies: dysuria, urinary frequency or urinary urgency Musc: Denies: neck pain or back pain Skin/Breast: Denies: rash PFSH ED 2 PFSH: Medical History Small bowel obstruction Acute cystitis without hematuria Partial small bowel obstruction Dehydration Hypertension Obesity (BMI 30-39.9) History of Holter monitoring 04/2023 Baseline rhythm is sinus rhythm. HR ranged from 56-135, avg 80 bpm, nnspecified patient symptom correlated with isolated PVC History of electroencephalogram 05/2023 IMPRESSION: This was a normal routine EEG, awake and drowsy and asleep, with no behavioral or electrographic epileptiform activity. A normal EEG does not exclude a diagnosis of epilepsy. DCIS (ductal carcinoma in situ) ER/ME negative, tamoxifen History of cardiac arrest Benign essential HTN Breast cancer Chronic migraine without aura, intractable, with status migrainosus Recurrent syncope History of colon polyps Psychiatric care Inappropriate sinus tachycardia Malignant hypertension History of malignant melanoma Fear of insects (Unknown) Specifically tics Major depressive disorder, recurrent, severe with psychotic symptoms [facility] managing Lumbar radiculitis Herpes genitalia Hot flashes Irritable bowel disease Depression with anxiety HTN (hypertension) with goal to be determined Borderline personality disorder Functional neurological symptom disorder with attacks or seizures Dr. Chepe Pickering-- Neurology [facility] Surgical History History of appendectomy (01/2021) History of exploratory laparotomy (01/2021) with lysis of adhesions, performed due to SBO Hx of bilateral mastectomy History of colonoscopy Intra-abdominal adhesions (~10/2020) adhesiolysis / incidental appendectomy-- at same time as bowel obstruction H/O tubal ligation (~2008) Hx of abdominoplasty (~2009) History of augmentation of both breasts 2012 silicone implants, removed at time of mastectomies Hx of section (~2008) x 1 Hx of hernia repair (~2012) ventral (patient thinks mesh was used) Hx of hysterectomy (~2008) CHRISTINA-- ovaries spared. Hx of decompressive lumbar laminectomy ---2014 L5-S1 [facility] IN [place], [place] ---10/20/2020 Revision; Dr Dalia ALBERT Family History Mother Breast cancer dx age unknown Hypertension Grandmother Breast cancer Maternal--dx age 60's Hypertension Maternal and Paternal Sister No problems noted. Daughter Uterine cancer dx age 28 Father Diabetes Hypertension Stroke Grandfather Hypertension maternal and Paternal Denies family history of Colon cancer Ovarian cancer Social History Smoking and tobacco/nicotine status: never used tobacco/nicotine Alcohol intake: current Alcohol intake frequency: holidays/special occasions only Alcohol type: wine Substance/Drug Use: never Do you think of yourself as: Straight/Heterosexual Physical Exam 2 Const: COMMON NORMALS: no acute distress GENERAL APPEARANCE: cooperative and comfortable ORIENTATION/CONSCIOUSNESS: Yes awake, Yes oriented to person, Yes oriented to place and Yes oriented to time HENMT: COMMON NORMALS: normocephalic, atraumatic and hearing grossly normal bilaterally HEAD & SCALP: normocephalic and atraumatic Resp: COMMON NORMALS: normal respiratory effort, No retractions, No use of accessory muscles and clear to auscultation bilaterally AUSCULTATION: clear to auscultation bilaterally Cardio: COMMON NORMALS: regular rate, regular rhythm and No murmurs present (Cardio) RATE: regular rate RHYTHM: regular rhythm GI: COMMON NORMALS: No hepatosplenomegaly present INSPECTION: Yes abdominal distension AUSCULTATION: Yes Hypoactive bowel sounds present PALPATION: Y es Tenderness to palpation present (GI), No Guarding due to palpation present (GI) and Yes No hepatosplenomegaly present Extremity: COMMON NORMALS: normal to inspection, capillary refill normal, no clubbing, cyanosis or edema, no calf tenderness and no pedal edema Neuro: SENSORIUM/ORIENTATION: Yes oriented to person, Yes oriented to place and Yes oriented to time Skin: COMMON NORMALS: no rashes or lesions noted GENERAL SKIN EXAM: no rashes or lesions noted Course 2 Vital Signs: Vital signs: Vital Signs Temperature 97.0 F L 08/17/24 14:15 Pulse Rate 85 08/17/24 14:15 Respiratory Rate 18 08/17/24 14:15 Blood Pressure 131/73 08/17/24 14:15 Pulse Oximetry 100 08/17/24 14:15 Oxygen Delivery Me thod Room Air 08/17/24 14:15 MDM - Nausea/Vomiting/Diarrhea Medical Decision Making Patient has a bowel obstruction with transition point she had similar presentations in the past she has not had any hematochezia or melena. Will admit the patient energies to move place discussed with hospitalist and with surgery. Dr. Elizabeth is on surgery he has reviewed the CT and is planning to take her directly to surgery from the ER. Medical Records I reviewed the patient's medical records. Lab Data I reviewed the patient's lab results. 08/17/24 10:46 08/17/24 10:46 Radiology Impressions Abdomen/Pelvis CT 08/17/24 10:39 IMPRESSION: 1. Fluid distended loops of mid and distal small bowel extending to the ileocecal valve with marked diffuse hyperemia and wall thickening with associated submucosal fat deposition. This can be seen with inflammatory bowel disease. Recommend correlation for superimposed acute infectious or inflammatory enteritis. 2. Suspected area of transition in the mid abdomen with a small amount of associated fluid may be due to adhesions or internal hernia. Findings suspicious for developing partial small bowel obstruction. Area of transition noted on the bookmarked images 3. Mucosal enhancement involving the sigmoid colon compatible with mild distal colitis. 4. Air-fluid level in the stomach. 5. Cholecystectomy clips. 6. Small amount of free fluid in the pelvis. Abdomen X-Ray 08/17/24 13:33 IMPRESSION: Nasogastric tube placement with the tip in the junction of the fundus and body of the stomach. Stomach significantly distended with fluid and air. Laboratory Results WBC 6.96 10^3/uL (3.29-11.43) 08/17/24 10:46 RBC 5.63 10^6/uL (3.85-5.65) 08/17/24 10:46 Hgb 15.40 g/dL (11.27-16.99) 08/17/24 10:46 Hct 48.3 % (36-47) H 08/17/24 10:46 MCV 85.8 fl (85-98) 08/17/24 10:46 MCH 27.4 pg (27-33) 08/17/24 10:46 MCHC 31.9 g/dL (30-55) 08/17/24 10:46 RDW 14.5 % (12.1-15.1) 08/17/24 10:46 Plt Count 215 10^3/cmm (157-399) 08/17/24 10:46 MPV 11.9 fL (7.4-10.4) H 08/17/24 10:46 Neut % (Auto) 75.5 % 08/17/24 10:46 Lymph % (Auto) 18.2 % 08/17/24 10:46 [place] % (Auto) 5.3 % 08/17/24 10:46 Eos % (Auto) 0.6 % 08/17/24 10:46 Baso % (Auto) 0.1 % 08/17/24 10:46 Neut # (Auto) 5.25 10^3/uL (1.8-7.7) 08/17/24 10:46 Lymph # (Auto) 1.3 10^3/uL (0.8-4.8) 08/17/24 10:46 [place] # (Auto) 0.4 10^3/uL (0.2-0.9) 08/17/24 10:46 Eos # (Auto) 0.0 10^3/uL (0.0-0.8) 08/17/24 10:46 Baso # (Auto) 0.0 10^3/uL (0.0-0.1) 08/17/24 10:46 Nucleated RBC % (auto) 0 % 08/17/24 10:46 Nucleated RBCs # 0.0 /100WBC 08/17/24 10:46 Sodium 139 mmol/L (136-145) 08/17/24 10:46 Potassium 4.4 mmol/L (3.5-5.1) 08/17/24 10:46 Chloride 103 mmol/L (98-107) 08/17/24 10:46 Carbon Dioxide 25 mmol/L (22-29) 08/17/24 10:46 Anion Gap 15.4 (5-19) 08/17/24 10:46 BUN 14 mg/dL (6-20) 08/17/24 10:46 Creatinine 1.1 mg/dL (0.5-0.9) H 08/17/24 10:46 GFR Calculation 51.0 mL/min (90-130) L 08/17/24 10:46 Glucose 126 mg/dL (65-115) H 08/17/24 10:46 Calculated Osmolality 290 mOsm/kg (285-295) 08/17/24 10:46 Lactic Acid 0.8 mmol/L (0.5-2.2) 08/17/24 10:46 Calcium 9.4 mg/dL (8.5-10.5) 08/17/24 10:46 Total Bilirubin 0.5 mg/dL (0.15-1.2) 08/17/24 10:46 AST 12 U/L (0-32) 08/17/24 10:46 ALT 17 U/L (0-33) 08/17/24 10:46 Alkaline Phosphatase 101 U/L (35-105) 08/17/24 10:46 Total Protein 6.6 g/dL (6.6-8.7) 08/17/24 10:46 Albumin 4.6 g/dL (3.5-5.2) 08/17/24 10:46 Globulin 2.0 g/dL (1.3-4.6) 08/17/24 10:46 Lipase 23 U/L (13-60) 08/17/24 10:46 Procalcitonin 0.11 ng/mL (0-0.5) 08/17/24 10:46 Urine Color Yellow (Yellow) 08/17/24 12:25 Urine Appearance Clear (CLEAR) 08/17/24 12:25 Urine pH 5 (5-7) 08/17/24 12:25 Ur Specific [place] 1.010 (1.005-1.030) 08/17/24 12:25 Urine Protein 1+ (Negative) H 08/17/24 12:25 Urine Glucose (UA) Norm (Normal) 08/17/24 12:25 Urine Ketones Negative (Negative) 08/17/24 12:25 Urine Blood Neg (Negative) 08/17/24 12:25 Urine Nitrate Negative (Negative) 08/17/24 12:25 Urine Bilirubin Neg (Negative) 08/17/24 12:25 Urine Urobilinogen Norm mg/dL (Negative) 08/17/24 12:25 Ur Leukocyte Esterase Trace (Negative) H 08/17/24 12:25 Urine RBC 0-2 /hpf (0-2) 08/17/24 12:25 Urine WBC 6-10 /hpf (0-5) 08/17/24 12:25 Ur Squamous Epith Cells 6-10 /hpf (0-5) 08/17/24 12:25 Amorphous Sediment Not Reportable 08/17/24 12:25 Urine Bacteria Trace /hpf (NONE) 08/17/24 12:25 Hyaline Casts 0.40 /lpf 08/17/24 12:25 All radiology interpretation(s) finalized by discharge Discharge Plan Discharge Patient Disposition: Admitted As Inpatient Clinical Impression: Small bowel obstruction Condition: Stable Coding Level of Care Code ED Automobile Radiator Mechanic for 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
[2024-08-17 10:54] LABS: Basophils % 0.1 %; Eosinophils % 0.6 %; Hematocrit 48.3 % (36-47); Lymphocytes # 1.3 10^3/uL (0.8-4.8); Lymphocytes % 18.2 %; Mean Corpuscular HGB Conc 31.9 g/dL (30-55); Mean Corpuscular Hemoglobin 27.4 pg (27-33); Mean Corpuscular Volume 85.8 fl (85-98); Mean Platelet Volume 11.9 fL (7.4-10.4); Monocytes # 0.4 10^3/uL (0.2-0.9); Monocytes % 5.3 %; Neutrophils # 5.25 10^3/uL (1.8-7.7); Neutrophils % 75.5 %; Nucleated Red Blood Cells % 0 %; Platelet Count 215 10^3/cmm (157-399); Red Blood Count 5.63 10^6/uL (3.85-5.65); Red Cell Distribution Width 14.5 % (12.1-15.1); White Blood Count 6.96 10^3/uL (3.29-11.43)
[2024-08-17 11:14] LABS: Alanine Aminotransferase 17 U/L (0-33); Albumin Level 4.6 g/dL (3.5-5.2); Alkaline Phosphatase 101 U/L (35-105); Anion Gap 15.4 (5-19); Aspartate Amino Transferase 12 U/L (0-32); Blood Urea Nitrogen 14 mg/dL (6-20); Calcium 9.4 mg/dL (8.5-10.5); Carbon Dioxide 25 mmol/L (22-29); Chloride 103 mmol/L (98-107); Creatinine Clr Calc Pharmacy 54.1407; Glucose 126 mg/dL (65-115); Lipase 23 U/L (13-60); Osmolality Calculated 290 mOsm/kg (285-295); Potassium 4.4 mmol/L (3.5-5.1); Sodium 139 mmol/L (136-145); Total Bilirubin 0.5 mg/dL (0.15-1.2); Total Protein 6.6 g/dL (6.6-8.7)
[2024-08-17] MEDS: ondansetron 2 mg/ML SDV 2 mL 4 MG IVP (11:27)
[2024-08-17 11:50] LABS: Lactic Sepsis W/Reflex 0.8 mmol/L (0.5-2.2)
[2024-08-17] MEDS: iohexol 350 mg/mL 500 mL Btl (per mL) IV (12:05)
[2024-08-17 12:42] LABS: Protein Urine 1+ (Negative); Urine Appearance Clear (CLEAR); Urine Color Yellow (Yellow); pH Urine 5 (5-7)
[2024-08-17 12:43] LABS: Add Urine Microscopic? YES; Bilirubin Urine Neg (Negative); Blood Urine Neg (Negative); Glucose Urine UA Norm (Normal); Ketones Urine Negative (Negative); Leukocyte Esterase Urine Trace (Negative); Nitrate Urine Negative (Negative); Urobilinogen Urine Norm (Negative)
[2024-08-17 12:46] LABS: Bacteria Urine Trace /hpf; RBC Urine 0-2 /hpf (0-2)
[2024-08-17] MEDS: LORazepam 2 mg/mL INJ 1 mL IVP (13:13)
[2024-08-17] MEDS: cetacaine Spray 5 gm Can 1 SPRAY TOPICAL (13:13)
[2024-08-17 13:23] LABS: UA Slide Review UA Slide Review Perf
--- NOTE | 2024-08-17 13:33 | XR_ITS ---
WS: [id number] XR abdomen 1V* [id number] REASON FOR EXAM: NG PLACEMENT FINDINGS: Nasogastric tube is in place. It appears to be within a stomach which is significantly distended with fluid and air. A CT scan from earlier this AM demonstrated a large fluid and gas-filled stomach. No significantly distended small bowel or colon is identified. However the distended small bowel loop s on the CT scan were fluid-filled, therefore may not be readily identifiable on plain film. No free air or retroperitoneal air. XR/XR abdomen 1V* [id number] IMPRESSION: Nasogastric tube placement with the tip in the junction of the fundus and body of the stomach. Stomach significantly distended with fluid and air.
[2024-08-17 13:58] LABS: Procalcitonin 0.11 ng/mL (0-0.5)
--- NOTE | 2024-08-17 14:18 | P.ANESASSM_ITS ---
Pre-Anesthetic Assessment Height/Weight: Height 1.55 m Weight 82.1 kg Temp Pulse Resp BP Pulse Ox O2 Del Method 98.1 F 85 18 148/80 98 Room Air 08/17/24 10:26 08/17/24 12:27 08/17/24 10:26 08/17/24 12:27 08/17/24 12:27 08/17/24 12:27 Operation Date: 08/17/24 14:00 Proposed Procedures p Exploratory Laparotomy(Not Applicable) - Rj Elizabeth MD s Small Bowel Resection(Not Applicable) - Rj Elizabeth MD Familial anesthetic complications: Patient states she flatlined during a breast surgery in 2019, which required chest compressions. Shes says it was from too much anesthesia and she's had surgery 6 times since then and done well Was Beta Cristy taken within 24 hours: Yes Was Clonidine taken within 24 hours: N/A Last intake: > 8 hrs Social No alcohol and No tobacco Exam alert, oriented x 3, clear to auscultation bilaterally and regular rate & rhythm Airway Mallampati: Class II Dentition: other (no teeth) CV/HEM Hypertension tachycardia states able to perform > 4 METS, no CP or GRIFFITHS/SOB syncopal episodes during straining while on toilet, according to most recent cardiology notes, but hasn't occured since january GI Gastroesophageal Reflux Disease Anesthetic Plan ASA status: 3E Anesthesia: General Other: RSI Risk of > 500 ml blood loss (7ml/kg in children): No Other Pertinent Information From Cardiology note: She reports that she underwent a [facility] She said that her blood pressure started dropping and gradually she went to a flat line during the procedure.She had CPR on the table. Pt was seen by a junior linux administrator in the hospital and was told her heart is OK. She had and ECHO and was told to be OK. Details are not available. The patient has not had any chest pain, chest tightness, palpitation or any specific cardiac symptoms since the hospital discharge. The functional status continues to improve. She is planning to have reconstructive surgery in the chest Medications/Allergies Home Medications Medication Instructions Recorded Confirmed Last Taken Type acyclovir 800 mg tablet 800 mg PO TID PRN BREAKOUTS 09/02/22 08/17/24 Unknown History pregabalin 100 mg capsule 100 mg PO Q12H 09/02/22 08/17/24 08/16/24 History pantoprazole 40 mg tablet,delayed 40 mg PO QAM 06/14/23 08/17/24 08/16/24 History release ondansetron 4 mg disintegrating 4 mg PO Q6H PRN nausea and 10/04/23 08/17/24 Unknown Rx tablet vomiting #14 tabs promethazine 25 mg tablet 25 mg PO Q6H PRN nausea and 01/16/24 08/17/24 08/17/24 Rx vomiting #20 tabs quetiapine 25 mg tablet (Seroquel) 25 mg PO BID PRN anxiety/psychosis 04/05/24 08/17/24 08/16/24 Rx #60 tabs quetiapine 50 mg tablet (Seroquel) 50 mg PO BEDTIME #30 tabs 04/05/24 08/17/24 08/16/24 Rx furosemide 20 mg tablet 20 mg PO DAILY PRN Edema 05/29/24 08/17/24 Unknown History potassium chloride 10 mEq 10 meq PO DAILY PRN Edema 05/29/24 08/17/24 Unknown History tablet,extended release carvedilol 25 mg tablet 25 mg PO BID #180 tabs 06/21/24 08/17/24 08/16/24 Rx sertraline 50 mg tablet (Zoloft) 50 mg PO QAM #30 tabs 06/29/24 08/17/24 08/17/24 Rx trazodone 100 mg tablet 200 mg (2 x 100 mg) PO BEDTIME 06/29/24 08/17/24 08/16/24 Rx Sleep #30 tabs erenumab-aooe 140 mg/mL See Rx Instructions .Route 08/08/24 08/17/24 08/16/24 Rx subcutaneous auto-injector .COMPLEX #1 mL (Aimovig Autoinjector) sumatriptan succinate 100 mg tablet See Rx Instructions .Route 08/08/24 08/17/24 Unknown Rx .COMPLEX #12 tabs topiramate 100 mg tablet (Topamax) 100 mg PO DAILY #30 tabs 08/08/24 08/17/24 08/17/24 Rx semaglutide 1 mg/dose (4 mg/3 mL) 25 mg SUBCUT Q7D 08/17/24 08/17/24 Unknown History subcutaneous pen injector (Ozempic) Allergies Allergy/AdvReac Type Severity Reaction Status Date / Time risperidone [From Risperdal] Allergy Severe ADR-Faintin Verified 08/08/24 08:33 g dexchlorpheniramine Allergy ADR-Faintin Verified 08/08/24 08:33 [From Rymed g (dexchlorpheniramine-PE)] morphine Allergy ADR-Migrain Verified 08/08/24 08:33 e phenylephrine Allergy ADR-Faintin Verified 08/08/24 08:33 [From Rymed g (dexchlorpheniramine-PE)] Sulfa (Sulfonamide Allergy ALGY-Hives Verified 08/08/24 08:33 Antibiotics) amlodipine AdvReac Mild Unknown Verified 08/08/24 08:33 [facility] Anesthesia Medical History Small bowel obstruction Acute cystitis without hematuria Partial small bowel obstruction Dehydration Hypertension Obesity (BMI 30-39.9) History of Holter monitoring 04/2023 Baseline rhythm is sinus rhythm. HR ranged from 56-135, avg 80 bpm, nnspecified patient symptom correlated with isolated PVC History of electroencephalogram 05/2023 IMPRESSION: This was a normal routine EEG, awake and drowsy and asleep, with no behavioral or electrographic epileptiform activity. A normal EEG does not exclude a diagnosis of epilepsy. DCIS (ductal carcinoma in situ) ER/ID negative, tamoxifen History of cardiac arrest Benign essential HTN Breast cancer Chronic migraine without aura, intractable, with status migrainosus Recurrent syncope History of colon polyps Psychiatric care Inappropriate sinus tachycardia Malignant hypertension History of malignant melanoma Fear of insects (Unknown) Specifically tics Major depressive disorder, recurrent, severe with psychotic symptoms [facility] managing Lumbar radiculitis Herpes genitalia Hot flashes Irritable bowel disease Depression with anxiety HTN (hypertension) with goal to be determined Borderline personality disorder Functional neurological symptom disorder with attacks or seizures Dr. Chepe Pickering-- Neurology [facility] Surgical History History of appendectomy (01/2021) History of exploratory laparotomy (01/2021) with lysis of adhesions, performed due to SBO Hx of bilateral mastectomy History of colonoscopy Intra-abdominal adhesions (~10/2020) adhesiolysis / incidental appendectomy-- at same time as bowel obstruction H/O tubal ligation (~2008) Hx of abdominoplasty (~2009) History of augmentation of both breasts 2012 silicone implants, removed at time of mastectomies Hx of section (~2008) x 1 Hx of hernia repair (~2012) ventral (patient thinks mesh was used) Hx of hysterectomy (~2008) CHRISTINA-- ovaries spared. Hx of decompressive lumbar laminectomy ---2014 L5-S1 [place], [place]. ---10/20/2020 Revision; Dr Dalia ALBERT Family History Mother Breast cancer dx age unknown Hypertension Grandmother Breast cancer Maternal--dx age 60's Hypertension Maternal and Paternal Sister No problems noted. Daughter Uterine cancer dx age 28 Father Diabetes Hypertension Stroke Grandfather Hypertension maternal and Paternal Denies family history of Colon cancer Ovarian cancer Social History Smoking and tobacco/nicotine status: never used tobacco/nicotine Alcohol intake: current Alcohol intake frequency: holidays/special occasions only Alcohol type: wine Substance/Drug Use: never Do you think of yourself as: Straight/Heterosexual Data Anesthesia 08/17/24 10:46 08/17/24 10:46 Short CBC 08/17/24 Range/Units 10:46 WBC 6.96 (3.29-11.43) 10^3/uL Hgb 15.40 (11.27-16.99) g/dL Hct 48.3 H (36-47) % MCV 85.8 (85-98) fl Plt Count 215 (157-399) 10^3/cmm Neut % (Auto) 75.5 % Neut # (Auto) 5.25 (1.8-7.7) 10^3/uL BMP 08/17/24 10:46 Sodium 139 Potassium 4.4 Chloride 103 Carbon Dioxide 25 BUN 14 Creatinine 1.1 H Glucose 126 H Calcium 9.4 Liver Function 08/17/24 Range/Units 10:46 Total Bilirubin 0.5 (0.15-1.2) mg/dL AST 12 (0-32) U/L ALT 17 (0-33) U/L Alkaline Phosphatase 101 (35-105) U/L Albumin 4.6 (3.5-5.2) g/dL Urine 08/17/24 Range/Units 12:25 Urine Color Yellow (Yellow) Urine Appearance Clear (CLEAR) Urine pH 5 (5-7) Ur Specific [place] 1.010 (1.005-1.030) Urine Protein 1+ H (Negative) Urine Glucose (UA) Norm (Normal) Urine Ketones Negative (Negative) Urine Nitrate Negative (Negative) Urine Bilirubin Neg (Negative) Ur Leukocyte Esterase Trace H (Negative) Urine RBC 0-2 (0-2) /hpf Urine WBC 6-10 (0-5) /hpf Cardiac Studies: 2 Echocardiogram Ultrasound 08/08/20 Cardiac Event Monitor 02/23/23
--- NOTE | 2024-08-17 14:30 | PM.HP ---
Providers/Chief Complaint Primary Care Provider: Roseanne Marin Chief Complaint: dirrhea, vommiting, abd pain History of Present Illness Anne Johnsontaker is a 59 year old female with history of multiple SBO's in the past who presents with another SBO. CT scan shows several loops of possibly compromised bowel. Patient reports nausea and vomiting today. Having some diarrhea. Abdomen is benign. No leukocytosis. Medications/Allergies Home Medications Medication Instructions Recorded Confirmed Last Taken Type acyclovir 800 mg tablet 800 mg PO TID PRN BREAKOUTS 09/02/22 08/17/24 Unknown History pregabalin 100 mg capsule 100 mg PO Q12H 09/02/22 08/17/24 08/16/24 History pantoprazole 40 mg tablet,delayed 40 mg PO QAM 06/14/23 08/17/24 08/16/24 History release ondansetron 4 mg disintegrating 4 mg PO Q6H PRN nausea and 10/04/23 08/17/24 Unknown Rx tablet vomiting #14 tabs promethazine 25 mg tablet 25 mg PO Q6H PRN nausea and 01/16/24 08/17/24 08/17/24 Rx vomiting #20 tabs quetiapine 25 mg tablet (Seroquel) 25 mg PO BID PRN anxiety/psychosis 04/05/24 08/17/24 08/16/24 Rx #60 tabs quetiapine 50 mg tablet (Seroquel) 50 mg PO BEDTIME #30 tabs 04/05/24 08/17/24 08/16/24 Rx furosemide 20 mg tablet 20 mg PO DAILY PRN Edema 05/29/24 08/17/24 Unknown History potassium chloride 10 mEq 10 meq PO DAILY PRN Edema 05/29/24 08/17/24 Unknown History tablet,extended release carvedilol 25 mg tablet 25 mg PO BID #180 tabs 06/21/24 08/17/24 08/16/24 Rx sertraline 50 mg tablet (Zoloft) 50 mg PO QAM #30 tabs 06/29/24 08/17/24 08/17/24 Rx trazodone 100 mg tablet 200 mg (2 x 100 mg) PO BEDTIME 06/29/24 08/17/24 08/16/24 Rx Sleep #30 tabs erenumab-aooe 140 mg/mL See Rx Instructions .Route 08/08/24 08/17/24 08/16/24 Rx subcutaneous auto-injector .COMPLEX #1 mL (Aimovig Autoinjector) sumatriptan succinate 100 mg tablet See Rx Instructions .Route 08/08/24 08/17/24 Unknown Rx .COMPLEX #12 tabs topiramate 100 mg tablet (Topamax) 100 mg PO DAILY #30 tabs 08/08/24 08/17/24 08/17/24 Rx semaglutide 1 mg/dose (4 mg/3 mL) 25 mg SUBCUT Q7D 08/17/24 08/17/24 Unknown History subcutaneous pen injector (Ozempic) Allergies Allergy/AdvReac Type Severity Reaction Status Date / Time risperidone [From Risperdal] Allergy Severe ADR-Faintin Verified 08/08/24 08:33 g dexchlorpheniramine Allergy ADR-Faintin Verified 08/08/24 08:33 [From Rymed g (dexchlorpheniramine-PE)] morphine Allergy ADR-Migrain Verified 08/08/24 08:33 e phenylephrine Allergy ADR-Faintin Verified 08/08/24 08:33 [From Rymed g (dexchlorpheniramine-PE)] Sulfa (Sulfonamide Allergy ALGY-Hives Verified 08/08/24 08:33 Antibiotics) amlodipine AdvReac Mild Unknown Verified 08/08/24 08:33 PFSH Acute PFSH: Medical History Small bowel obstruction Acute cystitis without hematuria Partial small bowel obstruction Dehydration Hypertension Obesity (BMI 30-39.9) History of Holter monitoring 04/2023 Baseline rhythm is sinus rhythm. HR ranged from 56-135, avg 80 bpm, nnspecified patient symptom correlated with isolated PVC History of electroencephalogram 05/2023 IMPRESSION: This was a normal routine EEG, awake and drowsy and asleep, with no behavioral or electrographic epileptiform activity. A normal EEG does not exclude a diagnosis of epilepsy. DCIS (ductal carcinoma in situ) ER/DC negative, tamoxifen History of cardiac arrest Benign essential HTN Breast cancer Chronic migraine without aura, intractable, with status migrainosus Recurrent syncope History of colon polyps Psychiatric care Inappropriate sinus tachycardia Malignant hypertension History of malignant melanoma Fear of insects (Unknown) Specifically tics Major depressive disorder, recurrent, severe with psychotic symptoms [facility] managing Lumbar radiculitis Herpes genitalia Hot flashes Irritable bowel disease Depression with anxiety HTN (hypertension) with goal to be determined Borderline personality disorder Functional neurological symptom disorder with attacks or seizures Dr. Chepe Pickering-- Neurology [facility] Surgical History History of appendectomy (01/2021) History of exploratory laparotomy (01/2021) with lysis of adhesions, performed due to SBO Hx of bilateral mastectomy History of colonoscopy Intra-abdominal adhesions (~10/2020) adhesiolysis / incidental appendectomy-- at same time as bowel obstruction H/O tubal ligation (~2008) Hx of abdominoplasty (~2009) History of augmentation of both breasts 2012 silicone implants, removed at time of mastectomies Hx of section (~2008) x 1 Hx of hernia repair (~2012) ventral (patient thinks mesh was used) Hx of hysterectomy (~2008) CHRISTINA-- ovaries spared. Hx of decompressive lumbar laminectomy ---2014 L5-S1 [facility] IN [place], [place] ---10/20/2020 Revision; Dr Dalia ALBERT Family History Mother Breast cancer dx age unknown Hypertension Grandmother Breast cancer Maternal--dx age 60's Hypertension Maternal and Paternal Sister No problems noted. Daughter Uterine cancer dx age 28 Father Diabetes Hypertension Stroke Grandfather Hypertension maternal and Paternal Denies family history of Colon cancer Ovarian cancer Social History Smoking and tobacco/nicotine status: never used tobacco/nicotine Alcohol intake: current Alcohol intake frequency: holidays/special occasions only Alcohol type: wine Substance/Drug Use: never Do you think of yourself as: Straight/Heterosexual Vitals/I&O/Wt Last Vital Signs Temp 97.0 F L 08/17/24 14:15 Pulse 85 08/17/24 14:15 Resp 18 08/17/24 14:15 BP 131/73 08/17/24 14:15 Pulse Ox 100 08/17/24 14:15 O2 Del Method Room Air 08/17/24 14:15 Weight last 48 hrs Weight 181 lb Physical Exam Narrative: Chest: Unlabored breathing room air. No lymphadenopathy. Heart: Regular rate and rhythm. Abdomen: Soft, diffusely tender, distended. No masses or lymphadenopathy. Non peritonitic. Data 08/17/24 10:46 08/17/24 10:46 A&P Assessment and plan (1) Small bowel obstruction: Plan 59-year-old female who presents with an SBO. CT scan findings concerning for threatened bowel. The patient agrees to proceed with diagnostic laparoscopy, possible exploratory laparotomy, possible bowel resection, possible ABThera. Patient's hospital stay is expected to exceed 2 nights. Attestations Medical Necessity Statement*: Need for abdominal exploration given concerns for threatened bowel Coding Level of Care Code 10215 Diagnoses Small bowel obstruction K56.609 Time Spent (min) 30
[2024-08-17] MEDS: sodium chloride 0.9% 1,000 ML 30 ML IV (14:31)
--- NOTE | 2024-08-17 17:18 | PM.OP ---
Operative Report Date of procedure: August 17, 2024 Pre-op diagnosis: SBO with internal hernia Post-op diagnosis: Adhesive SBO. No threatened bowel. Post-op findings: Dense adhesions in the midline. Transition point in the left upper quadrant. Adhesive small bowel obstruction. Bowel was viable in its entirety. Procedure done: Diagnostic laparoscopy, laparoscopic lysis of adhesions, exploratory laparotomy. Specimens removed/disposition: N/A Pathology: none sent Surgeon: Rj Elizabeth MD Pelt Inspector: N/A Anesthesia: General Estimated blood loss (mL): 50 Complications: N/A Findings: Dense adhesions in the midline. Transition point in the left upper quadrant. Adhesive small bowel obstruction. Bowel was viable in its entirety. Colon was suspected and was found to be viable and uninjured. Ran small bowel 4 times. Condition: stable Disposition: floor Brief History: 59-year-old female with multiple abdominal surgeries. She has had multiple SBO's that had required exploration and lysis of adhesions. She presented today with new onset nausea and vomiting as well as abdominal pain. CT scan was concerning for an internal hernia and threatened bowel. Discussed risk and benefits of proceeding to the operating room for diagnostic laparoscopy, possible exploratory laparotomy, possible bowel resection, possible ABThera. Patient agreed to proceed. Procedure: After obtaining consent in the preoperative area the patient was brought to the operating room table and placed supine. SCDs were on and working. General anesthesia was induced. Preoperative Rocephin was administered. Montanez catheter was placed. The abdomen was prepped and draped in the usual sterile fashion. Access to the peritoneal cavity was achieved using a Dyson trocar at the umbilicus. Insufflation was achieved to 15 mmHg. The abdomen was inspected and no iatrogenic injuries were found. I did encounter dense adhesions in the midline from her prior surgeries. I then placed two 5 mm ports in the right flank. I proceeded to perform laparoscopic lysis of adhesions using a LigaSure device. I used a combination of blunt and energy dissection to achieve this. Once I took down the adhesions the midline I then proceeded to inspect the bowel. The small bowel was found to be viable but I was not able to run the bowel in its entirety laparoscopically. For that reason I proceeded to convert to an exploratory laparotomy. I was then able to continue the lysis of adhesions bluntly and sharply. I ran the bowel 4 times from the cecum to the ligament of Treitz and ensured that its entirety looked viable and healthy. I encountered no enterotomies. I ensured that the NG tube was placed in the right position in the stomach and it was secured at the head of the bed. I also examined the colon and was found to be healthy and uninjured. I then placed Interceed at the midline and closed using 0 looped PDS. Skin was closed using dayton. A silver dressing was applied to the incisions. The patient will cover anesthesia without any complications and was transferred to PACU
--- NOTE | 2024-08-17 17:28 | PM.MISC ---
Miscellaneous Note Note: Performed extensive lysis of adhesions. Ran bowel 4 times. Bowel looked healthy. No bowel resection. NG tube positioning confirmed in OR. Plan: NG tube to low continuous suction IV fluids Electrolyte derangement correction Minimize narcotics Encourage out of bed Await return of bowel function
--- NOTE | 2024-08-17 17:45 | ANE.PACU2 ---
Inpatient post-anesthesia follow up: Airway intact: Yes Vital signs: Temperature 98.3 F Pulse Rate 83 Respiratory Rate 16 Blood Pressure 136/66 Pulse Oximetry 99 Oxygen Delivery Me thod Nasal Cannula Oxygen Flow Rate 2 Fraction of Inspir ed Oxygen Hydration adequate: Yes Nausea and vomiting: No Pain level: 1 Mental status: Baseline
[2024-08-17] MEDS: sodium chloride 0.9% 1,000 ML 75 ML IV (18:16)
--- NOTE | 2024-08-17 19:28 | PM.HP ---
Providers/Chief Complaint Admitting Physician: Rj Elizabeth MD Primary Care Provider: Roseanne Marin Chief Complaint: dirrhea, vommiting, abd pain History of Present Illness Anne Payne is a 59 year old female Postop day 0 status post exploratory laparotomy. Patient was recently discharged from the hospital after conservative management for bowel obstruction. Patient presented with chief complaint abdominal pain, nausea, vomiting and diarrhea. She is well aware when to come to the hospital because of her recurrent bowel obstruction signs and symptoms. CT abdomen pelvis showing signs for threatened bowel, fluid distention loops of mid and distal small bowel extending to ileocecal valve with diffuse hyperemia and wall thickening, patient went to the OR directly from the ER, hospitalist has been asked to admit the patient and surgery will stay as the consulting team. Review of Systems Const: Denies: fever(s) Eyes: Denies: change in vision ENMT: Denies: throat pain Card: Denies: chest pain Resp: Denies: dyspnea GI: Reports: abdominal pain, nausea and vomiting Medications/Allergies Home Medications Medication Instructions Recorded Confirmed Last Taken Type acyclovir 800 mg tablet 800 mg PO TID PRN BREAKOUTS 09/02/22 08/17/24 Unknown History pregabalin 100 mg capsule 100 mg PO Q12H 09/02/22 08/17/24 08/16/24 History pantoprazole 40 mg tablet,delayed 40 mg PO QAM 06/14/23 08/17/24 08/16/24 History release ondansetron 4 mg disintegrating 4 mg PO Q6H PRN nausea and 10/04/23 08/17/24 Unknown Rx tablet vomiting #14 tabs promethazine 25 mg tablet 25 mg PO Q6H PRN nausea and 01/16/24 08/17/24 08/17/24 Rx vomiting #20 tabs quetiapine 25 mg tablet (Seroquel) 25 mg PO BID PRN anxiety/psychosis 04/05/24 08/17/24 08/16/24 Rx #60 tabs quetiapine 50 mg tablet (Seroquel) 50 mg PO BEDTIME #30 tabs 04/05/24 08/17/24 08/16/24 Rx furosemide 20 mg tablet 20 mg PO DAILY PRN Edema 05/29/24 08/17/24 Unknown History potassium chloride 10 mEq 10 meq PO DAILY PRN Edema 05/29/24 08/17/24 Unknown History tablet,extended release carvedilol 25 mg tablet 25 mg PO BID #180 tabs 06/21/24 08/17/24 08/16/24 Rx sertraline 50 mg tablet (Zoloft) 50 mg PO QAM #30 tabs 06/29/24 08/17/24 08/17/24 Rx trazodone 100 mg tablet 200 mg (2 x 100 mg) PO BEDTIME 06/29/24 08/17/24 08/16/24 Rx Sleep #30 tabs erenumab-aooe 140 mg/mL See Rx Instructions .Route 08/08/24 08/17/24 08/16/24 Rx subcutaneous auto-injector .COMPLEX #1 mL (Aimovig Autoinjector) sumatriptan succinate 100 mg tablet See Rx Instructions .Route 08/08/24 08/17/24 Unknown Rx .COMPLEX #12 tabs topiramate 100 mg tablet (Topamax) 100 mg PO DAILY #30 tabs 08/08/24 08/17/24 08/17/24 Rx semaglutide 1 mg/dose (4 mg/3 mL) 25 mg SUBCUT Q7D 08/17/24 08/17/24 Unknown History subcutaneous pen injector (Ozempic) Allergies Allergy/AdvReac Type Severity Reaction Status Date / Time risperidone [From Risperdal] Allergy Severe ADR-Faintin Verified 08/08/24 08:33 g dexchlorpheniramine Allergy ADR-Faintin Verified 08/08/24 08:33 [From Rymed g (dexchlorpheniramine-PE)] morphine Allergy ADR-Migrain Verified 08/08/24 08:33 e phenylephrine Allergy ADR-Faintin Verified 08/08/24 08:33 [From Rymed g (dexchlorpheniramine-PE)] Sulfa (Sulfonamide Allergy ALGY-Hives Verified 08/08/24 08:33 Antibiotics) amlodipine AdvReac Mild Unknown Verified 08/08/24 08:33 PFSH Acute PFSH: Medical History Small bowel obstruction Acute cystitis without hematuria Partial small bowel obstruction Dehydration Hypertension Obesity (BMI 30-39.9) History of Holter monitoring 04/2023 Baseline rhythm is sinus rhythm. HR ranged from 56-135, avg 80 bpm, nnspecified patient symptom correlated with isolated PVC History of electroencephalogram 05/2023 IMPRESSION: This was a normal routine EEG, awake and drowsy and asleep, with no behavioral or electrographic epileptiform activity. A normal EEG does not exclude a diagnosis of epilepsy. DCIS (ductal carcinoma in situ) ER/ND negative, tamoxifen History of cardiac arrest Benign essential HTN Breast cancer Chronic migraine without aura, intractable, with status migrainosus Recurrent syncope History of colon polyps Psychiatric care Inappropriate sinus tachycardia Malignant hypertension History of malignant melanoma Fear of insects (Unknown) Specifically tics Major depressive disorder, recurrent, severe with psychotic symptoms [facility] managing Lumbar radiculitis Herpes genitalia Hot flashes Irritable bowel disease Depression with anxiety HTN (hypertension) with goal to be determined Borderline personality disorder Functional neurological symptom disorder with attacks or seizures Dr. Chepe Pickering-- Neurology [facility] Surgical History History of appendectomy (01/2021) History of exploratory laparotomy (01/2021) with lysis of adhesions, performed due to SBO Hx of bilateral mastectomy History of colonoscopy Intra-abdominal adhesions (~10/2020) adhesiolysis / incidental appendectomy-- at same time as bowel obstruction H/O tubal ligation (~2008) Hx of abdominoplasty (~2009) History of augmentation of both breasts 2013 silicone implants, removed at time of mastectomies Hx of section (~2008) x 1 Hx of hernia repair (~2012) ventral (patient thinks mesh was used) Hx of hysterectomy (~2008) CHRISTINA-- ovaries spared. Hx of decompressive lumbar laminectomy ---2014 L5-S1 [facility] [place], [place] ---10/20/2020 Revision; Dr Dalia ALBERT Family History Mother Breast cancer dx age unknown Hypertension Grandmother Breast cancer Maternal--dx age 60's Hypertension Maternal and Paternal Sister No problems noted. Daughter Uterine cancer dx age 28 Father Diabetes Hypertension Stroke Grandfather Hypertension maternal and Paternal Denies family history of Colon cancer Ovarian cancer Social History Smoking and tobacco/nicotine status: never used tobacco/nicotine Alcohol intake: current Alcohol intake frequency: holidays/special occasions only Alcohol type: wine Substance/Drug Use: never Do you think of yourself as: Straight/Heterosexual Vitals/I&O/Wt Last Vital Signs Temp 98.3 F 08/17/24 18:33 Pulse 90 08/17/24 18:33 Resp 14 08/17/24 18:33 BP 97/69 08/17/24 18:33 Pulse Ox 95 08/17/24 18:33 O2 Del Method Nasal Cannula 08/17/24 18:33 O2 Flow Rate 2 08/17/24 18:33 08/17/24 08/17/24 08/17/24 06:59 14:59 22:59 Intake Total 1300 / 1300 Output Total 200 / 200 Balance 1100 / 1100 Weight last 48 hrs Weight 82.1 kg Weight 82.1 kg Physical Exam Narrative: Patient is postop Awake and alert GCS 15 Nonfocal neuroexam Hemodynamically stable NG tube in place Currently on 2 L Hemodynamically stable Urinary Catheter Management: Montanez: Cath Placed During This Visit: yes Urinary Catheter Date of Insertion: 08/17/24 Urinary Catheter Time of Insertion: 14:57 Data 08/17/24 10:46 08/17/24 10:46 A&P Assessment and plan (1) Benign hypertension: (2) Prediabetes: (3) Small bowel obstruction: (4) Ductal carcinoma in situ (DCIS) of left breast: (5) History of malignant melanoma: (6) S/P exploratory laparotomy: (7) Bowel obstruction: Plan Small bowel obstruction status post exploratory laparotomy Status post adhesiolysis Discontinue vancomycin continue Zosyn for now Continue IV fluids Opiate regimen, Monitor bowel function We will keep her on D5 normal saline DVT prophylaxis heparin Full code N.p.o. Attestations Medical Necessity Statement*: More than 2 midnights anticipated Diagnoses Benign hypertension I10 Prediabetes R73.03 Small bowel obstruction K56.609 Ductal carcinoma in situ (DCIS) of left breast D05.12 History of malignant melanoma Z85.820 S/P exploratory laparotomy Z98.890 Bowel obstruction K56.604
[2024-08-17 19:55] LABS: Glucose Point of Care 121 mg/dL (70-110)
[2024-08-17] MEDS: morphine 4 mg/mL SDV 1 mL 2 MG IVP (20:26)
[2024-08-17] MEDS: piperacillin-tazobactam 3.375 GM in sodium chloride 0.9% (plus) 50 ML IV (20:26)
[2024-08-17] MEDS: dextrose 5%-sod chloride 0.9% 1,000 ML 75 ML IV (20:27)
[2024-08-18] VITALS (10 sets, daily range): BP systolic 107–148; BP diastolic 58–82; PULSE 72–102; RESP 15–18; TEMP 36.6–37.1; O2SAT 94–99
[2024-08-18 01:21] LABS: Glucose Point of Care 153 mg/dL (70-110)
[2024-08-18] MEDS: morphine 4 mg/mL SDV 1 mL 2 MG IVP ×3 (01:32→16:23)
[2024-08-18] MEDS: piperacillin-tazobactam 3.375 GM in sodium chloride 0.9% (plus) 50 ML IV ×3 (04:17→20:03)
[2024-08-18 05:53] LABS: INR 0.93 (0.8-1.2)
[2024-08-18 06:26] LABS: Glucose Point of Care 132 mg/dL (70-110)
[2024-08-18 07:07] LABS: Alanine Aminotransferase 12 U/L (0-33); Albumin Level 3.5 g/dL (3.5-5.2); Alkaline Phosphatase 68 U/L (35-105); Blood Urea Nitrogen 11 mg/dL (6-20); Carbon Dioxide 18 mmol/L (22-29); Creatinine Clr Calc Pharmacy 68.0457; Globulin 2.4 g/dL (1.3-4.6); Glomerular Filtration Rate 64.3 mL/min (90-130); Glucose 132 mg/dL (65-115); Magnesium 2.1 mg/dL (1.7-2.3); Total Bilirubin 0.4 mg/dL (0.15-1.2); Total Protein 5.9 g/dL (6.6-8.7)
[2024-08-18 07:19] LABS: Chloride 107 mmol/L (98-107); Osmolality Calculated 283 mOsm/kg (285-295); Sodium 136 mmol/L (136-145)
[2024-08-18 07:21] LABS: Anion Gap 15.6 (5-19); Aspartate Amino Transferase 17 U/L (0-32); Potassium 4.6 mmol/L (3.5-5.1)
[2024-08-18] MEDS: dextrose 5%-sod chloride 0.9% 1,000 ML 75 ML IV ×2 (07:53→21:20)
--- NOTE | 2024-08-18 09:33 | P.PN_ITS ---
Subjective 2 Subjective: No nausea NG tube put out 100 cc Passing some gas No bowel movements Pain under control Vitals/I&O/Wt Last Vital Signs Temp 98.3 F 08/18/24 07:40 Pulse 83 08/18/24 07:40 Resp 16 08/18/24 07:50 BP 136/66 08/18/24 07:40 Pulse Ox 99 08/18/24 07:40 O2 Del Method Nasal Cannula 08/18/24 07:40 O2 Flow Rate 2 08/18/24 08:00 08/17/24 08/18/24 08/18/24 22:59 06:59 14:59 Intake Total 1300 / 1300 1003.75 / 2303.75 902.292 / 902.292 Output Total 200 / 200 450 / 650 Balance 1100 / 1100 553.75 / 1653.75 902.292 / 902.292 Weight last 48 hrs Weight 190 lb 9.6 oz Weight 181 lb Weight 181 lb Physical Exam 2 Narrative: Chest: Unlabored breathing room air. No lymphadenopathy. Heart: Regular rate and rhythm. Abdomen: Soft, appropriately tender, mildly distended. No masses or lymphadenopathy. Dressings clean dry intact. Urinary Catheter Management: Montanez: Cath Placed During This Visit: yes Reason for Continuing Indwelling Catheter: Acute Urinary Retention or Obstruction Urinary Catheter Date of Insertion: 08/17/24 Urinary Catheter Time of Insertion: 14:57 Data 08/17/24 10:46 08/18/24 06:25 A&P Assessment and plan (1) Bowel obstruction: Plan 59-year-old female who presents with SBO and concerns for internal hernia and threatened bowel. POD 1 diagnostic laparoscopy, exploratory laparotomy and extensive lysis of adhesions. Will wait for return of bowel function, encourage patient to ambulate, correct electrolyte derangements, keep NG tube to low continuous suction for now. Attestations 2 Medical Necessity Statement*: N/A Coding Level of Care Code 71522 Diagnoses Bowel obstruction K56.609 Time Spent (min) 30
--- OUTSIDE RECORDS SUMMARY | 2024-08-18 10:21 | XMS_ITS ---
Author Name Unknown Organization [facility] Address [address] [place] [address] Support Name Relationship Address , Elena Kennedy Emergency Contact Unknow n Unavailable Anne Blair Guarantor Unknown Care Team Providers Care Portuguese Tutor Name Role Phone Nina VALE, Staci Primary Care Provider Lc Aguero Unavailable [phone] REASON FOR VISIT 3 mo RK Encounters Encounter Location Date Provider Diagnosis [facility] [place] [address] [place] [address] 08/15/2024 Lc Voss Plan Of Treatment No Information Progress Notes * Anne BLAIRDOB:[birth year] (59 yo F)Acc No.[id number]:08/15/2024 Progress Notes Patient:?Anne BLAIR Provider:?Lc Voss D.O. :1965???Age:59 Y???Sex:Female D ate:08/15/2024 Address:[address] [place] [address], [address] Pcp:Staci Wood MD Subjective: * Chief Complaints: * ???1. 3 mo RK. * Medical History:? Objective: * Vitals:? Assessment: Plan: * Treatment: Forms: * Billing Information: * Visit Code:? * Procedure Codes:? Care Plan Details* * Electronic signature of Lc Voss DO on 08/18/2024 at 10:21 AM STONE DRILLER HELPER Sign off status: Pending * Provider:?Lc Voss D.O. Date:?03/2024 Generated for Alisa king/Hannah/eTransmitting on:?08/18/2024 10:21 AM STONE DRILLER HELPER
--- OUTSIDE RECORDS SUMMARY | 2024-08-18 10:22 | XMS_ITS ---
Author Name Unknown Organization [facility] Address [address] [place] [address] Support Name Relationship Address , Elena Kennedy Emergency Contact Unknow n Unavailable Anne Payne Guarantor Unknown Care Team Providers Care Light Bulb Tester Name Role Phone Nina VALE, Staci Primary Care Provider Unavailabl e Migration, Provider Unavailable Unavailable REASON FOR VISIT EMR-Ra Encounters Encounter Location Date Provider Diagnosis Migrated_Facility 0 0 08/04/2024 Provider Migration Plan Of Treatment Medication Medication Name Sig Start Date Stop Date Notes Lyrica 100 MG 1 Tablet Every 12 ho urs PRN Do not exceed 2 tabs/day Oral 02/22/2024 05/22/2024 Progress Notes * Anne PAYNEDOB:[birth year] (59 yo F)Acc No.[id number]:08/04/2024 Patient:?Anne PAYNE :1965???Age:59 Y???Sex:Female Address:[address] [place] [address], [address], [place], [address] * Refills? Stop Lyrica Capsule, 100 MG, Oral, 1 Tablet Every 12 hours PRN Do not exceed 2 tabs/day Subjective: * Chief Complaints: * ???[facility] * Medical History:? * Surgical History:? * Hospitalization/Major Diagno stic Procedure:? * Medications:? Objective: * Vitals:? * Physical Examination:? Assessment: Plan: * Treatment: * Procedure Codes:? * * Date:?
--- OUTSIDE RECORDS SUMMARY | 2024-08-18 10:22 | XMS_ITS ---
Author Name Unknown Organization Unknown [facility] No information ASSESSMENT No information CHIEF COMPLAINT No information Vital Signs Bpsitting Date Temperature Weight Height Spo2 Respiration Bmi Ti merecorded Pulse 130/70 024 00:00:0 0 98.2 188,0.00 5,2 97 20 34.4 00:00 76 140/80 024 00:00:0 0 97 184,0.00 5,1 97 20 34.8 00:00 78 150/84 024 00:00:0 0 97.8 182,16.0 0 5,1 98 16 34.6 00:00 66 130/80 024 00:00:0 0 98 181,16.0 0 5,2 98 20 33.3 00:00 78 140/70 024 00:00:0 0 97.9 185,0.00 5,2 97 20 33.8 00:00 76 140/80 024 00:00:0 0 97.7 184,8.00 5,1 97 20 34.9 00:00 80 168/90 023 00:00:0 0 98.1 172,16.0 0 5,2 98 null 31.6 00:00 86 130/70 024 00:00:0 0 98 161,16.0 0 5,2 97 20 29.6 00:00 78 140/80 024 00:00:0 0 97 176,0.00 5,1 97 20 33.3 00:00 76 126/70 024 00:00:0 0 97.9 175,9.60 5,1 99 20 33.2 00:00 78 130/74 024 00:00:0 0 98.4 176,9.60 5,1 99 14 33.4 00:00 84 OBJECTIVE DATA No information PHYSICAL EXAMINATION No information TREATMENT PLAN No information PROBLEMS No information RESULTS No information REVIEW OF SYSTEMS No information SUBJECTIVE DATA No information MEDICATIONS No information
--- OUTSIDE RECORDS SUMMARY | 2024-08-18 10:22 | XMS_ITS ---
Author Name Unknown Organization [facility] Address [address] [place] [address] Support Name Relationship Address , Elena Marcia Emergency Contact Unknow n Unavailable Anne Payne Guarantor Unknown Care Team Providers Care Order Desk Caller Name Role Phone Nina VALE, Staci Primary Care Provider Unavailabl e Migration, Provider Unavailable Unavailable Allergies Allergen (clinical drug ingredient) Drug/Non Drug Allergy documented on EMR Reaction Allergy Type Onset Date Status Risperdal 4 mg table t (uncoded) Unknown Allergy Active Substance with sulfonamide structure and antibacterial mechanism of action (substance) SULFA (SULFONAMIDE ANTIBIOTICS) (uncoded) Unknown Allergy Active tramadol Tramadol Unknown Drug Allergy Active REASON FOR VISIT EMR-Ra Medications Medication SIG (Take, Route, Frequency, Duration) Notes Start Date End Date Status dilTIAZem HCl *Pick strength-f orm from Medispan for eRX* Active Carvedilol *Pick strength-f orm from Medispan for eRX* Active Estradiol *Pick strength-f orm from Medispan for eRX* Active cloNIDine *Pick strength-f orm from Medispan for eRX* Active Fish Oil *Pick strength-f orm from Medispan for eRX* Active trazodone *Reorder from Al dispan for eRx and Interaction Alerts* Active Ondansetron *Pick strength-f orm from Medispan for eRX* Active Furosemide *Pick strength-f orm from Medispan for eRX* Active pantoprazole *Reorder from Al dispan for eRx and Interaction Alerts* Active Meloxicam *Pick strength-f orm from Medispan for eRX* Active Encounters Encounter Location Date Provider Diagnosis Migrated_Facility 0 0 08/05/2024 Provider Migration Plan Of Treatment No Information Progress Notes * JOHNNIEHannahthompsonDOB:[birth year] (59 yo F)Acc No.[id number]:08/05/2024 Patient:Anne FATIMA :1965???Age:59 Y???Sex:Female Address:[address] [place] [address], [id number] Subjective: * Chief Complaints: * ???EMR-Ra * Medical History:? * Surgical History:?Breast rec onstruction Double Mastectomy * Hospitalization/Major Diagno stic Procedure:? * Family History:?Migrated Fam paramjit History: : Cancer, c hronic pain, D iabetes, f ibromyalgia, H eart disease, p sychiatric problems, v ascular disease.? * Social History:?Migrated Social History:?Migrated Social History: Alcoholic beverages? - Yes, A pplying for disability? - No, A re you or is there a chance you could be - No, C urrently on disability? - Yes, D rug or substance abuse? 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 - No, M arital Status - , N onprescription drug use? - No, P articipation in detoxification or rehabilitation - No, S moking - No, S moking status (MU) - Unknown if ever smoked, W orking currently? - No. * Medications:?TakingcloNIDine , Notes to Pharmacist: *Pick strength-form from Medispan for eRX*Furosemide , Notes to Pharmacist: *Pick strength-form from Medispan for eRX*trazodone , Notes to Pharmacist: *Reorder from Medispan for eRx and Interaction Alerts*Meloxicam , Notes to Pharmacist: *Pick strength-form from Medispan for eRX*Estradiol , Notes to Pharmacist: *Pick strength-form from Medispan for eRX*Carvedilol , Notes to Pharmacist: *Pick strength-form from Medispan for eRX*dilTIAZem HCl , Notes to Pharmacist: *Pick strength-form from Medispan for eRX*Fish Oil , Notes to Pharmacist: *Pick strength-form from Medispan for eRX*pantoprazole , Notes to Pharmacist: *Reorder from Medispan for eRx and Interaction Alerts*Ondansetron , Notes to Pharmacist: *Pick strength-form from Medispan for eRX*Taking cloNIDine , Notes to Pharmacist: *Pick strength-form from Medispan for eRX*Taking Furosemide , Notes to Pharmacist: *Pick strength-form from Medispan for eRX*Taking trazodone , Notes to Pharmacist: *Reorder from Medispan for eRx and Interaction Alerts*Taking Meloxicam , Notes to Pharmacist: *Pick strength-form from Medispan for eRX*Taking Estradiol , Notes to Pharmacist: *Pick strength-form from Medispan for eRX*Taking Carvedilol , Notes to Pharmacist: *Pick strength-form from Medispan for eRX*Taking dilTIAZem HCl , Notes to Pharmacist: *Pick strength-form from Medispan for eRX*Taking Fish Oil , Notes to Pharmacist: *Pick strength-form from Medispan for eRX*Taking pantoprazole , Notes to Pharmacist: *Reorder from Medispan for eRx and Interaction Alerts*Taking Ondansetron , Notes to Pharmacist: *Pick strength-form from Medispan for eRX* * Allergies:?Risperdal 4 mg ta blet: AllergySULFA (SULFONAMIDE ANTIBIOTICS): AllergyTramadol: Allergy Objective: * Vitals:? * Physical Examination:? Assessment: Plan: * Treatment: * Procedure Codes:? * * Date:?
--- OUTSIDE RECORDS SUMMARY | 2024-08-18 10:22 | XMS_ITS | Patient Health Record ---
Author Name Unknown Organization [facility] Address [address] [place] [address] Support Name Relationship Address , Elena Kennedy Emergency Contact Unknow n Unavailable Anne Payne Guarantor Unknown Care Team Providers Care Phone Counselor Name Role Phone Nina VALE, Staci Primary Care Provider Unavailabl e Migration, Provider Unavailable Unavailable Lc Voss Unavailable [phone] Madelyn Hood Unavailable [phone] Reason For Referral No Information Medications Medication SIG (Take, Route, Frequency, Duration) Notes Start Date End Date Status dilTIAZem HCl *Pick strength-f orm from Medispan for eRX* Active trazodone *Reorder from In dispan for eRx and Interaction Alerts* Active Ondansetron *[facility]* Active Carvedilol *[facility]* Active Furosemide *Pick strength-f orm from Medispan for eRX* Active pantoprazole *Reorder from In dispan for eRx and Interaction Alerts* Active Estradiol *[facility]f [facility] from [facility]* Active cloNIDine *[facility]f [facility] from [facility]* Active Meloxicam *Pick strength-f orm from Medispan for eRX* Active Fish Oil *[facility]f [facility]m from [facility]* Active Vital Signs Height-cm 154.94 cm 02/22/2024 Weight-kg 84.09 kg 02/22/2024 Height 61.00 in 02/22/2024 Weight 185.00 lbs 02/22/2024 BMI 35 kg/m2 02/22/2024 Encounters Encounter Location Date Provider Diagnosis Migrated_Facility 0 0 09/07/2023 Provider Migration Chronic pain syndrome G89.4 ; Other intervertebral disc degeneration, lumbar region M51.36 ; Radiculopathy, lumbosacral region M54.17 ; Postlaminectomy syndrome, not elsewhere classified M96.1 ; Unspecified abnormalities of gait and mobility R26.9 ; Other terminal operator (current) drug therapy Z79.899 and Other specified postprocedural states Z98.890 Migrated_Facility 0 0 12/01/2023 Provider Migration Chronic pain syndrome G89.4 ; Other intervertebral disc degeneration, lumbar region M51.36 ; Radiculopathy, lumbosacral region M54.17 ; Postlaminectomy syndrome, not elsewhere classified M96.1 ; Unspecified abnormalities of gait and mobility R26.9 ; Other nursing home (current) drug therapy Z79.899 and Other specified postprocedural states Z98.890 Migrated_Facility 0 0 02/22/2024 Provider Migration Chronic pain syndrome G89.4 ; Other intervertebral disc degeneration, lumbar region M51.36 ; Radiculopathy, lumbosacral region M54.17 ; Postlaminectomy syndrome, not elsewhere classified M96.1 ; Unspecified abnormalities of gait and mobility R26.9 ; Other nursing home (current) drug therapy Z79.899 and Other specified postprocedural states Z98.890 [facility] [place] [address] [place] [phone] 05/17/2024 Madelyn Hood [facility] [place] [address] [place] [address] 08/15/2024 Lc Voss Migrated_Facility 0 0 08/04/2024 Provider Migration Migrated_Facility 0 0 08/05/2024 Provider Migration Assessments Encounter Date Diagnosis (ICD Code) Assessment Notes Treat ment Notes Treatment Clinical Notes 09/07/2023 Chronic pain syndrom e (ICD-10 - G89.4) 09/07/2023 Other intervertebral disc degeneration, lumbar region (ICD-10 - M51.36) 09/07/2023 Radiculopathy, lumbosacral region (ICD-10 - M54.17) 09/07/2023 Postlaminectomy syndrome, not elsewhere classified (ICD-10 - M96.1) 09/07/2023 Unspecified abnormalities of gait and mobility (ICD-10 - R26.9) 09/07/2023 Other nursing home (current) drug therapy (ICD-10 - Z79.899) 09/07/2023 Other specified postprocedural states (ICD-10 - Z98.890) 12/01/2023 Chronic pain syndrom e (ICD-10 - G89.4) 12/01/2023 Other intervertebral disc degeneration, lumbar region (ICD-10 - M51.36) 12/01/2023 Radiculopathy, lumbosacral region (ICD-10 - M54.17) 12/01/2023 Postlaminectomy syndrome, not elsewhere classified (ICD-10 - M96.1) 12/01/2023 Unspecified abnormalities of gait and mobility (ICD-10 - R26.9) 12/01/2023 Other terminal operator (current) drug therapy (ICD-10 - Z79.899) 12/01/2023 Other specified postprocedural states (ICD-10 - Z98.890) 02/22/2024 Chronic pain syndrom e (ICD-10 - G89.4) 02/22/2024 Other intervertebral disc degeneration, lumbar region (ICD-10 - M51.36) 02/22/2024 Radiculopathy, lumbosacral region (ICD-10 - M54.17) 02/22/2024 Postlaminectomy syndrome, not elsewhere classified (ICD-10 - M96.1) 02/22/2024 Unspecified abnormalities of gait and mobility (ICD-10 - R26.9) 02/22/2024 Other nursing home (current) drug therapy (ICD-10 - Z79.899) 02/22/2024 Other specified postprocedural states (ICD-10 - Z98.890) Plan Of Treatment No Information Medical (General) History Surgical History Surgery Date(Month/Year) Double Mastectomy Breast reconstruction
[2024-08-18] MEDS: pantoprazole 40 mg SDV IVP (12:20)
--- NOTE | 2024-08-18 12:56 | P.PN_ITS ---
Subjective 2 Subjective: Seen this morning. NG tube in place. Does complain of mild pain in the abdomen says she did walk this morning however has had worsening pain since she walked. Did pass very little amount of gas this morning. Vitals/I&O/Wt Last Vital Signs Temp 97.8 F 08/18/24 10:03 Pulse 72 08/18/24 10:03 Resp 18 08/18/24 10:03 BP 107/58 08/18/24 10:03 Pulse Ox 97 08/18/24 10:03 O2 Del Method Room Air 08/18/24 10:03 O2 Flow Rate 2 08/18/24 08:00 08/17/24 08/18/24 08/18/24 22:59 06:59 14:59 Intake Total 1300 / 1300 1003.75 / 2303.75 902.292 / 902.292 Output Total 200 / 200 450 / 650 Balance 1100 / 1100 553.75 / 1653.75 902.292 / 902.292 Weight last 48 hrs Weight 86.455 kg Weight 82.1 kg Weight 82.1 kg Physical Exam 2 Narrative: Patient is postop Awake and alert GCS 15 Nonfocal neuroexam Hemodynamically stable NG tube in place Currently on 2 L Hemodynamically stable Abdomen appropriately tender to palpation, no guarding., No bowel sounds auscultated at this time. Urinary Catheter Management: Montanez: Cath Placed During This Visit: yes Reason for Continuing Indwelling Catheter: Acute Urinary Retention or Obstruction Urinary Catheter Date of Insertion: 08/17/24 Urinary Catheter Time of Insertion: 14:57 Data 08/17/24 10:46 08/18/24 06:25 A&P Assessment and plan (1) Benign hypertension: (2) Prediabetes: (3) Small bowel obstruction: (4) Ductal carcinoma in situ (DCIS) of left breast: (5) History of malignant melanoma: (6) S/P exploratory laparotomy: (7) Bowel obstruction: Plan Small bowel obstruction status post exploratory laparotomy Status post adhesiolysis Discontinue vancomycin continue Zosyn for now Continue IV fluids Opiate regimen, Monitor bowel function We will keep her on D5 normal saline DVT prophylaxis heparin Full code N.p.o. 08/18/2024 -Continue on Zosyn at this time Continue IV fluids General Surgery following. Hold home trazodone topiramate sumatriptan, sertraline quetiapine, pregabalin. ? Will use metoprolol 5 every 4 hours as needed. Hold carvedilol Patient has an NG in place. Once cleared from surgery standpoint to resume a diet we will start her home medications. Pain management Attestations 2 Medical Necessity Statement*: More than 2 midnights anticipated Diagnoses Benign hypertension I10 Prediabetes R73.03 Small bowel obstruction K56.609 Ductal carcinoma in situ (DCIS) of left breast D05.12 History of malignant melanoma Z85.820 S/P exploratory laparotomy Z98.890 Bowel obstruction K56.609
[2024-08-18 13:23] LABS: Glucose Point of Care 93 mg/dL (70-110)
[2024-08-18 13:32] LABS: Procalcitonin 0.11 ng/mL (0-0.5)
[2024-08-18 18:39] LABS: Glucose Point of Care 101 mg/dL (70-110)
[2024-08-18] MEDS: acetaminophen 500 mg Tablet PO (19:58)
[2024-08-18 22:38] LABS: Basophils % 0.6 %; Eosinophils # 0.1 10^3/uL (0.0-0.8); Eosinophils % 1.2 %; Lymphocytes # 1.5 10^3/uL (0.8-4.8); Lymphocytes % 22.5 %; Mean Corpuscular HGB Conc 35.6 g/dL (30-55); Mean Corpuscular Hemoglobin 29.4 pg (27-33); Mean Corpuscular Volume 82.7 fl (85-98); Mean Platelet Volume 11.8 fL (7.4-10.4); Monocytes # 0.4 10^3/uL (0.2-0.9); Monocytes % 5.8 %; Neutrophils # 4.47 10^3/uL (1.8-7.7); Neutrophils % 68.4 %; Nucleated Red Blood Cells % 0 %; Platelet Count 203 10^3/cmm (157-399); Red Blood Count 4.11 10^6/uL (3.85-5.65); Red Cell Distribution Width 14.7 % (12.1-15.1); White Blood Count 6.54 10^3/uL (3.29-11.43)
[2024-08-18 22:49] LABS: Slide Review Slide Review Perform
--- NOTE | 2024-08-18 23:12 | XRR_ITS ---
PROCEDURE INFORMATION: Exam: XR Chest Exam date and time: 08/18/2024 11:19 PM Age: 59 years old Clinical indication: Device placement; Ng tube; Patient HX: Check for ng placement; Additional info: Check ng placement TECHNIQUE: Imaging protocol: Radiologic exam of the chest. Views: 1 view. COMPARISON: CR XR chest 1V portable [id number] 05/29/2024 2:55 PM FINDINGS: Tubes, catheters and devices: Enteric tube tip below diaphragm with the gastric bubble. Lungs: Patchy bilateral airspace infiltrates. Pleural spaces: Unremarkable. No pleural effusion. No pneumothorax. Heart/Mediastinum: Cardiomegaly. Bones/joints: Unremarkable. XR/XR chest 1V portable [id number] IMPRESSION: 1. Enteric tube tip below diaphragm with the gastric bubble. 2. Patchy bilateral airspace infiltrates. 3. Cardiomegaly.
[2024-08-19 01:00] LABS: Glucose Point of Care 102 mg/dL (70-110)
[2024-08-19 01:35] VITALS: RESP 16
[2024-08-19] MEDS: morphine 4 mg/mL SDV 1 mL 2 MG IVP (01:35)
[2024-08-19 01:38] LABS: Basophils % 0.3 %; Eosinophils # 0.1 10^3/uL (0.0-0.8); Eosinophils % 1.2 %; Hematocrit 34.6 % (36-47); Lymphocytes # 1.5 10^3/uL (0.8-4.8); Lymphocytes % 22.6 %; Mean Corpuscular HGB Conc 32.1 g/dL (30-55); Mean Corpuscular Hemoglobin 27.5 pg (27-33); Mean Corpuscular Volume 85.6 fl (85-98); Mean Platelet Volume 11.8 fL (7.4-10.4); Monocytes # 0.5 10^3/uL (0.2-0.9); Monocytes % 6.8 %; Neutrophils # 4.68 10^3/uL (1.8-7.7); Nucleated Red Blood Cells % 0 %; Platelet Count 150 10^3/cmm (157-399); Red Blood Count 4.04 10^6/uL (3.85-5.65); Red Cell Distribution Width 14.3 % (12.1-15.1); White Blood Count 6.78 10^3/uL (3.29-11.43)
[2024-08-19 02:02] LABS: Alanine Aminotransferase 16 U/L (0-33); Albumin Level 3.6 g/dL (3.5-5.2); Alkaline Phosphatase 65 U/L (35-105); Anion Gap 11.7 (5-19); Aspartate Amino Transferase 20 U/L (0-32); Blood Urea Nitrogen 9 mg/dL (6-20); Calcium 8.1 mg/dL (8.5-10.5); Carbon Dioxide 25 mmol/L (22-29); Chloride 110 mmol/L (98-107); Creatinine Clr Calc Pharmacy 76.5514; Globulin 2.2 g/dL (1.3-4.6); Glomerular Filtration Rate 73.7 mL/min (90-130); Glucose 107 mg/dL (65-115); Osmolality Calculated 295 mOsm/kg (285-295); Phosphorus 2.1 mg/dL (2.5-4.5); Potassium 3.7 mmol/L (3.5-5.1); Sodium 143 mmol/L (136-145); Total Bilirubin 0.5 mg/dL (0.15-1.2); Total Protein 5.8 g/dL (6.6-8.7)
[2024-08-19 03:58] VITALS: BP 146/68; PULSE 100; RESP 14; TEMP 36.9; O2SAT 94
[2024-08-19] MEDS: piperacillin-tazobactam 3.375 GM in sodium chloride 0.9% (plus) 50 ML IV (05:27)
[2024-08-19 06:22] LABS: Glucose Point of Care 112 mg/dL (70-110)
[2024-08-19 08:00] VITALS: BP 161/88; PULSE 95; RESP 16; TEMP 37.4; O2SAT 94
--- NOTE | 2024-08-19 11:18 | P.PN_ITS ---
Subjective 2 Subjective: Passing gas consistently Low NG tube output Nondistended abdomen soft Vitals/I&O/Wt Last Vital Signs Temp 99.4 F 08/19/24 08:00 Pulse 95 08/19/24 08:00 Resp 16 08/19/24 08:00 BP 161/88 08/19/24 08:00 Pulse Ox 94 08/19/24 08:00 O2 Del Method Room Air 08/19/24 08:00 O2 Flow Rate 2 08/18/24 08:00 08/18/24 08/19/24 08/19/24 22:59 06:59 14:59 Intake Total 1150.625 / 2052.917 21.875 / 2074.792 771.25 / 771.25 Output Total 350 / 350 430 / 780 150 / 150 Balance 800.625 / 1702.917 -408.125 / 1294.792 621.25 / 621.25 Weight last 48 hrs Weight 186 lb 12.8 oz Weight 190 lb 9.6 oz Weight 181 lb Physical Exam 2 Narrative: Chest: Unlabored breathing room air. No lymphadenopathy. Heart: Regular rate and rhythm. Abdomen: Soft, appropriately tender, nondistended. No masses or lymphadenopathy. Incisions clean dry intact. Urinary Catheter Management: Montanez: Cath Placed During This Visit: yes, but has since been removed by the nurse Reason for Continuing Indwelling Catheter: Decision to DC Catheter Urinary Catheter Date of Insertion: 08/17/24 Urinary Catheter Time of Insertion: 14:57 Date Urinary Catheter Removed: 08/19/24 Time Urinary Catheter Discontinued: 07:30 Data 08/19/24 01:30 08/19/24 01:30 A&P Assessment and plan (1) Bowel obstruction: Plan 59-year-old female who presented with an SBO and concerns for threatened bowel. Patient is having bowel function. Abdomen is nondistended. Remove NG tube, okay for regular diet, okay for discharge this afternoon if still doing well. Patient lives close of hospital and I have explained things to look out for in order to come back to the emergency department. Attestations 2 Medical Necessity Statement*: N/A Coding Level of Care Code 28917 Diagnoses Bowel obstruction K56.609 Time Spent (min) 30
[2024-08-19 11:25] VITALS: BP 111/83; PULSE 98; TEMP 37.7; O2SAT 97
--- NOTE | 2024-08-19 12:27 | P.DS_ITS ---
Discharge Providers Date of Admission: 08/17/24 16:58 Date of Discharge: August 19, 2024 Attending Provider at Admission: Rj Elizabeth MD Attending Provider at Discharge: Stephanie Clifton MD Primary Care Provider: Roseanne Marin Diagnoses at Discharge Discharge Diagnosis (1) Bowel obstruction: Status: Acute Reason for Visit Reason for Visit: dirrhea, vommiting, abd pain Hospital Course Hospital Course Patient was admitted for a abdominal pain and nausea vomiting diarrhea. CT abdomen pelvis in ER showed bowel obstruction with possible vascular compromise. Patient was taken to the OR immediately from the ER. And underwent surgery. Patient had dense adhesions in the midline transition point in left upper quadrant. Bowel was viable in its entirety. Adhesions were lysed. Postop she had an NG tube which was later removed. She is passing gas. General surgery has started her on a regular diet. If she tolerates by this afternoon she will be discharged home to follow-up with general surgery as an outpatient. Physical Exam Narrative: Patient is postop Awake and alert GCS 15 Nonfocal neuroexam Hemodynamically stable NG tube has been removed, currently on room air. Hemodynamically stable Abdomen soft nontender, sounds present. Mildly tender at incision site which is appropriate status postop. Urinary Catheter Management: Montanez: Cath Placed During This Visit: yes, but has since been removed by the nurse Reason for Continuing Indwelling Catheter: Decision to DC Catheter Urinary Catheter Date of Insertion: 08/17/24 Urinary Catheter Time of Insertion: 14:57 Date Urinary Catheter Removed: 08/19/24 Time Urinary Catheter Discontinued: 07:30 Discharge Data Studies Completed and Pending Completed Studies During Hospitalization Category Date Time Status CT abdomen pelvis w con* [id number] Stat Cat Scan 08/17/24 10:39 Completed XR abdomen 1V* [id number] Stat Exams 08/17/24 13:33 Completed XR chest 1V portable [id number] Routine Exams 08/18/24 23:12 Completed Radiology Impressions Abdomen/Pelvis CT 08/17/24 10:39 IMPRESSION: 1. Fluid distended loops of mid and distal small bowel extending to the ileocecal valve with marked diffuse hyperemia and wall thickening with associated submucosal fat deposition. This can be seen with inflammatory bowel disease. Recommend correlation for superimposed acute infectious or inflammatory enteritis. 2. Suspected area of transition in the mid abdomen with a small amount of associated fluid may be due to adhesions or internal hernia. Findings suspicious for developing partial small bowel obstruction. Area of transition noted on the bookmarked images 3. Mucosal enhancement involving the sigmoid colon compatible with mild distal colitis. 4. Air-fluid level in the stomach. 5. Cholecystectomy clips. 6. Small amount of free fluid in the pelvis. Abdomen X-Ray 08/17/24 13:33 IMPRESSION: Nasogastric tube placement with the tip in the junction of the fundus and body of the stomach. Stomach significantly distended with fluid and air. Chest X-Ray 08/18/24 23:12 IMPRESSION: 1. Enteric tube tip below diaphragm with the gastric bubble. 2. Patchy bilateral airspace infiltrates. 3. Cardiomegaly. Laboratory Results WBC 6.78 10^3/uL (3.29-11.43) 08/19/24 01:30 Corrected WBC Cancelled 08/18/24 06:25 RBC 4.04 10^6/uL (3.85-5.65) 08/19/24 01:30 Hgb 11.10 g/dL (11.27-16.99) L 08/19/24 01:30 Hct 34.6 % (36-47) L 08/19/24 01:30 MCV 85.6 fl (85-98) 08/19/24 01:30 MCH 27.5 pg (27-33) 08/19/24 01:30 MCHC 32.1 g/dL (30-55) D 08/19/24 01:30 RDW 14.3 % (12.1-15.1) 08/19/24 01:30 Plt Count 150 10^3/cmm (157-399) L 08/19/24 01:30 MPV 11.8 fL (7.4-10.4) H 08/19/24 01:30 Gran % Cancelled 08/18/24 06:25 Neut % (Auto) 69.0 % 08/19/24 01:30 Lymph % (Auto) 22.6 % 08/19/24 01:30 [place] % (Auto) 6.8 % 08/19/24 01:30 Eos % (Auto) 1.2 % 08/19/24 01:30 Baso % (Auto) 0.3 % 08/19/24 01:30 Neut # (Auto) 4.68 10^3/uL (1.8-7.7) 08/19/24 01:30 Lymph # (Auto) 1.5 10^3/uL (0.8-4.8) 08/19/24 01:30 Marion # (Auto) 0.5 10^3/uL (0.2-0.9) 08/19/24 01:30 Eos # (Auto) 0.1 10^3/uL (0.0-0.8) 08/19/24 01:30 Baso # (Auto) 0.0 10^3/uL (0.0-0.1) 08/19/24 01:30 Absolute Gran (auto) Cancelled 08/18/24 06:25 Nucleated RBC % (auto) 0 % 08/19/24 01:30 Nucleated RBCs # 0.0 /100WBC 08/19/24 01:30 PT 12.80 SECONDS (12.1-14.9) 08/18/24 05:00 INR 0.93 (0.8-1.2) 08/18/24 05:00 Sodium 143 mmol/L (136-145) 08/19/24 01:30 Potassium 3.7 mmol/L (3.5-5.1) 08/19/24 01:30 Chloride 110 mmol/L (98-107) H 08/19/24 01:30 Carbon Dioxide 25 mmol/L (22-29) 08/19/24 01:30 Anion Gap 11.7 (5-19) 08/19/24 01:30 BUN 9 mg/dL (6-20) 08/19/24 01:30 Creatinine 0.8 mg/dL (0.5-0.9) 08/19/24 01:30 GFR Calculation 73.7 mL/min (90-130) L 08/19/24 01:30 Glucose 107 mg/dL (65-115) 08/19/24 01:30 POC Glucose 112 mg/dL (70-110) H 08/19/24 06:19 Calculated Osmolality 295 mOsm/kg (285-295) 08/19/24 01:30 Lactic Acid 0.8 mmol/L (0.5-2.2) 08/17/24 10:46 Calcium 8.1 mg/dL (8.5-10.5) L 08/19/24 01:30 Phosphorus 2.1 mg/dL (2.5-4.5) L 08/19/24 01:30 Magnesium 2.0 mg/dL (1.7-2.3) 08/19/24 01:30 Total Bilirubin 0.5 mg/dL (0.15-1.2) 08/19/24 01:30 AST 20 U/L (0-32) 08/19/24 01:30 ALT 16 U/L (0-33) 08/19/24 01:30 Alkaline Phosphatase 65 U/L (35-105) 08/19/24 01:30 Total Protein 5.8 g/dL (6.6-8.7) L 08/19/24 01:30 Albumin 3.6 g/dL (3.5-5.2) 08/19/24 01:30 Globulin 2.2 g/dL (1.3-4.6) 08/19/24 01:30 Lipase 23 U/L (13-60) 08/17/24 10:46 Procalcitonin 0.11 ng/mL (0-0.5) 08/18/24 06:25 Urine Color Yellow (Yellow) 08/17/24 12:25 Urine Appearance Clear (CLEAR) 08/17/24 12:25 Urine pH 5 (5-7) 08/17/24 12:25 Ur Specific [place] 1.010 (1.005-1.030) 08/17/24 12:25 Urine Protein 1+ (Negative) H 08/17/24 12:25 Urine Glucose (UA) Norm (Normal) 08/17/24 12:25 Urine Ketones Negative (Negative) 08/17/24 12:25 Urine Blood Neg (Negative) 08/17/24 12:25 Urine Nitrate Negative (Negative) 08/17/24 12:25 Urine Bilirubin Neg (Negative) 08/17/24 12:25 Urine Urobilinogen Norm mg/dL (Negative) 08/17/24 12:25 Ur Leukocyte Esterase Trace (Negative) H 08/17/24 12:25 Urine RBC 0-2 /hpf (0-2) 08/17/24 12:25 Urine WBC 6-10 /hpf (0-5) 08/17/24 12:25 Ur Squamous Epith Cells 6-10 /hpf (0-5) 08/17/24 12:25 Amorphous Sediment Not Reportable 08/17/24 12:25 Urine Bacteria Trace /hpf (NONE) 08/17/24 12:25 Hyaline Casts 0.40 /lpf 08/17/24 12:25 Blood Type B Positive 08/17/24 14:43 Rho(D) Type Rh positive 08/17/24 14:43 Antibody Screen Negative 08/17/24 14:43 Vitals Last Vital Signs Temp 99.8 F H 08/19/24 11:25 Pulse 98 08/19/24 11:25 Resp 16 08/19/24 08:00 BP 111/83 08/19/24 11:25 Pulse Ox 97 08/19/24 11:25 O2 Del Method Room Air 08/19/24 08:00 O2 Flow Rate 2 08/18/24 08:00 Discharge Plan Discharge Patient Disposition: Home Condition: Stable Prescriptions: New oxycodone 5 mg tablet 5 mg PO Q6H PRN (Reason: pain) 5 Days Qty: 10 0RF Continued topiramate [Topamax] 100 mg tablet 100 mg PO DAILY Qty: 30 3RF Aimovig Autoinjector 140 mg/mL auto-injector See Rx Instructions .ROUTE .COMPLEX Qty: 1 11RF Dose Instruction: INJECT 1 PEN SUB-Q ONCE MONTHLY FOR MIGRAINES Rx Instructions: INJECT 1 PEN SUB-Q ONCE MONTHLY FOR MIGRAINES sumatriptan succinate 100 mg tablet See Rx Instructions .Route .COMPLEX Qty: 12 11RF Rx Instructions: take 1 may repeat in an hour prn migraine quetiapine [Seroquel] 50 mg tablet 50 mg PO BEDTIME Qty: 30 6RF quetiapine [Seroquel] 25 mg tablet 25 mg PO BID PRN (Reason: anxiety/psychosis) Qty: 60 3RF sertraline [Zoloft] 50 mg tablet 50 mg PO QAM Qty: 30 4RF trazodone 100 mg tablet 200 mg PO BEDTIME Qty: 30 4RF Rx Instructions: Take two tablets at bedtime carvedilol 25 mg tablet 25 mg PO BID Qty: 180 3RF pantoprazole 40 mg tablet,delayed release (DR/EC) 40 mg PO QAM promethazine 25 mg tablet 25 mg PO Q6H PRN (Reason: nausea and vomiting) Qty: 20 0RF potassium chloride 10 mEq tablet extended release 10 meq PO DAILY PRN (Reason: Edema) furosemide 20 mg tablet 20 mg PO DAILY PRN (Reason: Edema) Ozempic 1 mg/dose (4 mg/3 mL) pen injector 25 mg SUBCUT Q7D acyclovir 800 mg tablet 800 mg PO TID PRN (Reason: BREAKOUTS) pregabalin 100 mg capsule 100 mg PO Q12H MDD 2 caps ondansetron 4 mg tablet,disintegrating 4 mg PO Q6H PRN (Reason: nausea and vomiting) Qty: 14 0RF Referrals: Rj Elizabeth MD [Physician] - 1 week Roseanne Marin PA [Primary Care Provider] - 4-7 days Discharge Diet: Cardiac Discharge Activity: Increase activity as tolerated Patient Instructions: Acute Wound Care (DC), Opioid Safety, Post Anesthesia Care Discharge Attestations Time Spent in Discharge Care*: less than 30 min Status at Discharge: Cognitive status at discharge: cognitively intact , Quality Metrics Clinical Quality Measures [ No reported AMI, CVA or VTE this stay] Coding Level of Care Code Acute Code for Chg Fwd Diagnoses Bowel obstruction K56.609
[2024-08-19 14:00] LABS: Glucose Point of Care 116 mg/dL (70-110)
--- NOTE | 2024-08-19 14:51 | PC.NURSE ---
Discharge Note Patient discharged to home via private vehicle accompanied by friend. Discharge instructions reviewed with patient and/or business process representative. Mobile pharmacy medications and/or prescriptions provided. Belongings/home medications returned.
[2024-08-19 14:52] VITALS: BP 111/83; PULSE 98; RESP 17; TEMP 37.7; O2SAT 97
== END 2024-08-19 14:54 | disposition home or self-care (01) | DRG 337 ==
LOC: ER 13:46 → OR 14:03 → MEDSURG 08-18 08:55
PROVIDERS: Admitting Provider Student in an Organized Health Care Education/Training Program; Emergency Provider Family Medicine; PCP Physician Assistant; Visit Provider Internal Medicine
PROC: 0DN84ZZ Release Small Intestine, Percutaneous Endoscopic Approach (ICD-10-PCS; CPT 49000; principal; 2024-08-17 14:00)
PROC: 0DN84ZZ Release Small Intestine, Percutaneous Endoscopic Approach (ICD-10-PCS; CPT 44120; 2024-08-17 14:00)
PROC: 0DN84ZZ Release Small Intestine, Percutaneous Endoscopic Approach (ICD-10-PCS; CPT 49320; 2024-08-17 14:00)
PROC: 0DN84ZZ Release Small Intestine, Percutaneous Endoscopic Approach (ICD-10-PCS; 2024-08-17 14:00)
DX: K56.50 Intestinal adhesions [bands], unspecified as to partial versus complete obstruction (principal); F41.9 Anxiety disorder, unspecified; F60.3 Borderline personality disorder; F32.9 Major depressive disorder, single episode, unspecified; G43.909 Migraine, unspecified, not intractable, without status migrainosus; I10 Essential (primary) hypertension; R73.03 Prediabetes; Z86.0100 Personal history of colon polyps, unspecified; Z85.3 Personal history of malignant neoplasm of breast; Z85.820 Personal history of malignant melanoma of skin
CPT/HCPCS: 36415; 36416; 51702; 71045; 74018; 74177; 80053; 81001; 82962; 83605; 83690; 83735; 84100; 84145; 85025; 85610; 86850; 86900; 94664; 96361; 96374; 96375; 99285; J1100; J1171; J2060; J2250; J2270; J2405; J2470; J2543; J2704; J3010; J7030; J7042; P9045

== ENCOUNTER → 2024-08-30 09:07 | Outpatient (BNVA) | payer MEDICARE, MEDICAID, SELFPAY ==
[2024-07-05 16:24] VITALS: BP 145/82; BMI 33.1
== END ==
PROVIDERS: PCP Physician Assistant; Visit Provider Student in an Organized Health Care Education/Training Program
DX: K56.609 Unspecified intestinal obstruction, unspecified as to partial versus complete obstruction (principal)
CPT/HCPCS: 99024

== ENCOUNTER 2024-11-07 21:34 | Emergency (ER) | payer MEDICARE, MEDICAID, SELFPAY ==
[2024-07-05 16:24] VITALS: BP 145/82; BMI 33.1
[2024-11-07 21:38] VITALS: BP 114/74; PULSE 77; RESP 16; TEMP 36.7; O2SAT 98
[2024-11-07 23:16] LABS: Basophils % 0.3 %; Eosinophils # 0.2 10^3/uL (0.0-0.8); Eosinophils % 2.7 %; Hematocrit 37.2 % (36-47); Lymphocytes # 2.5 10^3/uL (0.8-4.8); Lymphocytes % 42.2 %; Mean Corpuscular Hemoglobin 26.8 pg (27-33); Mean Corpuscular Volume 83.8 fl (85-98); Mean Platelet Volume 11.4 fL (7.4-10.4); Monocytes # 0.4 10^3/uL (0.2-0.9); Monocytes % 7.1 %; Neutrophils # 2.79 10^3/uL (1.8-7.7); Neutrophils % 47.4 %; Nucleated Red Blood Cells % 0 %; Platelet Count 156 10^3/cmm (157-399); Red Blood Count 4.44 10^6/uL (3.85-5.65); Red Cell Distribution Width 13.7 % (12.1-15.1)
--- NOTE | 2024-11-07 23:22 | CTR_ITS ---
PROCEDURE INFORMATION: Exam: CT Abdomen And Pelvis With Contrast Exam date and time: 11/08/2024 12:51 AM Age: 59 years old Clinical indication: Abdominal pain; Periumbilical; Prior surgery; Surgery date: 6+ months; Surgery type: Gall bladder, hyster, bowel resection; Additional info: Rlq pain, sbo on 08/17 TECHNIQUE: Imaging protocol: Computed tomography of the abdomen and pelvis with contrast. Radiation optimization: All CT scans at this facility use at least one of these dose optimization techniques: automated exposure control; mA and/or kV adjustment per patient size (includes targeted exams where dose is matched to clinical indication); or iterative reconstruction. Contrast material: OMNI 350; Contrast volume: 100 ml; Contrast route: INTRAVENOUS (IV); COMPARISON: CT abdomen pelvis w con* [id number] 08/17/2024 11:57 AM RADIATION DOSE METRICS: Total DLP (mGy-cm): 805.93 FINDINGS: Lungs: Bilateral lower lobe atelectasis. Liver: Normal. No mass. Gallbladder and biliary ducts: There has been a cholecystectomy. Pancreas: Normal. No ductal dilation. Spleen: Normal. No splenomegaly. Adrenal glands: Normal. No mass. Kidneys and ureters: There is no evidence of hydronephrosis. Simple cyst in the interpolar region of the left kidney measuring 6 mm. Nonobstructing stone in the lower pole of the left kidney measuring 4 mm. Stomach and bowel: There is mild fatty infiltration of the wall of the terminal ileum, likely from prior enteritis. Appendix: No evidence of appendicitis. Intraperitoneal space: Unremarkable. No free air. No significant fluid collection. Vasculature: Calcified atheromas of the visualized arteries. Lymph nodes: Unremarkable. No enlarged lymph nodes. Urinary bladder: Unremarkable as visualized. Reproductive: There has been a hysterectomy. Bones/joints: Sclerosis in bilateral femoral heads, suggestive of osteonecrosis with no flattening of the femoral heads or hip joint space narrowing. The lumbar spine demonstrates mild degenerative changes at multiple levels. Soft tissues: Bilateral breast implants. Surgical changes of laparotomy. CT/CT abdomen pelvis w con* [id number] IMPRESSION: No acute intra-abdominal process. COMMENTS: Consistent with the [employer]'s Incidental Findings Committee white paper (J Am Giuliano Radiol 2018): Any incidental renal lesion less than 1 cm or classified as too small to characterize, or any incidental cystic renal lesion characterized as simple-appearing, is likely benign. No follow-up imaging is recommended for these lesions per consensus recommendations based on imaging criteria.
--- NOTE | 2024-11-07 23:23 | ED_ITS ---
Documented by User: BRI House 11/07/24 23:26 HPI - Abdominal Pain 2 General: Chief Complaint: Abdominal Pain Stated Complaint: post surg. pain odd pulling in lower right abd Time Seen by Provider: 11/07/24 23:10 Source: patient Mode of arrival: ambulatory Limitations: no limitations History of Present Illness: Patient is a 59-year-old female presenting to the emergency department complaining of right lower quadrant abdominal pain for the past week. On 08/17/2024, patient had ex lap procedure to repair SBO. She was subsequently seen at [facility] and was diagnosed with C. difficile infection and has been on vancomycin for the past few weeks. She notes sudden onset of right lower quadrant pain, just to the right of her surgical midline incision and that has been constant and radiates into her back. She has history of appendectomy. She has not been running fevers, states that she has had constant diarrhea since being diagnosed with C. difficile and has had 3 episodes a day. Denies any nausea or vomiting. Reports that the pain is somewhat mild, but she is voicing concern that she has another obstruction. No chest pain or shortness of breath. She had follow-up appointment at the end of August after her surgery and this appeared to be normal without complications. MD elicited complaint: abdominal pain Pertinent past history: other (Small bowel obstruction) Onset (ago): week(s) Pain Consistency: constant Location: RLQ Severity: mild Radiation: back Exacerbating factors: nothing Relieving factors: nothing Context: other (Surgery to correct SBO, C. difficile diagnosis) Associated Symptoms: Reports diarrhea; Denies bloating, chills, constipation, dysuria, fever(s), hematochezia, nausea and vomiting Related Data Home Medications Medication Instructions Recorded Confirmed acyclovir 800 mg tablet 800 mg PO TID PRN BREAKOUTS 09/02/22 09/11/24 pregabalin 100 mg capsule 100 mg PO Q12H 09/02/22 09/11/24 pantoprazole 40 mg tablet,delayed 40 mg PO QAM 06/14/23 09/11/24 release furosemide 20 mg tablet 20 mg PO DAILY PRN Edema 05/29/24 09/11/24 potassium chloride 10 mEq 10 meq PO DAILY PRN Edema 05/29/24 09/11/24 tablet,extended release Previous Rx's Medication Instructions Recorded ondansetron 4 mg disintegrating 4 mg PO Q6H PRN nausea and 10/04/23 tablet vomiting #14 tabs promethazine 25 mg tablet 25 mg PO Q6H PRN nausea and 01/16/24 vomiting #20 tabs carvedilol 25 mg tablet 25 mg PO BID #180 tabs 06/21/24 erenumab-aooe 140 mg/mL See Rx Instructions .Route 08/08/24 subcutaneous auto-injector .COMPLEX #1 mL (Aimovig Autoinjector) sumatriptan succinate 100 mg tablet See Rx Instructions .Route 08/08/24 .COMPLEX #12 tabs topiramate 100 mg tablet (Topamax) 100 mg PO DAILY #30 tabs 08/08/24 quetiapine 25 mg tablet (Seroquel) 25 mg PO BID PRN anxiety/psychosis 09/11/24 #60 tabs quetiapine 50 mg tablet (Seroquel) 50 mg PO BEDTIME #30 tabs 09/11/24 sertraline 50 mg tablet (Zoloft) 50 mg PO QAM #30 tabs 09/11/24 trazodone 100 mg tablet 200 mg (2 x 100 mg) PO BEDTIME 09/11/24 Sleep #30 tabs Allergies Allergy/AdvReac Type Severity Reaction Status Date / Time risperidone [From Risperdal] Allergy Severe ADR-Faintin Verified 09/11/24 12:43 g dexchlorpheniramine Allergy ADR-Faintin Verified 09/11/24 12:43 [From Rymed g (dexchlorpheniramine-PE)] phenylephrine Allergy ADR-Faintin Verified 09/11/24 12:43 [From Rymed g (dexchlorpheniramine-PE)] Sulfa (Sulfonamide Allergy ALGY-Hives Verified 09/11/24 12:43 Antibiotics) amlodipine AdvReac Mild Unknown Verified 09/11/24 12:43 morphine AdvReac Mild ADR-Headach Verified 09/11/24 12:43 e Review of Systems 2 General: Reports: 10 or more systems reviewed and unremarkable except in HPI and below Const: Denies: fever(s), chills, change in appetite, change in weight or diaphoresis ENMT: Denies: throat pain or hoarseness Card: Denies: chest pain, palpitations or lightheadedness Resp: Denies: dyspnea, productive cough or wheezing GI: Reports: abdominal pain and diarrhea; Denies: nausea, vomiting, constipation, bloating or hematochezia : Denies: flank pain, difficulty voiding, dysuria, urinary frequency or urinary urgency Musc: Denies: neck pain or back pain Skin/Breast: Denies: rash or new lesions Neuro: Denies: headache(s) or dizziness PFSH ED 2 PFSH: Medical History Borderline personality disorder Small bowel obstruction Acute cystitis without hematuria Partial small bowel obstruction Dehydration Hypertension Obesity (BMI 30-39.9) History of Holter monitoring 04/2023 Baseline rhythm is sinus rhythm. HR ranged from 56-135, avg 80 bpm, nnspecified patient symptom correlated with isolated PVC History of electroencephalogram 05/2023 IMPRESSION: This was a normal routine EEG, awake and drowsy and asleep, with no behavioral or electrographic epileptiform activity. A normal EEG does not exclude a diagnosis of epilepsy. DCIS (ductal carcinoma in situ) ER/CA negative, tamoxifen History of cardiac arrest Benign essential HTN Breast cancer Chronic migraine without aura, intractable, with status migrainosus Recurrent syncope History of colon polyps Psychiatric care Inappropriate sinus tachycardia Malignant hypertension History of malignant melanoma Fear of insects (Unknown) Specifically tics Major depressive disorder, recurrent, severe with psychotic symptoms [facility] managing Lumbar radiculitis Herpes genitalia Hot flashes Irritable bowel disease HTN (hypertension) with goal to be determined Surgical History History of appendectomy (01/2021) History of exploratory laparotomy (01/2021) with lysis of adhesions, performed due to SBO Hx of bilateral mastectomy History of colonoscopy Intra-abdominal adhesions (~10/2020) adhesiolysis / incidental appendectomy-- at same time as bowel obstruction H/O tubal ligation (~2008) Hx of abdominoplasty (~2009) History of augmentation of both breasts 2012 silicone implants, removed at time of mastectomies Hx of section (~2008) x 1 Hx of hernia repair (~2012) ventral (patient thinks mesh was used) Hx of hysterectomy (~2008) CHRISTINA-- ovaries spared. Hx of decompressive lumbar laminectomy ---2014 L5-S1 [facility] ,[place]. ---10/20/2020 Revision; Dr Dalia ALBERT Family History Mother Breast cancer dx age unknown Hypertension Grandmother Breast cancer Maternal--dx age 60's Hypertension Maternal and Paternal Sister No problems noted. Daughter Uterine cancer dx age 28 Father Diabetes Hypertension Stroke Grandfather Hypertension maternal and Paternal Denies family history of Colon cancer Ovarian cancer Social History Smoking and tobacco/nicotine status: never used tobacco/nicotine Alcohol intake: current Alcohol intake frequency: holidays/special occasions only Alcohol type: wine Substance/Drug Use: never Do you think of yourself as: Straight/Heterosexual Physical Exam 2 Const: COMMON NORMALS: no acute distress, average body habitus, patient oriented x3, no limitations, healthy appearing, alert and well nourished G ENERAL APPEARANCE: cooperative and comfortable ORIENTATION/CONSCIOUSNESS: Yes awake OTHER: Nontoxic-appearing HENMT: COMMON NORMALS: normocephalic, atraumatic, hearing grossly normal bilaterally, external ears normal, Normal external nose present, Normal nasal mucous membranes and turbinates present and moist oral mucous membranes HEAD & SCALP: normocephalic and atraumatic NOSE: Normal external nose present and Normal nasal mucous membranes and turbinates present EXTERNAL EAR: Yes external ears normal Eye: COMMON NORMALS: Equal, round and reactive pupils present, EOMs intact bilaterally, conjunctivae normal and normal visual escobar by confrontation C ONJUNCTIVA: Yes conjunctivae normal PUPIL: Yes Equal, round and reactive pupils present Neck/C-Spine: COMMON NORMALS: full ROM, supple, no meningeal signs and no JVD Resp: COMMON NORMALS: normal respiratory effort, No retractions, No use of accessory muscles and clear to auscultation bilaterally AUSCULTATION: clear to auscultation bilaterally, no crackles, no rales, no rhonchi and no wheezes Cardio: COMMON NORMALS: no JVD, regular rate, regular rhythm, S1 normal heart sound present, S2 normal heart sound present, No gallops present (Cardio), No clicks present (Cardio), No murmurs present (Cardio), No rub (Cardio) and Peripheral pulses 2+ throughout RATE: regular rate RHYTHM: regular rhythm HEART SOUNDS: S1 normal heart sound present and S2 normal heart sound present PERIPHERAL PULSES: Peripheral pulses 2+ throughout GI: COMMON NORMALS: Soft to palpation, No hepatosplenomegaly present and no masses INSPECTION: Yes central obesity AUSCULTATION: Yes normoactive bowel sounds PALPATION: Yes Soft to palpation, No Guarding due to palpation present (GI), No Rigid due to palpation and Yes No hepatosplenomegaly present RECTAL EXAM: deferred OTHER: Tenderness just to the right of midline postoperative scar to the patient's abdomen. : COMMON NORMALS: Yes no CVA tenderness BLADDER/KIDNEY EXAM: Yes no CVA tenderness Back/Pelvis: COMMON NORMALS: no CVA tenderness Extremity: COMMON NORMALS: normal to inspection and full ROM Neuro: COMMON NORMALS: patient oriented x3, moves all extremities, no focal motor deficits and no sensory deficits noted SENSORIUM/ORIENTATION: Yes alert MENINGEAL SIGNS: Yes no meningeal signs Skin: COMMON NORMALS: no rashes or lesions noted GENERAL SKIN EXAM: no rashes or lesions noted Course 2 Vital Signs: Vital signs: Vital Signs Temperature 98.0 F 11/07/24 21:38 Pulse Rate 77 11/07/24 21:38 Respiratory Rate 16 11/07/24 21:38 Blood Pressure 114/74 11/07/24 21:38 Pulse Oximetry 98 11/07/24 21:38 Oxygen Delivery Me thod Room Air 11/07/24 21:38 MDM - Abdominal Pain Lab Data 11/07/24 23:06 11/07/24 23:06 Labs/Radiology: Radiology Impressions Abdomen/Pelvis CT 11/07/24 23:22 IMPRESSION: No acute intra-abdominal process. COMMENTS: Consistent with the [employer]'s Incidental Findings Committee white paper (J Am Giuliano Radiol 2018): Any incidental renal lesion less than 1 cm or classified as too small to characterize, or any incidental cystic renal lesion characterized as simple-appearing, is likely benign. No follow-up imaging is recommended for these lesions per consensus recommendations based on imaging criteria. Laboratory Results WBC 5.90 10^3/uL (3.29-11.43) 11/07/24 23:06 RBC 4.44 10^6/uL (3.85-5.65) 11/07/24 23:06 Hgb 11.90 g/dL (11.27-16.99) 11/07/24 23:06 Hct 37.2 % (36-47) 11/07/24 23:06 MCV 83.8 fl (85-98) L 11/07/24 23:06 MCH 26.8 pg (27-33) L 11/07/24 23:06 MCHC 32.0 g/dL (30-55) 11/07/24 23:06 RDW 13.7 % (12.1-15.1) 11/07/24 23:06 Plt Count 156 10^3/cmm (157-399) L 11/07/24 23:06 MPV 11.4 fL (7.4-10.4) H 11/07/24 23:06 Neut % (Auto) 47.4 % 11/07/24 23:06 Lymph % (Auto) 42.2 % 11/07/24 23:06 Greer % (Auto) 7.1 % 11/07/24 23:06 Eos % (Auto) 2.7 % 11/07/24 23:06 Baso % (Auto) 0.3 % 11/07/24 23:06 Neut # (Auto) 2.79 10^3/uL (1.8-7.7) 11/07/24 23:06 Lymph # (Auto) 2.5 10^3/uL (0.8-4.8) 11/07/24 23:06 Greer # (Auto) 0.4 10^3/uL (0.2-0.9) 11/07/24 23:06 Eos # (Auto) 0.2 10^3/uL (0.0-0.8) 11/07/24 23:06 Baso # (Auto) 0.0 10^3/uL (0.0-0.1) 11/07/24 23:06 Nucleated RBC % (auto) 0 % 11/07/24 23:06 Nucleated RBCs # 0.0 /100WBC 11/07/24 23:06 Sodium 140 mmol/L (136-145) 11/07/24 23:06 Potassium 3.6 mmol/L (3.5-5.1) 11/07/24 23:06 Chloride 102 mmol/L (98-107) 11/07/24 23:06 Carbon Dioxide 29 mmol/L (22-29) 11/07/24 23:06 Anion Gap 12.6 (5-19) 11/07/24 23:06 BUN 12 mg/dL (6-20) 11/07/24 23:06 Creatinine 0.9 mg/dL (0.5-0.9) 11/07/24 23:06 GFR Calculation 64.3 mL/min (90-130) L 11/07/24 23:06 Glucose 134 mg/dL (65-115) H 11/07/24 23:06 Calculated Osmolality 292 mOsm/kg (285-295) 11/07/24 23:06 Lactic Acid 2.0 mmol/L (0.5-2.2) 11/07/24 23:06 Calcium 9.0 mg/dL (8.5-10.5) 11/07/24 23:06 Total Bilirubin 0.2 mg/dL (0.15-1.2) 11/07/24 23:06 AST 12 U/L (0-32) 11/07/24 23:06 ALT 13 U/L (0-33) 11/07/24 23:06 Alkaline Phosphatase 94 U/L (35-105) 11/07/24 23:06 Total Protein 6.2 g/dL (6.6-8.7) L 11/07/24 23:06 Albumin 3.8 g/dL (3.5-5.2) 11/07/24 23:06 Globulin 2.4 g/dL (1.3-4.6) 11/07/24 23:06 Lipase 55 U/L (13-60) 11/07/24 23:06 Discharge Plan Discharge Patient Disposition: Home Clinical Impression: Abdominal pain Qualifiers: Abdominal location: unspecified location Qualified Code(s): R10.9 - Unspecified abdominal pain Condition: Stable Prescriptions: No Action topiramate [Topamax] 100 mg tablet 100 mg PO DAILY Qty: 30 3RF Aimovig Autoinjector 140 mg/mL auto-injector See Rx Instructions .ROUTE .COMPLEX Qty: 1 11RF Dose Instruction: INJECT 1 PEN SUB-Q ONCE MONTHLY FOR MIGRAINES Rx Instructions: INJECT 1 PEN SUB-Q ONCE MONTHLY FOR MIGRAINES sumatriptan succinate 100 mg tablet See Rx Instructions .Route .COMPLEX Qty: 12 11RF Rx Instructions: take 1 may repeat in an hour prn migraine quetiapine [Seroquel] 50 mg tablet 50 mg PO BEDTIME Qty: 30 6RF quetiapine [Seroquel] 25 mg tablet 25 mg PO BID PRN (Reason: anxiety/psychosis) Qty: 60 3RF sertraline [Zoloft] 50 mg tablet 50 mg PO QAM Qty: 30 6RF Rx Instructions: Take one tablet every morning trazodone 100 mg tablet 200 mg PO BEDTIME Qty: 30 6RF Rx Instructions: Take two tablets at bedtime carvedilol 25 mg tablet 25 mg PO BID Qty: 180 3RF pantoprazole 40 mg tablet,delayed release (DR/EC) 40 mg PO QAM promethazine 25 mg tablet 25 mg PO Q6H PRN (Reason: nausea and vomiting) Qty: 20 0RF potassium chloride 10 mEq tablet extended release 10 meq PO DAILY PRN (Reason: Edema) furosemide 20 mg tablet 20 mg PO DAILY PRN (Reason: Edema) acyclovir 800 mg tablet 800 mg PO TID PRN (Reason: BREAKOUTS) pregabalin 100 mg capsule 100 mg PO Q12H MDD 2 caps ondansetron 4 mg tablet,disintegrating 4 mg PO Q6H PRN (Reason: nausea and vomiting) Qty: 14 0RF Discharge Orders: Discharge ED (Routine); Ordered 11/08/24 Ordered By: Ruben Russo Referrals: Roseanne Marin PA [Primary Care Provider] - 1 week Patient Instructions: Abdominal Pain (ED) Activity Restrictions/Additional Instructions: Thank you for choosing [facility] for your healthcare needs today. Please realize that you were seen in the emergency department and that we are providing you with an emergency medical screening exam and this may not be a complete and all exclusive of all testing and/or medical workup we may need to determine your element or severity of your illness. It is very important that you follow-up as instructed with your primary care provider or specialist for the additional evaluation and to discuss your medical treatment plan. You may return to the emergency department should you have concerns or if your condition changes or worsens in any way. Coding Level of Care Code ED Supervisor Sewer Maintenance for Chg Fwd Documented by User: Ruben Russo DO 11/08/24 01:31 HPI - Abdominal Pain 2 General: Chief Complaint: Abdominal Pain Stated Complaint: post surg. pain odd pulling in lower right abd Time Seen by Provider: 11/07/24 23:10 Related Data Home Medications Medication Instructions Recorded Confirmed acyclovir 800 mg tablet 800 mg PO TID PRN BREAKOUTS 09/02/22 09/11/24 pregabalin 100 mg capsule 100 mg PO Q12H 09/02/22 09/11/24 pantoprazole 40 mg tablet,delayed 40 mg PO QAM 06/14/23 09/11/24 release furosemide 20 mg tablet 20 mg PO DAILY PRN Edema 05/29/24 09/11/24 potassium chloride 10 mEq 10 meq PO DAILY PRN Edema 05/29/24 09/11/24 tablet,extended release Previous Rx's Medication Instructions Recorded ondansetron 4 mg disintegrating 4 mg PO Q6H PRN nausea and 10/04/23 tablet vomiting #14 tabs promethazine 25 mg tablet 25 mg PO Q6H PRN nausea and 01/16/24 vomiting #20 tabs carvedilol 25 mg tablet 25 mg PO BID #180 tabs 06/21/24 erenumab-aooe 140 mg/mL See Rx Instructions .Route 08/08/24 subcutaneous auto-injector .COMPLEX #1 mL (Aimovig Autoinjector) sumatriptan succinate 100 mg tablet See Rx Instructions .Route 08/08/24 .COMPLEX #12 tabs topiramate 100 mg tablet (Topamax) 100 mg PO DAILY #30 tabs 08/08/24 quetiapine 25 mg tablet (Seroquel) 25 mg PO BID PRN anxiety/psychosis 09/11/24 #60 tabs quetiapine 50 mg tablet (Seroquel) 50 mg PO BEDTIME #30 tabs 09/11/24 sertraline 50 mg tablet (Zoloft) 50 mg PO QAM #30 tabs 09/11/24 trazodone 100 mg tablet 200 mg (2 x 100 mg) PO BEDTIME 09/11/24 Sleep #30 tabs Allergies Allergy/AdvReac Type Severity Reaction Status Date / Time risperidone [From Risperdal] Allergy Severe ADR-Faintin Verified 09/11/24 12:43 g dexchlorpheniramine Allergy ADR-Faintin Verified 09/11/24 12:43 [From Rymed g (dexchlorpheniramine-PE)] phenylephrine Allergy ADR-Faintin Verified 09/11/24 12:43 [From Rymed g (dexchlorpheniramine-PE)] Sulfa (Sulfonamide Allergy ALGY-Hives Verified 09/11/24 12:43 Antibiotics) amlodipine AdvReac Mild Unknown Verified 09/11/24 12:43 morphine AdvReac Mild ADR-Headach Verified 09/11/24 12:43 e PFSH ED 2 PFSH: Medical History Borderline personality disorder Small bowel obstruction Acute cystitis without hematuria Partial small bowel obstruction Dehydration Hypertension Obesity (BMI 30-39.9) History of Holter monitoring 04/2023 Baseline rhythm is sinus rhythm. HR ranged from 56-135, avg 80 bpm, nnspecified patient symptom correlated with isolated PVC History of electroencephalogram 05/2023 IMPRESSION: This was a normal routine EEG, awake and drowsy and asleep, with no behavioral or electrographic epileptiform activity. A normal EEG does not exclude a diagnosis of epilepsy. DCIS (ductal carcinoma in situ) ER/CA negative, tamoxifen History of cardiac arrest Benign essential HTN Breast cancer Chronic migraine without aura, intractable, with status migrainosus Recurrent syncope History of colon polyps Psychiatric care Inappropriate sinus tachycardia Malignant hypertension History of malignant melanoma Fear of insects (Unknown) Specifically tics Major depressive disorder, recurrent, severe with psychotic symptoms [facility] managing Lumbar radiculitis Herpes genitalia Hot flashes Irritable bowel disease HTN (hypertension) with goal to be determined Surgical History History of appendectomy (01/2021) History of exploratory laparotomy (01/2021) with lysis of adhesions, performed due to SBO Hx of bilateral mastectomy History of colonoscopy Intra-abdominal adhesions (~10/2020) adhesiolysis / incidental appendectomy-- at same time as bowel obstruction H/O tubal ligation (~2008) Hx of abdominoplasty (~2009) History of augmentation of both breasts 2013 silicone implants, removed at time of mastectomies Hx of section (~2008) x 1 Hx of hernia repair (~2012) ventral (patient thinks mesh was used) Hx of hysterectomy (~2008) CHRISTINA-- ovaries spared. Hx of decompressive lumbar laminectomy ---2014 L5-S1 [facility] [place], [place]. ---10/20/2020 Revision; Dr Dalia ALBERT Family History Mother Breast cancer dx age unknown Hypertension Grandmother Breast cancer Maternal--dx age 60's Hypertension Maternal and Paternal Sister No problems noted. Daughter Uterine cancer dx age 28 Father Diabetes Hypertension Stroke Grandfather Hypertension maternal and Paternal Denies family history of Colon cancer Ovarian cancer Social History Smoking and tobacco/nicotine status: never used tobacco/nicotine Alcohol intake: current Alcohol intake frequency: holidays/special occasions only Alcohol type: wine Substance/Drug Use: never Do you think of yourself as: Straight/Heterosexual Course 2 Vital Signs: Vital signs: Vital Signs Temperature 98.0 F 11/07/24 21:38 Pulse Rate 77 11/07/24 21:38 Respiratory Rate 16 11/07/24 21:38 Blood Pressure 114/74 11/07/24 21:38 Pulse Oximetry 98 11/07/24 21:38 Oxygen Delivery Me thod Room Air 11/07/24 21:38 MDM - Abdominal Pain Medical Decision Making Care transferred over myself at shift change, reviewed the lab work and CT scan, discussed these results with the patient. Patient be discharged home. Lab Data 11/07/24 23:06 11/07/24 23:06 Labs/Radiology: Radiology Impressions Abdomen/Pelvis CT 11/07/24 23:22 IMPRESSION: No acute intra-abdominal process. COMMENTS: Consistent with the [employer]'s Incidental Findings Committee white paper (J Am Giuliano Radiol 2018): Any incidental renal lesion less than 1 cm or classified as too small to characterize, or any incidental cystic renal lesion characterized as simple-appearing, is likely benign. No follow-up imaging is recommended for these lesions per consensus recommendations based on imaging criteria. Laboratory Results WBC 5.90 10^3/uL (3.29-11.43) 11/07/24 23:06 RBC 4.44 10^6/uL (3.85-5.65) 11/07/24 23:06 Hgb 11.90 g/dL (11.27-16.99) 11/07/24 23:06 Hct 37.2 % (36-47) 11/07/24 23:06 MCV 83.8 fl (85-98) L 11/07/24 23:06 MCH 26.8 pg (27-33) L 11/07/24 23:06 MCHC 32.0 g/dL (30-55) 11/07/24 23:06 RDW 13.7 % (12.1-15.1) 11/07/24 23:06 Plt Count 156 10^3/cmm (157-399) L 11/07/24 23:06 MPV 11.4 fL (7.4-10.4) H 11/07/24 23:06 Neut % (Auto) 47.4 % 11/07/24 23:06 Lymph % (Auto) 42.2 % 11/07/24 23:06 Greer % (Auto) 7.1 % 11/07/24 23:06 Eos % (Auto) 2.7 % 11/07/24 23:06 Baso % (Auto) 0.3 % 11/07/24 23:06 Neut # (Auto) 2.79 10^3/uL (1.8-7.7) 11/07/24 23:06 Lymph # (Auto) 2.5 10^3/uL (0.8-4.8) 11/07/24 23:06 Greer # (Auto) 0.4 10^3/uL (0.2-0.9) 11/07/24 23:06 Eos # (Auto) 0.2 10^3/uL (0.0-0.8) 11/07/24 23:06 Baso # (Auto) 0.0 10^3/uL (0.0-0.1) 11/07/24 23:06 Nucleated RBC % (auto) 0 % 11/07/24 23:06 Nucleated RBCs # 0.0 /100WBC 11/07/24 23:06 Sodium 140 mmol/L (136-145) 11/07/24 23:06 Potassium 3.6 mmol/L (3.5-5.1) 11/07/24 23:06 Chloride 102 mmol/L (98-107) 11/07/24 23:06 Carbon Dioxide 29 mmol/L (22-29) 11/07/24 23:06 Anion Gap 12.6 (5-19) 11/07/24 23:06 BUN 12 mg/dL (6-20) 11/07/24 23:06 Creatinine 0.9 mg/dL (0.5-0.9) 11/07/24 23:06 GFR Calculation 64.3 mL/min (90-130) L 11/07/24 23:06 Glucose 134 mg/dL (65-115) H 11/07/24 23:06 Calculated Osmolality 292 mOsm/kg (285-295) 11/07/24 23:06 Lactic Acid 2.0 mmol/L (0.5-2.2) 11/07/24 23:06 Calcium 9.0 mg/dL (8.5-10.5) 11/07/24 23:06 Total Bilirubin 0.2 mg/dL (0.15-1.2) 11/07/24 23:06 AST 12 U/L (0-32) 11/07/24 23:06 ALT 13 U/L (0-33) 11/07/24 23:06 Alkaline Phosphatase 94 U/L (35-105) 11/07/24 23:06 Total Protein 6.2 g/dL (6.6-8.7) L 11/07/24 23:06 Albumin 3.8 g/dL (3.5-5.2) 11/07/24 23:06 Globulin 2.4 g/dL (1.3-4.6) 11/07/24 23:06 Lipase 55 U/L (13-60) 11/07/24 23:06 All radiology interpretation(s) finalized by discharge Discharge Plan Discharge Patient Disposition: Home Clinical Impression: Abdominal pain Qualifiers: Abdominal location: unspecified location Qualified Code(s): R10.9 - Unspecified abdominal pain Condition: Stable Prescriptions: No Action topiramate [Topamax] 100 mg tablet 100 mg PO DAILY Qty: 30 3RF Aimovig Autoinjector 140 mg/mL auto-injector See Rx Instructions .ROUTE .COMPLEX Qty: 1 11RF Dose Instruction: INJECT 1 PEN SUB-Q ONCE MONTHLY FOR MIGRAINES Rx Instructions: INJECT 1 PEN SUB-Q ONCE MONTHLY FOR MIGRAINES sumatriptan succinate 100 mg tablet See Rx Instructions .Route .COMPLEX Qty: 12 11RF Rx Instructions: take 1 may repeat in an hour prn migraine quetiapine [Seroquel] 50 mg tablet 50 mg PO BEDTIME Qty: 30 6RF quetiapine [Seroquel] 25 mg tablet 25 mg PO BID PRN (Reason: anxiety/psychosis) Qty: 60 3RF sertraline [Zoloft] 50 mg tablet 50 mg PO QAM Qty: 30 6RF Rx Instructions: Take one tablet every morning trazodone 100 mg tablet 200 mg PO BEDTIME Qty: 30 6RF Rx Instructions: Take two tablets at bedtime carvedilol 25 mg tablet 25 mg PO BID Qty: 180 3RF pantoprazole 40 mg tablet,delayed release (DR/EC) 40 mg PO QAM promethazine 25 mg tablet 25 mg PO Q6H PRN (Reason: nausea and vomiting) Qty: 20 0RF potassium chloride 10 mEq tablet extended release 10 meq PO DAILY PRN (Reason: Edema) furosemide 20 mg tablet 20 mg PO DAILY PRN (Reason: Edema) acyclovir 800 mg tablet 800 mg PO TID PRN (Reason: BREAKOUTS) pregabalin 100 mg capsule 100 mg PO Q12H MDD 2 caps ondansetron 4 mg tablet,disintegrating 4 mg PO Q6H PRN (Reason: nausea and vomiting) Qty: 14 0RF Discharge Orders: Discharge ED (Routine); Ordered 11/08/24 Ordered By: Ruben Russo Referrals: Roseanne Marin PA [Primary Care Provider] - 1 week Patient Instructions: Abdominal Pain (ED) Activity Restrictions/Additional Instructions: Thank you for choosing [facility] for your healthcare needs today. Please realize that you were seen in the emergency department and that we are providing you with an emergency medical screening exam and this may not be a complete and all exclusive of all testing and/or medical workup we may need to determine your element or severity of your illness. It is very important that you follow-up as instructed with your primary care provider or specialist for the additional evaluation and to discuss your medical treatment plan. You may return to the emergency department should you have concerns or if your condition changes or worsens in any way. Coding Level of Care Code ED Supervisor [employer] for 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
[2024-11-07 23:31] LABS: Alanine Aminotransferase 13 U/L (0-33); Albumin Level 3.8 g/dL (3.5-5.2); Alkaline Phosphatase 94 U/L (35-105); Anion Gap 12.6 (5-19); Aspartate Amino Transferase 12 U/L (0-32); Blood Urea Nitrogen 12 mg/dL (6-20); Carbon Dioxide 29 mmol/L (22-29); Chloride 102 mmol/L (98-107); Creatinine Clr Calc Pharmacy 67.3431; Globulin 2.4 g/dL (1.3-4.6); Glomerular Filtration Rate 64.3 mL/min (90-130); Glucose 134 mg/dL (65-115); Lipase 55 U/L (13-60); Osmolality Calculated 292 mOsm/kg (285-295); Potassium 3.6 mmol/L (3.5-5.1); Sodium 140 mmol/L (136-145); Total Bilirubin 0.2 mg/dL (0.15-1.2); Total Protein 6.2 g/dL (6.6-8.7)
[2024-11-08 01:53] VITALS: BP 176/98; PULSE 76; O2SAT 97
[2024-11-08 01:54] VITALS: BP 176/98; PULSE 76; O2SAT 97
== END 2024-11-08 01:58 | disposition home or self-care (01) ==
PROVIDERS: Emergency Medicine; Emergency Provider Physician Assistant; PCP Physician Assistant
DX: R10.9 Unspecified abdominal pain (principal); I10 Essential (primary) hypertension; Z85.3 Personal history of malignant neoplasm of breast
CPT/HCPCS: 36415; 74177; 80053; 83605; 83690; 85025; 99284

== ENCOUNTER → 2025-01-31 10:02 | Outpatient (BNVA) | payer MEDICARE, MEDICAID, SELFPAY ==
[2024-07-05 16:24] VITALS: BP 145/82; BMI 33.1
== END ==
PROVIDERS: PCP Physician Assistant; Visit Provider Internal Medicine Cardiovascular Disease
DX: I47.11 Inappropriate sinus tachycardia, so stated (principal); R73.03 Prediabetes; R19.7 Diarrhea, unspecified; I10 Essential (primary) hypertension; F33.3 Major depressive disorder, recurrent, severe with psychotic symptoms
CPT/HCPCS: 99214

== ENCOUNTER → 2025-08-07 08:03 | Outpatient (BNVA) | payer MEDICARE, MEDICAID, SELFPAY ==
[2024-07-05 16:24] VITALS: BP 145/82; BMI 33.1
== END ==
PROVIDERS: PCP Physician Assistant; Visit Provider Specialist
DX: G40.909 Epilepsy, unspecified, not intractable, without status epilepticus (principal); G43.711 Chronic migraine without aura, intractable, with status migrainosus; R41.82 Altered mental status, unspecified; F60.3 Borderline personality disorder; R55 Syncope and collapse
CPT/HCPCS: 99213